=== PATIENT | female | born 1965 | race Caucasian/White ===

== ENCOUNTER 2018-02-22 14:12 | Inpatient (IN) | payer MEDICARE, SELFPAY ==
[2018-02-22 14:15] VITALS: BP 133/76; PULSE 84; RESP 18; TEMP 37.1; O2SAT 96; BMI 28.5; BMI 28.6
--- NOTE | 2018-02-22 16:12 | PCM.PN.HOSP ---
Subjective: This is a 52-year-old white female who comes from [facility] today after undergoing a left below the knee amputation on February 18. Patient has some discomfort in her stump but otherwise is doing well. Patient's history he has documented coronary artery disease but patient adamantly denies any cardiac history. Patient did have a femoropopliteal bypass in September on the left but unfortunately was not enough to salvage her leg on the left. Vitals/I&O's: Vital Signs Temp Pulse Resp BP Pulse Ox 37.1 C 84 18 133/76 H 96 02/22/18 14:15 02/22/18 14:15 02/22/18 14:15 02/22/18 14:15 02/22/18 14:15 Oxygen Delivery Method Room Air Weight: 80.4 kg Body Mass Index (BMI) 28.5 General: Alert, Cooperative, No apparent distress HEENT: Atraumatic, Normocephalic Oral: Moist Mucosa, - - Edentulous Neck: No Nodes, Thyroid Normal Size and Texture Lungs: Clear to auscultation, Normal air movement, No rhonchi, No wheeze Cardiovascular: Regular rate, Regular Rhythm, Normal S1, Normal S2, No murmurs Abdomen: Bowel Sounds Present, Soft, Non Tender, Non-Distended, No Hepato-splenomegaly Extremities: No edema, No Calf Tenderness, - - Left below the knee amputation. Left stump wrapped in bandages, did not remove. Psych/Mental Status: Normal Affect, Appropriate Current Medications Acetaminophen (Tylenol) 650 mg PO Q6H PRN PRN PRN Reason: PAIN Apixaban (Eliquis) 5 mg PO BID [facility]I Aripiprazole (Abilify) 20 mg PO DAILY [facility]I Aspirin (Aspirin, Baby) 81 mg PO DAILY@0800 [facility] Bisacodyl (Dulcolax) 10 mg RECTAL .PRN X 1 PRN PRN Reason: Constipation Cholecalciferol (Vitamin D) 5,000 unit PO DAILY [facility] Lamotrigine (Lamictal) 200 mg PO DAILY [facility] Magnesium Hydroxide (Milk Of Magnesia) 30 ml PO .PRN X 1 PRN PRN Reason: Constipation Nifedipine (Procardia Xl) 30 mg PO DAILY [facility] Oxycodone HCl (Oxyir) 5 mg PO Q6H PRN PRN PRN Reason: PAIN Polyethylene Glycol (Miralax) 17 gm PO DAILY PRN PRN Reason: Constipation Pravastatin Sodium (Pravachol) 80 mg PO DAILY [facility] Senna/Docusate Sodium (Senokot-S, Mandy-Colace) 2 tablet PO BID [facility] Medical Necessity - Tobacco Use Smoking Status: Former smoker Assessment/Plan 1. Peripheral arterial disease Status post left femoropopliteal bypass and subsequent left below the knee amputation performed on February 18. Continue with aspirin and statin Follow-up with her vascular surgeon as outpatient as previously prescribed 2. Lupus anticoagulant No family history according to the patient Continue with Eliqusharon 3. Bipolar disorder Stable Continue with Mayra Beverly 4. DVT prophylaxis: Patient currently anticoagulated Thank you for the consult. The hospitalist service will follow. If acute issues arise please do not hesitate to contact the hospitalist service. Code Visit Inpatient E&M: 36590 Subs Hosp L2
--- NOTE | 2018-02-22 16:17 | PN_ITS ---
Subjective: This is a 52-year-old white female who comes from [facility] today after undergoing a left below the knee amputation on February 18. Patient has some discomfort in her stump but otherwise is doing well. Patient's history he has documented coronary artery disease but patient adamantly denies any cardiac history. Patient did have a femoropopliteal bypass in September on the left but unfortunately was not enough to salvage her leg on the left. Vitals/I&O's: Vital Signs Temp Pulse Resp BP Pulse Ox 37.1 C 84 18 133/76 H 96 02/22/18 14:15 02/22/18 14:15 02/22/18 14:15 02/22/18 14:15 02/22/18 14:15 Oxygen Delivery Method Room Air Weight: 80.4 kg Body Mass Index (BMI) 28.5 General: Alert, Cooperative, No apparent distress HEENT: Atraumatic, Normocephalic Oral: Moist Mucosa, - - Edentulous Neck: No Nodes, Thyroid Normal Size and Texture Lungs: Clear to auscultation, Normal air movement, No rhonchi, No wheeze Cardiovascular: Regular rate, Regular Rhythm, Normal S1, Normal S2, No murmurs Abdomen: Bowel Sounds Present, Soft, Non Tender, Non-Distended, No Hepato- splenomegaly Extremities: No edema, No Calf Tenderness, - - Left below the knee amputation. Left stump wrapped in bandages, did not remove. Psych/Mental Status: Normal Affect, Appropriate Current Medications Acetaminophen (Tylenol) 650 mg PO Q6H PRN PRN PRN Reason: PAIN Apixaban (Eliquis) 5 mg PO BID [facility] Aripiprazole (Abilify) 20 mg PO DAILY [facility] Aspirin (Aspirin, Baby) 81 mg PO DAILY@0800 [facility] Bisacodyl (Dulcolax) 10 mg RECTAL .PRN X 1 PRN PRN Reason: Constipation Cholecalciferol (Vitamin D) 5,000 unit PO DAILY [facility] Lamotrigine (Lamictal) 200 mg PO DAILY [facility] Magnesium Hydroxide (Milk Of Magnesia) 30 ml PO .PRN X 1 PRN PRN Reason: Constipation Nifedipine (Procardia Xl) 30 mg PO DAILY [facility] Oxycodone HCl (Oxyir) 5 mg PO Q6H PRN PRN PRN Reason: PAIN Polyethylene Glycol (Miralax) 17 gm PO DAILY PRN PRN Reason: Constipation Pravastatin Sodium (Pravachol) 80 mg PO DAILY [facility] Senna/Docusate Sodium (Senokot-S, Mandy-Colace) 2 tablet PO BID [facility] Medical Necessity - Tobacco Use Smoking Status: Former smoker Assessment/Plan 1. Peripheral arterial disease * Status post left femoropopliteal bypass and subsequent left below the knee amputation performed on February 18. * Continue with aspirin and statin * Follow-up with her vascular surgeon as outpatient as previously prescribed 2. Lupus anticoagulant * No family history according to the patient * Continue with Eliquis 3. Bipolar disorder * Stable * Continue with Abilify Lamictal 4. DVT prophylaxis: Patient currently anticoagulated Thank you for the consult. The hospitalist service will follow. If acute issues arise please do not hesitate to contact the hospitalist service. Code Visit Inpatient E&M: 84172 Subs Hosp L2
--- NOTE | 2018-02-22 16:26 | CHAPLAIN ---
Type of Pastoral Visit _x__ Initial Visit ___ Follow-up Visit ___ On-call Visit ___ General Patient Visit ___ Spiritual Assessment ___ Family Conference ___ Bereavement ___ Rapid Response ___ Code Blue ___ Other (describe below) Pastoral Care Referral From _x__ Patient ___ Family _x__ Nurse ___ Physician ___ Sugar Mill Worker ___ Firebrick Layer Helper ___ Other (describe below) Sacrament/Intervention _x__ Active listening ___ Anointing ___ Jainism ___ Bereavement ___ Communion ___ Philomena exploration ___ ___ Life review _x__ Prayer ___ Reconciliation ___ Sacrament of Sick ___ Supportive presence ___ Wedding ___ Other (describe below) Pastoral Comments patient had just been admitted; introduce pt to spiritual care services and offer of support; pt displays positive attitude and has a connection with a faith; pt is open to future visits and prayer;
[2018-02-22] MEDS: oxyCODONE 5 MG Tablet PO ×2 (16:30→22:30)
[2018-02-22] MEDS: Acetaminophen 325 MG Tablet 650 MG PO (18:29)
--- NOTE | 2018-02-22 19:07 | NURSING ---
Aware of being an fall risk and must ask for staff assist and verbalized understanding and demonstrated call uribe use.
[2018-02-22 19:27] VITALS: O2SAT 97
[2018-02-22] MEDS: Senna/Docusate Sodium 1 Tablet 2 TABLET PO (21:54)
[2018-02-22] MEDS: APIXABAN 5 MG TABLET PO (21:54)
[2018-02-22 22:00] VITALS: BP 132/77; PULSE 88; RESP 16; TEMP 37.1; O2SAT 98
[2018-02-23] MEDS: Acetaminophen 325 MG Tablet 650 MG PO ×5 (02:17→21:59)
[2018-02-23] MEDS: oxyCODONE 5 MG Tablet PO ×2 (04:30→10:53)
[2018-02-23 06:05] LABS: Hematocrit 31.6 % (37-47); Hemoglobin 9.9 g/dl (12.0-15.0); Mean Corp Hgb Conc 31.3 g/gl (32-36); Mean Corpuscular Hgb 27.3 pg (27.0-32.0); Mean Corpuscular Volume 87.3 fL (81-99); Mean Platelet Vol. 9.1 fl (6.2-12.0); Platelet Count 480 K/mm3 (150-450); RBC Distribution Width CV 14.8 % (11.6-14.6); RBC Distribution Width SD 47.4 fl (35.1-43.9); Red Blood Count 3.62 M/mm3 (4.2-5.4); White Blood Count 8.3 K/mm3 (4.4-11.0)
[2018-02-23 06:07] LABS: Scan Indicated on CBC? Y/N NO
[2018-02-23 06:16] LABS: Anion Gap 9 (5-15); BUN 11 mg/dL (7-18); BUN/Creat Ratio 18.2 RATIO (10-20); Calcium,Total 8.5 mg/dL (8.5-10.1); Chloride 109 mmol/L (98-107); EST Glomerular Filtration Rate 110 mL/min (>60); Est Glom Filt Rate - Afr Amer 133 mL/min (>60); Estimated Creatinine Clearance 102.68 ml/min; Glucose 97 mg/dL (74-106); Potassium 3.8 mmol/L (3.5-5.1); Sodium Level 142 mmol/L (136-145)
[2018-02-23 08:00] VITALS: O2SAT 99
[2018-02-23 08:13] VITALS: BP 142/82; PULSE 80; RESP 17; TEMP 37.1; O2SAT 99
[2018-02-23] MEDS: APIXABAN 5 MG TABLET PO ×2 (08:13→22:00)
[2018-02-23] MEDS: Aspirin 81 MG TAB.CHEW PO (08:14)
[2018-02-23] MEDS: NIFEdipine 30 MG Tablet PO (08:14)
[2018-02-23] MEDS: lamoTRIgine 100 MG Tablet 200 MG PO (08:14)
[2018-02-23] MEDS: Pravastatin 80 MG Tablet PO (08:14)
[2018-02-23] MEDS: ARIPiprazole 10 MG Tablet 20 MG PO (10:53)
--- NOTE | 2018-02-23 12:11 | PCM.HP.STD ---
History of Present Illness Date of Admission: 02/23/18 Chief Complaint: Debility The patient is a 52 year old F admitted to the rehab unit status post left below the knee amputation performed 02/18/18 at [facility]. Goal of rehab is [facility] of prior level of functional independence. Her surgeon at [facility] was Dr. Savage. Her postoperative course was unremarkable. She says that her peripheral vascular disease is on the basis of hypercoagulable state due to lupus anticoagulant as well as smoking. She quit smoking about 3 months ago. She lives alone in her own home with 3 steps up to the main floor but she will need to negotiate 13 stairs on a regular basis. She says her pain currently is not well controlled, she has used Lyrica in the past and tolerated it. She did not tolerate gabapentin in the past. She says at [facility] she was given OxyContin 10 mg every 4 hours alternating with Tylenol which helped her pain she is willing to reinitiate Lyrica as well. Complaints. Past Medical History Allergies bupropion HCl [From Wellbutrin] Allergy (Verified 04/19/14 06:26) Other gabapentin enacarbil [From Horizant] Allergy (Verified 04/19/14 06:26) Other Home Medications: Ambulatory Orders Medication Instructions Recorded Aripiprazole [Abilify] 20 mg PO DAILY 04/19/14 Cholecalciferol (Vitamin D3) 5,000 unit PO DAILY 04/19/14 [Vitamin D] Lamotrigine [Lamictal] 200 mg PO DAILY 04/19/14 Acetaminophen [Tylenol] 650 mg PO Q6H PRN PRN 02/22/18 Apixaban [Eliquis] 5 mg PO BID 02/22/18 Aspirin [Aspirin, Baby] 81 mg PO DAILY@0800 02/22/18 Nifedipine [Nifedipine ER] 30 mg PO DAILY 02/22/18 Oxycodone [Oxyir] 5 mg PO Q6H PRN PRN 02/22/18 Polyethylene Glycol 3350 [Miralax] 17 gm PO DAILY PRN 02/22/18 Pravastatin [Pravachol] 80 mg PO DAILY 02/22/18 Smoking Status: Former smoker Tobacco Use: Non-smoker Alcohol: None Drugs: None Review of Systems Constitutional: Denies: Chills, Fever, Weight Change HEENT: Denies: Head Aches, Sinus Congestion, Sinus Drainage Cardiovascular: Denies: Chest Pain, Palpitations Respiratory: Denies: Cough, Shortness of breath at rest, Sputum production Gastrointestinal: Denies: Abdominal Pain, Nausea, Vomiting Genitourinary: Denies: Dysuria Musculoskeletal: Denies: Joint Pain, Joint Tenderness Skin: Denies: Rash, Wounds Neurological: Denies: Numbness, Tingling, Focal weakness Psychiatric: Denies: Anxiety, Depression, Homicidal Ideations, Suicidal Ideations Hematologic/ Lymphatic: Denies: Easy Bruising, Easy Bleeding VTE Information - Inpt Only VTE Present on Admission: Yes VTE Pharm Prophylaxis ordered?: Yes - Physical Exam General: Alert, Oriented x3, Cooperative HEENT: Atraumatic, PERRLA, EOMI, Normocephalic Lungs: Clear to auscultation Cardiovascular: Regular rate Abdomen: Bowel Sounds Present Extremities: No edema, Capillary Refill Less than 3 Seconds Skin: No rashes, No breakdown Neurological: Cranial nerves II-XII grossly intact Psych/Mental Status: Normal Affect, Appropriate Vital Signs Temp Pulse Resp BP Pulse Ox 37.1 C 80 17 142/82 H 99 02/23/18 08:13 02/23/18 08:13 02/23/18 08:13 02/23/18 08:13 02/23/18 08:13 Oxygen Delivery Method Room Air Weight: 79.7 kg Body Mass Index (BMI) 28.5 Intake and Output for Last 24 Hours 02/21/18 02/22/18 02/23/18 23:59 23:59 23:59 Intake Total 320 / 320 Balance 320 / 320 Laboratory Tests Past 24 Hrs 02/23/18 02/23/18 05:05 05:05 WBC 8.3 RBC 3.62 L Hgb 9.9 L Hct 31.6 L MCV 87.3 MCH 27.3 MCHC 31.3 L RDW 14.8 H RDW Differential 47.4 H Plt Count 480 H MPV 9.1 Sodium 142 Potassium 3.8 Chloride 109 H Carbon Dioxide 24.0 Anion Gap 9 BUN 11 Creatinine 0.60 Estim Creat Clear Calc 102.68 Est GFR (MDRD) Af Amer 133 Est GFR (MDRD) Non-Af 110 BUN/Creatinine Ratio 18.2 Glucose 97 Calcium 8.5 Current Medications Acetaminophen 650 mg 02/22/18 15:47 02/23/18 08:13 Tylenol PO 650 mg Q6H PRN PRN Administration PAIN Apixaban 5 mg 02/22/18 22:00 02/23/18 08:13 Eliquis PO 5 mg BID WEI Administration Aripiprazole 20 mg 02/23/18 10:00 02/23/18 10:53 Abilify PO 20 mg DAILY [facility] Administration Aspirin 81 mg 02/23/18 08:00 02/23/18 08:14 Aspirin, Baby PO 81 mg DAILY@0800 WEI Administration Cholecalciferol 5,000 unit 02/23/18 10:00 02/23/18 08:13 Vitamin D PO 5,000 unit DAILY [facility]I Administration Lamotrigine 200 mg 02/23/18 10:00 02/23/18 08:14 Lamictal PO 200 mg DAILY [facility] Administration Nifedipine 30 mg 02/23/18 10:00 02/23/18 08:14 Procardia Xl PO 30 mg DAILY [facility] Administration Oxycodone HCl 5 - 10 mg 02/22/18 17:00 02/23/18 10:53 Oxyir PO 10 mg Q6H PRN PRN Administration PAIN Pravastatin Sodium 80 mg 02/23/18 10:00 02/23/18 08:14 Pravachol PO 80 mg DAILY [facility] Administration Senna/Docusate Sodium 2 tablet 02/22/18 22:00 02/23/18 08:15 Senokot-S, Mandy-Colace PO Not Given BID [facility] Assessment/Plan Debility status post left [id number] amputation. Goal of rehab is [facility] of functional independence prior. Currently wheelchair transfers. Plan: Physical therapy for transfers Occupational Therapy's for ADLs Bowel protocol As needed analgesics Anticoagulation/DVT prophylaxis: Tatiana, history of lupus anticoagulant
--- NOTE | 2018-02-23 12:14 | HP.PCM_ITS ---
History of Present Illness Date of Admission: 02/23/18 Chief Complaint: Debility The patient is a 52 year old F admitted to the rehab unit status post left below the knee amputation performed 02/18/18 at [facility]. Goal of rehab is denominational of prior level of functional independence. Her surgeon at [facility] was Dr. Savage. Her postoperative course was unremarkable. She says that her peripheral vascular disease is on the basis of hypercoagulable state due to lupus anticoagulant as well as smoking. She quit smoking about 3 months ago. She lives alone in her own home with 3 steps up to the main floor but she will need to negotiate 13 stairs on a regular basis. She says her pain currently is not well controlled, she has used Lyrica in the past and tolerated it. She did not tolerate gabapentin in the past. She says at [facility] she was given OxyContin 10 mg every 4 hours alternating with Tylenol which helped her pain she is willing to reinitiate Lyrica as well. Complaints. Past Medical History Allergies bupropion HCl [From Wellbutrin] Allergy (Verified 04/19/14 06:26) Other gabapentin enacarbil [From Horizant] Allergy (Verified 04/19/14 06:26) Other Home Medications: Ambulatory Orders Medication Instructions Recorded Aripiprazole [Abilify] 20 mg PO DAILY 04/19/14 Cholecalciferol (Vitamin D3) 5,000 unit PO DAILY 04/19/14 [Vitamin D] Lamotrigine [Lamictal] 200 mg PO DAILY 04/19/14 Acetaminophen [Tylenol] 650 mg PO Q6H PRN PRN 02/22/18 Apixaban [Eliquis] 5 mg PO BID 02/22/18 Aspirin [Aspirin, Baby] 81 mg PO DAILY@0800 02/22/18 Nifedipine [Nifedipine ER] 30 mg PO DAILY 02/22/18 Oxycodone [Oxyir] 5 mg PO Q6H PRN PRN 02/22/18 Polyethylene Glycol 3350 [Miralax] 17 gm PO DAILY PRN 02/22/18 Pravastatin [Pravachol] 80 mg PO DAILY 02/22/18 Smoking Status: Former smoker Tobacco Use: Non-smoker Alcohol: None Drugs: None Review of Systems Constitutional: Denies: Chills, Fever, Weight Change HEENT: Denies: Head Aches, Sinus Congestion, Sinus Drainage Cardiovascular: Denies: Chest Pain, Palpitations Respiratory: Denies: Cough, Shortness of breath at rest, Sputum production Gastrointestinal: Denies: Abdominal Pain, Nausea, Vomiting Genitourinary: Denies: Dysuria Musculoskeletal: Denies: Joint Pain, Joint Tenderness Skin: Denies: Rash, Wounds Neurological: Denies: Numbness, Tingling, Focal weakness Psychiatric: Denies: Anxiety, Depression, Homicidal Ideations, Suicidal Ideations Hematologic/ Lymphatic: Denies: Easy Bruising, Easy Bleeding VTE Information - Inpt Only VTE Present on Admission: Yes VTE Pharm Prophylaxis ordered?: Yes - Physical Exam General: Alert, Oriented x3, Cooperative HEENT: Atraumatic, PERRLA, EOMI, Normocephalic Lungs: Clear to auscultation Cardiovascular: Regular rate Abdomen: Bowel Sounds Present Extremities: No edema, Capillary Refill Less than 3 Seconds Skin: No rashes, No breakdown Neurological: Cranial nerves II-XII grossly intact Psych/Mental Status: Normal Affect, Appropriate Vital Signs Temp Pulse Resp BP Pulse Ox 37.1 C 80 17 142/82 H 99 02/23/18 08:13 02/23/18 08:13 02/23/18 08:13 02/23/18 08:13 02/23/18 08:13 Oxygen Delivery Method Room Air Weight: 79.7 kg Body Mass Index (BMI) 28.5 Intake and Output for Last 24 Hours 02/21/18 02/22/18 02/23/18 23:59 23:59 23:59 Intake Total 320 / 320 Balance 320 / 320 Laboratory Tests Past 24 Hrs 02/23/18 02/23/18 05:05 05:05 WBC 8.3 RBC 3.62 L Hgb 9.9 L Hct 31.6 L MCV 87.3 MCH 27.3 MCHC 31.3 L RDW 14.8 H RDW Differential 47.4 H Plt Count 480 H MPV 9.1 Sodium 142 Potassium 3.8 Chloride 109 H Carbon Dioxide 24.0 Anion Gap 9 BUN 11 Creatinine 0.60 Estim Creat Clear Calc 102.68 Est GFR (MDRD) Af Amer 133 Est GFR (MDRD) Non-Af 110 BUN/Creatinine Ratio 18.2 Glucose 97 Calcium 8.5 Current Medications Acetaminophen 650 mg 02/22/18 15:47 02/23/18 08:13 Tylenol PO 650 mg Q6H PRN PRN Administration PAIN Apixaban 5 mg 02/22/18 22:00 02/23/18 08:13 Eliquis PO 5 mg BID WEI Administration Aripiprazole 20 mg 02/23/18 10:00 02/23/18 10:53 Abilify PO 20 mg DAILY [facility] Administration Aspirin 81 mg 02/23/18 08:00 02/23/18 08:14 Aspirin, Baby PO 81 mg DAILY@0800 [facility] Administration Cholecalciferol 5,000 unit 02/23/18 10:00 02/23/18 08:13 Vitamin D PO 5,000 unit DAILY [facility] Administration Lamotrigine 200 mg 02/23/18 10:00 02/23/18 08:14 Lamictal PO 200 mg DAILY [facility] Administration Nifedipine 30 mg 02/23/18 10:00 02/23/18 08:14 Procardia Xl PO 30 mg DAILY [facility] Administration Oxycodone HCl 5 - 10 mg 02/22/18 17:00 02/23/18 10:53 Oxyir PO 10 mg Q6H PRN PRN Administration PAIN Pravastatin Sodium 80 mg 02/23/18 10:00 02/23/18 08:14 Pravachol PO 80 mg DAILY [facility] Administration Senna/Docusate Sodium 2 tablet 02/22/18 22:00 02/23/18 08:15 Senokot-S, Mandy-Colace PO Not Given BID [facility] Assessment/Plan Debility status post left [id number] amputation. Goal of rehab is denominational of functional independence prior. Currently wheelchair transfers. Plan: Physical therapy for transfers Occupational Therapy's for ADLs Bowel protocol As needed analgesics Anticoagulation/DVT prophylaxis: Tatiana, history of lupus anticoagulant
--- NOTE | 2018-02-23 12:14 | PCM.RU.PYE ---
Admission Information Status Changes from Prescreening?: No changes Identified Actual Problem List:: Pain, ALteration in Cmfrt, Alteration in Sleep, Mobility Impaired, Self Care Deficit, Ineffect.D/C Plan r/t Psy Potential Problem List:: DVT, Bleeding, Infection, UTI, Aspiration, Falls, Skin Integrity, Depression Risk of Complications DVT: LMWH, THOMAS Hose, Sequential Compression Device Bleeding: Monitor Lab Values, Nursing to Teach Precautions for anti-coagulation therapy., Wound, if applicable, to be assessed every shift., Stroke patients assessed for lethargy or change in status. Infection: Clinical Staff to Monitor for S/S of infection:, S/S of infection include fever, redness, warmth, etc. Urinary Tract Infection: Monitor for frequency, burning, discomfort, or incontinence., Nursing will obtain urine sample for urinalysis and C&S when ordered. Aspiration: Clinical staff will monitor for coughing, drooling, congestion., Speech will evaluate swallowing and dsyphasia., Nursing will monitor patient swallowing during meals. Falls: Patient will be evaluated for Fall Precautions, Patient will be placed on Fall Precautions as indicated per protocol. Skin Breakdown: Nursing will assess skin daily using assessment tool., Nursing will place on Skin Breakdown Precautions as indicated. Pain: Clinical staff will assess patient's pain level per protocol., Medications will be given, if needed, and the pain level reassessed., Other methods: Massage, distraction, decrease stimulus, etc. used PRN. Plan of Care Patient requires physician specializing in physical medicine and rehab oversight to provide close medical supervision of rehab issues including: Pain Management, Sleep Problems, Bowel and Bladder, Medical and co-morbidity Management, DVT prophylaxis, Rehabilitation Leadership, Coordination of treatment team Patient needs Physical Therapy: For a minimum of 1 hour, At least 5 out of 7 days Patient needs Physical Therapy to improve:: Mobility, Mobility, Mobility, Strengthening, Transfers, Stretching, ROM, Endurance, Stairs, Gait, Balance Patient needs Occupational Therapy: For a minimum of 1 hour, At least 5 out of 7 days Patient needs Occupational Therapy to improve ADL's incl.: Eating, Grooming, Bathing, Dressing, Toileting, Toilet transfers, Community Reintegration, Higher functioning activities, Household tasks, Adaptive Equipment, Splinting, Other activities as determined Patient requires 24/ Rehabilitation Nursing for: Pain Issues, Identifying and preventing risk factors, Monitoring and reporting current medical conditions, Assisting with ambulation, transfer, and all ADL's, Teaching patients about disease process and medications, Family teaching, Providing safe environment, Bowel and Bladder Issues, Skin integrity, Medication Management Patient needs Service Restorer Emergency/ Case Management for: Discharge Planning, Arranging Home Equipment or Services, Family Interventions Patient needs Dietary and Nutrition Services for: Adequate Nutrition, Nutritional Supplements, Nutritional Education Goals Patient will remain: free from falls, or injury at time of discharge. Patient will perform bed mobility at: MOD I level of assist. Patient will complete transfers from bed to chair at: MOD I level of assist. Patient will ambulate: with LRD Patient will complete upper body dressing at: MOD I level of assist. Patient will complete lower body dressing at: MOD I level of assist. Patient will complete toileting at: MOD I level of assist. Patient will perform bathing at: MOD I level of assist. Patient will complete grooming at: MOD I level of assist. Patient will complete home management skills at: MOD I level of assist. Patient will achieve: 12 stairs, at MOD I assist Patient will have pain level of: of 3 or less Patient's skin will: remain intact, free from infection. Patient will receive: adequate nutrition. Discharge Planning Pt Prognosis for Sig. Practical Improv. w/in Reasonable Time: Good Anticipated D/C Destination: Home with Outpt Therapy Was Preadmission Assessment Accurate?: Yes
[2018-02-23] MEDS: Pregabalin 25 MG Capsule PO ×2 (13:59→22:00)
[2018-02-23] MEDS: oxyCODONE 5 MG Tablet 10 MG PO ×2 (16:14→20:15)
[2018-02-23 20:02] VITALS: BP 127/77; PULSE 82; RESP 17; TEMP 36.7; O2SAT 96
[2018-02-23] MEDS: Senna/Docusate Sodium 1 Tablet 2 TABLET PO (22:00)
[2018-02-24] MEDS: Acetaminophen 325 MG Tablet 650 MG PO ×4 (06:09→18:47)
[2018-02-24 06:59] VITALS: O2SAT 98
[2018-02-24 07:19] VITALS: BP 145/68; PULSE 87; RESP 20; TEMP 36.9; O2SAT 96
[2018-02-24] MEDS: Senna/Docusate Sodium 1 Tablet 2 TABLET PO ×2 (08:25→21:35)
[2018-02-24] MEDS: oxyCODONE 5 MG Tablet 10 MG PO ×4 (08:25→21:24)
[2018-02-24] MEDS: lamoTRIgine 100 MG Tablet 200 MG PO (08:26)
[2018-02-24] MEDS: Aspirin 81 MG TAB.CHEW PO (08:26)
[2018-02-24] MEDS: ARIPiprazole 10 MG Tablet 20 MG PO (08:27)
[2018-02-24] MEDS: Pregabalin 25 MG Capsule PO ×2 (08:55→21:25)
[2018-02-24] MEDS: Pravastatin 80 MG Tablet PO (08:56)
[2018-02-24] MEDS: APIXABAN 5 MG TABLET PO ×2 (08:56→21:35)
[2018-02-24] MEDS: NIFEdipine 30 MG Tablet PO (08:56)
--- NOTE | 2018-02-24 09:59 | PCM.PN.NEU ---
Subjective: Patient is improved today but she would like her medications given around the clock instead of while awake. No other complaints. Tolerating therapies. No GI or complaints. - Physical Exam General: Alert, Oriented x3, Cooperative, No apparent distress Neurological: Cranial nerves II-XII grossly intact Psych/Mental Status: Normal Affect, Alert and oriented to time, place, person, mood and affect Vital Signs Temp Pulse Resp BP Pulse Ox 36.9 C 87 20 H 145/68 H 96 02/24/18 07:19 02/24/18 07:19 02/24/18 07:19 02/24/18 07:19 02/24/18 07:19 Oxygen Delivery Method Room Air Weight: 79.7 kg Body Mass Index (BMI) 28.5 Intake and Output for Last 24 Hours 02/22/18 02/23/18 02/24/18 23:59 23:59 23:59 Intake Total 800 / 800 240 / 240 Output Total 520 / 520 Balance 280 / 280 240 / 240 Current Medications Generic Name Dose Route Start Last Admin Trade Name Kiq PRN Reason Stop Dose Admin Acetaminophen 650 mg 02/23/18 14:00 02/24/18 06:09 Tylenol PO 650 mg Q4HWA WEI Administration Apixaban 5 mg 02/22/18 22:00 02/24/18 08:56 Eliquis PO 5 mg BID WEI Administration Aripiprazole 20 mg 02/23/18 10:00 02/24/18 08:27 Abilify PO 20 mg DAILY [facility] Administration Aspirin 81 mg 02/23/18 08:00 02/24/18 08:26 Aspirin, Baby PO 81 mg DAILY@0800 [facility] Administration Bisacodyl 10 mg 02/22/18 15:48 Dulcolax RECTAL .PRN X 1 PRN Constipation Cholecalciferol 5,000 unit 02/23/18 10:00 02/24/18 08:26 Vitamin D PO 5,000 unit DAILY [facility] Administration Lamotrigine 200 mg 02/23/18 10:00 02/24/18 08:26 Lamictal PO 200 mg DAILY [facility] Administration Magnesium Hydroxide 30 ml 02/22/18 15:48 Milk Of Magnesia PO .PRN X 1 PRN Constipation Nifedipine 30 mg 02/23/18 10:00 02/24/18 08:56 Procardia Xl PO 30 mg DAILY [facility] Administration Oxycodone HCl 10 mg 02/24/18 12:00 Oxyir PO Q4H [facility] Polyethylene Glycol 17 gm 02/22/18 15:47 Miralax PO DAILY PRN Constipation Pravastatin Sodium 80 mg 02/23/18 10:00 02/24/18 08:56 Pravachol PO 80 mg DAILY [facility] Administration Pregabalin 25 mg 02/23/18 22:00 02/24/18 08:55 Lyrica PO 25 mg BID [facility] Administration Senna/Docusate Sodium 2 tablet 02/22/18 22:00 02/24/18 08:25 Senokot-S, Mandy-Colace PO 2 tablet BID [facility]I Administration Medical Necessity - Tobacco Use Smoking Status: Former smoker Tobacco Use: Non-smoker Assessment/Plan Debility status post left [id number] amputation. Goal of rehab is uats[facility] of functional independence prior. Currently wheelchair transfers. Plan: Physical therapy for transfers Occupational Therapy's for ADLs Bowel protocol As needed analgesics: increase oxy to q4 Anticoagulation/DVT prophylaxis: Eliquis, history of lupus anticoagulant
[2018-02-24 22:00] VITALS: PULSE 74; RESP 16; O2SAT 97
[2018-02-25] MEDS: Acetaminophen 325 MG Tablet 650 MG PO ×6 (00:22→21:10)
[2018-02-25] MEDS: oxyCODONE 5 MG Tablet 10 MG PO ×7 (01:04→23:47)
--- NOTE | 2018-02-25 07:20 | NURSING ---
pt reports that her pain is at a 7-8 on pain scale land that is what she is use to at this time. pt is currently in bed reports that she is tired from not sleeping and is not tired from the medication
[2018-02-25 08:00] VITALS: BP 121/74; PULSE 75; RESP 18; TEMP 36.7; O2SAT 96
[2018-02-25] MEDS: Pravastatin 80 MG Tablet PO (08:31)
[2018-02-25] MEDS: ARIPiprazole 10 MG Tablet 20 MG PO (08:31)
[2018-02-25] MEDS: NIFEdipine 30 MG Tablet PO (08:31)
[2018-02-25] MEDS: lamoTRIgine 100 MG Tablet 200 MG PO (08:31)
[2018-02-25] MEDS: Aspirin 81 MG TAB.CHEW PO (08:31)
[2018-02-25] MEDS: Senna/Docusate Sodium 1 Tablet 2 TABLET PO ×2 (09:34→21:53)
[2018-02-25] MEDS: APIXABAN 5 MG TABLET PO ×2 (09:35→21:53)
[2018-02-25] MEDS: Pregabalin 25 MG Capsule PO ×2 (09:36→21:10)
[2018-02-25 19:55] VITALS: BP 126/63; PULSE 80; RESP 15; TEMP 36.8; O2SAT 99
[2018-02-25 22:00] VITALS: PULSE 80; RESP 15; O2SAT 99
[2018-02-26] MEDS: oxyCODONE 5 MG Tablet 10 MG PO ×5 (04:00→20:01)
[2018-02-26] MEDS: Acetaminophen 325 MG Tablet 650 MG PO ×5 (06:43→21:02)
[2018-02-26] MEDS: ARIPiprazole 10 MG Tablet 20 MG PO (08:00)
[2018-02-26] MEDS: Pregabalin 25 MG Capsule PO ×2 (08:00→21:02)
[2018-02-26] MEDS: Senna/Docusate Sodium 1 Tablet 2 TABLET PO ×2 (08:00→21:02)
[2018-02-26] MEDS: lamoTRIgine 100 MG Tablet 200 MG PO (08:01)
[2018-02-26] MEDS: APIXABAN 5 MG TABLET PO ×2 (08:01→21:02)
[2018-02-26] MEDS: Aspirin 81 MG TAB.CHEW PO (08:01)
[2018-02-26] MEDS: Pravastatin 80 MG Tablet PO (08:02)
[2018-02-26] MEDS: NIFEdipine 30 MG Tablet PO (08:02)
[2018-02-26 08:03] VITALS: BP 116/67; PULSE 89; RESP 16; TEMP 36.8; O2SAT 99
[2018-02-26 19:14] VITALS: BP 124/78; PULSE 85; RESP 16; TEMP 36.8; O2SAT 98
[2018-02-27] MEDS: oxyCODONE 5 MG Tablet 10 MG PO ×6 (01:03→20:01)
--- NOTE | 2018-02-27 04:25 | NURSING ---
Pt postponed oxyir 0400 admin d/t feeling upset stomach and/or possible need for a bm. Pt provided saltine crackers, kevin-john, and toileting by staff. Pain med returned and will monitor pt.
--- NOTE | 2018-02-27 05:13 | NURSING ---
Upon monitoring pt, stomach upset has past and pt provided scheduled oxyir per request. Pain meds given with saltine crackers. Pt declined awakened at this time to get ready for the day. pt requests sleeping for awhile longer.
[2018-02-27] MEDS: Acetaminophen 325 MG Tablet 650 MG PO ×5 (06:20→21:51)
[2018-02-27] MEDS: lamoTRIgine 100 MG Tablet 200 MG PO (07:56)
[2018-02-27] MEDS: NIFEdipine 30 MG Tablet PO (07:57)
[2018-02-27] MEDS: Pravastatin 80 MG Tablet PO (07:57)
[2018-02-27] MEDS: Aspirin 81 MG TAB.CHEW PO (07:57)
[2018-02-27] MEDS: APIXABAN 5 MG TABLET PO ×2 (07:57→21:51)
[2018-02-27] MEDS: Senna/Docusate Sodium 1 Tablet 2 TABLET PO ×2 (07:57→21:52)
[2018-02-27] MEDS: ARIPiprazole 10 MG Tablet 20 MG PO (08:00)
[2018-02-27] MEDS: Pregabalin 25 MG Capsule PO ×2 (09:56→21:51)
[2018-02-27 09:58] VITALS: BP 129/71; PULSE 72; RESP 16; TEMP 36.7; O2SAT 97
[2018-02-27 19:57] VITALS: BP 106/64; PULSE 89; RESP 18; TEMP 36.4; O2SAT 98
[2018-02-28] MEDS: oxyCODONE 5 MG Tablet 10 MG PO ×6 (00:25→20:15)
[2018-02-28] MEDS: Acetaminophen 325 MG Tablet 650 MG PO ×5 (06:22→21:22)
[2018-02-28] MEDS: lamoTRIgine 100 MG Tablet 200 MG PO (07:48)
[2018-02-28] MEDS: NIFEdipine 30 MG Tablet PO (07:48)
[2018-02-28] MEDS: Aspirin 81 MG TAB.CHEW PO (07:48)
[2018-02-28] MEDS: ARIPiprazole 10 MG Tablet 20 MG PO (07:48)
[2018-02-28] MEDS: Pravastatin 80 MG Tablet PO (07:48)
[2018-02-28] MEDS: APIXABAN 5 MG TABLET PO ×2 (07:48→21:21)
[2018-02-28] MEDS: Senna/Docusate Sodium 1 Tablet 2 TABLET PO ×2 (07:52→21:22)
[2018-02-28 08:30] VITALS: BP 123/76; PULSE 98; RESP 20; TEMP 36.5; O2SAT 97
[2018-02-28] MEDS: Pregabalin 25 MG Capsule PO ×2 (10:44→21:11)
--- NOTE | 2018-02-28 12:14 | CASEMGMT ---
Plan of care meeting held. Patient present as well as patient friend. No discharge date set at this time. Patient to continue with further care and treatment on the inpatient rehab unit. Patient approved 16 Medicare days with a discharge on or by 03/11/18. Patient plans to discharge to home with friends for support/24hr care as needed. Support given. Will continue to follow. Maryann OLIVER, ROLLER PICKER
--- NOTE | 2018-02-28 12:35 | PCM.PN.NEU ---
Subjective: NO issues overnight. Staffed in team meeting today. All questions were answered. 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 Savage on 02/18/18, admitted to [facility] with debility s/p Left BKA amputation, for > 3 hrs therapy, with a goal of returning back to her home at or near her prior level of functional independence. With AD-qjmzelosd-jbmzdxb assist, walked 35 feet, uses walker, still have to address stairs. With OT- dressing/bathing/lower body dressing is contact guard. She did complaint of phantom limb pain, with pain being around 7-9/10 intensity. - Physical Exam General: Alert HEENT: Normocephalic Neck: Supple Lungs: Normal air movement Cardiovascular: Normal S1, Normal S2 Abdomen: Bowel Sounds Present Extremities: No cyanosis Musculoskeletal: No Tenderness to Palpation of Joints or Extremities Neurological: Cranial nerves II-XII grossly intact, Neuro grossly intact, Motor Exam 5/5 strength throughout, Muscle tone normal, Sensory exam intact to light touch and pain, - - Left BKA, Reflexes + B/L B/S/T/K/A Vital Signs Temp Pulse Resp BP Pulse Ox 97.7 F L 98 20 H 123/76 H 97 02/28/18 08:30 02/28/18 08:30 02/28/18 08:30 02/28/18 08:30 02/28/18 08:30 Oxygen Delivery Method Room Air Weight: 79.7 kg Body Mass Index (BMI) 28.5 Intake and Output for Last 24 Hours 02/26/18 02/27/18 02/28/18 23:59 23:59 23:59 Intake Total 240 / 240 1120 / 1120 360 / 360 Balance 240 / 240 1120 / 1120 360 / 360 Medical Necessity - Tobacco Use Smoking Status: Former smoker Tobacco Use: Non-smoker Assessment/Plan 52 yr CF with PMH HTN, HLD, Lupus anticoagulant, PVD s/p angioplasty and bypass, Bipolar disorder, 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 Savage on 02/18/18, admitted to [facility] with debility s/p Left BKA amputation, for > 3 hrs therapy, with a goal of returning back to her home at or near her prior level of functional independence Plan -PT for gait stability -OT for ADLs -Analgesics as needed. On Oxy IR 10 mg PO q 4 hrly. Will start Duragesic patch 12 mcg daily and will change Oxy IR to PRN. Tylenol as needed. Is also on Lyrica 25 mg PO BID. -Left BKA- stable, no incision site redness or infection. -HTN-BP stable on Nifedipine -HLD- on Pravastatin -Lupus anticoagulant-on Eliquis -PVD- on ASA, Left BKA, no redness or infection of incision/suture site -Bipolar d/o- stable, on Aripiprazole and Lamictal 200 mg PO once daily. -GI/DVT prophylaxis -Follow up with Surgeon Dr. Savage on 03/22/18 and follow up for suture removal on 03/22/18. -Fall precautions -Further medical management per hospitalist recommendations.
--- NOTE | 2018-02-28 12:39 | PN.NEURO_ITS ---
Subjective: NO issues overnight. Staffed in team meeting today. All questions were answered. 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 Savage on 02/18/18, admitted to [facility] with debility s/p Left BKA amputation, for > 3 hrs therapy , with a goal of returning back to her home at or near her prior level of functional independence. With LR-pgnrigbhb-aypcblb assist, walked 35 feet, uses walker, still have to address stairs. With OT- dressing/bathing/lower body dressing is contact guard. She did complaint of phantom limb pain, with pain being around 7-9/10 intensity. - Physical Exam General: Alert HEENT: Normocephalic Neck: Supple Lungs: Normal air movement Cardiovascular: Normal S1, Normal S2 Abdomen: Bowel Sounds Present Extremities: No cyanosis Musculoskeletal: No Tenderness to Palpation of Joints or Extremities Neurological: Cranial nerves II-XII grossly intact, Neuro grossly intact, Motor Exam 5/5 strength throughout, Muscle tone normal, Sensory exam intact to light touch and pain, - - Left BKA, Reflexes + B/L B/S/T/K/A Vital Signs Temp Pulse Resp BP Pulse Ox 97.7 F L 98 20 H 123/76 H 97 02/28/18 08:30 02/28/18 08:30 02/28/18 08:30 02/28/18 08:30 02/28/18 08:30 Oxygen Delivery Method Room Air Weight: 79.7 kg Body Mass Index (BMI) 28.5 Intake and Output for Last 24 Hours 02/26/18 02/27/18 02/28/18 23:59 23:59 23:59 Intake Total 240 / 240 1120 / 1120 360 / 360 Balance 240 / 240 1120 / 1120 360 / 360 Medical Necessity - Tobacco Use Smoking Status: Former smoker Tobacco Use: Non-smoker Assessment/Plan 52 yr CF with PMH HTN, HLD, Lupus anticoagulant, PVD s/p angioplasty and bypass , Bipolar disorder, 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 Savage on 02/18/18, admitted to [facility] with debility s/p Left BKA amputation, for > 3 hrs therapy, with a goal of returning back to her home at or near her prior level of functional independence Plan -PT for gait stability -OT for ADLs -Analgesics as needed. On Oxy IR 10 mg PO q 4 hrly. Will start Duragesic patch 12 mcg daily and will change Oxy IR to PRN. Tylenol as needed. Is also on Lyrica 25 mg PO BID. -Left BKA- stable, no incision site redness or infection. -HTN-BP stable on Nifedipine -HLD- on Pravastatin -Lupus anticoagulant-on Eliquis -PVD- on ASA, Left BKA, no redness or infection of incision/suture site -Bipolar d/o- stable, on Aripiprazole and Lamictal 200 mg PO once daily. -GI/DVT prophylaxis -Follow up with Surgeon Dr. Savage on 03/22/18 and follow up for suture removal on 03/22/18. -Fall precautions -Further medical management per hospitalist recommendations.
--- NOTE | 2018-02-28 14:25 | PCM.PN.HOSP ---
Subjective: Patient is a 52-year-old female with history of peripheral vascular disease who underwent left below-knee amputation and left femoropopliteal bypass at [facility] subsequently transferred to the inpatient rehab unit for subsequent management Objective: GENERAL: cooperative HEENT: Clear conjunctiva, NECK; supple, normal thyroid, CHEST: Clear to auscultation bilaterally, HEART: Regular S1 S2, no audible murmurs ABDOMEN: soft, non-tender, normoactive bowel sounds, RECTAL: deferred EXTREMITIES: Left BKA HOUSING LIAISON: Awake; no lateralizing signs. SKIN: No Rash Vitals/I&O's: Vital Signs Temp Pulse Resp BP Pulse Ox 97.7 F L 98 20 H 123/76 H 97 02/28/18 08:30 02/28/18 08:30 02/28/18 08:30 02/28/18 08:30 02/28/18 08:30 Oxygen Delivery Method Room Air Weight: 79.7 kg Body Mass Index (BMI) 28.5 Intake and Output for Last 24 Hours 02/26/18 02/27/18 02/28/18 23:59 23:59 23:59 Intake Total 240 / 240 1120 / 1120 720 / 720 Balance 240 / 240 1120 / 1120 720 / 720 Current Medications Acetaminophen (Tylenol) 650 mg PO Q4HWA [facility] Last Admin: 02/28/18 13:30 Dose: 650 mg Apixaban (Eliquis) 5 mg PO BID [facility] Last Admin: 02/28/18 07:48 Dose: 5 mg Aripiprazole (Abilify) 20 mg PO DAILY [facility] Last Admin: 02/28/18 07:48 Dose: 20 mg Aspirin (Aspirin, Baby) 81 mg PO DAILY@0800 [facility] Last Admin: 02/28/18 07:48 Dose: 81 mg Bisacodyl (Dulcolax) 10 mg RECTAL .PRN X 1 PRN PRN Reason: Constipation Cholecalciferol (Vitamin D) 5,000 unit PO DAILY [facility] Last Admin: 02/28/18 07:48 Dose: 5,000 unit Fentanyl (Duragesic Patch) 12 mcg TRANSDERM. Q3D [facility] Last Admin: 02/28/18 10:41 Dose: 12 mcg Lamotrigine (Lamictal) 200 mg PO DAILY [facility] Last Admin: 02/28/18 07:48 Dose: 200 mg Magnesium Hydroxide (Milk Of Magnesia) 30 ml PO .PRN X 1 PRN PRN Reason: Constipation Nifedipine (Procardia Xl) 30 mg PO DAILY [facility] Last Admin: 02/28/18 07:48 Dose: 30 mg Oxycodone HCl (Oxyir) 10 mg PO Q4H [facility] Last Admin: 02/28/18 11:52 Dose: 10 mg Polyethylene Glycol (Miralax) 17 gm PO DAILY PRN PRN Reason: Constipation Pravastatin Sodium (Pravachol) 80 mg PO DAILY [facility] Last Admin: 02/28/18 07:48 Dose: 80 mg Pregabalin (Lyrica) 25 mg PO BID [facility] Last Admin: 02/28/18 10:44 Dose: 25 mg Senna/Docusate Sodium (Senokot-S, Mandy-Colace) 2 tablet PO BID [facility] Last Admin: 02/28/18 07:52 Dose: 1 tablet Medical Necessity - Tobacco Use Smoking Status: Former smoker Tobacco Use: Non-smoker Assessment/Plan Patient is a 52-year-old female with history of peripheral vascular disease who underwent left below-knee amputation and left femoropopliteal bypass at [facility] subsequently transferred to the inpatient rehab unit for subsequent management 1. Peripheral arterial disease status post left femoropopliteal bypass with subsequent left BKA performed on 02/18/2018 2. Lupus anticoagulant patient is on systemic anticoagulation with Eliquis 3. Bipolar disorder controlled on Abilify and Lamictal 4. DVT prophylaxis already on systemic anticoagulation 5. Dyslipidemia-patient is on statin therapy, continued at home dose Active Medications [facility] Admin: 02/28/18 13:30 Dose: 650 mg Apixaban (Eliquis) 5 mg PO BID [facility] Last Admin: 02/28/18 07:48 Dose: 5 mg Aripiprazole (Abilify) 20 mg PO DAILY [facility] Last Admin: 02/28/18 07:48 Dose: 20 mg Aspirin (Aspirin, Baby) 81 mg PO DAILY@0800 [facility] Last Admin: 02/28/18 07:48 Dose: 81 mg Bisacodyl (Dulcolax) 10 mg RECTAL .PRN X 1 PRN PRN Reason: Constipation Cholecalciferol (Vitamin D) 5,000 unit PO DAILY [facility] Last Admin: 02/28/18 07:48 Dose: 5,000 unit Fentanyl (Duragesic Patch) 12 mcg TRANSDERM. Q3D [facility] Last Admin: 02/28/18 10:41 Dose: 12 mcg Lamotrigine (Lamictal) 200 mg PO DAILY [facility] Last Admin: 02/28/18 07:48 Dose: 200 mg Magnesium Hydroxide (Milk Of Magnesia) 30 ml PO .PRN X 1 PRN PRN Reason: Constipation Nifedipine (Procardia Xl) 30 mg PO DAILY [facility] Last Admin: 02/28/18 07:48 Dose: 30 mg Oxycodone HCl (Oxyir) 10 mg PO Q4H [facility] Last Admin: 02/28/18 11:52 Dose: 10 mg Polyethylene Glycol (Miralax) 17 gm PO DAILY PRN PRN Reason: Constipation Pravastatin Sodium (Pravachol) 80 mg PO DAILY [facility] Last Admin: 02/28/18 07:48 Dose: 80 mg Pregabalin (Lyrica) 25 mg PO BID [facility] Last Admin: 02/28/18 10:44 Dose: 25 mg Senna/Docusate Sodium (Senokot-S, Mandy-Colace) 2 tablet PO BID [facility] Last Admin: 02/28/18 07:52 Dose: 1 tablet Code Visit Inpatient E&M: 07115 Subs Hosp L2
--- NOTE | 2018-02-28 15:18 | NURSING ---
This nurse called Dr. Savage office per patient request to see if she can shower with a bag over her stump. Will await call back. Patient has complained about increase pain today and duragesic patch added in by dr rodrigues. Dr. Leal assessed patient and he is aware that this nurse redressed and reapplied stump calender wind up helper. No drainage, mild redness, swelling + non pitting, sam intact. Popliteal pulse present. Circumference from middle of below knee and above incision is 42 cm. Will measure daily. Patient did report that she worked extra hard today. Patient encouraged to rest and elevate and prn ice applied.
--- NOTE | 2018-02-28 16:09 | CHAPLAIN ---
Type of Pastoral Visit ___ Initial Visit _x__ Follow-up Visit ___ On-call Visit ___ General Patient Visit ___ Spiritual Assessment ___ Family Conference ___ Bereavement ___ Rapid Response ___ Code Blue ___ Other (describe below) Pastoral Care Referral From _x__ Patient ___ Family ___ Nurse ___ Physician ___ Christmas Tree Farm Worker ___ Assistant Chief Engineer ___ Other (describe below) Sacrament/Intervention _x__ Active listening ___ Anointing ___ Adventism ___ Bereavement ___ Communion ___ Philomena exploration ___ ___ Life review _x__ Prayer ___ Reconciliation ___ Sacrament of Sick ___ Supportive presence ___ Wedding ___ Other (describe below) Pastoral Comments
[2018-02-28 22:00] VITALS: BP 128/74; PULSE 77; RESP 18; TEMP 36.4; O2SAT 94
[2018-03-01] MEDS: oxyCODONE 5 MG Tablet 10 MG PO ×6 (00:05→21:54)
--- NOTE | 2018-03-01 04:04 | NURSING ---
Pt provided oxyir for 04:00 and pain still at 8/10 with burning pain, per pt. Will continue to monitor.
[2018-03-01] MEDS: Acetaminophen 325 MG Tablet 650 MG PO ×5 (05:37→23:21)
[2018-03-01 07:40] VITALS: BP 123/65; PULSE 87; RESP 18; TEMP 36.5; O2SAT 96
[2018-03-01] MEDS: Pravastatin 80 MG Tablet PO (08:03)
[2018-03-01] MEDS: ARIPiprazole 10 MG Tablet 20 MG PO (08:03)
[2018-03-01] MEDS: NIFEdipine 30 MG Tablet PO (08:03)
[2018-03-01] MEDS: Aspirin 81 MG TAB.CHEW PO (08:03)
[2018-03-01] MEDS: lamoTRIgine 100 MG Tablet 200 MG PO (08:03)
[2018-03-01] MEDS: APIXABAN 5 MG TABLET PO ×2 (08:04→21:54)
[2018-03-01] MEDS: Pregabalin 25 MG Capsule PO (10:13)
[2018-03-01] MEDS: Senna/Docusate Sodium 1 Tablet 2 TABLET PO ×2 (10:13→21:54)
--- NOTE | 2018-03-01 10:21 | PCM.PN.NEU ---
Subjective: No issues overnight, patient care discussed with nursing staff. Complaints of burning pain at the stump. Per nursing staff, surgeon was contacted to see if patient can shower and per Geri (nursing), surgeon (Dr. Savage) has okayed for her to shower. Stump incision without any drainage, stump circumference being measured to check for swelling. - Physical Exam General: Alert HEENT: Normocephalic Neck: Supple Lungs: Clear to auscultation Cardiovascular: Normal S1, Normal S2 Abdomen: Bowel Sounds Present Extremities: No cyanosis Skin: No rashes Musculoskeletal: No Tenderness to Palpation of Joints or Extremities Neurological: Cranial nerves II-XII grossly intact, Neuro grossly intact, Motor Exam 5/5 strength throughout, Muscle tone normal, Sensory exam intact to light touch and pain, Coordination normal Psych/Mental Status: Normal Affect Vital Signs Temp Pulse Resp BP Pulse Ox 97.7 F L 87 18 123/65 H 96 03/01/18 07:40 03/01/18 07:40 03/01/18 07:40 03/01/18 07:40 03/01/18 07:40 Oxygen Delivery Method Room Air Weight: 79.7 kg Body Mass Index (BMI) 28.5 Intake and Output for Last 24 Hours 02/27/18 02/28/18 03/01/18 23:59 23:59 23:59 Intake Total 1120 / 1120 1080 / 1080 240 / 240 Balance 1120 / 1120 1080 / 1080 240 / 240 Medical Necessity - Tobacco Use Smoking Status: Former smoker Tobacco Use: Non-smoker Assessment/Plan 52 yr CF with PMH HTN, HLD, Lupus anticoagulant, PVD s/p angioplasty and bypass, Bipolar disorder, 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 Savage on 02/18/18, [facility] with [facility] s/p Left BKA amputation, for > 3 hrs therapy, with a goal of returning back to her home at or near her prior level of functional independence Plan -PT for gait stability -OT for ADLs -Analgesics as needed. On Oxy IR 10 mg PO q 4 hrly. Increase Duragesic patch to 25 mcg daily and on Oxy IR. Tylenol as needed. Will increase Lyrica to 75 mg PO BID. -Left BKA- stable, no incision site redness or infection. measure circumference to check for swelling. -HTN-BP stable on Nifedipine -HLD- on Pravastatin -Lupus anticoagulant-on Eliquis -PVD- on ASA, Left BKA, no redness or infection of incision/suture site -Bipolar d/o- stable, on Aripiprazole and Lamictal 200 mg PO once daily. -GI/DVT prophylaxis -Follow up with Surgeon Dr. Savage on 03/22/18 and follow up for suture removal on 03/22/18. -Fall precautions -Further medical management per hospitalist recommendations.
--- NOTE | 2018-03-01 12:00 | NURSING ---
Dr. Savage ok'd for patient to shower and get stump wet, dr rodrigues aware. Pain described as burning to stump (end) and dr rodrigues gave new orders.
[2018-03-01] MEDS: fentaNYL 25 MCG Patch TRANSDERM. (13:45)
[2018-03-01] MEDS: Pregabalin 50 MG Capsule PO (13:45)
[2018-03-01 19:10] VITALS: BP 127/63; PULSE 95; RESP 16; TEMP 36.4; O2SAT 98
[2018-03-01] MEDS: Pregabalin 75 MG Capsule PO (21:54)
[2018-03-02] MEDS: oxyCODONE 5 MG Tablet 10 MG PO ×5 (02:57→20:18)
[2018-03-02] MEDS: Acetaminophen 325 MG Tablet 650 MG PO ×5 (05:45→21:55)
--- NOTE | 2018-03-02 08:33 | PCM.PN.HOSP ---
Subjective: Seen participating in physical therapy Objective: GENERAL: cooperative HEENT: Clear conjunctiva, NECK; supple, normal thyroid, CHEST: Clear to auscultation bilaterally, HEART: Regular S1 S2, no audible murmurs ABDOMEN: soft, non-tender, normoactive bowel sounds, RECTAL: deferred EXTREMITIES: Left BKA CCO: Awake; no lateralizing signs. SKIN: No Rash Vitals/I&O's: Vital Signs Temp Pulse Resp BP Pulse Ox 97.6 F L 95 16 127/63 H 98 03/01/18 19:10 03/01/18 19:10 03/01/18 19:10 03/01/18 19:10 03/01/18 19:10 Oxygen Delivery Method Room Air Weight: 79.7 kg Body Mass Index (BMI) 28.5 Intake and Output for Last 24 Hours 02/28/18 03/01/18 03/02/18 23:59 23:59 23:59 Intake Total 1080 / 1080 240 / 240 Balance 1080 / 1080 240 / 240 Current Medications Acetaminophen (Tylenol) 650 mg PO Q4HWA [facility] Last Admin: 03/02/18 05:45 Dose: 650 mg Apixaban (Eliquis) 5 mg PO BID [facility] Last Admin: 03/01/18 21:54 Dose: 5 mg Aripiprazole (Abilify) 20 mg PO DAILY [facility] Last Admin: 03/01/18 08:03 Dose: 20 mg Aspirin (Aspirin, Baby) 81 mg PO DAILY@0800 [facility] Last Admin: 03/01/18 08:03 Dose: 81 mg Bisacodyl (Dulcolax) 10 mg RECTAL .PRN X 1 PRN PRN Reason: Constipation Cholecalciferol (Vitamin D) 5,000 unit PO DAILY [facility] Last Admin: 03/01/18 08:03 Dose: 5,000 unit Fentanyl (Duragesic Patch) 25 mcg TRANSDERM. Q3D [facility] Last Admin: 03/01/18 13:45 Dose: 25 mcg Lamotrigine (Lamictal) 200 mg PO DAILY [facility] Last Admin: 03/01/18 08:03 Dose: 200 mg Magnesium Hydroxide (Milk Of Magnesia) 30 ml PO .PRN X 1 PRN PRN Reason: Constipation Nifedipine (Procardia Xl) 30 mg PO DAILY [facility] Last Admin: 03/01/18 08:03 Dose: 30 mg Oxycodone HCl (Oxyir) 10 mg PO Q4H PRN PRN Reason: PAIN Last Admin: 03/02/18 07:09 Dose: 10 mg Polyethylene Glycol (Miralax) 17 gm PO DAILY PRN PRN Reason: Constipation Pravastatin Sodium (Pravachol) 80 mg PO DAILY [facility] Last Admin: 03/01/18 08:03 Dose: 80 mg Pregabalin (Lyrica) 75 mg PO BID [facility] Last Admin: 03/01/18 21:54 Dose: 75 mg Senna/Docusate Sodium (Senokot-S, Mandy-Colace) 2 tablet PO BID [facility] Last Admin: 03/01/18 21:54 Dose: 2 tablet Medical Necessity - Tobacco Use Smoking Status: Former smoker Tobacco Use: Non-smoker Assessment/Plan Patient is a 52-year-old female with history of peripheral vascular disease who underwent left below-knee amputation and left femoropopliteal bypass at [facility] subsequently transferred to the inpatient rehab unit for subsequent management 1. Peripheral arterial disease status post left femoropopliteal bypass with subsequent left BKA performed on 02/18/2018 2. Lupus anticoagulant patient is on systemic anticoagulation with Eliquis 3. Bipolar disorder controlled on Abilify and Lamictal 4. DVT prophylaxis already on systemic anticoagulation 5. Dyslipidemia-patient is on statin therapy, continued at home dose Active Medications Acetaminophen (Tylenol) 650 mg PO Q4HWA [facility] Last Admin: 02/28/18 13:30 Dose: 650 mg Apixaban (Eliquis) 5 mg PO BID [facility] Last Admin: 02/28/18 07:48 Dose: 5 mg Aripiprazole (Abilify) 20 mg PO DAILY [facility] Last Admin: 02/28/18 07:48 Dose: 20 mg Aspirin (Aspirin, Baby) 81 mg PO DAILY@0800 [facility] Last Admin: 02/28/18 07:48 Dose: 81 mg Bisacodyl (Dulcolax) 10 mg RECTAL .PRN X 1 PRN PRN Reason: Constipation Cholecalciferol (Vitamin D) 5,000 unit PO DAILY [facility] Last Admin: 02/28/18 07:48 Dose: 5,000 unit Fentanyl (Duragesic Patch) 12 mcg TRANSDERM. Q3D [facility] Last Admin: 02/28/18 10:41 Dose: 12 mcg Lamotrigine (Lamictal) 200 mg PO DAILY [facility] Last Admin: 02/28/18 07:48 Dose: 200 mg Magnesium Hydroxide (Milk Of Magnesia) 30 ml PO .PRN X 1 PRN PRN Reason: Constipation Nifedipine (Procardia Xl) 30 mg PO DAILY [facility] Last Admin: 02/28/18 07:48 Dose: 30 mg Oxycodone HCl (Oxyir) 10 mg PO Q4H [facility] Last Admin: 02/28/18 11:52 Dose: 10 mg Polyethylene Glycol (Miralax) 17 gm PO DAILY PRN PRN Reason: Constipation Pravastatin Sodium (Pravachol) 80 mg PO DAILY [facility] Last Admin: 02/28/18 07:48 Dose: 80 mg Pregabalin (Lyrica) 25 mg PO BID [facility] Last Admin: 02/28/18 10:44 Dose: 25 mg Senna/Docusate Sodium (Senokot-S, Mandy-Colace) 2 tablet PO BID [facility] Last Admin: 02/28/18 07:52 Dose: 1 tablet Code Visit Inpatient E&M: 37790 Subs Hosp L2
[2018-03-02 10:00] VITALS: BP 133/82; PULSE 89; RESP 16; TEMP 36.6; O2SAT 99
--- NOTE | 2018-03-02 11:21 | PN.NEURO_ITS ---
Subjective: No issues overnight. Patient care discussed with nursing staff. - Physical Exam General: Alert HEENT: Normocephalic Neck: Supple Lungs: Clear to auscultation Cardiovascular: Normal S1, Normal S2 Abdomen: Bowel Sounds Present Extremities: No cyanosis Skin: No rashes Neurological: Cranial nerves II-XII grossly intact, Deep Tendon Reflexes 2+/4 and Symmetrical, Neuro grossly intact, Motor Exam 5/5 strength throughout, Muscle tone normal, Sensory exam intact to light touch and pain, Coordination normal Psych/Mental Status: Normal Affect Vital Signs Temp Pulse Resp BP Pulse Ox 97.8 F 89 16 133/82 H 99 03/02/18 10:00 03/02/18 10:00 03/02/18 10:00 03/02/18 10:00 03/02/18 10:00 Oxygen Delivery Method Room Air Weight: 78.2 kg Body Mass Index (BMI) 28.5 Intake and Output for Last 24 Hours 02/28/18 03/01/18 03/02/18 23:59 23:59 23:59 Intake Total 1080 / 1080 240 / 240 240 / 240 Balance 1080 / 1080 240 / 240 240 / 240 Medical Necessity - Tobacco Use Smoking Status: Former smoker Tobacco Use: Non-smoker Assessment/Plan 52 yr CF with PMH HTN, HLD, Lupus anticoagulant, PVD s/p angioplasty and bypass , Bipolar disorder, 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 Savage on 02/18/18, admitted to [facility] with debility s/p Left BKA amputation, for > 3 hrs therapy, with a goal of returning back to her home at or near her prior level of functional independence Plan -PT for gait stability -OT for ADLs -Analgesics as needed. Duragesic patch 25 mcg daily and on Oxy IR PRN. Tylenol as needed. On Lyrica 75 mg PO BID. -Left BKA- stable, no incision site redness or infection. measure circumference to check for swelling. -HTN-BP stable on Nifedipine -HLD- on Pravastatin -Lupus anticoagulant-on Eliquis -PVD- on ASA, Left BKA, no redness or infection of incision/suture site -Bipolar d/o- stable, on Aripiprazole and Lamictal 200 mg PO once daily. -GI/DVT prophylaxis -Follow up with Surgeon Dr. Savage on 03/22/18 and follow up for suture removal on 03/22/18. -Fall precautions -Further medical management per hospitalist recommendations.
[2018-03-02] MEDS: APIXABAN 5 MG TABLET PO ×2 (11:45→21:57)
[2018-03-02] MEDS: Pregabalin 75 MG Capsule PO ×2 (11:45→21:56)
[2018-03-02] MEDS: lamoTRIgine 100 MG Tablet 200 MG PO (11:45)
[2018-03-02] MEDS: Pravastatin 80 MG Tablet PO (11:46)
[2018-03-02] MEDS: NIFEdipine 30 MG Tablet PO (11:46)
[2018-03-02] MEDS: Senna/Docusate Sodium 1 Tablet 2 TABLET PO ×2 (11:46→21:57)
[2018-03-02] MEDS: Aspirin 81 MG TAB.CHEW PO (11:46)
[2018-03-02] MEDS: ARIPiprazole 10 MG Tablet 20 MG PO (11:46)
[2018-03-02 20:21] VITALS: BP 123/75; PULSE 86; RESP 16; TEMP 36.8; O2SAT 99
[2018-03-03] MEDS: oxyCODONE 5 MG Tablet 10 MG PO ×6 (00:19→21:24)
[2018-03-03] MEDS: Aspirin 81 MG TAB.CHEW PO (08:37)
[2018-03-03] MEDS: Acetaminophen 325 MG Tablet 650 MG PO ×5 (08:37→23:24)
[2018-03-03 09:17] VITALS: BP 131/72; PULSE 93; RESP 18; TEMP 36.5; O2SAT 96
[2018-03-03] MEDS: Pregabalin 75 MG Capsule PO ×2 (11:14→21:39)
[2018-03-03] MEDS: ARIPiprazole 10 MG Tablet 20 MG PO (11:15)
[2018-03-03] MEDS: Pravastatin 80 MG Tablet PO (11:15)
[2018-03-03] MEDS: NIFEdipine 30 MG Tablet PO (11:15)
[2018-03-03] MEDS: APIXABAN 5 MG TABLET PO ×2 (11:15→21:39)
[2018-03-03] MEDS: Senna/Docusate Sodium 1 Tablet 2 TABLET PO ×2 (11:15→21:39)
[2018-03-03] MEDS: lamoTRIgine 100 MG Tablet 200 MG PO (11:19)
--- NOTE | 2018-03-03 12:48 | PN.NEURO_ITS ---
Subjective: No Issues overnight. Patient care discussed with nursing staff. - Physical Exam General: Alert HEENT: Normocephalic Neck: Supple Lungs: Clear to auscultation Cardiovascular: Normal S1, Normal S2 Abdomen: Bowel Sounds Present Extremities: No cyanosis Skin: No rashes Musculoskeletal: No Tenderness to Palpation of Joints or Extremities Neurological: Cranial nerves II-XII grossly intact, Deep Tendon Reflexes 2+/4 and Symmetrical, Neuro grossly intact, Motor Exam 5/5 strength throughout, Muscle tone normal, Sensory exam intact to light touch and pain, Coordination normal Psych/Mental Status: Normal Affect Vital Signs Temp Pulse Resp BP Pulse Ox 97.7 F L 93 18 131/72 H 96 03/03/18 09:17 03/03/18 09:17 03/03/18 09:17 03/03/18 09:17 03/03/18 09:17 Oxygen Delivery Method Room Air Weight: 78.2 kg Body Mass Index (BMI) 28.5 Intake and Output for Last 24 Hours 03/01/18 03/02/18 03/03/18 23:59 23:59 23:59 Intake Total 240 / 240 920 / 920 240 / 240 Balance 240 / 240 920 / 920 240 / 240 Medical Necessity - Tobacco Use Smoking Status: Former smoker Tobacco Use: Non-smoker Assessment/Plan 52 yr CF with PMH HTN, HLD, Lupus anticoagulant, PVD s/p angioplasty and bypass , Bipolar disorder, 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 Savage on 02/18/18, admitted to [facility] with debility s/p Left BKA amputation, for > 3 hrs therapy, with a goal of returning back to her home at or near her prior level of functional independence Plan -PT for gait stability -OT for ADLs -Analgesics as needed. Duragesic patch 25 mcg daily and on Oxy IR PRN. Tylenol as needed. On Lyrica 75 mg PO BID. -Left BKA- stable, no incision site redness or infection. measure circumference to check for swelling. -HTN-BP stable on Nifedipine -HLD- on Pravastatin -Lupus anticoagulant-on Eliquis -PVD- on ASA, Left BKA, no redness or infection of incision/suture site -Bipolar d/o- stable, on Aripiprazole and Lamictal 200 mg PO once daily. -GI/DVT prophylaxis -Follow up with Surgeon Dr. Savage on 03/22/18 and follow up for suture removal on 03/22/18. -Fall precautions -Further medical management per hospitalist recommendations.
[2018-03-03 18:50] VITALS: BP 113/74; PULSE 88; RESP 18; TEMP 36.5; O2SAT 97
[2018-03-04] MEDS: oxyCODONE 5 MG Tablet 10 MG PO ×5 (02:38→19:56)
[2018-03-04] MEDS: Acetaminophen 325 MG Tablet 650 MG PO ×4 (05:51→17:52)
[2018-03-04 07:20] VITALS: BP 113/70; PULSE 94; RESP 18; TEMP 36.7; O2SAT 95
[2018-03-04] MEDS: lamoTRIgine 100 MG Tablet 200 MG PO (07:24)
[2018-03-04] MEDS: Aspirin 81 MG TAB.CHEW PO (07:24)
[2018-03-04] MEDS: Senna/Docusate Sodium 1 Tablet 2 TABLET PO ×2 (07:24→19:57)
[2018-03-04] MEDS: APIXABAN 5 MG TABLET PO ×2 (07:25→19:57)
[2018-03-04] MEDS: NIFEdipine 30 MG Tablet PO (07:25)
[2018-03-04] MEDS: Pravastatin 80 MG Tablet PO (07:25)
[2018-03-04] MEDS: Pregabalin 75 MG Capsule PO ×2 (07:25→19:57)
[2018-03-04] MEDS: ARIPiprazole 10 MG Tablet 20 MG PO (07:25)
--- NOTE | 2018-03-04 11:37 | PCM.PN.HOSP ---
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 SKIN: No Rash Vitals/I&O's: Vital Signs Temp Pulse Resp BP Pulse Ox 98.1 F 94 18 113/70 95 03/04/18 07:20 03/04/18 07:20 03/04/18 07:20 03/04/18 07:20 03/04/18 07:20 Oxygen Delivery Method Room Air Weight: 78.2 kg Body Mass Index (BMI) 28.5 Intake and Output for Last 24 Hours 03/02/18 03/03/18 03/04/18 23:59 23:59 23:59 Intake Total 920 / 920 560 / 560 240 / 240 Balance 920 / 920 560 / 560 240 / 240 Current Medications Acetaminophen (Tylenol) 650 mg PO Q4HWA [facility] Last Admin: 03/04/18 09:48 Dose: 650 mg Apixaban (Eliquis) 5 mg PO BID [facility] Last Admin: 03/04/18 07:25 Dose: 5 mg Aripiprazole (Abilify) 20 mg PO DAILY [facility] Last Admin: 03/04/18 07:25 Dose: 20 mg Aspirin (Aspirin, Baby) 81 mg PO DAILY@0800 [facility] Last Admin: 03/04/18 07:24 Dose: 81 mg Bisacodyl (Dulcolax) 10 mg RECTAL .PRN X 1 PRN PRN Reason: Constipation Cholecalciferol (Vitamin D) 5,000 unit PO DAILY [facility] Last Admin: 03/04/18 07:24 Dose: 5,000 unit Fentanyl (Duragesic Patch) 25 mcg TRANSDERM. Q3D [facility] Last Admin: 03/01/18 13:45 Dose: 25 mcg Lamotrigine (Lamictal) 200 mg PO DAILY [facility] Last Admin: 03/04/18 07:24 Dose: 200 mg Magnesium Hydroxide (Milk Of Magnesia) 30 ml PO .PRN X 1 PRN PRN Reason: Constipation Nifedipine (Procardia Xl) 30 mg PO DAILY [facility] Last Admin: 03/04/18 07:25 Dose: 30 mg Oxycodone HCl (Oxyir) 10 mg PO Q4H PRN PRN Reason: PAIN Last Admin: 03/04/18 07:24 Dose: 10 mg Polyethylene Glycol (Miralax) 17 gm PO DAILY PRN PRN Reason: Constipation Pravastatin Sodium (Pravachol) 80 mg PO DAILY [facility] Last Admin: 03/04/18 07:25 Dose: 80 mg Pregabalin (Lyrica) 75 mg PO BID [facility] Last Admin: 03/04/18 07:25 Dose: 75 mg Senna/Docusate Sodium (Senokot-S, Mandy-Colace) 2 tablet PO BID [facility] Last Admin: 03/04/18 07:24 Dose: 2 tablet Medical Necessity - Tobacco Use Smoking Status: Former smoker Tobacco Use: Non-smoker Assessment/Plan Patient is a 52-year-old female with history of peripheral vascular disease who underwent left below-knee amputation and left femoropopliteal bypass at [facility] subsequently transferred to the inpatient rehab unit for subsequent management 1. Peripheral arterial disease status post left femoropopliteal bypass with subsequent left BKA performed on 02/18/2018 2. Lupus anticoagulant patient is on systemic anticoagulation with Eliquis 3. Bipolar disorder controlled on Abilify and Lamictal 4. DVT prophylaxis already on systemic anticoagulation 5. Dyslipidemia-patient is on statin therapy, continued at home dose Active Medications Acetaminophen (Tylenol) 650 mg PO Q4HWA [facility] Last Admin: 02/28/18 13:30 Dose: 650 mg Apixaban (Eliquis) 5 mg PO BID [facility] Last Admin: 02/28/18 07:48 Dose: 5 mg Aripiprazole (Abilify) 20 mg PO DAILY [facility] Last Admin: 02/28/18 07:48 Dose: 20 mg Aspirin (Aspirin, Baby) 81 mg PO DAILY@0800 [facility] Last Admin: 02/28/18 07:48 Dose: 81 mg Bisacodyl (Dulcolax) 10 mg RECTAL .PRN X 1 PRN PRN Reason: Constipation Cholecalciferol (Vitamin D) 5,000 unit PO DAILY [facility] Last Admin: 02/28/18 07:48 Dose: 5,000 unit Fentanyl (Duragesic Patch) 12 mcg TRANSDERM. Q3D [facility] Last Admin: 02/28/18 10:41 Dose: 12 mcg Lamotrigine (Lamictal) 200 mg PO DAILY [facility] Last Admin: 02/28/18 07:48 Dose: 200 mg Magnesium Hydroxide (Milk Of Magnesia) 30 ml PO .PRN X 1 PRN PRN Reason: Constipation Nifedipine (Procardia Xl) 30 mg PO DAILY [facility] Last Admin: 02/28/18 07:48 Dose: 30 mg Oxycodone HCl (Oxyir) 10 mg PO Q4H [facility] Last Admin: 02/28/18 11:52 Dose: 10 mg Polyethylene Glycol (Miralax) 17 gm PO DAILY PRN PRN Reason: Constipation Pravastatin Sodium (Pravachol) 80 mg PO DAILY [facility] Last Admin: 02/28/18 07:48 Dose: 80 mg Pregabalin (Lyrica) 25 mg PO BID [facility] Last Admin: 02/28/18 10:44 Dose: 25 mg Senna/Docusate Sodium (Senokot-S, Mandy-Colace) 2 tablet PO BID [facility] Last Admin: 02/28/18 07:52 Dose: 1 tablet Code Visit Inpatient E&M: 60980 Subs Hosp L2
--- NOTE | 2018-03-04 12:04 | PCM.PN.NEU ---
Subjective: No issues overnight. Patient care discussed with nursing staff. - Physical Exam General: Alert HEENT: Normocephalic Neck: Supple Lungs: Clear to auscultation Cardiovascular: Normal S1, Normal S2 Abdomen: Bowel Sounds Present Extremities: No cyanosis Musculoskeletal: No Tenderness to Palpation of Joints or Extremities Neurological: Cranial nerves II-XII grossly intact, Deep Tendon Reflexes 2+/4 and Symmetrical, Neuro grossly intact, Motor Exam 5/5 strength throughout, Muscle tone normal, Sensory exam intact to light touch and pain, Coordination normal Psych/Mental Status: Normal Affect Vital Signs Temp Pulse Resp BP Pulse Ox 98.1 F 94 18 113/70 95 03/04/18 07:20 03/04/18 07:20 03/04/18 07:20 03/04/18 07:20 03/04/18 07:20 Oxygen Delivery Method Room Air Weight: 78.2 kg Body Mass Index (BMI) 28.5 Intake and Output for Last 24 Hours 03/02/18 03/03/18 03/04/18 23:59 23:59 23:59 Intake Total 920 / 920 560 / 560 240 / 240 Balance 920 / 920 560 / 560 240 / 240 Medical Necessity - Tobacco Use Smoking Status: Former smoker Tobacco Use: Non-smoker Assessment/Plan 52 yr CF with PMH HTN, HLD, Lupus anticoagulant, PVD s/p angioplasty and bypass, Bipolar disorder, 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 Savage on 02/18/18, admitted to [facility] with debility s/p Left BKA amputation, for > 3 hrs therapy, with a goal of returning back to her home at or near her prior level of functional independence Plan -PT for gait stability -OT for ADLs -Analgesics as needed. Duragesic patch 25 mcg daily and on Oxy IR PRN. Tylenol as needed. On Lyrica 75 mg PO BID. -Left BKA- stable, no incision site redness or infection. measure circumference to check for swelling. -HTN-BP stable on Nifedipine -HLD- on Pravastatin -Lupus anticoagulant-on Eliquis -PVD- on ASA, Left BKA, no redness or infection of incision/suture site -Bipolar d/o- stable, on Aripiprazole and Lamictal 200 mg PO once daily. -GI/DVT prophylaxis -Follow up with Surgeon Dr. Savage on 03/22/18 and follow up for suture removal on 03/22/18. -Fall precautions -Further medical management per hospitalist recommendations.
[2018-03-04] MEDS: fentaNYL 25 MCG Patch TRANSDERM. (13:29)
[2018-03-04 18:38] VITALS: BP 141/80; PULSE 68; RESP 17; TEMP 36.9; O2SAT 99
[2018-03-04 19:49] VITALS: BP 141/80; PULSE 68; RESP 17; TEMP 36.9; O2SAT 99
--- NOTE | 2018-03-05 00:20 | NURSING ---
Circumference of stump ws 39cm at hs on 03/04/18
[2018-03-05] MEDS: oxyCODONE 5 MG Tablet 10 MG PO ×6 (00:24→20:46)
[2018-03-05] MEDS: Acetaminophen 325 MG Tablet 650 MG PO ×6 (00:28→22:09)
[2018-03-05 07:23] VITALS: BP 124/81; PULSE 92; RESP 17; TEMP 36.7; O2SAT 98
[2018-03-05] MEDS: Senna/Docusate Sodium 1 Tablet 2 TABLET PO ×2 (07:40→20:47)
[2018-03-05] MEDS: Pravastatin 80 MG Tablet PO (07:40)
[2018-03-05] MEDS: lamoTRIgine 100 MG Tablet 200 MG PO (07:40)
[2018-03-05] MEDS: NIFEdipine 30 MG Tablet PO (07:40)
[2018-03-05] MEDS: ARIPiprazole 10 MG Tablet 20 MG PO (07:41)
[2018-03-05] MEDS: Aspirin 81 MG TAB.CHEW PO (07:41)
[2018-03-05] MEDS: APIXABAN 5 MG TABLET PO ×2 (07:41→20:47)
[2018-03-05] MEDS: Pregabalin 75 MG Capsule PO ×2 (07:45→20:50)
[2018-03-05 20:31] VITALS: BP 119/74; PULSE 89; RESP 17; TEMP 37; O2SAT 97
--- NOTE | 2018-03-05 23:49 | NURSING ---
Stump circumferece at HS: 38.25cm
[2018-03-06] MEDS: oxyCODONE 5 MG Tablet 10 MG PO ×5 (02:45→20:19)
[2018-03-06] MEDS: Acetaminophen 325 MG Tablet 650 MG PO ×5 (06:17→22:14)
[2018-03-06] MEDS: Pravastatin 80 MG Tablet PO (07:24)
[2018-03-06] MEDS: ARIPiprazole 10 MG Tablet 20 MG PO (07:24)
[2018-03-06] MEDS: Senna/Docusate Sodium 1 Tablet 2 TABLET PO ×2 (07:24→20:28)
[2018-03-06] MEDS: lamoTRIgine 100 MG Tablet 200 MG PO (07:24)
[2018-03-06] MEDS: Pregabalin 75 MG Capsule PO ×2 (07:24→20:28)
[2018-03-06] MEDS: APIXABAN 5 MG TABLET PO ×2 (07:24→20:28)
[2018-03-06] MEDS: Aspirin 81 MG TAB.CHEW PO (07:25)
[2018-03-06] MEDS: NIFEdipine 30 MG Tablet PO (07:28)
--- NOTE | 2018-03-06 07:29 | PCM.PN.HOSP ---
Subjective: Patient is seen in routine pain in his thumb 5 out of 10 much improved done the day prior. 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 SKIN: No Rash Vitals/I&O's: Vital Signs Temp Pulse Resp BP Pulse Ox 98.6 F 89 17 119/74 97 03/05/18 20:31 03/05/18 20:31 03/05/18 20:31 03/05/18 20:31 03/05/18 20:31 Oxygen Delivery Method Room Air Weight: 78.2 kg Body Mass Index (BMI) 28.5 Intake and Output for Last 24 Hours 03/04/18 03/05/18 03/06/18 23:59 23:59 23:59 Intake Total 720 / 720 560 / 560 Balance 720 / 720 560 / 560 Current Medications Acetaminophen (Tylenol) 650 mg PO Q4HWA [facility] Last Admin: 03/06/18 06:17 Dose: 650 mg Apixaban (Eliquis) 5 mg PO BID [facility] Last Admin: 03/06/18 07:24 Dose: 5 mg Aripiprazole (Abilify) 20 mg PO DAILY [facility] Last Admin: 03/06/18 07:24 Dose: 20 mg Aspirin (Aspirin, Baby) 81 mg PO DAILY@0800 [facility] Last Admin: 03/06/18 07:25 Dose: 81 mg Bisacodyl (Dulcolax) 10 mg RECTAL .PRN X 1 PRN PRN Reason: Constipation Cholecalciferol (Vitamin D) 5,000 unit PO DAILY [facility] Last Admin: 03/06/18 07:24 Dose: 5,000 unit Fentanyl (Duragesic Patch) 25 mcg TRANSDERM. Q3D [facility] Last Admin: 03/04/18 13:29 Dose: 25 mcg Lamotrigine (Lamictal) 200 mg PO DAILY [facility] Last Admin: 03/06/18 07:24 Dose: 200 mg Magnesium Hydroxide (Milk Of Magnesia) 30 ml PO .PRN X 1 PRN PRN Reason: Constipation Nifedipine (Procardia Xl) 30 mg PO DAILY [facility] Last Admin: 03/06/18 07:28 Dose: 30 mg Oxycodone HCl (Oxyir) 10 mg PO Q4H PRN PRN Reason: PAIN Last Admin: 03/06/18 07:23 Dose: 10 mg Polyethylene Glycol (Miralax) 17 gm PO DAILY PRN PRN Reason: Constipation Pravastatin Sodium (Pravachol) 80 mg PO DAILY [facility] Last Admin: 03/06/18 07:24 Dose: 80 mg Pregabalin (Lyrica) 75 mg PO BID [facility] Last Admin: 03/06/18 07:24 Dose: 75 mg Senna/Docusate Sodium (Senokot-S, Mandy-Colace) 2 tablet PO BID [facility] Last Admin: 03/06/18 07:24 Dose: 2 tablet Medical Necessity - Tobacco Use Smoking Status: Former smoker Tobacco Use: Non-smoker Assessment/Plan Patient is a 52-year-old female with history of peripheral vascular disease who underwent left below-knee amputation and left femoropopliteal bypass at [facility] subsequently transferred to the inpatient rehab unit for subsequent management 1. Peripheral arterial disease status post left femoropopliteal bypass with subsequent left BKA performed on 02/18/2018 2. Lupus anticoagulant patient is on systemic anticoagulation with Eliquis 3. Bipolar disorder controlled on Abilify and Lamictal 4. DVT prophylaxis already on systemic anticoagulation 5. Dyslipidemia-patient is on statin therapy, continued at home dose Code Visit Inpatient E&M: 19815 [facility] Hosp L2
[2018-03-06 08:00] VITALS: BP 138/86; PULSE 92; RESP 16; TEMP 36.6; O2SAT 99
--- NOTE | 2018-03-06 10:56 | NURSING ---
patient ambulated > 150 ft with walker x supervision and wheeled self > 150 ft to dining area x supervision.
--- NOTE | 2018-03-06 12:33 | NURSING ---
patient eating in dining area for lunch and ambulated to dining area from room x super vision with walker.
--- NOTE | 2018-03-06 13:21 | NURSING ---
patient worked on nu step for 13 minutes and ambulated back to room. patient resting in bed.
[2018-03-06 20:47] VITALS: BP 130/74; PULSE 67; RESP 18; TEMP 36.7; O2SAT 97
[2018-03-07] MEDS: oxyCODONE 5 MG Tablet 10 MG PO ×6 (00:48→21:31)
--- NOTE | 2018-03-07 05:13 | NURSING ---
Reviewed and agree with LPNs fims and handoff
[2018-03-07] MEDS: Acetaminophen 325 MG Tablet 650 MG PO ×5 (06:42→22:54)
[2018-03-07 08:00] VITALS: BP 103/67; PULSE 92; RESP 18; TEMP 36.7; O2SAT 100
[2018-03-07] MEDS: lamoTRIgine 100 MG Tablet 200 MG PO (08:34)
[2018-03-07] MEDS: Aspirin 81 MG TAB.CHEW PO (08:34)
[2018-03-07] MEDS: NIFEdipine 30 MG Tablet PO (08:35)
[2018-03-07] MEDS: ARIPiprazole 10 MG Tablet 20 MG PO (08:35)
[2018-03-07] MEDS: APIXABAN 5 MG TABLET PO ×2 (08:35→21:31)
[2018-03-07] MEDS: Pravastatin 80 MG Tablet PO (08:37)
[2018-03-07] MEDS: Pregabalin 75 MG Capsule PO ×2 (09:06→21:35)
--- NOTE | 2018-03-07 11:04 | PCM.DC ---
- Discharge Diagnoses Current Active Problems: debility s/p left bka Reason(s) for Visit for Discharge Instructions: debility s/p left bka You will use the following diet at home:: No restrictions Your food should be the consistency of: Regular Your liquids should be the consistency of: Regular/Thin Discharge Activity: Return to Normal Activity, May Not Drive, Use Walker Weight Bearing Status: Weight bearing as tolerated Lifting Restrictions: 10 lbs Call your doctor if your incision/area has: Continuous Slow Oozing, Sudden Increased Bleeding, Increased Pain/ Swelling, Increased Redness, Foul Smelling Discharge, Swelling at the incision site Call your doctor if you observe: Fever of 101 or Higher, Coldness, Increased Pain, Numbness or Tingling, Change in Color Allergies/Adverse Reactions: Allergies bupropion HCl [From Wellbutrin] Allergy (Verified 04/19/14 06:26) Other gabapentin enacarbil [From Horizant] Allergy (Verified 04/19/14 06:26) Other Medications to take at Discharge Aripiprazole [Abilify] 20 mg PO DAILY 04/19/14 Cholecalciferol (Vitamin D3) [Vitamin D] 5,000 unit PO DAILY 04/19/14 Lamotrigine [Lamictal] 200 mg PO DAILY 04/19/14 Acetaminophen [Tylenol] 650 mg PO Q6H PRN PRN 02/22/18 Apixaban [Eliquis] 5 mg PO BID 02/22/18 Aspirin [Aspirin, Baby] 81 mg PO DAILY@0800 02/22/18 Nifedipine [Nifedipine ER] 30 mg PO DAILY 02/22/18 Polyethylene Glycol 3350 [Miralax] 17 gm PO DAILY PRN 02/22/18 Pravastatin [Pravachol] 80 mg PO DAILY 02/22/18 Oxycodone [Oxyir] 10 mg PO Q4H PRN 7 Days tab 03/07/18 Pregabalin [Lyrica] 75 mg PO BID 7 Days cap 03/07/18 Senna/Docusate Sodium [Senokot-S] 2 tablet PO BID tablet 03/07/18 fentaNYL patch [Duragesic patch] 25 mcg TRANSDERM. Q3D #2 patch 03/07/18 The following prescriptions were given: fentaNYL patch [Duragesic patch] 25 mcg TRANSDERM. Q3D #2 patch Oxycodone [Oxyir] 10 mg PO Q4H PRN 7 Days tab PRN Reason: Pain Pregabalin [Lyrica] 75 mg PO BID 7 Days cap Primary Care Physician: Kathryn Callaway MD [Primary Care Provider] - Test Results: Test results from this visit will be discussed in further detail at your follow-up appointment, if applicable. Please Follow Up With: Vilma Mendieta NP When: Wednesday Proposed Discharge Date: 03/08/18
--- NOTE | 2018-03-07 11:08 | DS.PCM_ITS ---
Rehab Discharge Summary DATE OF ADMISSION: 02/22/18 DATE OF DISCHARGE: 03/08/18 - Rehab Diagnosis Debility status post left below the knee amputation Discharge Diet: No Restrictions Discharge Activity: Return to Normal Activity, May Not Drive, Use Walker Weight Bearing Status: Weight bearing as tolerated Lifting Restrict to (lbs):: 10 Call your doctor if your incision/area has: Continuous Slow Oozing, Sudden Increased Bleeding, Increased Pain/ Swelling, Increased Redness, Foul Smelling Discharge, Swelling at the incision site Call your doctor if you observe: Fever of 101 or Higher, Coldness, Increased Pain, Numbness or Tingling, Change in Color Home Medications: Medications to take at Discharge Aripiprazole [Abilify] 20 mg PO DAILY 04/19/14 Cholecalciferol (Vitamin D3) [Vitamin D] 5,000 unit PO DAILY 04/19/14 Lamotrigine [Lamictal] 200 mg PO DAILY 04/19/14 Acetaminophen [Tylenol] 650 mg PO Q6H PRN PRN 02/22/18 Apixaban [Eliquis] 5 mg PO BID 02/22/18 Aspirin [Aspirin, Baby] 81 mg PO DAILY@0800 02/22/18 Nifedipine [Nifedipine ER] 30 mg PO DAILY 02/22/18 Polyethylene Glycol 3350 [Miralax] 17 gm PO DAILY PRN 02/22/18 Pravastatin [Pravachol] 80 mg PO DAILY 02/22/18 Oxycodone [Oxyir] 10 mg PO Q4H PRN 7 Days tab 03/07/18 Pregabalin [Lyrica] 75 mg PO BID 7 Days cap 03/07/18 Senna/Docusate Sodium [Senokot-S] 2 tablet PO BID tablet 03/07/18 fentaNYL patch [Duragesic patch] 25 mcg TRANSDERM. Q3D #2 patch 03/07/18 Following Prescrptions Were Given to Patient: fentaNYL patch [Duragesic patch] 25 mcg TRANSDERM. Q3D #2 patch Oxycodone [Oxyir] 10 mg PO Q4H PRN 7 Days tab PRN Reason: Pain Pregabalin [Lyrica] 75 mg PO BID 7 Days cap Primary Care Physician: Kathryn Callaway MD [Primary Care Provider] - Please Follow Up With: Vilma Mendieta NP When: Wednesday Minutes spent on discharge:: 45 Patient Condition:: Good Rehab Course per rehab H&P: The patient is a 52 year old F admitted to the rehab unit status post left below the knee amputation performed 02/18/18 at [facility]. Goal of rehab is zoroastrianism of prior level of functional independence. Her surgeon at [place] was Dr. Savage. Her postoperative course was unremarkable. She says that her peripheral vascular disease is on the basis of hypercoagulable state due to lupus anticoagulant as well as smoking. She quit smoking about 3 months ago. She lives alone in her own home with 3 steps up to the main floor but she will need to negotiate 13 stairs on a regular basis. She says her pain currently is not well controlled, she has used Lyrica in the past and tolerated it. She did not tolerate gabapentin in the past. She says at [place] she was given OxyContin 10 mg every 4 hours alternating with Tylenol which helped her pain she is willing to reinitiate Lyrica as well. Complaints. The patient's rehab course was uneventful. She did require increasing pain medications. She had a blister over her incision which drained and healed. Pain was controlled. She was discharged to home in good condition with instructions to follow-up with her surgeon. Meaningful Use Info Meaningful Use Diagnoses (Choose all that apply): None applicable
--- NOTE | 2018-03-07 12:00 | NURSING ---
Left above the stump but below the knee measures 38 cm around.
--- NOTE | 2018-03-07 13:20 | CASEMGMT ---
Team meeting held. Patient present as well as patient daughter. Patient requesting for discharge date to be set for 03/08/18. Team is agreeable to discharge date. Patient plans to discharge to home where patient family/friends will be staying with patient for a couple weeks to assist patient in adjusting to being at home again. Physical and occupational therapy as well as retirement are recommending for patient to continue with services within the home. Patient is agreeable to recommendation and also requesting for a home health aide to be set up within the home. Patient requesting for home health services to be set up through [facility]. Patient daughter plans to provide transportation home for patient at time of discharge. Patient reporting to have all needed durable medical equipment accept a 3-in-1 bedside commode. Patient requesting for script and then will set up 3-in-1 bedside commode if patient finds that it is something patient needs when patient returns home. Support given. [facility] This psychiatric social worker supervisor making referral for physical and occupational therapy as well as retirement and home health aide. Order faxed along with supportive clinical information. Order for 3-in-1 bedside commode placed with patient discharge information. Proposed discharge date: 03/08/18 PLAN: Discharge to home with home health services and family/friends for support. Maryann OLIVER, CEMETERY VAULT INSTALLER
[2018-03-07] MEDS: fentaNYL 25 MCG Patch TRANSDERM. (13:27)
[2018-03-07 22:00] VITALS: BP 130/86; PULSE 66; RESP 18; TEMP 36.5; O2SAT 96
[2018-03-08] MEDS: oxyCODONE 5 MG Tablet 10 MG PO ×3 (01:43→10:10)
[2018-03-08] MEDS: Acetaminophen 325 MG Tablet 650 MG PO ×2 (06:53→10:10)
[2018-03-08] MEDS: ARIPiprazole 10 MG Tablet 20 MG PO (09:34)
[2018-03-08] MEDS: APIXABAN 5 MG TABLET PO (09:34)
[2018-03-08] MEDS: lamoTRIgine 100 MG Tablet 200 MG PO (09:34)
[2018-03-08] MEDS: Aspirin 81 MG TAB.CHEW PO (09:34)
[2018-03-08] MEDS: Pregabalin 75 MG Capsule PO (09:35)
[2018-03-08] MEDS: Pravastatin 80 MG Tablet PO (09:36)
[2018-03-08] MEDS: NIFEdipine 30 MG Tablet PO (09:38)
[2018-03-08 10:00] VITALS: BP 114/60; PULSE 97; RESP 18; TEMP 36.5; O2SAT 95
[2018-03-08 11:20] VITALS: BP 114/60; PULSE 97; RESP 18; TEMP 36.5; O2SAT 95
--- NOTE | 2018-03-08 11:46 | NURSING ---
Patient given dc instruct and verbalized understanding, this nurse demonstrated wound care and patient demonstrated back.
== END 2018-03-08 11:25 | disposition home health service (06) | DRG 560 ==
PROVIDERS: Admitting Provider Psychiatry & Neurology Neurology; Family Provider Student in an Organized Health Care Education/Training Program; PCP Student in an Organized Health Care Education/Training Program; Visit Provider Family Medicine
DX: Z47.81 Encounter for orthopedic aftercare following surgical amputation (principal); D68.62 Lupus anticoagulant syndrome; Z89.512 Acquired absence of left leg below knee; I73.9 Peripheral vascular disease, unspecified; Z87.891 Personal history of nicotine dependence; F31.9 Bipolar disorder, unspecified; E78.5 Hyperlipidemia, unspecified
CPT/HCPCS: 36415; 80048; 85027; 97110; 97116; 97162; 97166; 97530; 97535; 97802

== ENCOUNTER 2018-05-18 10:45 | Outpatient (RCR) | payer MEDICARE, SELFPAY ==
[2018-05-11 08:57] VITALS: BP 123/73; PULSE 86; RESP 16; TEMP 36.7; BMI 28.2
--- NOTE | 2018-05-11 11:17 | PCM.WC.HP ---
(1) Non-healing surgical wound Status: Chronic Current Visit: Yes Code(s): T81.89XA - Other complications of procedures, not elsewhere classified, initial encounter Comment: Left BKA Stump. (2) Ulcer of left lower extremity with fat layer exposed Status: Chronic Current Visit: Yes Code(s): L97.922 - Non-pressure chronic ulcer of unspecified part of left lower leg with fat layer exposed Comment: Left BKA stump. (3) Status post below knee amputation of left lower extremity Status: Chronic Current Visit: Yes Code(s): Z89.512 - Acquired absence of left leg below knee (4) Peripheral vascular disease Status: Acute Current Visit: Yes Code(s): I73.9 - Peripheral vascular disease, unspecified History of Present Illness Chief Complaint: Left BKA non healing post surgical wound and Ulcer. History of Wound: Ms. Mendenhall is a 52yo with PMH as stated above who presented to the wound center for management of her Left stump wound/ulcer. She is status post amputattion in February however, in she noted increased wound draingae from the stump site and subsequent opening of the wound. She was seen at the [facility] and had two debridements and wound vac placement. She has also been on a course of antibiotics. She denies any significnat concerns or feeling of unwell at this time. Past Medical History Past Medical History: Chronic Problems Status post below knee amputation of left lower extremity (Chronic) Non-healing surgical wound (Chronic) Left BKA Stump. Ulcer of left lower extremity with fat layer exposed (Chronic) Left BKA stump. Allergies/Adverse Reactions: Allergies bupropion HCl [From Wellbutrin] Allergy (Verified 04/19/14 06:26) Other gabapentin enacarbil [From Horizant] Allergy (Verified 04/19/14 06:26) Other Home Medications: Ambulatory Orders Medication Instructions Recorded Aripiprazole [Abilify] 20 mg PO DAILY 04/19/14 Cholecalciferol (Vitamin D3) 5,000 unit PO DAILY 04/19/14 [Vitamin D] Lamotrigine [Lamictal] 200 mg PO DAILY 04/19/14 Acetaminophen [Tylenol] 650 mg PO Q6H PRN PRN 02/22/18 Apixaban [Eliquis] 5 mg PO BID 02/22/18 Aspirin [Aspirin, Baby] 81 mg PO DAILY@0800 02/22/18 Nifedipine [Nifedipine ER] 30 mg PO DAILY 02/22/18 Pravastatin [Pravachol] 80 mg PO DAILY 02/22/18 Smoking Status: Former smoker Review of Systems Constitutional: Denies: Anorexia, Chills, Fever Eyes: Denies: Blurred vision, Pain, Redness HEENT: Denies: Difficulty Swallowing Cardiovascular: Denies: Chest Pain, Chest Tightness Respiratory: Denies: Cough, Hemoptysis Gastrointestinal: Denies: Abdominal Pain, Hematemesis, Vomiting Skin: Denies: Dryness, Jaundice - Physical Exam Vital Signs Temp Pulse Resp BP 98.0 F 86 16 123/73 H 05/11/18 08:57 05/11/18 08:57 05/11/18 08:57 05/11/18 08:57 General: Alert, Oriented x3, Cooperative, No apparent distress HEENT: Atraumatic Oral: Moist Mucosa Neck: Supple Lungs: Normal air movement Cardiovascular: Regular rate, Regular Rhythm Abdomen: Soft, Non Tender Extremities: No cyanosis Skin: Ulcer/ Wound Wound Measurements and Assessment WC - Nurse 1 - General Ulcer Measurement Start: 05/11/18 08:20 Freq: Status: Active Protocol: Activity Type Activity Date Activity User E-Sign Co-Sign Detail Recorded Client Recorded Date Recorded By Document 05/11/18 08:57 DV [id number] 05/11/18 09:35 DV 05/11/18 08:57 Wound Center Nurse 1 [Ulcer Assessment] #2 Left LATERAL BKA -Combined with other wound No -Current Size (cm) - Length 1.4 -Current Size (cm) - Width 2.0 -Current Size (cm) - Depth 0.3 -Total Square Cm 2.80 -Photo Taken Yes -Epithelialization Small 1-33% -Tunneling No -Undermining/Tunneling No -Circular Undermining No -Classification - Thickness Full Thickness without Exposed Support Structure -Exudate Amt Small (1-33%) -Exudate Type Serosanguineous -Wound Margin Distinct, Outline Attached -Granulation Amt None Present (0 %) -Granulation Quality N/A -Slough/Fibrin Yes -Necrosis Amt Large (67-100%) -Necrotic Tissue Type Adherent Slough -Structure Exposed N/A -Texture (Mandy-wound Skin Appearance) Assessed Localized Edema Scarring -Moisture (Mandy-wound Skin Appearance Assessed ) Dry/Scaly -Color (Mandy-wound Skin Appearance) No Abnormality Assessed -Temperature (Mandy-wound Skin No Abnormality Appearance) (Pt Warm) -Tenderness on Palpation (Mandy-wound Yes Skin Appearance) -Ulcer Cleansing Rinsed/ Irrigated with Saline -Foul Odor after Cleansing No -Anesthetic Used 5% Lidocaine Gel #1 Left Medial BKA -Combined with other wound No -Current Size (cm) - Length 3.0 -Current Size (cm) - Width 5.0 -Current Size (cm) - Depth 0.4 -Total Square Cm 15.00 -Photo Taken Yes -Epithelialization Small 1-33% -Tunneling Yes -Tunneling Position (O'clock) 2 -Tunneling Distance (cm) 3.7 -Undermining/Tunneling Yes -Undermining/Tunneling Starts (O' 10 clock) -Undermining/Tunneling Ends (O'clock) 2 -Maximum Distance (cm) 0.5 -Circular Undermining No -Classification - Thickness Full Thickness without Exposed Support Structure -Exudate Amt Large (67-100%) -Exudate Type Serosanguineous -Wound Margin Distinct, Outline Attached -Granulation Amt Medium (34-66%) -Granulation Quality [place] Red -Slough/Fibrin Yes -Necrosis Amt Large (67-100%) -Necrotic Tissue Type Adherent Slough -Structure Exposed Fat Layer Exposed N/A -Texture (Mandy-wound Skin Appearance) Assessed Localized Edema Scarring -Moisture (Mandy-wound Skin Appearance Assessed ) Weeping -Color (Mandy-wound Skin Appearance) Assessed Erythema -Temperature (Mandy-wound Skin No Abnormality Appearance) (Pt Warm) -Tenderness on Palpation (Mandy-wound Yes Skin Appearance) -Ulcer Cleansing Wound Cleanser -Foul Odor after Cleansing No -Anesthetic Used 4% Lidocaine Solution [Edema Assessment] -Lower Limb Edema Present No WC - Nurse 2 - General Ulcer CM Notes Start: 05/11/18 08:20 Freq: Status: Active Protocol: Activity Type Activity Date Activity User E-Sign Co-Sign Detail Recorded Client Recorded Date Recorded By Document 05/11/18 09:44 MW [id number] 05/11/18 09:56 MW 05/11/18 09:44 Wound Center Nurse 2 [Procedure/Treatment] #2 Left LATERAL BKA -Time 09:44 -Correct Patient Yes -Correct Side, Site, Position Yes -Correct Procedure Yes -Procedure Performed Yes -Type of Procedure Debridement -Clinical Debridement Subcutaneous -Post Debridement Size (cm) - Length 0.8 -Post Debridement Size (cm) - Width 2.0 -Post Debridement Size (cm) - Depth 0.3 -Total Square Cm 1.60 -Wound/Ulcer Outcome Not Healed -Ulcer Cleansing Rinsed/ Irrigated with Saline -Foul Odor after Cleansing No -Bioengineered Tissue No -Bleeding Controlled with Pressure -Treatment Response Procedure Tolerated Well #1 Left Medial BKA -Time 09:44 -Correct Patient Yes -Correct Side, Site, Position Yes -Correct Procedure Yes -Procedure Performed Yes -Type of Procedure Debridement -Clinical Debridement Subcutaneous -Post Debridement Size (cm) - Length 2.8 -Post Debridement Size (cm) - Width 5.5 -Post Debridement Size (cm) - Depth 0.8 -Total Square Cm 15.40 -Wound/Ulcer Outcome Not Healed -Ulcer Cleansing Rinsed/ Irrigated with Saline -Foul Odor after Cleansing No -Bioengineered Tissue No -Bleeding Controlled with Pressure -Other TUNNEL @ 2 - 4. 0CM -Treatment Response Procedure Tolerated Well [See Physician Procedure note for Specifics] Pain Scale: 0-10 Numeric [Pain] -Is Patient Pain Free? Yes Musculoskeletal: No Muscle Wasting Neurological: Cranial nerves II-XII grossly intact Psych/Mental Status: Normal Affect Debridement Note Post-Debridement Measurements/Treatment WC - Nurse 2 - General Ulcer CM Notes Start: 05/11/18 08:20 Freq: Status: Active Protocol: Activity Type Activity Date Activity User E-Sign Co-Sign Detail Recorded Client Recorded Date Recorded By Document 05/11/18 09:44 MW [id number] 05/11/18 09:56 MW 05/11/18 09:44 Wound Center Nurse 2 #2 Left LATERAL BKA -Time 09:44 -Correct Patient Yes -Correct Side, Site, Position Yes -Correct Procedure Yes -Procedure Performed Yes -Type of Procedure Debridement -Clinical Debridement Subcutaneous -Post Debridement Size (cm) - Length 0.8 -Post Debridement Size (cm) - Width 2.0 -Post Debridement Size (cm) - Depth 0.3 -Total Square Cm 1.60 -Wound/Ulcer Outcome Not Healed -Ulcer Cleansing Rinsed/ Irrigated with Saline -Foul Odor after Cleansing No -Bioengineered Tissue No -Bleeding Controlled with Pressure -Treatment Response Procedure Tolerated Well #1 Left Medial BKA -Time 09:44 -Correct Patient Yes -Correct Side, Site, Position Yes -Correct Procedure Yes -Procedure Performed Yes -Type of Procedure Debridement -Clinical Debridement Subcutaneous -Post Debridement Size (cm) - Length 2.8 -Post Debridement Size (cm) - Width 5.5 -Post Debridement Size (cm) - Depth 0.8 -Total Square Cm 15.40 -Wound/Ulcer Outcome Not Healed -Ulcer Cleansing Rinsed/ Irrigated with Saline -Foul Odor after Cleansing No -Bioengineered Tissue No -Bleeding Controlled with Pressure -Other TUNNEL @ 2 - 4. 0CM -Treatment Response Procedure Tolerated Well Pain Scale: 0-10 Numeric Is Patient Pain Free? Yes Wound debrided: Left BKA medial Wound Grade/Stage: Stage III Type of Debridement: Excisional debridement Anesthesia Used: 4% Lidocaine Solution Depth: Down to and including healthy tissue Percentage of wound debrided: 100 Instrument Used: 7mm curette Tissue Removed: Slough and devitalized tissue Severity: Fat Layer Exposed Amount of bleeding with debridement: Mild Bleeding Controlled with: Pressure Patient tolerated procedure well - Additional Wound Wound debrided: Left BKA stump lateral Wound Grade/Stage: Stage II Type of Debridement: Excisional debridement Anesthesia Used: 4% Lidocaine Solution Depth: Down to and including healthy tissue, in the subcutaneous layer Percentage of wound debrided: 100 Instrument Used: 7mm curette Tissue Removed: Slough and devitalized tissue Severity: Fat Layer Exposed Amount of bleeding with debridement: Mild Bleeding Controlled with: Pressure Patient tolerated procedure: Patient tolerated procedure well Assessment/Plan Active Problems Status post below knee amputation of left lower extremity (Chronic) Non-healing surgical wound (Chronic) Left BKA Stump. Ulcer of left lower extremity with fat layer exposed (Chronic) Left BKA stump. Peripheral vascular disease (Acute) Assessment: Same as above. Peripheral vascular Disease. Plan: Debridement of both ulcers done as documented above. Procedure was well-tolerated. Malodor noted from the medial surgical wound, tunnel at 2 o'clock position. Cultures taken. Continue wound VAC at 125 mmHg. White foam into tunnel. Continue increased protein intake/supplements. Antibiotics if indicated per culture and sensitivity. Will request records from [place] and other physicians. She was advised to call with any concerns or questions. Follow-up in 1 week. This note was generated with [employer] software. It may contain incorrect words, spelling, and punctuation that were not noted in checking the note before signing.
[2018-05-18 11:07] VITALS: BP 133/78; PULSE 74; RESP 18; TEMP 36.5; BMI 28.2
--- NOTE | 2018-05-18 11:50 | PCM.WC.PN ---
(1) Non-healing surgical wound Status: Chronic Current Visit: Yes Code(s): T81.89XA - Other complications of procedures, not elsewhere classified, initial encounter Comment: Left BKA Stump. (2) Ulcer of left lower extremity with fat layer exposed Status: Chronic Current Visit: Yes Code(s): L97.922 - Non-pressure chronic ulcer of unspecified part of left lower leg with fat layer exposed Comment: Left BKA stump. (3) Status post below knee amputation of left lower extremity Status: Chronic Current Visit: Yes Code(s): Z89.512 - Acquired absence of left leg below knee (4) Peripheral vascular disease Status: Acute Current Visit: Yes Code(s): I73.9 - Peripheral vascular disease, unspecified Type of Wound Chief Complaint: Left BKA non healing post surgical wound and Ulcer. History of Wound: Ms. Mendenhall is a 52yo with PMH as stated above who presented to the wound center for management of her Left stump wound/ulcer. She is status post amputattion in February however, in she noted increased wound draingae from the stump site and subsequent opening of the wound. She was seen at the [facility] and had two debridements and wound vac placement. She has also been on a course of antibiotics. She denies any significnat concerns or feeling of unwell at this time. Progress of Wound: Stable. No new complaints at this time. - Physical Exam Vital Signs Temp Pulse Resp BP 97.7 F L 74 18 133/78 H 05/18/18 11:07 05/18/18 11:07 05/18/18 11:07 05/18/18 11:07 General: Alert, Oriented x3, Cooperative, No apparent distress HEENT: Atraumatic Oral: Moist Mucosa Neck: Supple Lungs: Normal air movement Abdomen: Soft, Non Tender Extremities: No cyanosis Skin: Ulcer/ Wound Wound Measurements and Assessment WC - Nurse 1 - General Ulcer Measurement Start: 05/11/18 08:20 Freq: Status: Active Protocol: Activity Type Activity Date Activity User E-Sign Co-Sign Detail Recorded Client Recorded Date Recorded By Document 05/18/18 11:07 RB [id number] 05/18/18 11:18 RB 05/18/18 11:07 Wound Center Nurse 1 [Ulcer Assessment] #2 Left LATERAL BKA -Combined with other wound No -Current Size (cm) - Length 0.7 -Current Size (cm) - Width 1.6 -Current Size (cm) - Depth 0.4 -Total Square Cm 1.12 -Photo Taken No -Tunneling No -Undermining/Tunneling No -Circular Undermining No -Exudate Amt Medium (34-66%) -Exudate Type Serosanguineous -Wound Margin Thickened & Rolled Under -Granulation Amt Large (67-100%) -Granulation Quality [place] -Slough/Fibrin Yes -Necrosis Amt Small (1-33%) -Necrotic Tissue Type Adherent Slough -Structure Exposed N/A -Texture (Mandy-wound Skin Appearance) Assessed -Moisture (Mandy-wound Skin Appearance Assessed ) -Color (Mandy-wound Skin Appearance) Assessed -Temperature (Mandy-wound Skin No Abnormality Appearance) (Pt Warm) -Tenderness on Palpation (Mandy-wound No Skin Appearance) -Ulcer Cleansing Rinsed/ Irrigated with Saline -Foul Odor after Cleansing No -Anesthetic Used 5% Lidocaine Gel #1 Left Medial BKA -Combined with other wound No -Current Size (cm) - Length 2.7 -Current Size (cm) - Width 4.3 -Current Size (cm) - Depth 2.8 -Total Square Cm 11.61 -Photo Taken No -Tunneling Yes -Tunneling Position (O'clock) 2 -Tunneling Distance (cm) 2.5 -Undermining/Tunneling No -Circular Undermining No -Exudate Amt Medium (34-66%) -Exudate Type Serosanguineous -Wound Margin Distinct, Outline Attached -Granulation Amt Medium (34-66%) -Granulation Quality [place] -Slough/Fibrin Yes -Necrosis Amt Small (1-33%) -Necrotic Tissue Type Adherent Slough -Structure Exposed N/A -Texture (Mandy-wound Skin Appearance) Assessed -Moisture (Mandy-wound Skin Appearance Assessed ) -Color (Mandy-wound Skin Appearance) Assessed -Temperature (Mandy-wound Skin No Abnormality Appearance) (Pt Warm) -Tenderness on Palpation (Mandy-wound No Skin Appearance) -Ulcer Cleansing Rinsed/ Irrigated with Saline -Foul Odor after Cleansing No -Anesthetic Used 5% Lidocaine Gel WC - Nurse 2 - General Ulcer CM Notes Start: 05/11/18 08:20 Freq: Status: Active Protocol: Activity Type Activity Date Activity User E-Sign Co-Sign Detail Recorded Client Recorded Date Recorded By Document 05/18/18 11:37 MW [id number] 05/18/18 11:47 MW 05/18/18 11:37 Wound Center Nurse 2 [Procedure/Treatment] #2 Left LATERAL BKA -Time 11:38 -Correct Patient Yes -Correct Side, Site, Position Yes -Correct Procedure Yes -Procedure Performed Yes -Type of Procedure Debridement -Clinical Debridement Subcutaneous -Post Debridement Size (cm) - Length 2.3 -Post Debridement Size (cm) - Width 4.4 -Post Debridement Size (cm) - Depth 0.8 -Total Square Cm 10.12 -Wound/Ulcer Outcome Not Healed -Ulcer Cleansing Rinsed/ Irrigated with Saline -Foul Odor after Cleansing No -Bioengineered Tissue No -Bleeding Controlled with Pressure -Treatment Response Procedure Tolerated Well #1 Left Medial BKA -Time 11:38 -Correct Patient Yes -Correct Side, Site, Position Yes -Correct Procedure Yes -Procedure Performed Yes -Type of Procedure Debridement -Clinical Debridement Subcutaneous -Post Debridement Size (cm) - Length 0.5 -Post Debridement Size (cm) - Width 1.6 -Post Debridement Size (cm) - Depth 0.2 -Total Square Cm 0.80 -Wound/Ulcer Outcome Not Healed -Ulcer Cleansing Rinsed/ Irrigated with Saline -Foul Odor after Cleansing No -Bioengineered Tissue No -Bleeding Controlled with Pressure -Treatment Response Procedure Tolerated Well [See Physician Procedure note for Specifics] Pain Scale: 0-10 Numeric [Pain] -Is Patient Pain Free? Yes Musculoskeletal: No Muscle Wasting Neurological: Cranial nerves II-XII grossly intact Psych/Mental Status: Normal Affect Debridement Note Post-Debridement Measurements/Treatment WC - Nurse 2 - General Ulcer CM Notes Start: 05/11/18 08:20 Freq: Status: Active Protocol: Activity Type Activity Date Activity User E-Sign Co-Sign Detail Recorded Client Recorded Date Recorded By Document 05/11/18 09:44 MW [id number] 05/11/18 09:56 MW Document 05/18/18 11:37 MW [id number] 05/18/18 11:47 MW 05/11/18 05/18/18 09:44 11:37 Wound Center Nurse 2 #2 Left LATERAL BKA -Time 09:44 11:38 -Correct Patient Yes Yes -Correct Side, Site, Position Yes Yes -Correct Procedure Yes Yes -Procedure Performed Yes Yes -Type of Procedure Debridement Debridement -Clinical Debridement Subcutaneous Subcutaneous -Post Debridement Size (cm) - Length 0.8 2.3 -Post Debridement Size (cm) - Width 2.0 4.4 -Post Debridement Size (cm) - Depth 0.3 0.8 -Total Square Cm 1.60 10.12 -Wound/Ulcer Outcome Not Healed Not Healed -Ulcer Cleansing Rinsed/ Rinsed/ Irrigated with Irrigated with Saline Saline -Foul Odor after Cleansing No No -Bioengineered Tissue No No -Bleeding Controlled with Pressure Pressure -Treatment Response Procedure Procedure Tolerated Well Tolerated Well #1 Left Medial BKA -Time 09:44 11:38 -Correct Patient Yes Yes -Correct Side, Site, Position Yes Yes -Correct Procedure Yes Yes -Procedure Performed Yes Yes -Type of Procedure Debridement Debridement -Clinical Debridement Subcutaneous Subcutaneous -Post Debridement Size (cm) - Length 2.8 0.5 -Post Debridement Size (cm) - Width 5.5 1.6 -Post Debridement Size (cm) - Depth 0.8 0.2 -Total Square Cm 15.40 0.80 -Wound/Ulcer Outcome Not Healed Not Healed -Ulcer Cleansing Rinsed/ Rinsed/ Irrigated with Irrigated with Saline Saline -Foul Odor after Cleansing No No -Bioengineered Tissue No No -Bleeding Controlled with Pressure Pressure -Other TUNNEL @ 2 - 4. 0CM -Treatment Response Procedure Procedure Tolerated Well Tolerated Well Pain Scale: 0-10 Numeric Is Patient Pain Free? Yes Yes Wound debrided: Left stump medial Wound Grade/Stage: Stage III Anesthesia Used: 4% Lidocaine Solution Depth: Down to and including healthy tissue, in the subcutaneous layer Percentage of wound debrided: 100 Instrument Used: #15 blade Tissue Removed: Slough and devitalized tissue Severity: Fat Layer Exposed Amount of bleeding with debridement: Mild Bleeding Controlled with: Pressure Patient tolerated procedure well - Additional Wound Wound debrided: Left stump, lateral. Wound Grade/Stage: Stage II Anesthesia Used: 4% Lidocaine Solution Depth: Down to and including healthy tissue Percentage of wound debrided: 100 Instrument Used: #15 blade Tissue Removed: Slough and devitalized tissue Severity: Fat Layer Exposed Amount of bleeding with debridement: Mild Bleeding Controlled with: Pressure Patient tolerated procedure: Patient tolerated procedure well Assessment/Plan Active Problems Status post below knee amputation of left lower extremity (Chronic) Non-healing surgical wound (Chronic) Left BKA Stump. Ulcer of left lower extremity with fat layer exposed (Chronic) Left BKA stump. Peripheral vascular disease (Acute) Assessment: Same as above. Peripheral vascular Disease. Plan: Debridement of both ulcers done as documented above. Procedure was well-tolerated. Less odourous today. Sge has strted on Levofloxacin per C/S. Continue wound Vac at 150mmHg. Continue increased protein intake/supplements. She was advised to call with any concerns or questions. Follow-up in 1 week. This note was generated with [employer] dictation software. It may contain incorrect words, spelling, and punctuation that were not noted in checking the note before signing.
--- NOTE | 2018-05-18 11:53 | PN.PCM_ITS ---
(1) Non-healing surgical wound Status: Chronic Current Visit: Yes Code(s): T81.89XA - Other complications of procedures, not elsewhere classified, initial encounter Comment: Left BKA Stump. (2) Ulcer of left lower extremity with fat layer exposed Status: Chronic Current Visit: Yes Code(s): L97.922 - Non-pressure chronic ulcer of unspecified part of left lower leg with fat layer exposed Comment: Left BKA stump. (3) Status post below knee amputation of left lower extremity Status: Chronic Current Visit: Yes Code(s): Z89.512 - Acquired absence of left leg below knee (4) Peripheral vascular disease Status: Acute Current Visit: Yes Code(s): I73.9 - Peripheral vascular disease, unspecified Type of Wound Chief Complaint: Left BKA non healing post surgical wound and Ulcer. History of Wound: Ms. Mendenhall is a 52yo with PMH as stated above who presented to the wound center for management of her Left stump wound/ulcer. She is status post amputattion in February however, in she noted increased wound draingae from the stump site and subsequent opening of the wound. She was seen at the [facility] and had two debridements and wound vac placement. She has also been on a course of antibiotics. She denies any significnat concerns or feeling of unwell at this time. Progress of Wound: Stable. No new complaints at this time. - Physical Exam Vital Signs Temp Pulse Resp BP 97.7 F L 74 18 133/78 H 05/18/18 11:07 05/18/18 11:07 05/18/18 11:07 05/18/18 11:07 General: Alert, Oriented x3, Cooperative, No apparent distress HEENT: Atraumatic Oral: Moist Mucosa Neck: Supple Lungs: Normal air movement Abdomen: Soft, Non Tender Extremities: No cyanosis Skin: Ulcer/ Wound Wound Measurements and Assessment WC - Nurse 1 - General Ulcer Measurement Start: 05/11/18 08:20 Freq: Status: Active Protocol: Activity Type Activity Date Activity User E-Sign Co-Sign Detail Recorded Client Recorded Date Recorded By Document 05/18/18 11:07 RB [id number] 05/18/18 11:18 RB 05/18/18 11:07 Wound Center Nurse 1 [Ulcer Assessment] #2 Left LATERAL BKA -Combined with other wound No -Current Size (cm) - Length 0.7 -Current Size (cm) - Width 1.6 -Current Size (cm) - Depth 0.4 -Total Square Cm 1.12 -Photo Taken No -Tunneling No -Undermining/Tunneling No -Circular Undermining No -Exudate Amt Medium (34-66%) -Exudate Type Serosanguineous -Wound Margin Thickened & Rolled Under -Granulation Amt Large (67-100%) -Granulation Quality [place] -Slough/Fibrin Yes -Necrosis Amt Small (1-33%) -Necrotic Tissue Type Adherent Slough -Structure Exposed N/A -Texture (Mandy-wound Skin Appearance) Assessed -Moisture (Mandy-wound Skin Appearance Assessed ) -Color (Mandy-wound Skin Appearance) Assessed -Temperature (Mandy-wound Skin No Abnormality Appearance) (Pt Warm) -Tenderness on Palpation (Mandy-wound No Skin Appearance) -Ulcer Cleansing Rinsed/ Irrigated with Saline -Foul Odor after Cleansing No -Anesthetic Used 5% Lidocaine Gel #1 Left Medial BKA -Combined with other wound No -Current Size (cm) - Length 2.7 -Current Size (cm) - Width 4.3 -Current Size (cm) - Depth 2.8 -Total Square Cm 11.61 -Photo Taken No -Tunneling Yes -Tunneling Position (O'clock) 2 -Tunneling Distance (cm) 2.5 -Undermining/Tunneling No -Circular Undermining No -Exudate Amt Medium (34-66%) -Exudate Type Serosanguineous -Wound Margin Distinct, Outline Attached -Granulation Amt Medium (34-66%) -Granulation Quality [place] -Slough/Fibrin Yes -Necrosis Amt Small (1-33%) -Necrotic Tissue Type Adherent Slough -Structure Exposed N/A -Texture (Mandy-wound Skin Appearance) Assessed -Moisture (Mandy-wound Skin Appearance Assessed ) -Color (Mandy-wound Skin Appearance) Assessed -Temperature (Mandy-wound Skin No Abnormality Appearance) (Pt Warm) -Tenderness on Palpation (Mandy-wound No Skin Appearance) -Ulcer Cleansing Rinsed/ Irrigated with Saline -Foul Odor after Cleansing No -Anesthetic Used 5% Lidocaine Gel WC - Nurse 2 - General Ulcer CM Notes Start: 05/11/18 08:20 Freq: Status: Active Protocol: Activity Type Activity Date Activity User E-Sign Co-Sign Detail Recorded Client Recorded Date Recorded By Document 05/18/18 11:37 MW [id number] 05/18/18 11:47 MW 05/18/18 11:37 Wound Center Nurse 2 [Procedure/Treatment] #2 Left LATERAL BKA -Time 11:38 -Correct Patient Yes -Correct Side, Site, Position Yes -Correct Procedure Yes -Procedure Performed Yes -Type of Procedure Debridement -Clinical Debridement Subcutaneous -Post Debridement Size (cm) - Length 2.3 -Post Debridement Size (cm) - Width 4.4 -Post Debridement Size (cm) - Depth 0.8 -Total Square Cm 10.12 -Wound/Ulcer Outcome Not Healed -Ulcer Cleansing Rinsed/ Irrigated with Saline -Foul Odor after Cleansing No -Bioengineered Tissue No -Bleeding Controlled with Pressure -Treatment Response Procedure Tolerated Well #1 Left Medial BKA -Time 11:38 -Correct Patient Yes -Correct Side, Site, Position Yes -Correct Procedure Yes -Procedure Performed Yes -Type of Procedure Debridement -Clinical Debridement Subcutaneous -Post Debridement Size (cm) - Length 0.5 -Post Debridement Size (cm) - Width 1.6 -Post Debridement Size (cm) - Depth 0.2 -Total Square Cm 0.80 -Wound/Ulcer Outcome Not Healed -Ulcer Cleansing Rinsed/ Irrigated with Saline -Foul Odor after Cleansing No -Bioengineered Tissue No -Bleeding Controlled with Pressure -Treatment Response Procedure Tolerated Well [See Physician Procedure note for Specifics] Pain Scale: 0-10 Numeric [Pain] -Is Patient Pain Free? Yes Musculoskeletal: No Muscle Wasting Neurological: Cranial nerves II-XII grossly intact Psych/Mental Status: Normal Affect Debridement Note Post-Debridement Measurements/Treatment WC - Nurse 2 - General Ulcer CM Notes Start: 05/11/18 08:20 Freq: Status: Active Protocol: Activity Type Activity Date Activity User E-Sign Co-Sign Detail Recorded Client Recorded Date Recorded By Document 05/11/18 09:44 MW [id number] 05/11/18 09:56 MW Document 05/18/18 11:37 MW [id number] 05/18/18 11:47 MW 05/11/18 05/18/18 09:44 11:37 Wound Center Nurse 2 #2 Left LATERAL BKA -Time 09:44 11:38 -Correct Patient Yes Yes -Correct Side, Site, Position Yes Yes -Correct Procedure Yes Yes -Procedure Performed Yes Yes -Type of Procedure Debridement Debridement -Clinical Debridement Subcutaneous Subcutaneous -Post Debridement Size (cm) - Length 0.8 2.3 -Post Debridement Size (cm) - Width 2.0 4.4 -Post Debridement Size (cm) - Depth 0.3 0.8 -Total Square Cm 1.60 10.12 -Wound/Ulcer Outcome Not Healed Not Healed -Ulcer Cleansing Rinsed/ Rinsed/ Irrigated with Irrigated with Saline Saline -Foul Odor after Cleansing No No -Bioengineered Tissue No No -Bleeding Controlled with Pressure Pressure -Treatment Response Procedure Procedure Tolerated Well Tolerated Well #1 Left Medial BKA -Time 09:44 11:38 -Correct Patient Yes Yes -Correct Side, Site, Position Yes Yes -Correct Procedure Yes Yes -Procedure Performed Yes Yes -Type of Procedure Debridement Debridement -Clinical Debridement Subcutaneous Subcutaneous -Post Debridement Size (cm) - Length 2.8 0.5 -Post Debridement Size (cm) - Width 5.5 1.6 -Post Debridement Size (cm) - Depth 0.8 0.2 -Total Square Cm 15.40 0.80 -Wound/Ulcer Outcome Not Healed Not Healed -Ulcer Cleansing Rinsed/ Rinsed/ Irrigated with Irrigated with Saline Saline -Foul Odor after Cleansing No No -Bioengineered Tissue No No -Bleeding Controlled with Pressure Pressure -Other TUNNEL @ 2 - 4. 0CM -Treatment Response Procedure Procedure Tolerated Well Tolerated Well Pain Scale: 0-10 Numeric Is Patient Pain Free? Yes Yes Wound debrided: Left stump medial Wound Grade/Stage: Stage III Anesthesia Used: 4% Lidocaine Solution Depth: Down to and including healthy tissue, in the subcutaneous layer Percentage of wound debrided: 100 Instrument Used: #15 blade Tissue Removed: Slough and devitalized tissue Severity: Fat Layer Exposed Amount of bleeding with debridement: Mild Bleeding Controlled with: Pressure Patient tolerated procedure well - Additional Wound Wound debrided: Left stump, lateral. Wound Grade/Stage: Stage II Anesthesia Used: 4% Lidocaine Solution Depth: Down to and including healthy tissue Percentage of wound debrided: 100 Instrument Used: #15 blade Tissue Removed: Slough and devitalized tissue Severity: Fat Layer Exposed Amount of bleeding with debridement: Mild Bleeding Controlled with: Pressure Patient tolerated procedure: Patient tolerated procedure well Assessment/Plan Active Problems Status post below knee amputation of left lower extremity (Chronic) Non-healing surgical wound (Chronic) Left BKA Stump. Ulcer of left lower extremity with fat layer exposed (Chronic) Left BKA stump. Peripheral vascular disease (Acute) Assessment: Same as above. Peripheral vascular Disease. Plan: Debridement of both ulcers done as documented above. Procedure was well- tolerated. Less odourous today. Sge has strted on Levofloxacin per C/S. Continue wound Vac at 150mmHg. Continue increased protein intake/supplements. She was advised to call with any concerns or questions. Follow-up in 1 week. This note was generated with [employer] dictation software. It may contain incorrect words, spelling, and punctuation that were not noted in checking the note before signing.
== END 2018-05-18 23:59 ==
LOC: WC 10:45
PROVIDERS: Family Provider Family Medicine; PCP Family Medicine; Visit Provider Internal Medicine
DX: T87.81 Dehiscence of amputation stump (principal); Y83.8 Other surgical procedures as the cause of abnormal reaction of the patient, or of later complication, without mention of misadventure at the time of the procedure; I73.9 Peripheral vascular disease, unspecified; Z89.512 Acquired absence of left leg below knee; Z87.891 Personal history of nicotine dependence; Z79.899 Other long term (current) drug therapy
CPT/HCPCS: 11042; 87070; 87077; 87186; 87205; 97605; 99203; G0463

== ENCOUNTER 2018-06-16 11:45 | Outpatient (RCR) | payer MEDICARE, SELFPAY ==
[2018-05-19 02:08] VITALS: BP 133/78; PULSE 74; RESP 18; TEMP 36.5
[2018-05-25 10:42] VITALS: BP 101/68; PULSE 88; RESP 16; TEMP 36.3
--- NOTE | 2018-05-25 12:47 | PCM.WC.PN ---
(1) Non-healing surgical wound Status: Chronic Current Visit: Yes Code(s): T81.89XA - Other complications of procedures, not elsewhere classified, initial encounter Comment: Left BKA Stump. (2) Ulcer of left lower extremity with fat layer exposed Status: Chronic Current Visit: Yes Code(s): L97.922 - Non-pressure chronic ulcer of unspecified part of left lower leg with fat layer exposed Comment: Left BKA stump. (3) Peripheral vascular disease Status: Acute Current Visit: No Code(s): I73.9 - Peripheral vascular disease, unspecified (4) Status post below knee amputation of left lower extremity Status: Chronic Current Visit: No Code(s): Z89.512 - Acquired absence of left leg below knee Type of Wound Chief Complaint: Left BKA non healing post surgical wound and Ulcer. History of Wound: Ms. Mendenhall is a 52yo with PMH as stated above who presented to the wound center for management of her Left stump wound/ulcer. She is status post amputattion in February however, in she noted increased wound draingae from the stump site and subsequent opening of the wound. She was seen at the [facility] and had two debridements and wound vac placement. She has also been on a course of antibiotics. She denies any significnat concerns or feeling of unwell at this time. Progress of Wound: Stable. No new complaints at this time. - Physical Exam Vital Signs Temp Pulse Resp BP 97.3 F L 88 16 101/68 05/25/18 10:42 05/25/18 10:42 05/25/18 10:42 05/25/18 10:42 General: Alert, Oriented x3, Cooperative, No apparent distress HEENT: Atraumatic Oral: Moist Mucosa Neck: Supple Lungs: Normal air movement Abdomen: Non Tender Extremities: No cyanosis Skin: Ulcer/ Wound Wound Measurements and Assessment WC - Nurse 1 - General Ulcer Measurement Start: 05/25/18 10:42 Freq: Status: Active Protocol: Activity Type Activity Date Activity User E-Sign Co-Sign Detail Recorded Client Recorded Date Recorded By Document 05/25/18 10:42 [facility] [id number] 05/25/18 10:50 [facility] 05/25/18 10:42 Wound Center Nurse 1 [Ulcer Assessment] #2 Left LATERAL BKA -Combined with other wound No -Current Size (cm) - Length 0.6 -Current Size (cm) - Width 1.1 -Current Size (cm) - Depth 0.2 -Total Square Cm 0.66 -Photo Taken No -Tunneling No -Undermining/Tunneling No -Circular Undermining No -Exudate Amt Small (1-33%) -Exudate Type Serosanguineous -Wound Margin Distinct, Outline Attached -Granulation Amt Large (67-100%) -Granulation Quality [place] -Slough/Fibrin No -Necrosis Amt None Present (0 %) -Texture (Mandy-wound Skin Appearance) Scarring -Moisture (Mandy-wound Skin Appearance Maceration ) -Color (Mandy-wound Skin Appearance) Palor -Temperature (Mandy-wound Skin No Abnormality Appearance) (Pt Warm) -Tenderness on Palpation (Mandy-wound Yes Skin Appearance) -Ulcer Cleansing Rinsed/ Irrigated with Saline -Foul Odor after Cleansing No -Anesthetic Used 4% Lidocaine Solution #1 Left Medial BKA -Combined with other wound No -Current Size (cm) - Length 1.7 -Current Size (cm) - Width 3.6 -Current Size (cm) - Depth 1.7 -Total Square Cm 6.12 -Photo Taken No -Epithelialization None Present -Tunneling Yes -Tunneling Position (O'clock) 2 -Tunneling Distance (cm) 2.9 -Undermining/Tunneling No -Circular Undermining No -Exudate Amt Small (1-33%) -Exudate Type Serosanguineous -Wound Margin Distinct, Outline Attached -Granulation Amt Large (67-100%) -Granulation Quality Red -Slough/Fibrin Yes -Necrosis Amt Small (1-33%) -Necrotic Tissue Type Adherent Slough -Texture (Mandy-wound Skin Appearance) Scarring -Moisture (Mandy-wound Skin Appearance Assessed ) -Color (Mandy-wound Skin Appearance) Assessed -Temperature (Mandy-wound Skin No Abnormality Appearance) (Pt Warm) -Tenderness on Palpation (Mandy-wound Yes Skin Appearance) -Ulcer Cleansing Rinsed/ Irrigated with Saline -Foul Odor after Cleansing No -Anesthetic Used 4% Lidocaine Solution WC - Nurse 2 - General Ulcer CM Notes Start: 05/25/18 10:42 Freq: Status: Active Protocol: Activity Type Activity Date Activity User E-Sign Co-Sign Detail Recorded Client Recorded Date Recorded By Document 05/25/18 11:32 MW [id number] 05/25/18 11:37 MW 05/25/18 11:32 Wound Center Nurse 2 [Procedure/Treatment] #2 Left LATERAL BKA -Time 11:32 -Correct Patient Yes -Correct Side, Site, Position Yes -Correct Procedure Yes -Procedure Performed Yes -Type of Procedure Debridement -Clinical Debridement Subcutaneous -Post Debridement Size (cm) - Length 0.1 -Post Debridement Size (cm) - Width 0.1 -Post Debridement Size (cm) - Depth 0.1 -Total Square Cm 0.01 -Wound/Ulcer Outcome Not Healed -Ulcer Cleansing Rinsed/ Irrigated with Saline -Foul Odor after Cleansing No -Bioengineered Tissue No -Bleeding Controlled with Pressure -Other TUNNEL @2 - 2. 3CM -Treatment Response Procedure Tolerated Well #1 Left Medial BKA -Time 11:33 -Correct Patient Yes -Correct Side, Site, Position Yes -Correct Procedure Yes -Procedure Performed Yes -Type of Procedure Debridement -Clinical Debridement Subcutaneous -Post Debridement Size (cm) - Length 2.0 -Post Debridement Size (cm) - Width 4.0 -Post Debridement Size (cm) - Depth 0.8 -Total Square Cm 8.00 -Ulcer Cleansing Wound Cleanser -Foul Odor after Cleansing No -Bioengineered Tissue No -Bleeding Controlled with Pressure -Other TUNNEL @ 2 - 2. 3CM -Treatment Response Procedure Tolerated Well [See Physician Procedure note for Specifics] Pain Scale: 0-10 Numeric [Pain] -Is Patient Pain Free? Yes Musculoskeletal: No Muscle Wasting Neurological: Cranial nerves II-XII grossly intact Psych/Mental Status: Normal Affect Debridement Note Post-Debridement Measurements/Treatment WC - Nurse 2 - General Ulcer CM Notes Start: 05/25/18 10:42 Freq: Status: Active Protocol: Activity Type Activity Date Activity User E-Sign Co-Sign Detail Recorded Client Recorded Date Recorded By Document 05/25/18 11:32 MW [id number] 05/25/18 11:37 MW 05/25/18 11:32 Wound Center Nurse 2 #2 Left LATERAL BKA -Time 11:32 -Correct Patient Yes -Correct Side, Site, Position Yes -Correct Procedure Yes -Procedure Performed Yes -Type of Procedure Debridement -Clinical Debridement Subcutaneous -Post Debridement Size (cm) - Length 0.1 -Post Debridement Size (cm) - Width 0.1 -Post Debridement Size (cm) - Depth 0.1 -Total Square Cm 0.01 -Wound/Ulcer Outcome Not Healed -Ulcer Cleansing Rinsed/ Irrigated with Saline -Foul Odor after Cleansing No -Bioengineered Tissue No -Bleeding Controlled with Pressure -Other TUNNEL @2 - 2. 3CM -Treatment Response Procedure Tolerated Well #1 Left Medial BKA -Time 11:33 -Correct Patient Yes -Correct Side, Site, Position Yes -Correct Procedure Yes -Procedure Performed Yes -Type of Procedure Debridement -Clinical Debridement Subcutaneous -Post Debridement Size (cm) - Length 2.0 -Post Debridement Size (cm) - Width 4.0 -Post Debridement Size (cm) - Depth 0.8 -Total Square Cm 8.00 -Ulcer Cleansing Wound Cleanser -Foul Odor after Cleansing No -Bioengineered Tissue No -Bleeding Controlled with Pressure -Other TUNNEL @ 2 - 2. 3CM -Treatment Response Procedure Tolerated Well Pain Scale: 0-10 Numeric Is Patient Pain Free? Yes Wound debrided: Left lower extremity/stump Wound Grade/Stage: Stage III Type of Debridement: Excisional debridement Anesthesia Used: 4% Lidocaine Solution Depth: Down to and including healthy tissue, in the subcutaneous layer Percentage of wound debrided: 100 Instrument Used: 7mm curette Tissue Removed: Slough and devitalized tissue Severity: Fat Layer Exposed Amount of bleeding with debridement: Mild Bleeding Controlled with: Pressure Patient tolerated procedure well Assessment/Plan Active Problems Non-healing surgical wound (Chronic) Left BKA Stump. Ulcer of left lower extremity with fat layer exposed (Chronic) Left BKA stump. Assessment: Same as above. Peripheral vascular Disease. Plan: Lateral ulcer is almost completely healed. Debridement done as documented above. Procedure was well-tolerated. Continue wound Vac at 150mmHg. Fibracol with Adaptic to lateral ulcer. Continue increased protein intake/supplements. She was advised to call with any concerns or questions. Follow-up in 1 week. This note was generated with [employer] software. It may contain incorrect words, spelling, and punctuation that were not noted in checking the note before signing.
--- NOTE | 2018-05-25 12:50 | PN.PCM_ITS ---
(1) Non-healing surgical wound Status: Chronic Current Visit: Yes Code(s): T81.89XA - Other complications of procedures, not elsewhere classified, initial encounter Comment: Left BKA Stump. (2) Ulcer of left lower extremity with fat layer exposed Status: Chronic Current Visit: Yes Code(s): L97.922 - Non-pressure chronic ulcer of unspecified part of left lower leg with fat layer exposed Comment: Left BKA stump. (3) Peripheral vascular disease Status: Acute Current Visit: No Code(s): I73.9 - Peripheral vascular disease, unspecified (4) Status post below knee amputation of left lower extremity Status: Chronic Current Visit: No Code(s): Z89.512 - Acquired absence of left leg below knee Type of Wound Chief Complaint: Left BKA non healing post surgical wound and Ulcer. History of Wound: Ms. Mendenhall is a 52yo with PMH as stated above who presented to the wound center for management of her Left stump wound/ulcer. She is status post amputattion in February however, in she noted increased wound draingae from the stump site and subsequent opening of the wound. She was seen at the [facility] and had two debridements and wound vac placement. She has also been on a course of antibiotics. She denies any significnat concerns or feeling of unwell at this time. Progress of Wound: Stable. No new complaints at this time. - Physical Exam Vital Signs Temp Pulse Resp BP 97.3 F L 88 16 101/68 05/25/18 10:42 05/25/18 10:42 05/25/18 10:42 05/25/18 10:42 General: Alert, Oriented x3, Cooperative, No apparent distress HEENT: Atraumatic Oral: Moist Mucosa Neck: Supple Lungs: Normal air movement Abdomen: Non Tender Extremities: No cyanosis Skin: Ulcer/ Wound Wound Measurements and Assessment WC - Nurse 1 - General Ulcer Measurement Start: 05/25/18 10:42 Freq: Status: Active Protocol: Activity Type Activity Date Activity User E-Sign Co-Sign Detail Recorded Client Recorded Date Recorded By Document 05/25/18 10:42 [facility] [id number] 05/25/18 10:50 [facility] 05/25/18 10:42 Wound Center Nurse 1 [Ulcer Assessment] #2 Left LATERAL BKA -Combined with other wound No -Current Size (cm) - Length 0.6 -Current Size (cm) - Width 1.1 -Current Size (cm) - Depth 0.2 -Total Square Cm 0.66 -Photo Taken No -Tunneling No -Undermining/Tunneling No -Circular Undermining No -Exudate Amt Small (1-33%) -Exudate Type Serosanguineous -Wound Margin Distinct, Outline Attached -Granulation Amt Large (67-100%) -Granulation Quality [place] -Slough/Fibrin No -Necrosis Amt None Present (0 %) -Texture (Mandy-wound Skin Appearance) Scarring -Moisture (Mandy-wound Skin Appearance Maceration ) -Color (Mandy-wound Skin Appearance) Palor -Temperature (Mandy-wound Skin No Abnormality Appearance) (Pt Warm) -Tenderness on Palpation (Mandy-wound Yes Skin Appearance) -Ulcer Cleansing Rinsed/ Irrigated with Saline -Foul Odor after Cleansing No -Anesthetic Used 4% Lidocaine Solution #1 Left Medial BKA -Combined with other wound No -Current Size (cm) - Length 1.7 -Current Size (cm) - Width 3.6 -Current Size (cm) - Depth 1.7 -Total Square Cm 6.12 -Photo Taken No -Epithelialization None Present -Tunneling Yes -Tunneling Position (O'clock) 2 -Tunneling Distance (cm) 2.9 -Undermining/Tunneling No -Circular Undermining No -Exudate Amt Small (1-33%) -Exudate Type Serosanguineous -Wound Margin Distinct, Outline Attached -Granulation Amt Large (67-100%) -Granulation Quality [place] -Slough/Fibrin Yes -Necrosis Amt Small (1-33%) -Necrotic Tissue Type Adherent Slough -Texture (Mandy-wound Skin Appearance) Scarring -Moisture (Mandy-wound Skin Appearance Assessed ) -Color (Mandy-wound Skin Appearance) Assessed -Temperature (Mandy-wound Skin No Abnormality Appearance) (Pt Warm) -Tenderness on Palpation (Mandy-wound Yes Skin Appearance) -Ulcer Cleansing Rinsed/ Irrigated with Saline -Foul Odor after Cleansing No -Anesthetic Used 4% Lidocaine Solution WC - Nurse 2 - General Ulcer CM Notes Start: 05/25/18 10:42 Freq: Status: Active Protocol: Activity Type Activity Date Activity User E-Sign Co-Sign Detail Recorded Client Recorded Date Recorded By Document 05/25/18 11:32 MW [id number] 05/25/18 11:37 MW 05/25/18 11:32 Wound Center Nurse 2 [Procedure/Treatment] #2 Left LATERAL BKA -Time 11:32 -Correct Patient Yes -Correct Side, Site, Position Yes -Correct Procedure Yes -Procedure Performed Yes -Type of Procedure Debridement -Clinical Debridement Subcutaneous -Post Debridement Size (cm) - Length 0.1 -Post Debridement Size (cm) - Width 0.1 -Post Debridement Size (cm) - Depth 0.1 -Total Square Cm 0.01 -Wound/Ulcer Outcome Not Healed -Ulcer Cleansing Rinsed/ Irrigated with Saline -Foul Odor after Cleansing No -Bioengineered Tissue No -Bleeding Controlled with Pressure -Other TUNNEL @2 - 2. 3CM -Treatment Response Procedure Tolerated Well #1 Left Medial BKA -Time 11:33 -Correct Patient Yes -Correct Side, Site, Position Yes -Correct Procedure Yes -Procedure Performed Yes -Type of Procedure Debridement -Clinical Debridement Subcutaneous -Post Debridement Size (cm) - Length 2.0 -Post Debridement Size (cm) - Width 4.0 -Post Debridement Size (cm) - Depth 0.8 -Total Square Cm 8.00 -Ulcer Cleansing Wound Cleanser -Foul Odor after Cleansing No -Bioengineered Tissue No -Bleeding Controlled with Pressure -Other TUNNEL @ 2 - 2. 3CM -Treatment Response Procedure Tolerated Well [See Physician Procedure note for Specifics] Pain Scale: 0-10 Numeric [Pain] -Is Patient Pain Free? Yes Musculoskeletal: No Muscle Wasting Neurological: Cranial nerves II-XII grossly intact Psych/Mental Status: Normal Affect Debridement Note Post-Debridement Measurements/Treatment WC - Nurse 2 - General Ulcer CM Notes Start: 05/25/18 10:42 Freq: Status: Active Protocol: Activity Type Activity Date Activity User E-Sign Co-Sign Detail Recorded Client Recorded Date Recorded By Document 05/25/18 11:32 MW [id number] 05/25/18 11:37 MW 05/25/18 11:32 Wound Center Nurse 2 #2 Left LATERAL BKA -Time 11:32 -Correct Patient Yes -Correct Side, Site, Position Yes -Correct Procedure Yes -Procedure Performed Yes -Type of Procedure Debridement -Clinical Debridement Subcutaneous -Post Debridement Size (cm) - Length 0.1 -Post Debridement Size (cm) - Width 0.1 -Post Debridement Size (cm) - Depth 0.1 -Total Square Cm 0.01 -Wound/Ulcer Outcome Not Healed -Ulcer Cleansing Rinsed/ Irrigated with Saline -Foul Odor after Cleansing No -Bioengineered Tissue No -Bleeding Controlled with Pressure -Other TUNNEL @2 - 2. 3CM -Treatment Response Procedure Tolerated Well #1 Left Medial BKA -Time 11:33 -Correct Patient Yes -Correct Side, Site, Position Yes -Correct Procedure Yes -Procedure Performed Yes -Type of Procedure Debridement -Clinical Debridement Subcutaneous -Post Debridement Size (cm) - Length 2.0 -Post Debridement Size (cm) - Width 4.0 -Post Debridement Size (cm) - Depth 0.8 -Total Square Cm 8.00 -Ulcer Cleansing Wound Cleanser -Foul Odor after Cleansing No -Bioengineered Tissue No -Bleeding Controlled with Pressure -Other TUNNEL @ 2 - 2. 3CM -Treatment Response Procedure Tolerated Well Pain Scale: 0-10 Numeric Is Patient Pain Free? Yes Wound debrided: Left lower extremity/stump Wound Grade/Stage: Stage III Type of Debridement: Excisional debridement Anesthesia Used: 4% Lidocaine Solution Depth: Down to and including healthy tissue, in the subcutaneous layer Percentage of wound debrided: 100 Instrument Used: 7mm curette Tissue Removed: Slough and devitalized tissue Severity: Fat Layer Exposed Amount of bleeding with debridement: Mild Bleeding Controlled with: Pressure Patient tolerated procedure well Assessment/Plan Active Problems Non-healing surgical wound (Chronic) Left BKA Stump. Ulcer of left lower extremity with fat layer exposed (Chronic) Left BKA stump. Assessment: Same as above. Peripheral vascular Disease. Plan: Lateral ulcer is almost completely healed. Debridement done as documented above. Procedure was well-tolerated. Continue wound Vac at 150mmHg. Fibracol with Adaptic to lateral ulcer. Continue increased protein intake/supplements. She was advised to call with any concerns or questions. Follow-up in 1 week. This note was generated with [employer]oderwall[employer] software. It may contain incorrect words, spelling, and punctuation that were not noted in checking the note before signing.
[2018-06-01 11:29] VITALS: BP 127/93; PULSE 86; RESP 16; TEMP 35.7
--- NOTE | 2018-06-01 12:15 | PCM.WC.PN ---
(1) Non-healing surgical wound Status: Chronic Current Visit: Yes Code(s): T81.89XA - Other complications of procedures, not elsewhere classified, initial encounter Comment: Left BKA Stump. (2) Ulcer of left lower extremity with fat layer exposed Status: Chronic Current Visit: Yes Code(s): L97.922 - Non-pressure chronic ulcer of unspecified part of left lower leg with fat layer exposed Comment: Left BKA stump. (3) Peripheral vascular disease Status: Acute Current Visit: No Code(s): I73.9 - Peripheral vascular disease, unspecified (4) Status post below knee amputation of left lower extremity Status: Chronic Current Visit: No Code(s): Z89.512 - Acquired absence of left leg below knee Type of Wound Chief Complaint: Left BKA non healing post surgical wound and Ulcer. History of Wound: Ms. Mendenhall is a 52yo with PMH as stated above who presented to the wound center for management of her Left stump wound/ulcer. She is status post amputattion in February however, in she noted increased wound draingae from the stump site and subsequent opening of the wound. She was seen at the [facility] and had two debridements and wound vac placement. She has also been on a course of antibiotics. She denies any significnat concerns or feeling of unwell at this time. Progress of Wound: Improving. Has not used Vac since Wednesday due to problems with her Vac. - Physical Exam Vital Signs Temp Pulse Resp BP 96.2 F L 86 16 127/93 H 06/01/18 11:29 06/01/18 11:29 06/01/18 11:29 06/01/18 11:29 General: Alert, Oriented x3, Cooperative, No apparent distress HEENT: Atraumatic Oral: Moist Mucosa Neck: Supple Lungs: Normal air movement Abdomen: Non Tender Extremities: No cyanosis Skin: Ulcer/ Wound Wound Measurements and Assessment WC - Nurse 1 - General Ulcer Measurement Start: 05/25/18 10:42 Freq: Status: Active Protocol: Activity Type Activity Date Activity User E-Sign Co-Sign Detail Recorded Client Recorded Date Recorded By Document 06/01/18 11:29 RB [id number] 06/01/18 11:34 RB 06/01/18 11:29 Wound Center Nurse 1 [Ulcer Assessment] #2 Left LATERAL BKA -Combined with other wound No -Current Size (cm) - Length 0.1 -Current Size (cm) - Width 0.2 -Current Size (cm) - Depth 0.1 -Total Square Cm 0.02 -Tunneling No -Undermining/Tunneling No -Circular Undermining No -Classification - Thickness Full Thickness without Exposed Support Structure -Exudate Amt Small (1-33%) -Exudate Type Serosanguineous -Wound Margin Distinct, Outline Attached -Granulation Amt Large (67-100%) -Granulation Quality [place] -Slough/Fibrin Yes -Necrosis Amt Small (1-33%) -Necrotic Tissue Type Adherent Slough -Structure Exposed N/A -Texture (Mandy-wound Skin Appearance) Assessed -Moisture (Mandy-wound Skin Appearance Assessed ) -Color (Mandy-wound Skin Appearance) Assessed -Temperature (Mandy-wound Skin No Abnormality Appearance) (Pt Warm) -Tenderness on Palpation (Mandy-wound No Skin Appearance) -Ulcer Cleansing Rinsed/ Irrigated with Saline -Foul Odor after Cleansing No -Anesthetic Used 5% Lidocaine Gel #1 Left Medial BKA -Combined with other wound No -Current Size (cm) - Length 1.7 -Current Size (cm) - Width 2.8 -Current Size (cm) - Depth 0.5 -Total Square Cm 4.76 -Photo Taken No -Tunneling No -Undermining/Tunneling No -Circular Undermining No -Classification - Thickness Full Thickness without Exposed Support Structure -Exudate Amt Small (1-33%) -Exudate Type Serosanguineous -Wound Margin Distinct, Outline Attached -Granulation Amt Medium (34-66%) -Granulation Quality [place] -Slough/Fibrin Yes -Necrosis Amt Small (1-33%) -Necrotic Tissue Type Adherent Slough -Structure Exposed N/A -Texture (Mandy-wound Skin Appearance) Assessed -Moisture (Mandy-wound Skin Appearance Assessed ) -Color (Mandy-wound Skin Appearance) Assessed -Temperature (Mandy-wound Skin No Abnormality Appearance) (Pt Warm) -Tenderness on Palpation (Mandy-wound No Skin Appearance) -Ulcer Cleansing Rinsed/ Irrigated with Saline -Foul Odor after Cleansing No -Anesthetic Used 5% Lidocaine Gel WC - Nurse 2 - General Ulcer CM Notes Start: 05/25/18 10:42 Freq: Status: Active Protocol: Activity Type Activity Date Activity User E-Sign Co-Sign Detail Recorded Client Recorded Date Recorded By Document 06/01/18 11:59 [id number] 06/01/18 12:00 06/01/18 11:59 Wound Center Nurse 2 [Procedure/Treatment] #2 Left LATERAL BKA -Time 11:59 -Correct Patient Yes -Correct Side, Site, Position Yes -Correct Procedure Yes -Procedure Performed Yes -Type of Procedure Debridement -Clinical Debridement Subcutaneous -Post Debridement Size (cm) - Length 1.5 -Post Debridement Size (cm) - Width 2.5 -Post Debridement Size (cm) - Depth 0.5 -Total Square Cm 3.75 -Wound/Ulcer Outcome Not Healed -Ulcer Cleansing Rinsed/ Irrigated with Saline -Foul Odor after Cleansing No -Bioengineered Tissue No -Bleeding Controlled with NA -Treatment Response Procedure Tolerated Well [See Physician Procedure note for Specifics] Pain Scale: 0-10 Numeric [Pain] -Is Patient Pain Free? Yes Musculoskeletal: No Muscle Wasting Neurological: Cranial nerves II-XII grossly intact Psych/Mental Status: Normal Affect Debridement Note Post-Debridement Measurements/Treatment WC - Nurse 2 - General Ulcer CM Notes Start: 05/25/18 10:42 Freq: Status: Active Protocol: Activity Type Activity Date Activity User E-Sign Co-Sign Detail Recorded Client Recorded Date Recorded By Document 05/25/18 11:32 MW [id number] 05/25/18 11:37 MW Document 06/01/18 11:59 CS [id number] 06/01/18 12:00 05/25/18 06/01/18 11:32 11:59 Wound Center Nurse 2 #2 Left LATERAL BKA -Time 11:32 11:59 -Correct Patient Yes Yes -Correct Side, Site, Position Yes Yes -Correct Procedure Yes Yes -Procedure Performed Yes Yes -Type of Procedure Debridement Debridement -Clinical Debridement Subcutaneous Subcutaneous -Post Debridement Size (cm) - Length 0.1 1.5 -Post Debridement Size (cm) - Width 0.1 2.5 -Post Debridement Size (cm) - Depth 0.1 0.5 -Total Square Cm 0.01 3.75 -Wound/Ulcer Outcome Not Healed Not Healed -Ulcer Cleansing Rinsed/ Rinsed/ Irrigated with Irrigated with Saline Saline -Foul Odor after Cleansing No No -Bioengineered Tissue No No -Bleeding Controlled with Pressure NA -Other TUNNEL @2 - 2. 3CM -Treatment Response Procedure Procedure Tolerated Well Tolerated Well #1 Left Medial BKA -Time 11:33 -Correct Patient Yes -Correct Side, Site, Position Yes -Correct Procedure Yes -Procedure Performed Yes -Type of Procedure Debridement -Clinical Debridement Subcutaneous -Post Debridement Size (cm) - Length 2.0 -Post Debridement Size (cm) - Width 4.0 -Post Debridement Size (cm) - Depth 0.8 -Total Square Cm 8.00 -Ulcer Cleansing Wound Cleanser -Foul Odor after Cleansing No -Bioengineered Tissue No -Bleeding Controlled with Pressure -Other TUNNEL @ 2 - 2. 3CM -Treatment Response Procedure Tolerated Well Pain Scale: 0-10 Numeric Is Patient Pain Free? Yes Yes Wound debrided: Left lower extremity Wound Grade/Stage: Stage III Type of Debridement: Excisional debridement Anesthesia Used: 4% Lidocaine Solution Depth: Down to and including healthy tissue, in the subcutaneous layer Percentage of wound debrided: 90 Instrument Used: - - 2 mm Tissue Removed: Slough and devitalized tissue Severity: Fat Layer Exposed Amount of bleeding with debridement: Mild Bleeding Controlled with: Pressure Patient tolerated procedure well Assessment/Plan Active Problems Non-healing surgical wound (Chronic) Left BKA Stump. Ulcer of left lower extremity with fat layer exposed (Chronic) Left BKA stump. Assessment: Same as above. Peripheral vascular Disease. Plan: Lateral ulcer is healed. Debridement done as documented above. Procedure was well-tolerated. Continue wound Vac at 150mmHg. Adaptic to lateral ulcer. Continue increased protein intake/supplements. She was advised to call with any concerns or questions. Follow-up in 1 week. This note was generated with [employer] dictation software. It may contain incorrect words, spelling, and punctuation that were not noted in checking the note before signing.
--- NOTE | 2018-06-01 12:19 | PN.PCM_ITS ---
(1) Non-healing surgical wound Status: Chronic Current Visit: Yes Code(s): T81.89XA - Other complications of procedures, not elsewhere classified, initial encounter Comment: Left BKA Stump. (2) Ulcer of left lower extremity with fat layer exposed Status: Chronic Current Visit: Yes Code(s): L97.922 - Non-pressure chronic ulcer of unspecified part of left lower leg with fat layer exposed Comment: Left BKA stump. (3) Peripheral vascular disease Status: Acute Current Visit: No Code(s): I73.9 - Peripheral vascular disease, unspecified (4) Status post below knee amputation of left lower extremity Status: Chronic Current Visit: No Code(s): Z89.512 - Acquired absence of left leg below knee Type of Wound Chief Complaint: Left BKA non healing post surgical wound and Ulcer. History of Wound: Ms. Mendenhall is a 52yo with PMH as stated above who presented to the wound center for management of her Left stump wound/ulcer. She is status post amputattion in February however, in she noted increased wound draingae from the stump site and subsequent opening of the wound. She was seen at the [facility] and had two debridements and wound vac placement. She has also been on a course of antibiotics. She denies any significnat concerns or feeling of unwell at this time. Progress of Wound: Improving. Has not used Vac since Wednesday due to problems with her Vac. - Physical Exam Vital Signs Temp Pulse Resp BP 96.2 F L 86 16 127/93 H 06/01/18 11:29 06/01/18 11:29 06/01/18 11:29 06/01/18 11:29 General: Alert, Oriented x3, Cooperative, No apparent distress HEENT: Atraumatic Oral: Moist Mucosa Neck: Supple Lungs: Normal air movement Abdomen: Non Tender Extremities: No cyanosis Skin: Ulcer/ Wound Wound Measurements and Assessment WC - Nurse 1 - General Ulcer Measurement Start: 05/25/18 10:42 Freq: Status: Active Protocol: Activity Type Activity Date Activity User E-Sign Co-Sign Detail Recorded Client Recorded Date Recorded By Document 06/01/18 11:29 RB [id number] 06/01/18 11:34 RB 06/01/18 11:29 Wound Center Nurse 1 [Ulcer Assessment] #2 Left LATERAL BKA -Combined with other wound No -Current Size (cm) - Length 0.1 -Current Size (cm) - Width 0.2 -Current Size (cm) - Depth 0.1 -Total Square Cm 0.02 -Tunneling No -Undermining/Tunneling No -Circular Undermining No -Classification - Thickness Full Thickness without Exposed Support Structure -Exudate Amt Small (1-33%) -Exudate Type Serosanguineous -Wound Margin Distinct, Outline Attached -Granulation Amt Large (67-100%) -Granulation Quality [place] -Slough/Fibrin Yes -Necrosis Amt Small (1-33%) -Necrotic Tissue Type Adherent Slough -Structure Exposed N/A -Texture (Mandy-wound Skin Appearance) Assessed -Moisture (Mandy-wound Skin Appearance Assessed ) -Color (Mandy-wound Skin Appearance) Assessed -Temperature (Mandy-wound Skin No Abnormality Appearance) (Pt Warm) -Tenderness on Palpation (Mandy-wound No Skin Appearance) -Ulcer Cleansing Rinsed/ Irrigated with Saline -Foul Odor after Cleansing No -Anesthetic Used 5% Lidocaine Gel #1 Left Medial BKA -Combined with other wound No -Current Size (cm) - Length 1.7 -Current Size (cm) - Width 2.8 -Current Size (cm) - Depth 0.5 -Total Square Cm 4.76 -Photo Taken No -Tunneling No -Undermining/Tunneling No -Circular Undermining No -Classification - Thickness Full Thickness without Exposed Support Structure -Exudate Amt Small (1-33%) -Exudate Type Serosanguineous -Wound Margin Distinct, Outline Attached -Granulation Amt Medium (34-66%) -Granulation Quality [place] -Slough/Fibrin Yes -Necrosis Amt Small (1-33%) -Necrotic Tissue Type Adherent Slough -Structure Exposed N/A -Texture (Mandy-wound Skin Appearance) Assessed -Moisture (Mandy-wound Skin Appearance Assessed ) -Color (Mandy-wound Skin Appearance) Assessed -Temperature (Mandy-wound Skin No Abnormality Appearance) (Pt Warm) -Tenderness on Palpation (Mandy-wound No Skin Appearance) -Ulcer Cleansing Rinsed/ Irrigated with Saline -Foul Odor after Cleansing No -Anesthetic Used 5% Lidocaine Gel WC - Nurse 2 - General Ulcer CM Notes Start: 05/25/18 10:42 Freq: Status: Active Protocol: Activity Type Activity Date Activity User E-Sign Co-Sign Detail Recorded Client Recorded Date Recorded By Document 06/01/18 11:59 [id number] 06/01/18 12:00 06/01/18 11:59 Wound Center Nurse 2 [Procedure/Treatment] #2 Left LATERAL BKA -Time 11:59 -Correct Patient Yes -Correct Side, Site, Position Yes -Correct Procedure Yes -Procedure Performed Yes -Type of Procedure Debridement -Clinical Debridement Subcutaneous -Post Debridement Size (cm) - Length 1.5 -Post Debridement Size (cm) - Width 2.5 -Post Debridement Size (cm) - Depth 0.5 -Total Square Cm 3.75 -Wound/Ulcer Outcome Not Healed -Ulcer Cleansing Rinsed/ Irrigated with Saline -Foul Odor after Cleansing No -Bioengineered Tissue No -Bleeding Controlled with NA -Treatment Response Procedure Tolerated Well [See Physician Procedure note for Specifics] Pain Scale: 0-10 Numeric [Pain] -Is Patient Pain Free? Yes Musculoskeletal: No Muscle Wasting Neurological: Cranial nerves II-XII grossly intact Psych/Mental Status: Normal Affect Debridement Note Post-Debridement Measurements/Treatment WC - Nurse 2 - General Ulcer CM Notes Start: 05/25/18 10:42 Freq: Status: Active Protocol: Activity Type Activity Date Activity User E-Sign Co-Sign Detail Recorded Client Recorded Date Recorded By Document 05/25/18 11:32 MW [id number] 05/25/18 11:37 MW Document 06/01/18 11:59 CS [id number] 06/01/18 12:00 05/25/18 06/01/18 11:32 11:59 Wound Center Nurse 2 #2 Left LATERAL BKA -Time 11:32 11:59 -Correct Patient Yes Yes -Correct Side, Site, Position Yes Yes -Correct Procedure Yes Yes -Procedure Performed Yes Yes -Type of Procedure Debridement Debridement -Clinical Debridement Subcutaneous Subcutaneous -Post Debridement Size (cm) - Length 0.1 1.5 -Post Debridement Size (cm) - Width 0.1 2.5 -Post Debridement Size (cm) - Depth 0.1 0.5 -Total Square Cm 0.01 3.75 -Wound/Ulcer Outcome Not Healed Not Healed -Ulcer Cleansing Rinsed/ Rinsed/ Irrigated with Irrigated with Saline Saline -Foul Odor after Cleansing No No -Bioengineered Tissue No No -Bleeding Controlled with Pressure NA -Other TUNNEL @2 - 2. 3CM -Treatment Response Procedure Procedure Tolerated Well Tolerated Well #1 Left Medial BKA -Time 11:33 -Correct Patient Yes -Correct Side, Site, Position Yes -Correct Procedure Yes -Procedure Performed Yes -Type of Procedure Debridement -Clinical Debridement Subcutaneous -Post Debridement Size (cm) - Length 2.0 -Post Debridement Size (cm) - Width 4.0 -Post Debridement Size (cm) - Depth 0.8 -Total Square Cm 8.00 -Ulcer Cleansing Wound Cleanser -Foul Odor after Cleansing No -Bioengineered Tissue No -Bleeding Controlled with Pressure -Other TUNNEL @ 2 - 2. 3CM -Treatment Response Procedure Tolerated Well Pain Scale: 0-10 Numeric Is Patient Pain Free? Yes Yes Wound debrided: Left lower extremity Wound Grade/Stage: Stage III Type of Debridement: Excisional debridement Anesthesia Used: 4% Lidocaine Solution Depth: Down to and including healthy tissue, in the subcutaneous layer Percentage of wound debrided: 90 Instrument Used: - - 2 mm Tissue Removed: Slough and devitalized tissue Severity: Fat Layer Exposed Amount of bleeding with debridement: Mild Bleeding Controlled with: Pressure Patient tolerated procedure well Assessment/Plan Active Problems Non-healing surgical wound (Chronic) Left BKA Stump. Ulcer of left lower extremity with fat layer exposed (Chronic) Left BKA stump. Assessment: Same as above. Peripheral vascular Disease. Plan: Lateral ulcer is healed. Debridement done as documented above. Procedure was well-tolerated. Continue wound Vac at 150mmHg. Adaptic to lateral ulcer. Continue increased protein intake/supplements. She was advised to call with any concerns or questions. Follow-up in 1 week. This note was generated with [employer] dictation software. It may contain incorrect words, spelling, and punctuation that were not noted in checking the note before signing.
[2018-06-08 11:10] VITALS: BP 125/66; PULSE 83; RESP 18; TEMP 36.8
--- NOTE | 2018-06-08 12:40 | PCM.WC.PN ---
(1) Non-healing surgical wound Status: Chronic Current Visit: Yes Code(s): T81.89XA - Other complications of procedures, not elsewhere classified, initial encounter Comment: Left BKA Stump. (2) Ulcer of left lower extremity with fat layer exposed Status: Chronic Current Visit: Yes Code(s): L97.922 - Non-pressure chronic ulcer of unspecified part of left lower leg with fat layer exposed Comment: Left BKA stump. (3) Peripheral vascular disease Status: Acute Current Visit: No Code(s): I73.9 - Peripheral vascular disease, unspecified (4) Status post below knee amputation of left lower extremity Status: Chronic Current Visit: No Code(s): Z89.512 - Acquired absence of left leg below knee Type of Wound Chief Complaint: Left BKA non healing post surgical wound and Ulcer. History of Wound: Ms. Mendenhall is a 52yo with PMH as stated above who presented to the wound center for management of her Left stump wound/ulcer. She is status post amputattion in February however, in she noted increased wound draingae from the stump site and subsequent opening of the wound. She was seen at the [facility] and had two debridements and wound vac placement. She has also been on a course of antibiotics. She denies any significnat concerns or feeling of unwell at this time. Progress of Wound: Improving. No new complaints at this time. - Physical Exam Vital Signs Temp Pulse Resp BP 98.3 F 83 18 125/66 H 06/08/18 11:10 06/08/18 11:10 06/08/18 11:10 06/08/18 11:10 General: Alert, Oriented x3, Cooperative, No apparent distress HEENT: Atraumatic Oral: Moist Mucosa Neck: Supple Lungs: Normal air movement Abdomen: Non Tender Extremities: No cyanosis Skin: Ulcer/ Wound Wound Measurements and Assessment WC - Nurse 1 - General Ulcer Measurement Start: 05/25/18 10:42 Freq: Status: Active Protocol: Activity Type Activity Date Activity User E-Sign Co-Sign Detail Recorded Client Recorded Date Recorded By Document 06/08/18 11:10 RB [id number] 06/08/18 11:28 RB 06/08/18 11:10 Wound Center Nurse 1 [Ulcer Assessment] #2 Left LATERAL BKA -Combined with other wound No -Current Size (cm) - Length 0.1 -Current Size (cm) - Width 0.1 -Current Size (cm) - Depth 0.1 -Total Square Cm 0.01 -Photo Taken No -Tunneling No -Undermining/Tunneling No -Circular Undermining No -Exudate Amt None Present (0 %) -Wound Margin Distinct, Outline Attached -Granulation Amt Large (67-100%) -Granulation Quality [place] -Slough/Fibrin Yes -Necrosis Amt None Present (0 %) -Structure Exposed N/A -Texture (Mandy-wound Skin Appearance) Assessed -Moisture (Mandy-wound Skin Appearance Assessed ) -Color (Mandy-wound Skin Appearance) Assessed -Temperature (Mandy-wound Skin No Abnormality Appearance) (Pt Warm) -Tenderness on Palpation (Mandy-wound No Skin Appearance) -Ulcer Cleansing Rinsed/ Irrigated with Saline -Foul Odor after Cleansing No -Anesthetic Used 5% Lidocaine Gel #1 Left Medial BKA -Combined with other wound No -Current Size (cm) - Length 0.8 -Current Size (cm) - Width 2 -Current Size (cm) - Depth 0.4 -Total Square Cm 1.6 -Photo Taken No -Tunneling Yes -Tunneling Position (O'clock) 2 -Tunneling Distance (cm) 1.4 -Undermining/Tunneling No -Circular Undermining No -Classification - Thickness Full Thickness without Exposed Support Structure -Exudate Amt Medium (34-66%) -Exudate Type Serosanguineous -Wound Margin Distinct, Outline Attached -Granulation Amt Large (67-100%) -Granulation Quality [place] -Slough/Fibrin Yes -Necrosis Amt Small (1-33%) -Necrotic Tissue Type Adherent Slough -Structure Exposed N/A -Texture (Mandy-wound Skin Appearance) Assessed -Moisture (Mandy-wound Skin Appearance Assessed ) -Color (Mandy-wound Skin Appearance) Assessed -Temperature (Mandy-wound Skin No Abnormality Appearance) (Pt Warm) -Tenderness on Palpation (Mandy-wound No Skin Appearance) -Ulcer Cleansing Rinsed/ Irrigated with Saline -Foul Odor after Cleansing No -Anesthetic Used 5% Lidocaine Gel WC - Nurse 2 - General Ulcer CM Notes Start: 05/25/18 10:42 Freq: Status: Active Protocol: Activity Type Activity Date Activity User E-Sign Co-Sign Detail Recorded Client Recorded Date Recorded By Document 06/08/18 11:43 MW [id number] 06/08/18 11:47 MW 06/08/18 11:43 Wound Center Nurse 2 [Procedure/Treatment] #2 Left LATERAL BKA -Time 11:44 -Correct Patient Yes -Correct Side, Site, Position Yes -Correct Procedure Yes -Procedure Performed No -Wound/Ulcer Outcome Healed- Epithelialized -Ulcer Cleansing Not Cleansed -Foul Odor after Cleansing No -Bleeding Controlled with NA -Treatment Response Procedure Tolerated Well #1 Left Medial BKA -Time 11:46 -Correct Patient Yes -Correct Side, Site, Position Yes -Correct Procedure Yes -Procedure Performed Yes -Type of Procedure Debridement -Clinical Debridement Subcutaneous -Post Debridement Size (cm) - Length 0.8 -Post Debridement Size (cm) - Width 1.8 -Post Debridement Size (cm) - Depth 0.5 -Total Square Cm 1.44 -Wound/Ulcer Outcome Not Healed -Ulcer Cleansing Rinsed/ Irrigated with Saline -Foul Odor after Cleansing No -Bioengineered Tissue No -Bleeding Controlled with Pressure -Treatment Response Procedure Tolerated Well [See Physician Procedure note for Specifics] Pain Scale: 0-10 Numeric [Pain] -Is Patient Pain Free? Yes Musculoskeletal: No Muscle Wasting Neurological: Cranial nerves II-XII grossly intact Psych/Mental Status: Normal Affect Debridement Note Post-Debridement Measurements/Treatment WC - Nurse 2 - General Ulcer CM Notes Start: 05/25/18 10:42 Freq: Status: Active Protocol: Activity Type Activity Date Activity User E-Sign Co-Sign Detail Recorded Client Recorded Date Recorded By Document 05/25/18 11:32 MW [id number] 05/25/18 11:37 MW Document 06/01/18 11:59 CS [id number] 06/01/18 12:00 CS Document 06/08/18 11:43 MW [id number] 06/08/18 11:47 MW 05/25/18 06/01/18 06/08/18 11:32 11:59 11:43 Wound Center Nurse 2 #2 Left LATERAL BKA -Time 11:32 11:59 11:44 -Correct Patient Yes Yes Yes -Correct Side, Site, Position Yes Yes Yes -Correct Procedure Yes Yes Yes -Procedure Performed Yes Yes No -Type of Procedure Debridement Debridement -Clinical Debridement Subcutaneous Subcutaneous -Post Debridement Size (cm) - Length 0.1 1.5 -Post Debridement Size (cm) - Width 0.1 2.5 -Post Debridement Size (cm) - Depth 0.1 0.5 -Total Square Cm 0.01 3.75 -Wound/Ulcer Outcome Not Healed Not Healed Healed- Epithelialized -Ulcer Cleansing Rinsed/ Rinsed/ Not Cleansed Irrigated with Irrigated with Saline Saline -Foul Odor after Cleansing No No No -Bioengineered Tissue No No -Bleeding Controlled with Pressure NA NA -Other TUNNEL @2 - 2. 3CM -Treatment Response Procedure Procedure Procedure Tolerated Well Tolerated Well Tolerated Well #1 Left Medial BKA -Time 11:33 11:46 -Correct Patient Yes Yes -Correct Side, Site, Position Yes Yes -Correct Procedure Yes Yes -Procedure Performed Yes Yes -Type of Procedure Debridement Debridement -Clinical Debridement Subcutaneous Subcutaneous -Post Debridement Size (cm) - Length 2.0 0.8 -Post Debridement Size (cm) - Width 4.0 1.8 -Post Debridement Size (cm) - Depth 0.8 0.5 -Total Square Cm 8.00 1.44 -Wound/Ulcer Outcome Not Healed -Ulcer Cleansing Wound Cleanser Rinsed/ Irrigated with Saline -Foul Odor after Cleansing No No -Bioengineered Tissue No No -Bleeding Controlled with Pressure Pressure -Other TUNNEL @ 2 - 2. 3CM -Treatment Response Procedure Procedure Tolerated Well Tolerated Well Pain Scale: 0-10 Numeric Is Patient Pain Free? Yes Yes Yes Wound debrided: Left lower extremity Wound Grade/Stage: Stage III Type of Debridement: Excisional debridement Anesthesia Used: 4% Lidocaine Solution Depth: Down to and including healthy tissue, in the subcutaneous layer Percentage of wound debrided: 100 Instrument Used: 3mm curette Tissue Removed: Slough and devitalized tissue Severity: Fat Layer Exposed Amount of bleeding with debridement: Mild Bleeding Controlled with: Pressure Patient tolerated procedure well Assessment/Plan Active Problems Non-healing surgical wound (Chronic) Left BKA Stump. Ulcer of left lower extremity with fat layer exposed (Chronic) Left BKA stump. Assessment: Same as above. Peripheral vascular Disease. Plan: Lateral ulcer stays healed. Better granulation of medial wound. Debridement done as documented above. Procedure was well-tolerated. Continue wound Vac at 150mmHg. Continue increased protein intake/supplements. She was advised to call with any concerns or questions. Follow-up in 1 week. This note was generated with [employer] software. It may contain incorrect words, spelling, and punctuation that were not noted in checking the note before signing.
--- NOTE | 2018-06-08 12:43 | PN.PCM_ITS ---
(1) Non-healing surgical wound Status: Chronic Current Visit: Yes Code(s): T81.89XA - Other complications of procedures, not elsewhere classified, initial encounter Comment: Left BKA Stump. (2) Ulcer of left lower extremity with fat layer exposed Status: Chronic Current Visit: Yes Code(s): L97.922 - Non-pressure chronic ulcer of unspecified part of left lower leg with fat layer exposed Comment: Left BKA stump. (3) Peripheral vascular disease Status: Acute Current Visit: No Code(s): I73.9 - Peripheral vascular disease, unspecified (4) Status post below knee amputation of left lower extremity Status: Chronic Current Visit: No Code(s): Z89.512 - Acquired absence of left leg below knee Type of Wound Chief Complaint: Left BKA non healing post surgical wound and Ulcer. History of Wound: Ms. Mendenhall is a 52yo with PMH as stated above who presented to the wound center for management of her Left stump wound/ulcer. She is status post amputattion in February however, in she noted increased wound draingae from the stump site and subsequent opening of the wound. She was seen at the [facility] and had two debridements and wound vac placement. She has also been on a course of antibiotics. She denies any significnat concerns or feeling of unwell at this time. Progress of Wound: Improving. No new complaints at this time. - Physical Exam Vital Signs Temp Pulse Resp BP 98.3 F 83 18 125/66 H 06/08/18 11:10 06/08/18 11:10 06/08/18 11:10 06/08/18 11:10 General: Alert, Oriented x3, Cooperative, No apparent distress HEENT: Atraumatic Oral: Moist Mucosa Neck: Supple Lungs: Normal air movement Abdomen: Non Tender Extremities: No cyanosis Skin: Ulcer/ Wound Wound Measurements and Assessment WC - Nurse 1 - General Ulcer Measurement Start: 05/25/18 10:42 Freq: Status: Active Protocol: Activity Type Activity Date Activity User E-Sign Co-Sign Detail Recorded Client Recorded Date Recorded By Document 06/08/18 11:10 RB [id number] 06/08/18 11:28 RB 06/08/18 11:10 Wound Center Nurse 1 [Ulcer Assessment] #2 Left LATERAL BKA -Combined with other wound No -Current Size (cm) - Length 0.1 -Current Size (cm) - Width 0.1 -Current Size (cm) - Depth 0.1 -Total Square Cm 0.01 -Photo Taken No -Tunneling No -Undermining/Tunneling No -Circular Undermining No -Exudate Amt None Present (0 %) -Wound Margin Distinct, Outline Attached -Granulation Amt Large (67-100%) -Granulation Quality [place] -Slough/Fibrin Yes -Necrosis Amt None Present (0 %) -Structure Exposed N/A -Texture (Mandy-wound Skin Appearance) Assessed -Moisture (Mandy-wound Skin Appearance Assessed ) -Color (Mandy-wound Skin Appearance) Assessed -Temperature (Mandy-wound Skin No Abnormality Appearance) (Pt Warm) -Tenderness on Palpation (Mandy-wound No Skin Appearance) -Ulcer Cleansing Rinsed/ Irrigated with Saline -Foul Odor after Cleansing No -Anesthetic Used 5% Lidocaine Gel #1 Left Medial BKA -Combined with other wound No -Current Size (cm) - Length 0.8 -Current Size (cm) - Width 2 -Current Size (cm) - Depth 0.4 -Total Square Cm 1.6 -Photo Taken No -Tunneling Yes -Tunneling Position (O'clock) 2 -Tunneling Distance (cm) 1.4 -Undermining/Tunneling No -Circular Undermining No -Classification - Thickness Full Thickness without Exposed Support Structure -Exudate Amt Medium (34-66%) -Exudate Type Serosanguineous -Wound Margin Distinct, Outline Attached -Granulation Amt Large (67-100%) -Granulation Quality [place] Red -Slough/Fibrin Yes -Necrosis Amt Small (1-33%) -Necrotic Tissue Type Adherent Slough -Structure Exposed N/A -Texture (Mandy-wound Skin Appearance) Assessed -Moisture (Mandy-wound Skin Appearance Assessed ) -Color (Mandy-wound Skin Appearance) Assessed -Temperature (Mandy-wound Skin No Abnormality Appearance) (Pt Warm) -Tenderness on Palpation (Mandy-wound No Skin Appearance) -Ulcer Cleansing Rinsed/ Irrigated with Saline -Foul Odor after Cleansing No -Anesthetic Used 5% Lidocaine Gel WC - Nurse 2 - General Ulcer CM Notes Start: 05/25/18 10:42 Freq: Status: Active Protocol: Activity Type Activity Date Activity User E-Sign Co-Sign Detail Recorded Client Recorded Date Recorded By Document 06/08/18 11:43 MW [id number] 06/08/18 11:47 MW 06/08/18 11:43 Wound Center Nurse 2 [Procedure/Treatment] #2 Left LATERAL BKA -Time 11:44 -Correct Patient Yes -Correct Side, Site, Position Yes -Correct Procedure Yes -Procedure Performed No -Wound/Ulcer Outcome Healed- Epithelialized -Ulcer Cleansing Not Cleansed -Foul Odor after Cleansing No -Bleeding Controlled with NA -Treatment Response Procedure Tolerated Well #1 Left Medial BKA -Time 11:46 -Correct Patient Yes -Correct Side, Site, Position Yes -Correct Procedure Yes -Procedure Performed Yes -Type of Procedure Debridement -Clinical Debridement Subcutaneous -Post Debridement Size (cm) - Length 0.8 -Post Debridement Size (cm) - Width 1.8 -Post Debridement Size (cm) - Depth 0.5 -Total Square Cm 1.44 -Wound/Ulcer Outcome Not Healed -Ulcer Cleansing Rinsed/ Irrigated with Saline -Foul Odor after Cleansing No -Bioengineered Tissue No -Bleeding Controlled with Pressure -Treatment Response Procedure Tolerated Well [See Physician Procedure note for Specifics] Pain Scale: 0-10 Numeric [Pain] -Is Patient Pain Free? Yes Musculoskeletal: No Muscle Wasting Neurological: Cranial nerves II-XII grossly intact Psych/Mental Status: Normal Affect Debridement Note Post-Debridement Measurements/Treatment WC - Nurse 2 - General Ulcer CM Notes Start: 05/25/18 10:42 Freq: Status: Active Protocol: Activity Type Activity Date Activity User E-Sign Co-Sign Detail Recorded Client Recorded Date Recorded By Document 05/25/18 11:32 MW [id number] 05/25/18 11:37 MW Document 06/01/18 11:59 CS [id number] 06/01/18 12:00 CS Document 06/08/18 11:43 MW [id number] 06/08/18 11:47 MW 05/25/18 06/01/18 06/08/18 11:32 11:59 11:43 Wound Center Nurse 2 #2 Left LATERAL BKA -Time 11:32 11:59 11:44 -Correct Patient Yes Yes Yes -Correct Side, Site, Position Yes Yes Yes -Correct Procedure Yes Yes Yes -Procedure Performed Yes Yes No -Type of Procedure Debridement Debridement -Clinical Debridement Subcutaneous Subcutaneous -Post Debridement Size (cm) - Length 0.1 1.5 -Post Debridement Size (cm) - Width 0.1 2.5 -Post Debridement Size (cm) - Depth 0.1 0.5 -Total Square Cm 0.01 3.75 -Wound/Ulcer Outcome Not Healed Not Healed Healed- Epithelialized -Ulcer Cleansing Rinsed/ Rinsed/ Not Cleansed Irrigated with Irrigated with Saline Saline -Foul Odor after Cleansing No No No -Bioengineered Tissue No No -Bleeding Controlled with Pressure NA NA -Other TUNNEL @2 - 2. 3CM -Treatment Response Procedure Procedure Procedure Tolerated Well Tolerated Well Tolerated Well #1 Left Medial BKA -Time 11:33 11:46 -Correct Patient Yes Yes -Correct Side, Site, Position Yes Yes -Correct Procedure Yes Yes -Procedure Performed Yes Yes -Type of Procedure Debridement Debridement -Clinical Debridement Subcutaneous Subcutaneous -Post Debridement Size (cm) - Length 2.0 0.8 -Post Debridement Size (cm) - Width 4.0 1.8 -Post Debridement Size (cm) - Depth 0.8 0.5 -Total Square Cm 8.00 1.44 -Wound/Ulcer Outcome Not Healed -Ulcer Cleansing Wound Cleanser Rinsed/ Irrigated with Saline -Foul Odor after Cleansing No No -Bioengineered Tissue No No -Bleeding Controlled with Pressure Pressure -Other TUNNEL @ 2 - 2. 3CM -Treatment Response Procedure Procedure Tolerated Well Tolerated Well Pain Scale: 0-10 Numeric Is Patient Pain Free? Yes Yes Yes Wound debrided: Left lower extremity Wound Grade/Stage: Stage III Type of Debridement: Excisional debridement Anesthesia Used: 4% Lidocaine Solution Depth: Down to and including healthy tissue, in the subcutaneous layer Percentage of wound debrided: 100 Instrument Used: 3mm curette Tissue Removed: Slough and devitalized tissue Severity: Fat Layer Exposed Amount of bleeding with debridement: Mild Bleeding Controlled with: Pressure Patient tolerated procedure well Assessment/Plan Active Problems Non-healing surgical wound (Chronic) Left BKA Stump. Ulcer of left lower extremity with fat layer exposed (Chronic) Left BKA stump. Assessment: Same as above. Peripheral vascular Disease. Plan: Lateral ulcer stays healed. Better granulation of medial wound. Debridement done as documented above. Procedure was well-tolerated. Continue wound Vac at 150mmHg. Continue increased protein intake/supplements. She was advised to call with any concerns or questions. Follow-up in 1 week. This note was generated with [employer] software. It may contain incorrect words, spelling, and punctuation that were not noted in checking the note before signing.
[2018-06-16 11:58] VITALS: BP 159/67; PULSE 85; RESP 18; TEMP 36.7
--- NOTE | 2018-06-16 12:18 | PCM.WC.PN ---
(1) Non-healing surgical wound Status: Chronic Current Visit: Yes Code(s): T81.89XA - Other complications of procedures, not elsewhere classified, initial encounter Comment: Left BKA Stump. (2) Ulcer of left lower extremity with fat layer exposed Status: Chronic Current Visit: Yes Code(s): L97.922 - Non-pressure chronic ulcer of unspecified part of left lower leg with fat layer exposed Comment: Left BKA stump. (3) Peripheral vascular disease Status: Acute Current Visit: No Code(s): I73.9 - Peripheral vascular disease, unspecified (4) Status post below knee amputation of left lower extremity Status: Chronic Current Visit: No Code(s): Z89.512 - Acquired absence of left leg below knee Type of Wound Chief Complaint: Left BKA non healing post surgical wound and Ulcer. History of Wound: Ms. Mendenhall is a 52yo with PMH as stated above who presented to the wound center for management of her Left stump wound/ulcer. She is status post amputattion in February however, in she noted increased wound draingae from the stump site and subsequent opening of the wound. She was seen at the [facility] and had two debridements and wound vac placement. She has also been on a course of antibiotics. She denies any significnat concerns or feeling of unwell at this time. Progress of Wound: Stable. No concerns at this time. - Physical Exam Vital Signs Temp Pulse Resp BP 98.0 F 85 18 159/67 H 06/16/18 11:58 06/16/18 11:58 06/16/18 11:58 06/16/18 11:58 General: Alert, Oriented x3, Cooperative, No apparent distress HEENT: Atraumatic, Normocephalic Oral: Moist Mucosa Neck: Supple Lungs: Normal air movement Abdomen: Non Tender Skin: Ulcer/ Wound Wound Measurements and Assessment WC - Nurse 1 - General Ulcer Measurement Start: 05/25/18 10:42 Freq: Status: Active Protocol: Activity Type Activity Date Activity User E-Sign Co-Sign Detail Recorded Client Recorded Date Recorded By Document 06/16/18 11:58 [id number] 06/16/18 12:01 06/16/18 11:58 Wound Center Nurse 1 [Ulcer Assessment] #1 Left Medial BKA -Combined with other wound No -Current Size (cm) - Length 0.9 -Current Size (cm) - Width 2.2 -Current Size (cm) - Depth 0.3 -Total Square Cm 1.98 -Tunneling Yes -Tunneling Position (O'clock) 2 -Tunneling Distance (cm) 3.0 -Undermining/Tunneling No -Circular Undermining No -Exudate Type Serosanguineous -Wound Margin Distinct, Outline Attached -Granulation Amt Medium (34-66%) -Granulation Quality Red -Slough/Fibrin Yes -Necrosis Amt None Present (0 %) -Structure Exposed None/Limited to Skin Breakdown -Texture (Mandy-wound Skin Appearance) Scarring -Moisture (Mandy-wound Skin Appearance No Abnormality ) Assessed -Color (Mandy-wound Skin Appearance) No Abnormality Assessed -Temperature (Mandy-wound Skin No Abnormality Appearance) (Pt Warm) -Tenderness on Palpation (Mandy-wound No Skin Appearance) -Ulcer Cleansing Rinsed/ Irrigated with Saline -Foul Odor after Cleansing No -Anesthetic Used 5% Lidocaine Gel [Edema Assessment] -Lower Limb Edema Present NA WC - Nurse 2 - General Ulcer CM Notes Start: 05/25/18 10:42 Freq: Status: Active Protocol: Activity Type Activity Date Activity User E-Sign Co-Sign Detail Recorded Client Recorded Date Recorded By Document 06/16/18 12:16 MW [id number] 06/16/18 12:18 MW 06/16/18 12:16 Wound Center Nurse 2 [Procedure/Treatment] #1 Left Medial BKA -Time 12:16 -Correct Patient Yes -Correct Side, Site, Position Yes -Correct Procedure Yes -Procedure Performed Yes -Type of Procedure Debridement -Clinical Debridement Subcutaneous -Post Debridement Size (cm) - Length 0.5 -Post Debridement Size (cm) - Width 2.0 -Post Debridement Size (cm) - Depth 0.3 -Total Square Cm 1.00 -Wound/Ulcer Outcome Not Healed -Ulcer Cleansing Rinsed/ Irrigated with Saline -Foul Odor after Cleansing No -Bioengineered Tissue No -Bleeding Controlled with Pressure -Other TUNNEL 2.2 CM -Offloading No -Treatment Response Procedure Tolerated Well [See Physician Procedure note for Specifics] Pain Scale: 0-10 Numeric [Pain] -Is Patient Pain Free? Yes Musculoskeletal: No Muscle Wasting Neurological: Cranial nerves II-XII grossly intact Psych/Mental Status: Normal Affect Debridement Note Post-Debridement Measurements/Treatment WC - Nurse 2 - General Ulcer CM Notes Start: 05/25/18 10:42 Freq: Status: Active Protocol: Activity Type Activity Date Activity User E-Sign Co-Sign Detail Recorded Client Recorded Date Recorded By Document 05/25/18 11:32 MW [id number] 05/25/18 11:37 MW Document 06/01/18 11:59 CS [id number] 06/01/18 12:00 CS Document 06/08/18 11:43 MW [id number] 06/08/18 11:47 MW Document 06/16/18 12:16 MW [id number] 06/16/18 12:18 MW 05/25/18 06/01/18 06/08/18 11:32 11:59 11:43 Wound Center Nurse 2 #2 Left LATERAL BKA -Time 11:32 11:59 11:44 -Correct Patient Yes Yes Yes -Correct Side, Site, Position Yes Yes Yes -Correct Procedure Yes Yes Yes -Procedure Performed Yes Yes No -Type of Procedure Debridement Debridement -Clinical Debridement Subcutaneous Subcutaneous -Post Debridement Size (cm) - Length 0.1 1.5 -Post Debridement Size (cm) - Width 0.1 2.5 -Post Debridement Size (cm) - Depth 0.1 0.5 -Total Square Cm 0.01 3.75 -Wound/Ulcer Outcome Not Healed Not Healed Healed- Epithelialized -Ulcer Cleansing Rinsed/ Rinsed/ Not Cleansed Irrigated with Irrigated with Saline Saline -Foul Odor after Cleansing No No No -Bioengineered Tissue No No -Bleeding Controlled with Pressure NA NA -Other TUNNEL @2 - 2. 3CM -Treatment Response Procedure Procedure Procedure Tolerated Well Tolerated Well Tolerated Well #1 Left Medial BKA -Time 11:33 11:46 -Correct Patient Yes Yes -Correct Side, Site, Position Yes Yes -Correct Procedure Yes Yes -Procedure Performed Yes Yes -Type of Procedure Debridement Debridement -Clinical Debridement Subcutaneous Subcutaneous -Post Debridement Size (cm) - Length 2.0 0.8 -Post Debridement Size (cm) - Width 4.0 1.8 -Post Debridement Size (cm) - Depth 0.8 0.5 -Total Square Cm 8.00 1.44 -Wound/Ulcer Outcome Not Healed -Ulcer Cleansing Wound Cleanser Rinsed/ Irrigated with Saline -Foul Odor after Cleansing No No -Bioengineered Tissue No No -Bleeding Controlled with Pressure Pressure -Other TUNNEL @ 2 - 2. 3CM -Offloading -Treatment Response Procedure Procedure Tolerated Well Tolerated Well Pain Scale: 0-10 Numeric Is Patient Pain Free? Yes Yes Yes 06/16/18 12:16 Wound Center Nurse 2 #2 Left LATERAL BKA -Time -Correct Patient -Correct Side, Site, Position -Correct Procedure -Procedure Performed -Type of Procedure -Clinical Debridement -Post Debridement Size (cm) - Length -Post Debridement Size (cm) - Width -Post Debridement Size (cm) - Depth -Total Square Cm -Wound/Ulcer Outcome -Ulcer Cleansing -Foul Odor after Cleansing -Bioengineered Tissue -Bleeding Controlled with -Other -Treatment Response #1 Left Medial BKA -Time 12:16 -Correct Patient Yes -Correct Side, Site, Position Yes -Correct Procedure Yes -Procedure Performed Yes -Type of Procedure Debridement -Clinical Debridement Subcutaneous -Post Debridement Size (cm) - Length 0.5 -Post Debridement Size (cm) - Width 2.0 -Post Debridement Size (cm) - Depth 0.3 -Total Square Cm 1.00 -Wound/Ulcer Outcome Not Healed -Ulcer Cleansing Rinsed/ Irrigated with Saline -Foul Odor after Cleansing No -Bioengineered Tissue No -Bleeding Controlled with Pressure -Other TUNNEL 2.2 CM -Offloading No -Treatment Response Procedure Tolerated Well Pain Scale: 0-10 Numeric Is Patient Pain Free? Yes Wound debrided: Left Lower extremity stump Wound Grade/Stage: Stage III Type of Debridement: Excisional debridement Anesthesia Used: 4% Lidocaine Solution, 5% Lidocaine Gel Depth: Down to and including healthy tissue, in the subcutaneous layer Percentage of wound debrided: 100 Instrument Used: 3mm curette Tissue Removed: Biofilm and devitalized tissue Severity: Fat Layer Exposed Amount of bleeding with debridement: Mild Bleeding Controlled with: Pressure Patient tolerated procedure well Assessment/Plan Active Problems Non-healing surgical wound (Chronic) Left BKA Stump. Ulcer of left lower extremity with fat layer exposed (Chronic) Left BKA stump. Assessment: Same as above. Peripheral vascular Disease. Plan: Stable. No significant change in the past week. Debridement done as documented above. Procedure was well-tolerated. Continue wound Vac at 150mmHg. Continue increased protein intake/supplements. She was advised to call with any concerns or questions. Follow-up in 2 weeks. Continue wound vac change [place] and wednesdays by [facility]. This note was generated with [employer] dictation software. It may contain incorrect words, spelling, and punctuation that were not noted in checking the note before signing.
--- NOTE | 2018-06-16 12:21 | PN.PCM_ITS ---
(1) Non-healing surgical wound Status: Chronic Current Visit: Yes Code(s): T81.89XA - Other complications of procedures, not elsewhere classified, initial encounter Comment: Left BKA Stump. (2) Ulcer of left lower extremity with fat layer exposed Status: Chronic Current Visit: Yes Code(s): L97.922 - Non-pressure chronic ulcer of unspecified part of left lower leg with fat layer exposed Comment: Left BKA stump. (3) Peripheral vascular disease Status: Acute Current Visit: No Code(s): I73.9 - Peripheral vascular disease, unspecified (4) Status post below knee amputation of left lower extremity Status: Chronic Current Visit: No Code(s): Z89.512 - Acquired absence of left leg below knee Type of Wound Chief Complaint: Left BKA non healing post surgical wound and Ulcer. History of Wound: Ms. Mendenhall is a 52yo with PMH as stated above who presented to the wound center for management of her Left stump wound/ulcer. She is status post amputattion in February however, in she noted increased wound draingae from the stump site and subsequent opening of the wound. She was seen at the [facility] and had two debridements and wound vac placement. She has also been on a course of antibiotics. She denies any significnat concerns or feeling of unwell at this time. Progress of Wound: Stable. No concerns at this time. - Physical Exam Vital Signs Temp Pulse Resp BP 98.0 F 85 18 159/67 H 06/16/18 11:58 06/16/18 11:58 06/16/18 11:58 06/16/18 11:58 General: Alert, Oriented x3, Cooperative, No apparent distress HEENT: Atraumatic, Normocephalic Oral: Moist Mucosa Neck: Supple Lungs: Normal air movement Abdomen: Non Tender Skin: Ulcer/ Wound Wound Measurements and Assessment WC - Nurse 1 - General Ulcer Measurement Start: 05/25/18 10:42 Freq: Status: Active Protocol: Activity Type Activity Date Activity User E-Sign Co-Sign Detail Recorded Client Recorded Date Recorded By Document 06/16/18 11:58 [id number] 06/16/18 12:01 06/16/18 11:58 Wound Center Nurse 1 [Ulcer Assessment] #1 Left Medial BKA -Combined with other wound No -Current Size (cm) - Length 0.9 -Current Size (cm) - Width 2.2 -Current Size (cm) - Depth 0.3 -Total Square Cm 1.98 -Tunneling Yes -Tunneling Position (O'clock) 2 -Tunneling Distance (cm) 3.0 -Undermining/Tunneling No -Circular Undermining No -Exudate Type Serosanguineous -Wound Margin Distinct, Outline Attached -Granulation Amt Medium (34-66%) -Granulation Quality Red -Slough/Fibrin Yes -Necrosis Amt None Present (0 %) -Structure Exposed None/Limited to Skin Breakdown -Texture (Mandy-wound Skin Appearance) Scarring -Moisture (Mandy-wound Skin Appearance No Abnormality ) Assessed -Color (Mandy-wound Skin Appearance) No Abnormality Assessed -Temperature (Mandy-wound Skin No Abnormality Appearance) (Pt Warm) -Tenderness on Palpation (Mandy-wound No Skin Appearance) -Ulcer Cleansing Rinsed/ Irrigated with Saline -Foul Odor after Cleansing No -Anesthetic Used 5% Lidocaine Gel [Edema Assessment] -Lower Limb Edema Present NA WC - Nurse 2 - General Ulcer CM Notes Start: 05/25/18 10:42 Freq: Status: Active Protocol: Activity Type Activity Date Activity User E-Sign Co-Sign Detail Recorded Client Recorded Date Recorded By Document 06/16/18 12:16 MW [id number] 06/16/18 12:18 MW 06/16/18 12:16 Wound Center Nurse 2 [Procedure/Treatment] #1 Left Medial BKA -Time 12:16 -Correct Patient Yes -Correct Side, Site, Position Yes -Correct Procedure Yes -Procedure Performed Yes -Type of Procedure Debridement -Clinical Debridement Subcutaneous -Post Debridement Size (cm) - Length 0.5 -Post Debridement Size (cm) - Width 2.0 -Post Debridement Size (cm) - Depth 0.3 -Total Square Cm 1.00 -Wound/Ulcer Outcome Not Healed -Ulcer Cleansing Rinsed/ Irrigated with Saline -Foul Odor after Cleansing No -Bioengineered Tissue No -Bleeding Controlled with Pressure -Other TUNNEL 2.2 CM -Offloading No -Treatment Response Procedure Tolerated Well [See Physician Procedure note for Specifics] Pain Scale: 0-10 Numeric [Pain] -Is Patient Pain Free? Yes Musculoskeletal: No Muscle Wasting Neurological: Cranial nerves II-XII grossly intact Psych/Mental Status: Normal Affect Debridement Note Post-Debridement Measurements/Treatment WC - Nurse 2 - General Ulcer CM Notes Start: 05/25/18 10:42 Freq: Status: Active Protocol: Activity Type Activity Date Activity User E-Sign Co-Sign Detail Recorded Client Recorded Date Recorded By Document 05/25/18 11:32 MW [id number] 05/25/18 11:37 MW Document 06/01/18 11:59 CS [id number] 06/01/18 12:00 CS Document 06/08/18 11:43 MW [id number] 06/08/18 11:47 MW Document 06/16/18 12:16 MW [id number] 06/16/18 12:18 MW 05/25/18 06/01/18 06/08/18 11:32 11:59 11:43 Wound Center Nurse 2 #2 Left LATERAL BKA -Time 11:32 11:59 11:44 -Correct Patient Yes Yes Yes -Correct Side, Site, Position Yes Yes Yes -Correct Procedure Yes Yes Yes -Procedure Performed Yes Yes No -Type of Procedure Debridement Debridement -Clinical Debridement Subcutaneous Subcutaneous -Post Debridement Size (cm) - Length 0.1 1.5 -Post Debridement Size (cm) - Width 0.1 2.5 -Post Debridement Size (cm) - Depth 0.1 0.5 -Total Square Cm 0.01 3.75 -Wound/Ulcer Outcome Not Healed Not Healed Healed- Epithelialized -Ulcer Cleansing Rinsed/ Rinsed/ Not Cleansed Irrigated with Irrigated with Saline Saline -Foul Odor after Cleansing No No No -Bioengineered Tissue No No -Bleeding Controlled with Pressure NA NA -Other TUNNEL @2 - 2. 3CM -Treatment Response Procedure Procedure Procedure Tolerated Well Tolerated Well Tolerated Well #1 Left Medial BKA -Time 11:33 11:46 -Correct Patient Yes Yes -Correct Side, Site, Position Yes Yes -Correct Procedure Yes Yes -Procedure Performed Yes Yes -Type of Procedure Debridement Debridement -Clinical Debridement Subcutaneous Subcutaneous -Post Debridement Size (cm) - Length 2.0 0.8 -Post Debridement Size (cm) - Width 4.0 1.8 -Post Debridement Size (cm) - Depth 0.8 0.5 -Total Square Cm 8.00 1.44 -Wound/Ulcer Outcome Not Healed -Ulcer Cleansing Wound Cleanser Rinsed/ Irrigated with Saline -Foul Odor after Cleansing No No -Bioengineered Tissue No No -Bleeding Controlled with Pressure Pressure -Other TUNNEL @ 2 - 2. 3CM -Offloading -Treatment Response Procedure Procedure Tolerated Well Tolerated Well Pain Scale: 0-10 Numeric Is Patient Pain Free? Yes Yes Yes 06/16/18 12:16 Wound Center Nurse 2 #2 Left LATERAL BKA -Time -Correct Patient -Correct Side, Site, Position -Correct Procedure -Procedure Performed -Type of Procedure -Clinical Debridement -Post Debridement Size (cm) - Length -Post Debridement Size (cm) - Width -Post Debridement Size (cm) - Depth -Total Square Cm -Wound/Ulcer Outcome -Ulcer Cleansing -Foul Odor after Cleansing -Bioengineered Tissue -Bleeding Controlled with -Other -Treatment Response #1 Left Medial BKA -Time 12:16 -Correct Patient Yes -Correct Side, Site, Position Yes -Correct Procedure Yes -Procedure Performed Yes -Type of Procedure Debridement -Clinical Debridement Subcutaneous -Post Debridement Size (cm) - Length 0.5 -Post Debridement Size (cm) - Width 2.0 -Post Debridement Size (cm) - Depth 0.3 -Total Square Cm 1.00 -Wound/Ulcer Outcome Not Healed -Ulcer Cleansing Rinsed/ Irrigated with Saline -Foul Odor after Cleansing No -Bioengineered Tissue No -Bleeding Controlled with Pressure -Other TUNNEL 2.2 CM -Offloading No -Treatment Response Procedure Tolerated Well Pain Scale: 0-10 Numeric Is Patient Pain Free? Yes Wound debrided: Left Lower extremity stump Wound Grade/Stage: Stage III Type of Debridement: Excisional debridement Anesthesia Used: 4% Lidocaine Solution, 5% Lidocaine Gel Depth: Down to and including healthy tissue, in the subcutaneous layer Percentage of wound debrided: 100 Instrument Used: 3mm curette Tissue Removed: Biofilm and devitalized tissue Severity: Fat Layer Exposed Amount of bleeding with debridement: Mild Bleeding Controlled with: Pressure Patient tolerated procedure well Assessment/Plan Active Problems Non-healing surgical wound (Chronic) Left BKA Stump. Ulcer of left lower extremity with fat layer exposed (Chronic) Left BKA stump. Assessment: Same as above. Peripheral vascular Disease. Plan: Stable. No significant change in the past week. Debridement done as documented above. Procedure was well-tolerated. Continue wound Vac at 150mmHg. Continue increased protein intake/supplements. She was advised to call with any concerns or questions. Follow-up in 2 weeks. Continue wound vac change [place] and wednesdays by [facility]. This note was generated with [employer] dictation software. It may contain incorrect words, spelling, and punctuation that were not noted in checking the note before signing.
== END 2018-06-17 23:59 ==
LOC: WC 11:45
PROVIDERS: Family Provider Family Medicine; PCP Family Medicine; Visit Provider Internal Medicine
DX: T87.81 Dehiscence of amputation stump (principal); Y83.8 Other surgical procedures as the cause of abnormal reaction of the patient, or of later complication, without mention of misadventure at the time of the procedure; I73.9 Peripheral vascular disease, unspecified; Z89.512 Acquired absence of left leg below knee
CPT/HCPCS: 11042; 97605; 97607

== ENCOUNTER 2018-07-14 11:15 | Outpatient (RCR) | payer MEDICARE, SELFPAY ==
[2018-06-18 01:42] VITALS: BP 159/67; PULSE 85; RESP 18; TEMP 36.7
[2018-06-30 11:03] VITALS: BP 136/80; PULSE 100; RESP 20; TEMP 36.9; BMI 28.2
--- NOTE | 2018-06-30 13:04 | PCM.WC.PN ---
(1) Non-healing surgical wound Status: Chronic Current Visit: Yes Code(s): T81.89XA - Other complications of procedures, not elsewhere classified, initial encounter Comment: Left BKA Stump. (2) Ulcer of left lower extremity with fat layer exposed Status: Chronic Current Visit: Yes Code(s): L97.922 - Non-pressure chronic ulcer of unspecified part of left lower leg with fat layer exposed Comment: Left BKA stump. Type of Wound Chief Complaint: Left BKA non healing post surgical wound and Ulcer. History of Wound: Ms. Mendenhall is a 52yo with PMH as stated above who presented to the wound center for management of her Left stump wound/ulcer. She is status post amputattion in February however, in she noted increased wound draingae from the stump site and subsequent opening of the wound. She was seen at the [facility] and had two debridements and wound vac placement. She has also been on a course of antibiotics. She denies any significnat concerns or feeling of unwell at this time. Progress of Wound: Improving. No new complaints at this time. - Physical Exam Vital Signs Temp Pulse Resp BP 98.4 F 100 20 H 136/80 H 06/30/18 11:03 06/30/18 11:03 06/30/18 11:03 06/30/18 11:03 General: Alert, Oriented x3, Cooperative, No apparent distress HEENT: Atraumatic, Normocephalic Oral: Moist Mucosa Neck: Supple Lungs: Normal air movement Extremities: No cyanosis Skin: Ulcer/ Wound Wound Measurements and Assessment WC - Nurse 1 - General Ulcer Measurement Start: 06/30/18 11:03 Freq: Status: Active Protocol: Activity Type Activity Date Activity User E-Sign Co-Sign Detail Recorded Client Recorded Date Recorded By Document 06/30/18 11:03 RB [id number] 06/30/18 11:06 RB 06/30/18 11:03 Wound Center Nurse 1 [Ulcer Assessment] #1 Left Medial BKA -Combined with other wound No -Current Size (cm) - Length 0.4 -Current Size (cm) - Width 0.5 -Current Size (cm) - Depth 1.4 -Total Square Cm 0.20 -Tunneling Yes -Tunneling Position (O'clock) 2 -Tunneling Distance (cm) 1.4 -Undermining/Tunneling No -Circular Undermining No -Exudate Amt Small (1-33%) -Exudate Type Serosanguineous -Wound Margin Distinct, Outline Attached -Granulation Amt Large (67-100%) -Granulation Quality [place] -Necrosis Amt Small (1-33%) -Necrotic Tissue Type Adherent Slough -Structure Exposed N/A -Texture (Mandy-wound Skin Appearance) Assessed -Moisture (Mandy-wound Skin Appearance Assessed ) -Color (Mandy-wound Skin Appearance) Assessed -Temperature (Mandy-wound Skin No Abnormality Appearance) (Pt Warm) -Tenderness on Palpation (Mandy-wound No Skin Appearance) -Ulcer Cleansing Rinsed/ Irrigated with Saline -Foul Odor after Cleansing No -Anesthetic Used 4% Lidocaine Solution WC - Nurse 2 - General Ulcer CM Notes Start: 06/30/18 11:03 Freq: Status: Active Protocol: Activity Type Activity Date Activity User E-Sign Co-Sign Detail Recorded Client Recorded Date Recorded By Document 06/30/18 11:36 MW [id number] 06/30/18 11:40 MW 06/30/18 11:36 Wound Center Nurse 2 [Procedure/Treatment] -Time 11:36 -Correct Patient Yes -Correct Side, Site, Position Yes -Correct Procedure Yes -Procedure Performed Yes -Type of Procedure Debridement -Clinical Debridement Subcutaneous -Post Debridement Size (cm) - Length 0.5 -Post Debridement Size (cm) - Width 0.5 -Post Debridement Size (cm) - Depth 0.9 -Total Square Cm 0.25 -Wound/Ulcer Outcome Not Healed -Ulcer Cleansing Rinsed/ Irrigated with Saline -Foul Odor after Cleansing No -Bioengineered Tissue No -Bleeding Controlled with Pressure -Offloading No -Treatment Response Procedure Tolerated Well [See Physician Procedure note for Specifics] Pain Scale: 0-10 Numeric [Pain] -Is Patient Pain Free? Yes Musculoskeletal: No Muscle Wasting Neurological: Cranial nerves II-XII grossly intact Psych/Mental Status: Normal Affect Debridement Note Post-Debridement Measurements/Treatment WC - Nurse 2 - General Ulcer CM Notes Start: 06/30/18 11:03 Freq: Status: Active Protocol: Activity Type Activity Date Activity User E-Sign Co-Sign Detail Recorded Client Recorded Date Recorded By Document 06/30/18 11:36 MW [id number] 06/30/18 11:40 MW 06/30/18 11:36 Wound Center Nurse 2 #1 Left Medial BKA -Time 11:36 -Correct Patient Yes -Correct Side, Site, Position Yes -Correct Procedure Yes -Procedure Performed Yes -Type of Procedure Debridement -Clinical Debridement Subcutaneous -Post Debridement Size (cm) - Length 0.5 -Post Debridement Size (cm) - Width 0.5 -Post Debridement Size (cm) - Depth 0.9 -Total Square Cm 0.25 -Wound/Ulcer Outcome Not Healed -Ulcer Cleansing Rinsed/ Irrigated with Saline -Foul Odor after Cleansing No -Bioengineered Tissue No -Bleeding Controlled with Pressure -Offloading No -Treatment Response Procedure Tolerated Well Pain Scale: 0-10 Numeric Is Patient Pain Free? Yes Wound debrided: Left stump Wound Grade/Stage: Stage II Type of Debridement: Excisional debridement Anesthesia Used: 4% Lidocaine Solution Depth: Down to and including healthy tissue, in the subcutaneous layer Percentage of wound debrided: 100 Instrument Used: 3mm curette Tissue Removed: Slough and devitalized tissue Severity: Fat Layer Exposed Amount of bleeding with debridement: Mild Bleeding Controlled with: Pressure Patient tolerated procedure well Assessment/Plan Active Problems Non-healing surgical wound (Chronic) Left BKA Stump. Ulcer of left lower extremity with fat layer exposed (Chronic) Left BKA stump. Assessment: Same as above. Peripheral vascular Disease. Plan: Wound now down to what was initially the tunnel. Improving depth. Debridement done as documented above, procedure was well-tolerated. Will now switch to a SNAP vac as patient is becoming intolerant of a bigger wound VAC. Follow-up on Wednesday for nurse visit. Continue increased protein intake/supplements. She was advised to call with any concerns or questions. Follow-up with me in 1 week. This note was generated with edulioation software. It may contain incorrect words, spelling, and punctuation that were not noted in checking the note before signing.
--- NOTE | 2018-06-30 13:07 | PN.PCM_ITS ---
(1) Non-healing surgical wound Status: Chronic Current Visit: Yes Code(s): T81.89XA - Other complications of procedures, not elsewhere classified, initial encounter Comment: Left BKA Stump. (2) Ulcer of left lower extremity with fat layer exposed Status: Chronic Current Visit: Yes Code(s): L97.922 - Non-pressure chronic ulcer of unspecified part of left lower leg with fat layer exposed Comment: Left BKA stump. Type of Wound Chief Complaint: Left BKA non healing post surgical wound and Ulcer. History of Wound: Ms. Mendenhall is a 52yo with PMH as stated above who presented to the wound center for management of her Left stump wound/ulcer. She is status post amputattion in February however, in she noted increased wound draingae from the stump site and subsequent opening of the wound. She was seen at the [facility] and had two debridements and wound vac placement. She has also been on a course of antibiotics. She denies any significnat concerns or feeling of unwell at this time. Progress of Wound: Improving. No new complaints at this time. - Physical Exam Vital Signs Temp Pulse Resp BP 98.4 F 100 20 H 136/80 H 06/30/18 11:03 06/30/18 11:03 06/30/18 11:03 06/30/18 11:03 General: Alert, Oriented x3, Cooperative, No apparent distress HEENT: Atraumatic, Normocephalic Oral: Moist Mucosa Neck: Supple Lungs: Normal air movement Extremities: No cyanosis Skin: Ulcer/ Wound Wound Measurements and Assessment WC - Nurse 1 - General Ulcer Measurement Start: 06/30/18 11:03 Freq: Status: Active Protocol: Activity Type Activity Date Activity User E-Sign Co-Sign Detail Recorded Client Recorded Date Recorded By Document 06/30/18 11:03 RB [id number] 06/30/18 11:06 RB 06/30/18 11:03 Wound Center Nurse 1 [Ulcer Assessment] #1 Left Medial BKA -Combined with other wound No -Current Size (cm) - Length 0.4 -Current Size (cm) - Width 0.5 -Current Size (cm) - Depth 1.4 -Total Square Cm 0.20 -Tunneling Yes -Tunneling Position (O'clock) 2 -Tunneling Distance (cm) 1.4 -Undermining/Tunneling No -Circular Undermining No -Exudate Amt Small (1-33%) -Exudate Type Serosanguineous -Wound Margin Distinct, Outline Attached -Granulation Amt Large (67-100%) -Granulation Quality [place] -Necrosis Amt Small (1-33%) -Necrotic Tissue Type Adherent Slough -Structure Exposed N/A -Texture (Mandy-wound Skin Appearance) Assessed -Moisture (Mandy-wound Skin Appearance Assessed ) -Color (Mandy-wound Skin Appearance) Assessed -Temperature (Mandy-wound Skin No Abnormality Appearance) (Pt Warm) -Tenderness on Palpation (Madny-wound No Skin Appearance) -Ulcer Cleansing Rinsed/ Irrigated with Saline -Foul Odor after Cleansing No -Anesthetic Used 4% Lidocaine Solution WC - Nurse 2 - General Ulcer CM Notes Start: 06/30/18 11:03 Freq: Status: Active Protocol: Activity Type Activity Date Activity User E-Sign Co-Sign Detail Recorded Client Recorded Date Recorded By Document 06/30/18 11:36 MW [id number] 06/30/18 11:40 MW 06/30/18 11:36 Wound Center Nurse 2 [Procedure/Treatment] -Time 11:36 -Correct Patient Yes -Correct Side, Site, Position Yes -Correct Procedure Yes -Procedure Performed Yes -Type of Procedure Debridement -Clinical Debridement Subcutaneous -Post Debridement Size (cm) - Length 0.5 -Post Debridement Size (cm) - Width 0.5 -Post Debridement Size (cm) - Depth 0.9 -Total Square Cm 0.25 -Wound/Ulcer Outcome Not Healed -Ulcer Cleansing Rinsed/ Irrigated with Saline -Foul Odor after Cleansing No -Bioengineered Tissue No -Bleeding Controlled with Pressure -Offloading No -Treatment Response Procedure Tolerated Well [See Physician Procedure note for Specifics] Pain Scale: 0-10 Numeric [Pain] -Is Patient Pain Free? Yes Musculoskeletal: No Muscle Wasting Neurological: Cranial nerves II-XII grossly intact Psych/Mental Status: Normal Affect Debridement Note Post-Debridement Measurements/Treatment WC - Nurse 2 - General Ulcer CM Notes Start: 06/30/18 11:03 Freq: Status: Active Protocol: Activity Type Activity Date Activity User E-Sign Co-Sign Detail Recorded Client Recorded Date Recorded By Document 06/30/18 11:36 MW [id number] 06/30/18 11:40 MW 06/30/18 11:36 Wound Center Nurse 2 #1 Left Medial BKA -Time 11:36 -Correct Patient Yes -Correct Side, Site, Position Yes -Correct Procedure Yes -Procedure Performed Yes -Type of Procedure Debridement -Clinical Debridement Subcutaneous -Post Debridement Size (cm) - Length 0.5 -Post Debridement Size (cm) - Width 0.5 -Post Debridement Size (cm) - Depth 0.9 -Total Square Cm 0.25 -Wound/Ulcer Outcome Not Healed -Ulcer Cleansing Rinsed/ Irrigated with Saline -Foul Odor after Cleansing No -Bioengineered Tissue No -Bleeding Controlled with Pressure -Offloading No -Treatment Response Procedure Tolerated Well Pain Scale: 0-10 Numeric Is Patient Pain Free? Yes Wound debrided: Left stump Wound Grade/Stage: Stage II Type of Debridement: Excisional debridement Anesthesia Used: 4% Lidocaine Solution Depth: Down to and including healthy tissue, in the subcutaneous layer Percentage of wound debrided: 100 Instrument Used: 3mm curette Tissue Removed: Slough and devitalized tissue Severity: Fat Layer Exposed Amount of bleeding with debridement: Mild Bleeding Controlled with: Pressure Patient tolerated procedure well Assessment/Plan Active Problems Non-healing surgical wound (Chronic) Left BKA Stump. Ulcer of left lower extremity with fat layer exposed (Chronic) Left BKA stump. Assessment: Same as above. Peripheral vascular Disease. Plan: Wound now down to what was initially the tunnel. Improving depth. Debridement done as documented above, procedure was well-tolerated. Will now switch to a SNAP vac as patient is becoming intolerant of a bigger wound VAC. Follow-up on Wednesday for nurse visit. Continue increased protein intake/supplements. She was advised to call with any concerns or questions. Follow-up with me in 1 week. This note was generated with [employer] software. It may contain incorrect words, spelling, and punctuation that were not noted in checking the note before signing.
[2018-07-04 11:47] VITALS: BP 134/65; PULSE 85; RESP 18; TEMP 36.2; BMI 28.2
[2018-07-07 11:20] VITALS: BP 127/74; PULSE 75; RESP 16; TEMP 36.4; BMI 28.2
--- NOTE | 2018-07-07 11:36 | PCM.WC.PN ---
(1) Non-healing surgical wound Status: Chronic Current Visit: Yes Code(s): T81.89XA - Other complications of procedures, not elsewhere classified, initial encounter Comment: Left BKA Stump. (2) Ulcer of left lower extremity with fat layer exposed Status: Chronic Current Visit: Yes Code(s): L97.922 - Non-pressure chronic ulcer of unspecified part of left lower leg with fat layer exposed Comment: Left BKA stump. Type of Wound Chief Complaint: Left BKA non healing post surgical wound and Ulcer. History of Wound: Ms. Mendenhall is a 52yo with PMH as stated above who presented to the wound center for management of her Left stump wound/ulcer. She is status post amputattion in February however, in she noted increased wound draingae from the stump site and subsequent opening of the wound. She was seen at the [facility] and had two debridements and wound vac placement. She has also been on a course of antibiotics. She denies any significnat concerns or feeling of unwell at this time. Progress of Wound: Improving. No new complaints at this time. - Physical Exam Vital Signs Temp Pulse Resp BP 97.5 F L 75 16 127/74 H 07/07/18 11:20 07/07/18 11:20 07/07/18 11:20 07/07/18 11:20 General: Alert, Oriented x3, Cooperative, No apparent distress HEENT: Atraumatic, Normocephalic Oral: Moist Mucosa Neck: Supple Lungs: Normal air movement Abdomen: Non Tender Extremities: No cyanosis Skin: Ulcer/ Wound Wound Measurements and Assessment WC - Nurse 1 - General Ulcer Measurement Start: 06/30/18 11:03 Freq: Status: Active Protocol: Activity Type Activity Date Activity User E-Sign Co-Sign Detail Recorded Client Recorded Date Recorded By Document 07/04/18 11:47 DL [id number] 07/04/18 12:02 DL Document 07/07/18 11:20 MW [id number] 07/07/18 11:26 MW 07/04/18 07/07/18 11:47 11:20 Wound Center Nurse 1 [Ulcer Assessment] #1 Left Medial BKA -Combined with other wound No -Current Size (cm) - Length 0.4 -Current Size (cm) - Width 0.5 -Current Size (cm) - Depth 0.5 -Total Square Cm 0.20 -Photo Taken No No -Epithelialization None Present -Tunneling No -Undermining/Tunneling No -Circular Undermining No -Exudate Amt None Present (0 Small (1-33%) %) -Exudate Type Serosanguineous -Wound Margin Distinct, Distinct, Outline Outline Attached Attached -Granulation Amt Large (67-100%) Large (67-100%) -Granulation Quality [place] -Slough/Fibrin Yes -Necrosis Amt None Present (0 Small (1-33%) %) -Necrotic Tissue Type Adherent Slough -Structure Exposed N/A N/A -Texture (Mandy-wound Skin Appearance) Scarring Assessed Scarring -Moisture (Mandy-wound Skin Appearance No Abnormality No Abnormality ) Assessed -Color (Mandy-wound Skin Appearance) No Abnormality No Abnormality Assessed -Temperature (Mandy-wound Skin No Abnormality No Abnormality Appearance) (Pt Warm) (Pt Warm) -Tenderness on Palpation (Mandy-wound No No Skin Appearance) -Ulcer Cleansing Wound Cleanser Rinsed/ Irrigated with Saline -Foul Odor after Cleansing No No -Anesthetic Used 4% Lidocaine Solution [Edema Assessment] -Lower Limb Edema Present No WC - Nurse 2 - General Ulcer CM Notes Start: 06/30/18 11:03 Freq: Status: Active Protocol: Activity Type Activity Date Activity User E-Sign Co-Sign Detail Recorded Client Recorded Date Recorded By Document 07/07/18 11:29 MW [id number] 07/07/18 11:35 MW 07/07/18 11:29 Wound Center Nurse 2 [Procedure/Treatment] #1 Left Medial BKA -Time 11:30 -Correct Patient Yes -Correct Side, Site, Position Yes -Correct Procedure Yes -Procedure Performed Yes -Type of Procedure Debridement -Clinical Debridement Subcutaneous -Post Debridement Size (cm) - Length 0.5 -Post Debridement Size (cm) - Width 0.6 -Post Debridement Size (cm) - Depth 0.6 -Total Square Cm 0.30 -Wound/Ulcer Outcome Not Healed -Ulcer Cleansing Rinsed/ Irrigated with Saline -Foul Odor after Cleansing No -Bioengineered Tissue No -Bleeding Controlled with Pressure -Offloading No -Treatment Response Procedure Tolerated Well [See Physician Procedure note for Specifics] Pain Scale: 0-10 Numeric [Pain] -Is Patient Pain Free? Yes Musculoskeletal: No Muscle Wasting Neurological: Cranial nerves II-XII grossly intact Psych/Mental Status: Normal Affect Debridement Note Post-Debridement Measurements/Treatment WC - Nurse 2 - General Ulcer CM Notes Start: 06/30/18 11:03 Freq: Status: Active Protocol: Activity Type Activity Date Activity User E-Sign Co-Sign Detail Recorded Client Recorded Date Recorded By Document 06/30/18 11:36 MW [id number] 06/30/18 11:40 MW Document 07/07/18 11:29 MW [id number] 07/07/18 11:35 MW 06/30/18 07/07/18 11:36 11:29 Wound Center Nurse 2 #1 Left Medial BKA -Time 11:36 11:30 -Correct Patient Yes Yes -Correct Side, Site, Position Yes Yes -Correct Procedure Yes Yes -Procedure Performed Yes Yes -Type of Procedure Debridement Debridement -Clinical Debridement Subcutaneous Subcutaneous -Post Debridement Size (cm) - Length 0.5 0.5 -Post Debridement Size (cm) - Width 0.5 0.6 -Post Debridement Size (cm) - Depth 0.9 0.6 -Total Square Cm 0.25 0.30 -Wound/Ulcer Outcome Not Healed Not Healed -Ulcer Cleansing Rinsed/ Rinsed/ Irrigated with Irrigated with Saline Saline -Foul Odor after Cleansing No No -Bioengineered Tissue No No -Bleeding Controlled with Pressure Pressure -Offloading No No -Treatment Response Procedure Procedure Tolerated Well Tolerated Well Pain Scale: 0-10 Numeric Is Patient Pain Free? Yes Yes Wound debrided: Left Lower extremity stump Wound Grade/Stage: Stage II Type of Debridement: Excisional debridement Anesthesia Used: 4% Lidocaine Solution Depth: Down to and including healthy tissue, in the subcutaneous layer Percentage of wound debrided: 100 Instrument Used: 3mm curette Tissue Removed: Slough and devitalized tissue Severity: Fat Layer Exposed Amount of bleeding with debridement: Mild Bleeding Controlled with: Pressure Patient tolerated procedure well Assessment/Plan Active Problems Non-healing surgical wound (Chronic) Left BKA Stump. Ulcer of left lower extremity with fat layer exposed (Chronic) Left BKA stump. Assessment: Same as above. Peripheral vascular Disease. Plan: Depth improving. periwound masceration. Debridement done as documented above, procedure was well-tolerated. Continue SNAP vac. Drape periwound area. leave on for a week. If it comes off, apply pomogran with guaze over top. Continue increased protein intake/supplements. She was advised to call with any concerns or questions. Follow-up with me in 1 week. This note was generated with [employer] dictation software. It may contain incorrect words, spelling, and punctuation that were not noted in checking the note before signing.
--- NOTE | 2018-07-07 11:40 | PN.PCM_ITS ---
(1) Non-healing surgical wound Status: Chronic Current Visit: Yes Code(s): T81.89XA - Other complications of procedures, not elsewhere classified, initial encounter Comment: Left BKA Stump. (2) Ulcer of left lower extremity with fat layer exposed Status: Chronic Current Visit: Yes Code(s): L97.922 - Non-pressure chronic ulcer of unspecified part of left lower leg with fat layer exposed Comment: Left BKA stump. Type of Wound Chief Complaint: Left BKA non healing post surgical wound and Ulcer. History of Wound: Ms. Mendenhall is a 52yo with PMH as stated above who presented to the wound center for management of her Left stump wound/ulcer. She is status post amputattion in February however, in she noted increased wound draingae from the stump site and subsequent opening of the wound. She was seen at the [facility] and had two debridements and wound vac placement. She has also been on a course of antibiotics. She denies any significnat concerns or feeling of unwell at this time. Progress of Wound: Improving. No new complaints at this time. - Physical Exam Vital Signs Temp Pulse Resp BP 97.5 F L 75 16 127/74 H 07/07/18 11:20 07/07/18 11:20 07/07/18 11:20 07/07/18 11:20 General: Alert, Oriented x3, Cooperative, No apparent distress HEENT: Atraumatic, Normocephalic Oral: Moist Mucosa Neck: Supple Lungs: Normal air movement Abdomen: Non Tender Extremities: No cyanosis Skin: Ulcer/ Wound Wound Measurements and Assessment WC - Nurse 1 - General Ulcer Measurement Start: 06/30/18 11:03 Freq: Status: Active Protocol: Activity Type Activity Date Activity User E-Sign Co-Sign Detail Recorded Client Recorded Date Recorded By Document 07/04/18 11:47 DL [id number] 07/04/18 12:02 DL Document 07/07/18 11:20 MW [id number] 07/07/18 11:26 MW 07/04/18 07/07/18 11:47 11:20 Wound Center Nurse 1 [Ulcer Assessment] #1 Left Medial BKA -Combined with other wound No -Current Size (cm) - Length 0.4 -Current Size (cm) - Width 0.5 -Current Size (cm) - Depth 0.5 -Total Square Cm 0.20 -Photo Taken No No -Epithelialization None Present -Tunneling No -Undermining/Tunneling No -Circular Undermining No -Exudate Amt None Present (0 Small (1-33%) %) -Exudate Type Serosanguineous -Wound Margin Distinct, Distinct, Outline Outline Attached Attached -Granulation Amt Large (67-100%) Large (67-100%) -Granulation Quality [place] -Slough/Fibrin Yes -Necrosis Amt None Present (0 Small (1-33%) %) -Necrotic Tissue Type Adherent Slough -Structure Exposed N/A N/A -Texture (Mandy-wound Skin Appearance) Scarring Assessed Scarring -Moisture (Mandy-wound Skin Appearance No Abnormality No Abnormality ) Assessed -Color (Mandy-wound Skin Appearance) No Abnormality No Abnormality Assessed -Temperature (Mandy-wound Skin No Abnormality No Abnormality Appearance) (Pt Warm) (Pt Warm) -Tenderness on Palpation (Mandy-wound No No Skin Appearance) -Ulcer Cleansing Wound Cleanser Rinsed/ Irrigated with Saline -Foul Odor after Cleansing No No -Anesthetic Used 4% Lidocaine Solution [Edema Assessment] -Lower Limb Edema Present No WC - Nurse 2 - General Ulcer CM Notes Start: 06/30/18 11:03 Freq: Status: Active Protocol: Activity Type Activity Date Activity User E-Sign Co-Sign Detail Recorded Client Recorded Date Recorded By Document 07/07/18 11:29 MW [id number] 07/07/18 11:35 MW 07/07/18 11:29 Wound Center Nurse 2 [Procedure/Treatment] #1 Left Medial BKA -Time 11:30 -Correct Patient Yes -Correct Side, Site, Position Yes -Correct Procedure Yes -Procedure Performed Yes -Type of Procedure Debridement -Clinical Debridement Subcutaneous -Post Debridement Size (cm) - Length 0.5 -Post Debridement Size (cm) - Width 0.6 -Post Debridement Size (cm) - Depth 0.6 -Total Square Cm 0.30 -Wound/Ulcer Outcome Not Healed -Ulcer Cleansing Rinsed/ Irrigated with Saline -Foul Odor after Cleansing No -Bioengineered Tissue No -Bleeding Controlled with Pressure -Offloading No -Treatment Response Procedure Tolerated Well [See Physician Procedure note for Specifics] Pain Scale: 0-10 Numeric [Pain] -Is Patient Pain Free? Yes Musculoskeletal: No Muscle Wasting Neurological: Cranial nerves II-XII grossly intact Psych/Mental Status: Normal Affect Debridement Note Post-Debridement Measurements/Treatment WC - Nurse 2 - General Ulcer CM Notes Start: 06/30/18 11:03 Freq: Status: Active Protocol: Activity Type Activity Date Activity User E-Sign Co-Sign Detail Recorded Client Recorded Date Recorded By Document 06/30/18 11:36 MW [id number] 06/30/18 11:40 MW Document 07/07/18 11:29 MW [id number] 07/07/18 11:35 MW 06/30/18 07/07/18 11:36 11:29 Wound Center Nurse 2 #1 Left Medial BKA -Time 11:36 11:30 -Correct Patient Yes Yes -Correct Side, Site, Position Yes Yes -Correct Procedure Yes Yes -Procedure Performed Yes Yes -Type of Procedure Debridement Debridement -Clinical Debridement Subcutaneous Subcutaneous -Post Debridement Size (cm) - Length 0.5 0.5 -Post Debridement Size (cm) - Width 0.5 0.6 -Post Debridement Size (cm) - Depth 0.9 0.6 -Total Square Cm 0.25 0.30 -Wound/Ulcer Outcome Not Healed Not Healed -Ulcer Cleansing Rinsed/ Rinsed/ Irrigated with Irrigated with Saline Saline -Foul Odor after Cleansing No No -Bioengineered Tissue No No -Bleeding Controlled with Pressure Pressure -Offloading No No -Treatment Response Procedure Procedure Tolerated Well Tolerated Well Pain Scale: 0-10 Numeric Is Patient Pain Free? Yes Yes Wound debrided: Left Lower extremity stump Wound Grade/Stage: Stage II Type of Debridement: Excisional debridement Anesthesia Used: 4% Lidocaine Solution Depth: Down to and including healthy tissue, in the subcutaneous layer Percentage of wound debrided: 100 Instrument Used: 3mm curette Tissue Removed: Slough and devitalized tissue Severity: Fat Layer Exposed Amount of bleeding with debridement: Mild Bleeding Controlled with: Pressure Patient tolerated procedure well Assessment/Plan Active Problems Non-healing surgical wound (Chronic) Left BKA Stump. Ulcer of left lower extremity with fat layer exposed (Chronic) Left BKA stump. Assessment: Same as above. Peripheral vascular Disease. Plan: Depth improving. periwound masceration. Debridement done as documented above, procedure was well-tolerated. Continue SNAP vac. Drape periwound area. leave on for a week. If it comes off, apply pomogran with guaze over top. Continue increased protein intake/supplements. She was advised to call with any concerns or questions. Follow-up with me in 1 week. This note was generated with [employer] dictation software. It may contain incorrect words, spelling, and punctuation that were not noted in checking the note before signing.
--- OUTSIDE RECORDS SUMMARY | 2018-08-16 02:29 | XMS RPT_ITS ---
:1965 Author Organization OHIP Support Name Relationship Address Phone Rashida Mendenhall Unavailable [address] + [place] [address] D Unavailable Unavailable Unavailable Ricco Mckinley Unavailable Unavailable + ABDIRASHID, RASHIDA Unavailable [address] + [place] [address] D Unavailable Unavailable Unavailable RICCO, MCKINLEY Unavailable Unavailable + ABDIRASHID, RASHIDA Unavailable [address] + [place] [address] D Unavailable Unavailable Unavailable RICCO MCKINLEY Unavailable Unavailable + ABDIRASHID, RASHIDA Unavailable Unavailable + ABDIRASHID, RASHIDA Unavailable Unavailable + HELDER SIDHU Unavailable Unavailable + ABDIRASHID, RASHIDA Unavailable Unavailable + ABDIRASHID, RASHIDA Unavailable Unavailable + HELDER SIDHU Unavailable Unavailable + ABDIRASHID, RASHIDA Unavailable [address] + [place] [address] D Unavailable Unavailable Unavailable RICCO, MCKINLEY Unavailable Unavailable + ABDIRASHID, RASHIDA Unavailable [address] + [place] [address] D Unavailable Unavailable Unavailable RICCO MCKINLEY Unavailable Unavailable + ABDIRASHID, RASHIDA Unavailable [address] + [place] [address] D Unavailable Unavailable Unavailable RICCO, MCKINLEY Unavailable Unavailable + ABDIRASHID, RASHIDA Unavailable [address] + [place] [address] D Unavailable Unavailable Unavailable HOUTZ, MCKINLEY Unavailable Unavailable + ABDIRASHID, RASHIDA Unavailable [address] + [place] [address] D Unavailable Unavailable Unavailable HOUTZ, MCKINLEY Unavailable Unavailable + ABDIRASHID, RASHIDA Unavailable [address] + [place] [address] D Unavailable Unavailable Unavailable HOUTZ, MCKINLEY Unavailable Unavailable + ABDIRASHID, RASHIDA Unavailable [address] + [place] [address] D Unavailable Unavailable Unavailable HOUTZ, MCKINLEY Unavailable Unavailable + ABDIRASHID, RASHIDA Unavailable [address] + [place] [address] D Unavailable Unavailable Unavailable HOUTZ, MCKINLEY Unavailable Unavailable + ABDIRASHID, RASHIDA Unavailable [address] + [place] [address] D Unavailable Unavailable Unavailable HOUTZ, MCKINLEY Unavailable Unavailable + ABDIRASHID, RASHIDA Unavailable [address] + [place] [address] D Unavailable Unavailable Unavailable HOUTZ, MCKINLEY Unavailable Unavailable + ABDIRASHID, RASHIDA Unavailable [address] + [place] [address] D Unavailable Unavailable Unavailable ABDIRASHID, RASHIDA Unavailable [address] + [place] [address] D Unavailable Unavailable Unavailable ABDIRASHID, RASHIDA Unavailable [address] + [place] [address] D Unavailable Unavailable Unavailable ABDIRASHID, RASHIDA Unavailable [address] + [place] [address] D Unavailable Unavailable Unavailable ABDIRASHID, RASHIDA Unavailable [address] + [place] [address] D Unavailable Unavailable Unavailable ABDIRASHID, RASHIDA Unavailable [address] + [place] [address] D Unavailable Unavailable Unavailable ABDIRASHID, RASHIDA Unavailable Unavailable + ABDIRASHID, RASHIDA Unavailable Unavailable + ABDIRASHID, RASHIDA Unavailable Unavailable + ABDIRASHID, RASHIDA Unavailable Unavailable + ABDIRASHID, RASHIDA Unavailable Unavailable + ABDIRASHID, RASHIDA Unavailable Unavailable + Care Team Providers Name Role Phone VILLARREALJESSICA DEJESUS Referring Unavailable VILLARREALJESSICA DEJESUS Referring Unavailable DROUBI, BASEM Attending Unavailable KATHRYN GALVAN Referring Unavailable HERSON RAMÍREZ Attending Unavailable MILER, FLO (RES) Attending Unavailable KATHRYN GALVAN Referring Unavailable MILER, FLO (RES) Attending Unavailable MILER, FLO (RES) Referring Unavailable MILER, FLO (RES) Referring Unavailable MILER, FLO (RES) Attending Unavailable MILER, FLO (RES) Referring Unavailable MILER, FLO (RES) Attending Unavailable MILER, FLO (RES) Referring Unavailable MILER, FLO (RES) Referring Unavailable MILER, FLO (RES) Referring Unavailable MILER, FLO (RES) Attending Unavailable MILER, FLO (RES) Referring Unavailable MILER, FLO (RES) Attending Unavailable MILER, FLO (RES) Referring Unavailable MILER, FLO (RES) Attending Unavailable MILER, FLO (RES) Referring Unavailable MILER, FLO (RES) Referring Unavailable BLANCHE BILLY Attending Unavailable CASSANDRA GIFFORD., DR. HAMPTON Primary Care Unavailable PATY GIFFORD., DR. STEVENS Attending Unavailable CASSANDRA GIFFORD., DR. HAMPTON Primary Care Unavailable SIMON BLEDSOE MD Attending Unavailable CASSANDRA GIFFORD., DR. HAMPTON Primary Care Unavailable CASSANDRA GIFFORD., DR. HAMPTON Primary Care Unavailable ADA SULLIVAN MD Admitting Unavailable CATIA RUBIO MD Consulting Unavailable VLADISLAV MORTENSEN Attending Unavailable LEI GIFFORD, ELISA Consulting Unavailable VIV GIFFORD, JULIO Consulting Unavailable AISHWARYA GREER MD Consulting Unavailable KRISHNA GIFFORD, MIN Consulting Unavailable RAMON MUNROE DO Consulting Unavailable JESSICA FONTAINE, DR. JESSICA Fuentes Consulting Unavailable DROUBI, BASEM Admitting Unavailable DROUBI, BASEM Attending Unavailable SONJA, ANGEL MATHEUS Admitting Unavailable SONJA, ANGELSAM MCGREGORO Attending Unavailable LIZ THOMPSON Attending Unavailable LUIS A VAZQUEZ Attending Unavailable MILER, FLO Admitting Unavailable MILER, FLO Attending Unavailable CASSANDRA, DHEERAJ GURMEET Referring Unavailable MILER, FLO Attending Unavailable CASSANDRA, DHEERAJ GURMEET Referring Unavailable MILER, FLO Admitting Unavailable MILER, FLO Attending Unavailable CASSANDRA, DHEERAJ GURMEET Referring Unavailable MILER, FLO Attending Unavailable CASSANDRA, DHEERAJ GURMEET Referring Unavailable MILER, FLO Admitting Unavailable MILER, FLO Attending Unavailable MILER, FLO Referring Unavailable MILER, FLO Admitting Unavailable ALYAFI, [facility] Attending Unavailable ALYAFI, [facility] Consulting Unavailable Oleghe, Efewongbe Attending Unavailable Oleghe, Efewongbe Referring Unavailable Oleghe, Efewongbe Attending Unavailable Dheeraj Trujillo Primary Care Unavailable Leyva, Admitting Unavailable Leyva, Referring Unavailable Jopperi, Jarad Consulting Unavailable Cesia, Kathryn Primary Care Unavailable Mike Dutta Attending Unavailable Oleghe, Efewongbe Attending Unavailable Oleghe, Efewongbe Referring Unavailable Oleghe, Efewongbe Attending Unavailable Oleghe, Efewongbe Referring Unavailable Gregg Steele Attending Unavailable Leyva, Admitting Unavailable JoconoreriMynoric Attending Unavailable Leyva, Referring Unavailable KATHRYN HOPE Primary Care Unavailable Jopperi, Jarad Consulting Unavailable Leyva, Consulting Unavailable Gordon, Admitting Unavailable Moncho Leal Attending Unavailable Leyva, Referring Unavailable Cesia, Kathryn Primary Care Unavailable Harley, Jarad Consulting Unavailable Moncho Leal Consulting Unavailable Gordon, Admitting Unavailable Moncho Leal Attending Unavailable Leyva, Referring Unavailable Cesia, Kathryn Primary Care Unavailable Harley, Jarad Consulting Unavailable Moncho Leal Consulting Unavailable Gordon, Admitting Unavailable Moncho Leal Attending Unavailable Leyva, Referring Unavailable Cesia, Kathryn Primary Care Unavailable Harley, Jarad Consulting Unavailable Moncho Leal Consulting Unavailable Gordon, Admitting Unavailable Moncho Leal Attending Unavailable Leyva, Referring Unavailable Cesia, Kathryn Primary Care Unavailable Harley, Jarad Consulting Unavailable Moncho Leal Consulting Unavailable Oleghe, Efewongbe Attending Unavailable Dheeraj Trujillo Primary Care Unavailable Oleghe, Efewongbe Attending Unavailable Oleghe, Efewongbe Referring Unavailable Oleghe, Efewongbe Attending Unavailable Dheeraj Trujillo Primary Care Unavailable Oleghe, Efewongbe Attending Unavailable Oleghe, Efewongbe Referring Unavailable Oleghe, Efewongbe Attending Unavailable Oleghe, Efewongbe Referring Unavailable Oleghe, Efewongbe Attending Unavailable Oleghe, Efewongbe Referring Unavailable Oleghe, Efewongbe Attending Unavailable Oleghe, Efewongbe Referring Unavailable Oleghe, Efewongbe Attending Unavailable Dheeraj Trujillo Primary Care Unavailable PROBLEMS PROBLEMS DATE TYPE CONDITION / CODE ATTENDING STATUS SOURCE 07/20/2018 Unknown T81.89XA - Other [place], Active [place] complications of [facility] procedures, not Hospital elsewhere classified, Repository initial encounter / T81.89XA(ICD-10) 07/20/2018 Unknown L97.922 - [place], Active [place] 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 / L97.922(ICD-10) 06/08/2018 Unknown I73.9 - Peripheral Oleghe, Active [place] vascular disease, [facility] unspecified / Hospital I73.9(ICD-10) Repository 05/03/2018 Active Pain in left leg / [facility], [facility] Active [facility] M79.605(ICD-10) Clinic Other [place] Repository 04/19/2018 Active 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, Clinic Other unspecified extremity [place] / T87.40(ICD-10) Repository 03/09/2018 Unknown R52 - Pain, [place], Active [place] unspecified / [facility] R52(ICD-10) Hospital Repository 02/18/2018 Active Other specified MILER, FLO Active [facility] postprocedural states Clinic Other / Z98.890(ICD-10) [place] Repository 02/18/2018 Active Pain, unspecified / MILER, FLO Active [facility] R52(ICD-10) Clinic Other [place] Repository 02/18/2018 Active Other acute MILER FLO Active [facility] postprocedural pain / Clinic Other G89.18(ICD-10) [place] Repository 02/14/2018 Active Other disorder of MILER, FLO Active [facility] circulatory system / Clinic Other I99.8(ICD-10) [place] Repository 04/24/2014 Active Unspecified NA Active [facility] atherosclerosis of Clinic Main te[place] arteries of [place] extremities, Repository unspecified extremity / I70.209(ICD-10) 11/23/2017 Active Cellulitis of left VANLIZ VENTURA Active [facility] toe / L03.032(ICD-10) Clinic Other [place] Repository 11/11/2017 Active Pain in left foot / SONJALALYANGEL Active [facility] M79.672(ICD-10) [facility]HEUS Clinic Other [place] Repository 11/11/2017 Active Unspecified disorder SONJA, ANGEL Active [facility] of circulatory system MATHEUS Clinic Other / I99.9(ICD-10) [place] Repository 11/11/2017 Active Essential SONJA, 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 Diff DNA Negative- No toxigenic C. Diff DNA Detected NAAT METHOD Testing was performed using nucleic acid amplification Performed By: #### M100.6796 #### [facility] [address] [place] [address], [id number] CBC Collected: 07/13/2018 Status: F Source: [facility] RE[facility] TYPE CODE TESTS RESULT OUT OF REFERENCE UNITS RANGE LAB WBC(LOINC) 4.50-10.80 10 3/mcL WBC 9.40 LAB RBCCT(LOINC 4.10-5.30 10 6/mcL ) RBC 4.33 LAB HGB(LOINC) 12.0-16.0 G/dL Low Hgb 11.9 LAB HCT(LOINC) 34.0-46.0 % Hct 36.7 LAB MCV(LOINC) 80.0-99.0 fL MCV 84.6 LAB MCH(LOINC) 27.0-33.0 pg MCH 27.6 LAB MCHC(LOINC) 32.0-36.0 G/dL MCHC 32.6 LAB RDW(LOINC) 11.5-15.5 % RDW 15.2 LAB PLT(LOINC) 150-450 10 3/mcL High Platelet 601 LAB MPV(LOINC) 6.6-10.5 fL MPV 8.1 Performed By: #### CBC, ADIFF, ANEU, BMP, GFR #### [address] [address] .AUTO DIFF Collected: 07/13/2018 Status: F Source: [facility] 3:54 AM [facility] REPOSITORY TYPE CODE TESTS RESULT OUT OF REFERENCE UNITS RANGE LAB KERRY(LOINC) 50.0-75.0 % Neutrophil % 65.0 LAB LYM(LOINC) 20.0-40.0 % Lymphocyte % 24.6 LAB MON(LOINC) 2.0-13.0 % Monocyte % 7.9 LAB EO(LOINC) 0.0-6.0 % Eosinophil % 1.8 LAB BAS(LOINC) 0.0-2.5 % Basophil % 0.7 LAB ABLYM(LOIN 0.90-4.32 10 3/mcL C) Lymphocyte, 2.30 Absolute LAB ANDERSON(LOINC 0.09-1.40 10 3/mcL ) Monocyte, 0.70 Absolute LAB AEOS(LOINC 0.00-0.65 10 3/mcL ) Eosinophil, 0.20 Absolute LAB ABAS(LOINC 0.00-0.27 10 3/mcL ) Basophil, 0.10 Absolute Performed By: #### CBC, ADIFF, ANEU, BMP, GFR #### [address] [address] .NEUABS Collected: 07/13/2018 Status: F Source: [facility] 3:54 AM [facility] REPOSITORY TYPE CODE TESTS RESULT OUT OF REFERENCE UNITS RANGE LAB ANEU(LOINC) 2.25-8.10 10 3/mcL Neutrophil, 6.10 Absolute Performed By: #### CBC, ADIFF, ANEU, BMP, GFR #### [place] [id number] BMP Collected: 07/13/2018 Status: F Source: [facility] 3:54 AM [facility] REPOSITORY TYPE CODE TESTS RESULT OUT OF REFERENCE UNITS RANGE LAB GLU(LOINC) 70-110 mg/dL Glucose Level 97 LAB NA(LOINC) 136-145 mEq/L Sodium Level 143 LAB K(LOINC) 3.5-5.0 mEq/L Potassium Level 4.5 LAB CL(LOINC) 98-110 mEq/L Chloride High 113 LAB CO2(LOINC) 22-32 mEq/L Low CO2 20 LAB EBAL(LOINC 4.0-15.0 mEq/L ) Electrolyte Balance 10.0 LAB BUN(LOINC) 8.0-22.0 mg/dL BUN 16.0 LAB CRE(LOINC) 0.50-1.20 mg/dL Creatinine Lvl (s) 0.79 LAB BC(LOINC) 10.0-22.0 ratio BUN/Creatinine 20.3 Ratio LAB CA(LOINC) 8.4-10.1 mg/dL Calcium Lvl 8.5 Performed By: #### CBC, ADIFF, ANEU, BMP, GFR #### [place] [address] .GFR Collected: 07/13/2018 Status: F Source: [facility] 3:54 AM [facility] REPOSITORY TYPE CODE TESTS RESULT OUT OF REFERENCE UNITS RANGE LAB GFRAA(LOINC ml/min/1.73 ) sqm GFR >60 Palestinian Result Comment: GFR Population mean for , Non- Americans Ages 20-29 = 116 mL/min/1.73 sq.m. Ages 30-39 = 107 mL/min/1.73 sq.m. Ages 40-49 = 99 mL/min/1.73 sq.m. Ages 50-59 = 93 mL/min/1.73 sq.m. Ages 60-69 = 85 mL/min/1.73 sq.m. Ages 70+ = 75 mL/min/1.73 sq.m. Chronic Kidney Disease: Less than 60 mL/min/1.73 square meters End Stage Renal Disease: Less than 15 mL/min/1.73 square meters LAB GFRNO(LOINC) ml/min/1.73sqm GFR Non- >60 Result Comment: GFR Population mean for , Non- Americans Ages 20-29 = 116 mL/min/1.73 sq.m. Ages 30-39 = 107 mL/min/1.73 sq.m. Ages 40-49 = 99 mL/min/1.73 sq.m. Ages 50-59 = 93 mL/min/1.73 sq.m. Ages 60-69 = 85 mL/min/1.73 sq.m. Ages 70+ = 75 mL/min/1.73 sq.m. Chronic Kidney Disease: Less than 60 mL/min/1.73 square meters End Stage Renal Disease: Less than 15 mL/min/1.73 square meters Performed By: #### CBC, ADIFF, ANEU, BMP, GFR #### [address] [address] DRUGU Collected: 2018 Status: F Source: [facility] 8:09 AM [facility] REPOSITORY TYPE CODE TESTS RESULT OUT OF RANGE REFERENCE UNITS LAB UDS(LOINC) Positive Unknown Drug Screen Urine LAB UDSDINT( INC) The Unknown Drug Screen urine is Urine Interp presumptive positive for: _ LAB SGDU(LOINC 1.005-1.030 ) 1.028 U Specific [place] Drg Scrn LAB PHDU(LOINC 5.0-8.0 ) 7.5 U pH Drug Scrn LAB UDS0(LOINC ) See Urine Drugs Below screened: Result Comment: This drug screen is a presumptive screening only. No confirmation will be performed unless requested. Drugs screened include: Threshold Amphetamines/Methamphetamines 1,000 ng/mL Barbiturates 200 ng/mL Benzodiazepine metabolites 200 ng/mL Cannabinoids (THC metabolites) 50 ng/mL Benzoylecognine (Cocaine metab) 300 ng/mL Opiates 300 ng/mL Phencyclidine (PCP) 25 ng/mL Methadone 300 ng/mL Propoxyphene 300 ng/mL Testing has been performed FOR MEDICAL PURPOSES ONLY. Performed By: #### DRUGU #### [address] [address] NA Collected: 2018 Status: F Source: [facility] 7:16 AM [facility] REPOSITORY TYPE CODE TESTS RESULT OUT OF REFERENCE UNITS RANGE LAB NA(LOINC) 136-145 mEq/L High Sodium Level 146 Performed By: #### NA #### [facility] [address] [place] [id number] BG Collected: 2018 Status: F Source: [facility] 7:08 AM [facility] REPOSITORY TYPE CODE TESTS RESULT OUT OF REFERENCE UNITS RANGE LAB PH(LOINC) 7.380-7.460 pH 7.459 LAB PCO2(LOINC 32.0-46.0 mmHg ) Low pCO2 27.1 LAB PO2(LOINC) 74.0-108.0 mmHg pO2 107.6 LAB HCO3(LOINC 21.0-29.0 mmol/L ) Low HCO3 18.8 LAB TCO2(LOINC 22.0-30.0 mmol/L ) Low CO2 Totl 19.6 LAB BE(LOINC) mmol/L Base Excess -3.8 LAB O2SAT(LOIN 92.0-96.0 % C) O2 Sat High 98.4 LAB BPRES(LOIN mmHg C) Barometric 739 Pressure Performed By: #### BG #### [address] [address] [address] HEAD OR BRAIN W/O Observed: 2018 Status: F Source: [facility] CONTRAST 5:47 AM [facility] REPOSITORY ORIGINAL CT HEAD OR BRAIN W/O CONTRAST This exam was performed according to our departmental dose optimization program, and includes the following measures where applicable: automated exposure control, adjustment of the mAs and/or kVp accord ing to patient size and/or exam, and an iterative reconstruction algorithm. CLINICAL STATEMENT: f/u stroke. COMPARISON: CT head on 07/10/2018. FINDINGS: There is development of increase edema in the RIGHT cerebral hemisphere throughout the distribution of RIGHT middle cerebral artery consistent with evolving nonhemorrhagic infarct. There is no evidence of acute intracranial hemorrhage. There is increase mass effect on the RIGHT lateral ventricle, with compression of the ventricle and shift of midline structures from RIGHT to LEFT by a 6 mm. There is no hydrocephalus. No intraventricular hemorrhage is present. No acute abnormality of LEFT cerebral hemisphere or cerebellum is present. 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 6 mm shift of midline is now present. No intracranial hemorrhage. Interpreted By: Norman Amador MD Preliminary Report By: Norman Amador MD Electronically Signed By: Norman Amador MD Dictated Date: 2018 6:08:25 AM Prelim Date: 2018 6:08:25 AM Sign Date: 2018 6:11:05 AM CBC Collected: 2018 Status: F Source: [facility] 3:49 AM [facility] REPOSITORY TYPE CODE TESTS RESULT OUT OF REFERENCE UNITS RANGE LAB WBC(LOINC) 4.50-10.80 10 3/mcL WBC 9.90 LAB RBCCT(LOINC 4.10-5.30 10 6/mcL ) RBC 4.30 LAB HGB(LOINC) 12.0-16.0 G/dL Low Hgb 11.9 LAB HCT(LOINC) 34.0-46.0 % Hct 35.8 LAB MCV(LOINC) 80.0-99.0 fL MCV 83.3 LAB MCH(LOINC) 27.0-33.0 pg MCH 27.6 LAB MCHC(LOINC) 32.0-36.0 G/dL MCHC 33.1 LAB RDW(LOINC) 11.5-15.5 % High RDW 15.6 LAB PLT(LOINC) 150-450 10 3/mcL High Platelet 597 LAB MPV(LOINC) 6.6-10.5 fL MPV 7.9 Performed By: #### CBC, ADIFF, ANEU, BMP, GFR #### [place] [address] .AUTO DIFF Collected: 2018 Status: F Source: [facility] 3:49 AM [facility] REPOSITORY TYPE CODE TESTS RESULT OUT OF REFERENCE UNITS RANGE LAB KERRY(LOINC) 50.0-75.0 % Neutrophil % 72.3 LAB LYM(LOINC) 20.0-40.0 % Low Lymphocyte % 19.8 LAB MON(LOINC) 2.0-13.0 % Monocyte % 7.0 LAB EO(LOINC) 0.0-6.0 % Eosinophil % 0.4 LAB BAS(LOINC) 0.0-2.5 % Basophil % 0.5 LAB ABLYM(LOIN 0.90-4.32 10 3/mcL C) Lymphocyte, 2.00 Absolute LAB ANDERSON(LOINC 0.09-1.40 10 3/mcL ) Monocyte, 0.70 Absolute LAB AEOS(LOINC 0.00-0.65 10 3/mcL ) Eosinophil, 0.00 Absolute LAB ABAS(LOINC 0.00-0.27 10 3/mcL ) Basophil, 0.00 Absolute Performed By: #### CBC, ADIFF, ANEU, BMP, GFR #### [address] [address] .NEUABS Collected: 2018 Status: F Source: [facility] 3:49 AM [facility] REPOSITORY TYPE CODE TESTS RESULT OUT OF REFERENCE UNITS RANGE LAB ANEU(LOINC) 2.25-8.10 10 3/mcL Neutrophil, 7.20 Absolute Performed By: #### CBC, ADIFF, ANEU, BMP, GFR #### [address] [address] BMP Collected: 2018 Status: F Source: [facility] 3:49 AM [facility] REPOSITORY TYPE CODE TESTS RESULT OUT OF REFERENCE UNITS RANGE LAB GLU(LOINC) 70-110 mg/dL Glucose Level 106 LAB NA(LOINC) 136-145 mEq/L Sodium Level 145 LAB K(LOINC) 3.5-5.0 mEq/L Potassium Level 3.8 LAB CL(LOINC) 98-110 mEq/L Chloride High 115 LAB CO2(LOINC) 22-32 mEq/L Low CO2 21 LAB EBAL(LOINC 4.0-15.0 mEq/L ) Electrolyte Balance 9.0 LAB BUN(LOINC) 8.0-22.0 mg/dL BUN 15.0 LAB CRE(LOINC) 0.50-1.20 mg/dL Creatinine Lvl (s) 0.70 LAB BC(LOINC) 10.0-22.0 ratio BUN/Creatinine 21.4 Ratio LAB CA(LOINC) 8.4-10.1 mg/dL Calcium Lvl 8.5 Performed By: #### CBC, ADIFF, ANEU, BMP, GFR #### [address] [address] .GFR Collected: 2018 Status: F Source: [facility] 3:49 AM [facility] REPOSITORY TYPE CODE TESTS RESULT OUT OF REFERENCE UNITS RANGE LAB GFRAA(LOINC ml/min/1.73 ) sqm GFR >60 Palestinian Result Comment: GFR Population mean for , Non- Americans Ages 20-29 = 116 mL/min/1.73 sq.m. Ages 30-39 = 107 mL/min/1.73 sq.m. Ages 40-49 = 99 mL/min/1.73 sq.m. Ages 50-59 = 93 mL/min/1.73 sq.m. Ages 60-69 = 85 mL/min/1.73 sq.m. Ages 70+ = 75 mL/min/1.73 sq.m. Chronic Kidney Disease: Less than 60 mL/min/1.73 square meters End Stage Renal Disease: Less than 15 mL/min/1.73 square meters LAB GFRNO(LOINC) ml/min/1.73sqm GFR Non- >60 Result Comment: GFR Population mean for , Non- Americans Ages 20-29 = 116 mL/min/1.73 sq.m. Ages 30-39 = 107 mL/min/1.73 sq.m. Ages 40-49 = 99 mL/min/1.73 sq.m. Ages 50-59 = 93 mL/min/1.73 sq.m. Ages 60-69 = 85 mL/min/1.73 sq.m. Ages 70+ = 75 mL/min/1.73 sq.m. Chronic Kidney Disease: Less than 60 mL/min/1.73 square meters End Stage Renal Disease: Less than 15 mL/min/1.73 square meters Performed By: #### CBC, ADIFF, ANEU, BMP, GFR #### [address] [address] HH Collected: 07/11/2018 Status: F Source: [facility] 11:16 PM [facility] REPOSITORY TYPE CODE TESTS RESULT OUT OF RANGE REFERENCE UNITS LAB HGB(LOINC) 12.0-16.0 G/dL Low Hgb 11.9 LAB HCT(LOINC) 34.0-46.0 % Hct 35.5 Performed By: #### HH, NA #### [address] [address] NA Collected: 07/11/2018 Status: F Source: [facility] 11:16 PM [facility] REPOSITORY TYPE CODE TESTS RESULT OUT OF REFERENCE UNITS RANGE LAB NA(LOINC) 136-145 mEq/L Sodium Level 142 Performed By: #### HH, NA #### [address] [address] PLTF Collected: 07/11/2018 Status: F Source: [facility] 3:02 PM [facility] REPOSITORY TYPE CODE TESTS RESULT OUT OF REFERENCE UNITS RANGE LAB PLTB(LOINC k/mm3 ) Plt Base 564 LAB PLTA(LOINC k/mm3 ) Plt ADP 53 LAB PLTP(LOINC 80-97 % ) Plt % Functional 91 Performed By: #### PLTF #### [place] [address] HH Collected: 07/11/2018 Status: F Source: [facility] 12:11 PM [facility] REPOSITORY TYPE CODE TESTS RESULT OUT OF RANGE REFERENCE UNITS LAB HGB(LOINC) 12.0-16.0 G/dL Hgb 12.2 LAB HCT(LOINC) 34.0-46.0 % Hct 37.5 Performed By: #### HH #### [place] [address] NA Collected: 07/11/2018 Status: F Source: [facility] 12:11 PM [facility] REPOSITORY TYPE CODE TESTS RESULT OUT OF REFERENCE UNITS RANGE LAB NA(LOINC) 136-145 mEq/L Sodium Level 142 Performed By: #### NA #### [place] [address] HH Collected: 07/11/2018 Status: F Source: [facility] 10:40 AM [facility] REPOSITORY TYPE CODE TESTS RESULT OUT OF RANGE REFERENCE UNITS LAB HGB(LOINC) 12.0-16.0 G/dL Hgb 12.5 LAB HCT(LOINC) 34.0-46.0 % Hct 37.7 Performed By: #### HH #### [place] [address] CAION Collected: 07/11/2018 Status: F Source: [facility] 6:23 AM [facility] REPOSITORY TYPE CODE TESTS RESULT OUT OF REFERENCE UNITS RANGE LAB CAION(LOINC 1.12-1.32 mmol/L ) Calcium 1.15 Ionized Performed By: #### CAION, BMP, MG, PHOS, GFR, TROPI #### [place] [address] BMP Collected: 07/11/2018 Status: F Source: [facility] 6:23 AM [facility] REPOSITORY TYPE CODE TESTS RESULT OUT OF REFERENCE UNITS RANGE LAB GLU(LOINC) 70-110 mg/dL Glucose High Level 111 LAB NA(LOINC) 136-145 mEq/L Sodium Level 142 LAB K(LOINC) 3.5-5.0 mEq/L Potassium Level 3.9 LAB CL(LOINC) 98-110 mEq/L Chloride High 112 LAB CO2(LOINC) 22-32 mEq/L Low CO2 21 LAB EBAL(LOINC 4.0-15.0 mEq/L ) Electrolyte Balance 9.0 LAB BUN(LOINC) 8.0-22.0 mg/dL BUN 16.0 LAB CRE(LOINC) 0.50-1.20 mg/dL Creatinine Lvl (s) 0.78 LAB BC(LOINC) 10.0-22.0 ratio BUN/Creatinine 20.5 Ratio LAB CA(LOINC) 8.4-10.1 mg/dL Calcium Lvl 8.7 Performed By: #### KERRY, BMP, MG, PHOS, GFR, TROPI #### [place] [address] MG Collected: 07/11/2018 Status: F Source: [facility] 6:23 AM [facility] REPOSITORY TYPE CODE TESTS RESULT OUT OF REFERENCE UNITS RANGE LAB MG(LOINC) 1.6-2.4 mg/dL Magnesium Lvl 2.3 Performed By: #### KERRY, BMP, MG, PHOS, GFR, TROPI #### [place] [address] PHOS Collected: 07/11/2018 Status: F Source: [facility] 6:23 AM [facility] REPOSITORY TYPE CODE TESTS RESULT OUT OF REFERENCE UNITS RANGE LAB PHOS(LOINC 2.5-4.5 mg/dL ) Phosphorus 3.1 Performed By: #### CAION, BMP, MG, PHOS, GFR, TROPI #### [place] [address] .GFR Collected: 07/11/2018 Status: F [facility] 6:23 AM [facility] REPOSITORY TYPE CODE TESTS RESULT OUT OF REFERENCE UNITS RANGE LAB GFRAA(LOINC ml/min/1.73 ) sqm GFR >60 Palestinian Result Comment: GFR Population mean for , Non- Americans Ages 20-29 = 116 mL/min/1.73 sq.m. Ages 30-39 = 107 mL/min/1.73 sq.m. Ages 40-49 = 99 mL/min/1.73 sq.m. Ages 50-59 = 93 mL/min/1.73 sq.m. Ages 60-69 = 85 mL/min/1.73 sq.m. Ages 70+ = 75 mL/min/1.73 sq.m. Chronic Kidney Disease: Less than 60 mL/min/1.73 square meters End Stage Renal Disease: Less than 15 mL/min/1.73 square meters LAB GFRNO(LOINC) ml/min/1.73sqm GFR Non- >60 Result Comment: GFR Population mean for , Non- Americans Ages 20-29 = 116 mL/min/1.73 sq.m. Ages 30-39 = 107 mL/min/1.73 sq.m. Ages 40-49 = 99 mL/min/1.73 sq.m. Ages 50-59 = 93 mL/min/1.73 sq.m. Ages 60-69 = 85 mL/min/1.73 sq.m. Ages 70+ = 75 mL/min/1.73 sq.m. Chronic Kidney Disease: Less than 60 mL/min/1.73 square meters End Stage Renal Disease: Less than 15 mL/min/1.73 square meters Performed By: #### CAION, BMP, MG, PHOS, GFR, TROPI #### [place] [address] TROPI Collected: 07/11/2018 Status: F Source: [facility] 6:23 AM [facility] REPOSITORY TYPE CODE TESTS RESULT OUT OF REFERENCE UNITS RANGE LAB TROPI(LOINC 0.000-0.040 ng/mL ) Troponin I <0.015 Result Comment: Troponin I reference ranges (03/26/14): 0.00-0.040 ng/mL Negative and non-diagnostic. >0.040 ng/mL Consistent with cardiac damage, increased clinical risk and possibility of myocardial infarction. Serial measurements, a rise & fall in test results, clinical history, appropriate symptoms and/or ECG changes may help assess possibility of HI. *Other non-acute coronary syndrome conditions such as CHF, myocarditis, pulmonary emboli, sepsis and cardiac surgery could result in myocardial damage and increased troponin levels. Performed By: #### CAION, BMP, MG, PHOS, GFR, TROPI #### [address] [address] CMP Collected: 07/11/2018 Status: F Source: [facility] 6:23 AM [facility] REPOSITORY TYPE CODE TESTS RESULT OUT OF REFERENCE UNITS RANGE LAB GLU(LOINC) 70-110 mg/dL Glucose High Level 117 LAB NA(LOINC) 136-145 mEq/L Sodium Level 142 LAB K(LOINC) 3.5-5.0 mEq/L Potassium Level 4.0 LAB CL(LOINC) 98-110 mEq/L Chloride High 112 LAB CO2(LOINC) 22-32 mEq/L CO2 22 LAB EBAL(LOINC 4.0-15.0 mEq/L ) Electrolyte Balance 8.0 LAB BUN(LOINC) 8.0-22.0 mg/dL BUN 16.0 LAB CRE(LOINC) 0.50-1.20 mg/dL Creatinine Lvl (s) 0.82 LAB BC(LOINC) 10.0-22.0 ratio BUN/Creatinine 19.5 Ratio LAB CA(LOINC) 8.4-10.1 mg/dL Calcium Lvl 8.6 LAB PROT(LOINC 6.0-8.5 G/dL ) Total Protein 7.5 LAB ALB(LOINC) 3.2-4.8 G/dL Albumin Level 3.4 LAB GLB(LOINC) 1.5-3.8 G/dL Globulin High 4.1 LAB AG(LOINC) 0.9-1.6 ratio Low A/G Ratio 0.8 LAB BILT(LOINC 0.2-1.2 mg/dL ) Bili Total 0.4 LAB AP(LOINC) 38-126 U/L Alk Phos 82 LAB AST(LOINC) 8-34 U/L AST/SGOT 19 LAB ALT(LOINC) 10-49 U/L ALT/SGPT 33 Performed By: #### CMP, CBC, ADIFF, ANEU #### [address] [address] CBC Collected: 07/11/2018 Status: F Source: [facility] 6:23 AM [facility] REPOSITORY TYPE CODE TESTS RESULT OUT OF REFERENCE UNITS RANGE LAB WBC(LOINC) 4.50-10.80 10 3/mcL High WBC 11.60 LAB RBCCT(LOINC 4.10-5.30 10 6/mcL ) RBC 4.45 LAB HGB(LOINC) 12.0-16.0 G/dL Hgb 12.2 LAB HCT(LOINC) 34.0-46.0 % Hct 37.3 LAB MCV(LOINC) 80.0-99.0 fL MCV 83.8 LAB MCH(LOINC) 27.0-33.0 pg MCH 27.5 LAB MCHC(LOINC) 32.0-36.0 G/dL MCHC 32.8 LAB RDW(LOINC) 11.5-15.5 % RDW 15.3 LAB PLT(LOINC) 150-450 10 3/mcL High Platelet 620 LAB MPV(LOINC) 6.6-10.5 fL MPV 7.9 Performed By: #### CMP, CBC, ADIFF, ANEU #### [address] [address] .AUTO DIFF Collected: 07/11/2018 Status: F Source: [facility] 6:23 AM [facility] REPOSITORY TYPE CODE TESTS RESULT OUT OF REFERENCE UNITS RANGE LAB KERRY(LOINC) 50.0-75.0 % High Neutrophil % 82.0 LAB LYM(LOINC) 20.0-40.0 % Low Lymphocyte % 11.7 LAB MON(LOINC) 2.0-13.0 % Monocyte % 5.8 LAB EO(LOINC) 0.0-6.0 % Eosinophil % 0.2 LAB BAS(LOINC) 0.0-2.5 % Basophil % 0.3 LAB ABLYM(LOIN 0.90-4.32 10 3/mcL C) Lymphocyte, 1.40 Absolute LAB ANDERSON(LOINC 0.09-1.40 10 3/mcL ) Monocyte, 0.70 Absolute LAB AEOS(LOINC 0.00-0.65 10 3/mcL ) Eosinophil, 0.00 Absolute LAB ABAS(LOINC 0.00-0.27 10 3/mcL ) Basophil, 0.00 Absolute Performed By: #### CMP, CBC, ADIFF, ANEU #### [address] [address] .NEUABS Collected: 07/11/2018 Status: F Source: [facility] 6:23 AM [facility] REPOSITORY TYPE CODE TESTS RESULT OUT OF REFERENCE UNITS RANGE LAB ANEU(LOINC) 2.25-8.10 10 3/mcL High Neutrophil, 9.50 Absolute Performed By: #### CMP, CBC, ADIFF, ANEU #### [place] [id number] [place] [id number] LIPID Collected: 07/11/2018 Status: F Source: [facility] 6:23 AM [facility] REPOSITORY TYPE CODE TESTS RESULT OUT OF REFERENCE UNITS RANGE LAB CHOL(LOINC 50-199 mg/dL ) Cholesterol 156 Result Comment: Cholesterol Reference Interval: Less than 200 Desirable 200-239 Borderline high risk 240 and above High risk LAB TRIG(LOINC) 3-149 mg/dL Triglycerides 73 Result Comment: Triglyceride Reference Interval: Less than 150 Normal 150-199 Borderline high risk 200-499 High risk 500 or higher Very high risk LAB HD(LOINC) 40-59 mg/dL HDL High Cholesterol 63 Result Comment: HDL Reference Interval: Less than 40 Low - high risk 60 or above Optimal/lowers risk LAB LDL(LOINC) 0-129 mg/dL LDL Cholesterol 78 Result Comment: LDL is a calculated result and requires a 12-hr fast. LDL Reference Interval: Less than 100 Optimal 100-129 Near or above optimal 130-159 Borderline high risk 160-189 High risk 190 and above Very high risk Performed By: #### LIPID #### [place] [id number] XR CHEST 1 VIEW Observed: 07/11/2018 Status: F Source: [facility] 5:54 AM [facility] ORIG[facility] Clinical history: Chest pain. Stroke COMPARISON: Chest x-ray on 07/10/2018. A single view of the chest was obtained. The heart is normal in size and configuration. The lungs are clear. There is no mediastinal or hilar mass or pleural effusion. There is no pneumothorax or atelectasis. The visualized bony structures are within normal limits. IMPRESSION: No acute chest process. Interpreted By: Norman Amador MD Preliminary Report By: Norman Amador MD Electronically Signed By: Norman Amador MD Dictated Date: 07/11/2018 7:20:33 AM Prelim Date: 07/11/2018 7:20:33 AM Sign Date: 07/11/2018 7:21:24 AM BG Collected: 07/11/2018 Status: F Source: [facility] 4:17 AM [facility] REPOSITORY TYPE CODE TESTS RESULT OUT OF REFERENCE UNITS RANGE LAB PH(LOINC) 7.380-7.460 pH High 7.487 LAB PCO2(LOINC 32.0-46.0 mmHg ) Low pCO2 27.8 LAB PO2(LOINC) 74.0-108.0 mmHg pO2 86.1 LAB HCO3(LOINC 21.0-29.0 mmol/L ) Low HCO3 20.6 LAB TCO2(LOINC 22.0-30.0 mmol/L ) Low CO2 Totl 21.4 LAB BE(LOINC) mmol/L Base Excess -1.6 LAB O2SAT(LOIN 92.0-96.0 % C) O2 Sat High 97.6 LAB BPRES(LOIN mmHg C) Barometric 736 Pressure Performed By: #### BG #### [place] [address] CT ANGIOGRAPHY NECK Observed: 07/10/2018 Status: F Source: [facility] W/CONTRAST 10:10 PM [facility] REPOSITORY ORIGINAL CT ANGIOGRAPHY NECK W/CONTRAST CLINICAL STATEMENT: Stroke, emergency patient TECHNIQUE: Nonionic intravenous contrast material was administered and axial images were obtained through the neck per standard CTA protocol. Multiplanar reformatted and shaded-surface display and three dimensional volume rendered images were generated. Where applicable, evaluation of ICA stenosis was performed using the site of greatest stenosis is compared to the diameter of the ICA distal to the st enosis at a point where the ICA johnson become parallel. This exam was performed according to our departmental dose optimization program, and includes the following measures where applicable: automated ex posure control, adjustment of the mAs and/or kVp according to patient size and/or exam, and an iterative reconstruction algorithm. COMPARISON: CTA head and CT brain without contrast 08/07/2017 FINDINGS: The imaged aortic arch is normal. The origins of the innominate, bilateral common carotid, bilateral subclavian, and bilateral vertebral arteries demonstrate no significant stenosis. There is artifact through the innominate artery just proximal to its bifurcation giving apparent lack of contrast filling. There is no significant stenosis of the cervical segment of the RIGHT internal carotid artery. There is severe stenosis of the petrous segment of the RIGHT internal carotid artery. The visualized LEFT i nternal carotid artery demonstrates no significant stenosis. The bilateral external carotid arteries are patent. The cervical vertebral arteries are patent and codominant. There is no evidence of arterial dissection, extravasation of contrast material, arteriovenous fistula, or pseudoaneurysm. Limited images of the lung apices demonstrates biapical scarring. IMPRESSION: Severe stenosis of the petrous segment of the RIGHT internal carotid artery. The cervical segment of the RIGHT internal carotid artery is patent. There is no significant stenosis LEFT internal carotid artery. CT angiogram of the head is reported separately. Critical results were called to Dr. Aquino by Dr. Barroso at approximately 10:52 PM. I have personally reviewed the images of this examination and agree with the resident's findings and interpretation. Interpreted By: Norman Amador MD Preliminary Report By: Mike Barroso MD Electronically Signed By: Norman Amador MD Dictated Date: 07/10/2018 10:56:33 PM Prelim Date: 07/10/2018 11:03:20 PM Sign Date: 07/11/2018 1:40:[address] ANGIOGRAPHY HEAD W/ Observed: 07/10/2018 Status: F Source: [facility] CONTRAST 10:10 PM [facility] REPOSITORY ORIGINAL CT ANGIOGRAPHY HEAD W/ CONTRAST CLINICAL STATEMENT: stroke TECHNIQUE: Nonionic intravenous contrast material was administered and images were obtained through the head per standard CTA protocol. Multiplanar reformatted and three dimensional volume rendered imag es were generated on an independent workstation. This exam was performed according to our departmental dose optimization program, including but not limited to: automated exposure control, adjustment of the mAs and/or kVp according to patient size and/ or exam, and use of an iterative reconstruction algorithm where applicable. COMPARISON: CT head 07/10/2018. FINDINGS: There is severe long segment stenosis of the petrous segment of the RIGHT internal carotid artery extending into the cavernous segment. No flow is demonstrated in the supraclinoid segment. Col lateral circulation is demonstrated from the RIGHT posterior communicating artery and anterior communicating artery, which are patent. This allows for flow through the RIGHT ophthalmic artery. There is occlusion in the proximal M1 segment by an intra-arterial clot. The petrous, cavernous, and supraclinoid segments of the LEFT internal carotid artery is patent. The LEFT ophthalmic artery origin is visualized and normal. The LEFT ROQUE and MCA are widely patent. The bilateral changeover operator are patent. The LEFT posterior communicating artery is not demonstrated. The vertebral arteries are patent, and codominant. The basilar artery and origins of the anterior inferior cerebellar arteries and superior cerebellar arteries are normal. The RIGHT posterior inferior c erebellar artery origin is demonstrated and patent. The origin of the LEFT posterior inferior cerebellar artery is not demonstrated, however, flow is seen in this vessel indicating it is likely beyond the field of view of this study. No saccular aneurysm is demonstrated. While the study was optimized for arterial evaluation, the dural venous sinuses demonstrates no evidence of thrombosis. Findings of a RIGHT MCA territorial infarct are again demonstrated. IMPRESSION: Severe stenosis of the petrous segment of the RIGHT internal carotid artery extending into the cavernous segment. There is no flow demonstrated in the suprahyoid segment. Collateral flow is received through the elem of Khan by the anterior and RIGHT posterior indicating artery. 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 Findings consistent with a RIGHT MCA territory infarct. The LEFT posterior communicating artery is not demonstrated. Critical results were called to Dr. Aquino by Dr. Barroso at approximately 10:52 PM. I have personally reviewed the images of this examination and agree with the resident's findings and interpretation. Interpreted By: Norman Amador MD Preliminary Report By: Mike Barroso MD Electronically Signed By: Norman Amador MD Dictated Date: 07/10/2018 10:30:39 PM Prelim Date: 07/10/2018 10:44:50 PM Sign Date: 07/11/2018 1:50:54 AM XR CHEST 1 VIEW Observed: 07/10/2018 Status: F Source: [facility] 6:46 PM [facility] REPOSITORY ORIGINAL XR CHEST 1 VIEW AP portable semiupright CLINICAL INDICATION: chest pain/SOB COMPARISON: None FINDINGS: The heart is normal in size. Hilar and mediastinal contours are normal. The lungs are clear. There is no vascular congestion. There is no pleural effusion. The bones are unremarkable. IMPRESSION: No acute cardiopulmonary disease. Interpreted By: Allen Rodriguez MD Preliminary Report By: Allen Rodriguez MD Electronically Signed By: Allen Rodriguez MD Dictated Date: 07/10/2018 7:11:11 PM Prelim Date: 07/10/2018 7:11:11 PM Sign Date: 07/10/2018 7:11:[address] HEAD OR BRAIN W/O Observed: 07/10/2018 Status: F Source: [facility] CONTRAST 6:40 PM [facility] REPOSITORY ORIGINAL CT HEAD OR BRAIN W/O CONTRAST CLINICAL STATEMENT: change in mental status/weakness/aphasia TECHNIQUE: Axial CT images from skull base to vertex without IV contrast. This exam was performed according to our departmental dose optimization program, and includes the following measures where appli cable: automated exposure control, adjustment of the mAs and/or kVp according to patient size and/or exam, and an iterative reconstruction algorithm. COMPARISON: CT head without contrast 06/23/2004 FINDINGS: There is no intracranial hemorrhage, mass, or abnormal extra-axial fluid collection. There is a large RIGHT MCA distribution infarct. Hyperdense clot is seen within the RIGHT MCA vessel. The i nfarct causes mass effect of the RIGHT lateral ventricle with effacement of the frontal horn. No herniation is identified. There is no evidence of hemorrhagic conversion. The remaining ventricular system appears normal. The skull base and calvarium demonstrate no acute abnormality. The included paranasal sinuses and mastoid air cells are clear. IMPRESSION: Large RIGHT MCA distribution infarct (most likely subacute) with mass effect placed on the RIGHT lateral ventricles as described above. No hemorrhagic conversion is identified. Critical results were called to Dr. Bledsoe at approximately 6:[address] Barroso. I have personally reviewed the images of this examination and agree with the resident's findings and interpretation Interpreted By: Allen Rodriguez MD Preliminary Report By: Mike Barroso MD Electronically Signed By: Allen Rodriguez MD Dictated Date: 07/10/2018 6:44:25 PM Prelim Date: 07/10/2018 6:55:00 PM Sign Date: 07/10/2018 8:25:36 PM CBC Collected: 07/10/2018 Status: F Source: [facility] 6:25 PM [facility] REPOSITORY TYPE CODE TESTS RESULT OUT OF REFERENCE UNITS RANGE LAB WBC(LOINC) 4.60-10.80 10 3/mcL High WBC 15.20 LAB RBCCT(LOINC 4.20-5.40 10 6/mcL ) RBC 5.23 LAB HGB(LOINC) 12.0-16.0 G/dL Hgb 14.3 LAB HCT(LOINC) 37.0-47.0 % Hct 43.4 LAB MCV(LOINC) 80.0-94.0 fL MCV 83.0 LAB MCH(LOINC) 27.0-31.2 pg MCH 27.4 LAB MCHC(LOINC) 33.0-37.0 G/dL MCHC 33.0 LAB RDW(LOINC) 11.5-14.5 % High RDW 15.5 LAB PLT(LOINC) 130-400 10 3/mcL High Platelet 741 LAB MPV(LOINC) 7.4-10.4 fL MPV 7.9 Performed By: #### CBC, ADIFF, ANEU, PRO, APTT, ABOG, ANSG #### [address] [address] #### BMP, MG, TROP, GFR #### [address] [address] .AUTO DIFF Collected: 07/10/2018 Status: F Source: [facility] 6:25 PM [facility] REPOSITORY TYPE CODE TESTS RESULT OUT OF REFERENCE UNITS RANGE LAB KERRY(LOINC) 37.0-80.0 % High Neutrophil % 82.6 LAB LYM(LOINC) 10.0-50.0 % Lymphocyte % 12.3 LAB MON(LOINC) 1.7-13.0 % Monocyte % 4.5 LAB EO(LOINC) 0.0-7.0 % Eosinophil % 0.3 LAB BAS(LOINC) 0.0-2.5 % Basophil % 0.3 LAB ABLYM(LOIN 0.77-3.85 10 3/mcL C) Lymphocyte, 1.90 Absolute LAB ANDERSON(LOINC 0.15-1.00 10 3/mcL ) Monocyte, 0.70 Absolute LAB AEOS(LOINC 0.00-0.40 10 3/mcL ) Eosinophil, 0.10 Absolute LAB ABAS(LOINC 0.00-0.19 10 3/mcL ) Basophil, 0.00 Absolute Performed By: #### CBC, ADIFF, ANEU, PRO, APTT, ABOG, ANSG #### [address] [address] #### BMP, MG, TROP, GFR #### [address] [address] .NEUABS Collected: 07/10/2018 Status: F Source: [facility] 6:25 PM [facility] REPOSITORY TYPE CODE TESTS RESULT OUT OF REFERENCE UNITS RANGE LAB ANEU(LOINC) 2.85-6.16 10 3/mcL High Neutrophil, 12.50 Absolute Performed By: #### CBC, ADIFF, ANEU, PRO, APTT, ABOG, ANSG #### [address] [address] #### BMP, MG, TROP, GFR #### [address] [address] BMP Collected: 07/10/2018 Status: F Source: [facility] 6:25 [facility] REPOSITORY TYPE CODE TESTS RESULT OUT OF REFERENCE UNITS RANGE LAB GLU(LOINC) 70-105 mg/dL Glucose High Level 130 LAB NA(LOINC) 136-145 mmol/L Sodium Level 140 LAB K(LOINC) 3.5-5.1 mmol/L Potassium Level 4.6 LAB CL(LOINC) 98-107 mmol/L Chloride High 110 LAB CO2(LOINC) 22-29 mmol/L CO2 25 LAB EBAL(LOINC mEq/L ) Electrolyte Balance 5.0 LAB BUN(LOINC) 7-18 mg/dL BUN High 23 LAB CRE(LOINC) 0.55-1.02 mg/dL Creatinine High Lvl (s) 1.06 LAB BC(LOINC) 7-27 ratio BUN/Creatinine 22 Ratio LAB CA(LOINC) 8.4-10.2 mg/dL Calcium Lvl High 10.3 Performed By: #### CBC, ADIFF, ANEU, PRO, APTT, ABOG, ANSG #### [address] [address] #### BMP, MG, TROP, GFR #### [address] [address] MG Collected: 07/10/2018 Status: F Source: [facility] 6:25 [facility] REPOSITORY TYPE CODE TESTS RESULT OUT OF REFERENCE UNITS RANGE LAB MG(LOINC) 1.8-2.4 mg/dL Magnesium Lvl 2.2 Performed By: #### CBC, ADIFF, ANEU, PRO, APTT, ABOG, ANSG #### [address] [address] #### BMP, MG, TROP, GFR #### [place] [id number] [place] [address] TROP Collected: 07/10/2018 Status: F Source: [facility] 6:25 PM [facility] REPOSITORY TYPE CODE TESTS RESULT OUT OF REFERENCE UNITS RANGE LAB TROP(LOINC) 0.000-0.040 ng/mL Troponin <0.020 Result Comment: Troponin I reference range: 0.00-0.040 ng/mL Negative and non-diagnostic. >0.040 ng/mL Consistent with cardiac damage, increased clinical risk and possibility of myocardial infarction. Serial measurements, a rise & fall in test results, clinical history, appropriate symptoms and/or ECG changes may help assess possibility of HI. *Other non-acute coronary syndrome conditions such as CHF, myocarditis, pulmonary emboli, sepsis and cardiac surgery could result in myocardial damage and increased troponin levels. Performed By: #### CBC, ADIFF, ANEU, PRO, APTT, ABOG, ANSG #### [address] [address] #### BMP, MG, TROP, GFR #### [address] [address] .GFR Collected: 07/10/2018 Status: F Source: [facility] 6:25 [facility] REPOSITORY TYPE CODE TESTS RESULT OUT OF REFERENCE UNITS RANGE LAB GFRAA(LOINC ml/min/1.73 ) sqm GFR 66 Palestinian Result Comment: GFR Population mean for , Non- Americans Ages 20-29 = 116 mL/min/1.73 sq.m. Ages 30-39 = 107 mL/min/1.73 sq.m. Ages 40-49 = 99 mL/min/1.73 sq.m. Ages 50-59 = 93 mL/min/1.73 sq.m. Ages 60-69 = 85 mL/min/1.73 sq.m. Ages 70+ = 75 mL/min/1.73 sq.m. Chronic Kidney Disease: Less than 60 mL/min/1.73 square meters End Stage Renal Disease: Less than 15 mL/min/1.73 square meters LAB GFRNO(LOINC) ml/min/1.73sqm GFR Non- 54 Result Comment: GFR Population mean for , Non- Americans Ages 20-29 = 116 mL/min/1.73 sq.m. Ages 30-39 = 107 mL/min/1.73 sq.m. Ages 40-49 = 99 mL/min/1.73 sq.m. Ages 50-59 = 93 mL/min/1.73 sq.m. Ages 60-69 = 85 mL/min/1.73 sq.m. Ages 70+ = 75 mL/min/1.73 sq.m. Chronic Kidney Disease: Less than 60 mL/min/1.73 square meters End Stage Renal Disease: Less than 15 mL/min/1.73 square meters Performed By: #### CBC, ADIFF, ANEU, PRO, APTT, ABOG, ANSG #### [address] [address] #### BMP, MG, TROP, GFR #### [address] [address] PRO Collected: 07/10/2018 Status: F Source: [facility] 6:25 [facility] REPOSITORY TYPE CODE TESTS RESULT OUT OF REFERENCE UNITS RANGE LAB PT(LOINC) 9.3-14.6 seconds Protime 13.4 LAB INR(LOINC) 0.9-1.2 ratio PT High International 1.3 Ratio Result Comment: Standard Dose 2.0 - 3.0 High Dose 2.5 - 3.5 The recommended therapeutic range for oral anticoagulant therapy is: LOW RISK: Prophylaxis of venous thrombosis INR: 2.0 - 3.0 Treatment of pulmonary embolism 2.0 - 3.0 Prevention of systemic embolism 2.0 - 3.0 HIGH RISK: Mechanical prosthetic valves 2.5 - 3.5 Performed By: #### CBC, ADIFF, ANEU, PRO, APTT, ABOG, ANSG #### [address] [address] #### BMP, MG, TROP, GFR #### [address] [address] APTT Collected: 07/10/2018 Status: F Source: [facility] 6:25 [facility] REPOSITORY TYPE CODE TESTS RESULT OUT OF REFERENCE UNITS RANGE LAB PDOSE(LOIN C) Heparin dose Unknown (APTT) LAB APTT0(LOIN 24.4-35.6 seconds C) APTT 33.1 Result Comment: For Heparin anticoagulation therapy, the recommended therapeutic range is: 47.7-87.7 seconds (1.5 - 2.5 the normal plasma mean). Patients on heparin therapy may have an extreme result. Performed By: #### CBC, ADIFF, ANEU, PRO, APTT, ABOG, ANSG #### [address] [address] #### BMP, MG, TROP, GFR #### [address] [address] GEL ABO Collected: 07/10/2018 Status: F Source: [facility] 6:25 [facility] REPOSITORY TYPE CODE TESTS RESULT OUT OF RANGE REFERENCE UNITS LAB ABORH(LOINC ) Unknown ABO/Rh A NEG Interp Performed By: #### CBC, ADIFF, ANEU, PRO, APTT, ABOG, ANSG #### [address] [address] #### BMP, MG, TROP, GFR #### [address] [address] GEL ABS Collected: 07/10/2018 Status: F Source: [facility] 6:25 [facility] REPOSITORY TYPE CODE TESTS RESULT OUT OF REFERENCE UNITS RANGE LAB ANSG(LOINC ) Antibody Negative ABSC Screen Gel Performed By: #### CBC, ADIFF, ANEU, PRO, APTT, ABOG, ANSG #### [address] [address] #### BMP, MG, TROP, GFR #### [address] [address] LAC Collected: 07/10/2018 Status: F Source: [facility] 6:25 [facility] REPOSITORY TYPE CODE TESTS RESULT OUT OF REFERENCE UNITS RANGE LAB LAC(LOINC) 0.4-2.0 mmol/L Lactic Acid 1.3 Lvl Performed By: #### LAC #### [address] [address] CK Collected: 07/10/2018 Status: F Source: [facility] 6:25 PM [facility] REPOSITORY TYPE CODE TESTS RESULT OUT OF RANGE REFERENCE UNITS LAB CK(LOINC) 26-192 U/L High CPK 223 Performed By: #### CK #### [address] [address] UA Collected: 07/10/2018 Status: F Source: [facility] 6:25 PM [facility] REPOSIT[facility] TYPE CODE TESTS RESULT OUT OF REFERENCE UNITS RANGE LAB SPCUA(LOIN C) UA Specimen Type Catheter LAB CLRUA(LOIN C) UA Color Yellow LAB APPUA(LOIN Clear C) UA Appear Clear LAB SGUA(LOINC ) UA Spec Grav 1.015 LAB GLUA(LOINC Negative mg/dL ) UA Glucose Negative LAB BILUA(LOIN Negative C) UA Bili Negative LAB KETUA(LOIN Negative mg/dL C) UA Ketones Negative LAB BLDUA(LOIN Negative C) UA Blood Negative LAB PHUA(LOINC ) UA pH 6.5 LAB PROUA(LOIN Negative mg/dL C) UA Protein 30 LAB UROUA(LOIN E.U./dL C) UA Urobilinogen 0.2 LAB NITUA(LOIN Negative C) UA Nitrite Negative LAB LEUUA(LOIN Negative C) UA Leuk Est Negative Performed By: #### UA #### [address] [address] CNPN Observed: 05/18/2018 Status: COMPLETED Source: [place] 12:00 AM [facility] REPOSITORY Telephone (SPMETW) NEIL MENDENHALL ([id number]) 1965 F Date Time Provider Department 05/18/18 THEA COOEPR SPMETW During your visit today, we recorded the following information about you: Shelley Fritz Ma 05/18/2018 9:46 AM Addendum Called and left message for call back regarding upcoming appointment scheduled on 05/24/2018 @ 8:50am. Patient being seen for leg pain however was just seen in hospital for wound debridement. Questioning reasoning of appointment as patient still under care of surgeon and is in post operative stage. Shelley Fritz CMa May 18, 2018 9:43 AM Shelley Fritz Ma 05/23/2018 11:28 AM Signed Called and left additional message regarding upcoming appointment on 05/24/2018@8:50am. Patient appears to be in a postoperative stage and under the care of her surgeon. Call back requested to discuss. Shelley Fritz CMa May 23, 2018 11:28 AM Allergies As of Date: 05/18/2018 Noted Allergy Reaction HORIZANT (GABAPENTIN ENACARBIL) 04/19/2014 1 - Mental Status Change WELLBUTRIN (BUPROPION HCL) 11/13/2011 14 - Other: See Comments Comments: Took med on Wednesday Woke up 3 days later in hospital Date Reviewed: 05/03/2018 Reviewed by: Marc (Rn) SARAH Barber - Fully Assessed Reason for Visit: Future Appointment [256] Prescriptions as of 05/18/2018 Sig: ERGOCALCIFEROL (VITAMIN D2) 5* Take 50,000 Units by mouth on* ACETAMINOPHEN 325 MG TABLET Take 2 tablets by mouth every* SENNOSIDES 8.6 MG-DOCUSATE SO* Take 1 tablet by mouth twice * Patient not taking: Reported on 04/29/2018 POLYETHYLENE GLYCOL 3350 17 G* Take 1 Packet by mouth once d* APIXABAN 5 MG TABLET Take 1 tablet by mouth twice * PRAVASTATIN 80 MG TABLET Take 80 mg by mouth once shahram* DOCUSATE SODIUM 100 MG CAPSULE Take 1 capsule by mouth twice* NIFEDIPINE ER 30 MG TABLET,EX* Take 1 tablet by mouth once d* CHOLECALCIFEROL (VITAMIN D3) * Take 5,000 Units by mouth onc* ASPIRIN 81 MG CHEWABLE TABLET Take 1 tablet by mouth once d* LAMOTRIGINE 200 MG TABLET Take 200 mg by mouth once chaitanya* * ABILIFY 20 MG TABLET Take one(1) tablet daily. Problem List As Of Date 05/18/2018 Noted Resolved Bipolar affective [F31.9] INVALID FOR* Carotid artery disease [I77.9] INVALID FOR* PVD (peripheral vascular disease) (HCC) [I73.9] INVALID FOR* Priority: A More... Postoperative pain [G89.18] INVALID FOR* Priority: D More... Dehydration [E86.0] INVALID FOR*04/22/2014 Priority: F More... Arterial occlusion, lower extremity (HCC) [I70.*INVALID FOR* Priority: A More... Bipolar disorder (HCC) [F31.9] INVALID FOR* Priority: C More... Hyperlipidemia [E78.5] INVALID FOR* Priority: C More... Neuropathic pain [M79.2] INVALID FOR* Priority: D More... AISSATOU (obstructive sleep apnea) [G47.33] INVALID FOR* Priority: D More... Smoker [F17.200] INVALID FOR* Priority: E More... Thrombus [I82.90] INVALID FOR* Critical lower limb ischemia [I99.8] INVALID FOR*11/15/2017 Priority: A S/P BKA (below knee amputation) unilateral, lef*INVALID FOR* HTN (hypertension) [I10] INVALID FOR* Priority: B More... Lupus anticoagulant with hypercoagulable state *INVALID FOR* Priority: D More... Amputation stump infection (HCC) [T87.40] INVALID FOR*04/19/2018 Priority: A More... Status post surgery [Z98.890] INVALID FOR* Hypokalemia [E87.6] INVALID FOR*04/19/2018 More... Left leg pain [M79.605] INVALID FOR*05/03/2018 More... Below knee amputation status, open wound [Z89.5*INVALID FOR* Encounter Status:Closed by SHELLEY FRITZ MA on 05/18/18 WOUND CTR HISTORY Observed: 05/16/2018 Status: F Source: [facility] AND [facility]YSICAL 1:10 PM [facility] REPOSITORY [facility] [address] [place] [id number] W[address] Ctr History AND Physical 05/11/18 1117 MR#: [id number] Acct: [id number] Name: NEIL MENDENHALL Rep #: [id number] : 1965 52 From: Neftali Aldridge MD PCP: Dheeraj Trujillo MD Status: REG RCR Y Location: (1) Non-healing surgical wound Status: Chronic Current Visit: Yes Code(s): T81.89XA - Other complications of procedures, not elsewhere classified, initial encounter Comment: Left BKA Stump. (2) Ulcer of left lower extremity with fat layer exposed Status: Chronic Current Visit: Yes Code(s): L97.922 - Non-pressure chronic ulcer of unspecified part of left lower leg with fat layer exposed Comment: Left BKA stump. (3) Status post below knee amputation of left lower extremity Status: Chronic Current Visit: Yes Code(s): Z89.512 - Acquired absence of left leg below knee (4) Peripheral vascular disease Status: Acute Current Visit: Yes Code(s): I73.9 - Peripheral vascular disease, unspecified History of Present Illness Chief Complaint: Left BKA non healing post surgical wound and Ulcer. History of Wound: Ms. Mendenhall is a 52yo with PMH as stated above who presented to the wound center for management of her Left stump wound/ulcer. She is status post amputattion in February however, in she noted increased wound draingae from the stump site and subsequent opening of the wound. She was seen at the [facility] and had two debridements and wound vac placement. She has also been on a course of antibiotics. She denies any significnat concerns or feeling of unwell at this time. Past Medical History Past Medical History: Chronic Problems Status post below knee amputation of left lower extremity (Chronic) Non-healing surgical wound (Chronic) Left BKA Stump. Ulcer of left lower extremity with fat layer exposed (Chronic) Left BKA stump. Allergies/Adverse Reactions: Allergies bupropion HCl [From Wellbutrin] Allergy (Verified 04/19/14 06:26) Other gabapentin enacarbil [From Horizant] Allergy (Verified 04/19/14 06:26) Other Home Medications: Ambulatory Orders Medication Instructions Recorded Aripiprazole [Abilify] 20 mg PO DAILY 04/19/14 Smoking Status: Former smoker Review of Systems Constitutional: Denies: Anorexia, Chills, Fever Eyes: Denies: Blurred vision, Pain, Redness HEENT: Denies: Difficulty Swallowing Cardiovascular: Denies: Chest Pain, Chest Tightness Respiratory: Denies: Cough, Hemoptysis Gastrointestinal: Denies: Abdominal Pain, Hematemesis, Vomiting Skin: Denies: Dryness, Jaundice - Physical Exam Vital Signs Temp Pulse Resp BP 98.0 F 86 16 123/73 H 05/11/18 08:57 05/11/18 08:57 05/11/18 08:57 05/11/18 08:57 General: Alert, Oriented x3, Cooperative, No apparent distress HEENT: Atraumatic Oral: Moist Mucosa Neck: Supple Lungs: Normal air movement Cardiovascular: Regular rate, Regular Rhythm Abdomen: Soft, Non Tender Extremities: No cyanosis Skin: Ulcer/ Wound Wound Measurements and Assessment WC - Nurse 1 - General Ulcer Measurement Start: 05/11/18 08:20 Freq: Status: Active Protocol: Activity Type Activity Date Activity User E-Sign Co-Sign Detail Recorded Client Recorded Date Recorded By Document 05/11/18 08:57 DV [id number] 05/11/18 09:35 DV Wound Center Nurse 1 [Ulcer Assessment] #2 Left LATERAL BKA -Combined with other wound No WC - Nurse 2 - General Ulcer CM Notes Start: 05/11/18 08:20 Freq: Status: Active Protocol: Activity Type Activity Date Activity User E-Sign Co-Sign Detail Recorded Client Recorded Date Recorded By Document 05/11/18 09:44 MW [id number] 05/11/18 09:56 MW Wound Center Nurse 2 [Procedure/Treatment] #2 Left LATERAL BKA Musculoskeletal: No Muscle Wasting Neurological: Cranial nerves II-XII grossly intact Psych/Mental Status: Normal Affect Debridement Note Post-Debridement Measurements/Treatment WC - Nurse 2 - General Ulcer CM Notes Start: 05/11/18 08:20 Freq: Status: Active Protocol: Activity Type Activity Date Activity User E-Sign Co-Sign Detail Recorded Client Recorded Date Recorded By Document 05/11/18 09:44 MW [id number] 05/11/18 09:56 MW Wound Center Nurse 2 #2 Left LATERAL BKA -Time 09:44 -Correct Patient Yes -Correct Side, Site, Position Yes -Correct Procedure Yes Wound debrided: Left BKA medial Wound Grade/Stage: Stage III Type of Debridement: Excisional debridement Anesthesia Used: 4% Lidocaine Solution Depth: Down to and including healthy tissue Percentage of wound debrided: 100 Instrument Used: 7mm curette Tissue Removed: Slough and devitalized tissue Severity: Fat Layer Exposed Amount of bleeding with debridement: Mild Bleeding Controlled with: Pressure Patient tolerated procedure well - Additional Wound Wound debrided: Left BKA stump lateral Wound Grade/Stage: Stage II Type of Debridement: Excisional debridement Anesthesia Used: 4% Lidocaine Solution Depth: Down to and including healthy tissue, in the subcutaneous layer Percentage of wound debrided: 100 Instrument Used: 7mm curette Tissue Removed: Slough and devitalized tissue Severity: Fat Layer Exposed Amount of bleeding with debridement: Mild Bleeding Controlled with: Pressure Patient tolerated procedure: Patient tolerated procedure well Assessment/Plan Active Problems Status post below knee amputation of left lower extremity (Chronic) Non-healing surgical wound (Chronic) Left BKA Stump. Ulcer of left lower extremity with fat layer exposed (Chronic) Left BKA stump. Peripheral vascular disease (Acute) Assessment: Same as above. Peripheral vascular Disease. Plan: Debridement of both ulcers done as documented above. Procedure was well-tolerated. Malodor noted from the medial surgical wound, tunnel at 2 o'clock position. Cultures taken. Continue wound VAC at 125 mmHg. White foam into tunnel. Continue increased protein intake/supplements. Antibiotics if indicated per culture and sensitivity. Will request records from [facility] and other physicians. She was advised to call with any concerns or questions. Follow-up in 1 week. This note was generated with [employer] software. It may contain incorrect words, spelling, and punctuation that were not noted in checking the note before signing. 05/16/18 1310 <Electronically signed by Neftali Aldridge MD> Date Neftali Aldridge MD CC: Signed Observed: 05/11/2018 Status: F Source: [place] CULTURE, WOUND 9:50 AM [facility] REPOSITORY Comments: STUMP WOUND Gram Stain Gram Stain 4+ Gram positive cocci Rare Gram negative rods 3+ Red Blood Cells No Epithelial cells Wound Culture #3 Gram positive radha suggestive of a diptheroid. There are no CLSI standards for interpretation of this Drug/Organism combination. ORGANISM 1: Enterobacter cloacae complex Amount Growth 1+ ORGANISM 2: Strep not Strep pneumo Amount Growth 3+ ORGANISM 3: Gram positive radha Amount Growth 3+ Enterobacter cloacae complex: REACTION Amoxacillin/Clavulanic Acid $ >=32 R Cefazolin $ >=64 R Cefepime $ <=1 S Ceftriaxone $ <=1 S Ciprofloxacin $ <=0.25 S Ertapenim $$$ <=0.5 S Gentamicin $ <=1 S Imipenem *NF 0.5 S Levofloxacin $ <=0.12 S Piperacillin/Tazobactam $$ <=4 S Tobramycin $ <=1 S Trimethoprim/Sulfametho $ <=20 S (NF) indicates non-formulary drug at [facility]. Approval by Infectious Disease Specialist required before non-formulary drugs may be ordered and/or dispensed. Performed By: #### M100.1400 #### [facility] [address] [place], [address] CNDS Observed: 05/03/2018 Status: COMPLETED Source: [place] 6:10 PM CLINIC OTHER CAMPUS REPOSITORY HNO ID: [id number] Author: Luis Daniel Alfredo Service: General Internal Medicine Author Type: Physician Type: Discharge Summaries Filed: 05/04/2018 1:19 PM Note Text: DISCHARGE SUMMARY PATIENT NAME: eNil Mendenhall ADMISSION DATE: 05/02/2018 DISCHARGE DATE: 05/03/2018 ATTENDING PHYSICIAN: Luis Daniel Alfredo Code Status: Not on file Highest Readmission Risk Score: 16 The 30 day readmissions risk score is derived from an internally validated risk model which evaluates patient level characteristics, utilization history, medication orders and lab results up until the day of discharge. Patients with a score of 40 or above are considered highest risk for readmission. Specific patient level drivers will be listed at the bottom of the summary. REASON FOR HOSPITALIZATION: elective left bk stump wound debridement DIAGNOSIS: Primary Diagnosis: Unhealing stump wound Secondary Diagnoses: HTN, PVD, SLE, AISSATOU OPERATIONS DURING HOSPITALIZATION: Debridement muscle/fascia, left bk stump wound debridement PROCEDURES DURING HOSPITALIZATION: No procedures performed HOSPITAL COURSE: This is a 52 year old female who presents for scheduled for , left bk stump wound debridement. Recent she had LLE BKA, the wound never healed per the patient, she had a fall with wound breakdown, on 04/18/18 she had Excisional debridement left?lower extremity sq tissue, muscle and fat, she received kefles for 10 days And wound vac was placed, she came to see Dr Hinojosa for painful dressing changes, he did recommend a second left bk stump wound debridement which was done this admission. Wound vac is applied again the patient is going to be discharged with home care Transitions of Care Critical Issues: SPECIALIST FOLLOW-UP: Dr Flo Hinojosa LABS AND PROCEDURES PENDING AT DISCHARGE: No pending results. CONSULTING TEAMS DURING HOSPITALIZATION: vascular PATIENT CONDITION AT DISCHARGE: Good DISCHARGE DISPOSITION: Home with Home Health Care Discharge Physical Exam: VITAL SIGNS: BP 133/67 Pulse 70 Temp 37 ?C (98.6 ?F) (Oral) Resp 16 Ht 167.6 cm (5' 5.98) Wt 79.3 kg (174 lb 13.2 oz) LMP 08/07/2011 SpO2 98% BMI 28.23 kg/m? GENERAL: Alert, no distress, cooperative SKIN: Skin color, texture, turgor normal. No rashes or lesions. HEAD/SINUSES: No significant findings EYES: PERRLA, EOMI NECK: No jugulovenous distention, No carotid bruits, Carotid pulse normal contour, Supple BACK: Back symmetric, Normal curvature, ROM normal, No CVAT. LUNGS: Lungs clear to auscultation, Good diaphragmatic excursion CARDIAC: Normal S1 and S2; no rubs, murmurs, or gallops ABDOMEN: Abdomen soft, non-tender, BS normal, No masses or organomegaly EXTREMITIES: L BKA. INFORMATION PROVIDED TO PATIENT: (To pull info documented from the DC Instruct Orderset Complete O/S First): DIET: Resume pre-hospital diet ACTIVITY: Resume pre-hospital activity WOUND/SURGICAL SITE CARE: Wound/Surgical Site Care Some bleeding from the wound/surgical site can be expected. If excessive, see a doctor at once ALLERGIES Allergen Reactions - Horizant [Gabapenti* Mental Status Change - Wellbutrin [Bupropi* Other: See Comments Took med on Wednesday Woke up 3 days later in hospital DISCHARGE MEDICATION: Discharge Medication List as of 05/03/2018 5:45 PM START taking these medications oxyCODONE-acetaminophen (PERCOCET) 5-325 mg tablet Take 1 tablet by mouth every 4 hours as needed for Pain for up to 7 days. Print RX, Disp-40 tablet, R-0 Dx: 1. Postoperative pain CONTINUE these medications which have NOT CHANGED ergocalciferol, vitamin D2, (VITAMIN D) 50,000 unit capsule Take 50,000 Units by mouth once each week. Historical Med acetaminophen (TYLENOL) 325 mg tablet Take 2 tablets by mouth every 6 hours. OTC senna-docusate (SENNA-S) 8.6-50 mg per tablet Take 1 tablet by mouth twice daily. OTC polyethylene glycol 3350 (MIRALAX, GLYCOLAX) 17 gram packet Take 1 Packet by mouth once daily as needed (constipation). OTC apixaban (ELIQUIS) 5 mg tab(s) Take 1 tablet by mouth twice daily. starting 02/28/2018 at 9 pm Med Update pravastatin (PRAVACHOL) 80 mg tablet Take 80 mg by mouth once daily. Historical Med docusate sodium (COLACE) 100 mg capsule Take 1 capsule by mouth twice daily. Print RX, Disp-60 capsule, R-2 NIFEdipine ER (PROCARDIA XL) 30 mg 24 hr tablet Take 1 tablet by mouth once daily. Normal, Disp-30 tablet, R-3 Cholecalciferol, Vitamin D3, 5,000 unit cap Take 5,000 Units by mouth once daily. Historical Med aspirin 81 mg chewable tablet Take 1 tablet by mouth once daily. OTC, R-0 lamoTRIgine (LAMICTAL) 200 mg tablet Take 200 mg by mouth once daily. Historical Med aripiprazole(ABILIFY 20 MG TAB) Take one(1) tablet daily. Med Update, R-0 FUTURE APPOINTMENTS: Follow Up with Dr Hinojosa in 2-4 weeks Discharge Information Row Name Orders Only from 04/26/2018 in Vascular Surgery Admission (Discharged) from 05/02/2018 in [facility] ? [employer] [facility] Phone# ? Fax# ? [employer] [facility] will resume services on 05-04-18 and will change your wound VAC dressing that day; they will call you to set up the time Start of Care ? 05/04/18 The patient's risk for 30-day readmission is determined using the following contributing factors: Pt variables contributing to increased readmission risk: 12 Most Recent BUN Result 3 Number of Previous ED Visits (6 mos.) 3 Number of Hospitalizations (12 mos.) 1 Previous ED Visit (6 mos.)? 1 Insurance - Medicare 1 Discharge Disposition - Home TIME OF CARE: Discharge Management: I personally spent less than 30 minutes involved in the discharge management of this patient. SIGNATURE: Luis Daniel Alfredo MD PAGER/CONTACT #: [phone] DATE: May 04, 2018 TIME: 1:12 PM NURSING PROG Observed: 05/03/2018 Status: COMPLETED Source: [place] 2:43 PM CLINIC OTHER CAMPUS REPOSITORY HNO ID: [id number] Author: Marc Mari) SARAH Barber Service: (none) Author Type: Registered Nurse Type: Nursing Progress Note Filed: 05/03/2018 7:03 PM Note Text: Nursing Progress Note Patient Name: Neil Mendenhall [id number] Daily Note: Assessment complete, see npr, pt aox3, medicated for pain with no SOB, K was slightly low at 3.[address] Alfredo , no orders at this time, pt to be D/[place] later today, wound vac draining per orders, no current needs, will cont to monitor. F/U with SHARAD Monterroso on pt's K and will order 20 of K-DUR Removed hospital wound vac and did wet to dry dressing change, home care will re-apply wound vac in the AM. This note was completed by: Marc Barber RN CASE MANAGEM Observed: 05/03/2018 Status: COMPLETED Source: [place] 1:35 PM [facility] OTHER CAMPUS REPOSITORY [facility] ID: [id number] Author: Kayleen (Rn) SARAH Anderson Service: Care Management Author Type: Registered Nurse Type: Care Mgt Progress Note Filed: 05/03/2018 1:38 PM Note Text: CARE MANAGEMENT DISCHARGE NOTE SERVICE DATE: 05/03/2018 SERVICE TIME: 1:36 PM LOS: 0 days Admission Date: 05/02/2018 DISCHARGE ARRANGEMENT (list agency and phone number) Home Home Care - Nursing Provider: Danna [facility] Phone: on file CAREGIVER ASSESSMENT: Caregiver is ready, willing and able to meet the patient's needs as recommended by the inter-professional team? Yes Patient's transition needs and plan for meeting these needs: Danna [place] Does the patient have an acute stroke diagnosis, or has the patient had a stroke during this admission? No HANDOFF COMMUNICATION: Primary Care Physician: Dheeraj Trujillo Phone Number: on file TRANSPORTATION ARRANGEMENTS: Car with sister ADDITIONAL CONTACT RESOURCES: / Needs Prior to Discharge: Ready for Discharge Pt is discharged home with [facility] SN for Wound VAC care and dressing changes; SOC is 05-05-18; pt's sister will transport pt home; CM remains available for d/c planning needs. SIGNATURE: Kayleen Anderson RN PATIENT NAME: Neil Mendenhall DATE: May 03, 2018 TIME: 1:35 PM PAGER/CONTACT #: [phone] PROGRESS Observed: 05/03/2018 Status: COMPLETED Source: [place] 11:57 AM CLINIC OTHER CAMPUS REPOSITORY HNO ID: [id number] Author: Carlin Rebolledo Service: Vascular Surgery Author Type: Physician Type: Progress Notes Filed: 05/03/2018 12:00 PM Note Text: INPATIENT PROGRESS NOTE SERVICE DATE: 05/03/2018 SERVICE TIME: 11:58 AM PRIMARY SERVICE: Alnura Subjective CHIEF COMPLAINT: open wound left below knee stump INTERVAL HPI: wound vac in place, moderate pain. Current hospital medications: HYDROmorphone 0.2 mg injection (DILAUDID) 0.2 mg INTRAVENOUS q 3 H PRN oxyCODONE-acetaminophen 5-325 mg 1-2 tablet (PERCOCET) 1-2 tablet ORAL q 4 H PRN lamoTRIgine 200 mg tab(s) (LaMICtal) 200 mg ORAL DAILY simvastatin 40 mg tab(s) (ZOCOR) 40 mg ORAL DAILY ARIPiprazole 20 mg tab(s) (ABILIFY) 20 mg ORAL DAILY NIFEdipine XL 30 mg tab(s) (ADALAT CC) 30 mg ORAL DAILY aspirin 81 mg chewable tab(s) 81 mg ORAL DAILY heparin 5,000 Units injection 5,000 Units SUBCUTANEOUS q 12 H 0.9% NaCl 2-10 mL 2-10 mL INTRAVENOUS q 12 H ondansetron 4 mg tab(s) (ZOFRAN) 4 mg ORAL q 6 H PRN ondansetron (PF) 4 mg injection (ZOFRAN) 4 mg INTRAVENOUS q 6 H PRN Objective PHYSICAL EXAM: BP 141/66 Pulse 80 Temp (Src) 98.5 (Oral) Resp 16 Ht 5' 5.984 (1.68m) Wt 174 lb 13.2 oz (79.3kg) SpO2 95% LMP 08/07/2011 BMI 28.23 kg/(m2). Physical Exam Performed GENERAL: Alert, Mild Distress, Cooperative EXTREMITIES: left bk stump wound covered with wound vac DATA: Diagnostic tests reviewed for today's visit: Most recent labs CBC, Coags, BMP, Mg, Phos Assessment/Plan Principal Problem (Resolved) Active Problems: Below knee amputation status, open wound POA: Yes Assessment AND Plan: wound stable with wound vac. OK for discharge today with wound vac in place. Pt to follow with [facility]. Dr. Tera méndez. Medication and Non-Pharmacologic VTE Prophylaxis/Anticoagulants Anticoagulant AND Antiplatelet Medications Start Dose Route Frequency Ordered Stop 05/02/18 2200 heparin 5,000 Units injection (Surgical Moderate Risk ) 5,000 Units SUBCUTANEOUS EVERY 12 HOURS 05/02/18 1650 -- 05/02/18 1700 aspirin 81 mg chewable tab(s) 81 mg ORAL DAILY 05/02/18 1650 -- 05/02/18 1700 pneumatic compression stockings ([place]) 05/02/18 1130 activity - mobilize patient ([place]) VTE Prophylaxis: VTE prophylaxis appropriate SIGNATURE: Carlin Rebolledo MD PATIENT NAME: Neil Mendenhall DATE: May 03, 2018 TIME: 11:58 AM PAGER: [phone] CASE MANAGEM Observed: 05/03/2018 Status: COMPLETED Source: [place] 10:58 AM [facility] OTHER CAMPUS REPOSITORY O ID: [id number] Author: Kayleen (Rn) SARAH Anderson Service: Care Management Author Type: Registered Nurse Type: Care Mgt Progress Note Filed: 05/03/2018 11:01 AM Note Text: MULTIDISCIPLINARY ROUNDS SERVICE DATE: 05/03/2018 ADMISSION DATE: 05/02/2018 SERVICE TIME: 10:58 AM ANTICIPATED D/C DATE: TBD Problem List: ACTIVE PROBLEM LIST Bipolar affective Carotid Artery Disease (Hcc) Pvd (Peripheral Vascular Disease) (Hcc) Postoperative Pain Arterial Occlusion, Lower Extremity (Hcc) Bipolar disorder (HCC) Hyperlipidemia Neuropathic Pain Aissatou (Obstructive Sleep Apnea) Smoker Thrombus S/P Bka (Below Knee Amputation) Unilateral, Left (Hcc) Htn (Hypertension) Lupus Anticoagulant With Hypercoagulable State (Hcc) Status Post Surgery Left Leg Pain Attendees Present at Rounds: Manager Strategic: Jarret Nurse [employer] Spanish Teacher/Swimmer Nurse [employer] Spanish Teacher: Natacha Patient: Neil Mendenhall Lead Web Developer: Eric Staff Nurse: Dwain Needs Discussed on Rounds: Discharge Needs Plan of Care Anticipated Discharge Disposition: Home with Home Health Care Last Vitals: BP 141/66 Pulse 80 Temp (Src) 98.5 (Oral) Resp 16 Ht 5' 5.984 (1.68m) Wt 174 lb 13.2 oz (79.3kg) SpO2 95% LMP 08/07/2011 BMI 28.23 kg/(m2). Met with pt at bedside; discussed POC and d/c need and plans; pt to go home and resume SN care w [facility] Nursing: DOCUMENTED BY: Kayleen Anderson RN PATIENT NAME: Neil Mendenhall DATE: May 03, 2018 TIME: 10:58 AM CSN: [id number] HISTORY PHYSICAL Observed: 05/03/2018 Status: COMPLETED Source: [place] 10:25 AM [facility] OTHER CAMPUS REPOSITORY O ID: [id number] Author: Luis Daniel Alfredo Service: General Internal Medicine Author Type: Physician Type: HANDP Filed: 05/03/2018 10:40 AM Note Text: HISTORY AND PHYSICAL EXAMINATION SERVICE DATE: 05/03/2018 SERVICE TIME: 10:27am PRIMARY CARE PHYSICIAN: Dheeraj Trujillo MD Subjective CHIEF COMPLAINT: scheduled for Debridement muscle/fascia, left bk stump wound debridement HPI: This is a 52 year old female who presents for scheduled for Debridement muscle/fascia, left bk stump wound debridement. Recent she had LLE BKA, the wound never healed per the patient, she had a fall with wound breakdown, on 04/18/18 she had Excisional debridement left?lower extremity sq tissue, muscle and fat, she received kefles for 10 days And wound vac was placed, she came to see Dr Hinojosa for painful dressing changes, he did recommend a second left bk stump wound debridement which was done yesterday ? FUNCTIONAL STATUS: Independent PAST MEDICAL HISTORY Diagnosis Date - Below knee amputation status, left (HCC) - Bipolar affective disorder (HCC) - Carotid artery disease ([facility]) - HTN (hypertension) - Lupus - AISSATOU (obstructive sleep apnea) non-compliant with CPAP use - PVD (peripheral vascular disease) ([facility]) - Tobacco abuse PAST SURGICAL HISTORY Procedure Laterality Date - ANGIO TRANSLUM BALL ANGIO ANGELO 2008 [id number] - BYPASS GRAFT OTHR,FEM-POP - COLONOSCOPY - PAST SURGICAL HISTORY OF Left 02/18/2018 below the knee amputation - PAST SURGICAL HISTORY OF Left 04/18/2018 DEBRIDEMENT MUSCLE/FASCIA FIRST 20 SQ CM OR LESS LOWER EXTREMITY - PAST SURGICAL HISTORY OF appy FAMILY HISTORY Problem Relation Age of Onset - Diabetes Mother - No Known Problems Father - Cancer Sister blood Social History Substance Use Topics - Smoking status: Former Smoker Packs/day: 0.50 Years: 25.00 Types: Cigarettes Quit date: 09/01/2009 - Smokeless tobacco: Never Used Comment: currently using electronic cigarette - Alcohol use No Prescriptions Prior to Admission: acetaminophen (TYLENOL) 325 mg tablet Take 2 tablets by mouth every 6 hours. Disp: Rfl: 05/01/2018 at 1900 pravastatin (PRAVACHOL) 80 mg tablet Take 80 mg by mouth once daily. Disp: Rfl: 05/01/2018 at Unknown time NIFEdipine ER (PROCARDIA XL) 30 mg 24 hr tablet Take 1 tablet by mouth once daily. Disp: 30 tablet Rfl: 3 05/02/2018 at Unknown time lamoTRIgine (LAMICTAL) 200 mg tablet Take 200 mg by mouth once daily. Disp: Rfl: 05/02/2018 at Unknown time aripiprazole(ABILIFY 20 MG TAB) Take one(1) tablet daily. Disp: Rfl: 0 05/02/2018 at Unknown time ergocalciferol, vitamin D2, (VITAMIN D) 50,000 unit capsule Take 50,000 Units by mouth once each week. Disp: Rfl: 05/01/2018 senna-docusate (SENNA-S) 8.6-50 mg per tablet Take 1 tablet by mouth twice daily. (Patient not taking: Reported on 04/29/2018 ) Disp: Rfl: Unknown at Unknown time polyethylene glycol 3350 (MIRALAX, GLYCOLAX) 17 gram packet Take 1 Packet by mouth once daily as needed (constipation). Disp: Rfl: Unknown at Unknown time apixaban (ELIQUIS) 5 mg tab(s) Take 1 tablet by mouth twice daily. starting 02/28/2018 at 9 pm Disp: Rfl: 04/29/2018 docusate sodium (COLACE) 100 mg capsule Take 1 capsule by mouth twice daily. Disp: 60 capsule Rfl: 2 Unknown at Unknown time Cholecalciferol, Vitamin D3, 5,000 unit cap Take 5,000 Units by mouth once daily. Disp: Rfl: Unknown at Unknown time aspirin 81 mg chewable tablet Take 1 tablet by mouth once daily. Disp: Rfl: 0 05/01/2018 ALLERGIES Allergen Reactions - Horizant [Gabapenti* Mental Status Change - Wellbutrin [Bupropi* Other: See Comments Took med on Wednesday Woke up 3 days later in hospital COMPLETE REVIEW OF SYSTEMS: PAIN ASSESSMENT: CURRENTLY HAVING PAIN; Pain is under control with medication after the surgery GENERAL: No weight loss, malaise or fevers HEENT: Negative for frequent or significant headaches, No changes in hearing or vision, no nose bleeds or other nasal problems NECK: Negative for lumps, goiter, pain and significant neck swelling RESPIRATORY: Negative for cough, hemoptysis, wheezing, COPD, dyspnea or shortness of breath CARDIOVASCULAR: Negative for chest pain, leg swelling, hypertension, CHF or palpitations GI: No nausea, vomiting, or diarrhea : No history of dysuria, frequency or incontinence MRI TECHNOLOGIST: Negative for abnormal vaginal bleeding, abnormal vaginal discharge MUSCULOSKELETAL: Negative for joint pain or swelling, back pain or muscle pain SKIN: Negative for lesions, rash, and itching PSYCH: Negative for sleep disturbance, mood disorder and recent psychosocial stressors HEMATOLOGY/LYMPHOLOGY: Negative for prolonged bleeding, bruising easily or swollen nodes ENDOCRINE: Negative for cold or heat intolerance, polyuria, polydipsia and goiter NEURO: No history of headaches, syncope, paralysis, seizures or tremors Objective PHYSICAL EXAM: PHYSICAL EXAMINATION: General appearance: Well appearing, alert, in no acute distress, well-hydrated, well nourished. Skin: Skin color, texture, turgor normal, no suspicious rashes or lesions Head: Normocephalic, no masses, lesions, tenderness or abnormalities Eyes: Anicteric sclera. Pupils are equally round and reactive to light. Extraocular movements are intact. Neck: Supple, no adenopathy; thyroid symmetric, normal size, no bruits Back: Normal exam Lungs: Lungs clear to auscultation. No wheezing, rhonchi, rales Heart: RRR without murmur, gallop, or rubs. No ectopy Abdomen: Normal abdominal exam, Abdomen soft, non-tender. Bowel sounds normal. No masses, organomegaly Extremities: No deformities, edema, skin discoloration, clubbing or cyanosis. Good capillary refill. Musculoskeletal: No joint swelling, deformity, or tenderness Peripheral pulses: Normal Neuro: Negative. BP 141/66 Pulse 80 Temp (Src) 98.5 (Oral) Resp 16 Ht 5' 5.984 (1.68m) Wt 174 lb 13.2 oz (79.3kg) SpO2 95% LMP 08/07/2011 BMI 28.23 kg/(m2). DATA: Diagnostic tests reviewed for today's visit: Most recent labs and imaging results. Assessment/Plan 1. S/P left bk stump wound debridement- tolerated the procedure very well - pain is under control - wound vac was placed - home care is set up - bmp and CBC from today was ordered - no need for Abx per vascular surgery - plan to DC when it is OK with surgery 2. HTN - controlled 3. Hyperlipidemia on simvastatin 4. DVT ppx 5. Lupus in remission now Medication and Non-Pharmacologic VTE Prophylaxis/Anticoagulants Anticoagulant AND Antiplatelet Medications Start Dose Route Frequency Ordered Stop 05/02/18 2200 heparin 5,000 Units injection (Surgical Moderate Risk ) 5,000 Units SUBCUTANEOUS EVERY 12 HOURS 05/02/18 1650 -- 05/02/18 1700 aspirin 81 mg chewable tab(s) 81 mg ORAL DAILY 05/02/18 1650 -- 05/02/18 1700 pneumatic compression stockings ([place] 05/02/18 1130 activity - mobilize patient ([place]) VTE Prophylaxis: VTE prophylaxis appropriate SIGNATURE: Luis Daniel Alfredo MD PATIENT NAME: Neil Mendenhall DATE: May 03, 2018 TIME: 10:26 AM PAGER/CONTACT #: [phone] CASE MGT INIT Observed: 05/03/2018 Status: COMPLETED Source: [facility] 9:54 AM CLINIC OTHER CAMPUS REPOSITORY HNO ID: [id number] Author: Kayleen (Rn) SARAH Anderson Service: Care Management Author Type: Registered Nurse Type: Care Mgt Initial Assessment Filed: 05/03/2018 10:03 AM Note Text: CARE MANAGEMENT: ASSESSMENT AND DISCHARGE PLAN SERVICE DATE: 05/03/2018 SERVICE TIME: 9:54 AM PRIMARY CARE PHYSICIAN: Dheeraj Trujillo MD / confirmed w/ pt ADMISSION STATUS: Extended Recovery Needs Prior to Discharge: To Be Determined;Discharge 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 Yes Is This a Planned Readmission? No: Infection Followed Up with Appointment Prior to Admission: No appointment scheduled Where Did the Patient Come From? Home Intervention Taken to Avoid Future Readmission? Wound debrided Advance Directive: Current Advance Directive: None Manager Strategic Attempted to Assist with AD Completion: Yes Action: Education Provided;Patient Unwilling Health Literacy: 1. How often do you need to have someone help you when you read instructions, pamphlets, or other written material from your doctor or pharmacy? Sometimes - 3 2. How confident are you filling out medical forms by yourself? Somewhat - 3 If Patient scores > 3 on either question, the following interventions were put into place: Use of plain language and active listening with Patient and family, Teach back methods employed to ensure comprehension, Use concrete and specific phrases, avoid medical jargon, Forms of communication used with patient and family, Sit with Patient, Gave Patient the opportunity to ask questions and pt states her sister helps her with any forms FUNCTIONAL AND COGNITIVE/BEHAVIORAL PRIOR TO ADMISSION: Baseline Mental Status: Alert AND Oriented, Person, Place , Time and Situation Functional Status: Independent Does Patient Currently Receive Any Community Services or Home Care? Home Health Care Agency: [employer] [facility]; Phone: on file; Active. Equipment Prior to Admission: Tub bench/chair Walker Has the Patient Been in a Group Home Facility in the Past 30 days? No SOCIAL: Living Arrangement: Home Lives With: Alone Financial Resources: Disabled Primary Contact: Extended Emergency Contact Information Primary Emergency Contact: Mckinley Chacko [place] Mobile Relation: Sister Secondary Emergency Contact: Laney Mendenhall Mobile Relation: Sister Supportive: Yes Other Important Patient Contacts: None Caregiver Assessment: Caregiver is ready, willing and able to meet the patient's needs as recommended by the inter-professional team? Yes Patient's transition needs and plan for meeting these needs: resume current [facility] w/ [employer]vantage [facility] Does the patient have an acute stroke diagnosis, or has the patient had a stroke during this admission? No Medication Adherence: I am convinced of the importance of my prescription medication: Agree completely - 0 I worry that my prescription medication will do more harm than good to me Disagree completely - 0 I feel financially burdened by my [id number] expenses for my prescription medication: Disagree completely - 0 Patient is categorized as low risk < 2 Are you interested in bedside delivery of your medications? No Food Concerns: In the Last Month, Have You had Trouble Getting Food? No trouble getting food During the Last Month, Have You Worried Whether Your Food Would Run Out Before You Had Enough Money to Buy More? No Is the Patient Psychosocially Complex? No ASSESSMENT AND PLAN: Medical Needs: 2 or more chronic diseases Psychosocial Needs: Mental Health Diagnosis: BiPolar FREEDOM OF CHOICE EXPLAINED: N/A POTENTIAL TRANSITION PLANS Home Home Care To Be Determined Met with pt at bedside; explained role of CM; pt visibly irritated at having to terminate her phone call when I came in the room and asked to speak with her. Pt would not maintain eye contact and held her phone in her hand staring at it while I asked questions; she did answer appropriately; pt states she is IPTA; lives at home alone and her sisters help her as well as [facility] SN who comes to her home for wound care; pt came to [facility] from home and already has a wound VAC set up at home; pt wants to resume her current [facility] services with [facility]; will send referral and see if they need anything to resume care; pt states her sister will take her home at d/c; CM remains available for d/c planning needs SIGNATURE: Kayleen Anderson RN PATIENT NAME: Neil Mendenhall DATE: May 03, 2018 TIME: 9:54 AM PAGER/CONTACT #: [phone] NURSING PROG Observed: 05/03/2018 Status: COMPLETED Source: [facility] 3:19 AM CLINIC OTHER CAMPUS REPOSITORY O ID: [id number] Author: Celena (Rn) SARAH Henao Service: (none) Author Type: Registered Nurse Type: Nursing Progress Note Filed: 05/03/2018 3:21 AM Note Text: Nursing Progress Note Patient Name: Neil Mendenhall Patient Location: [id number]/[id number]* Daily Note: Assessment complete, see NPR. Pt complains of left leg pain. Medicated per emar. Wound vac intact. Continuous suction at 125 mg. Denies any further needs. Call light in reach. Instructed to call with any needs. Bed alarm on. This note was completed by: Celena Henao RN NURSING PROG Observed: 05/02/2018 Status: COMPLETED Source: [facility] 3:00 PM [facility] REPOSITORY HNO ID: [id number] Author: Berkley JeffriesRn) SARAH Honeycutt Service: (none) Author Type: Registered Nurse Type: Nursing Progress Note Filed: 05/02/2018 4:25 PM Note Text: Nursing Progress Note Patient Name: Neil Mendenhall Patient Location: [id number]/* Transfer Note: Patient transferred into room/unit 5N 505-2 from PACU via cart. Wound Vac in place to LT BKA in stable condition. Actions taken: No futher actions taken at this time. Will continue to monitor and check with patient. This note was completed by: Berkley Honeycutt RN NURSING PROG Observed: 05/02/2018 Status: COMPLETED Source: [facility] 3:00 PM [facility] REPOSITORY HNO ID: [id number] Author: Berkley JeffriesRn) SARAH Honeycutt Service: (none) Author Type: Registered Nurse Type: Nursing Progress Note Filed: 05/02/2018 8:03 PM Note Text: Nursing Progress Note Patient Name: Neil Mendenhall Patient Location: [id number]* Daily Note: 1500 pt from PACU via cart, Wound Vac @ [address] to LT BKA, dressing intact, no drainage in tubing or canister. Pt A/O, awake, NAD, no c/o pain at this time; pt's sister Laney at bedside. Pt's walker placed in room at bedside. 1630 Dr Lopez. physician president spoke w Dr Alfredo and sts he will review chart / orders. 1800 pt falls asleep during conversation; RR 12, resp. shallow; wakes easily to verbal stim; will continue to monitor. This note was completed by: Berkley Honeycutt RN ANEReyes POST Observed: 05/02/2018 Status: COMPLETED Source: [facility] 1:18 PM [facility] REPOSITORY HNO ID: [id number] Author: Bruce Castillo Service: Anesthesiology Author Type: Anesthesiologist Type: Anesthesia PostOp Filed: 05/02/2018 1:18 PM Note Text: POST ANESTHESIA EVALUATION NOTE SERVICE DATE: 05/02/2018 SERVICE TIME: 1:18 PM : 1965 Vitals: 05/02/18 1200 05/02/18 1215 05/02/18 1230 05/02/18 1300 BP: 155/71 143/77 139/70 135/73 Pulse: 76 72 79 64 Resp: 16 16 18 16 Temp: TempSrc: SpO2: 98% 97% 98% 99% Validated Vital Signs: Yes No apparent anesthetic complications. The patient is appropriately hydrated with stable respiratory and cardiovascular status. Patient has safe and adequate airway control. The patient has appropriate pain relief and no significant post operative nausea or vomiting. The patient has achieved baseline mental status. Intra-Operative Events: No Significant Anesthesia Events Further assessment by Anesthesia Service: None Other Remarks: SIGNATURE: Bruce Castillo MD PATIENT NAME: Neil Mendenhall DATE: May 02, 2018 TIME: 1:18 PM PAGER/CONTACT #: [phone] ANEReyes PREOP Observed: 05/02/2018 Status: COMPLETED Source: [facility] 10:00 AM [facility] REPOSITORY HNO ID: [id number] Author: Bruce Castillo Service: Anesthesiology Author Type: Anesthesiologist Type: Anesthesia PreOp Filed: 05/02/2018 10:01 AM Note Text: REGIONAL ANESTHESIOLOGY DAY OF SURGERY NOTE PATIENT NAME: Neil Mendenhall : 1965 Procedure(s) (LRB): DEBRIDEMENT MUSCLE/FASCIA FIRST 20 SQ CM OR LESS LOWER EXTREMITY (Left) Surgeon(s): Carlin Rebolledo Estimated body mass index is 28.25 kg/m? as calculated from the following: Height as of 04/29/18: 167.6 cm (5' 6). Weight as of 04/29/18: 79.4 kg (175 lb). ASA Class: 3 Adequate NPO status: Yes Allergies: ALLERGIES Allergen Reactions - Horizant [Gabapenti* Mental Status Change - Wellbutrin [Bupropi* Other: See Comments Took med on Wednesday Woke up 3 days later in hospital Airway Assessment: MP 3; Neck ROM: Full ROM without neurologic symptoms; Airway Evaluation: No significant abnormalities Dentition: Complete upper dentures Complete lower dentures GERD: GERD well controlled with no positional symptoms. Symptoms of Sleep Apnea: Formally diagnosed but non-compliant with therapy Most recent lab results: Hemoglobin 10.8 04/19/2018 Hematocrit 34.0 04/19/2018 Potassium 3.4 04/19/2018 Platelet Count 438 04/19/2018 PT Sec 9.9 02/19/2018 APTT 26.9 02/22/2018 PT INR 1.0 02/19/2018 Creatinine 0.74 04/19/2018 HCG Qualitative, Urine Negative 04/21/2014 Vitals: 05/02/18 0843 BP: 128/65 Pulse: 75 Resp: 15 Temp: 36.2 ?C (97.2 ?F) TempSrc: Temporal Artery SpO2: 99% Previous Anesthesia: No history of adverse event Family history of anesthetic problems: None Additional Physical Exam: Lungs: Lungs clear to auscultation. Good diaphragmatic excursion. Cardiac: Regular rate and rythm Additional pertinent findings: None Other Medical Problems/ Important Considerations: Denies chest pain and SOB with exertion. Does not exercise. Denies change in functional capacity. Chronic Beta Juan medication administered within 24 hours: N/A Anesthetic risks, benefits, alternatives, personnel and consent discussed: Yes Patient agrees to proceed: Yes Blood Products: Not anticipated for this procedure Anesthetic Plan: General LMA; Standard ASA Monitors Pain Management Plan: Parenteral or Oral and per Surgical Service EPIC Chart Review ACTIVE PROBLEM LIST Bipolar affective Carotid Artery Disease (Hcc) Pvd (Peripheral Vascular Disease) (Hcc) Postoperative Pain Arterial Occlusion, Lower Extremity (Hcc) Bipolar disorder (HCC) Hyperlipidemia Neuropathic Pain Aissatou (Obstructive Sleep Apnea) Smoker Thrombus S/P Bka (Below Knee Amputation) Unilateral, Left (Hcc) Htn (Hypertension) Lupus Anticoagulant With Hypercoagulable State (Hcc) Status Post Surgery Left Leg Pain PAST MEDICAL HISTORY Diagnosis Date - Below knee amputation status, left (HCC) - Bipolar affective disorder (HCC) - Carotid artery disease (HCC) - HTN (hypertension) - Lupus - AISSATOU (obstructive sleep apnea) non-compliant with CPAP use - PVD (peripheral vascular disease) ([facility]) - Tobacco abuse PAST SURGICAL HISTORY Procedure Laterality Date - ANGIO TRANSLUM BALL ANGIO ANGELO 2008 [id number] - BYPASS GRAFT OTHR,FEM-POP - COLONOSCOPY - PAST SURGICAL HISTORY OF Left 02/18/2018 below the knee amputation - PAST SURGICAL HISTORY OF Left 04/18/2018 DEBRIDEMENT MUSCLE/FASCIA FIRST 20 SQ CM OR LESS LOWER EXTREMITY - PAST SURGICAL HISTORY OF appy FAMILY HISTORY Problem Relation Age of Onset - Diabetes Mother - No Known Problems Father - Cancer Sister blood Social History: Social History Substance Use Topics - Smoking status: Former Smoker Packs/day: 0.50 Years: 25.00 Types: Cigarettes Quit date: 09/01/2009 - Smokeless tobacco: Never Used Comment: currently using electronic cigarette - Alcohol use No No current facility-administered medications on file prior to encounter. Current Outpatient Prescriptions on File Prior to Encounter: acetaminophen (TYLENOL) 325 mg tablet Take 2 tablets by mouth every 6 hours. pravastatin (PRAVACHOL) 80 mg tablet Take 80 mg by mouth once daily. NIFEdipine ER (PROCARDIA XL) 30 mg 24 hr tablet Take 1 tablet by mouth once daily. lamoTRIgine (LAMICTAL) 200 mg tablet Take 200 mg by mouth once daily. aripiprazole(ABILIFY 20 MG TAB) Take one(1) tablet daily. senna-docusate (SENNA-S) 8.6-50 mg per tablet Take 1 tablet by mouth twice daily. (Patient not taking: Reported on 04/29/2018 ) polyethylene glycol 3350 (MIRALAX, GLYCOLAX) 17 gram packet Take 1 Packet by mouth once daily as needed (constipation). apixaban (ELIQUIS) 5 mg tab(s) Take 1 tablet by mouth twice daily. starting 02/28/2018 at 9 pm docusate sodium (COLACE) 100 mg capsule Take 1 capsule by mouth twice daily. Cholecalciferol, Vitamin D3, 5,000 unit cap Take 5,000 Units by mouth once daily. aspirin 81 mg chewable tablet Take 1 tablet by mouth once daily. Inpatient medications reviewed in [facility]. I have interviewed and examined the patient. I have reviewed the medical record and/or the pre-anesthesia evaluation, pertinent labs, and test results. Significant changes in the patient's condition since the History and Physical, not otherwise documented in primary service progress notes: No This contains updated information obtained within 48 hours of Surgery/Procedure. SIGNATURE: Bruce Castillo MD DATE: May 02, 2018 TIME: 10:00 AM PT ED Observed: 05/02/2018 Status: COMPLETED Source: [facility] 8:46 AM [facility] REPOSITORY HNO ID: [id number] Author: Caitie (Rn) SARAH Hubbard Service: (none) Author Type: Registered Nurse Type: Patient Education Filed: 05/02/2018 8:47 AM Note Text: PATIENT EDUCATION TOPIC: PROCEDURE / SURGERY: Pre-op Teaching: Logistics PATIENT NAME: Neil Mendenhall PATIENT LOCATION: OR POOL/FV OR POOL READINESS TO LEARN COGNITIVE ABILITY: Alert and oriented MOTIVATION TO LEARN: Eager FAMILY SUPPORT: None - Unavailable/disinterested INSTRUCTION PROVIDED TO: Patient PATIENT LEARNS BEST BY: Individual Instruction FACTORS AFFECTING LEARNING: None PHYSICAL LIMITATIONS AFFECTING LEARNING: None LEARNING RESPONSE DIAGNOSIS: ADULT: Well Adult PATIENT/FAMILY RESPONSE: Information received as demonstrated by interest and questions METHOD OF INSTRUCTION: Individual instruction FOLLOW-UP PLAN: Patient instructed to call with any further issues INSTRUCTIONAL AIDS USED: NA SUPPLEMENTAL MATERIAL PROVIDED TO PATIENT: None REFERRAL (RECOMMENDATION): None Electronically Signed By: Caitie Hubbard RN CONSULT Observed: 05/02/2018 Status: COMPLETED Source: [facility] 12:00 AM [facility] REPOSITORY HNO ID: [id number] Author: Carlin Rebolledo Service: Vascular Surgery Author Type: Physician Type: Consults Filed: 05/05/2018 8:43 AM Note Text: [facility] - Consultation NEIL MENDENHALL : 1965 AGE: 52 SEX: F CSN: [id number] HOSP SVC: [facility] LOCATION: [id number] ATTENDING PHYSICIAN: LUIS DANIEL ALFREDO DATE OF CONSULTATION: 05/02/2018 CONSULTING PHYSICIAN: Rajendra Rebolledo M.D. CHIEF COMPLAINT: Infected necrotic left below-knee stump wound. HISTORY OF PRESENT ILLNESS: This is a 52-year-old woman with known peripheral vascular disease. She has been a heavy smoker in the past. The patient has undergone multiple revascularization attempts in the left leg, all of which have failed. Dr. Aragon performed a left below-knee amputation on the patient on 02/18/2018. Unfortunately, the medial portion of the wound did not heal well. The patient has been back to Surgery several times for debridement of this portion of the wound. The patient is readmitted to [facility] at this time for further debridements. PAST MEDICAL HISTORY: 1. Peripheral vascular disease, status post multiple revascularization attempts in the left leg and eventual below-knee amputation. 2. History of carotid artery disease. MEDICATIONS: At this time include, Apixaban, Pravachol, nifedipine, aspirin, Lamictal, and Abilify. ALLERGIES: Gabapentin, Wellbutrin. SOCIAL HISTORY: The patient lives independently in [place]. She has a sister who cares for her. She stopped smoking several years ago. PHYSICAL EXAMINATION: She is a pleasant woman, alert, in no acute distress. She is oriented and appropriate. Her left below- knee stump wound is covered with a dry dressing. She is able to extend her left knee fully, but it is painful for her. Examination of her left below-knee stump shows an open wound present medially measuring approximately 6 cm x 5 cm in size. She has a smaller wound medially measuring 1 cm x 0.7 centimeters. Her right lower leg and foot are intact. ASSESSMENT: A 52-year-old woman with known peripheral vascular disease who now has an open wound following a below-knee stump amputation. PLAN: We will proceed with excision debridement of the stump wound today. Rajendra Rebolledo M.D. Vascular Surgery SCP:[id number] /[id number] OPERATIVE NO Observed: 05/02/2018 Status: COMPLETED Source: [facility] 12:00 AM [facility] OTHER CAMPUS REPOSITORY O ID: [id number] Author: Carlin Rebolledo Service: Vascular Surgery Author Type: Physician Type: Operative Report Filed: 05/05/2018 10:30 AM Note Text: [facility] - Operative Report NEIL MENDENHALL : 1965 AGE: 52. SEX: F PATIENT TYPE: A HOSP [facility]: [facility] LOCATION: [facility] ATTENDING PHYSICIAN: LUIS DANIEL ALFREDO [facility] NUMBER: [id number] DATE OF SURGERY/PROCEDURE: 05/02/2018 INCISION/PROCEDURE START TIME: 10:40 AM INCISION CLOSE/PROCEDURE END TIME: 10:55 AM PREOPERATIVE DIAGNOSIS: Necrotic left below-knee stump wound. POSTOPERATIVE DIAGNOSIS: Necrotic left below-knee stump wound. SURGEON: Rajendra Rebolledo M.D. TRUST ADMINISTRATOR: ARTHUR Castro. SURGERY/PROCEDURE: Excision debridement of subcutaneous tissue, muscle and tendon from left below-knee stump wound. ANESTHESIA: General. INDICATIONS FOR PROCEDURE: This is a 52-year-old woman with known peripheral vascular disease. The patient has had multiple vascular interventions in her left leg, all of which have failed. Dr. Aragon several months ago performed a left below- knee amputation. This wound has not healed medially. The patient has been brought back to surgery on at least 1 occasion for debridement of this wound. The wound is very painful for her. Dr. Aragon felt that an anesthetic would be necessary for proper debridement of the wound. DESCRIPTION OF PROCEDURE: The patient was brought to the operating room and placed in the supine position, where under satisfactory general anesthesia her left below- knee stump wound was prepped and draped in usual fashion. There was an open wound medially measuring approximately 6 cm in width by 3 cm in length by 3 cm in depth. The central part of the wound was covered with necrotic fat. There was a smaller open wound laterally measuring 1 cm x 0.7 cm. Excisional debridement of the medial stump wound was carried out with curved Sales scissors, 15 blade and curettes. The wound tunneled extensively medially. There was some infected muscle and tendon which were excised. Regarding the lateral wound, this was a very clean wound which was only debrided superficially of subcutaneous tissues. Following debridement, the wound was irrigated. A wound VAC was placed medially on the left below-knee stump wound. The more lateral wound was just dressed with Xeroform gauze. The patient was returned to recovery room. Rajendra Rebolledo M.D. SCP:[id number] /[id number] NURSING PROG Observed: 04/29/2018 Status: COMPLETED Source: [place] 12:26 PM [facility] OTHER CAMPUS REPOSITORY HNO ID: [id number] Author: Shazia Hurd RN Service: Neurosurgery Author Type: Registered Nurse Type: Nursing Progress Note Filed: 04/29/2018 12:27 PM Note Text: PACC Nurse Progress Note History AND Physical: PACC Visit Date: 04-29-18 Original HANDP Date: N/A ED visit Date: N/A Outside HANDP Scanned Date: N/A Labs Within Last 6 Months: CBC: Date 04-19 BMP/CMP: Date 04-19 Imaging Within Last 12 Months: N/A Cardiac Testing: EKG in last 12 Months: Yes: Date: 02-20-18, Comment: epic BMI Percentile (PEDS): N/A Risk Assessment: N/A Anesthesia Review: N/A Narrative: N/A Pre-op Considerations: N/A Chart Check: COMPLETED Shazia Hurd RN April 29, 2018 12:26 PM HISTORY PHYSICAL Observed: 04/29/2018 Status: COMPLETED Source: [place] 9:34 AM [facility] [place] REPOSITORY HNO ID: [id number] Author: Alana Monahan (Pa) Service: (none) Author Type: Physician Swimmer Type: HANDP Filed: 04/29/2018 1:19 PM Note Text: HISTORY AND PHYSICAL EXAMINATION SERVICE DATE: 04/29/2018 SERVICE TIME: 9:34 AM PRIMARY CARE PHYSICIAN: Dheeraj Trujillo MD REASON FOR VISIT: Neil Mendenhall is a 52 year old female who is scheduled for Debridement muscle/fascia, left bk stump wound debridement at the request of Dr. Flo Aragon for consultation. My final recommendation will be communicated back to the requesting physician by way of shared medical record or letter. The patient has the following: ACTIVE PROBLEM LIST Bipolar affective Carotid Artery Disease (Hcc) Pvd (Peripheral Vascular Disease) ([facility]) Postoperative Pain Arterial Occlusion, Lower Extremity (Hcc) Bipolar disorder (HCC) Hyperlipidemia Neuropathic Pain Aissatou (Obstructive Sleep Apnea) Smoker Thrombus S/P Bka (Below Knee Amputation) Unilateral, Left ([facility]) Htn (Hypertension) Lupus Anticoagulant With Hypercoagulable State ([facility]) Status Post Surgery Left Leg Pain Subjective CHIEF COMPLAINT: Debridement of stump HPI: 52 year old female with PVD, s/p left BKA performed on 02/18/18 secondary to ischemic rest pain and digit 3 tissue loss, hypercoagulable state w lupus, multiple failed bypass and stents with nonreconstructable vascular disease of the left?lower extremity per review of surgeon's office visit notes. 04/26/18 post op follow up with Dr. Aragon's notes: Had a fall w wound breakdown requiring debridement last weekComes in today w painful dressing changes w wound vac and additional fibrnous debris from wound requiring debridement. Today, she reports constant pain 02/25 taking only Tylenol without much relief. + sleep disturbances, pain independent of position. She states that pain throbs like a heart beat She is scheduled for 05/02/18 wound debridement with surgeon at [facility]. PAST MEDICAL HISTORY Diagnosis Date - Below knee amputation status, left ([facility]) - Bipolar affective disorder ([facility]) - Carotid artery disease ([facility]) - HTN (hypertension) - Lupus - AISSATOU (obstructive sleep apnea) non-compliant with CPAP use - PVD (peripheral vascular disease) ([facility]) - Tobacco abuse PAST SURGICAL HISTORY Procedure Laterality Date - ANGIO TRANSLUM BALL ANGIO ANGELO 2008 [id number] - BYPASS GRAFT OTHR,FEM-POP - COLONOSCOPY - PAST SURGICAL HISTORY OF Left 02/18/2018 below the knee amputation - PAST SURGICAL HISTORY OF Left 04/18/2018 DEBRIDEMENT MUSCLE/FASCIA FIRST 20 SQ CM OR LESS LOWER EXTREMITY - PAST SURGICAL HISTORY OF appy FAMILY HISTORY Problem Relation Age of Onset - Diabetes Mother - No Known Problems Father - Cancer Sister blood SOCIAL HISTORY: Social History Marital status: Single Spouse name: Years of education: Number of children: Social History Main Topics Smoking status: Former Smoker Packs/day: 0.50 Years: 25.00 Types: Cigarettes Quit date: 09/01/2009 Smokeless tobacco: Never Used Comment: currently using electronic cigarette Alcohol use: No Drug use: No Prior to Admission medications as of 04/29/18 0926 Medication Sig Last Dose Taking ergocalciferol, vitamin D2, (VITAMIN D) 50,000 unit capsule Take 50,000 Units by mouth once each week. Yes ciprofloxacin HCl (CIPRO) 500 mg tablet Take 1 tablet by mouth twice daily for 7 days. Yes acetaminophen (TYLENOL) 325 mg tablet Take 2 tablets by mouth every 6 hours. Yes apixaban (ELIQUIS) 5 mg tab(s) Take 1 tablet by mouth twice daily. starting 02/28/2018 at 9 pm Yes pravastatin (PRAVACHOL) 80 mg tablet Take 80 mg by mouth once daily. Yes NIFEdipine ER (PROCARDIA XL) 30 mg 24 hr tablet Take 1 tablet by mouth once daily. Yes aspirin 81 mg chewable tablet Take 1 tablet by mouth once daily. Yes lamoTRIgine (LAMICTAL) 200 mg tablet Take 200 mg by mouth once daily. Yes aripiprazole(ABILIFY 20 MG TAB) Take one(1) tablet daily. Yes senna-docusate (SENNA-S) 8.6-50 mg per tablet Take 1 tablet by mouth twice daily. polyethylene glycol 3350 (MIRALAX, GLYCOLAX) 17 gram packet Take 1 Packet by mouth once daily as needed (constipation). docusate sodium (COLACE) 100 mg capsule Take 1 capsule by mouth twice daily. Cholecalciferol, Vitamin D3, 5,000 unit cap Take 5,000 Units by mouth once daily. No medication comments found. ALLERGIES Allergen Reactions - Horizant [Gabapenti* Mental Status Change - Wellbutrin [Bupropi* Other: See Comments Took med on Wednesday Woke up 3 days later in hospital REVIEW OF SYSTEMS: PAIN ASSESSMENT: Pain Pain Score: 8/10 Pain Location: (left leg pain) Description: Pulsating Duration Units: Months Frequency: Continuous Intervention: Medication (tylenol) General: No weight loss, malaise or fevers. Neuro: Postive for Peripheral neuropathy, Negative for TIA's Headaches Seizures Stroke-residual deficit Stroke-No residual deficit Respiratory: No history of current cough or dyspnea, or pneumonia in the past 6 weeks. No history of respiratory/pulmonary symptoms or problems., h/o tobacco abuse uses E-cigarettes, +AISSATOU non-compliance with CPAP Cardiovascular: +HTN, HLD, Positive for: PVD; History of amputation left BKA 02/2018, Negative for Recent HI, Angina, Arrhythmia, CHF, chest pain, valvular heart disease GI: No history of GI symptoms or problems. No history of esophageal varices, recent ascites, or ETOH greater than 2 drinks per day. : No history of dysuria, frequency or incontinence,, stones or chronic kidney disease MRI TECHNOLOGIST: Negative for abnormal vaginal bleeding, abnormal vaginal discharge. : N/A, Patient's last menstrual period was 08/07/2011. Endocrine: No history of diabetes. Has not taken steroids within the past 30 days. No history of endocrinological symptoms or problems. Hematology: Chronic anti-coagulation / platelet meds (Eliquis and ASA 81 mg) + Lupus with hypercoagulable state Oncology: No history of CA metastasis, chemo within 30 days, or radiotherapy within 90 days. Has not lost 10% of body wt in 6 months. No history of oncological symptoms or problems. Psych: Bipolar disorder Musculoskeletal: See HPI Skin: See HPI Objective PHYSICAL EXAM: VITALS: BP 135/79 Pulse 74 Temp (Src) 97.6 (Temporal Artery) Ht 5' 6 (1.68m) Wt 175 lb (79.4kg) SpO2 99% LMP 08/07/2011 BMI 28.26 kg/(m2). General: Alert and oriented Skin: Normal color, no rash, no lesions. Exam of left Below the knee stump deferred to surgeon HEENT: EOM, pupils equal, round and reactive., No carotid bruits Cardiovascular: Normal S1 AND S2, no rubs, murmurs or gallops. No JVD. Pulse regular. Lungs: Normal breath sounds, no wheezes or crackles. Abdomen: Soft, non-tender, no rigidity., No masses or organomegaly., Positive bowel sounds Extremities: left BKA Neurological: Normal cognition pt presents in wheelchair Pulses: Carotid and radial pulses normal +2. Diagnostic tests reviewed for today's visit: Lab Value Units Date High Low HB 10.8 g/dL 04/19/2018 15.5 11.5 HCT 34.0 % 04/19/2018 46.0 36.0 WBC 5.09 k/uL 04/19/2018 11.00 3.70 PLT 438 k/uL 04/19/2018 400 150 NA 144 mmol/L 04/19/2018 148 132 K 3.4 mmol/L 04/19/2018 5.0 3.5 GLUC 109 mg/dL 04/19/2018 100 65 BUN 12 mg/dL 04/19/2018 25 8 CREAT 0.74 mg/dL 04/19/2018 1.40 0.70 PTSEC 9.9 sec 02/19/2018 13.0 9.7 INR 1.0 no uni* 02/19/2018 1.3 0.9 APTT 26.9 sec 02/22/2018 32.4 23.0 ALT 48 U/L 04/19/2018 45 0 AST 46 U/L 04/19/2018 40 7 TBILI 0.3 mg/dL 04/19/2018 1.3 0.2 Lab Value Units Date High Low ABORHD A NEGA* no uni* 02/18/2018 ABSCREEN NEG no uni* 02/18/2018 Procedure Date : Feb 20 2018 16:44:21 Edit Date : Feb 22 2018 20:11:28 ? Diagnosis:SINUS RHYTHM ABNRM R PROG, CONSIDER ASMI OR LEAD PLACEMENT Abnormal ECG Confirmed by DANIELE Sloan [facility] ([id number]) on 02/22/2018 8:11:27 PM No new labs or tests Assessment ASSESSMENT Patient has the following medical conditions Pvd (peripheral vascular disease) (hcc) Hypertension, unspecified type rx tx Bipolar disorder (hcc) rx tx Mixed hyperlipidemia Lupus anticoagulant with hypercoagulable state (hcc) on Eliquis per Dr. Aragon's pre op orders pt to stop 2 days prior to surgery Aissatou (obstructive sleep apnea) does not use CPAP Neuropathic pain Smoker S/p bka (below knee amputation) unilateral, left (hcc) METS: Take care of self; that is eating, dressing, bathing, using the toilet (2.75 METs) Patient denies any chest pain or undue shortness of breath with the above physical activity. pt is using walker in her home s/p left BKA 02/2018 ASA Class: 3 ANESTHESIA FINDINGS: Intubation History: No history of difficult intubation Significant Anesthesia Considerations: None Airway Exam: General: Normal appearance Mallampati Score is CLASS I ULBT: Class III - Lower incisors cannot bite the upper lip Neck: Normal appearance and function, Distance from hyoid to mentum during neck extension is at least 3 finger breaths Mouth: Normal tongue size and Mouth opening greater than 2 finger breaths Dentition: Upper denture and Lower denture Airway History: No abnormal airway history STOP BANG Score: AISSATOU does not use CPAP/BiPAP PLAN This patient is optimally prepared for surgery. CONSULTS: Patient does not require consults for optimization at this time. The Following Tests/Procedures Have Been Initiated: Labs not indicated per PACC protocol, EKG not indicated per PACC protocol Planned Anesthetic: General Instructions Given to Patient: Patient given verbal and written preop instructions and voices comprehension and compliance. SIGNATURE: Alana Monahan PA-C PATIENT NAME: Neil Mendenhall DATE: April 29, 2018 TIME: 9:34 AM PAGER/CONTACT #: [email or web address] Observed: 04/26/2018 Status: COMPLETED Source: [place] 2:22 PM [facility] [place] REPOSITORY HNO ID: [id number] Author: Flo Aragon Service: (none) Author Type: Physician Type: Progress Notes Filed: 04/26/2018 2:30 PM Note Text: [facility] ESTABLISHED PATIENT NOTE April 26, 2018 History obtained from: record in [facility], patient, friend ? 52 year old female with ? LLE BKA Had a fall w wound breakdown requiring debridement last week Comes in today w painful dressing changes w wound vac and additional fibrnous debris from wound requiring debridement Meds include: Current Outpatient Prescriptions: ciprofloxacin HCl (CIPRO) 500 mg tablet Take 1 tablet by mouth twice daily for 7 days. oxyCODONE IR (ROXICODONE) 5 mg immediate release tablet Take 1 tablet by mouth every 6 hours as needed for Pain for up to 7 days. acetaminophen (TYLENOL) 325 mg tablet Take 2 tablets by mouth every 6 hours. senna-docusate (SENNA-S) 8.6-50 mg per tablet Take 1 tablet by mouth twice daily. polyethylene glycol 3350 (MIRALAX, GLYCOLAX) 17 gram packet Take 1 Packet by mouth once daily as needed (constipation). apixaban (ELIQUIS) 5 mg tab(s) Take 1 tablet by mouth twice daily. starting 02/28/2018 at 9 pm pravastatin (PRAVACHOL) 80 mg tablet Take 80 mg by mouth once daily. docusate sodium (COLACE) 100 mg capsule Take 1 capsule by mouth twice daily. NIFEdipine ER (PROCARDIA XL) 30 mg 24 hr tablet Take 1 tablet by mouth once daily. Cholecalciferol, Vitamin D3, 5,000 unit cap Take 5,000 Units by mouth once daily. aspirin 81 mg chewable tablet Take 1 tablet by mouth once daily. lamoTRIgine (LAMICTAL) 200 mg tablet Take 200 mg by mouth once daily. aripiprazole(ABILIFY 20 MG TAB) Take one(1) tablet daily. No current facility-administered medications for this visit. Tob: Tobacco Use: .5 packs/day, for 25 years. Quit 09/01/2009. Types: Cigarettes (currently using electronic cigarette) Focused Physical Exam: BP 115/63 Temp (Src) 98 (Oral) Ht 5' 6 (1.68m) LMP 08/07/2011 Nad, aANDox3 rrr Non-labored Soft, ntnd LLE bka w wound brekdown on medial and lateral aspect of bk stump. Lateral aspect healing apropriately, medially fibrinous debris on mid-aspect of stump. No foul-smelling discharge. No blanching erythema. Edema within leg, but no gross signs of infection, just ischemia Labs: Creatinine Date Value Ref Range Status 04/19/2018 0.74 0.70 - 1.40 mg/dL Final 02/21/2018 0.70 0.70 - 1.40 mg/dL Final 02/20/2018 0.69 (L) 0.70 - 1.40 mg/dL Final 02/19/2018 0.71 0.70 - 1.40 mg/dL Final Cholesterol, Total Date Value Ref Range Status 03/27/2010 229 (H) 100 - 199 mg/dL Final HDL Cholesterol Date Value Ref Range Status 03/27/2010 53 (L) >55 mg/dL Final LDL Cholesterol Date Value Ref Range Status 03/27/2010 153 (H) 60 - 129 mg/dL Final Triglyceride Date Value Ref Range Status 03/27/2010 117 30 - 149 mg/dL Final Glucose Date Value Ref Range Status 04/19/2018 109 (H) 65 - 100 mg/dL Final No results found for: HBA1C Impression and plan: 52F lupus w pad culminating in bka w wound breakdown after fall Surgery recommended: excisionl debridement of bk stump. Discussed w Dr Rebolledo for prolonged wound care needs Complete course of cipro - abx changed based on OR sensitivities I spent more than 50% of the visit counseling the patient on the plan and treatment options. Face to Face time was 15 minutes. Flo Aragon MD Staff, Vascular Surgery April 26, 2018 2:22 PM CNOV Observed: 04/26/2018 Status: COMPLETED Source: [place] 1:15 PM [facility] REPOSITORY Office Visit ([facility]) NEIL MENDENHALL ([id number]) 1965 F Date Time Provider Department 04/26/18 1:15 PM FLO ARAGON [facility] During your visit today, we recorded the following information about you: Temperature Blood pressure Height 98 degrees 115/63 1.676 m Flo Aragon MD 04/26/2018 2:30 PM Signed [facility] ESTABLISHED PATIENT NOTE April 26, 2018 History obtained from: record in [place], patient, friend ? 52 year old female with ? NELSON FORBES Had a fall w wound breakdown requiring debridement last week Comes in today w painful dressing changes w wound vac and additional fibrnous debris from wound requiring debridement Meds include: Current Outpatient Prescriptions: ciprofloxacin HCl (CIPRO) 500 mg tablet Take 1 tablet by mouth twice daily for 7 days. oxyCODONE IR (ROXICODONE) 5 mg immediate release tablet Take 1 tablet by mouth every 6 hours as needed for Pain for up to 7 days. acetaminophen (TYLENOL) 325 mg tablet Take 2 tablets by mouth every 6 hours. senna-docusate (SENNA-S) 8.6-50 mg per tablet Take 1 tablet by mouth twice daily. polyethylene glycol 3350 (MIRALAX, GLYCOLAX) 17 gram packet Take 1 Packet by mouth once daily as needed (constipation). apixaban (ELIQUIS) 5 mg tab(s) Take 1 tablet by mouth twice daily. starting 02/28/2018 at 9 pm pravastatin (PRAVACHOL) 80 mg tablet Take 80 mg by mouth once daily. docusate sodium (COLACE) 100 mg capsule Take 1 capsule by mouth twice daily. NIFEdipine ER (PROCARDIA XL) 30 mg 24 hr tablet Take 1 tablet by mouth once daily. Cholecalciferol, Vitamin D3, 5,000 unit cap Take 5,000 Units by mouth once daily. aspirin 81 mg chewable tablet Take 1 tablet by mouth once daily. lamoTRIgine (LAMICTAL) 200 mg tablet Take 200 mg by mouth once daily. aripiprazole(ABILIFY 20 MG TAB) Take one(1) tablet daily. No current facility-administered medications for this visit. Tob: Tobacco Use: .5 packs/day, for 25 years. Quit 09/01/2009. Types: Cigarettes (currently using electronic cigarette) Focused Physical Exam: BP 115/63 Temp (Src) 98 (Oral) Ht 5' 6 (1.68m) LMP 08/07/2011 Nad, aANDox3 rrr Non-labored Soft, ntnd LLE bka w wound brekdown on medial and lateral aspect of bk stump. Lateral aspect healing apropriately, medially fibrinous debris on mid-aspect of stump. No foul-smelling discharge. No blanching erythema. Edema within leg, but no gross signs of infection, just ischemia Labs: Creatinine Date Value Ref Range Status 04/19/2018 0.74 0.70 - 1.40 mg/dL Final 02/21/2018 0.70 0.70 - 1.40 mg/dL Final 02/20/2018 0.69 (L) 0.70 - 1.40 mg/dL Final 02/19/2018 0.71 0.70 - 1.40 mg/dL Final Cholesterol, Total Date Value Ref Range Status 03/27/2010 229 (H) 100 - 199 mg/dL Final HDL Cholesterol Date Value Ref Range Status 03/27/2010 53 (L) >55 mg/dL Final LDL Cholesterol Date Value Ref Range Status 03/27/2010 153 (H) 60 - 129 mg/dL Final Triglyceride Date Value Ref Range Status 03/27/2010 117 30 - 149 mg/dL Final Glucose Date Value Ref Range Status 04/19/2018 109 (H) 65 - 100 mg/dL Final No results found for: HBA1C Impression and plan: 52F lupus w pad culminating in bka w wound breakdown after fall Surgery recommended: excisionl debridement of bk stump. Discussed w Dr Rebolledo for prolonged wound care needs Complete course of cipro - abx changed based on OR sensitivities I spent more than 50% of the visit counseling the patient on the plan and treatment options. Face to Face time was 15 minutes. Flo Aragon MD Staff, Vascular Surgery April 26, 2018 2:22 PM Referring Provider: FLO ARAGON [[id number]] Allergies As of Date: 04/26/2018 Noted Allergy Reaction HORIZANT (GABAPENTIN ENACARBIL) 04/19/2014 1 - Mental Status Change WELLBUTRIN (BUPROPION HCL) 11/13/2011 14 - Other: See Comments Comments: Took med on Wednesday Woke up 3 days later in hospital Date Reviewed: 04/26/2018 Reviewed by: Flo Aragon - Fully Assessed Reason for Visit: Follow Up [171] Primary Visit Diagnosis:Hypercoagulable state (HCC) [D68.59] Other Visit Diagnoses:PAD (peripheral artery disease) [I73.9] Arterial occlusion, lower extremity (HCC) [I70.209] Hyperlipidemia, unspecified hyperlipidemia type [E78.5] Wound abscess [T81.49XA] Prescriptions as of 04/26/2018 Sig: CIPROFLOXACIN 500 MG TABLET Take 1 tablet by mouth twice * OXYCODONE 5 MG TABLET Take 1 tablet by mouth every * ACETAMINOPHEN 325 MG TABLET Take 2 tablets by mouth every* SENNOSIDES 8.6 MG-DOCUSATE SO* Take 1 tablet by mouth twice * POLYETHYLENE GLYCOL 3350 17 G* Take 1 Packet by mouth once d* APIXABAN 5 MG TABLET Take 1 tablet by mouth twice * PRAVASTATIN 80 MG TABLET Take 80 mg by mouth once shahram* DOCUSATE SODIUM 100 MG CAPSULE Take 1 capsule by mouth twice* NIFEDIPINE ER 30 MG TABLET,EX* Take 1 tablet by mouth once d* CHOLECALCIFEROL (VITAMIN D3) * Take 5,000 Units by mouth onc* ASPIRIN 81 MG CHEWABLE TABLET Take 1 tablet by mouth once d* LAMOTRIGINE 200 MG TABLET Take 200 mg by mouth once chaitanya* * ABILIFY 20 MG TABLET Take one(1) tablet daily. Problem List As Of Date 04/26/2018 Noted Resolved Bipolar affective [F31.9] INVALID FOR* Carotid artery disease [I77.9] INVALID FOR* PVD (peripheral vascular disease) (HCC) [I73.9] INVALID FOR* Priority: A More... Postoperative pain [G89.18] INVALID FOR* Priority: D More... Dehydration [E86.0] INVALID FOR*04/22/2014 Priority: F More... Arterial occlusion, lower extremity (HCC) [I70.*INVALID FOR* Priority: A More... Bipolar disorder (HCC) [F31.9] INVALID FOR* Priority: C More... Hyperlipidemia [E78.5] INVALID FOR* Priority: C More... Neuropathic pain [M79.2] INVALID FOR* Priority: D More... AISSATOU (obstructive sleep apnea) [G47.33] INVALID FOR* Priority: D More... Smoker [F17.200] INVALID FOR* Priority: E More... Thrombus [I82.90] INVALID FOR* Critical lower limb ischemia [I99.8] INVALID FOR*11/15/2017 Priority: A S/P BKA (below knee amputation) unilateral, lef*INVALID FOR* HTN (hypertension) [I10] INVALID FOR* Priority: B More... Lupus anticoagulant with hypercoagulable state *INVALID FOR* Priority: D More... Amputation stump infection (HCC) [T87.40] INVALID FOR*04/19/2018 Priority: A More... Status post surgery [Z98.890] INVALID FOR* Hypokalemia [E87.6] INVALID FOR*04/19/2018 More... Encounter Status:Closed by FLO ARAGON MD on 04/26/18 HOSP Observed: 04/26/2018 Status: COMPLETED Source: [place] 12:00 AM CLINIC OTHER CAMPUS REPOSITORY Patient:Neil Mendenhall MRN: <[id number]> Height:5' 6(1.676 m) Weight:175 lb (79.379 kg) Outpatient Medications as of 05/02/18: ergocalciferol, vitamin D2, (VITAMIN D) 50,000 unit capsule acetaminophen (TYLENOL) 325 mg tablet senna-docusate (SENNA-S) 8.6-50 mg per tablet polyethylene glycol 3350 (MIRALAX, GLYCOLAX) 17 gram packet apixaban (ELIQUIS) 5 mg tab(s) pravastatin (PRAVACHOL) 80 mg tablet docusate sodium (COLACE) 100 mg capsule NIFEdipine ER (PROCARDIA XL) 30 mg 24 hr tablet Cholecalciferol, Vitamin D3, 5,000 unit cap aspirin 81 mg chewable tablet lamoTRIgine (LAMICTAL) 200 mg tablet aripiprazole(ABILIFY 20 MG TAB) Admission/Clinic Administered Medications as of 05/02/18: Patient has no admission medications. Problem List: Bipolar affective [F31.9] Carotid artery disease (HCC) [I77.9] PVD (peripheral vascular disease) ([facility]) [I73.9] Postoperative pain [G89.18] Arterial occlusion, lower extremity (HCC) [I70.209] Bipolar disorder (HCC) [F31.9] Hyperlipidemia [E78.5] Neuropathic pain [M79.2] AISSATOU (obstructive sleep apnea) [G47.33] Smoker [F17.200] Thrombus [I82.90] S/P BKA (below knee amputation) unilateral, left ([facility]) [Z89.512] HTN (hypertension) [I10] Lupus anticoagulant with hypercoagulable state ([facility]) [D68.62] Status post surgery [Z98.890] Left leg pain [M79.605] Allergies: Horizant [Gabapentin Enacarbil] Wellbutrin [Bupropion Hcl] Date Verified: 05/02/18 Lab Values Lab Value Units Date High Low POTA* 3.4 mmol/L 04/19/2018 5.0 3.5 CHRISTEL* 34.0 % 04/19/2018 46.0 36.0 Progress Notes ([facility] [facility]): Laura Monaco PSR 04/27/2018 3:16 PM Signed Cyndy from [facility] states that patient is no longer needs the wound vac. Cyndy needs an order to know what to do with the dressing. Call her @ [phone] - ok to leave a message. Shanita Garcia RN 04/27/2018 4:[address] Aragon, the order is wet to dry dressing changes to be done daily. Cyndy with home care is aware. Shanita Garcia RN Progress Notes ([facility]): Flo Aragon MD 04/26/2018 2:30 PM Signed [facility] ESTABLISHED PATIENT NOTE April 26, 2018 History obtained from: record in Epic, patient, friend ? 52 year old female with ? LLE BKA Had a fall w wound breakdown requiring debridement last week Comes in today w painful dressing changes w wound vac and additional fibrnous debris from wound requiring debridement Meds include: Current Outpatient Prescriptions: ciprofloxacin HCl (CIPRO) 500 mg tablet Take 1 tablet by mouth twice daily for 7 days. oxyCODONE IR (ROXICODONE) 5 mg immediate release tablet Take 1 tablet by mouth every 6 hours as needed for Pain for up to 7 days. acetaminophen (TYLENOL) 325 mg tablet Take 2 tablets by mouth every 6 hours. senna-docusate (SENNA-S) 8.6-50 mg per tablet Take 1 tablet by mouth twice daily. polyethylene glycol 3350 (MIRALAX, GLYCOLAX) 17 gram packet Take 1 Packet by mouth once daily as needed (constipation). apixaban (ELIQUIS) 5 mg tab(s) Take 1 tablet by mouth twice daily. starting 02/28/2018 at 9 pm pravastatin (PRAVACHOL) 80 mg tablet Take 80 mg by mouth once daily. docusate sodium (COLACE) 100 mg capsule Take 1 capsule by mouth twice daily. NIFEdipine ER (PROCARDIA XL) 30 mg 24 hr tablet Take 1 tablet by mouth once daily. Cholecalciferol, Vitamin D3, 5,000 unit cap Take 5,000 Units by mouth once daily. aspirin 81 mg chewable tablet Take 1 tablet by mouth once daily. lamoTRIgine (LAMICTAL) 200 mg tablet Take 200 mg by mouth once daily. aripiprazole(ABILIFY 20 MG TAB) Take one(1) tablet daily. No current facility-administered medications for this visit. Tob: Tobacco Use: .5 packs/day, for 25 years. Quit 09/01/2009. Types: Cigarettes (currently using electronic cigarette) Focused Physical Exam: BP 115/63 Temp (Src) 98 (Oral) Ht 5' 6 (1.68m) LMP 08/07/2011 Nad, aANDox3 rrr Non-labored Soft, ntnd LLE bka w wound brekdown on medial and lateral aspect of bk stump. Lateral aspect healing apropriately, medially fibrinous debris on mid-aspect of stump. No foul-smelling discharge. No blanching erythema. Edema within leg, but no gross signs of infection, just ischemia Labs: Creatinine Date Value Ref Range Status 04/19/2018 0.74 0.70 - 1.40 mg/dL Final 02/21/2018 0.70 0.70 - 1.40 mg/dL Final 02/20/2018 0.69 (L) 0.70 - 1.40 mg/dL Final 02/19/2018 0.71 0.70 - 1.40 mg/dL Final Cholesterol, Total Date Value Ref Range Status 03/27/2010 229 (H) 100 - 199 mg/dL Final HDL Cholesterol Date Value Ref Range Status 03/27/2010 53 (L) >55 mg/dL Final LDL Cholesterol Date Value Ref Range Status 03/27/2010 153 (H) 60 - 129 mg/dL Final Triglyceride Date Value Ref Range Status 03/27/2010 117 30 - 149 mg/dL Final Glucose Date Value Ref Range Status 04/19/2018 109 (H) 65 - 100 mg/dL Final No results found for: HBA1C Impression and plan: 52F lupus w pad culminating in bka w wound breakdown after fall Surgery recommended: excisionl debridement of bk stump. Discussed w Dr Rebolledo for prolonged wound care needs Complete course of cipro - abx changed based on OR sensitivities I spent more than 50% of the visit counseling the patient on the plan and treatment options. Face to Face time was 15 minutes. Flo Aragon MD Staff, Vascular Surgery April 26, 2018 2:22 PM MARIO Observed: 04/22/2018 Status: COMPLETED Source: [place] 12:00 AM [facility] OTHER CAMPUS REPOSITORY Telephone (FVPRAD) NEIL MENDENHALL ([id number]) 1965 F Date Time Provider Department 04/22/18 VIVIAN LEA (PA) FVVITO During your visit today, we recorded the following information about you: Vivian Lea PA-C 04/22/2018 5:16 PM Signed Stump cx grew Pseudomonas and Enterobacter. Instructed patient to discontinue keflex Rx. New Rx: Cipro 500 mg BID for one week sent to patient's local pharmacy. 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 Patient has follow-up with Dr. Aragon next Wednesday. Vivian Lea PA-C April 22, 2018 5:14 PM Allergies As of Date: 04/22/2018 Noted Allergy Reaction HORIZANT (GABAPENTIN ENACARBIL) 04/19/2014 1 - Mental Status Change WELLBUTRIN (BUPROPION HCL) 11/13/2011 14 - Other: See Comments Comments: Took med on Wednesday Woke up 3 days later in hospital Date Reviewed: 04/19/2018 Reviewed by: Darrell JeffriesRn) SARAH Serna - Fully Assessed Reason for Visit: Results [95] Order(s):ciprofloxacin HCl (CIPRO) 500 mg tabletTake 1 tablet by mouth twice daily for 7 days.Disp: 14 tabletRfl: 0 Prescriptions as of 04/22/2018 Sig: CIPROFLOXACIN 500 MG TABLET Take 1 tablet by mouth twice * OXYCODONE 5 MG TABLET Take 1 tablet by mouth every * CEPHALEXIN 500 MG CAPSULE Take 1 capsule by mouth three* ACETAMINOPHEN 325 MG TABLET Take 2 tablets by mouth every* SENNOSIDES 8.6 MG-DOCUSATE SO* Take 1 tablet by mouth twice * POLYETHYLENE GLYCOL 3350 17 G* Take 1 Packet by mouth once d* APIXABAN 5 MG TABLET Take 1 tablet by mouth twice * PRAVASTATIN 80 MG TABLET Take 80 mg by mouth once shahram* DOCUSATE SODIUM 100 MG CAPSULE Take 1 capsule by mouth twice* NIFEDIPINE ER 30 MG TABLET,EX* Take 1 tablet by mouth once d* CHOLECALCIFEROL (VITAMIN D3) * Take 5,000 Units by mouth onc* ASPIRIN 81 MG CHEWABLE TABLET Take 1 tablet by mouth once d* LAMOTRIGINE 200 MG TABLET Take 200 mg by mouth once chaitanya* * ABILIFY 20 MG TABLET Take one(1) tablet daily. Problem List As Of Date 04/22/2018 Noted Resolved Bipolar affective [F31.9] INVALID FOR* Carotid artery disease [I77.9] INVALID FOR* PVD (peripheral vascular disease) (HCC) [I73.9] INVALID FOR* Priority: A More... Postoperative pain [G89.18] INVALID FOR* Priority: D More... Dehydration [E86.0] INVALID FOR*04/22/2014 Priority: F More... Arterial occlusion, lower extremity (HCC) [I70.*INVALID FOR* Priority: A More... Bipolar disorder (HCC) [F31.9] INVALID FOR* Priority: C More... Hyperlipidemia [E78.5] INVALID FOR* Priority: C More... Neuropathic pain [M79.2] INVALID FOR* Priority: D More... AISSATOU (obstructive sleep apnea) [G47.33] INVALID FOR* Priority: D More... Smoker [F17.200] INVALID FOR* Priority: E More... Thrombus [I82.90] INVALID FOR* Critical lower limb ischemia [I99.8] INVALID FOR*11/15/2017 Priority: A S/P BKA (below knee amputation) unilateral, lef*INVALID FOR* HTN (hypertension) [I10] INVALID FOR* Priority: B More... Lupus anticoagulant with hypercoagulable state *INVALID FOR* Priority: D More... Amputation stump infection (HCC) [T87.40] INVALID FOR*04/19/2018 Priority: A More... Status post surgery [Z98.890] INVALID FOR* Hypokalemia [E87.6] INVALID FOR*04/19/2018 More... Prescriptions ordered this encounter Disp Refills Start End CIPROFLOXACIN 500 MG TABLET 14 t* 0 04/22/2018 04/29/2018 Route: ORAL Sig: Take 1 tablet by mouth twice daily for 7 days. Medications Discontinued During This Encounter ciprofloxacin HCl (CIPRO) 500 mg tab* 14 t* 0 04/22/2018 04/22/2018 Route: ORAL Sig: Take 1 tablet by mouth twice daily for 7 days. Disc: Reason for discontinue is not on file. Encounter Status:Closed by VIVIAN LEA PA-C on 04/22/18 NURSING PROG Observed: 04/19/2018 Status: COMPLETED Source: [place] 8:34 PM CLINIC OTHER CAMPUS REPOSITORY HNO ID: [id number] Author: Gena Mari) SARAH Ingram Service: (none) Author Type: Registered Nurse Type: Nursing Progress Note Filed: 04/19/2018 8:51 PM Note Text: Nursing Progress Note Patient Name: Neil Mendenhall [facility] [place] [address] Daily Note: 2034 Patient VSS, wound vac placed w/another nurse, patient tolerated well. Rest of the supplies will be taken home for dressing changes. Sister in the room, will transport patient home soon. IV removed. Education resolved and met. This note was completed by: Gena Ingram RN CNDS Observed: 04/19/2018 Status: COMPLETED Source: [place] 3:57 PM [facility] REPOSITORY HNO ID: [id number] Author: Vivian Lea (Pa) Service: Vascular Surgery Author Type: Physician Swimmer Type: Discharge Summaries Filed: 04/20/2018 7:22 AM Note Text: Attestation signed by Flo Aragon at 04/20/2018 9:19 AM [facility] STAFF PHYSICIAN NOTE OF PERSONAL INVOLVEMENT IN CARE I have reviewed the discharge summary obtained and documented by the physician resident programs assistant and I personally participated in the mcaadms components. I have discussed the case and management of the patient's care. The following comments revise or confirm relevant mcadams components of their note. Agree wit gianni Aragon MD Staff, Vascular Surgery April 20, 2018 9:19 AM Department of Vascular Surgery Discharge Summary PATIENT NAME: Neil Mendenhall ADMISSION DATE: 04/18/2018 DISCHARGE DATE: 04/19/2018 Attending Physician: Flo Aragon Code Status: Not on file Primary Service: Highest Readmission Risk Score: 16 The 30 day readmissions risk score is derived from an internally validated risk model which evaluates patient level characteristics, utilization history, medication orders and lab results up until the day of discharge. Patients with a score of 40 or above are considered highest risk for readmission. Specific patient level drivers will be listed at the bottom of the summary. Attending Physician: Flo Aragon Primary Service: Vascular Surgery Admission Diagnosis: Wound breakdown left lower extremity below knee stump Discharge Diagnosis: Wound breakdown left lower extremity below knee stump Reason for Hospitalization: 52 year old female who presents with hypercoagulable state s/p LLE BKA, had a fall with wound breakdown, presents to the OR for debridement of wound. Operations during Hospitalization: 04/18/2018 Excisional debridement left lower extremity sq tissue, muscle and fat Hospital Course * How was the Reason for Hospitalization Addressed: Operation listed above. * What were the Active Issues: Stump cultures in process, f/u final cx, complete 10 day course po keflex. Vac dressing placed to LLE BK stump wounds: 7 cm L x 4 cm W x 2 cm D (medial wound), 3 cm L x 1 cm W x 0.5 cm D (central wound). F/U Dr. Aragon in one week * Hospital Course Complicated by: NA * Extended Hospital Stay Due to: NA * Specific Medication Changes: none * ID/Microbiology: Stump cx -no growth to date. Complete 10 day course po keflex at time of discharge. * Pain: Tylenol/ Oxycodone prn * Surgical Incisions/Wounds: Lower extremity - LLE BK stump wounds: 7 cm L x 4 cm W x 2 cm D (medial wound), 3 cm L x 1 cm W x 0.5 cm D (central wound) -pink and clean * Pulses: 2+ R PT pulse * PT/OT: NA * Patient Condition at Discharge: Stable * Disposition: Home with Home Health Care Problem List: Patient Active Hospital Problem List: Amputation stump infection ([facility]) (04/13/2018) PVD (peripheral vascular disease) ([facility]) (09/23/2011) HTN (hypertension) (02/21/2018) Bipolar disorder ([facility]) (04/21/2014) Hyperlipidemia (04/21/2014) Lupus anticoagulant with hypercoagulable state ([facility]) (02/21/2018) S/P BKA (below knee amputation) unilateral, left ([facility]) (02/18/2018) Status post surgery (04/18/2018) Hypokalemia (04/19/2018) Consults: None Procedures Performed and Major Radiology: none Information Provided to the Patient: Patient given copy of After Visit Summary which included activity instructions, diet instructions, wound care instructions, medication instructions and follow up appointment Diet: Heart Health Diet: 2 gm sodium, <200 mg cholesterol, low saturated fat Activity: No weight bearing left stump. Weight bearing as tolerated right leg. No driving. ALLERGIES Allergen Reactions - Horizant [Gabapenti* Mental Status Change - Wellbutrin [Bupropi* Other: See Comments Took med on Wednesday Woke up 3 days later in hospital Discharge Medications: Current Discharge Medication List START taking these medications oxyCODONE IR (ROXICODONE) 5 mg Take 5 mg by mouth every 6 hours as needed for Pain. Earliest Fill Date: 04/19/18 Qty: 28 tablet Refills: 0 Associated Diagnoses:S/P vascular surgery CONTINUE these medications which have NOT CHANGED cephALEXin (KEFLEX) 500 mg Take 500 mg by mouth three times daily. Qty: 30 capsule Refills: 0 acetaminophen (TYLENOL) 650 mg Take 650 mg by mouth every 6 hours. apixaban (ELIQUIS) 5 mg Take 5 mg by mouth twice daily. starting 02/28/2018 at 9 pm pravastatin (PRAVACHOL) 80 mg Take 80 mg by mouth once daily. NIFEdipine ER (PROCARDIA XL) 30 mg Take 30 mg by mouth once daily. Qty: 30 tablet Refills: 3 Cholecalciferol (Vitamin D3) 5,000 Units Take 5,000 Units by mouth once daily. aspirin 81 mg Take 81 mg by mouth once daily. Refills: 0 lamoTRIgine (LaMICtal) 200 mg Take 200 mg by mouth once daily. aripiprazole(ABILIFY 20 MG TAB) Take one(1) tablet daily. Refills: 0 senna-docusate (SENNA-S) 1 tablet Take 1 tablet by mouth twice daily. polyethylene glycol 3350 (MIRALAX, GLYCOLAX) 17 g Take 17 g by mouth once daily as needed (constipation). docusate sodium (COLACE) 100 mg Take 100 mg by mouth twice daily. Qty: 60 capsule Refills: 2 Transitions of Care Critical Issues: Home Health for vac dressing changes to left stump wounds every Wednesday/ Wednesday/ Wednesday LABS AND PROCEDURES PENDING AT DISCHARGE: Culture Results (stump cx) Outpatient Management: * Are there important medication changes and/or outstanding issues that need to be addressed: None * What is the plan for follow up: Dr. Aragon in one week Future Appointments: Future Appointments Date Time Provider Department Center 04/26/2018 1:15 PM [id number], [facility] This patient?s risk for 30-day readmission is determined using the following contributing drivers Pt variables contributing to increased readmission risk: 12 Most Recent BUN Result 11 Active Medication Orders 8.7 First Resulted Calcium During Admission 4 Number of Previous ED Visits (6 mos.) 3 Number of Hospitalizations (12 mos.) 1 Previous ED Visit (6 mos.)? 1 Insurance - Medicare 1 Discharge Disposition - Home Health Care 1 Active Anticoagulant Electronically SIGNED by Licensed Independent Practitioner: Vivian Lea PA-C NURSING PROG Observed: 04/19/2018 Status: COMPLETED Source: [place] 1:46 PM CLINIC OTHER CAMPUS REPOSITORY HNO ID: [id number] Author: Darrell JeffriesRn) SARAH Serna Service: Nursing Author Type: Registered Nurse Type: Nursing Progress Note Filed: 04/19/2018 8:36 PM Note Text: Nursing Progress Note Patient Name: Neil Mendenhall [id number] Daily Note: 0930 pt assessment completed. Pt c/o left extremity pain. Will medicate. Pt denies sob, dizziness, nausea or vomiting. No signs of distress. Dressing intact w/o signs of bleeding. 193 wound vac applied. Pt tolerated well. 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 Call light within reach. Safety maintained. Will continue to monitor This note was completed by: Darrell Serna RN CASE MANAGEM Observed: 04/19/2018 Status: COMPLETED Source: [place] 1:33 PM [facility] OTHER [place] REPOSITORY HNO ID: [id number] Author: Cherri Ceron (Lisw-S) Service: Case Management Author Type: Lead Web Developer Type: Care Mgt Progress Note Filed: 04/19/2018 1:37 PM Note Text: CARE MANAGEMENT DISCHARGE NOTE SERVICE DATE: 04/19/2018 SERVICE TIME: 1:34 PM LOS: 1 day Admission Date: 04/18/2018 DISCHARGE ARRANGEMENT (list agency and phone number) Home Care - Nursing, PT, OT and Wound Provider: [facility] CAREGIVER ASSESSMENT: Caregiver is ready, willing and able to meet the patient's needs as recommended by the inter-professional team? Yes Patient's transition needs and plan for meeting these needs: Pt plans to go home with [facility] and friends will assist Does the patient have an acute stroke diagnosis, or has the patient had a stroke during this admission? No HANDOFF COMMUNICATION: Primary Care Physician: Dr. Trujillo Phone Number: See chart TRANSPORTATION ARRANGEMENTS: Car with friends or family ADDITIONAL CONTACT RESOURCES: None Pt to be d/c home with [facility] (she used them in the past), and will need [facility] for PT/OT and assistance with wound vac. Wound Vac ordered through [facility]; will be delivered within 4-6 hours. CM will remain available. SIGNATURE: VITA Blunt PATIENT NAME: Neil Mendenhall DATE: April 19, 2018 TIME: 1:34 PM PAGER/CONTACT #: [phone] PROGRESS Observed: 04/19/2018 Status: COMPLETED Source: [place] 11:59 AM [facility] OTHER [place] REPOSITORY HNO ID: [id number] Author: Vivian Lea (Pa) Service: Vascular Surgery Author Type: Physician Swimmer Type: Progress Notes Filed: 04/19/2018 12:07 PM Note Text: [facility] POSTOP PROGRESS NOTE Service Date: 04/19/2018Admit Date: 04/18/2018Service Time: 1115 LOS: 1 day(s) Primary Service: Vascular Surgery Vascular Physician: Flo Aragon M.D Interval Events/Issues: No events. Cx -no growth to date. Tolerating diet, pain controlled and urinating without issue. No CP/SOB. Subjective Current hospital medications: ceFAZolin iv piggyback 2 g in D5W (iso-osmotic) 100 mL (ANCEF) 2 g INTRAVENOUS q 8 HR apixaban 5 mg tab(s) (ELIQUIS) 5 mg ORAL BID fentaNYL 50 mcg/mL 25 mcg injection (SUBLIMAZE) 25 mcg INTRAVENOUS q 5 MIN PRN lamoTRIgine 200 mg tab(s) (LaMICtal) 200 mg ORAL DAILY simvastatin 40 mg tab(s) (ZOCOR) 40 mg ORAL DAILY ARIPiprazole 20 mg tab(s) (ABILIFY) 20 mg ORAL DAILY NIFEdipine XL 30 mg tab(s) (ADALAT CC) 30 mg ORAL DAILY aspirin 81 mg chewable tab(s) 81 mg ORAL DAILY acetaminophen 650 mg tab(s) (TYLENOL) 650 mg ORAL q 4 H PRN oxyCODONE IR 5-10 mg tab(s) (ROXICODONE) 5-10 mg ORAL q 4 H PRN morphine 2 mg injection 2 mg INTRAVENOUS q 3 H PRN Medication and Non-Pharmacologic VTE Prophylaxis/Anticoagulants Anticoagulant AND Antiplatelet Medications Start Dose Route Frequency Ordered Stop 04/19/18 1100 apixaban 5 mg tab(s) (ELIQUIS) 5 mg ORAL 2 TIMES DAILY 04/19/18 1053 -- 04/18/18 2330 aspirin 81 mg chewable tab(s) 81 mg ORAL DAILY 04/18/18 2236 -- 04/18/18 2245 pneumatic compression stockings (wa,dc) 04/18/18 2245 graduated compression stockings (wa,dc) 04/18/18 2245 activity - mobilize patient (wa,dc) VTE Prophylaxis: not indicated due to therapeutic AC ALLERGIES Allergen Reactions - Horizant [Gabapenti* Mental Status Change - Wellbutrin [Bupropi* Other: See Comments Took med on Wednesday Woke up 3 days later in hospital Objective PHYSICAL EXAM: Patient Vitals for the past 24 hrs: BP Temp Temp src Pulse Resp SpO2 Height Weight 04/19/18 0727 126/68 36.7 ?C (98.1 ?F) Oral 69 14 94 % - - 04/19/18 0000 136/66 37.1 ?C (98.7 ?F) Oral 76 16 97 % - - 04/18/18 2312 169/75 36.6 ?C (97.8 ?F) Oral 79 16 97 % - - 04/18/18 2240 - - - - - - 167.6 cm (5' 6) - 04/18/18 2215 168/71 - - 69 13 97 % - - 04/18/18 2200 172/92 - - 83 13 99 % - - 04/18/18 2145 165/89 - - 87 18 100 % - - 04/18/18 2130 162/77 - - 79 14 100 % - - 04/18/18 2113 153/80 36.9 ?C (98.4 ?F) - 97 18 99 % - - 04/18/18 1835 145/75 36.4 ?C (97.5 ?F) - (!) 59 16 100 % 167.6 cm (5' 6) 79.4 kg (175 lb 0.7 oz) Intake/Output Summary (Last 24 hours) at 04/19/18 1159 Last data filed at 04/19/18 0900 Gross per 24 hour Intake 400 ml Output 210 ml Net 190 ml CONSTITUTIONAL: Well developed and No distress NEUROLOGIC/PSYCHIATRIC: Oriented to time, place AND person and Alert LUNGS: Clear HEART: Regular rate AND rhythm ABDOMEN: Soft and Bowel sounds present INTEGUMENTARY: Wound - No SURGICAL SITES: Lower extremity - LLE BK stump wounds: 7 cm L x 4 cm W x 2 cm D (medial wound), 3 cm L x 1 cm W x 0.5 cm D (central wound) MUSCULOSKELETAL: L BKA Pulses/Signals: 2+ R PT pulse DATA: Laboratory: Recent Labs 04/19/18 0535 WBC 5.09 HB 10.8* HCT 34.0* PLT 438* Recent Labs 04/19/18 0535 NA 144 K 3.4* BUN 12 CREAT 0.74 GLUC 109* MG 1.9 Assessment/Plan Impression: Neil Mendenhall is a 52 year old White female who is POD# 1 Excisional debridement left lower extremity sq tissue, muscle and fat Plan: Continue ASA, resume home dose Eliquis F/U cx results, no growth to date, plan to complete 10 day course po keflex Home vac paperwork filled out for LLE BK stumps wounds manager licensing for dc planning -[facility] Discharge home today if able to get home vac and arrange for [facility] Home vac dressing to LLE stump wound: black foam, continuous 125 mmHg, change 04/22/2018 then every Wednesday/ Wednesday/ Wednesday, OK for wounds to be bridged F/U Dr. Aragon in one week Problem Amputation Stump Infection (Hcc) History: 52 year old female who presents with hypercoagulable state s/p LLE BKA, had a fall with wound breakdown, presents to the OR for debridement of wound Plan: 04/18/2018 Excisional debridement left lower extremity sq tissue, muscle and fat Stump cultures in process, f/u final cx, complete course po keflex Vac dressing placed to LLE BK stump wounds: 7 cm L x 4 cm W x 2 cm D (medial wound), 3 cm L x 1 cm W x 0.5 cm D (central wound) F/U Dr. Aragon in one week Pvd (Peripheral Vascular Disease) ([facility]) History: 52 year old female with ischemic rest pain and digit 3 tissue loss, hypercoagulable state w lupus, multiple failed bypass and stents with 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 Home meds: ASA//Eliquis 2+ R DP pulse Plan: Continue home meds Htn (Hypertension) Home med: nifedipine Plan: Continue home med Bipolar disorder (HCC) Home meds: lamictal 200mg daily and abilify 20mg daily Plan: Continue home meds Hyperlipidemia Home med: Pravachol Plan: Continue home med Lupus Anticoagulant With Hypercoagulable State (Hcc) Home med: Eliquis Plan: Continue Eliquis Hypokalemia replace prn S/P Bka (Below Knee Amputation) Unilateral, Left (Hcc) SIGNATURE: Vivian Lea PA-C PATIENT NAME: Neil Mendenhall DATE: April 19, 2018 TIME: 11:15 AM PAGER/CONTACT #: [phone] ETX#[id number] CASE MGT INIT Observed: 04/19/2018 Status: COMPLETED Source: [place] 10:09 AM CLINIC OTHER CAMPUS REPOSITORY HNO ID: [id number] Author: Cherri Ceron (Lisw-S) Service: Case Management Author Type: Lead Web Developer Type: Care Mgt Initial Assessment Filed: 04/19/2018 10:17 AM Note Text: CARE MANAGEMENT: ASSESSMENT AND DISCHARGE PLAN SERVICE DATE: 04/19/2018 SERVICE TIME: 10:09 AM PRIMARY CARE PHYSICIAN: Dheeraj Trujillo MD ADMISSION STATUS: Observation Needs Prior to Discharge: To Be Determined;Wound Care;Home Care Order;Accepting Facility;Pharmacy Bedside Delivery 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 No Advance Directive: Current Advance Directive: None Manager Strategic Attempted to Assist with AD Completion: Yes Action: Education Provided (Pt said that she has paperwork at home and is in the process of completing it) Health Literacy: 1. How often do you need to have someone help you when you read instructions, pamphlets, or other written material from your doctor or pharmacy? Sometimes - 3 2. How confident are you filling out medical forms by yourself? Somewhat - 3 If Patient scores > 3 on either question, the following interventions were put into place: Use of plain language and active listening with Patient and family, Use concrete and specific phrases, avoid medical jargon and sister helps FUNCTIONAL AND COGNITIVE/BEHAVIORAL PRIOR TO ADMISSION: Baseline Mental Status: Alert AND Oriented, Person, Place , Time and Situation Functional Status: Independent Does Patient Currently Receive Any Community Services or Home Care? Home Health Care Agency: [facility]; Phone: Unk; Active. Psychiatry Equipment Prior to Admission: Tub bench/chair Walker Wheelchair Has the Patient Been in a Group Home Facility in the Past 30 days? No SOCIAL: Living Arrangement: Home Lives With: Alone Financial Resources: Disabled Primary Contact: Extended Emergency Contact Information Primary Emergency Contact: Mckinley Chacko Mobile Relation: Sister Secondary Emergency Contact: Kathryn Santiago Mobile Relation: Sister Supportive: Yes Other Important Patient Contacts: None Caregiver Assessment: Caregiver is ready, willing and able to meet the patient's needs as recommended by the inter-professional team? Yes Patient's transition needs and plan for meeting these needs: Pt to go home with [facility] Does the patient have an acute stroke diagnosis, or has the patient had a stroke during this admission? No Medication Adherence: I am convinced of the importance of my prescription medication: Agree completely - 0 I worry that my prescription medication will do more harm than good to me Disagree completely - 0 I feel financially burdened by my [id number] expenses for my prescription medication: Disagree completely - 0 Patient is categorized as low risk < 2 Are you interested in bedside delivery of your medications? Yes Food Concerns: In the Last Month, Have You had Trouble Getting Food? No trouble getting food During the Last Month, Have You Worried Whether Your Food Would Run Out Before You Had Enough Money to Buy More? No Is the Patient Psychosocially Complex? No ASSESSMENT AND PLAN: Medical Needs: None Psychosocial Needs: None FREEDOM OF CHOICE EXPLAINED: Yes to pt Preference: Home with [facility] POTENTIAL TRANSITION PLANS Home Home Prison OT/PT To Be Determined Pt is a 52 yo F admitted to [address] d/t amputation stump infection. Pt is from home where she lives alone, but she said that she is going to have some friends stay with her for awhile to assist care as needed. Pt ambulates with a walker or a wheelchair. Pt has a shower chair at home. Pt is on SSDI. Pt reports compliance with her medications. She said that her sister assists her if needed with reading and understanding medical paperwork and information. Pt said that she had a psychiatrist, but her psychiatrist recently left the practice so the outpatient practice that she goes to in [place] is in the process of trying to assist with providing her with a new psychiatrist. Pt recently had home PT/OT ([facility]). Will need a new [facility] F2F at d/c. Pt's goal is to get out. She anticipates having transportation home at d/c. CM will remain available. SIGNATURE: VITA Blunt PATIENT NAME: Neil Mendenhall DATE: April 19, 2018 TIME: 10:09 AM PAGER/CONTACT #: [phone] PROGRESS Observed: 04/19/2018 Status: COMPLETED Source: [facility] 7:14 AM CLINIC OTHER CAMPUS REPOSITORY HNO ID: [id number] Author: Florentin Bustamante MD Service: Vascular Surgery Author Type: Resident Type: Progress Notes Filed: 04/19/2018 7:20 AM Note Text: [facility] VASCULAR SURGERY POSTOP PROGRESS NOTE Service Date: 04/19/2018Admit Date: 04/18/2018Service Time: 0700 LOS: 1 day(s) Primary Service: Vascular Surgery Vascular Physician: Flo Aragon M.D Interval Events/Issues: No acute issues, pain well controlled, dressings changed Subjective Current hospital medications: influenza vaccine 60 mcg (Patients 3 to 64 years) (PF) (FLUZONE ) 0.5 mL INTRAMUSCULAR ONCE (IMMUNIZATION) fentaNYL 50 mcg/mL 25 mcg injection (SUBLIMAZE) 25 mcg INTRAVENOUS q 5 MIN PRN lamoTRIgine 200 mg tab(s) (LaMICtal) 200 mg ORAL DAILY simvastatin 40 mg tab(s) (ZOCOR) 40 mg ORAL DAILY ARIPiprazole 20 mg tab(s) (ABILIFY) 20 mg ORAL DAILY NIFEdipine XL 30 mg tab(s) (ADALAT CC) 30 mg ORAL DAILY aspirin 81 mg chewable tab(s) 81 mg ORAL DAILY heparin 5,000 Units injection 5,000 Units SUBCUTANEOUS q 12 H acetaminophen 650 mg tab(s) (TYLENOL) 650 mg ORAL q 4 H PRN oxyCODONE IR 5-10 mg tab(s) (ROXICODONE) 5-10 mg ORAL q 4 H PRN morphine 2 mg injection 2 mg INTRAVENOUS q 3 H PRN Medication and Non-Pharmacologic VTE Prophylaxis/Anticoagulants Anticoagulant AND Antiplatelet Medications Start Dose Route Frequency Ordered Stop 04/18/18 2330 aspirin 81 mg chewable tab(s) 81 mg ORAL DAILY 04/18/18 223 -- 04/18/18 2300 heparin 5,000 Units injection (Surgical Moderate Risk ) 5,000 Units SUBCUTANEOUS EVERY 12 HOURS 04/18/18 223 -- 04/18/18 224 pneumatic compression stockings (wa,dc) 04/18/18 224 graduated compression stockings (wa,oh) 04/18/18 224 activity - mobilize patient (wa,dc) VTE Prophylaxis: VTE prophylaxis appropriate ALLERGIES Allergen Reactions - Horizant [Gabapenti* Mental Status Change - Wellbutrin [Bupropi* Other: See Comments Took med on Wednesday Woke up 3 days later in hospital Objective PHYSICAL EXAM: Patient Vitals for the past 24 hrs: BP Temp Temp src Pulse Resp SpO2 Height Weight 04/19/18 0000 136/66 37.1 ?C (98.7 ?F) Oral 76 16 97 % - - 04/18/18 2312 169/75 36.6 ?C (97.8 ?F) Oral 79 16 97 % - - 04/18/18 2240 - - - - - - 167.6 cm (5' 6) - 04/18/18 2215 168/71 - - 69 13 97 % - - 04/18/18 2200 172/92 - - 83 13 99 % - - 04/18/18 2145 165/89 - - 87 18 100 % - - 04/18/18 2130 162/77 - - 79 14 100 % - - 04/18/18 2113 153/80 36.9 ?C (98.4 ?F) - 97 18 99 % - - 04/18/18 1835 145/75 36.4 ?C (97.5 ?F) - (!) 59 16 100 % 167.6 cm (5' 6) 79.4 kg (175 lb 0.7 oz) Intake/Output Summary (Last 24 hours) at 04/19/18 0715 Last data filed at 04/19/18 0000 Gross per 24 hour Intake 400 ml Output 10 ml Net 390 ml CONSTITUTIONAL: Overweight NEUROLOGIC/PSYCHIATRIC: Oriented to time, place AND person HEENT: No lesions LUNGS: Respiratory effort: normal INTEGUMENTARY: Wound - Yes. 4cm x 1.5cm wound at the medial aspect of the amputation wound, 1cm x 2cm wound at the central area of the the incision SURGICAL SITES: None MUSCULOSKELETAL: No deformities DATA: Laboratory: Recent Labs 04/19/18 0535 WBC 5.09 HB 10.8* HCT 34.0* PLT 438* Assessment/Plan Impression: Neil Mendenhall is a 52 year old White female with a history of PAD who s/p BKA complicated by wound infection who underwent incision and drainage 04/18. Plan: Wound vac to be placed today Heart healthy diet Asa, lamicatal, nifedipine, zocor Hep ppx CM for HHC with wound vac HOSPITALIZATION(S) Indication for hospital admission/procedure: LE ischemia Important/Relevant PMH/PSH: PAD, s/p stents placement in RLE, s/p revascularisation x 2 in LLE, carotid artery disease, small vessel disease, bipolar disorder Overall Course (narrative, include presentation and problems managed prior to surgery or admission to Current Unit): Patient presented to OSH with LLE ischemia, had SFA occlusion, underwent lysis today and then was transferred to the clinic for further management Procedure/Surgeries: 04/20/2014 LLE lysis at OSH 04/21/2014 diagnostic angiogram, lytic check, angio jet thrombolysis Findings: Left SFA thrombus, Left PT proximal thrombus, distal AT thrombus, tibioperoneal trunk and proximal AT patent 04/22/2014 left femoral angiogram w runoff, removal infusion wires/catheters AND sheath (Rt) Findings: complete lysis Left SFA w/o underlying stenosis, same PT (? Area just beyond ankle), peroneal collateralizes above ankle, AT mid-prox occlusion same Airway Difficulty: not known UNIT (summarize and move summary to overall course prior to transfer of care) Course in Current Unit (narrative): Today's Impression and Plan 04/22/2014 (include currently managed major problems): Transfer to Step-down unit today. LLE ischemia: lysis discontinued has palpable PTs, and bilateral DP signals Postop pain managed with dilaudid STUDY ABROAD ADVISOR, dosage increased PAD Bipolar disorder: continued on home meds Neuropathy: continued on home meds AISSATOU: intermittant while here: CPAP ordered QHS Smoker: states she is quitting Issues to communicate at signout: as above No problems updated. SIGNATURE: Florentin Bustamante MD PATIENT NAME: Neil Mendenhall DATE: April 19, 2018 TIME: 7:15 AM PAGER/CONTACT #: [phone] CBC Collected: 04/19/2018 Status: F Source: [facility] 5:35 AM CLINIC OTHER CAMPUS REPOSITORY TYPE CODE TESTS RESULT OUT OF REFERENCE UNITS RANGE LAB WBC 3.70-11.00 k/uL WBC 5.09 LAB RBC 3.90-5.20 m/uL RBC 3.92 LAB HGB 11.5-15.5 g/dL Low Hemoglobin 10.8 LAB HCT 36.0-46.0 % Low Hematocrit 34.0 LAB MCV 80.0-100.0 fL MCV 86.7 LAB MCH 26.0-34.0 pG MCH 27.6 LAB MCHC 30.5-36.0 g/dL MCHC 31.8 LAB RDWCV 11.5-15.0 % RDW-CV 14.5 LAB PLTCT 150-400 k/uL Platelet High Count 438 LAB MPV 9.0-12.7 fL MPV 9.9 Performed By: #### CBC, CMP, MG1, PHOS #### [place] [id number] [place] [address] COMP METABOLIC PANEL Collected: 04/19/2018 Status: F Source: [facility] 5:35 AM CLINIC OTHER CAMPUS REPOSITORY TYPE CODE TESTS RESULT OUT OF REFERENCE UNITS RANGE LAB TP 6.0-8.4 g/dL Protein, Total 6.0 LAB ALB 3.5-5.0 g/dL Albumin 3.6 LAB CA 8.5-10.5 mg/dL Calcium, Total 8.7 LAB TBIL 0.2-1.3 mg/dL Bilirubin, Total 0.3 LAB ALKP 34-123 U/L Alkaline Phosphatase 97 LAB AST 7-40 U/L AST High 46 LAB GLU 65-100 mg/dL Glucose High 109 LAB BUN 8-25 mg/dL BUN 12 LAB CRET 0.70-1.40 mg/dL Creatinine 0.74 LAB NA 132-148 mmol/L Sodium 144 LAB K 3.5-5.0 mmol/L Potassium Low 3.4 LAB CL 98-110 mmol/L Chloride 107 LAB CO2 23-32 mmol/L CO2 Low 21 LAB AGAP 9-18 mmol/L Anion Gap 16 LAB ALT 0-45 U/L ALT High 48 LAB GFRAA >60 eGFR- >60 Amer. LAB GFRNAA >60 . eGFR-All Other Races >60 Performed By: #### CBC, CMP, MG1, PHOS #### [place] [id number] [place] [address] MAGNESIUM Collected: 04/19/2018 Status: F Source: [facility] 5:35 AM CLINIC OTHER CAMPUS REPOSITORY TYPE CODE TESTS RESULT OUT OF REFERENCE UNITS RANGE LAB MG 1.7-2.6 mg/dL Magnesium 1.9 Performed By: #### CBC, CMP, MG1, PHOS #### [facility] [address] [place] [address] PHOSPHORUS Collected: 04/19/2018 Status: F Source: [facility] 5:35 AM [facility] REPOSITORY TYPE CODE TESTS RESULT OUT OF REFERENCE UNITS RANGE LAB PHOS 2.5-4.5 mg/dL Phosphorus 4.1 Performed By: #### CBC, CMP, MG1, PHOS #### [place] [id number] [place] [phone] NURSING PROG Observed: 04/19/2018 Status: COMPLETED Source: [facility] 1:01 AM [facility] REPOSITORY HNO ID: [id number] Author: Angelic (Rn) SARAH Bean Service: (none) Author Type: Registered Nurse Type: Nursing Progress Note Filed: 04/19/2018 1:02 AM Note Text: Nursing Progress Note Patient Name: Neil Mendenhall Patient Location: [place] [address]/[place] [address]* 2300- Patient admitted from PACU in stable condition. C/o pain in LLE - oxycodone given with good results. LLE elevated on pillow. Post op dressing intact. Oriented to room and unit. Call light within reach. Will continue to monitor. This note was completed by: Angelic Bean RN ANES POST Observed: 04/18/2018 Status: COMPLETED Source: [facility] 10:20 PM [facility] REPOSITORY HNO ID: [id number] Author: Umm Baldwin Service: Anesthesiology Author Type: Anesthesiologist Type: Anesthesia PostOp Filed: 04/18/2018 10:20 PM Note Text: POST ANESTHESIA EVALUATION NOTE SERVICE DATE: 04/18/2018 SERVICE TIME: 2209 : 1965 Vitals: 04/18/18 1835 04/18/18 2113 Temp: 36.4 ?C (97.5 ?F) 36.9 ?C (98.4 ?F) 04/18/18212904/18/18214404/18/18219904/18/182214 BP: 162/77 165/89 172/92 168/71 04/18/18212904/18/18214404/18/18219904/18/182214 Pulse: 79 87 83 69 04/18/18212904/18/18214404/18/18219904/18/182214 Resp: 14 18 13 13 04/18/18212904/18/18214404/18/18219904/18/182214 SpO2: 100% 100% 99% 97% Validated Vital Signs: Yes POST ANES STATUS: No apparent anesthetic complications. The patient is appropriately hydrated with stable respiratory and cardiovascular status. Patient has safe and adequate airway control. The patient has appropriate pain relief and no significant post operative nausea or vomiting. The patient has achieved baseline mental status. Intra-Operative Events: No Significant Anesthesia Events Further assessment by Anesthesia Service: None Other Remarks: SIGNATURE: Umm Baldwin MD PATIENT NAME: Neil Mendenhall DATE: April 18, 2018 TIME: 10:20 PM PAGER/CONTACT #: [email or web address] OP NOT Observed: 04/18/2018 Status: COMPLETED Source: [facility] 9:23 PM [facility] REPOSITORY O ID: [id number] Author: Jp Lomas Service: Vascular Surgery Author Type: Resident Type: Brief Op Note Filed: 04/18/2018 9:25 PM Note Text: BRIEF OP NOTE LOG ID: [id number] Surgery/Procedure Date: 04/18/2018 Incision/Procedure Start Time: 8:47 PM Incision Close/Procedure End Time: 9:01 PM Surgeon(s)/Proceduralist(s) and Swimmer(s): Surgeon(s) and Role: * Flo Aragon - Primary * Jp Lomas - Assisting Procedure(s): incision and debridement of left below knee amputation wound Anesthesia: General Findings: left below knee amputation wound infection Estimated Blood Loss: 10 mls Specimens: left BKA tissue Complications: None Pre-Op/Pre-Procedure Diagnosis: amputation stump infection Post-Op/Post-Procedure Diagnosis: Amputation stump infection (HCC) [T87.40] SIGNATURE: Jp Lomas MD PATIENT NAME: Neil Mendenhall DATE: April 18, 2018 TIME: 9:24 PM PAGER/CONTACT #: [email or web address] Observed: 04/18/2018 Status: F Source: [facility] CULTURE/STAIN 9:00 PM [facility] REPOSITORY Sp. Request/Comment: - Eswab Smear Result - No organisms seen Rare Polymorphonuclear leukocytes Culture Result - Rare Pseudomonas aeruginosa --> ABNORMAL ALERT Rare --> ABNORMAL ALERT Enterobacter cloacae complex --> ABNORMAL ALERT ORGANISM: Pseudomonas aeruginosa METHOD: Minimum inhibitory concentration(Vitek) Antibiotic Interp BG Status Gentamicin SUSCEPTIBLE <=1 F Ciprofloxacin SUSCEPTIBLE <=0.25 F Cefepime SUSCEPTIBLE <=1 F Piperacillin/Tazobac SUSCEPTIBLE <=4 F Meropenem SUSCEPTIBLE <=0.25 F ORGANISM: Enterobacter cloacae complex METHOD: Minimum inhibitory concentration(Vitek) Antibiotic Interp BG Status Ampicillin RESISTANT F Gentamicin SUSCEPTIBLE <=1 F Trimeth sulfameth SUSCEPTIBLE <=20 F Cefazolin RESISTANT >=64 F Ciprofloxacin SUSCEPTIBLE <=0.25 F Cefepime SUSCEPTIBLE <=1 F Piperacillin/Tazobac SUSCEPTIBLE <=4 F Ampicillin Sulbact RESISTANT F Ceftriaxone SUSCEPTIBLE <=1 F Enterobacter, Citrobacter, and Serratia may develop resistance during prolonged therapy with third generation cephalosporins as a result of derepression of AmpC beta lactamase. Meropenem SUSCEPTIBLE <=0.25 F Ertapenem SUSCEPTIBLE <=0.5 F Performed By: #### WCUL #### [facility] [address] [address] Observed: 04/18/2018 Status: F Source: [facility] ANAEROBE CULTURE 9:00 PM [facility] REPOSITORY Sp. Request/Comment: - Eswab Culture Result - Rare Finegoldia magna --> ABNORMAL ALERT Antimicrobial susceptibility testing is not routinely performed on anaerobes from non sterile sites or in mixed cultures. Call lab within 72 hours to initiate work up if clinically indicated. --> ABNORMAL ALERT Performed By: #### ANACUL #### [facility] [address] [id number] OPERATIVE NO Observed: 04/18/2018 Status: COMPLETED Source: [facility] 8:33 PM [facility] REPOSITORY HNO ID: [id number] Author: Flo Aragon Service: Vascular Surgery Author Type: Physician Type: Operative Report Filed: 04/19/2018 9:37 AM Note Text: OPERATIVE/PROCEDURE REPORT LOG ID: [id number] Surgery/Procedure Date: 04/18/2018 Incision/Procedure Start Time:8:47 PM Incision Close/Procedure End Time: 9:01 PM Surgeon(s)/Proceduralist(s) and Swimmer(s): Surgeon(s) and Role: * Flo Aragon - Primary * Jp (Jamilah) Abebe - Assisting No Additional Staff Procedure(s): Excisional debridement left lower extremity sq tissue, muscle and fat measuring [id number] Anesthesia: General Operative Indication: 52 year old female who presents with hypercoagulable state s/p LLE BKA, had a fall with wound breakdown, presents to the OR for debridement of wound after a discussion of the risks/benefits/alternatives. Procedure details: The patient was taken to the operating room, laid supine on the operating table. After time-in, anesthesia was induced by the anesthesiologist. The patient's lower extremity amputation stump was prepped and draped in the usual sterile fashion. A curette and 15 blade was used to debride the muscle, fascia, and subcutaneous fat along the medial aspect of the wound for [id number]. This did not probe to bone. There was no purulence or malodor. The muscle underneath this appeared dull. The lateral aspect of the wound superficial escar was unroofed. The wound was then dressed with a kerlix and alli wrap. Pre-Op/Pre-Procedure Diagnosis: wound Post-Op/Post-Procedure Diagnosis: same Estimated Blood Loss: 10 mls Specimens: left leg deep space culture Implantable Devices: None Drains: None Complications: None The primary surgeon/proceduralist performed the procedure with assistance. 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 PAST MEDICAL HISTORY: PAST MEDICAL HISTORY Diagnosis Date - Carotid artery disease (HCC) PAST SURGICAL HISTORY: PAST SURGICAL HISTORY Procedure Laterality Date - ANGIO TRANSLUM BALL ANGIO ANGELO 2008 [id number] FAMILY HISTORY: No family history on file. SOCIAL HISTORY: Social History Substance Use Topics - Smoking status: Former Smoker Packs/day: 0.50 Years: 25.00 Types: Cigarettes Quit date: 09/01/2009 - Smokeless tobacco: Never Used Comment: currently using electronic cigarette - Alcohol use No MEDICATIONS: -PLEASE SEE EPIC- ALLERGIES: ALLERGIES Allergen Reactions - Horizant [Gabapenti* Mental Status Change - Wellbutrin [Bupropi* Other: See Comments Took med on Wednesday Woke up 3 days later in hospital COMPLETE REVIEW OF SYSTEMS: All other reviewed and negative other than HPI. PHYSICAL EXAM: BP 145/75 Pulse (!) 59 Temp 36.4 ?C (97.5 ?F) Resp 16 Ht 167.6 cm (5' 6) Wt 79.4 kg (175 lb 0.7 oz) LMP 08/07/2011 SpO2 100% BMI 28.25 kg/m? PHYSICAL EXAMINATION: General appearance: well appearing, alert, in no acute distress and well-hydrated, well nourished Lungs: non-labored breathing, symmetric chest expansion Abdomen: Abdomen soft, non-tender. Extremities: LLE extremity amputation with purulent drainage and eschar DATA: none SIGNATURE:Jp Lomas MD GENERAL SURGERY PGY-3 PAGER:[phone] DATE of SERVICE: 04/18/2018 TIME of SERVICE: 8:02 PM [facility] STAFF PHYSICIAN NOTE OF PERSONAL INVOLVEMENT IN CARE I have reviewed the history and physical examination obtained and documented by the resident and I personally participated in the mcadams components. I have discussed the case and management of the patient's care. The following comments revise or confirm relevant mcadams components of their note. LLE bka stump debridement Ctab, no w/r/c/s Rrr, nl s1s2, no murmur/rub/gallop LLE bk medial and lateral stump eschar Flo Aragon MD Staff, Vascular Surgery April 18, 2018 8:31 PM ANES PREOP Observed: 04/18/2018 Status: COMPLETED Source: [facility] 7:30 PM CLINIC OTHER CAMPUS REPOSITORY HNO ID: [id number] Author: Umm Baldwin Service: Anesthesiology Author Type: Anesthesiologist Type: Anesthesia PreOp Filed: 04/18/2018 7:33 PM Note Text: REGIONAL ANESTHESIOLOGY PREOPERATIVE ASSESSMENT Surgeon(s): Flo Aragon Procedure(s) (LRB): DEBRIDEMENT MUSCLE/FASCIA FIRST 20 SQ CM OR LESS LOWER EXTREMITY (Left) Vitals: 04/18/18 1835 BP: 145/75 Pulse: (!) 59 Resp: 16 Temp: 36.4 ?C (97.5 ?F) SpO2: 100% Weight: 79.4 kg (175 lb 0.7 oz) Height: 167.6 cm (5' 6) ACTIVE PROBLEM LIST Bipolar affective Carotid Artery Disease (Hcc) Pvd (Peripheral Vascular Disease) (Hcc) Postoperative Pain Arterial Occlusion, Lower Extremity (Hcc) Bipolar disorder (HCC) Hyperlipidemia Neuropathic Pain Aissatou (Obstructive Sleep Apnea) Smoker Thrombus S/P Bka (Below Knee Amputation) Unilateral, Left (Hcc) Htn (Hypertension) Lupus Anticoagulant With Hypercoagulable State (Hcc) Amputation Stump Infection (Hcc) Status Post Surgery PAST MEDICAL HISTORY Diagnosis Date - Carotid artery disease (HCC) PAST SURGICAL HISTORY Procedure Laterality Date - ANGIO TRANSLUM BALL ANGIO ANGELO 2008 [id number] No family history on file. Social History: Social History Substance Use Topics - Smoking status: Former Smoker Packs/day: 0.50 Years: 25.00 Types: Cigarettes Quit date: 09/01/2009 - Smokeless tobacco: Never Used Comment: currently using electronic cigarette - Alcohol use No No current facility-administered medications on file prior to encounter. Current Outpatient Prescriptions on File Prior to Encounter: cephALEXin (KEFLEX) 500 mg capsule Take 1 capsule by mouth three times daily for 10 days. acetaminophen (TYLENOL) 325 mg tablet Take 2 tablets by mouth every 6 hours. apixaban (ELIQUIS) 5 mg tab(s) Take 1 tablet by mouth twice daily. starting 02/28/2018 at 9 pm pravastatin (PRAVACHOL) 80 mg tablet Take 80 mg by mouth once daily. NIFEdipine ER (PROCARDIA XL) 30 mg 24 hr tablet Take 1 tablet by mouth once daily. Cholecalciferol, Vitamin D3, 5,000 unit cap Take 5,000 Units by mouth once daily. aspirin 81 mg chewable tablet Take 1 tablet by mouth once daily. lamoTRIgine (LAMICTAL) 200 mg tablet Take 200 mg by mouth once daily. aripiprazole(ABILIFY 20 MG TAB) Take one(1) tablet daily. senna-docusate (SENNA-S) 8.6-50 mg per tablet Take 1 tablet by mouth twice daily. polyethylene glycol 3350 (MIRALAX, GLYCOLAX) 17 gram packet Take 1 Packet by mouth once daily as needed (constipation). docusate sodium (COLACE) 100 mg capsule Take 1 capsule by mouth twice daily. Current Facility-Administered Medications: lidocaine 10 mg/mL (1 %) 1-2 mg injection (XYLOCAINE) 0.1- 0.2 mL INTRADERMAL PRN Florentin (Res) MD Dianna lactated ringers infusion 5-30 mL/hr INTRAVENOUS CONTINUOUS Florentin (Res) MD Dianna ceFAZolin iv piggyback 2 g in D5W (iso-osmotic) 100 mL (ANCEF) 2 g INTRAVENOUS Pre-Op Once Florentin (Res) MD Dianna Allergies: ALLERGIES Allergen Reactions - Horizant [Gabapenti* Mental Status Change - Wellbutrin [Bupropi* Other: See Comments Took med on Wednesday Woke up 3 days later in hospital REVIEW OF SYSTEMS: As stated in Active Problem List/ Past Medical History Hemoglobin 10.1 02/22/2018 Hematocrit 31.4 02/22/2018 Sodium 137 02/21/2018 Glucose 103 02/21/2018 Potassium 4.0 02/21/2018 Platelet Count 467 02/22/2018 PT Sec 9.9 02/19/2018 APTT 26.9 02/22/2018 PT INR 1.0 02/19/2018 Creatinine 0.70 02/21/2018 HCG Qualitative, Urine Negative 04/21/2014 EKG RESULTS: SINUS RHYTHM ABNRM R PROG, CONSIDER ASMI OR LEAD PLACEMENT Abnormal ECG ANESTHESIOLOGY REVIEW: Airway Assessment: MP 1; Neck ROM: Full ROM without neurologic symptoms; Airway Evaluation: Small Mouth Opening Symptoms of Sleep Apnea: yes Intubation History: No previous history of difficult intubation Dentition: Edentulous ADVERSE ANESTHESIA EVENT: No history of adverse event FAMILY HIISTORY OF ANESTHESIA: No known issues Blood Products: Will accept Blood/Blood Products Other Medical Problems: None Additional Physical Exam: Lungs: Lungs clear to auscultation. Good diaphragmatic excursion. Cardiac: normal S1 and S2; no rubs, no murmurs, and no gallops Additional pertinent findings: N/A I have interviewed and examined the patient. I have reviewed the medical record and/or the pre-anesthesia evaluation, pertinent labs, and test results. Significant changes in the patient's condition since the History and Physical, not otherwise documented in primary service progress notes: No Anesthetic risks, benefits, alternatives, personnel and consent discussed. Yes ASA 3 NPO >8 hours PLAN: GA This contains updated information obtained within 48 hours of Surgery/Procedure. SIGNATURE: Umm Baldwin MD PATIENT NAME: Neil Mendenhall DATE: April 18, 2018 TIME: 7:31 PM PAGER/CONTACT #: HISTORY PHYSICAL Observed: 04/18/2018 Status: COMPLETED Source: [place] 6:51 PM [facility] REPOSITORY HNO ID: [id number] Author: Jp (Igor Lomas Service: Vascular Surgery Author Type: Resident Type: HANDP Filed: 04/18/2018 6:51 PM Note Text: UPDATED HISTORY AND PHYSICAL EXAMINATION SERVICE DATE: 04/18/2018 SERVICE TIME: April 18, 2018 PHYSICAL EXAM MUST BE COMPLETED ON ADMISSION The History and Physical (completed in the past 30 days) has been reviewed and the patient has been examined. The contents accurately reflect the patient's condition with the following additions or revisions since the HANDP was completed. Examination indicates no changes. This HANDP can be found in the Electronic Medical Record dated 04/12/18. SIGNATURE: Jp Lomas MD PATIENT NAME: Neil Mendenhall DATE: April 18, 2018 TIME: 6:51 PM PAGER: NURSING PROG Observed: 04/14/2018 Status: COMPLETED Source: [place] 9:15 AM [facility] REPOSITORY HNO ID: [id number] Author: Sarah JeffriesRn) SARAH Campbell Service: (none) Author Type: Registered Nurse Type: Nursing Progress Note Filed: 04/14/2018 9:39 AM Note Text: PACC Nurse Progress Note History AND Physical: PACC Visit Date: N/A Original HANDP Date: 03/30 in Care Everywhere ED visit Date: N/A Outside HANDP Scanned Date: N/A Labs Within Last 6 Months: CBC: 02/22 BMP/CMP: Date 02/21 PTT: 02/22 available in [facility] Imaging Within Last 12 Months: N/A Cardiac Testing: EKG in last 12 Months: Yes: Date: 02/20/18, Comment: in [facility] Last Menstrual Period: LMP Date: unknown Postmenopausal >1yr: unknown, S/P Hysterectomy: unknown BMI Percentile (PEDS): N/A Risk Assessment: N/A Anesthesia Review: N/A Narrative: N/A Pre-op Considerations: Last dose of eliquis, per patient, 04/12 Chart Check: COMPLETED Sarah Campbell RN April 14, 2018 9:15 AM Pre op instructions given to patient. States understanding, denies questions. PATIENT PREOPERATIVE INSTRUCTIONS No ref. provider found has scheduled you for your procedure at this surgery center: [facility]: [phone] -[id number] [place] [address]. Please check in on the 1st floor at registration desk 6. Please read below carefully for your personalized instructions. Blood Thinning Medications: - Stop NSAIDS (Ibuprofen, Advil, Aleve, Motrin, Celebrex, Mobic, etc.) now days before surgery, as directed by your surgeon. - Stop Vitamin E, ALL multi-vitamins, herbals and dietary supplements now days before surgery. Dietary Restrictions: - Nothing to eat or drink after midnight except for a sip of water with approved medications. - Do not drink any alcohol after midnight the night before your surgery. Pain Medications: Medications: Approved medications to take the morning of surgery with a sip of water: Lamictal, abilify, and procardia If you start any new medications after today's visit, please contact the surgeon's office. Important Reminders: - Candy, mints, gum and tobacco products are NOT permitted the morning of surgery. - Hearing aids, dentures and glasses may be worn the morning of surgery. - NO jewelry, body piercings, makeup, hairpins or contacts are to be worn the day of surgery. shower with antibacterial soap If you develop symptoms such as a fever, cold, or flu, or have other changes to your health within TWO DAYS of scheduled surgery or the morning of surgery, please contact the surgery center above. Personal Belongings: - Leave ALL valuables and money at home or with family members. For Outpatient Procedures: - YOU MUST HAVE A RESPONSIBLE ONION TOPPER TAKE YOU HOME. A ORDER TRACER OR DIRECTOR DATA CANNOT BE MADE A RESPONSIBLE ONION TOPPER. - We recommend that a responsible person stays with you overnight to take care of you. - You cannot stay in a hotel alone after outpatient surgery. You will not be permitted to have your surgery, if you do not have someone to take care of you. Arrival Time for Surgery: [facility] Please be aware that emergency situations arise, which may delay or change your surgical time. If this happens, we will notify you as soon as possible and regret any inconvenience. Sarah Campbell RN HOSP Observed: 04/13/2018 Status: COMPLETED Source: [place] 12:00 AM CLINIC OTHER CAMPUS REPOSITORY Patient:Neil Mendenhall MRN: <[id number]> Height:5' 6(1.676 m) Weight:175 lb 0.7 oz (79.4 kg) Outpatient Medications as of 04/18/18: cephALEXin (KEFLEX) 500 mg capsule acetaminophen (TYLENOL) 325 mg tablet senna-docusate (SENNA-S) 8.6-50 mg per tablet polyethylene glycol 3350 (MIRALAX, GLYCOLAX) 17 gram packet apixaban (ELIQUIS) 5 mg tab(s) pravastatin (PRAVACHOL) 80 mg tablet docusate sodium (COLACE) 100 mg capsule NIFEdipine ER (PROCARDIA XL) 30 mg 24 hr tablet Cholecalciferol, Vitamin D3, 5,000 unit cap aspirin 81 mg chewable tablet lamoTRIgine (LAMICTAL) 200 mg tablet aripiprazole(ABILIFY 20 MG TAB) Admission/Clinic Administered Medications as of 04/18/18: lidocaine 10 mg/mL (1 %) 1-2 mg injection (XYLOCAINE) lactated ringers infusion ceFAZolin iv piggyback 2 g in D5W (iso-osmotic) 100 mL (ANCEF) acetaminophen 1,000 mg tab(s) (TYLENOL) promethazine 12.5 mg tab(s) (PHENERGAN) lactated ringers infusion albuterol 2.5 mg /3 mL (0.083 %) 2.5 mg (PROVENTIL) lactated ringers infusion fentaNYL 50 mcg/mL 25 mcg injection (SUBLIMAZE) morphine 2 mg injection oxyCODONE IR 5 mg tab(s) (ROXICODONE) ondansetron 4 mg tab(s) (ZOFRAN) ondansetron (PF) 4 mg injection (ZOFRAN) scopolamine 1 mg over 3 days 1 Patch (TRANSDERM-SCOP) scopolamine - VERIFY patch scopolamine - REMOVE PATCH meperidine (PF) 12.5 mg injection (DEMEROL) Problem List: Bipolar affective [F31.9] Carotid artery disease (HCC) [I77.9] PVD (peripheral vascular disease) (HCC) [I73.9] Postoperative pain [G89.18] Arterial occlusion, lower extremity (HCC) [I70.209] Bipolar disorder (HCC) [F31.9] Hyperlipidemia [E78.5] Neuropathic pain [M79.2] AISSATOU (obstructive sleep apnea) [G47.33] Smoker [F17.200] Thrombus [I82.90] S/P BKA (below knee amputation) unilateral, left (HCC) [Z89.512] HTN (hypertension) [I10] Lupus anticoagulant with hypercoagulable state (HCC) [D68.62] Amputation stump infection (HCC) [T87.40] Status post surgery [Z98.890] Allergies: Horizant [Gabapentin Enacarbil] Wellbutrin [Bupropion Hcl] Date Verified: 04/18/18 Lab Values No results within the last 30 days for the following basenames: K,HCT Progress Notes ([facility]): Shazia Ji PA-C 04/14/2018 10:02 AM Signed Procedure 04/15 at . Patient has complete HANDP 03/30/2018 in care everywhere. Recent EKG/labs in [facility]. Prior surgery at 02/2018. No PACC needed. Dr. Aragon per his note asked patient to be off of Eliquis for 2 days. Shazia Ji PA-C Progress Notes ([facility]): Flo Aragon MD 04/12/2018 3:04 PM Signed [facility] ESTABLISHED PATIENT NOTE April 12, 2018 History obtained from: record in [facility], patient, friend ? 52 year old female with ? LLE BKA Since last seen, had a fall Wound w purulent drainage medially and eschar anteirorlry Meds include: Current Outpatient Prescriptions: acetaminophen (TYLENOL) 325 mg tablet Take 2 tablets by mouth every 6 hours. senna-docusate (SENNA-S) 8.6-50 mg per tablet Take 1 tablet by mouth twice daily. polyethylene glycol 3350 (MIRALAX, GLYCOLAX) 17 gram packet Take 1 Packet by mouth once daily as needed (constipation). apixaban (ELIQUIS) 5 mg tab(s) Take 1 tablet by mouth twice daily. starting 02/28/2018 at 9 pm pravastatin (PRAVACHOL) 80 mg tablet Take 80 mg by mouth once daily. docusate sodium (COLACE) 100 mg capsule Take 1 capsule by mouth twice daily. NIFEdipine ER (PROCARDIA XL) 30 mg 24 hr tablet Take 1 tablet by mouth once daily. Cholecalciferol, Vitamin D3, 5,000 unit cap Take 5,000 Units by mouth once daily. aspirin 81 mg chewable tablet Take 1 tablet by mouth once daily. lamoTRIgine (LAMICTAL) 200 mg tablet Take 200 mg by mouth once daily. aripiprazole(ABILIFY 20 MG TAB) Take one(1) tablet daily. No current facility-administered medications for this visit. Tob: Tobacco Use: .5 packs/day, for 25 years. Quit 09/01/2009. Types: Cigarettes (currently using electronic cigarette) Focused Physical Exam: BP 121/90 Wt 175 lb (79.4kg) LMP 08/07/2011 Nad, aANDox3 LLE bk stump medial aspect w purulent drainage and anterior aspect with eschar Labs: Creatinine Date Value Ref Range Status 02/21/2018 0.70 0.70 - 1.40 mg/dL Final 02/20/2018 0.69 (L) 0.70 - 1.40 mg/dL Final 02/19/2018 0.71 0.70 - 1.40 mg/dL Final 02/05/2018 0.79 0.70 - 1.40 mg/dL Final Cholesterol, Total Date Value Ref Range Status 03/27/2010 229 (H) 100 - 199 mg/dL Final HDL Cholesterol Date Value Ref Range Status 03/27/2010 53 (L) >55 mg/dL Final LDL Cholesterol Date Value Ref Range Status 03/27/2010 153 (H) 60 - 129 mg/dL Final Triglyceride Date Value Ref Range Status 03/27/2010 117 30 - 149 mg/dL Final Glucose Date Value Ref Range Status 02/21/2018 103 (H) 65 - 100 mg/dL Final No results found for: HBA1C Impression and plan: 52F s/p LLE BKA, superficial wound breakdown Surgery recommended Amputation stump debridement Keflex It has been clearly explained to the patient that the risks of surgery include bleeding, infection, scarring. The patient clearly understands these risks and is willing to accept them and proceed with surgery. I spent more than 50% of the visit counseling the patient on the plan and treatment options. Face to Face time was 15 minutes. Flo Aragon MD Staff, Vascular Surgery April 12, 2018 3:01 PM Ondina Ambrosio RN 04/12/2018 3:02 PM Signed continue wet to dry dressing Keflex 500 mg three times daily STOP Eliquis 2 days prior to procedure PROGRESS Observed: 04/12/2018 Status: COMPLETED Source: [place] 3:01 PM [facility] REPOSITORY [facility] ID: [id number] Author: Flo Aragon Service: (none) Author Type: Physician Type: Progress Notes Filed: 04/12/2018 3:04 PM Note Text: [facility] ESTABLISHED PATIENT NOTE April 12, 2018 History obtained from: record in [facility], patient, friend ? 52 year old female with ? LLE BKA Since last seen, had a fall Wound w purulent drainage medially and eschar anteirorlry Meds include: Current Outpatient Prescriptions: acetaminophen (TYLENOL) 325 mg tablet Take 2 tablets by mouth every 6 hours. senna-docusate (SENNA-S) 8.6-50 mg per tablet Take 1 tablet by mouth twice daily. polyethylene glycol 3350 (MIRALAX, GLYCOLAX) 17 gram packet Take 1 Packet by mouth once daily as needed (constipation). apixaban (ELIQUIS) 5 mg tab(s) Take 1 tablet by mouth twice daily. starting 02/28/2018 at 9 pm pravastatin (PRAVACHOL) 80 mg tablet Take 80 mg by mouth once daily. docusate sodium (COLACE) 100 mg capsule Take 1 capsule by mouth twice daily. NIFEdipine ER (PROCARDIA XL) 30 mg 24 hr tablet Take 1 tablet by mouth once daily. Cholecalciferol, Vitamin D3, 5,000 unit cap Take 5,000 Units by mouth once daily. aspirin 81 mg chewable tablet Take 1 tablet by mouth once daily. lamoTRIgine (LAMICTAL) 200 mg tablet Take 200 mg by mouth once daily. aripiprazole(ABILIFY 20 MG TAB) Take one(1) tablet daily. No current facility-administered medications for this visit. Tob: Tobacco Use: .5 packs/day, for 25 years. Quit 09/01/2009. Types: Cigarettes (currently using electronic cigarette) Focused Physical Exam: BP 121/90 Wt 175 lb (79.4kg) LMP 08/07/2011 Nad, aANDox3 LLE bk stump medial aspect w purulent drainage and anterior aspect with eschar Labs: Creatinine Date Value Ref Range Status 02/21/2018 0.70 0.70 - 1.40 mg/dL Final 02/20/2018 0.69 (L) 0.70 - 1.40 mg/dL Final 02/19/2018 0.71 0.70 - 1.40 mg/dL Final 02/05/2018 0.79 0.70 - 1.40 mg/dL Final Cholesterol, Total Date Value Ref Range Status 03/27/2010 229 (H) 100 - 199 mg/dL Final HDL Cholesterol Date Value Ref Range Status 03/27/2010 53 (L) >55 mg/dL Final LDL Cholesterol Date Value Ref Range Status 03/27/2010 153 (H) 60 - 129 mg/dL Final Triglyceride Date Value Ref Range Status 03/27/2010 117 30 - 149 mg/dL Final Glucose Date Value Ref Range Status 02/21/2018 103 (H) 65 - 100 mg/dL Final No results found for: HBA1C Impression and plan: 52F s/p LLE BKA, superficial wound breakdown Surgery recommended Amputation stump debridement Keflex It has been clearly explained to the patient that the risks of surgery include bleeding, infection, scarring. The patient clearly understands these risks and is willing to accept them and proceed with surgery. I spent more than 50% of the visit counseling the patient on the plan and treatment options. Face to Face time was 15 minutes. Flo Aragon MD Staff, Vascular Surgery April 12, 2018 3:01 PM CNOV Observed: 04/12/2018 Status: COMPLETED Source: [place] 2:15 PM [facility] REPOSITORY Office Visit ([facility]) NEIL MENDENHALL ([id number]) 1965 F Date Time Provider Department 04/12/18 2:15 PM FLO ARAGON [facility] During your visit today, we recorded the following information about you: Blood pressure Weight 121/90 79.4 kg Flo Aragon MD 04/12/2018 3:04 PM Signed [facility] ESTABLISHED PATIENT NOTE April 12, 2018 History obtained from: record in [facility], patient, friend ? 52 year old female with ? LLE BKA Since last seen, had a fall Wound w purulent drainage medially and eschar anteirorlry Meds include: Current Outpatient Prescriptions: acetaminophen (TYLENOL) 325 mg tablet Take 2 tablets by mouth every 6 hours. senna-docusate (SENNA-S) 8.6-50 mg per tablet Take 1 tablet by mouth twice daily. polyethylene glycol 3350 (MIRALAX, GLYCOLAX) 17 gram packet Take 1 Packet by mouth once daily as needed (constipation). apixaban (ELIQUIS) 5 mg tab(s) Take 1 tablet by mouth twice daily. starting 02/28/2018 at 9 pm pravastatin (PRAVACHOL) 80 mg tablet Take 80 mg by mouth once daily. docusate sodium (COLACE) 100 mg capsule Take 1 capsule by mouth twice daily. NIFEdipine ER (PROCARDIA XL) 30 mg 24 hr tablet Take 1 tablet by mouth once daily. Cholecalciferol, Vitamin D3, 5,000 unit cap Take 5,000 Units by mouth once daily. aspirin 81 mg chewable tablet Take 1 tablet by mouth once daily. lamoTRIgine (LAMICTAL) 200 mg tablet Take 200 mg by mouth once daily. aripiprazole(ABILIFY 20 MG TAB) Take one(1) tablet daily. No current facility-administered medications for this visit. Tob: Tobacco Use: .5 packs/day, for 25 years. Quit 09/01/2009. Types: Cigarettes (currently using electronic cigarette) Focused Physical Exam: BP 121/90 Wt 175 lb (79.4kg) LMP 08/07/2011 Nad, aANDox3 LLE bk stump medial aspect w purulent drainage and anterior aspect with eschar Labs: Creatinine Date Value Ref Range Status 02/21/2018 0.70 0.70 - 1.40 mg/dL Final 02/20/2018 0.69 (L) 0.70 - 1.40 mg/dL Final 02/19/2018 0.71 0.70 - 1.40 mg/dL Final 02/05/2018 0.79 0.70 - 1.40 mg/dL Final Cholesterol, Total Date Value Ref Range Status 03/27/2010 229 (H) 100 - 199 mg/dL Final HDL Cholesterol Date Value Ref Range Status 03/27/2010 53 (L) >55 mg/dL Final LDL Cholesterol Date Value Ref Range Status 03/27/2010 153 (H) 60 - 129 mg/dL Final Triglyceride Date Value Ref Range Status 03/27/2010 117 30 - 149 mg/dL Final Glucose Date Value Ref Range Status 02/21/2018 103 (H) 65 - 100 mg/dL Final No results found for: HBA1C Impression and plan: 52F s/p LLE BKA, superficial wound breakdown Surgery recommended Amputation stump debridement Keflex It has been clearly explained to the patient that the risks of surgery include bleeding, infection, scarring. The patient clearly understands these risks and is willing to accept them and proceed with surgery. I spent more than 50% of the visit counseling the patient on the plan and treatment options. Face to Face time was 15 minutes. Flo Aragon MD Staff, Vascular Surgery April 12, 2018 3:01 PM Ondina Ambrosio RN 04/12/2018 3:02 PM Signed continue wet to dry dressing Keflex 500 mg three times daily STOP Eliquis 2 days prior to procedure Referring Provider: FLO ARAGON [[id number]] Allergies As of Date: 04/12/2018 Noted Allergy Reaction HORIZANT (GABAPENTIN ENACARBIL) 04/19/2014 1 - Mental Status Change WELLBUTRIN (BUPROPION HCL) 11/13/2011 14 - Other: See Comments Comments: Took med on Wednesday Woke up 3 days later in hospital Date Reviewed: 04/12/2018 Reviewed by: Flo Aragon - Fully Assessed Reason for Visit: Post Op [174] Cmt: left bka 02/18/2018 Reason For Visit History Recorded Primary Visit Diagnosis:Arterial occlusion, lower extremity (HCC) [I70.209] Other Visit Diagnoses:Hyperlipidemia, unspecified hyperlipidemia type [E78.5] Hypercoagulable state (HCC) [D68.59] Order(s):cephALEXin (KEFLEX) 500 mg capsuleTake 1 capsule by mouth three times daily for 10 days.Disp: 30 capsuleRfl: 0 Prescriptions as of 04/12/2018 Sig: CEPHALEXIN 500 MG CAPSULE Take 1 capsule by mouth three* ACETAMINOPHEN 325 MG TABLET Take 2 tablets by mouth every* SENNOSIDES 8.6 MG-DOCUSATE SO* Take 1 tablet by mouth twice * POLYETHYLENE GLYCOL 3350 17 G* Take 1 Packet by mouth once d* APIXABAN 5 MG TABLET Take 1 tablet by mouth twice * PRAVASTATIN 80 MG TABLET Take 80 mg by mouth once shahram* DOCUSATE SODIUM 100 MG CAPSULE Take 1 capsule by mouth twice* NIFEDIPINE ER 30 MG TABLET,EX* Take 1 tablet by mouth once d* CHOLECALCIFEROL (VITAMIN D3) * Take 5,000 Units by mouth onc* ASPIRIN 81 MG CHEWABLE TABLET Take 1 tablet by mouth once d* LAMOTRIGINE 200 MG TABLET Take 200 mg by mouth once chaitanya* * ABILIFY 20 MG TABLET Take one(1) tablet daily. Problem List As Of Date 04/12/2018 Noted Resolved Bipolar affective [F31.9] INVALID FOR* Carotid artery disease [I77.9] INVALID FOR* PVD (peripheral vascular disease) (HCC) [I73.9] INVALID FOR* Priority: A More... Postoperative pain [G89.18] INVALID FOR* Priority: D More... Dehydration [E86.0] INVALID FOR*04/22/2014 Priority: F More... Arterial occlusion, lower extremity (HCC) [I70.*INVALID FOR* Priority: A More... Bipolar disorder (HCC) [F31.9] INVALID FOR* Priority: C More... Hyperlipidemia [E78.5] INVALID FOR* Priority: C More... Neuropathic pain [M79.2] INVALID FOR* Priority: D More... AISSATOU (obstructive sleep apnea) [G47.33] INVALID FOR* Priority: D More... Smoker [F17.200] INVALID FOR* Priority: E More... Thrombus [I82.90] INVALID FOR* Critical lower limb ischemia [I99.8] INVALID FOR*11/15/2017 Priority: A S/P BKA (below knee amputation) unilateral, lef*INVALID FOR* HTN (hypertension) [I10] INVALID FOR* Priority: B More... Lupus anticoagulant with hypercoagulable state *INVALID FOR* Priority: D More... Other instructions from your clinician: continue wet to dry dressing Keflex 500 mg three times daily STOP Eliquis 2 days prior to procedure Prescriptions ordered this encounter Disp Refills Start End CEPHALEXIN 500 MG CAPSULE 30 c* 0 04/12/2018 04/22/2018 Route: ORAL Sig: Take 1 capsule by mouth three times daily for 10 days. Encounter Status:Closed by FLO ARAGON MD on 04/12/18 [facility] Observed: 04/07/2018 Status: COMPLETED Source: [place] 12:00 AM [facility] REPOSITORY Telephone ([facility]) NEIL MENDENHALL ([id number]) 1965 F Date Time Provider Department 04/07/18 FLO ARAGON [facility] During your visit today, we recorded the following information about you: Laura Monaco PSR 04/07/2018 10:59 AM Signed Patient states that her wound is seeping - it is slimy with puss- not hot, not red and there is no pain. Call her @ [phone]- ok to leave a message. Laura Monaco PSR 04/07/2018 4:23 PM Signed Happy to see her in clinic. If red/hot/infected, go to ER. Flo Valente (Routing comment) You routed conversation to Flo Aragon; Benita Surg Nurse Pool 5 hours ago (10:59 AM) You 5 hours ago (10:55 AM) Allergies As of Date: 04/07/2018 Noted Allergy Reaction HORIZANT (GABAPENTIN ENACARBIL) 04/19/2014 1 - Mental Status Change WELLBUTRIN (BUPROPION HCL) 11/13/2011 14 - Other: See Comments Comments: Took med on Wednesday Woke up 3 days later in hospital Date Reviewed: 03/22/2018 Reviewed by: Flo Aragon - Fully Assessed Reason for Visit: Question [1327] Prescriptions as of 04/07/2018 Sig: ACETAMINOPHEN 325 MG TABLET Take 2 tablets by mouth every* SENNOSIDES 8.6 MG-DOCUSATE SO* Take 1 tablet by mouth twice * POLYETHYLENE GLYCOL 3350 17 G* Take 1 Packet by mouth once d* APIXABAN 5 MG TABLET Take 1 tablet by mouth twice * PRAVASTATIN 80 MG TABLET Take 80 mg by mouth once shahram* DOCUSATE SODIUM 100 MG CAPSULE Take 1 capsule by mouth twice* NIFEDIPINE ER 30 MG TABLET,EX* Take 1 tablet by mouth once d* CHOLECALCIFEROL (VITAMIN D3) * Take 5,000 Units by mouth onc* ASPIRIN 81 MG CHEWABLE TABLET Take 1 tablet by mouth once d* LAMOTRIGINE 200 MG TABLET Take 200 mg by mouth once chaitanya* * ABILIFY 20 MG TABLET Take one(1) tablet daily. Problem List As Of Date 04/07/2018 Noted Resolved Bipolar affective [F31.9] INVALID FOR* Carotid artery disease [I77.9] INVALID FOR* PVD (peripheral vascular disease) (HCC) [I73.9] INVALID FOR* Priority: A More... Postoperative pain [G89.18] INVALID FOR* Priority: D More... Dehydration [E86.0] INVALID FOR*04/22/2014 Priority: F More... Arterial occlusion, lower extremity (HCC) [I70.*INVALID FOR* Priority: A More... Bipolar disorder (HCC) [F31.9] INVALID FOR* Priority: C More... Hyperlipidemia [E78.5] INVALID FOR* Priority: C More... Neuropathic pain [M79.2] INVALID FOR* Priority: D More... AISSATOU (obstructive sleep apnea) [G47.33] INVALID FOR* Priority: D More... Smoker [F17.200] INVALID FOR* Priority: E More... Thrombus [I82.90] INVALID FOR* Critical lower limb ischemia [I99.8] INVALID FOR*11/15/2017 Priority: A S/P BKA (below knee amputation) unilateral, lef*INVALID FOR* HTN (hypertension) [I10] INVALID FOR* Priority: B More... Lupus anticoagulant with hypercoagulable state *INVALID FOR* Priority: D More... Encounter Status:Closed by LAURA ORTEGA on 04/07/18 PROGRESS Observed: 03/22/2018 Status: COMPLETED Source: [place] 1:33 PM [facility] REPOSITORY [facility] ID: [id number] Author: Flo Aragon Service: (none) Author Type: Physician Type: Progress Notes Filed: 03/22/2018 1:41 PM Note Text: [facility] ESTABLISHED PATIENT NOTE March 22, 2018 History obtained from: record in [facility], patient, friend ? 52 year old female with ? Surgery/Procedure Date: 02/18/2018 Surgeon(s)/Proceduralist(s) and Swimmer(s): * Flo Aragon - Primary Procedure(s): left lower extremity below knee amputation Surgery/Procedure Date:?11/11/2017? Surgeon(s)/Proceduralist(s) and Swimmer(s):???* Flo Aragon - Primary Procedure(s): left?common femoral to above knee popliteal bypass with 7mm ringed PTFE Left distal PT exposure by the medial malleolus ? occlusion of the left?lower extremity superficial femoral artery presents for common femoral to above knee popliteal bypass as well as PT thrombectomy after attemting an endovascular repair Distal PT artery with hyperplasi which was nearly obliterating the lumen She does not have any discernible outflow down her leg to the foot Culminated in bka, healing apprporiately ? Imaging studies: I have personally viewed the following images/data: 02/09/18 duplex: occluded bypass 02/09/18 RABI 1.06, LABI 0.45 12/14/17 patent gas operation manager and bypass 12/14/17 RABI 1.16; LABI 0.73 Meds include: Current Outpatient Prescriptions: acetaminophen (TYLENOL) 325 mg tablet Take 2 tablets by mouth every 6 hours. senna-docusate (SENNA-S) 8.6-50 mg per tablet Take 1 tablet by mouth twice daily. polyethylene glycol 3350 (MIRALAX, GLYCOLAX) 17 gram packet Take 1 Packet by mouth once daily as needed (constipation). apixaban (ELIQUIS) 5 mg tab(s) Take 1 tablet by mouth twice daily. starting 02/28/2018 at 9 pm pravastatin (PRAVACHOL) 80 mg tablet Take 80 mg by mouth once daily. docusate sodium (COLACE) 100 mg capsule Take 1 capsule by mouth twice daily. NIFEdipine ER (PROCARDIA XL) 30 mg 24 hr tablet Take 1 tablet by mouth once daily. Cholecalciferol, Vitamin D3, 5,000 unit cap Take 5,000 Units by mouth once daily. aspirin 81 mg chewable tablet Take 1 tablet by mouth once daily. lamoTRIgine (LAMICTAL) 200 mg tablet Take 200 mg by mouth once daily. aripiprazole(ABILIFY 20 MG TAB) Take one(1) tablet daily. No current facility-administered medications for this visit. Tob: Tobacco Use: .5 packs/day, for 25 years. Quit 09/01/2009. Types: Cigarettes (currently using electronic cigarette) Focused Physical Exam: BP 98/50 Pulse 79 LMP 08/07/2011 Nad, aANDox3 rrr Non-labored Soft, ntnd BK stump cdi, sam in place Labs: Creatinine Date Value Ref Range Status 02/21/2018 0.70 0.70 - 1.40 mg/dL Final 02/20/2018 0.69 (L) 0.70 - 1.40 mg/dL Final 02/19/2018 0.71 0.70 - 1.40 mg/dL Final 02/05/2018 0.79 0.70 - 1.40 mg/dL Final Cholesterol, Total Date Value Ref Range Status 03/27/2010 229 (H) 100 - 199 mg/dL Final HDL Cholesterol Date Value Ref Range Status 03/27/2010 53 (L) >55 mg/dL Final LDL Cholesterol Date Value Ref Range Status 03/27/2010 153 (H) 60 - 129 mg/dL Final Triglyceride Date Value Ref Range Status 03/27/2010 117 30 - 149 mg/dL Final Glucose Date Value Ref Range Status 02/21/2018 103 (H) 65 - 100 mg/dL Final No results found for: HBA1C Impression and plan: 52F s/p LLE fem-ak pop w ptfe for pad, lupus anticoagulant positive, bypass occluded despite ac and now w BKA ? Fu 6 months w areli/pvr Continue anti-coagulation w eliquis. Also on asa/plavix ? Understands need for best medical care and continued follow up for this problem including after any intervention/operation for it. Counseled regarding above and reviewed signs and symptoms of peripheral vascular disease as a marker of overall cardiovascular health at length ? Hypertension: -Blood pressure control. Target <140/90, <130/85 for high risk, 120/80 normal Antiplatelet: -cont?asa/plavix Hyperlipidemia: -cont statin with goal TC < 200, TG < 150, HDL > 45 for men and >55 for women, LDL < 100 or <70 for high risk Physical inactivity: regular walking exercise with goal 30 minutes continuously @ 2-3mph for minimum 5 days/week. ? I spent more than 50% of the visit counseling the patient on the plan and treatment options. ?Face to Face time was 15?minutes. Flo Aragon MD Staff, Vascular Surgery March 22, 2018 1:33 PM CNOV Observed: 03/22/2018 Status: COMPLETED Source: [place] 1:00 PM [facility] REPOSITORY Office Visit ([facility]) NEIL MENDENHALL ([id number]) 1965 F Date Time Provider Department 03/22/18 1:00 PM FLO ARAGON [facility] During your visit today, we recorded the following information about you: Pulse Blood pressure 79/minute 98/50 Flo Aragon MD 03/22/2018 1:41 PM Signed [facility]ULAR [facility] ESTABLISHED PATIENT NOTE March 22, 2018 History obtained from: record in Epic, patient, friend ? 52 year old female with ? Surgery/Procedure Date: 02/18/2018 Surgeon(s)/Proceduralist(s) and Swimmer(s): * Flo Aragon - Primary Procedure(s): left lower extremity below knee amputation Surgery/Procedure Date:?11/11/2017? Surgeon(s)/Proceduralist(s) and Swimmer(s):???* Flo rAagon - Primary Procedure(s): left?common femoral to above knee popliteal bypass with 7mm ringed PTFE Left distal PT exposure by the medial malleolus ? occlusion of the left?lower extremity superficial femoral artery presents for common femoral to above knee popliteal bypass as well as PT thrombectomy after attemting an endovascular repair Distal PT artery with hyperplasi which was nearly obliterating the lumen She does not have any discernible outflow down her leg to the foot Culminated in bka, healing apprporiately ? Imaging studies: I have personally viewed the following images/data: 02/09/18 duplex: occluded bypass 02/09/18 RABI 1.06, LABI 0.45 12/14/17 patent gas operation manager and bypass 12/14/17 RABI 1.16; LABI 0.73 Meds include: Current Outpatient Prescriptions: acetaminophen (TYLENOL) 325 mg tablet Take 2 tablets by mouth every 6 hours. senna-docusate (SENNA-S) 8.6-50 mg per tablet Take 1 tablet by mouth twice daily. polyethylene glycol 3350 (MIRALAX, GLYCOLAX) 17 gram packet Take 1 Packet by mouth once daily as needed (constipation). apixaban (ELIQUIS) 5 mg tab(s) Take 1 tablet by mouth twice daily. starting 02/28/2018 at 9 pm pravastatin (PRAVACHOL) 80 mg tablet Take 80 mg by mouth once daily. docusate sodium (COLACE) 100 mg capsule Take 1 capsule by mouth twice daily. NIFEdipine ER (PROCARDIA XL) 30 mg 24 hr tablet Take 1 tablet by mouth once daily. Cholecalciferol, Vitamin D3, 5,000 unit cap Take 5,000 Units by mouth once daily. aspirin 81 mg chewable tablet Take 1 tablet by mouth once daily. lamoTRIgine (LAMICTAL) 200 mg tablet Take 200 mg by mouth once daily. aripiprazole(ABILIFY 20 MG TAB) Take one(1) tablet daily. No current facility-administered medications for this visit. Tob: Tobacco Use: .5 packs/day, for 25 years. Quit 09/01/2009. Types: Cigarettes (currently using electronic cigarette) Focused Physical Exam: BP 98/50 Pulse 79 LMP 08/07/2011 Nad, aANDox3 rrr Non-labored Soft, ntnd BK stump cdi, sam in place Labs: Creatinine Date Value Ref Range Status 02/21/2018 0.70 0.70 - 1.40 mg/dL Final 02/20/2018 0.69 (L) 0.70 - 1.40 mg/dL Final 02/19/2018 0.71 0.70 - 1.40 mg/dL Final 02/05/2018 0.79 0.70 - 1.40 mg/dL Final Cholesterol, Total Date Value Ref Range Status 03/27/2010 229 (H) 100 - 199 mg/dL Final HDL Cholesterol Date Value Ref Range Status 03/27/2010 53 (L) >55 mg/dL Final LDL Cholesterol Date Value Ref Range Status 03/27/2010 153 (H) 60 - 129 mg/dL Final Triglyceride Date Value Ref Range Status 03/27/2010 117 30 - 149 mg/dL Final Glucose Date Value Ref Range Status 02/21/2018 103 (H) 65 - 100 mg/dL Final No results found for: HBA1C Impression and plan: 52F s/p LLE fem-ak pop w ptfe for pad, lupus anticoagulant positive, bypass occluded despite ac and now w BKA ? Fu 6 months w areli/pvr Continue anti-coagulation w eliquis. Also on asa/plavix ? Understands need for best medical care and continued follow up for this problem including after any intervention/operation for it. Counseled regarding above and reviewed signs and symptoms of peripheral vascular disease as a marker of overall cardiovascular health at length ? Hypertension: -Blood pressure control. Target <140/90, <130/85 for high risk, 120/80 normal Antiplatelet: -cont?asa/plavix Hyperlipidemia: -cont statin with goal TC < 200, TG < 150, HDL > 45 for men and >55 for women, LDL < 100 or <70 for high risk Physical inactivity: regular walking exercise with goal 30 minutes continuously @ 2-3mph for minimum 5 days/week. ? I spent more than 50% of the visit counseling the patient on the plan and treatment options. ?Face to Face time was 15?minutes. Flo Aragon MD Staff, Vascular Surgery March 22, 2018 1:33 PM Referring Provider: FLO ARAGON [[id number]] Allergies As of Date: 03/22/2018 Noted Allergy Reaction HORIZANT (GABAPENTIN ENACARBIL) 04/19/2014 1 - Mental Status Change WELLBUTRIN (BUPROPION HCL) 11/13/2011 14 - Other: See Comments Comments: Took med on Wednesday Woke up 3 days later in hospital Date Reviewed: 03/22/2018 Reviewed by: Flo Aragon - Fully Assessed Reason for Visit: Post Op [174] Cmt: left bka 02/18 - remove sam today Reason For Visit History Recorded Primary Visit Diagnosis:Arterial occlusion, lower extremity (HCC) [I70.209] Other Visit Diagnoses:PAD (peripheral artery disease) [I73.9] Hyperlipidemia, unspecified hyperlipidemia type [E78.5] Hypercoagulable state (HCC) [D68.59] Prescriptions as of 03/22/2018 Sig: ACETAMINOPHEN 325 MG TABLET Take 2 tablets by mouth every* SENNOSIDES 8.6 MG-DOCUSATE SO* Take 1 tablet by mouth twice * POLYETHYLENE GLYCOL 3350 17 G* Take 1 Packet by mouth once d* APIXABAN 5 MG TABLET Take 1 tablet by mouth twice * PRAVASTATIN 80 MG TABLET Take 80 mg by mouth once shahram* DOCUSATE SODIUM 100 MG CAPSULE Take 1 capsule by mouth twice* NIFEDIPINE ER 30 MG TABLET,EX* Take 1 tablet by mouth once d* CHOLECALCIFEROL (VITAMIN D3) * Take 5,000 Units by mouth onc* ASPIRIN 81 MG CHEWABLE TABLET Take 1 tablet by mouth once d* LAMOTRIGINE 200 MG TABLET Take 200 mg by mouth once chaitanya* * ABILIFY 20 MG TABLET Take one(1) tablet daily. Problem List As Of Date 03/22/2018 Noted Resolved Bipolar affective [F31.9] INVALID FOR* Carotid artery disease [I77.9] INVALID FOR* PVD (peripheral vascular disease) (HCC) [I73.9] INVALID FOR* Priority: A More... Postoperative pain [G89.18] INVALID FOR* Priority: D More... Dehydration [E86.0] INVALID FOR*04/22/2014 Priority: F More... Arterial occlusion, lower extremity (HCC) [I70.*INVALID FOR* Priority: A More... Bipolar disorder (HCC) [F31.9] INVALID FOR* Priority: C More... Hyperlipidemia [E78.5] INVALID FOR* Priority: C More... Neuropathic pain [M79.2] INVALID FOR* Priority: D More... AISSATOU (obstructive sleep apnea) [G47.33] INVALID FOR* Priority: D More... Smoker [F17.200] INVALID FOR* Priority: E More... Thrombus [I82.90] INVALID FOR* Critical lower limb ischemia [I99.8] INVALID FOR*11/15/2017 Priority: A S/P BKA (below knee amputation) unilateral, lef*INVALID FOR* HTN (hypertension) [I10] INVALID FOR* Priority: B More... Lupus anticoagulant with hypercoagulable state *INVALID FOR* Priority: D More... Encounter Status:Closed by FLO ARAGON MD on 03/22/18 DISCHARGE SUMMARY Observed: 03/07/2018 Status: F Source: [place] 11:11 AM [facility] REPOSITORY [facility] Medical Records Department [address] [place] [address] Discharge Summary 03/07/18 1106 MR#: [id number] Acct: [id number] Name: NEIL MENDENHALL Rep #: [id number] : 1965 52 From: Norman Leyva MD PCP: Kathryn Galvan MD Status: ADM IN Y Location: [place] [address] Rehab Discharge Summary DATE OF ADMISSION: 02/22/18 DATE OF DISCHARGE: 03/08/18 - Rehab Diagnosis Debility status post left below the knee amputation Discharge Diet: No Restrictions Discharge Activity: Return to Normal Activity, May Not Drive, Use Walker Weight Bearing Status: Weight bearing as tolerated Lifting Restrict to (lbs):: 10 Call your doctor if your incision/area has: Continuous Slow Oozing, Sudden Increased Bleeding, Increased Pain/ Swelling, Increased Redness, Foul Smelling Discharge, Swelling at the incision site Call your doctor if you observe: Fever of 101 or Higher, Coldness, Increased Pain, Numbness or Tingling, Change in Color Home Medications: Medications to take at Discharge Aripiprazole [Abilify] 20 mg PO DAILY 04/19/14 Cholecalciferol (Vitamin D3) [Vitamin D] 5,000 unit PO DAILY 04/19/14 Lamotrigine [Lamictal] 200 mg PO DAILY 04/19/14 Acetaminophen [Tylenol] 650 mg PO Q6H PRN PRN 02/22/18 Apixaban [Eliquis] 5 mg PO BID 02/22/18 Aspirin [Aspirin, Baby] 81 mg PO DAILY@0800 02/22/18 Nifedipine [Nifedipine ER] 30 mg PO DAILY 02/22/18 Polyethylene Glycol 3350 [Miralax] 17 gm PO DAILY PRN 02/22/18 Pravastatin [Pravachol] 80 mg PO DAILY 02/22/18 Oxycodone [Oxyir] 10 mg PO Q4H PRN 7 Days tab 03/07/18 Pregabalin [Lyrica] 75 mg PO BID 7 Days cap 03/07/18 Senna/Docusate Sodium [Senokot-S] 2 tablet PO BID tablet 03/07/18 fentaNYL patch [Duragesic patch] 25 mcg TRANSDERM. Q3D #2 patch 03/07/18 Following Prescrptions Were Given to Patient: fentaNYL patch [Duragesic patch] 25 mcg TRANSDERM. Q3D #2 patch Oxycodone [Oxyir] 10 mg PO Q4H PRN 7 Days tab PRN Reason: Pain Pregabalin [Lyrica] 75 mg PO BID 7 Days cap Primary Care Physician: Kathryn Galvan MD [Primary Care Provider] - Please Follow Up With: Neil Mendieta NP When: Wednesday Minutes spent on discharge:: 45 Patient Condition:: Good Rehab Course per rehab H AND P: The patient is a 52 year old F admitted to the rehab unit status post left below the knee amputation performed 02/18/18 at [facility]. Goal of rehab is methodist of prior level of functional independence. Her surgeon at [facility] was Dr. Aragon. Her postoperative course was unremarkable. She says that her peripheral vascular disease is on the basis of hypercoagulable state due to lupus anticoagulant as well as smoking. She quit smoking about 3 months ago. She lives alone in her own home with 3 steps up to the main floor but she will need to negotiate 13 stairs on a regular basis. She says her pain currently is not well controlled, she has used Lyrica in the past and tolerated it. She did not tolerate gabapentin in the past. She says at [facility] she was given OxyContin 10 mg every 4 hours alternating with Tylenol which helped her pain she is willing to reinitiate Lyrica as well. Complaints. The patient's rehab course was uneventful. She did require increasing pain medications. She had a blister over her incision which drained and healed. Pain was controlled. She was discharged to home in good condition with instructions to follow-up with her surgeon. Meaningful Use Info Meaningful Use Diagnoses (Choose all that apply): None applicable 03/07/18 1111 <Electronically signed by Norman Leyva MD> Date Norman Murguia Signature (if applicable): Date CC: MD Kathryn Galvan; Norman Leyva MD Signed DISCHARGE INSTRUCTION Observed: 03/07/2018 Status: F Source: [place] 11:06 AM [facility] REPOSITORY [facility] Medical Records Department [address] [place] [address] Instructions for Home/Discharge Instructions 03/07/18 1104 MR#: [id number] Acct: [id number] Name: NEIL MENDENHALL Rep #: [id number] : 1965 52 From: Norman Leyva MD PCP: Kathryn Galvan MD Status: ADM IN - Discharge Diagnoses Current Active Problems: debility s/p left bka Reason(s) for Visit for Discharge Instructions: debility s/p left bka You will use the following diet at home:: No restrictions Your food should be the consistency of: Regular Your liquids should be the consistency of: Regular/Thin Discharge Activity: Return to Normal Activity, May Not Drive, Use Walker Weight Bearing Status: Weight bearing as tolerated Lifting Restrictions: 10 lbs Call your doctor if your incision/area has: Continuous Slow Oozing, Sudden Increased Bleeding, Increased Pain/ Swelling, Increased Redness, Foul Smelling Discharge, Swelling at the incision site Call your doctor if you observe: Fever of 101 or Higher, Coldness, Increased Pain, Numbness or Tingling, Change in Color Allergies/Adverse Reactions: Allergies bupropion HCl [From Wellbutrin] Allergy (Verified 04/19/14 06:26) Other gabapentin enacarbil [From Horizant] Allergy (Verified 04/19/14 06:26) Other Medications to take at Discharge Aripiprazole [Abilify] 20 mg PO DAILY 04/19/14 Cholecalciferol (Vitamin D3) [Vitamin D] 5,000 unit PO DAILY 04/19/14 Lamotrigine [Lamictal] 200 mg PO DAILY 04/19/14 Acetaminophen [Tylenol] 650 mg PO Q6H PRN PRN 02/22/18 Apixaban [Eliquis] 5 mg PO BID 02/22/18 Aspirin [Aspirin, Baby] 81 mg PO DAILY@0800 02/22/18 Nifedipine [Nifedipine ER] 30 mg PO DAILY 02/22/18 Polyethylene Glycol 3350 [Miralax] 17 gm PO DAILY PRN 02/22/18 Pravastatin [Pravachol] 80 mg PO DAILY 02/22/18 Oxycodone [Oxyir] 10 mg PO Q4H PRN 7 Days tab 03/07/18 Pregabalin [Lyrica] 75 mg PO BID 7 Days cap 03/07/18 Senna/Docusate Sodium [Senokot-S] 2 tablet PO BID tablet 03/07/18 fentaNYL patch [Duragesic patch] 25 mcg TRANSDERM. Q3D #2 patch 03/07/18 The following prescriptions were given: fentaNYL patch [Duragesic patch] 25 mcg TRANSDERM. Q3D #2 patch Oxycodone [Oxyir] 10 mg PO Q4H PRN 7 Days tab PRN Reason: Pain Pregabalin [Lyrica] 75 mg PO BID 7 Days cap Primary Care Physician: Kathryn Galvan MD [Primary Care Provider] - Test Results: Test results from this visit will be discussed in further detail at your follow-up appointment, if applicable. Please Follow Up With: Neil Mendieta NP When: Wednesday Proposed Discharge Date: 03/08/18 03/07/18 1106 <Electronically signed by Norman Leyva MD> Date Norman Leyva MD CC: Jarad Souza DO; MD Kathryn Galvan CNPN Observed: 02/28/2018 Status: COMPLETED Source: [place] 12:00 AM [facility] REPOSITORY Telephone ([facility]) NEIL MENDENHALL ([id number]) 1965 F Date Time Provider Department 02/28/18 FLO ARAGON [facility] During your visit today, we recorded the following information about you: Laura Balderasbik PSR 02/28/2018 3:18 PM Signed Geri from [facility] Rehab unit states that patent would like to take a shower. Patient has amputation below the knee and know she is not able to get the site wet. Can it be covered so that it does not get wet? Call Geri @ [phone] - ok to leave a message. Shanita Garcia RN 03/01/2018 9:02 AM Signed Called Geri and advised her that Dr. Aragon ordered that Neil can shower and clean the stump with soap and water. She may not submerge the stump in a bathtub. Shanita Garcia RN Laura Monaco PSR 03/01/2018 9:03 AM Signed Geri from [facility] Rehab is aware of message below Allergies As of Date: 02/28/2018 Noted Allergy Reaction HORIZANT (GABAPENTIN ENACARBIL) 04/19/2014 1 - Mental Status Change WELLBUTRIN (BUPROPION HCL) 11/13/2011 14 - Other: See Comments Comments: Took med on Wednesday Woke up 3 days later in hospital Date Reviewed: 02/22/2018 Reviewed by: Mohamud (Rn) SARAH Mena - Fully Assessed Reason for Visit: PM Questionnaire Results [1186] Prescriptions as of 02/28/2018 Sig: ACETAMINOPHEN 325 MG TABLET Take 2 tablets by mouth every* OXYCODONE 5 MG TABLET Take 1 tablet by mouth every * SENNOSIDES 8.6 MG-DOCUSATE SO* Take 1 tablet by mouth twice * POLYETHYLENE GLYCOL 3350 17 G* Take 1 Packet by mouth once d* APIXABAN 5 MG TABLET Take 2 tablets by mouth twice* APIXABAN 5 MG TABLET Take 1 tablet by mouth twice * PRAVASTATIN 80 MG TABLET Take 80 mg by mouth once shahram* DOCUSATE SODIUM 100 MG CAPSULE Take 1 capsule by mouth twice* NIFEDIPINE ER 30 MG TABLET,EX* Take 1 tablet by mouth once d* CHOLECALCIFEROL (VITAMIN D3) * Take 5,000 Units by mouth onc* ASPIRIN 81 MG CHEWABLE TABLET Take 1 tablet by mouth once d* LAMOTRIGINE 200 MG TABLET Take 200 mg by mouth once chaitanya* * ABILIFY 20 MG TABLET Take one(1) tablet daily. Problem List As Of Date 02/28/2018 Noted Resolved Bipolar affective [F31.9] INVALID FOR* Carotid artery disease [I77.9] INVALID FOR* PVD (peripheral vascular disease) (HCC) [I73.9] INVALID FOR* Priority: A More... Postoperative pain [G89.18] INVALID FOR* Priority: D More... Dehydration [E86.0] INVALID FOR*04/22/2014 Priority: F More... Arterial occlusion, lower extremity (HCC) [I70.*INVALID FOR* Priority: A More... Bipolar disorder (HCC) [F31.9] INVALID FOR* Priority: C More... Hyperlipidemia [E78.5] INVALID FOR* Priority: C More... Neuropathic pain [M79.2] INVALID FOR* Priority: D More... AISSATOU (obstructive sleep apnea) [G47.33] INVALID FOR* Priority: D More... Smoker [F17.200] INVALID FOR* Priority: E More... Thrombus [I82.90] INVALID FOR* Critical lower limb ischemia [I99.8] INVALID FOR*11/15/2017 Priority: A S/P BKA (below knee amputation) unilateral, lef*INVALID FOR* HTN (hypertension) [I10] INVALID FOR* Priority: B More... Lupus anticoagulant with hypercoagulable state *INVALID FOR* Priority: D More... Encounter Status:Closed by SHANITA GARCIA RN on 03/01/18 HISTORY AND PHYSICAL Observed: 02/23/2018 Status: F Source: [place] EXAM 12:44 PM [facility] REPOSITORY [facility] Medical Records Department [address] [place] [address] History and Physical 02/23/18 1211 MR#: [id number] Acct: [id number] Name: NEIL MENDENHALL Rep #: [id number] : 1965 52 From: Norman Leyva MD PCP: Kathryn Galvan MD Status: ADM IN Location: [place] [address] History of Present Illness Date of Admission: 02/23/18 Chief Complaint: Debility The patient is a 52 year old F admitted to the rehab unit status post left below the knee amputation performed 02/18/18 at [facility]. Goal of rehab is methodist of prior level of functional independence. Her surgeon at [facility] was Dr. Aragon. Her postoperative course was unremarkable. She says that her peripheral vascular disease is on the basis of hypercoagulable state due to lupus anticoagulant as well as smoking. She quit smoking about 3 months ago. She lives alone in her own home with 3 steps up to the main floor but she will need to negotiate 13 stairs on a regular basis. She says her pain currently is not well controlled, she has used Lyrica in the past and tolerated it. She did not tolerate gabapentin in the past. She says at [facility] she was given OxyContin 10 mg every 4 hours alternating with Tylenol which helped her pain she is willing to reinitiate Lyrica as well. Complaints. Past Medical History Allergies bupropion HCl [From Wellbutrin] Allergy (Verified 04/19/14 06:26) Other gabapentin enacarbil [From Horizant] Allergy (Verified 04/19/14 06:26) Other Home Medications: Ambulatory Orders Medication Instructions Recorded Aripiprazole [Abilify] 20 mg PO DAILY 04/19/14 Cholecalciferol (Vitamin D3) 5,000 unit PO DAILY 04/19/14 [Vitamin D] Lamotrigine [Lamictal] 200 mg PO DAILY 04/19/14 Smoking Status: Former smoker Tobacco Use: Non-smoker Alcohol: None Drugs: None Review of Systems Constitutional: Denies: Chills, Fever, Weight Change HEENT: Denies: Head Aches, Sinus Congestion, Sinus Drainage Cardiovascular: Denies: Chest Pain, Palpitations Respiratory: Denies: Cough, Shortness of breath at rest, Sputum production Gastrointestinal: Denies: Abdominal Pain, Nausea, Vomiting Genitourinary: Denies: Dysuria Musculoskeletal: Denies: Joint Pain, Joint Tenderness Skin: Denies: Rash, Wounds Neurological: Denies: Numbness, Tingling, Focal weakness Psychiatric: Denies: Anxiety, Depression, Homicidal Ideations, Suicidal Ideations Hematologic/ Lymphatic: Denies: Easy Bruising, Easy Bleeding VTE Information - Inpt Only VTE Present on Admission: Yes VTE Pharm Prophylaxis ordered?: Yes - Physical Exam General: Alert, Oriented x3, Cooperative HEENT: Atraumatic, PERRLA, EOMI, Normocephalic Lungs: Clear to auscultation Cardiovascular: Regular rate Abdomen: Bowel Sounds Present Extremities: No edema, Capillary Refill Less than 3 Seconds Skin: No rashes, No breakdown Neurological: Cranial nerves II-XII grossly intact Psych/Mental Status: Normal Affect, Appropriate Vital Signs Temp Pulse Resp BP Pulse Ox 37.1 C 80 17 142/82 H 99 02/23/18 08:13 02/23/18 08:13 02/23/18 08:13 02/23/18 08:13 02/23/18 08:13 Oxygen Delivery Method Room Air Weight: 79.7 kg Body Mass Index (BMI) 28.5 Intake and Output for Last 24 Hours Intake Total 320 / 320 Balance 320 / 320 Laboratory Tests Past 24 Hrs WBC 8.3 RBC 3.62 L Hgb 9.9 L Hct 31.6 L Current Medications Acetaminophen 650 mg 02/22/18 15:47 02/23/18 08:13 Tylenol PO 650 mg Apixaban 5 mg 02/22/18 22:00 02/23/18 08:13 Assessment/Plan Debility status post left [id number] amputation. Goal of rehab is methodist of functional independence prior. Currently wheelchair transfers. Plan: Physical therapy for transfers Occupational Therapy's for ADLs Bowel protocol As needed analgesics Anticoagulation/DVT prophylaxis: Eliquis, history of lupus anticoagulant 02/23/18 1244 <Electronically signed by Norman Leyva MD> Date Norman Leyva MD Cosigner Signature: Date (if applicable) CC: MD Kathryn Galvan; Norman Leyva MD Signed CBC-COMPLETE BLOOD CNT Collected: 02/23/2018 Status: F Source: [place] NO DIFF 5:05 AM [facility] REPOSITORY TYPE CODE TESTS RESULT OUT OF RANGE REFERENCE UNITS LAB L100.1000 4.4-11.0 K/mm3 Normal WBC 8.3 LAB L100.1200 4.2-5.4 M/mm3 Low RBC 3.62 LAB L100.1300 12.0-15.0 g/dl Low HGB 9.9 LAB L100.1400 37-47 % Low HCT 31.6 LAB L100.1500 81-99 fL Normal MCV 87.3 LAB L100.1600 27.0-32.0 pg Normal MCH 27.3 LAB L100.1700 32-36 g/gl Low MCHC 31.3 LAB L100.1810 11.6-14.6 % High RDW CV 14.8 LAB L100.1820 35.1-43.9 fl High RDW SD 47.4 LAB L100.1900 150-450 K/mm3 High PLT 480 LAB L100.2000 6.2-12.0 fl Normal MPV 9.1 Performed By: #### L100.0500 #### [facility] [address] [place], [address] BASIC METABOLIC Collected: 02/23/2018 Status: F Source: [place] PROFILE (BMP) 5:05 AM [facility] REPOSIT[facility] TYPE CODE TESTS RESULT OUT OF RANGE REFERENCE UNITS LAB L501.0100 74-106 mg/dL Normal GLU 97 Result Comment: Please note revised GLUCOSE reference range effective 2017. LAB L501.1000 7-18 mg/dL Normal BUN 11 LAB L501.1100 0.55-1.02 mg/dL Normal CREAT,SERUM 0.60 Result Comment: The validity of the calculated GFR AND GFRAA in patients over 70 years has not been determined. Clinical correlation is essential. LAB L501.1110 >60 mL/min Normal EST GFR 110 Result Comment: Non- GFR Calc LAB L501.1115 >60 mL/min Normal EST GFR - AA 133 Result Comment: GFR Calc LAB L501.1255 ml/min Normal Estimated CRCL 102.68 LAB L501.1300 10-20 RATIO BUN/CRE Normal 18.2 LAB L501.2200 8.5-10 mg/dL .1 CA Normal 8.5 LAB L501.5300 136-14 mmol/L 5 NA Normal 142 LAB L501.5600 3.5-5. mmol/L 1 K Normal 3.8 LAB L501.5900 98-107 mmol/L High CL 109 LAB L501.6100 21.0-3 mmol/L 2.0 CO2 Normal 24.0 LAB L501.6200 5-15 GAP Normal 9 Performed By: #### L500.2500 #### [facility] [address] [place], [address] THERAPY NT Observed: 02/22/2018 Status: COMPLETED Source: [place] 12:44 PM CLINIC OTHER CAMPUS REPOSITORY HNO ID: [id number] Author: El JeffriesPtMahsa Moreno Service: Physical Therapy Author Type: Physical Therapist Type: Therapy (PT/OT/Speech/Resp) Filed: 02/22/2018 1:38 PM Note Text: Physical Therapy Treatment SERVICE DATE: 02/22/2018 SERVICE TIME: 939 to 1032 ROOM: [place] [address] Recommended Discharge Disposition: Acute Rehab Justification For Post Acute Needs: Anticipate patient will tolerate 3 hours of daily therapy at the time of admission to post-acute setting;Anticipated community discharge;Cognition intact;Good family support;Good premorbid functional status;Living the community premorbidly;Medically complex;Motivated;Willing to participate Anticipated Discharge Needs: Physical Assist at Home Physical Assist at Home for: Cleaning;Laundry;Meals;Stairs;Self Care;Shopping;Transportation Recommended Discharge Equipment: To Be Determined PT Recommendations to Nursing: With assist of 1 person;In halls;To bathroom;Ambulate with device Device: Wheeled Walker PT 6 Clicks Score: 19 Precautions/Activity Restrictions: Fall Risk;Weight Bearing Restrictions;Lines/Tubes/Drains;Bed/Chair Alarm Precaution/Activity Restriction Comments: PT ordered for once a day ambulation, L BKA Extremity With Weight Bearing Restricted: Left Lower Extremity Left Lower Extremity Weight Bearing Status: NWB ASSESSMENT : Patient Disposition at Start of Session: Supine in Bed Patient Disposition at End of Session: Supine in Bed;Call De Guzman in Reach Tolerance Limited By Fatigue Physical Therapy Problem List: Education Deficit;Pain;Edema;Impaired Self Care;Decreased Range Of Motion;Decreased Strength;Functional Mobility Impairment;Balance Impaired Patient /Caregiver Goals: Go To Rehab Goals for Plan of Care: Able to perform HEP with: Independent Rolling with: Modified Independent Transfer supine to/from sit with: Modified Independent Transfer sit to/from stand with: Stand By Assistance Ambulate with: Contact Guard Assistance Distance: 25 Device: Wheeled Walker Ambulate up and down curb step with: Moderate Assistance Device: Wheeled Walker Ambulate up and down steps with: Moderate Assistance Number of steps: 4 Device: Crutch(es);Rail Transfer: Pt able to perform bed to chair pivot transfer with min A Propel wheelchair with: Modified Independent Distance: 150 Progress Toward Goals: Progressing as expected Rehab Potential: Excellent PLAN: Treatment Frequency (times per week): 2;3 Current admission Treatment Interventions: Education;Strengthening;Functional Mobility Training;Balance Training;Energy Conservation Training;Joint Mobility Plan of Care developed with: Patient TREATMENT INTERVENTIONS: Therapy Diagnosis: Muscle Weakness (generalized);Unsteadiness on feet;Reduced mobility-other Interventions Provided: Gait Training (92182);Wheelchair Management (22401);Therapeutic Activity (91108) Therapeutic Activity (13121) Treatment Minutes: 15 1 unit Skilled Intervention(s): Pt performed bed mobility transfer for functional mobility training and strengthening. Pt performed with SBA but was given cues for safety to protect L stump. Instructed pt on and performed bed to chair pivot transfers, cued pt for positioning, and sequencing when performing transfer. Pt educated and showed how to set up chair prior to performing transfer. Pt performed transfer for functional mobility training and strengthening. Reviewed seated and supine therapeutic exercises and encouraged pt to perform as tolerated during her hospital stay Gait Training (13581) Treatment Minutes: 23 2 units Skilled Intervention(s): Instruction in sit to stand technique with proper hand placement and body positioning at edge of bed/chair, Instruction in stand to sit technique with LE's touching chair/bed and reaching back for surface, Instruction in sequencing, gait pattern, Instruction in correction of gait deviations, Instruction in stair negotiation, Instruction in use of equipment, cues for sequence and pattern and pt performed 2 small bouts of ambulation, cued pt for positioning inside ww and pace. Pt given cues for safety during mobility. Pt performed stairs for mobility training, instructing pt on crutch and rail use. Pt only able to perform 3 steps until fatigue. Instructed pt on and demonstrated stand to sit on step transfer and performing stairs on buttock Wheelchair Management (22209) Treatment Minutes: 15 1 unit Skilled Intervention(s): Education and instruction provided in proper technique for wheelchair propulsion and maneuverability. Management of wheelchair components education and instruction provided. Wheelchair safety education provided. pt performed to bouts of w/c propulsion, requiring cues for parts and maneuvering around objects Total Timed Code Treatment Minutes: 53 Total Treatment Time (minutes): 53 FUNCTIONAL G CODE: PT 6 Clicks Score: 19 (02/22/18 9596) Mobility: Walking and Moving Around Current Status (G8978): CK (02/20/18 1135) Mobility: Walking and Moving Around Goal Status (G8979): CK (02/20/18 1135) Based on clinical assessment and the score on the 6 Clicks Functional Assessment Tool, the G code and corresponding severity modifiers are documented above. SUBJECTIVE: Current Hospital Course: Chart reviewed and no significant medical updates relevant to therapy were noted Reason for Physical Therapy Consult : PAD, L 2nd toe gangrene, s/p BKA Relevant Past Medical History: PVD, CAD, HLD, bipolar, thrombus, refer to chart for full pmh Patient Report: Pt agreeable to participate in therapy session Home Environment Patient Lives With: Self/Alone Assistance Available: multimedia producer;Other: See Comment (friends and family in area) Entry To Home: Stairs;Without Rail Number Of Stairs Into Home: 3 Number Of Stairs To Bed/Bath: 2nd floor bed and bath with 12-15 steps up and rail for support. Stairs to Bed/Bath with: Unilateral Rail Equipment Owned: Cane;Wheeled Walker;Grab Bars-Shower;Shower Chair Prior Functional Level: Within Functional Limits;Other: See Comment (ambulates with cane, ind with ADL's, IADL's, drives) OBJECTIVE: CURRENT FUNCTIONAL STATUS: Current Functional Mobility Assist Level Additional Information Rolling Stand By Assistance Supine to Sit Stand By Assistance (HOB elevated) Sit to Supine Scooting Stand By Assistance Sit to Stand Contact Guard Assistance Stand to Sit Contact Guard Assistance Bed to Chair Contact Guard Assistance Bed To Chair Transfer Type: Stand Pivot Toilet/Commode Gait Minimal Assistance Gait Device: Wheeled Walker Gait Distance (feet): 12' and 10' with seated rest breaks between bouts. Stairs Moderate Assistance Stairs Device: Rail;Crutch(es) Number of Stairs: 3 Curb Step Car Transfer General Gait Deviations: Thao decreased;Step length decreased;Flexed trunk posture;Other: See comment (cued for positioning inside ww, fatigued quickly) Wheelchair Mobility: Manual Wheelchair Propulsion Manual Wheelchair Propulsion: Stand By Assistance Distance Wheelchair Propelled (feet): 100'x2 with rest break between bouts (verbal cues given for turning) Balance: Static Sitting;Static Standing;Dynamic Standing Static Sitting Balance: Stand By Assistance Static Standing Balance: Contact Guard Assistance Dynamic Standing Balance: Minimal Assistance Please see discipline specific clinical documentation flowsheet for complete details for this therapy evaluation/treatment. SIGNATURE: El Moreno PT PATIENT NAME: Neil Mendenhall DATE: February 22, 2018 TIME: 1:30 PM CASE MANAGEM Observed: 02/22/2018 Status: COMPLETED Source: [place] 11:14 AM [facility] REPOSITORY HNO ID: [id number] Author: Laney JeffriesRn) Khalida, RN Service: Care Management Author Type: Registered Nurse Type: Care Mgt Progress Note Filed: 02/22/2018 11:17 AM Note Text: CARE MANAGEMENT DISCHARGE NOTE SERVICE DATE: 02/22/2018 SERVICE TIME: 1115 LOS: 4 days Admission Date: 02/18/2018 DISCHARGE ARRANGEMENT (list agency and phone number) Acute rehab Provider: Jamison Garrett [facility] CAREGIVER ASSESSMENT: Caregiver is ready, willing and able to meet the patient's needs as recommended by the inter-professional team? pt is going to [facility] Patient's transition needs and plan for meeting these needs: [facility] Does the patient have an acute stroke diagnosis, or has the patient had a stroke during this admission? No HANDOFF COMMUNICATION: Primary Care Physician: Dr Dheeraj Trujillo Phone Number: on file TRANSPORTATION ARRANGEMENTS: [facility] CM met with the pt. Pt is in agreement with the plan . Pt's family will be transporting the pt to the facility. Referral to [facility] updated. Nursing to call report to [phone]. DC packet in place. SIGNATURE: Laney Gaxiola, RN PATIENT NAME: Neil Mendenhall DATE: February 22, 2018 TIME: 11:14 AM PAGER/CONTACT #:[phone] CNDS Observed: 02/22/2018 Status: COMPLETED Source: [place] 11:01 AM [facility] REPOSITORY HNO ID: [id number] Author: Vivian Lea (Pa) Service: Vascular Surgery Author Type: Physician Swimmer Type: Discharge Summaries Filed: 02/22/2018 11:08 AM Note Text: Attestation signed by Flo Aragon at 02/22/2018 9:17 PM [facility] STAFF PHYSICIAN NOTE OF PERSONAL INVOLVEMENT IN CARE I have reviewed the discharge summary obtained and documented by the physician resident programs assistant and I personally participated in the mcadams components. I have discussed the case and management of the patient's care. The following comments revise or confirm relevant mcadams components of their note. Agree with above Flo Aragon MD Staff, Vascular Surgery February 22, 2018 9:17 PM Department of Vascular Surgery Discharge Summary Patient Name: Neil Mendenhall Patient Admission Date: 02/18/2018 Discharge Date: 02/22/2018 Attending Physician: Flo Aragon Primary Service: Vascular Surgery Admission Diagnosis: Peripheral Vascular Disease Discharge Diagnosis: Peripheral Vascular Disease Reason for Hospitalization: 52 year old female with ischemic rest pain and digit 3 tissue loss, hypercoagulable state w lupus, multiple failed bypass and stents with nonreconstructable vascular disease of the left?lower extremity and presents for below knee amputation. Operations during Hospitalization: 02/18/2018 left lower extremity below knee amputation Hospital Course * How was the Reason for Hospitalization Addressed: operation listed above * What were the Active Issues: Patient with hypercoagulable state -started on heparin gtt post-op, then transitioned back to Eliquis * Hospital Course Complicated by: NA * Extended Hospital Stay Due to: NA * Specific Medication Changes: Eliquis resumed with load, no need for Plavix * ID/Microbiology: Ancef 72 hr post-op * Pain: scheduled Tylenol with Oxycodone prn with bowel regimen * Surgical Incisions/Wounds: LLE BK stump incision; clean, dry and intact, sam intact * Pulses: 2+ R DP pulse * PT/OT: Acute Rehab * Patient Condition at Discharge: Stable * Disposition: [facility] Rehab Problem List: Patient Active Hospital Problem List: PVD (peripheral vascular disease) ([facility]) (09/23/2011) HTN (hypertension) (02/21/2018) Bipolar disorder ([facility]) (04/21/2014) Hyperlipidemia (04/21/2014) Lupus anticoagulant with hypercoagulable state ([facility]) (02/21/2018) Consults: Pain Management Procedures Performed and Major Radiology: 02/18/2018 Left Popliteal Nerve Block EKG Information Provided to the Patient: Patient given copy of After Visit Summary which included activity instructions, diet instructions, wound care instructions, medication instructions and follow up appointment Discharge Medications: Current Discharge Medication List START taking these medications oxyCODONE IR (ROXICODONE) 5 mg Take 5 mg by mouth every 6 hours as needed for Pain. Earliest Fill Date: 02/22/18 Associated Diagnoses:S/P vascular surgery senna-docusate (SENNA-S) 1 tablet Take 1 tablet by mouth twice daily. polyethylene glycol 3350 (MIRALAX, GLYCOLAX) 17 g Take 17 g by mouth once daily as needed (constipation). CONTINUE these medications which have CHANGED acetaminophen (TYLENOL) 650 mg Take 650 mg by mouth every 6 hours. !! apixaban (ELIQUIS) 10 mg Take 10 mg by mouth twice daily. last dose 02/28/2018 at 9 am Qty: 24 tablet Refills: 0 !! apixaban (ELIQUIS) 5 mg Take 5 mg by mouth twice daily. starting 02/28/2018 at 9 pm !! - Potential duplicate medications found. Please discuss with provider. CONTINUE these medications which have NOT CHANGED pravastatin (PRAVACHOL) 80 mg Take 80 mg by mouth once daily. NIFEdipine ER (PROCARDIA XL) 30 mg Take 30 mg by mouth once daily. Qty: 30 tablet Refills: 3 aspirin 81 mg Take 81 mg by mouth once daily. Refills: 0 lamoTRIgine (LaMICtal) 200 mg Take 200 mg by mouth once daily. aripiprazole(ABILIFY 20 MG TAB) Take one(1) tablet daily. Refills: 0 docusate sodium (COLACE) 100 mg Take 100 mg by mouth twice daily. Qty: 60 capsule Refills: 2 Cholecalciferol (Vitamin D3) 5,000 Units Take 5,000 Units by mouth once daily. STOP taking these medications oxyCODONE-acetaminophen (PERCOCET) 1 tablet Comments: Reason for Stopping: Outpatient Management: * Are there important medication changes and/or outstanding issues that need to be addressed: None * What is the plan for follow up: F/U Dr. Aragon in 4 weeks Future Appointments: Future Appointments Date Time Provider Department Center 03/22/2018 1:00 PM [id number] Electronically SIGNED by Licensed Independent Practitioner: Vivian Lea PA-C PROGRESS Observed: 02/22/2018 Status: COMPLETED Source: [place] 10:56 AM CLINIC OTHER CAMPUS REPOSITORY O ID: [id number] Author: Vivian Lea (Pa) Service: Vascular Surgery Author Type: Physician Swimmer Type: Progress Notes Filed: 02/22/2018 11:01 AM Note Text: [facility]ULAR [facility] POSTOP PROGRESS NOTE Service Date: 02/22/2018Admit Date: 02/18/2018Service Time: 1045 LOS: 4 day(s) Primary Service: Vascular Surgery Vascular Physician: Ranjith Jones Events/Issues: No events. Patient tolerating diet, urinating without difficulty and pain controlled. No CP/SOB. + BM Subjective Current hospital medications: 0.9% NaCl 2-10 mL 2-10 mL INTRAVENOUS q 12 H oxyCODONE IR 5-10 mg tab(s) (ROXICODONE) 5-10 mg ORAL q 4 H PRN polyethylene glycol 3350 17 g packet (MIRALAX, GLYCOLAX) 17 g ORAL DAILY PRN aspirin 81 mg chewable tab(s) 81 mg ORAL DAILY apixaban 10 mg tab(s) (ELIQUIS) 10 mg ORAL BID [START ON 02/28/2018] apixaban 5 mg tab(s) (ELIQUIS) 5 mg ORAL BID ondansetron (PF) 4 mg injection (ZOFRAN) 4 mg INTRAVENOUS q 6 H PRN senna-docusate 8.6-50 mg 1 tablet (SENNA-S) 1 tablet ORAL BID bisacodyl 10 mg suppository (DULCOLAX) 10 mg RECTAL DAILY PRN scopolamine 1 mg over 3 days 1 Patch (TRANSDERM-SCOP) 1 Patch TRANSDERMAL q 72 HR [START ON 02/23/2018] scopolamine - REMOVE PATCH OTHER q 72 HR scopolamine - VERIFY patch OTHER q 8 H acetaminophen 650 mg tab(s) (TYLENOL) 650 mg ORAL q 6 H calcium carbonate 500 mg chewable tab(s) (TUMS) 500 mg ORAL BID acetaminophen 650 mg tab(s) (TYLENOL) 650 mg ORAL q 4 H PRN lamoTRIgine 200 mg tab(s) (LaMICtal) 200 mg ORAL DAILY atorvastatin 80 mg tab(s) (LIPITOR) 80 mg ORAL DAILY ARIPiprazole 20 mg tab(s) (ABILIFY) 20 mg ORAL DAILY NIFEdipine XL 30 mg tab(s) (ADALAT CC) 30 mg ORAL DAILY docusate sodium 100 mg cap(s) (COLACE) 100 mg ORAL BID lactated ringers 250-500 mL iv bolus 250-500 mL INTRAVENOUS PRN Medication and Non-Pharmacologic VTE Prophylaxis/Anticoagulants Anticoagulant AND Antiplatelet Medications Start Dose Route Frequency Ordered Stop 02/28/18 2100 apixaban 5 mg tab(s) (ELIQUIS) (apixaban (ELIQUIS) DVT/PE INITIATION of treatment therapy - Initial 10 mg twice daily for 7 days followed by 5 mg twice daily) 5 mg ORAL 2 TIMES DAILY 02/21/18 1322 -- 02/28/18 0000 apixaban (ELIQUIS) 5 mg tab(s) 5 mg ORAL 2 TIMES DAILY 02/22/18 1013 -- 02/22/18 0000 apixaban (ELIQUIS) 5 mg tab(s) 10 mg ORAL 2 TIMES DAILY 02/22/18 1013 02/28/18 2359 02/21/18 2100 apixaban 10 mg tab(s) (ELIQUIS) (apixaban (ELIQUIS) DVT/PE INITIATION of treatment therapy - Initial 10 mg twice daily for 7 days followed by 5 mg twice daily) 10 mg ORAL 2 TIMES DAILY 02/21/18 1322 02/28/18 2059 02/21/18 1330 aspirin 81 mg chewable tab(s) 81 mg ORAL DAILY 02/21/18 1317 -- 02/20/18 1645 activity - mobilize patient (wa,dc) 02/18/18 2315 pneumatic compression stockings ([place]) VTE Prophylaxis: not indicated due to therapeutic AC ALLERGIES Allergen Reactions - Horizant [Gabapenti* Mental Status Change - Wellbutrin [Bupropi* Other: See Comments Took med on Wednesday Woke up 3 days later in hospital Objective PHYSICAL EXAM: Patient Vitals for the past 24 hrs: BP Temp Temp src Pulse Resp SpO2 Weight 02/22/18 0740 156/80 36.6 ?C (97.9 ?F) Oral 80 18 98 % - 02/22/18 0525 - - - - - - 81.8 kg (180 lb 5.4 oz) 02/22/18 0337 153/76 36.9 ?C (98.4 ?F) Oral 80 18 98 % - 02/21/18 1927 122/62 36.9 ?C (98.5 ?F) Oral 87 18 97 % - 02/21/18 1127 140/78 36.9 ?C (98.4 ?F) Oral 86 18 98 % - Intake/Output Summary (Last 24 hours) at 02/22/18 1056 Last data filed at 02/22/18 0645 Gross per 24 hour Intake 1544 ml Output 1001 ml Net 543 ml CONSTITUTIONAL: Well developed and No distress NEUROLOGIC/PSYCHIATRIC: Oriented to time, place AND person and Alert LUNGS: Clear HEART: Regular rate AND rhythm ABDOMEN: Soft and Bowel sounds present INTEGUMENTARY: Wound - No SURGICAL SITES: Lower extremity - LLE BK stump incision; clean, dry and intact, sam intact MUSCULOSKELETAL: L BKA Pulses/Signals: 2+ R DP pulse DATA: Laboratory: Recent Labs 02/22/1843402/21/1842202/20/18 0316 WBC 7.05 10.13 9.85 HB 10.1* 11.5 12.9 HCT 31.4* 35.1* 39.2 PLT 467* 502* 532* Recent Labs 02/22/1843402/21/18 0423 02/20/18 0316 02/20/18 0315 NA -- 137 139 -- K -- 4.0 3.7 -- BUN -- 12 11 -- CREAT -- 0.70 0.69* -- GLUC -- 103* 147* -- MG 2.2 2.1 -- 2.1 Recent Labs 02/22/1843402/21/18 0719 02/21/18 0047 APTT 26.9 65.8* 56.2* Assessment/Plan Impression: Neil Mendenhall is a 52 year old White female who is POD# 4 left?lower extremity below knee amputation Plan: Continue ASA/ Eliquis, no need for Plavix per Dr. Aragon Searchlight Operator to L BKA Continue colace, senna, Miralax prn for constipation OOB, PT/OT No weight bearing left stump, weight bearing as tolerated right leg manager licensing for dc planning -[facility] D/C to [place] F/U Dr. Aragon in 4 weeks Problem Pvd (Peripheral Vascular Disease) (Hcc) History: 52 year old female with ischemic rest pain and digit 3 tissue loss, hypercoagulable state w lupus, multiple failed bypass and stents with 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 Home meds: ASA/ Plavix/Eliquis Plan: 02/18/2018 left lower extremity below knee amputation Left BK stump incision CDI, sam intact 2+ R DP pulse F/U Dr. Aragon in 4 weeka Htn (Hypertension) Home med: nifedipine Plan: Continue home med SBP 120-150s Bipolar disorder (HCC) Home meds: lamictal 200mg daily and abilify 20mg daily Plan: Continue home meds Hyperlipidemia Home med: Pravachol Plan: Continue home med Lupus Anticoagulant With Hypercoagulable State (Hcc) Home med: Eliquis Plan: Continue Eliquis SIGNATURE: Vivian Lea PA-C PATIENT NAME: Neil Mendenhall DATE: February 22, 2018 TIME: 10:45 AM PAGER/CONTACT #: [phone] ETX#[id number] PROGRESS Observed: 02/22/2018 Status: COMPLETED Source: [place] 10:35 AM CL[facility] OTHER CAMPUS REPOSITORY HNO ID: [id number] Author: Lemuel (Jamilah) Vacharathchristiana Service: Vascular Surgery Author Type: Resident Type: Progress Notes Filed: 02/22/2018 10:36 AM Note Text: Surgery Progress note Neil Mendenhall [id number] ASSESSMENT and PLAN: 52 year old female POD4 sp BKA of LLE, -overall doing well, expected post op course -Pain control: adequate on PO regimen -nail making machine tender in place -resumed home eliquis -dc to acute rehab today S: No acute overnight events. AVSS. Pain controlled, tolerating diet O: BP 156/80 Pulse 80 Temp 36.6 ?C (97.9 ?F) (Oral) Resp 18 Ht 167.6 cm (5' 6) Wt 81.8 kg (180 lb 5.4 oz) LMP 08/07/2011 SpO2 98% BMI 29.11 kg/m? 02/21 07 - 02/22 0659 In: 3351 [PO:990; IV:2361] Out: 1401 [Urine:1401] Gen: Alert, no NAD CV: RRR Resp: no respiratory distress/increased work of breathing Incision dci no hematoma LABS CBC, Coags, BMP, Mg, Phos Recent Labs 02/22/18 0435 02/21/18 0719 02/21/18 0423 02/21/18 0047 02/20/18 0316 02/20/18 0315 WBC 7.05 -- 10.13 -- -- 9.85 -- HB 10.1* -- 11.5 -- -- 12.9 -- HCT 31.4* -- 35.1* -- -- 39.2 -- PLT 467* -- 502* -- -- 532* -- APTT 26.9 65.8* -- 56.2* < > -- 31.0 NA -- -- 137 -- -- 139 -- K -- -- 4.0 -- -- 3.7 -- CHLOR -- -- 102 -- -- 99 -- CO2 -- -- 23 -- -- 23 -- BUN -- -- 12 -- -- 11 -- CREAT -- -- 0.70 -- -- 0.69* -- GLUC -- -- 103* -- -- 147* -- CA -- -- 8.8 -- -- 9.5 -- MG 2.2 -- 2.1 -- -- -- 2.1 P -- -- 3.8 -- -- -- 3.9 < > = values in this interval not displayed. Lemuel Murphy MD General Surgery PGY5 Pager: [phone] Surgery Red Team pager [phone] weekdays. Or [phone] weeknights (6pm - 6am) and weekends. NURSING PROG Observed: 02/22/2018 Status: COMPLETED Source: [place] 9:44 AM [facility] OTHER [place] REPOSITORY HNO ID: [id number] Author: Mohamud (Rn) SARAH Mena Service: (none) Author Type: Registered Nurse Type: Nursing Progress Note Filed: 02/22/2018 9:51 AM Note Text: Nursing Progress Note Patient Name: Neil Mendenhall Patient Location: / Daily Note:0800: Pt is resting in bed. AANDOx3. Pt states pain and given PRN pain meds for pain in left BKA. Searchlight Operator in place on left leg. No drainage. Pulses palpable. Pt ambulates to chair with 1 assist and walker. Tolerating diet well. Pt will be discharged to facility today. Safety maintained. Call light within reach and will continue to monitor. This note was completed by: Mohamud Mena RN CBC Collected: 02/22/2018 Status: F Source: [place] 4:35 AM [facility] OTHER [place] REPOSITORY TYPE CODE TESTS RESULT OUT OF REFERENCE UNITS RANGE LAB WBC 3.70-11.00 k/uL WBC 7.05 LAB RBC 3.90-5.20 m/uL Low RBC 3.66 LAB HGB 11.5-15.5 g/dL Low Hemoglobin 10.1 LAB HCT 36.0-46.0 % Low Hematocrit 31.4 LAB MCV 80.0-100.0 fL MCV 85.8 LAB MCH 26.0-34.0 pG MCH 27.6 LAB MCHC 30.5-36.0 g/dL MCHC 32.2 LAB RDWCV 11.5-15.0 % RDW-CV 14.8 LAB PLTCT 150-400 k/uL Platelet High Count 467 LAB MPV 9.0-12.7 fL MPV 9.5 Performed By: #### CBC, PTT #### [place] [id number] APTT Collected: 02/22/2018 Status: F Source: [place] 4:35 AM [facility] REPOSITORY TYPE CODE TESTS RESULT OUT OF RANGE REFERENCE UNITS LAB APTT 23.0-32.4 sec APTT 26.9 Result Comment: Unfractionated Heparin Therapeutic Ranges: Standard Heparin Nomogram: 53 to 78 seconds (anti-Xa level of 0.3 to 0.7 U/ml) Low Dose/ACS Nomogram: 49 to 67 seconds (anti-Xa level of 0.2 to 0.5 U/ml) Stroke Treatment Nomogram: 49 to 67 seconds (anti-Xa level of 0.2 to 0.5 U/ml) Note: The APTT therapeutic range has been determined for the current lot of laboratory APTT reagent in use throughout the [facility]. Performed By: #### CBC, PTT #### [place] [phone] MAGNESIUM Collected: 02/22/2018 Status: F Source: [place] 4:35 AM [facility] REPOSITORY TYPE CODE TESTS RESULT OUT OF REFERENCE UNITS RANGE LAB MG 1.7-2.6 mg/dL Magnesium 2.2 Performed By: #### MG1 #### [place] [phone] NURSING PROG Observed: 02/22/2018 Status: COMPLETED Source: [place] 3:09 AM [facility] REPOSITORY HNO ID: [id number] Author: Antonieta (Rn) SARAH Torres Service: (none) Author Type: Registered Nurse Type: Nursing Progress Note Filed: 02/22/2018 3:32 AM Note Text: Nursing Progress Note Patient Name: Neil Mendenhall Patient Location: [id number] Daily Note:02/21/18 2100 - pt AXO x3, resting in bed. Left BKA is clean, dry and intact w/ nail making machine tender in place and elevated on pillow. PAS on right leg. Heparin infusing per SEP, will d/c after tonight's Eliquis per MD note. Bed alarm on. Voices no further needs. 2355 - Pt up to BS with one assist and walker. Able to stand and pivot with little assist from RN. Medicated with scheduled Tylenol, rating left leg pain 3/10 at this time. Site remains clean, dry and intact. This note was completed by: Antonieta Torres RN CASE MANAGEM Observed: 02/21/2018 Status: COMPLETED Source: [place] 4:11 PM [facility] REPOSITORY HNO ID: [id number] Author: Herson Pierre Service: (none) Author Type: (none) Type: Care Mgt Progress Note Filed: 02/21/2018 4:13 PM Note Text: CARE MANAGEMENT DISCHARGE NOTE SERVICE DATE: 02/21/2018 SERVICE TIME: 4:11 PM LOS: 3 days IM letter given to patient on 02/21/2018 @ 1610. Pt presented w/ IM letter. Opportunity to read form. Signature obtained. Copy in chart w/ original to patient. SIGNATURE: Herson Pierre PATIENT NAME: Neil Mendenhall DATE: February 21, 2018 TIME: 4:11 PM PAGER/CONTACT #: [phone] NURSING PROG Observed: 02/21/2018 Status: COMPLETED Source: [place] 2:48 PM [facility] OTHER [place] REPOSITORY HNO ID: [id number] Author: Celena JeffriesRn) SARAH Stanford Service: (none) Author Type: Registered Nurse Type: Nursing Progress Note Filed: 02/21/2018 2:49 PM Note Text: Nursing Progress Note Patient Name: Neil Mendenhall Patient Location: 3A/ Daily Note: 1200: Patient had small BM at this time, also voiding s/p humphries removal. Searchlight Operator in place to MAIRA Fuentes. This note was completed by: Celena Stanford RN THERAPY NT Observed: 02/21/2018 Status: COMPLETED Source: [place] 2:45 PM [facility] OTHER CAMP[facility] REPOSITORY HNO ID: [id number] Author: Raven Valentin Service: Physical Therapy Author Type: Consulting Practice Director Type: Therapy (PT/OT/Speech/Resp) Filed: 02/21/2018 2:52 PM Note Text: Attestation signed by Gary JeffriesPt) Chaim at 02/21/2018 4:00 PM I reviewed and agree with the assessment as documented above. SIGNATURE: Gary Rucker, PT DATE: February 21, 2018 TIME: 4:00 PM Physical Therapy Treatment SERVICE DATE: 02/21/2018 SERVICE TIME: 1335 to 1430 ROOM: [place] [address] S/[address] Recommended Discharge Disposition: Acute Rehab Justification For Post Acute Needs: Anticipate patient will tolerate 3 hours of daily therapy at the time of admission to post-acute setting;Anticipated community discharge;Cognition intact;Good family support;Good premorbid functional status;Living the community premorbidly;Medically complex;Motivated;Willing to participate Anticipated Discharge Needs: Physical Assist at Home Physical Assist at Home for: Cleaning;Laundry;Meals;Stairs;Self Care;Shopping;Transportation Recommended Discharge Equipment: To Be Determined PT Recommendations to Nursing: With assist of 1 person;In halls;To bathroom;Ambulate with device Device: Wheeled Walker PT 6 Clicks Score: 18 Precautions/Activity Restrictions: Fall Risk;Weight Bearing Restrictions;Lines/Tubes/Drains;Bed/Chair Alarm Precaution/Activity Restriction Comments: PT ordered for once a day ambulation, L BKA Extremity With Weight Bearing Restricted: Left Lower Extremity Left Lower Extremity Weight Bearing Status: NWB ASSESSMENT : Pt reports feeling phantom pain distal stump. Pt motivated with therapy. Per CM pt has been accepted to [place] [facility] [place] [facility]( [facility]). Patient Disposition at Start of Session: Supine in Bed;Call De Guzman in Reach;Bed Alarm (friend visiting ) Patient Disposition at End of Session: OOB in Chair;Call De Guzman in Reach Tolerated Full Session Other: See Comment (nausea, RN notifies/aware, she was given nausea medication) Physical Therapy Problem List: Education Deficit;Pain;Edema;Impaired Self Care;Decreased Range Of Motion;Decreased Strength;Functional Mobility Impairment;Balance Impaired Patient /Caregiver Goals: Go To Rehab Goals for Plan of Care: Able to perform HEP with: Independent Rolling with: Modified Independent Transfer supine to/from sit with: Modified Independent Transfer sit to/from stand with: Contact Guard Assistance Ambulate with: Contact Guard Assistance Distance: 25 Device: Wheeled Walker Ambulate up and down curb step with: Moderate Assistance Device: Wheeled Walker Ambulate up and down steps with: Moderate Assistance Number of steps: 4 Device: Crutch(es);Rail Transfer: Pt able to perform bed to chair pivot transfer with min A Propel wheelchair with: Contact Guard Assistance Distance: 100 Progress Toward Goals: Progressing as expected Rehab Potential: Excellent PLAN: Treatment Frequency (times per week): 2;3 Current admission Treatment Interventions: Education;Strengthening;Functional Mobility Training;Balance Training;Energy Conservation Training;Joint Mobility Plan of Care developed with: Patient TREATMENT INTERVENTIONS: Therapy Diagnosis: Reduced mobility-other;Muscle Weakness (generalized);General symptoms and signs-other;Abnormalities of gait and mobility-other Interventions Provided: Therapeutic Exercise (91664);Therapeutic Activity (28058);Gait Training (50117) Therapeutic Exercise (14749) Treatment Minutes: 15 1 unit Skilled Intervention(s): Instruction in therapeutic exercise for B LE quad strengthening; L BK strengthening, ROM Verbal and tactile cuing provided for pace and performance Facilitation of muscle control, optimal recruitment and alignment for edema control, increased ROM increased strength Education in proper positioning and elevation, no pillow under knee. Therapeutic Activity (15647) Treatment Minutes: 25 2 units Skilled Intervention(s): Instructed patient in supine to sit pushing with upper extremities to sit up Instruction in sit to stand technique with proper hand placement and body positioning at edge of bed/chair Instruction in stand to sit technique with lower extremities touching chair/bed and reaching back for surface Education with amputee protocol, use of compression stocking, shaping stump for preparation of prosthesis, ROM Gait Training (94094) Treatment Minutes: 15 1 unit Skilled Intervention(s): Instruction in sit to stand technique with proper hand placement and body positioning at edge of bed/chair, Instruction in stand to sit technique with LE's touching chair/bed and reaching back for surface, Instruction in sequencing, gait pattern, Instruction in correction of gait deviations and Instruction in use of equipment, cues for sequence and pattern Total Timed Code Treatment Minutes: 55 Total Treatment Time (minutes): 55 FUNCTIONAL G CODE: PT 6 Clicks Score: 18 (02/21/18 1335) Mobility: Walking and Moving Around Current Status (G8978): CK (02/20/18 1135) Mobility: Walking and Moving Around Goal Status (G8979): CK (02/20/18 1135) Based on clinical assessment and the score on the 6 Clicks Functional Assessment Tool, the G code and corresponding severity modifiers are documented above. 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 Stairs to Bed/Bath with: Unilateral Rail Equipment Owned: Cane;Wheeled Walker;Grab Bars-Shower;Shower Chair Prior Functional Level: Within Functional Limits;Other: See Comment (ambulates with cane, ind with ADL's, IADL's, drives) OBJECTIVE: CURRENT FUNCTIONAL STATUS: Current Functional Mobility Assist Level Additional Information Rolling Stand By Assistance Supine to Sit Minimal Assistance Sit to Supine Scooting Stand By Assistance Sit to Stand Contact Guard Assistance Stand to Sit Contact Guard Assistance Bed to Chair Toilet/Commode Gait Minimal Assistance Gait Device: Wheeled Walker NWB L LE Gait Distance (feet): 7 ft Stairs Curb Step Car Transfer General Gait Deviations: Thao decreased;Step length decreased;Flexed trunk posture;Narrow Base of Support (cueing for relaxation of L LE; decrease hip flexion ) Balance: Static Sitting;Static Standing;Dynamic Standing Static Sitting Balance: Stand By Assistance Static Standing Balance: Minimal Assistance Dynamic Standing Balance: Minimal Assistance Please see discipline specific clinical documentation flowsheet for complete details for this therapy evaluation/treatment. SIGNATURE: Raven Valentin PTA PATIENT NAME: Neil Mendenhall DATE: February 21, 2018 TIME: 2:46 PM CASE MGT INIT Observed: 02/21/2018 Status: COMPLETED [facility] REPOSITORY HNO ID: [id number] Author: Herson Pierre Service: (none) Author Type: (none) Type: Care Mgt Initial Assessment Filed: 02/21/2018 3:06 PM Note Text: CARE MANAGEMENT: ASSESSMENT AND DISCHARGE PLAN SERVICE DATE: 02/21/2018 SERVICE TIME: 11:03 AM PRIMARY CARE PHYSICIAN: Dheeraj Trujillo MD ADMISSION STATUS: Inpatient Needs Prior to Discharge: Accepting Facility 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 No Advance Directive: Current Advance Directive: None Manager Strategic Assisted with AD Completion: (Forms provided.) Health Literacy: 1. How often do you need to have someone help you when you read instructions, pamphlets, or other written material from your doctor or pharmacy? Never - 1 2. How confident are you filling out medical forms by yourself? Extremely - 1 If Patient scores > 3 on either question, the following interventions were put into place: Patient did not score > 3 FUNCTIONAL AND COGNITIVE/BEHAVIORAL PRIOR TO ADMISSION: Baseline Mental Status: Alert AND Oriented, Person, Place , Time and Situation Functional Status: Independent Does Patient Currently Receive Any Community Services or Home Care? None Equipment Prior to Admission: None Has the Patient Been in a Group Home Facility in the Past 30 days? No SOCIAL: Living Arrangement: Home Lives With: Alone Financial Resources: Unemployed Primary Contact: Extended Emergency Contact Information Primary Emergency Contact: Mckinley Chacko Mobile Relation: Sister Secondary Emergency Contact: Kathryn Santiago Mobile Relation: Sister Supportive: Yes Other Important Patient Contacts: None Caregiver Assessment: Caregiver is ready, willing and able to meet the patient's needs as recommended by the inter-professional team? Yes Patient's transition needs and plan for meeting these needs: Acute Rehab Does the patient have an acute stroke diagnosis, or has the patient had a stroke during this admission? No Medication Adherence: I am convinced of the importance of my prescription medication: Agree mostly - 0 I worry that my prescription medication will do more harm than good to me Disagree mostly - 0 I feel financially burdened by my [id number] expenses for my prescription medication: Disagree mostly -0 Patient is categorized as low risk < 2 Are you interested in bedside delivery of your medications? No Food Concerns: In the Last Month, Have You had Trouble Getting Food? No trouble getting food During the Last Month, Have You Worried Whether Your Food Would Run Out Before You Had Enough Money to Buy More? No Is the Patient Psychosocially Complex? No ASSESSMENT AND PLAN: Medical Needs: 2 or more chronic diseases, Fall risk or frequent falls and S/P L BKA Psychosocial Needs: Mental Health Diagnosis: Depression, Bipolar FREEDOM OF CHOICE EXPLAINED: Yes Patient Provider List: Rehab Facility POTENTIAL TRANSITION PLANS Rehab Facility Pt assessed. Lives alone, independently in a two-level duplex. She states abundant sources of support from family and friends. She has a long history of venous issues. Presents with L BKA on 02/18. PT and OT suggest Acute Rehab. Pt presented w/ choices and prefers [facility]. Referral sent. She prefers family to transport to [place] facility. 1500--[facility] can accept patient anytime tomorrow but not today. Pt aware and agreeable. Reiterates desire to have family transport to facility. SIGNATURE: Herson Pierre PATIENT NAME: Neil Mendenhall DATE: February 21, 2018 TIME: 11:03 AM PAGER/CONTACT #: [phone] PROGRESS Observed: 02/21/2018 Status: COMPLETED Source: [place] 10:26 AM [facility] OTHER CAMPUS REPOSITORY HNO ID: [id number] Author: Vivian Lea (Pa) Service: Vascular Surgery Author Type: Physician Swimmer Type: Progress Notes Filed: 02/21/2018 1:25 PM Note Text: [facility] POSTOP PROGRESS NOTE Service Date: 02/21/2018Admit Date: 02/18/2018Service Time: 944 LOS: 3 day(s) Primary Service: Vascular Surgery Vascular Physician: Ranjith Jones Events/Issues: N/V yesterday, feeling better today, will try to eat. PT/OT recommend [facility]. No CP/SOB. + flatus, no BM. LYNNETTE output 30cc. Subjective Current hospital medications: oxyCODONE IR 5-10 mg tab(s) (ROXICODONE) 5-10 mg ORAL q 4 H PRN HYDROmorphone 0.25 mg injection (DILAUDID) 0.25 mg INTRAVENOUS q 6 H PRN ondansetron (PF) 4 mg injection (ZOFRAN) 4 mg INTRAVENOUS q 6 H PRN senna-docusate 8.6-50 mg 1 tablet (SENNA-S) 1 tablet ORAL BID bisacodyl 10 mg suppository (DULCOLAX) 10 mg RECTAL DAILY PRN scopolamine 1 mg over 3 days 1 Patch (TRANSDERM-SCOP) 1 Patch TRANSDERMAL q 72 HR [START ON 02/23/2018] scopolamine - REMOVE PATCH OTHER q 72 HR scopolamine - VERIFY patch OTHER q 8 H acetaminophen 650 mg tab(s) (TYLENOL) 650 mg ORAL q 6 H calcium carbonate 500 mg chewable tab(s) (TUMS) 500 mg ORAL BID ceFAZolin iv piggyback 1 g in D5W (iso-osmotic) 50 mL (ANCEF) 1 g INTRAVENOUS q 8 HR acetaminophen 650 mg tab(s) (TYLENOL) 650 mg ORAL q 4 H PRN lamoTRIgine 200 mg tab(s) (LaMICtal) 200 mg ORAL DAILY atorvastatin 80 mg tab(s) (LIPITOR) 80 mg ORAL DAILY ARIPiprazole 20 mg tab(s) (ABILIFY) 20 mg ORAL DAILY NIFEdipine XL 30 mg tab(s) (ADALAT CC) 30 mg ORAL DAILY docusate sodium 100 mg cap(s) (COLACE) 100 mg ORAL BID heparin iv infusion (LOW DOSE ACS/NOMOGRAM) 25,000 units in NaCl 0.45% 250 mL PREMIX 0-3,000 Units/hr INTRAVENOUS CONTINUOUS heparin RATE CHANGE bolus 1,000-4,000 Units for subtherapeutic aptt results 1,000-4,000 Units INTRAVENOUS PRN NaCl 0.9% iv infusion 5-30 mL/hr INTRAVENOUS CONTINUOUS lactated ringers 250-500 mL iv bolus 250-500 mL INTRAVENOUS PRN Medication and Non-Pharmacologic VTE Prophylaxis/Anticoagulants Anticoagulant AND Antiplatelet Medications Start Dose Route Frequency Ordered Stop 02/19/18 2100 heparin iv infusion (LOW DOSE ACS/NOMOGRAM) 25,000 units in NaCl 0.45% 250 mL PREMIX (Heparin Infusion + Rate Change Bolus) 0-30 mL/hr 0-3,000 Units/hr INTRAVENOUS CONTINUOUS 02/18/18 2302 -- 02/20/18 1645 activity - mobilize patient (wa,dc) 02/18/18 2315 pneumatic compression stockings ([place]) VTE Prophylaxis: not indicated due to therapeutic AC ALLERGIES Allergen Reactions - Horizant [Gabapenti* Mental Status Change - Wellbutrin [Bupropi* Other: See Comments Took med on Wednesday Woke up 3 days later in hospital Objective PHYSICAL EXAM: Patient Vitals for the past 24 hrs: BP Temp Temp src Pulse Resp SpO2 02/21/18 0528 153/79 37.2 ?C (99 ?F) Oral 82 16 95 % 02/20/182 158/81 37.6 ?C (99.7 ?F) Oral 92 16 97 % 02/20/18 1117 128/68 36.9 ?C (98.5 ?F) Axillary 86 16 94 % Intake/Output Summary (Last 24 hours) at 02/21/18 1027 Last data filed at 02/21/18 0823 Gross per 24 hour Intake 1457 ml Output 1555 ml Net -98 ml CONSTITUTIONAL: Well developed and No distress NEUROLOGIC/PSYCHIATRIC: Oriented to time, place AND person and Alert LUNGS: Clear HEART: Regular rate AND rhythm ABDOMEN: Soft and Bowel sounds present INTEGUMENTARY: Wound - No SURGICAL SITES: Lower extremity - LLE BK stump incision; clean, dry and intact, sam intact MUSCULOSKELETAL: L BKA Pulses/Signals: 2+ R DP pulse DATA: Laboratory: Recent Labs 02/21/18 0423 02/20/18 0316 02/19/18 0434 WBC 10.13 9.85 8.74 HB 11.5 12.9 11.6 HCT 35.1* 39.2 35.6* PLT 502* 532* 510* Recent Labs 02/21/18 0423 02/20/18 0316 02/20/18 0315 02/19/18 0434 NA 137 139 -- 140 K 4.0 3.7 -- 3.9 BUN 12 11 -- 10 CREAT 0.70 0.69* -- 0.71 GLUC 103* 147* -- 118* MG 2.1 -- 2.1 1.9 Recent Labs 02/21/18 0719 02/21/18 0047 02/20/18 1712 02/19/18 0025 APTT 65.8* 56.2* 45.0* < > 23.9 INR -- -- -- -- 1.0 < > = values in this interval not displayed. Assessment/Plan Impression: Neil Mendenhall is a 52 year old White female who is POD# 3 left lower extremity below knee amputation Plan: Resume ASA, no need for Plavix per Dr. 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 Aragon in 4 weeks Problem Pvd (Peripheral Vascular Disease) ([facility]) History: 52 year old female with ischemic rest pain and digit 3 tissue loss, hypercoagulable state w lupus, multiple failed bypass and stents with 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 Home meds: ASA/ Plavix/Eliquis Plan: 02/18/2018 left lower extremity below knee amputation Left BK stump incision CDI, sam intact 2+ R DP pulse F/U Dr. Aragon in 4 weeks Htn (Hypertension) Home med: nifedipine Plan: Continue home med Bipolar disorder (HCC) Home meds: lamictal 200mg daily and abilify 20mg daily Plan: Continue home meds. Hyperlipidemia Home med: Pravachol Plan: Continue home med. Lupus Anticoagulant With Hypercoagulable State (Hcc) Home med: Eliquis Plan: resume Eliquis POD 3 S/P Bka (Below Knee Amputation) Unilateral, Left (Hcc) SIGNATURE: Vivian Lea PA-C PATIENT NAME: Neil Mendenhall DATE: February 21, 2018 TIME: 09:45 AM PAGER/CONTACT #: [phone] ETX#[id number] PROGRESS Observed: 02/21/2018 Status: COMPLETED Source: [place] 8:26 AM [facility] OTHER CAMPUS REPOSITORY HNO ID: [id number] Author: Gregg Braun Service: Vascular Surgery Author Type: Resident Type: Progress Notes Filed: 02/21/2018 8:38 AM Note Text: SURGICAL PROGRESS NOTE PATIENT NAME: Neil Mendenhall INTERVAL HISTORY OF PRESENT ILLNESS: Had issues with emesis and pain over the weekend. Doing better today, pain is tolerable, had emesis last night but feeling better today. She is getting out of bed and sitting in chair. PHYSICAL EXAM: BP 153/79 Pulse 82 Temp 37.2 ?C (99 ?F) (Oral) Resp 16 Ht 167.6 cm (5' 6) Wt 84.4 kg (186 lb) LMP 08/07/2011 SpO2 95% BMI 30.02 kg/m? Body mass index is 30.02 kg/m?. GENERAL: Alert and oriented, no acute distress, cooperative. LUNGS: Non labored breathing ABDOMEN: soft, non tender, non distended. WOUND: Dressing taken down. Wound clean, dry and intact. No signs of infection or evidence of hematoma. Recent Labs 02/21/18 0719 02/21/18 0423 02/21/18 0047 02/20/18 1712 02/20/18 0316 02/20/18 0315 02/19/18 0434 02/19/18 0025 WBC -- 10.13 -- -- -- 9.85 -- 8.74 10.66 HB -- 11.5 -- -- -- 12.9 -- 11.6 12.0 HCT -- 35.1* -- -- -- 39.2 -- 35.6* 36.4 PLT -- 502* -- -- -- 532* -- 510* 492* INR -- -- -- -- -- -- -- -- 1.0 APTT 65.8* -- 56.2* 45.0* < > -- 31.0 -- 23.9 NA -- 137 -- -- -- 139 -- 140 -- K -- 4.0 -- -- -- 3.7 -- 3.9 -- CHLOR -- 102 -- -- -- 99 -- 104 -- CO2 -- 23 -- -- -- 23 -- 21* -- BUN -- 12 -- -- -- 11 -- 10 -- CREAT -- 0.70 -- -- -- 0.69* -- 0.71 -- GLUC -- 103* -- -- -- 147* -- 118* -- CA -- 8.8 -- -- -- 9.5 -- 8.9 -- MG -- 2.1 -- -- -- -- 2.1 1.9 -- P -- 3.8 -- -- -- -- 3.9 3.9 -- < > = values in this interval not displayed. Intake/Output Summary (Last 24 hours) at 02/21/18825 Last data filed at 02/21/18 08 Gross per 24 hour Intake 1457 ml Output 1455 ml Net 2 ml SURGERY/PROCEDURE: Procedure(s) and Anesthesia Type: * AMPUTATION BELOW KNEE EXTREMITY LOWER - General ASSESSMENT AND PLAN: Neil Mendenhall is a 52 year old female with history of PVD and chronic dry gangrene of Left toe POD3 of BKA of LLE, -Will consider removing LLE block today -Remove humphries catheter -Dressing changed today -Will discuss DC of heparin drip and restarting home eliquis -Possible removal of LYNNETTE drain and placement of nail making machine tender -Continue PT Gregg Braun MD Vascular Surgery, PGY-1 February 21, 2018 8:26 AM CONSULT PROG Observed: 02/21/2018 Status: COMPLETED Source: [place] 8:16 AM [facility] OTHER [facility]AMP[facility] REPOSITORY HNO ID: [id number] Author: Val Vann Service: Pain Management Author Type: Nurse Practitioner Type: Consult Progress Note Filed: 02/21/2018 10:19 AM Note Text: PERIPHERAL NERVE CATHETER PROGRESS NOTE PATIENT NAME: Neil Mendenhall SERVICE DATE: 02/21/2018 SERVICE TIME: 8:16 AM ASSESSMENT Neil Mendenhall is a 52 year old female who is POD# 3, S/P left?lower extremity below knee amputation with Left Popliteal Nerve Block placed to aid in post op pain control. Ms. Mendenhall is resting in bed, she reports well controlled incisional pain at this time. LLE PNC site without signs or symptoms of infection, no erythema, tenderness, drainage, or warmth. No oozing. She is able to move L stump with ease. She is tolerating orals, denies N/V. ? PLAN Patient reports pain well-controlled since PNC placed on hold this AM. Patient currently rating pain score mild-moderate with movement. LLE PNC removed by APMS, catheter tip intact. LLE PNC site without signs or symptoms of infection, no erythema, tenderness, drainage, or warmth. NO oozing from the site, no ecchymosis noted. Site is soft. Patient encouraged to utilize oral pain regimen to optimize pain control. The plan was discussed in detail with patient +/- family, bedside RN, APMS staff and primary service, who expressed agreement, understanding and comfort with the plan. APMS will sign off and defer further management to primary team. If pain worsens or difficulties arise please reconsult APMS. Thank you for including us in her care. ? SUBJECTIVE CHIEF COMPLAINT: left?lower extremity below knee amputation ? PRIMARY SERVICE: Vascular ? INTERVAL HPI: Neil Mendenhall is a 52 year old female who is POD 3, S/Pleft?lower extremity below knee amputation with left popliteal PNC for post-operative pain control infusing ropiv 0.2% @ 6 ml Q 30 min. . ? Pain level is 4 at rest 8 with ambulation on a scale of 0-10. Is the patient tolerating Physical Therapy?: No - not at this time Pain at surgical site? Yes, Character: throbbing Duration: consistent Radiation: No Relieved: mildly with PNC Is patient satisfied with pain control: yes Overnight Events: None Overnight Pain Interventions: No ? Allergy: ALLERGIES ALLERGIES Allergen Reactions - Horizant [Gabapenti* Mental Status Change - Wellbutrin [Bupropi* Other: See Comments ? ? Took med on Wednesday Woke up 3 days later in hospital ? MEDICATIONS: I have interrogated the PNC pump for the correct settings and solution: Yes. Solution Ropivacaine 0.2%, basal rate 6 ml/hr. Adjuvant Pain Medication: See below. Current hospital medications: oxyCODONE IR 5-10 mg tab(s) (ROXICODONE) 5-10 mg ORAL q 4 H PRN HYDROmorphone 0.25 mg injection (DILAUDID) 0.25 mg INTRAVENOUS q 6 H PRN ondansetron (PF) 4 mg injection (ZOFRAN) 4 mg INTRAVENOUS q 6 H PRN senna-docusate 8.6-50 mg 1 tablet (SENNA-S) 1 tablet ORAL BID bisacodyl 10 mg suppository (DULCOLAX) 10 mg RECTAL DAILY PRN scopolamine 1 mg over 3 days 1 Patch (TRANSDERM-SCOP) 1 Patch TRANSDERMAL q 72 HR [START ON 02/23/2018] scopolamine - REMOVE PATCH OTHER q 72 HR scopolamine - VERIFY patch OTHER q 8 H acetaminophen 650 mg tab(s) (TYLENOL) 650 mg ORAL q 6 H calcium carbonate 500 mg chewable tab(s) (TUMS) 500 mg ORAL BID ceFAZolin iv piggyback 1 g in D5W (iso-osmotic) 50 mL (ANCEF) 1 g INTRAVENOUS q 8 HR acetaminophen 650 mg tab(s) (TYLENOL) 650 mg ORAL q 4 H PRN lamoTRIgine 200 mg tab(s) (LaMICtal) 200 mg ORAL DAILY atorvastatin 80 mg tab(s) (LIPITOR) 80 mg ORAL DAILY ARIPiprazole 20 mg tab(s) (ABILIFY) 20 mg ORAL DAILY NIFEdipine XL 30 mg tab(s) (ADALAT CC) 30 mg ORAL DAILY docusate sodium 100 mg cap(s) (COLACE) 100 mg ORAL BID heparin iv infusion (LOW DOSE ACS/NOMOGRAM) 25,000 units in NaCl 0.45% 250 mL PREMIX 0-3,000 Units/hr INTRAVENOUS CONTINUOUS heparin RATE CHANGE bolus 1,000-4,000 Units for subtherapeutic aptt results 1,000-4,000 Units INTRAVENOUS PRN NaCl 0.9% iv infusion 5-30 mL/hr INTRAVENOUS CONTINUOUS lactated ringers 250-500 mL iv bolus 250-500 mL INTRAVENOUS PRN OBJECTIVE: PHYSICAL EXAM: BP 153/79 Pulse 82 Temp 37.2 ?C (99 ?F) (Oral) Resp 16 Ht 167.6 cm (5' 6) Wt 84.4 kg (186 lb) LMP 08/07/2011 SpO2 95% BMI 30.02 kg/m? Affect: AAOX3, pleasant General Impression: appears comfortable ? Catheter site is clean, non-tender and dressing intact. Sensory exam: Surgical limb: Left Lower Extremity: diminished at distribution of nerve block Other limb: intact Motor Exam: Surgical limb: Left Lower Extremity: diminished at distribution of nerve block Other limb: intact ? Respiratory Exam: Respirations: Breathing appears normal Thoracostomy tube?: No ? Gastrointestinal Exam: Bowel sounds: Yes NG?: No DATA: Lab Results Component Latest Ref Rng AND Units 02/21/2018 Glucose 65 - 100 mg/dL 103 (H) BUN 8 - 25 mg/dL 12 Creatinine 0.70 - 1.40 mg/dL 0.70 Sodium 132 - 148 mmol/L 137 Potassium 3.5 - 5.0 mmol/L 4.0 Chloride 98 - 110 mmol/L 102 CO2 23 - 32 mmol/L 23 Anion Gap 9 - 18 mmol/L 12 Calcium 8.5 - 10.5 mg/dL 8.8 eGFR- >60 >60 eGFR-All Other Races >60 . >60 Component Latest Ref Rng AND Units 02/21/2018 WBC 3.70 - 11.00 k/uL 10.13 RBC 3.90 - 5.20 m/uL 4.12 Hemoglobin 11.5 - 15.5 g/dL 11.5 Hematocrit 36.0 - 46.0 % 35.1 (L) MCV 80.0 - 100.0 fL 85.2 MCH 26.0 - 34.0 pG 27.9 MCHC 30.5 - 36.0 g/dL 32.8 RDW-CV 11.5 - 15.0 % 14.9 Platelet Count 150 - 400 k/uL 502 (H) MPV 9.0 - 12.7 fL 9.6 Neut% % 62.2 Abs Neut (ANC) 1.45 - 7.50 k/uL 6.30 Lymph% % 29.8 Abs Lymph 1.00 - 4.00 k/uL 3.02 [place]% % 7.2 Abs [place] <0.87 k/uL 0.73 Eosin% % 0.7 Abs Eosin <0.46 k/uL 0.07 Baso% % 0.1 Abs Baso <0.11 k/uL <0.03 Diff Type Auto Diff Discussed the patient?s progress and plan of care with Dr. Hawley. SIGNATURE: Val Vann APRN.CNP PATIENT NAME: Neil Mendenhall DATE: February 21, 2018 TIME: 8:16 AM PAGER/CONTACT #: [facility] [phone] APTT Collected: 02/21/2018 Status: F Source: [place] 7:19 AM [facility] OTHER [place] REPOSITORY TYPE CODE TESTS RESULT OUT OF RANGE REFERENCE UNITS LAB APTT 23.0-32.4 sec High APTT 65.8 Result Comment: Unfractionated Heparin Therapeutic Ranges: Standard Heparin Nomogram: 53 to 78 seconds (anti-Xa level of 0.3 to 0.7 U/ml) Low Dose/ACS Nomogram: 49 to 67 seconds (anti-Xa level of 0.2 to 0.5 U/ml) Stroke Treatment Nomogram: 49 to 67 seconds (anti-Xa level of 0.2 to 0.5 U/ml) Note: The APTT therapeutic range has been determined for the current lot of laboratory APTT reagent in use throughout the [facility]. Performed By: #### PTT #### [place] [address] CBC AND DIFFERENTIAL Collected: 02/21/2018 Status: F Source: [place] 4:23 AM [facility] OTHER CAMPUS REPOSITORY TYPE CODE TESTS RESULT OUT OF REFERENCE UNITS RANGE LAB WBC 3.70-11.00 k/uL WBC 10.13 LAB RBC 3.90-5.20 m/uL RBC 4.12 LAB HGB 11.5-15.5 g/dL Hemoglobin 11.5 LAB HCT 36.0-46.0 % Low Hematocrit 35.1 LAB MCV 80.0-100.0 fL MCV 85.2 LAB MCH 26.0-34.0 pG MCH 27.9 LAB MCHC 30.5-36.0 g/dL MCHC 32.8 LAB RDWCV 11.5-15.0 % RDW-CV 14.9 LAB PLTCT 150-400 k/uL Platelet High Count 502 LAB MPV 9.0-12.7 fL MPV 9.6 LAB NEUTS % Neut% 62.2 LAB AANEUT 1.45-7.50 k/uL Abs Neut 6.30 LAB LYMPHS % Lymph% 29.8 LAB AALYMP 1.00-4.00 k/uL Abs Lymph 3.02 LAB MONOS % [place]% 7.2 LAB AAMONO <0.87 k/uL Abs [place] 0.73 LAB EOS % Eosin% 0.7 LAB AAEOS <0.46 k/uL Abs Eosin 0.07 LAB BASOS % Baso% 0.1 LAB AABASO <0.11 k/uL Abs Baso <0.03 LAB DTYP DTYPE Auto Diff Performed By: #### DAVID, BMP, MG1, PHOS #### [place] [address] BASIC METABOLIC PANL Collected: 02/21/2018 Status: F Source: [place] 4:23 AM CLINIC OTHER CAMPUS REPOSITORY TYPE CODE TESTS RESULT OUT OF REFERENCE UNITS RANGE LAB GLU 65-100 mg/dL Glucose High 103 LAB BUN 8-25 mg/dL BUN 12 LAB CRET 0.70-1.40 mg/dL Creatinine 0.70 LAB NA 132-148 mmol/L Sodium 137 LAB K 3.5-5.0 mmol/L Potassium 4.0 LAB CL 98-110 mmol/L Chloride 102 LAB CO2 23-32 mmol/L CO2 23 LAB AGAP 9-18 mmol/L Anion Gap 12 LAB CA 8.5-10.5 mg/dL Calcium, Total 8.8 LAB GFRAA >60 eGFR- >60 Amer. LAB GFRNAA >60 . eGFR-All Other Races >60 Performed By: #### CBCDIF, BMP, MG1, PHOS #### [address] [place] [id number] [place] [address] MAGNESIUM Collected: 02/21/2018 Status: F Source: [place] 4:23 AM CLINIC OTHER CAMPUS REPOSITORY TYPE CODE TESTS RESULT OUT OF REFERENCE UNITS RANGE LAB MG 1.7-2.6 mg/dL Magnesium 2.1 Performed By: #### CBCDIF, BMP, MG1, PHOS #### [id number] [place] [address] PHOSPHORUS Collected: 02/21/2018 Status: F Source: [place] 4:23 AM [facility] REPOSITORY TYPE CODE TESTS RESULT OUT OF REFERENCE UNITS RANGE LAB PHOS 2.5-4.5 mg/dL Phosphorus 3.8 Performed By: #### CBCDIF, BMP, MG1, PHOS #### [place] [address] NURSING PROG Observed: 02/21/2018 Status: COMPLETED Source: [place] 3:59 AM [facility] REPOSITORY HNO ID: [id number] Author: Constantine (Rn) SARAH Kraft Service: Nursing Author Type: Registered Nurse Type: Nursing Progress Note Filed: 02/21/2018 4:00 AM Note Text: Nursing Progress Note Patient Name: Neil Mendenhall [address] [id number] Daily Note: Assumed care of patient. VSS no s/sx. Patient reports no concerns. No new issues noted at this time. Safety precautions in place, safety maintained. RN will CTM for changes to baseline. This note was completed by: Constantine Kraft RN APTT Collected: 02/21/2018 Status: F Source: [place] 12:47 AM [facility] REPOSITORY TYPE CODE TESTS RESULT OUT OF RANGE REFERENCE UNITS LAB APTT 23.0-32.4 sec High APTT 56.2 Result Comment: Unfractionated Heparin Therapeutic Ranges: Standard Heparin Nomogram: 53 to 78 seconds (anti-Xa level of 0.3 to 0.7 U/ml) Low Dose/ACS Nomogram: 49 to 67 seconds (anti-Xa level of 0.2 to 0.5 U/ml) Stroke Treatment Nomogram: 49 to 67 seconds (anti-Xa level of 0.2 to 0.5 U/ml) Note: The APTT therapeutic range has been determined for the current lot of laboratory APTT reagent in use throughout the [facility]. Performed By: #### PTT #### [place] [address] NURSING PROG Observed: 02/20/2018 Status: COMPLETED Source: [place] 6:52 PM [facility] REPOSITORY HNO ID: [id number] Author: Madison (Rn) SARAH Mascorro Service: (none) Author Type: Registered Nurse Type: Nursing Progress Note Filed: 02/20/2018 6:55 PM Note Text: Nursing Progress Note Patient Name: Neil Mendenhall Patient Location: [address]39 Daily Note:Heparin drip continues,rate increased to 15cc/hr.Bolus of 2500 units given.Next draw will be at 12:30 A.M.Continues to c/o nausea-Scopalmine Patch applied behind the right ear.EKG was done. This note was completed by: Madison Mascorro RN APTT Collected: 02/20/2018 Status: F Source: [place] 5:12 PM [facility] REPOSITORY TYPE CODE TESTS RESULT OUT OF RANGE REFERENCE UNITS LAB APTT 23.0-32.4 sec High APTT 45.0 Result Comment: Unfractionated Heparin Therapeutic Ranges: Standard Heparin Nomogram: 53 to 78 seconds (anti-Xa level of 0.3 to 0.7 U/ml) Low Dose/ACS Nomogram: 49 to 67 seconds (anti-Xa level of 0.2 to 0.5 U/ml) Stroke Treatment Nomogram: 49 to 67 seconds (anti-Xa level of 0.2 to 0.5 U/ml) Note: The APTT therapeutic range has been determined for the current lot of laboratory APTT reagent in use throughout the [facility]. Performed By: #### PTT #### [id number] [place] [address] EKG (AK,AV,EU,FV,HL,JILLIAN,MM,SP) Observed: Status: F Source: [place] 02/20/2018 4:44 PM [facility] REPOSITORY NAME : NEIL MENDENHALL PID : [id number] : 1965 Gender : Female Race : ORD : [id number] Procedure Date : Feb 20 2018 16:44:21 Edit Date : Feb 22 2018 20:11:28 Diagnosis:SINUS RHYTHM ABNRM R PROG, CONSIDER ASMI OR LEAD PLACEMENT Abnormal ECG Confirmed by EMELIA SANABRIA M.D. ([id number]) on 02/22/2018 8:11:27 PM Ventricular Rate : 81 BPM Atrial Rate : 81 BPM P-R Interval : 180 ms QRS Duration : 76 ms Q-T Interval : 384 ms QTC Calculation(Bezet) : 446 ms P [place] : 41 degrees R [place] : 26 degrees T [place] : 70 degrees Test Reason : OPEN Location : 400 : [facility] Overread By : EMELIA SANABRIA M.D. Edited By : EMELIA SANABRIA M.D. Referred By : DHEERAJ TRUJILLO Acquired by : TYRELL XIE Observed: 02/20/2018 Status: COMPLETED Source: [place] 2:31 PM [facility] REPOSITORY HNO ID: [id number] Author: Vandana Stratton Service: Occupational Therapy Author Type: Occupational Therapist Type: Therapy (PT/OT/Speech/Resp) Filed: 02/20/2018 2:38 PM Note Text: Occupational Therapy Evaluation SERVICE DATE: 02/20/2018 SERVICE TIME: 1145 to 1215 ROOM: [place] [address] Recommended Discharge Disposition: Acute Rehab Justification For Post Acute Needs: Anticipate patient will tolerate 3 hours of daily therapy at the time of admission to post-acute setting;Cognition intact;Good family support;Good premorbid functional status Anticipated Discharge Needs: Physical Assist at Home Physical Assist at Home for: Cleaning;Laundry;Meals;Shopping;Transportation Recommended Discharge Equipment: To Be Determined OT Recommendations to Nursing: ADL?s in chair;OOB for meals OT 6 Clicks Score: 19 Precautions/Activity Restrictions: Fall Risk;Weight Bearing Restrictions;Lines/Tubes/Drains;Bed/Chair Alarm Extremity With Weight Bearing Restricted: Left Lower Extremity Left Lower Extremity Weight Bearing Status: NWB ASSESSMENT: 52 yo patient admitted with complaint of left foot pain, palor, coolness. Patient is s/p LLE fem-ak pop bipass for PAD. Pt diagnosed with Left lower extremity chronic toe ischemia, Dry gangrene on toe of left leg. Surgery on 02/18/18 below knee amputation left. Pt?s pertinent PMH includes: CAD, PAD . Pt presents with impaired self care task performance, decreased functional mobility, decreased strength/endurance, decreased safety. Patient has support from family but the patient's current needs for assist may exceed level of available support. Patient would benefit from skilled OT services to increase activity tolerance, independence and safety with ADL performance, instruction of energy conservation techniques, and improved balance with functional mobility tasks. Patient Disposition at Start of Session: Supine in Bed;Bed Alarm Patient Disposition at End of Session: OOB in Chair;Chair Alarm Tolerance Limited By (N AND V) Occupational Therapy Problem List: Education Deficit;Pain;Safety Deficits;Impaired Self Care;Functional Mobility Impairment;Balance Impaired Patient /Caregiver Goals: Go To Rehab Goals for Plan of Care: Able to perform HEP with: Independent Grooming with: Set Up Upper Body Bathing with: Set Up Upper Body Dressing with: Set Up Lower Body Bathing with: Supervision Lower Body Dressing with: Minimal Assistance Toilet Hygiene with: Minimal Assistance Rehab Potential: Good PLAN: Treatment Frequency (times per week): 4 Current admission Treatment Interventions: Education;Self Care / Home Management;Energy Conservation Training;Strengthening;Balance Training;Pain Management Plan of Care developed with: Patient;Family TREATMENT INTERVENTIONS: Therapy Diagnosis: Reduced mobility-other;Decreased activities of daily living (ADL);Unsteadiness on feet Interventions Provided: Evaluation;Therapeutic Exercise (90778);Therapeutic Activity (73262);Self Prison Management (10219) $ Evaluation-Low (35455) Billed Units: 1 unit Therapeutic Exercise (71733) Treatment Minutes: 8 1 unit Skilled Intervention(s): Instruction in therapeutic exercise : AROM Bilateral upper extremities All plane/ranges 15x/1 set Issued home exercise program Therapeutic Activity (15027) Treatment Minutes: 3 0 units Skilled Intervention(s): Instruction in sit to and from stand technique with proper hand placement and body positioning at edge of bed/chair Education with proper, safe transfer method with walker Self Prison Management (01190) Treatment Minutes: 2 0 units Skilled Intervention(s): Education in :benefits of DME Total Timed Code Treatment Minutes: 13 Total Treatment Time (minutes): 30 FUNCTIONAL G CODE: OT 6 Clicks Score: 19 (02/20/18 1145) Self Care Current Status (G8987): CK (02/20/18 1145) Self Care Goal Status (G8988): CK (02/20/18 1145) Based on clinical assessment and the score on the 6 Clicks Functional Assessment Tool, the G code and corresponding severity modifiers are documented above. Physician signature certifies treatment plan of care established above for the period of 02/20/2018 through 03/06/2018. SUBJECTIVE: Current Hospital Course: Chart reviewed; : please refer to assessment section above Reason for Occupational Therapy Consult: eval and tx Relevant Past Medical History: see eval note please Patient Report: Nausea Home Environment Patient Lives With: Self/Alone Assistance Available: multimedia producer;Other: See Comment (friends and family in area) Entry To Home: Stairs;Without Rail Number Of Stairs Into Home: 3 Number Of Stairs To Bed/Bath: 2nd floor bed and bath with 12-15 steps up and rail for support. Stairs to Bed/Bath with: Unilateral Rail Equipment Owned: Cane;Wheeled Walker;Grab Bars-Shower;Shower Chair Prior Functional Level: Within Functional Limits;Other: See Comment (ambulates with cane, ind with ADL's, IADL's, drives) OBJECTIVE: Responsiveness: Alert Follows Commands: 2-step Commands CURRENT FUNCTIONAL STATUS: Current Activities of Daily Living Assist Level Feeding Independent Grooming Supervision Bathing Upper Body Supervision Bathing Lower Body Minimal Assistance Dressing Upper Body Supervision Dressing Lower Body Moderate Assistance Toileting Moderate Assistance Instrumental Activities of Daily Living Assist Level Meal/Beverage Prep Total Assistance Light Cleaning Total Assistance Laundry Maximal Assistance Medication Management with Strategies Functional Mobility Assist Level Rolling Minimal Assistance Supine to Sit Minimal Assistance Sit to Supine Scooting Minimal Assistance Sit to Stand Minimal Assistance Stand to Sit Contact Guard Assistance Bed to Chair Minimal Assistance Wheeled Walker Toilet/Commode Functional Mobility Minimal Assistance Wheeled Walker Please see discipline specific clinical documentation flowsheet for complete details for this therapy evaluation/treatment. SIGNATURE: UZMA Thompson/L PATIENT NAME: Neli Mendenhall DATE: February 20, 2018 TIME: 2:31 PM THERAPY NT Observed: 02/20/2018 Status: COMPLETED Source: [place] 12:41 PM CLINIC OTHER CAMPUS REPOSITORY HNO ID: [id number] Author: El Wise (Pt) Josh Service: Physical Therapy Author Type: Physical Therapist Type: Therapy (PT/OT/Speech/Resp) Filed: 02/20/2018 4:06 PM Note Text: Physical Therapy Evaluation SERVICE DATE: 02/20/2018 SERVICE TIME: 1135 to 1200 ROOM: [place] [address] Recommended Discharge Disposition: Acute Rehab Justification For Post Acute Needs: Anticipate patient will tolerate 3 hours of daily therapy at the time of admission to post-acute setting;Willing to participate;Motivated;Medically complex;Living the community premorbidly;Good family support;Cognition intact Anticipated Discharge Needs: Physical Assist at Home Physical Assist at Home for: Cleaning;Laundry;Meals;Shopping;Transportation Recommended Discharge Equipment: To Be Determined PT Recommendations to Nursing: OOB for Meals;With assist of 2 people (2 people for safety (managing lines during transfer) Device: Wheeled Walker PT 6 Clicks Score: 17 Precautions/Activity Restrictions: Fall Risk;Weight Bearing Restrictions;Lines/Tubes/Drains;Bed/Chair Alarm Precaution/Activity Restriction Comments: PT ordered for once a day ambulation, L BKA Extremity With Weight Bearing Restricted: Left Lower Extremity Left Lower Extremity Weight Bearing Status: NWB ASSESSMENT : Patient presents with weakness, post op pain, impaired balance, and functional mobility, increasing pt's risk for falls and reliance on others for assistance. Pt could benefit from skilled therapy services to address impairments and to maximize function and safety. Pt lives alone and is normally functionally independent. Currently she requires min assistance for functional transfers and short distance of ambulation using ww. Pt limited due to nausea. Based on pt's current functional mobility and medical complexity, it is my recommendation that she receive skilled therapy services in an ARF. Patient Disposition at Start of Session: Supine in Bed Patient Disposition at End of Session: OOB in Chair;Call De Guzman in Reach Tolerance Limited By Other: See Comment (nausea, RN notifies/aware, she was given nausea medication) Physical Therapy Problem List: Safety Deficits;Decreased Activity Tolerance;Decreased Strength;Functional Mobility Impairment;Balance Impaired;Pain;Decreased Range Of Motion;Edema Patient /Caregiver Goals: Go To Rehab Goals for Plan of Care: Able to perform HEP with: Independent Rolling with: Modified Independent Transfer supine to/from sit with: Modified Independent Transfer sit to/from stand with: Contact Guard Assistance Ambulate with: Contact Guard Assistance Distance: 25 Device: Wheeled Walker Ambulate up and down curb step with: Moderate Assistance Device: Wheeled Walker Ambulate up and down steps with: Moderate Assistance Number of steps: 4 Device: Crutch(es);Rail Transfer: Pt able to perform bed to chair pivot transfer with min A Propel wheelchair with: Contact Guard Assistance Distance: 100 Rehab Potential: Excellent PLAN: Treatment Frequency (times per week): 2;3 Current admission Treatment Interventions: Education;Strengthening;Functional Mobility Training;Balance Training;Energy Conservation Training;Joint Mobility Plan of Care developed with: Patient TREATMENT INTERVENTIONS: Therapy Diagnosis: Reduced mobility-other;Muscle Weakness (generalized);Unsteadiness on feet Interventions Provided: Evaluation;Gait Training (86734) $ Evaluation-Moderate (08360) Billed Units: 1 unit Gait Training (13005) Treatment Minutes: 10 1 unit Skilled Intervention(s): Instruction in sit to stand technique with proper hand placement and body positioning at edge of bed/chair, Instruction in stand to sit technique with LE's touching chair/bed and reaching back for surface, Instruction in sequencing, gait pattern, Instruction in correction of gait deviations, Instruction in use of equipment, cues for sequence and pattern and pt performed functional transfers and short distance of mobility for functional mobility training, strengthening and endurance Total Timed Code Treatment Minutes: 10 Total Treatment Time (minutes): 25 FUNCTIONAL G CODE: PT 6 Clicks Score: 17 (02/20/181134) Mobility: Walking and Moving Around Current Status (G8978): CK (02/20/18 113) Mobility: Walking and Moving Around Goal Status (G8979): CK (02/20/181134) Based on clinical assessment and the score on the 6 Clicks Functional Assessment Tool, the G code and corresponding severity modifiers are documented above. SUBJECTIVE: Current Hospital Course: Chart reviewed; Pt admitted with L 2nd toe gangrene, foot pain, and coolness. S/p recent L LE bypass sx Reason for Physical Therapy Consult : PAD, L 2nd toe gangrene, s/p BKA Relevant Past Medical History: PVD, CAD, HLD, bipolar, thrombus, refer to chart for full pmh Patient Report: Pt agreeable to participate in therapy session. Reports nausea during mobility Home Environment Patient Lives With: Self/Alone Assistance Available: multimedia producer;Other: See Comment (friends and family in area) Entry To Home: Stairs;Without Rail Number Of Stairs Into Home: 3 Number Of Stairs To Bed/Bath: 2nd floor bed and bath with 12-15 steps up and rail for support. Stairs to Bed/Bath with: Unilateral Rail Equipment Owned: Cane;Wheeled Walker;Grab Bars-Shower;Shower Chair Prior Functional Level: Within Functional Limits;Other: See Comment (ambulates with cane, ind with ADL's, IADL's, drives) OBJECTIVE: CURRENT FUNCTIONAL STATUS: Current Functional Mobility Assist Level Additional Information Rolling Supine to Sit Minimal Assistance Sit to Supine Scooting Minimal Assistance Sit to Stand Minimal Assistance Stand to Sit Minimal Assistance Bed to Chair Toilet/Commode Gait Minimal Assistance Gait Device: Wheeled Walker Gait Distance (feet): 4 Stairs Curb Step Car Transfer General Gait Deviations: Thao decreased;Step length decreased;Flexed trunk posture;Other: See comment (unsteadiness) Balance: Static Sitting;Static Standing;Dynamic Standing Static Sitting Balance: Stand By Assistance Static Standing Balance: Minimal Assistance Dynamic Standing Balance: Minimal Assistance Please see discipline specific clinical documentation flowsheet for complete details for this therapy evaluation/treatment. SIGNATURE: El Moreno, PT PATIENT NAME: Neil Mendenhall DATE: February 20, 2018 TIME: 12:41 PM APTT Collected: 02/20/2018 Status: F Source: [place] 10:20 AM CLINIC OTHER CAMPUS REPOSITORY TYPE CODE TESTS RESULT OUT OF RANGE REFERENCE UNITS LAB APTT 23.0-32.4 sec High APTT 50.6 Result Comment: Unfractionated Heparin Therapeutic Ranges: Standard Heparin Nomogram: 53 to 78 seconds (anti-Xa level of 0.3 to 0.7 U/ml) Low Dose/ACS Nomogram: 49 to 67 seconds (anti-Xa level of 0.2 to 0.5 U/ml) Stroke Treatment Nomogram: 49 to 67 seconds (anti-Xa level of 0.2 to 0.5 U/ml) Note: The APTT therapeutic range has been determined for the current lot of laboratory APTT reagent in use throughout the [facility]. Performed By: #### PTT #### [id number] [place] [address] NURSING PROG Observed: 02/20/2018 Status: COMPLETED Source: [place] 10:00 AM [facility] REPOSITORY HNO ID: [id number] Author: Madison Mari) SARAH Mascorro Service: (none) Author Type: Registered Nurse Type: Nursing Progress Note Filed: 02/20/2018 4:10 PM Note Text: Nursing Progress Note Patient Name: Neil Mendenhall [id number] Daily Note:IV infusing as ordered.Ate nothing-having nausea and had a large amt. of emesis this morning-zofran was given with good relief.Humphries draining yellow urine.Left stump dressing dry and intact.C/o phantom pain in the left ankle area-medicated when needed.Left popliteal nerve block intact.Josh Okch in place and draining a reddish drainage.Up to chair with walker and 2 assist.Will reassess. This note was completed by: Madison Mascorro RN PROGRESS Observed: 02/20/2018 Status: COMPLETED Source: [place] 9:19 AM [facility] REPOSITORY HNO ID: [id number] Author: Shandra (Igor Ba MD Service: Vascular Surgery Author Type: Resident Type: Progress Notes Filed: 02/20/2018 9:22 AM Note Text: Vascular Surgery Progress Note Service Date: February 20, 2018 Assessment and Plan: Neil Mendenhall is a 52 year old female with history of PVD and chronic dry gangrene of Left toe, now POD#2 from Left BKA on 02/18. -Appreciate pain management recs. Will continue current regimen -regular diet. Had emesis overnight. Suggested she back down, stick with liquids for now. -will add bowel regimen -IVF to 50cc/hr -continue Ancef for total 9 doses -heparin drip low dose ACS nomogram (NO BOLUS) -home meds -continue ALLI wrap to LLE. Will remove tomorrow -IS -continue LYNNETTE drain to bulb suction -try to be up to chair to help with return of bowel function Subjective: Acute events overnight: emesis. Pain Mostly controlled Tired, but otherwise feeling well. Physical Exam: BP 158/72 Pulse 80 Temp 37.2 ?C (99 ?F) (Oral) Resp 16 Ht 167.6 cm (5' 6) Wt 84.4 kg (186 lb) LMP 08/07/2011 SpO2 95% BMI 30.02 kg/m? GENERAL: well appearing 52 year old female in no acute distress LUNGS: breathing comfortably CARDIAC: warm and well perfused throughout LLE: ALLI wrap in place, not saturated. LYNNETTE drain with SS output. NEURO: grossly intact Labs: CBC, BMP, MG, PHOS Recent Labs 02/20/18 0316 02/20/18 0315 02/19/18 0434 02/19/18 0025 02/05/18 1340 11/23/17 1215 11/12/17 0210 11/11/17 0429 10/23/17 0324 WBC 9.85 -- 8.74 10.66 7.79 7.58 < > 9.66 7.55 < > -- HB 12.9 -- 11.6 12.0 13.4 11.8 < > 11.8 12.4 < > -- HCT 39.2 -- 35.6* 36.4 40.9 36.3 < > 37.0 39.3 < > -- PLT 532* -- 510* 492* 346 732* < > 446* 561* < > -- NA 139 -- 140 -- 137 139 < > 136 139 < > 139 K 3.7 -- 3.9 -- 4.6 4.0 < > 4.1 3.9 < > 3.7 CHLOR 99 -- 104 -- 102 102 < > 101 105 < > 103 CO2 23 -- 21* -- 21* 21* < > 22* 20* < > 21* BUN 11 -- 10 -- 11 13 < > 11 15 < > 6* CREAT 0.69* -- 0.71 -- 0.79 0.79 < > 0.72 0.76 < > 0.66* GLUC 147* -- 118* -- 100 113* < > 130* 101* < > 87 CA 9.5 -- 8.9 -- 9.3 9.4 < > 8.3* 8.9 < > 8.3* MG -- 2.1 1.9 -- -- -- -- 2.1 2.3 -- 2.1 P -- 3.9 3.9 -- -- -- -- 3.8 -- -- 3.1 < > = values in this interval not displayed. Liver Function, Amylase, AND Lipase Recent Labs 11/23/17 1215 11/11/17 1407 11/10/17 1515 04/20/14 2040 01/15/11 1712 TPROT 7.9 -- 8.3 7.0 7.6 ALB 4.1 -- 4.4 3.6 4.48 ALT 11 -- 21 26 -- AST 10 -- 11 16 -- ALKPHOS 74 -- 70 77 -- TBILI <0.2 -- 0.2 0.3 -- LACT 1.5 0.32* -- -- -- Coags Recent Labs 02/20/18 0315 02/19/18 0025 02/05/18 1340 11/23/17 1215 11/15/17 0558 11/14/17 1026 11/13/17 1010 APTT 31.0 23.9 -- -- 48.3* 54.9* < > 43.6* INR -- 1.0 <0.9* 1.0 -- -- -- 1.0 < > = values in this interval not displayed. Intake and Output: Date 02/19/18699 - 02/20/1865802/20/18699 - 02/21/18 0659 Shift 9811-3399 7315-9759 1904-0670 24 Hour Total 9918-3253 5087-4288 2709-8226 24 Hour Total I N T A K E IV 687 434 945 3449 LR 687 722 033 9972 Shift Total 687 772 921 4614 O U T P U T Urine 875 737 834 9261 Tube Output ( Indwelling Urinary Catheter 02/18/18 1722 Humphries) 875 908 880 0161 Emesis 450 450 Emesis (ml) 450 450 Tubes 15 15 Drain/Tube Output (Drain/Tube 02/18/18 1817 Josh Koch Left Leg Drain #1) 15 15 # of BMs Number of BMs 0 x 0 x Shift Total 875 507 234 0370 Weight (kg) 81.5 81.5 84.4 84.4 84.4 84.4 84.4 84.4 Current Medications: Current hospital medications: ondansetron (PF) 4 mg injection (ZOFRAN) 4 mg INTRAVENOUS q 6 H PRN acetaminophen 650 mg tab(s) (TYLENOL) 650 mg ORAL q 6 H oxyCODONE IR 5-10 mg tab(s) (ROXICODONE) 5-10 mg ORAL q 6 H PRN calcium carbonate 500 mg chewable tab(s) (TUMS) 500 mg ORAL BID lactated ringers infusion 50 mL/hr INTRAVENOUS CONTINUOUS ceFAZolin iv piggyback 1 g in D5W (iso-osmotic) 50 mL (ANCEF) 1 g INTRAVENOUS q 8 HR acetaminophen 650 mg tab(s) (TYLENOL) 650 mg ORAL q 4 H PRN lamoTRIgine 200 mg tab(s) (LaMICtal) 200 mg ORAL DAILY atorvastatin 80 mg tab(s) (LIPITOR) 80 mg ORAL DAILY ARIPiprazole 20 mg tab(s) (ABILIFY) 20 mg ORAL DAILY NIFEdipine XL 30 mg tab(s) (ADALAT CC) 30 mg ORAL DAILY docusate sodium 100 mg cap(s) (COLACE) 100 mg ORAL BID HYDROmorphone 0.2 mg injection (DILAUDID) 0.2 mg INTRAVENOUS q 3 H PRN heparin iv infusion (LOW DOSE ACS/NOMOGRAM) 25,000 units in NaCl 0.45% 250 mL PREMIX 0-3,000 Units/hr INTRAVENOUS CONTINUOUS heparin RATE CHANGE bolus 1,000-4,000 Units for subtherapeutic aptt results 1,000-4,000 Units INTRAVENOUS PRN NaCl 0.9% iv infusion 5-30 mL/hr INTRAVENOUS CONTINUOUS lactated ringers 250-500 mL iv bolus 250-500 mL INTRAVENOUS PRN ropivacaine nerve block 0.2% - 100 mL PERIPHERAL NERVE CATHETER CONTINUOUS Signature: Shandra Ba MD February 20, 2018 9:20 AM Patient Name: Neil Mendenhall CONSULT PROG Observed: 02/20/2018 Status: COMPLETED Source: [place] 8:34 AM CLINIC OTHER CAMPUS REPOSITORY HNO ID: [id number] Author: Bhaskar Santiago Service: Pain Management Author Type: Physician Swimmer Type: Consult Progress Note Filed: 02/20/2018 8:40 AM Note Text: PERIPHERAL NERVE CATHETER PROGRESS NOTE PATIENT NAME: Neil Mendenhall SERVICE DATE: 02/20/2018 SERVICE TIME: 8:34 AM ASSESSMENT Neil Mendenhall is a 52 year old female who is POD# 2, S/P left?lower extremity below knee amputation. PNC site without signs or symptoms of infection, no erythema, tenderness, drainage, or warmth. sensory and motor WNL for distribution of PNC. Patient tolerable 7/10 pain level to LLE. LLE. Utilizing prn dilaudid total 0.8 mg given yesterday and prn oxycodone total of 20 mg given yesterday with tylenol 650 mg Q 6 po. ? PLAN Continue current pain regimen, will follow. ? SUBJECTIVE CHIEF COMPLAINT: left?lower extremity below knee amputation ? PRIMARY SERVICE: Vascular ? INTERVAL HPI: Neil Mendenhall is a 52 year old female who is POD 2, S/Pleft?lower extremity below knee amputation with left popliteal PNC for post-operative pain control infusing ropiv 0.2% @ 6 ml Q 30 min. . ? Pain level is 7 at rest 8 with ambulation on a scale of 0-10. Is the patient tolerating Physical Therapy?: No - not at this time Pain at surgical site? Yes, Character: throbbing Duration: consistent Radiation: No Relieved: mildly with PNC Is patient satisfied with pain control: yes Overnight Events: None Overnight Pain Interventions: No ? Allergy: ALLERGIES ALLERGIES Allergen Reactions - Horizant [Gabapenti* Mental Status Change - Wellbutrin [Bupropi* Other: See Comments ? ? Took med on Wednesday Woke up 3 days later in hospital ? MEDICATIONS: I have interrogated the PNC pump for the correct settings and solution: Yes. Solution Ropivacaine 0.2%, basal rate 6 ml/hr. Adjuvant Pain Medication: See below. Current hospital medications: ondansetron (PF) 4 mg injection (ZOFRAN) 4 mg INTRAVENOUS q 6 H PRN acetaminophen 650 mg tab(s) (TYLENOL) 650 mg ORAL q 6 H oxyCODONE IR 5-10 mg tab(s) (ROXICODONE) 5-10 mg ORAL q 6 H PRN calcium carbonate 500 mg chewable tab(s) (TUMS) 500 mg ORAL BID lactated ringers infusion 50 mL/hr INTRAVENOUS CONTINUOUS ceFAZolin iv piggyback 1 g in D5W (iso-osmotic) 50 mL (ANCEF) 1 g INTRAVENOUS q 8 HR acetaminophen 650 mg tab(s) (TYLENOL) 650 mg ORAL q 4 H PRN lamoTRIgine 200 mg tab(s) (LaMICtal) 200 mg ORAL DAILY atorvastatin 80 mg tab(s) (LIPITOR) 80 mg ORAL DAILY ARIPiprazole 20 mg tab(s) (ABILIFY) 20 mg ORAL DAILY NIFEdipine XL 30 mg tab(s) (ADALAT CC) 30 mg ORAL DAILY docusate sodium 100 mg cap(s) (COLACE) 100 mg ORAL BID HYDROmorphone 0.2 mg injection (DILAUDID) 0.2 mg INTRAVENOUS q 3 H PRN heparin iv infusion (LOW DOSE ACS/NOMOGRAM) 25,000 units in NaCl 0.45% 250 mL PREMIX 0-3,000 Units/hr INTRAVENOUS CONTINUOUS heparin RATE CHANGE bolus 1,000-4,000 Units for subtherapeutic aptt results 1,000-4,000 Units INTRAVENOUS PRN NaCl 0.9% iv infusion 5-30 mL/hr INTRAVENOUS CONTINUOUS lactated ringers 250-500 mL iv bolus 250-500 mL INTRAVENOUS PRN ropivacaine nerve block 0.2% - 100 mL PERIPHERAL NERVE CATHETER CONTINUOUS OBJECTIVE: PHYSICAL EXAM: Patient Vitals for the past 3 hrs: Weight 02/20/18 0600 84.4 kg (186 lb) Affect: awake General Impression: appears comfortable although noted pain with movement. ? Catheter site is clean, non-tender and dressing intact. Sensory exam: Surgical limb: Left Lower Extremity: diminished at distribution of nerve block Other limb: intact Motor Exam: Surgical limb: Left Lower Extremity: diminished at distribution of nerve block Other limb: intact ? Respiratory Exam: Respirations: Breathing appears normal Thoracostomy tube?: No ? Gastrointestinal Exam: Bowel sounds: Yes NG?: No DATA: Lab Results APTT 31.0 02/20/2018 PT Sec 9.9 02/19/2018 PT INR 1.0 02/19/2018 Hemoglobin 12.9 02/20/2018 Hematocrit 39.2 02/20/2018 Platelet Count 532 02/20/2018 Discussed the patient?s progress and plan of care with Dr. Hawley. SIGNATURE: Bhaskar Santiago PA-C PATIENT NAME: Neil Mendenhall DATE: February 20, 2018 TIME: 8:34 AM PAGER/CONTACT #: [facility] [phone] CBC AND DIFFERENTIAL Collected: 02/20/2018 Status: F Source: [place] 3:16 AM CLINIC OTHER CAMPUS REPOSITORY TYPE CODE TESTS RESULT OUT OF REFERENCE UNITS RANGE LAB WBC 3.70-11.00 k/uL WBC 9.85 LAB RBC 3.90-5.20 m/uL RBC 4.61 LAB HGB 11.5-15.5 g/dL Hemoglobin 12.9 LAB HCT 36.0-46.0 % Hematocrit 39.2 LAB MCV 80.0-100.0 fL MCV 85.0 LAB MCH 26.0-34.0 pG MCH 28.0 LAB MCHC 30.5-36.0 g/dL MCHC 32.9 LAB RDWCV 11.5-15.0 % RDW-CV 15.0 LAB PLTCT 150-400 k/uL Platelet High Count 532 LAB MPV 9.0-12.7 fL MPV 9.3 LAB NEUTS % Neut% 75.0 LAB AANEUT 1.45-7.50 k/uL Abs Neut 7.39 LAB LYMPHS % Lymph% 20.7 LAB AALYMP 1.00-4.00 k/uL Abs Lymph 2.04 LAB MONOS % [place]% 3.6 LAB AAMONO <0.87 k/uL Abs [place] 0.35 LAB EOS % Eosin% 0.6 LAB AAEOS <0.46 k/uL Abs Eosin 0.06 LAB BASOS % Baso% 0.1 LAB AABASO <0.11 k/uL Abs Baso <0.03 LAB DTYP DTYPE Auto Diff Performed By: #### CBCDIF, BMP #### [id number] [place] [address] BASIC METABOLIC PANL Collected: 02/20/2018 Status: F Source: [place] 3:16 AM [facility] OTHER CAMPUS REPOSITORY TYPE CODE TESTS RESULT OUT OF REFERENCE UNITS RANGE LAB GLU 65-100 mg/dL Glucose High 147 LAB BUN 8-25 mg/dL BUN 11 LAB CRET 0.70-1.40 mg/dL Low Creatinine 0.69 LAB NA 132-148 mmol/L Sodium 139 LAB K 3.5-5.0 mmol/L Potassium 3.7 LAB CL 98-110 mmol/L Chloride 99 LAB CO2 23-32 mmol/L CO2 23 LAB AGAP 9-18 mmol/L Anion Gap 17 LAB CA 8.5-10.5 mg/dL Calcium, Total 9.5 LAB GFRAA >60 eGFR- >60 Amer. LAB GFRNAA >60 . eGFR-All Other Races >60 Performed By: #### CBCDIF, BMP #### [place] [id number] MAGNESIUM Collected: 02/20/2018 Status: F Source: [place] 3:15 AM [facility] REPOSITORY TYPE CODE TESTS RESULT OUT OF REFERENCE UNITS RANGE LAB MG 1.7-2.6 mg/dL Magnesium 2.1 Performed By: #### MG1, PHOS, PTT #### [place] [id number] PHOSPHORUS Collected: 02/20/2018 Status: F Source: [place] 3:15 AM [facility] REPOSITORY TYPE CODE TESTS RESULT OUT OF REFERENCE UNITS RANGE LAB PHOS 2.5-4.5 mg/dL Phosphorus 3.9 Performed By: #### MG1, PHOS, PTT #### [phone] APTT Collected: 02/20/2018 Status: F Source: [place] 3:15 AM [facility] OTHER [place] REPOSITORY TYPE CODE TESTS RESULT OUT OF RANGE REFERENCE UNITS LAB APTT 23.0-32.4 sec APTT 31.0 Result Comment: Unfractionated Heparin Therapeutic Ranges: Standard Heparin Nomogram: 53 to 78 seconds (anti-Xa level of 0.3 to 0.7 U/ml) Low Dose/ACS Nomogram: 49 to 67 seconds (anti-Xa level of 0.2 to 0.5 U/ml) Stroke Treatment Nomogram: 49 to 67 seconds (anti-Xa level of 0.2 to 0.5 U/ml) Note: The APTT therapeutic range has been determined for the current lot of laboratory APTT reagent in use throughout the [facility]. Performed By: #### MG1, PHOS, PTT #### [facility] [address] [place] [address] NURSING PROG Observed: 02/19/2018 Status: COMPLETED Source: [place] 8:59 PM [facility] REPOSITORY HNO ID: [id number] Author: Nilam (Rn) SARAH Pacheco Service: (none) Author Type: Registered Nurse Type: Nursing Progress Note Filed: 02/20/2018 4:51 AM Note Text: Nursing Progress Note Patient Name: Neil Mendenhall [facility] [place] [id number]: Surgery paged: Neil Mendenhall- [id number]- Pt has a heparin drip to start at 9, do you want it started based on weight or PTT? Please advise. Ally [id number] Advised to start based on weight and then do the PTT in 6 hours. 0410: Surgery paged: Neil Mendenhall- [id number]- Pt is throwing up, can she have something for nausea? Please advise. Ally [id number]. 0420: Order given for zofran PRN. This note was completed by: Nilam Pacheco RN NURSING PROG Observed: 02/19/2018 Status: COMPLETED Source: [place] 6:52 PM [facility] REPOSITORY HNO ID: [id number] Author: Keagan (Rn) SARAH Stearns Service: (none) Author Type: Registered Nurse Type: Nursing Progress Note Filed: 02/19/2018 6:57 PM Note Text: Patient is AANDOx3, room air, lungs clear. LR running, ancef given per mar, ropivocaine nerve block running. Patient reports pain when asked but otherwise does not complain. Patient is requesting that she be woken periodically if asleep to assess pain level and medicate accordingly throughout night. Leg elevated, LYNNETTE drain in place with s/s drainage (see flowsheet). PROGRESS Observed: 02/19/2018 Status: COMPLETED Source: [place] 1:53 PM CLINIC OTHER CAMPUS REPOSITORY HNO ID: [id number] Author: Shandra (Res) MD Mejia Service: Vascular Surgery Author Type: Resident Type: Progress Notes Filed: 02/19/2018 2:00 PM Note Text: Vascular Surgery Progress Note Service Date: February 19, 2018 Assessment and Plan: Neil Mendenhall is a 52 year old female with history of PVD and chronic dry gangrene of Left toe, now POD#1 from Left BKA on 02/18. -Appreciate pain management recs. Increase oxy from 5 to 10 mg q6. Continue peripheral block. -regular diet -decrease IVF to 50cc/hr -continue Ancef for total 9 doses -heparin drip low dose ACS nomogram (NO BOLUS) starting tonight -home meds -continue ALLI wrap to LLE. Do not remove. -IS -continue YLNNETTE drain to bulb suction Subjective: Acute events overnight: none Pain Mostly controlled Tired, but otherwise feeling well. Physical Exam: BP 145/78 Pulse 89 Temp 36.9 ?C (98.4 ?F) (Oral) Resp 16 Ht 167.6 cm (5' 6) Wt 81.5 kg (179 lb 10.8 oz) LMP 08/07/2011 SpO2 97% BMI 29.00 kg/m? GENERAL: well appearing 52 year old female in no acute distress LUNGS: breathing comfortably CARDIAC: warm and well perfused throughout LLE: ALLI wrap in place, not saturated. LYNNETTE drain with SS output. NEURO: grossly intact Labs: CBC, BMP, MG, PHOS Recent Labs 02/19/18 0434 02/19/18 0025 02/05/18 1340 11/23/17 1215 11/15/17 0557 11/12/17 0210 11/11/17 0429 10/23/17 0324 04/21/14 1220 WBC 8.74 10.66 7.79 7.58 8.23 < > 9.66 7.55 < > -- < > 10.13 HB 11.6 12.0 13.4 11.8 10.1* < > 11.8 12.4 < > -- < > 10.9* HCT 35.6* 36.4 40.9 36.3 32.0* < > 37.0 39.3 < > -- < > 33.3* PLT 510* 492* 346 732* 494* < > 446* 561* < > -- < > 292 NA 140 -- 137 139 139 < > 136 139 < > 139 < > 137 K 3.9 -- 4.6 4.0 3.7 < > 4.1 3.9 < > 3.7 < > 4.1 CHLOR 104 -- 102 102 103 < > 101 105 < > 103 < > 105 CO2 21* -- 21* 21* 20* < > 22* 20* < > 21* < > 23 BUN 10 -- 11 13 8 < > 11 15 < > 6* < > 7* CREAT 0.71 -- 0.79 0.79 0.63* < > 0.72 0.76 < > 0.66* < > 0.81 GLUC 118* -- 100 113* 102* < > 130* 101* < > 87 < > 97 CA 8.9 -- 9.3 9.4 8.5 < > 8.3* 8.9 < > 8.3* < > 8.3* MG 1.9 -- -- -- -- -- 2.1 2.3 -- 2.1 -- 2.1 P 3.9 -- -- -- -- -- 3.8 -- -- 3.1 -- 3.1 < > = values in this interval not displayed. Liver Function, Amylase, AND Lipase Recent Labs 11/23/17 12111/11/17 1407 11/10/17 1515 04/20/140 01/15/11 1712 TPROT 7.9 -- 8.3 7.0 7.6 ALB 4.1 -- 4.4 3.6 4.48 ALT -- -- AST 10 -- 16 -- ALKPHOS 74 -- 70 77 -- TBILI <0.2 -- 0.2 0.3 -- LACT 1.5 0.32* -- -- -- Coags Recent Labs 02/19/18 0025 02/05/18 1340 11/23/17 1215 11/15/17 0558 11/14/17 1026 11/14/17 0436 11/13/17 1010 APTT 23.9 -- -- 48.3* 54.9* 61.3* < > 43.6* INR 1.0 <0.9* 1.0 -- -- -- -- 1.0 < > = values in this interval not displayed. Intake and Output: Date 02/18/18699 - 02/19/1865802/19/18699 - 02/20/18 0659 Shift 9113-4105 0983-2915 0660-3867 24 Hour Total 2923-9502 3861-0183 7070-7811 24 Hour Total I N T A K E PO 60 60 PO 60 60 IV 7724 836 3795 Cefazolin IV 50 50 LR 547 547 OR Crystalloid intake (mL) 1000 1000 Shift Total 8679 826 6388 O U T P U T Urine 600 1650 2250 275 275 OR Urine Output 275 275 Tube Output ( Indwelling Urinary Catheter 02/18/18 1722 Humphries) 325 1650 1975 275 275 Tubes 70 45 115 Drain/Tube Output (Drain/Tube 02/18/18 1817 Josh Koch Left Leg Drain #1) 70 45 115 # of BMs Number of BMs 0 x 0 x Blood 40 40 Estimated Blood loss 40 40 Shift Total 710 1695 2405 275 275 Weight (kg) 81.5 81.5 81.5 81.5 81.5 81.5 Current Medications: Current hospital medications: acetaminophen 650 mg tab(s) (TYLENOL) 650 mg ORAL q 6 H oxyCODONE IR 5-10 mg tab(s) (ROXICODONE) 5-10 mg ORAL q 6 H PRN lactated ringers infusion 100 mL/hr INTRAVENOUS CONTINUOUS lactated ringers infusion 100 mL/hr INTRAVENOUS CONTINUOUS ceFAZolin iv piggyback 1 g in D5W (iso-osmotic) 50 mL (ANCEF) 1 g INTRAVENOUS q 8 HR acetaminophen 650 mg tab(s) (TYLENOL) 650 mg ORAL q 4 H PRN lamoTRIgine 200 mg tab(s) (LaMICtal) 200 mg ORAL DAILY atorvastatin 80 mg tab(s) (LIPITOR) 80 mg ORAL DAILY ARIPiprazole 20 mg tab(s) (ABILIFY) 20 mg ORAL DAILY NIFEdipine XL 30 mg tab(s) (ADALAT CC) 30 mg ORAL DAILY docusate sodium 100 mg cap(s) (COLACE) 100 mg ORAL BID HYDROmorphone 0.2 mg injection (DILAUDID) 0.2 mg INTRAVENOUS q 3 H PRN heparin nomogram - NO INITIAL BOLUS OTHER ONCE (heparin bolus) heparin iv infusion (LOW DOSE ACS/NOMOGRAM) 25,000 units in NaCl 0.45% 250 mL PREMIX 0-3,000 Units/hr INTRAVENOUS CONTINUOUS heparin RATE CHANGE bolus 1,000-4,000 Units for subtherapeutic aptt results 1,000-4,000 Units INTRAVENOUS PRN NaCl 0.9% iv infusion 5-30 mL/hr INTRAVENOUS CONTINUOUS lactated ringers 250-500 mL iv bolus 250-500 mL INTRAVENOUS PRN ropivacaine nerve block 0.2% - 100 mL PERIPHERAL NERVE CATHETER CONTINUOUS Signature: Shandra Ba MD Date: February 19, 2018 Time: 1:53 PM Patient Name: Neil Mendenhall CONSULT PROG Observed: 02/19/2018 Status: COMPLETED Source: [place] 8:48 AM CLINIC OTHER CAMPUS REPOSITORY HNO ID: [id number] Author: Bhaskar Santiago Service: Pain Management Author Type: Physician Swimmer Type: Consult Progress Note Filed: 02/19/2018 9:05 AM Note Text: PERIPHERAL NERVE CATHETER PROGRESS NOTE PATIENT NAME: Neil Mendenhall SERVICE DATE: 02/19/2018 SERVICE TIME: 8:48 AM ASSESSMENT Neil Mendenhall is a 52 year old female who is POD# 1, S/P left lower extremity below knee amputation. PNC site without signs or symptoms of infection, no erythema, tenderness, drainage, or warmth. sensory and motor WNL for distribution of PNC. Patient reports 8/10 pain level consistent throbbing pain to LLE. PLAN At this time will increase Oxycodone to 5-10 mg Q 6 prn PO and make tylenol 650 mg Q 6 PO. Will follow. SUBJECTIVE CHIEF COMPLAINT: left lower extremity below knee amputation PRIMARY SERVICE: Vascular INTERVAL HPI: Neil Mendenhall is a 52 year old female who is POD 1, S/Pleft lower extremity below knee amputation with left popliteal PNC for post-operative pain control infusing ropiv 0.2% @ 6 ml Q 30 min. . Pain level is 8 at rest 9 with ambulation on a scale of 0-10. Is the patient tolerating Physical Therapy?: No - not at this time Pain at surgical site? Yes, Character: throbbing Duration: consistent Radiation: No Relieved: mildly with PNC Is patient satisfied with pain control: No Overnight Events: None Overnight Pain Interventions: No Allergy: ALLERGIES Allergen Reactions - Horizant [Gabapenti* Mental Status Change - Wellbutrin [Bupropi* Other: See Comments Took med on Wednesday Woke up 3 days later in hospital MEDICATIONS: I have interrogated the PNC pump for the correct settings and solution: Yes. Solution Ropivacaine 0.2%, basal rate 6 ml/hr. Adjuvant Pain Medication: See below. Current hospital medications: lactated ringers infusion 100 mL/hr INTRAVENOUS CONTINUOUS lactated ringers infusion 100 mL/hr INTRAVENOUS CONTINUOUS ceFAZolin iv piggyback 1 g in D5W (iso-osmotic) 50 mL (ANCEF) 1 g INTRAVENOUS q 8 HR acetaminophen 650 mg tab(s) (TYLENOL) 650 mg ORAL q 4 H PRN lamoTRIgine 200 mg tab(s) (LaMICtal) 200 mg ORAL DAILY atorvastatin 80 mg tab(s) (LIPITOR) 80 mg ORAL DAILY ARIPiprazole 20 mg tab(s) (ABILIFY) 20 mg ORAL DAILY NIFEdipine XL 30 mg tab(s) (ADALAT CC) 30 mg ORAL DAILY docusate sodium 100 mg cap(s) (COLACE) 100 mg ORAL BID acetaminophen 650 mg tab(s) (TYLENOL) 650 mg ORAL q 6 H PRN oxyCODONE IR 5 mg tab(s) (ROXICODONE) 5 mg ORAL q 4 H PRN HYDROmorphone 0.2 mg injection (DILAUDID) 0.2 mg INTRAVENOUS q 3 H PRN heparin nomogram - NO INITIAL BOLUS OTHER ONCE (heparin bolus) heparin iv infusion (LOW DOSE ACS/NOMOGRAM) 25,000 units in NaCl 0.45% 250 mL PREMIX 0-3,000 Units/hr INTRAVENOUS CONTINUOUS heparin RATE CHANGE bolus 1,000-4,000 Units for subtherapeutic aptt results 1,000-4,000 Units INTRAVENOUS PRN NaCl 0.9% iv infusion 5-30 mL/hr INTRAVENOUS CONTINUOUS lactated ringers 250-500 mL iv bolus 250-500 mL INTRAVENOUS PRN ropivacaine nerve block 0.2% - 100 mL PERIPHERAL NERVE CATHETER CONTINUOUS OBJECTIVE: PHYSICAL EXAM: Patient Vitals for the past 3 hrs: BP Temp Temp src Pulse Resp SpO2 Weight 02/19/18 0802 147/70 37 ?C (98.6 ?F) Oral 87 16 97 % - 02/19/18 0600 - - - - - - 81.5 kg (179 lb 10.8 oz) Affect: awake General Impression: appears comfortable although noted pain with movement. Catheter site is clean, non-tender and dressing intact. Sensory exam: Surgical limb: Left Lower Extremity: diminished at distribution of nerve block Other limb: intact Motor Exam: Surgical limb: Left Lower Extremity: diminished at distribution of nerve block Other limb: intact Respiratory Exam: Respirations: Breathing appears normal Thoracostomy tube?: No Gastrointestinal Exam: Bowel sounds: Yes NG?: No DATA: Lab Results APTT 23.9 02/19/2018 PT Sec 9.9 02/19/2018 PT INR 1.0 02/19/2018 Hemoglobin 11.6 02/19/2018 Hematocrit 35.6 02/19/2018 Platelet Count 510 02/19/2018 Discussed the patient?s progress and plan of care with Dr. Hawley SIGNATURE: Bhaskar Santiago PA-C PATIENT NAME: Neil Mendenhall DATE: February 19, 2018 TIME: 8:48 AM PAGER/CONTACT #: [facility] [phone] CBC AND DIFFERENTIAL Collected: 02/19/2018 Status: F Source: [place] 4:34 AM CLINIC OTHER CAMPUS REPOSITORY TYPE CODE TESTS RESULT OUT OF REFERENCE UNITS RANGE LAB WBC 3.70-11.00 k/uL WBC 8.74 LAB RBC 3.90-5.20 m/uL RBC 4.18 LAB HGB 11.5-15.5 g/dL Hemoglobin 11.6 LAB HCT 36.0-46.0 % Low Hematocrit 35.6 LAB MCV 80.0-100.0 fL MCV 85.2 LAB MCH 26.0-34.0 pG MCH 27.8 LAB MCHC 30.5-36.0 g/dL MCHC 32.6 LAB RDWCV 11.5-15.0 % RDW-CV 14.8 LAB PLTCT 150-400 k/uL Platelet High Count 510 LAB MPV 9.0-12.7 fL MPV 9.3 LAB NEUTS % Neut% 64.4 LAB AANEUT 1.45-7.50 k/uL Abs Neut 5.63 LAB LYMPHS % Lymph% 30.9 LAB AALYMP 1.00-4.00 k/uL Abs Lymph 2.70 LAB MONOS % [place]% 4.1 LAB AAMONO <0.87 k/uL Abs [place] 0.36 LAB EOS % Eosin% 0.5 LAB AAEOS <0.46 k/uL Abs Eosin 0.04 LAB BASOS % Baso% 0.1 LAB AABASO <0.11 k/uL Abs Baso <0.03 LAB DTYP DTYPE Auto Diff Performed By: #### DAVID, BMP, MG1, PHOS #### [place] [address] BASIC METABOLIC PANL Collected: 02/19/2018 Status: F Source: [place] 4:34 AM [facility]INIC OTHER [place] REPOSITORY TYPE CODE TESTS RESULT OUT OF REFERENCE UNITS RANGE LAB GLU 65-100 mg/dL Glucose High 118 LAB BUN 8-25 mg/dL BUN 10 LAB CRET 0.70-1.40 mg/dL Creatinine 0.71 LAB NA 132-148 mmol/L Sodium 140 LAB K 3.5-5.0 mmol/L Potassium 3.9 LAB CL 98-110 mmol/L Chloride 104 LAB CO2 23-32 mmol/L Low CO2 21 LAB AGAP 9-18 mmol/L Anion Gap 15 LAB CA 8.5-10.5 mg/dL Calcium, Total 8.9 LAB GFRAA >60 eGFR- >60 Amer. LAB GFRNAA >60 . eGFR-All Other Races >60 Performed By: #### BRENDAF, BMP, MG1, PHOS #### [place] [address] MAGNESIUM Collected: 02/19/2018 Status: F Source: [facility] 4:34 AM CLINIC OTHER [facility] REPOSITORY TYPE CODE TESTS RESULT OUT OF REFERENCE UNITS RANGE LAB MG 1.7-2.6 mg/dL Magnesium 1.9 Performed By: #### BRENDAF, BMP, MG1, PHOS #### [place] [address] PHOSPHORUS Collected: 02/19/2018 Status: F Source: [facility] 4:34 AM [facility]INIC OTHER [facility] REPOSITORY TYPE CODE TESTS RESULT OUT OF REFERENCE UNITS RANGE LAB PHOS 2.5-4.5 mg/dL Phosphorus 3.9 Performed By: #### CBCDIF, BMP, MG1, PHOS #### [place] [address] ANES POST Observed: 02/19/2018 Status: COMPLETED Source: [facility] 12:53 AM [facility] REPOSITORY HNO ID: [id number] Author: Bruce Castillo Service: Anesthesiology Author Type: Anesthesiologist Type: Anesthesia PostOp Filed: 02/19/2018 12:54 AM Note Text: POST ANESTHESIA EVALUATION NOTE SERVICE DATE: 02/19/2018 SERVICE TIME: 12:53 AM : 1965 Vitals: 02/18/18 2115 02/18/18 2223 02/18/18 2300 02/18/18 2304 BP: 163/80 154/83 154/83 Pulse: 76 80 85 Resp: 17 20 18 Temp: 37 ?C (98.6 ?F) TempSrc: Oral SpO2: 95% 95% 99% Weight: 81.1 kg (178 lb 12.7 oz) Height: 167.6 cm (5' 6) Validated Vital Signs: Yes No apparent anesthetic complications. The patient is appropriately hydrated with stable respiratory and cardiovascular status. Patient has safe and adequate airway control. The patient has appropriate pain relief and no significant post operative nausea or vomiting. The patient has achieved baseline mental status. Further assessment by Anesthesia Service: None Other Remarks: SIGNATURE: Bruce Castillo MD PATIENT NAME: Neil Mendenhall DATE: February 19, 2018 TIME: 12:53 AM PAGER/CONTACT #: [id number] CBC Collected: 02/19/2018 Status: F Source: [place] 12:25 AM [facility] REPOSITORY TYPE CODE TESTS RESULT OUT OF REFERENCE UNITS RANGE LAB WBC 3.70-11.00 k/uL WBC 10.66 LAB RBC 3.90-5.20 m/uL RBC 4.29 LAB HGB 11.5-15.5 g/dL Hemoglobin 12.0 LAB HCT 36.0-46.0 % Hematocrit 36.4 LAB MCV 80.0-100.0 fL MCV 84.8 LAB MCH 26.0-34.0 pG MCH 28.0 LAB MCHC 30.5-36.0 g/dL MCHC 33.0 LAB RDWCV 11.5-15.0 % RDW-CV 14.8 LAB PLTCT 150-400 k/uL Platelet High Count 492 LAB MPV 9.0-12.7 fL MPV 9.0 Performed By: #### CBC, PT, PTTAC #### [facility] [address] [place] [address] PROTIME Collected: 02/19/2018 Status: F Source: [place] 12:25 AM [facility] OTHER [place] REPOSITORY TYPE CODE TESTS RESULT OUT OF RANGE REFERENCE UNITS LAB PSEC 9.7-13.0 sec PT Sec 9.9 LAB INR 0.9-1.3 PT INR 1.0 Result Comment: Vitamin K Antagonist (VKA) Therapeutic Range: INR 2 to 3 (Target INR of 2.5) Note: For patients treated with VKA drugs, such as warfarin, the [employer] 2012 Guideline recommends a therapeutic INR range of 2 to 3 (target INR of 2.5). This recommendation includes high-risk patients with antiphospholipid syndrome with previous arterial or venous thromboembolism, current-generation mechanical or bioprosthetic aortic heart valve replacement. Note: Patients with mechanical aortic valve replacement and additional risk factors for thromboembolic events (atrial fibrillation, previous thromboembolism, LV dysfunction, hypercoagulable conditions) or an older generation mechanical AVR (i.e., ball in-Cage) or any mechanical MVR should have a INR therapeutic range of 2.5 to 3.5 (target INR of 3). Nimesh GH, et al. Chest 2012, 141:7S-47S Dereck RA, et al. [facility] 2017, 70: 252-289 Performed By: #### CBC, PT, PTTAC #### [facility] [address] [place] [address] PTT,ANTICOAG THERAPY Collected: 02/19/2018 Status: F Source: [place] 12:25 AM [facility] OTHER [place] REPOSITORY TYPE CODE TESTS RESULT OUT OF RANGE REFERENCE UNITS LAB APTT 23.0-32.4 sec APTT 23.9 Result Comment: Unfractionated Heparin Therapeutic Ranges: Standard Heparin Nomogram: 53 to 78 seconds (anti-Xa level of 0.3 to 0.7 U/ml) Low Dose/ACS Nomogram: 49 to 67 seconds (anti-Xa level of 0.2 to 0.5 U/ml) Stroke Treatment Nomogram: 49 to 67 seconds (anti-Xa level of 0.2 to 0.5 U/ml) Note: The APTT therapeutic range has been determined for the current lot of laboratory APTT reagent in use throughout the [facility]. Performed By: #### CBC, PT, PTTAC #### [place] [address] NURSING PROG Observed: 02/18/2018 Status: COMPLETED Source: [place] 11:08 PM [facility] OTHER [facility] REPOSITORY HNO ID: [id number] Author: Antonieta (Rn) SARAH Torres Service: (none) Author Type: Registered Nurse Type: Nursing Progress Note Filed: 02/19/2018 4:11 AM Note Text: Nursing Progress Note Patient Name: Neil Mendenhall Patient Location: [place] [address] [address] Transfer Note: 2250 - Patient transferred into room/unit PK306 in stable condition. Actions taken: No futher actions taken at this time. Will continue to monitor and check with patient. Family at bedside. 2340 - Pt alert and oriented, yet drowsy. Pt able to log roll, skin appears intact. Elastic bandage on left BKA is clean, dry and intact. LYNNETTE to site is draining small amount of bloody drainage. Limb elevated on pillow. No c/o numbness/tingling. Lungs are clear, O2 99% on room air. Rates left limb pain 8/10; given PO oxycodone per SEP. Ropivacaine block infusing per SEP. PAS on right leg. Bed alarm on. Will cont to monitor. 0155 - Pt medicated with PRN dilaudid for 8/10 leg leg pain. Dressing remains clean, dry and intact. LYNNETTE drain emptied for 30mL bloody output. This note was completed by: Antonieta Torres RN OPERATIVE NO Observed: 02/18/2018 Status: COMPLETED Source: [place] 9:45 PM [facility] OTHER [facility]AMP[facility] REPOSITORY O ID: [id number] Author: Flo Aragon Service: Vascular Surgery Author Type: Physician Type: Operative Report Filed: 02/18/2018 9:46 PM Note Text: OPERATIVE/PROCEDURE REPORT LOG ID: [id number] Surgery/Procedure Date: 02/18/2018 Incision/Procedure Start Time: 1746 Incision Close/Procedure End Time: 1848 Surgeon(s)/Proceduralist(s) and Swimmer(s): Surgeon(s) and Role: * Flo Aragon - Primary * Gregg (Jamilah) Aparna - Resident - Assisting No Additional Staff Procedure(s): left lower extremity below knee amputation Anesthesia: General Operative Indications: 52 year old female with ischemic rest pain and digit 3 tissue loss, hypercoagulable state w lupus, multiple failed bypass and stents with 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 Procedure Details: The patient was taken to the operating room, laid supine on the operating table. After time-in, anesthesia was induced by the anesthesiologist. The patient's left lower extremity was prepped and draped in the usual sterile fashion and a catia for a below-knee amputation and posterior flap was made in the usual fashion. An esmarch was used to exsanguinate the leg and the tourniquet was inflated to 300 mmHg. An incision was made along these lines and dissection carried down sharply using the knife and electrocautery. The muscle was transected and all vessels were ligated. The tibia was cleared of soft tissue with a perioesteal elevator and sponge. The tibia was divided with an oscillating saw and a bone cutter for the fibula. The remainder of the leg amputation was completed with an amputation knife and specimen was handed off. The tourniquet was released and hemostasis was achieved with suture ligatures and cautery where appropriate. The wound was irrigated with antibiotic solution. The posterior flap fascia was then approximated to the anterior wound fascia using interrupted buried 0-vicryl sutures. 3-0 nylon suture in vertical mattress fashion and sam were used to approximate the skin. The leg was then dressed with Xeroform, Kerlix, and an Alli wrap. The patient was then awoken from anesthesia and brought to recovery room in stable condition. Pre-Op/Pre-Procedure Diagnosis: pvd Post-Op/Post-Procedure Diagnosis: same Estimated Blood Loss: 25 mls Specimens: left lower extremity below knee Implantable Devices: None Drains: 10 flat Complications: None The primary surgeon/proceduralist performed the procedure with assistance. SIGNATURE: Flo Aragon MD PATIENT NAME: Neil Mendenhall DATE: 02/18/2018 TIME: 9:45 PM PAGER/CONTACT #: PROGRESS Observed: 02/18/2018 Status: COMPLETED Source: [place] 9:14 PM [facility] REPOSITORY HNO ID: [id number] Author: Tyrell Bazzi Service: Anesthesiology Author Type: Anesthesiologist Type: Progress Notes Filed: 02/18/2018 9:17 PM Note Text: Despite holding pressure over one of the insertion sites for the popliteal nerve block for ~10 minutes, still minimal yet constant bleeding. Possible popliteal artery damage from nerve block placement; will hold pressure for [address] pressure dressing. Will continue to closely monitor. Tyrell Bazzi MD [facility] Department of Anesthesiology and Pain Management Pager: [phone] Date: February 18, 2018 Time: 9:17 PM NURSING PROG Observed: 02/18/2018 Status: COMPLETED Source: [place] 9:10 PM [facility] REPOSITORY HNO ID: [id number] Author: Mariely JeffriesRn) SARAH Newman Service: Nursing Author Type: Registered Nurse Type: Nursing Progress Note Filed: 02/18/2018 10:01 PM Note Text: Pt.'s dressing saturated as incision site is actively draining sanguinous drainage. Dr. Bazzi and Resident Dr Silvia aCmpos notified and pressure applied for approximately 50mins, dressing changed and pressure dressing applied. NURSING PROG Observed: 02/18/2018 Status: COMPLETED Source: [place] 8:41 PM [facility] REPOSITORY HNO ID: [id number] Author: Shanita JeffriesRn) Giulia, SARAH Service: (none) Author Type: Registered Nurse Type: Nursing Progress Note Filed: 02/18/2018 8:48 PM Note Text: 1903 received pt from OR. Pt screaming in pain. my leg, my leg. Jluis Marshall at bedside speaking with pt regarding posterior block. Pt agreeable to block. 1914 pt medicated for pain, awaiting nerve block by Dr. Bazzi. [id number] left popliteal nerve block by Dr. Bazzi. Pt tolerated well. 2004 pt states pain is better than before but still rates it as an 8/10. Pt requesting to go to sleep again. 2049 family at bedside. PROCEDURE Observed: 02/18/2018 Status: COMPLETED Source: [place] 8:19 PM [facility] OTHER CAMPUS REPOSITORY O ID: [id number] Author: Tyrell Bazzi Service: Anesthesiology Author Type: Anesthesiologist Type: Procedures Filed: 02/18/2018 8:21 PM Note Text: PERIPHERAL NERVE BLOCK PROCEDURE NOTE SERVICE DATE: 02/18/2018 Incision/Procedure Start Time: 1938 Incision Close/Procedure End Time: 1999 Informed Consent Obtained: Yes Sign in Communication: Completed Time Out: Team Confirms the Correct Patient, Correct Procedure, Correct Site and Site Marking, Correct Position (if applicable), Prep and Dry Time (if applicable). Time: 1943 Affirmation of Time Out: YES Sign Out Discussion: Completed Procedure: Left Popliteal Nerve Block Catheter Used: Yes Indication: Left stump pain S/P BKA. Diagnosis: Pain Moderate Sedation Used: No Epidural/Nerve Block for postop pain per surgeon's request: Yes Pre Procedure Neuro Examination: SENSORY: Intact MOTOR: Intact PROCEDURE DETAILS: ? Vital signs were monitored during the procedure. ? Sterile prep was used and patient was draped in a regular fashion (also head cover, mask and sterile gloves were worn). ? Skin prep: Chloroprep ? The anatomical landmarks were identified. ? Skin infiltrated with 3 mL of lidocaine using 25gG needle. ? Anesthesia Injected: 25 mL of Bupivacaine 0.25 % with 18gG Pajunk Tuohy needle. ? Injection at 6cm from skin, catheter threaded to 15cm ? Ultrasound Used: Yes, Image in Chart; Yes ? Catheter placed and taped in place. ? Patient reported significant pain relief with sensory and motor changes in the appropriate distribution of nerve block. ? No difficulties encountered. Estimated Blood Loss if > Minimal Noted Here Patient tolerated procedure well. Complications: None Post Procedure Neuro Examination: SENSORY: changes along nerve distribution MOTOR: changes along nerve distribution SIGNATURE: Tyrell Bazzi MD PATIENT NAME: Neil Mendenhall DATE: February 18, 2018 TIME: 8:19 PM PAGER/CONTACT #: [email or web address] OP NOT Observed: 02/18/2018 Status: COMPLETED Source: [place] 6:57 PM [facility] REPOSITORY HNO ID: [id number] Author: Gregg Braun Service: Vascular Surgery Author Type: Resident Type: Brief Op Note Filed: 02/18/2018 7:03 PM Note Text: BRIEF OPERATIVE / PROCEDURE NOTE LOG ID: [id number] Surgery/Procedure Date: 02/18/2018 Incision/Procedure Start Time: 5:47 PM Incision Close/Procedure End Time: 6:49 PM Surgeon(s)/Proceduralist(s) and Swimmer(s): Surgeon(s) and Role: * Flo Aragon - Primary * Gregg Braun - Resident - Assisting No Additional Staff Procedure(s): Below the knee amputation of left leg Anesthesia: General ASA Class: Findings: Dry gangrene on toe of left leg. Chronic left leg PVD Estimated Blood Loss: 40 mls Specimens: left leg Complications: None Pre-Op/Pre-Procedure Diagnosis: Chronic left leg PVD Post-Op/Post-Procedure Diagnosis: Chronic left leg PVD SIGNATURE: Gregg Braun MD PATIENT NAME: Neil Mendenhall DATE: February 18, 2018 TIME: 6:57 PM PAGER/CONTACT #: NURSING PROG Observed: 02/18/2018 Status: COMPLETED Source: [place] 5:50 PM [facility] REPOSITORY HNO ID: [id number] Author: Franca Gonzales RN Service: Nursing Author Type: Registered Nurse Type: Nursing Progress Note Filed: 02/18/2018 6:51 PM Note Text: Nursing Progress Note Patient Name: Neil Mendenhall Patient Location: [facility] OR POOL/[facility] OR POOL Daily Note:Patient's family paged at this time that surgery began at 1747 and that everything is going well. Patient's family paged again at this time that patient still in surgery and everything is going well. Patient's family paged at this time that we're finishing surgery. This note was completed by: Franca Gonzales RN ANES PREOP Observed: 02/18/2018 Status: COMPLETED Source: [place] 4:59 PM [facility] OTHER CAMPUS REPOSITORY O ID: [id number] Author: Gonzales Brock Service: Anesthesiology Author Type: Anesthesiologist Type: Anesthesia PreOp Filed: 02/18/2018 5:01 PM Note Text: ANESTHESIOLOGY DAY OF SURGERY NOTE SERVICE DATE: 02/18/2018 SERVICE TIME: 5:00 PM : 1965 Procedure(s) (LRB): AMPUTATION BELOW KNEE EXTREMITY LOWER (Left) Surgeon(s): Flo Aragon Estimated body mass index is 27.83 kg/m? as calculated from the following: Height as of 02/14/18: 167.6 cm (5' 6). Weight as of 02/14/18: 78.2 kg (172 lb 6.4 oz). Most recent hematocrit and potassium results: Hematocrit 40.9 02/05/2018 Hematocrit (POCT) 33 11/11/2017 Potassium 4.6 02/05/2018 Potassium (POCT) 3.4 11/11/2017 ANES DOS/PREOP NOTE: Vitals: 02/18/18 1532 BP: 142/76 Pulse: 80 Resp: 18 Temp: 36.8 ?C (98.2 ?F) SpO2: 98% ACTIVE PROBLEM LIST Bipolar affective Carotid Artery Disease (Hcc) PAD (peripheral artery disease) Postoperative Pain Arterial Occlusion, Lower Extremity (Hcc) Bipolar disorder (HCC) Hyperlipidemia Neuropathic Pain Aissatou (Obstructive Sleep Apnea) Smoker Thrombus PAST MEDICAL HISTORY Diagnosis Date - Carotid artery disease (HCC) PAST SURGICAL HISTORY Procedure Laterality Date - ANGIO TRANSLUM BALL ANGIO ANGELO 2008 [id number] No family history on file. Social History: Social History Substance Use Topics - Smoking status: Former Smoker Packs/day: 0.50 Years: 25.00 Types: Cigarettes Quit date: 09/01/2009 - Smokeless tobacco: Never Used Comment: currently using electronic cigarette - Alcohol use No No current facility-administered medications on file prior to encounter. Current Outpatient Prescriptions on File Prior to Encounter: oxyCODONE-acetaminophen (PERCOCET) 5-325 mg tablet Take 1 tablet by mouth every 6 hours as needed for Pain for up to 5 days. acetaminophen (TYLENOL) 325 mg tablet Take 2 tablets by mouth every 4 hours as needed for Pain or Fever. NIFEdipine ER (PROCARDIA XL) 30 mg 24 hr tablet Take 1 tablet by mouth once daily. aspirin 81 mg chewable tablet Take 1 tablet by mouth once daily. lamoTRIgine (LAMICTAL) 200 mg tablet Take 200 mg by mouth once daily. aripiprazole(ABILIFY 20 MG TAB) Take one(1) tablet daily. apixaban (ELIQUIS) 2.5 mg tab tab(s) 10mg twice a day for 1 [id number] twice a day subsequently (Patient taking differently: 5 mg. 10mg twice a day for 1 week 5mg twice a day subsequently ) docusate sodium (COLACE) 100 mg capsule Take 1 capsule by mouth twice daily. Cholecalciferol, Vitamin D3, 5,000 unit cap Take 5,000 Units by mouth once daily. Current Facility-Administered Medications: lactated ringers infusion 100 mL/hr INTRAVENOUS CONTINUOUS Bruce Lucianfstra Last Rate: 100 mL/hr at 02/18/18 1540 100 mL/hr at 02/18/18 1540 Allergies: ALLERGIES Allergen Reactions - Horizant [Gabapenti* Mental Status Change - Wellbutrin [Bupropi* Other: See Comments Took med on Wednesday Woke up 3 days later in hospital DOS EXAM: Adequate NPO Status: Yes Anesthetic Risks, Benefits, Alternatives, Personnel and Consent Discussed: Yes Patient agrees to proceed: Yes Previous Anesthesia: No history of adverse event Airway Assessment: MP 2; Neck ROM: Full ROM without neurologic symptoms; Airway Evaluation: No significant abnormalities Symptoms of Sleep Apnea: yes, non compliant Dentition: Edentulous Additional Physical Exam: Lungs: Lungs clear to auscultation. Good diaphragmatic excursion. Cardiac: normal S1 and S2; no rubs, no murmurs, and no gallops Additional Pertinent Findings: N/A Blood Products: Will accept Blood/Blood Products Anesthetic Plan: General Anesthetic Monitoring: Standard ASA Monitors Pain Management Plan: Parenteral or Oral, Peripheral Nerve Block and Peripheral Nerve Catheter ASA Class: 3 Other Medical Problems: PAD, AISSATOU, COPD, carotid stenosis, smoker, bipolar disorder Chronic Beta Juan medication administered within 24 hours: N/A I have interviewed and examined the patient. I have reviewed the medical record and/or the pre-anesthesia evaluation, pertinent labs, and test results. Significant changes in the patient's condition since the History and Physical, not otherwise documented in primary service progress notes: No This contains updated information obtained within 48 hours of Surgery/Procedure. SIGNATURE: Gonzales Gutiérrez MD PATIENT NAME: Neil Mendenhall DATE: February 18, 2018 TIME: 5:00 PM CSN: [id number] TYPE AND SCREEN Collected: 02/18/2018 Status: F Source: [place] 4:15 PM [facility] OTHER [place] REPOSITORY TYPE CODE TESTS RESULT OUT OF REFERENCE UNITS RANGE LAB %ABR A ABO/RH(D) NEGATIVE LAB % Antibody NEG Screen Performed By: #### TSCR #### [place] [address] NURSING PROG Observed: 02/18/2018 Status: COMPLETED Source: [place] 3:53 PM [facility] REPOSITORY HNO ID: [id number] Author: Ariane JeffriesRn) SARAH Cruz Service: Nursing Author Type: Registered Nurse Type: Nursing Progress Note Filed: 02/18/2018 3:54 PM Note Text: 1600 Family vs. Pt crying, c/o severe left foot pain. Med with morphine as ordered. Updated on time for OR. Type and screen sent to lab. No orders or consent as yet. OR notified. SURGICAL PATHOLOGY Observed: 02/18/2018 Status: F Source: [place] 12:00 AM [facility] REPOSITORY Specimen originated from [facility] Specimen #: [id number] Submitting Physician: FLO ARAGON FINAL DIAGNOSIS Left leg, below-knee amputation - Gangrenous and suppurative necrosis of skin and subcutaneous tissue. - Acute osteomyelitis. - Medial calcification of large arteries. Tyrell Silva M.D. (Electronic Signature) SPECIMEN SUBMITTED A: LEFT AMPUTATION BELOW THE KNEE CLINICAL DATA PERIPHERAL ARTERY DISEASE GROSS DESCRIPTION A. Received fresh labeled as left amputation [id number] is a left [id number] amputation specimen which measures 37 cm from resection margin to heel, by 22.5 cm from heel to first toe. The skin and soft tissue resection margins are grossly viable. The skin surface is alexis-white and wrinkled and no lesions or ulcers are identified. Within the mid aspects of the leg are a circumferential tattoo marking which is green to black in color. On further inspection, a medial well-healed linear scar is identified measuring 4 x 0.2 cm. This is 5 cm from the skin and soft tissue margin. All toes are present and toe #2 reveals a toenail and surrounding soft tissue which are black firm and appear mummified. The bone underlying this region appears focally involved and dusky in appearance. Sectioning of the vasculature reveals that the posterior tibial vessel is approximately 10% stenosis and no evident calcifications. The fibular vessels reveal approximately 10% stenosis and mild calcifications. The anterior tibial vessels reveal approximately 10% stenosis and no evident calcifications. The deep soft tissues appear grossly unremarkable and no other distinct areas of interest can be identified. Locker Room Supervisor sections are submitted as follows: A1 skin and soft tissue resection margin shave, A2 linear scar, A3 distal second toe with bone following light decalcification, A4 posterior tibial vessels, A5 fibular vessels, A6 anterior tibial vessels. KAITLYNN/chrissie 02/21/2018 Gross examination performed at [facility] [address] Date of Report: 02/23/2018 Date of Procedure: 02/18/2018 Date of Receipt: 02/21/2018 Submitted by: FLO ARAGON Location: [id number] Diagnostic interpretation performed at [facility] [place] [address]. Performed By: #### JOSE #### [address] [address] [place] [address] HOSP Observed: 02/16/2018 Status: COMPLETED Source: [place] 12:00 AM [facility] OTHER CAMPUS REPOSITORY Patient:Neil Mendenhall MRN: <[id number]> Height:5' 6(1.676 m) Weight:172 lb 6.4 oz (78.2 kg) Outpatient Medications as of 02/18/18: pravastatin (PRAVACHOL) 80 mg tablet oxyCODONE-acetaminophen (PERCOCET) 5-325 mg tablet acetaminophen (TYLENOL) 325 mg tablet apixaban (ELIQUIS) 2.5 mg tab tab(s) docusate sodium (COLACE) 100 mg capsule NIFEdipine ER (PROCARDIA XL) 30 mg 24 hr tablet Cholecalciferol, Vitamin D3, 5,000 unit cap aspirin 81 mg chewable tablet lamoTRIgine (LAMICTAL) 200 mg tablet aripiprazole(ABILIFY 20 MG TAB) Admission/Clinic Administered Medications as of 02/18/18: lactated ringers infusion Problem List: Bipolar affective [F31.9] Carotid artery disease (HCC) [I77.9] PAD (peripheral artery disease) [I73.9] Postoperative pain [G89.18] Arterial occlusion, lower extremity (HCC) [I70.209] Bipolar disorder (HCC) [F31.9] Hyperlipidemia [E78.5] Neuropathic pain [M79.2] AISSATOU (obstructive sleep apnea) [G47.33] Smoker [F17.200] Thrombus [I82.90] Allergies: Horizant [Gabapentin Enacarbil] Wellbutrin [Bupropion Hcl] Date Verified: 02/18/18 Lab Values Lab Value Units Date High Low POTA* 4.6 mmol/L 02/05/2018 5.0 3.5 CHRISTEL* 40.9 % 02/05/2018 46.0 36.0 Progress Notes ([facility]): Ada Munroe 02/16/2018 2:40 PM Signed Called patient to reschedule surgery. She didn't not discontinue Eliquis. She is aware of date, time, location and instructions. Progress Notes ([facility]): Michelle Navarrete 02/15/2018 12:30 PM Signed Patient called [facility] office asking when her surgery was scheduled. I advised patient that surgery was scheduled on 02/17/2018 at [facility]. Advised patient to be NPO after midnight patient expressed understanding NURSING PROG Observed: 02/15/2018 Status: COMPLETED Source: [place] 11:14 AM [facility] OTHER CAMPUS REPOSITORY HNO ID: [id number] Author: Shazia JeffriesRnMahsa Hurd RN Service: Neurosurgery Author Type: Registered Nurse Type: Nursing Progress Note Filed: 02/15/2018 11:15 AM Note Text: PACC Nurse Progress Note History AND Physical: PACC Visit Date: NA Original HANDP Date: N/A ED visit Date: 02-05-18 Dr Vazquez Outside HANDP Scanned Date: N/A Labs Within Last 6 Months: CBC: 02-05 BMP/CMP: 02-05 PT: 02-05 Imaging Within Last 12 Months: N/A Cardiac Testing: EKG in last 12 Months: Yes: Date: 11-10-17, Comment: epic BMI Percentile (PEDS): N/A Risk Assessment: N/A Anesthesia Review: N/A Narrative: N/A Pre-op Considerations: No TANDS ordered Chart Check: COMPLETED Shazia Hurd RN February 15, 2018 11:14 AM NURSING PROG Observed: 02/14/2018 Status: COMPLETED Source: [place] 3:08 PM [facility] OTHER CAMPUS REPOSITORY HNO ID: [id number] Author: Colten JeffriesRnMahsa Patel RN Service: Nursing Author Type: Registered Nurse Type: Nursing Progress Note Filed: 02/14/2018 3:36 PM Note Text: Nursing Progress Note Topic of Note: Incidental Neil Mendenhall [id number] Discharge instructions reviewed with patient and sister Mckinley, Oxycodone Rx given. Iinstructions for follow up and medications. by Dr Aragon , written instructions of same given to patient. No questions at this time 1500 Patient walked to bathroom without difficulty , IV discontinued site clear 1520 Discharged home to sister Mckinley via wheelchair to car. This note was completed by: Colten Patel RN NURSING PROG Observed: 02/14/2018 Status: COMPLETED Source: [place] 10:43 AM [facility] OTHER CAMPUS REPOSITORY HNO ID: [id number] Author: Shanice JeffriesRn) King RN Service: (none) Author Type: Registered Nurse Type: Nursing Progress Note Filed: 02/14/2018 10:44 AM Note Text: dr aragon at bedside spoke to patient and sister discussed options for treatment on bedrest for 6 hours and anticipate discharge NURSING PROG Observed: 02/14/2018 Status: COMPLETED Source: [place] 10:12 AM [facility] REPOSITORY HNO ID: [id number] Author: Shanice Loza (Rn) King RN Service: (none) Author Type: Registered Nurse Type: Nursing Progress Note Filed: 02/14/2018 10:13 AM Note Text: resting easily aroused pulses doppled left post tibial and right dp. right groin unchanged NURSING PROG Observed: 02/14/2018 Status: COMPLETED Source: [place] 9:42 AM [facility] REPOSITORY HNO ID: [id number] Author: Shanice Loza (Rn) King RN Service: (none) Author Type: Registered Nurse Type: Nursing Progress Note Filed: 02/14/2018 9:44 AM Note Text: resting quietly sister at bedside right groin remains soft no complaints offered NURSING PROG Observed: 02/14/2018 Status: COMPLETED Source: [place] 9:22 AM [facility] REPOSITORY HNO ID: [id number] Author: Berkley (Rn) SARAH Miranda Service: Nursing Author Type: Registered Nurse Type: Nursing Progress Note Filed: 02/14/2018 9:25 AM Note Text: Received from the vascular lab. VSS. Rt groin drsg dry and intact. No hematoma or bleeding. Rt pedal doppled. Lt doppled. Sister @ bedside. OPERATIVE NO Observed: 02/14/2018 Status: COMPLETED Source: [place] 9:06 AM [facility] REPOSITORY HNO ID: [id number] Author: Flo Aragon Service: Vascular Surgery Author Type: Physician Type: Operative Report Filed: 02/14/2018 9:10 AM Note Text: OPERATIVE/PROCEDURE REPORT LOG ID: [id number] Surgery/Procedure Date: 02/14/2018 Incision/Procedure Start Time: 805 Incision Close/Procedure End Time: 830 Surgeon(s)/Proceduralist(s) and Swimmer(s): Surgeon(s) and Role: * Flo Aragon - Primary * Shandra Ba - Resident PROCEDURE INDICATION: 52 year old female with lupus anticoagulant positive, occlusion of the left?lower extremity superficial femoral artery, she had a common femoral to above knee popliteal bypass as well as PT thrombectomy after attemting an endovascular repair, but the distal PT artery with hyperplasi which was nearly obliterating the lumen and unable to be opened up. The LLE fem-ak pop ptfe bypass was maintained open until recently, when it occluded despite eliquis, aspirin, plavix. She now presents for angiogram to see if there is any distal outflow or distal target for revascularization INTERVENTIONAL PROCEDURE: Ultrasound-guided right common femoral access Aorta and pelvic angiogram left lower extremity angiogram Anesthesia: Procedural Sedation PROCEDURAL DETAILS The patient was taken to the mill labor supervisor and laid supine on the table. After time-in and under continuous oxygen and monitoring, IV analgesia and sedation were given. Moderate sedation consisting of continuous ECG, pulse oxymetry, cardiopulmonary monitoring, IV analgesia and sedation was performed by the nurse, overseen by the performing physician(s). Bilateral groins were prepped and draped in the usual sterile fashion. Using local anesthesia, ultrasound guidance, and a micropuncture system, the right gas operation manager was accessed. A 4-[place] Island[place] sheath was exchanged into the INTERNET ASSESSOR using and a Contra catheter was advanced above the renal arteries. Angiography with runoff was performed with selected DSA runs done stepwise to the foot. This showed a patent bilateral renals and aortoiliac. She had a patent common femoral and profunda with occlusion at the origin of her SFA and the ptfe bypass. She had reconstitution of her above knee popliteal artery and three vessel runoff to her ankle, with occlusion of all three vessels, and 1mm size diminutive pt flow from the below the medial malleolus down. The wires and catheters were removed and the sheaths was removed. Pressure was held for hemostasis. Sterile dressings were applied. The patient tolerated the procedure well. Pre-Op/Pre-Procedure Diagnosis: peripheral vascular disease Post-Op/Post-Procedure Diagnosis: same Estimated Blood Loss: 0 ml Specimens: None Implantable Devices: None Drains: None Complications: None The primary surgeon/proceduralist performed the procedure with assistance. SIGNATURE: Flo Aragon MD PATIENT NAME: Neil Mendenhall DATE: 02/14/2018 TIME: 9:06 AM PAGER/CONTACT #: [phone] OP NOT Observed: 02/14/2018 Status: COMPLETED Source: [place] 8:56 AM [facility] OTHER CAMPUS REPOSITORY HNO ID: [id number] Author: Shandra Ba MD Service: General Surgery Author Type: Resident Type: Brief Op Note Filed: 02/14/2018 1:34 PM Note Text: BRIEF OPERATIVE / PROCEDURE NOTE LOG ID: [id number] Surgery/Procedure Date: 02/14/2018 Incision/Procedure Start Time: 8:05 AM Incision Close/Procedure End Time: 8:30 AM Surgeon(s)/Proceduralist(s) and Swimmer(s): Surgeon(s) and Role: * Flo Aragon - Primary No Additional Staff Shandra Ba, Resident, Assisting Procedure(s): Left lower extremity angiogram BENITA Angio: Access: Right groin, 4Fr sheath Closure: None Contrast: 65cc Fluorotime: 4 min, 37 sec, 78 Gy Anesthesia: Procedural Sedation ASA Class: ASA Class:: II Findings: 1mm vessels in foot Pulses: LLE: Monophasic DP Medications: Antiplatelet: Yes - Medication: ASA, Plavix Dose: 75 mg daily Anticoagulation: Yes- Eliquis. 5mg BID Statin: Yes - Medication: Pravastatin Dose: 80mg Beta Juan: No - Reason: not indicated Estimated Blood Loss: 5 mls Specimens: None Complications: None Pre-Op/Pre-Procedure Diagnosis: Left lower extremity chronic toe ischemia Post-Op/Post-Procedure Diagnosis: Same SIGNATURE: Shandra Ba MD PATIENT NAME: Neil Mendenhall DATE: February 14, 2018 TIME: 8:56 AM PAGER/CONTACT #: [phone] EKG (AK,AV,EU,FV,HL,JILLIAN,MM,SP) Observed: Status: F Source: [place] 02/14/2018 7:13 AM [facility] OTHER CAMPUS REPOSITORY NAME : NEIL MENDENHALL PID : [id number] : 1965 Gender : Female Race : ORD : [id number] Procedure Date : Feb 14 2018 07:13:34 Edit Date : Feb 16 2018 07:35:32 Diagnosis:Sinus rhythm Borderline prolonged [place] interval Borderline ECG Confirmed by KEE NAIR MD ([id number]) on 02/16/2018 7:35:28 AM Ventricular Rate : 79 BPM Atrial Rate : 79 BPM P-R Interval : 204 ms QRS Duration : 87 ms Q-T Interval : 409 ms QTC Calculation(Bezet) : 469 ms P [place] : 42 degrees R [place] : 44 degrees T [place] : 51 degrees Test Reason : Pre OP Location : 400 : FVEKG 6 Overread By : KEE NAIR MD Edited By : KEE NAIR MD Referred By : DHEERAJ TRUJILLO Acquired by : , HISTORY PHYSICAL Observed: 02/14/2018 Status: COMPLETED Source: [place] 7:05 AM [facility] OTHER [facility] REPOSITORY O ID: [id number] Author: Abhijit Palacios Service: Cardiovascular Disease Author Type: Physician Swimmer Type: HANDP Filed: 02/14/2018 7:14 AM Note Text: UPDATED PROCEDURAL SEDATION HISTORY AND PHYSICAL EXAMINATION SERVICE DATE: 02/14/2018 SERVICE TIME: 7:06 AM PHYSICAL EXAM MUST BE COMPLETED ON ADMISSION The History and Physical (completed in the past 30 days) has been reviewed and the patient has been examined. The contents accurately reflect the patient's condition with the following additions or revisions since the HANDP was completed. This HANDP can be found in the Electronic Medical Record.01/18/18 Examination indicates that patient is known with chronic left leg PVD presents with small dry gangren of left second toe which is very tender Provisional Diagnosis/Treatment Plan: Abdominal Aortagram with Runoff ASA Class: ASA Class:: Patient with mild systemic disease Patient Vitals for the past 24 hrs: BP Temp Temp src Pulse Resp SpO2 Height Weight 02/14/18 0627 142/85 36.2 ?C (97.2 ?F) Temporal Art 83 18 98 % 167.6 cm (5' 6) 78.2 kg (172 lb 6.4 oz) AIRWAY: Airway Visualization of Uvula: Yes Mouth opening greater than 2 fingerbreadths: Yes Neck Full Range of Motion: Yes LUNGS: Lungs clear to auscultation, Good diaphragmatic excursion SLEEP APNEA: No CARDIAC: Normal S1 and S2; no rubs, murmurs, or gallops CAROTIDS: Without bruit LE PULSES: dopplered at right , only weak by directional at left posterior tibialis. History of TIA: No History of HI: No Diabetes: No SEDATION GOAL: Moderate DATA: Diagnostic tests reviewed for today's visit: Most recent EKG Most recent labs POC INR: CBC: Recent Labs 02/05/18 1340 WBC 7.79 RBC 4.84 HB 13.4 HCT 40.9 PLT 346 MCV 84.5 MCH 27.7 MPV 9.6 Coags: Recent Labs 02/05/18 1340 INR <0.9* BMP: Recent Labs 02/05/18 1340 NA 137 K 4.6 CHLOR 102 CO2 21* BUN 11 CREAT 0.79 GLUC 100 SIGNATURE: Abhijit Palacios PA-C PATIENT NAME: Neil Mendenhall DATE: February 14, 2018 TIME: 7:06 AM PAGER: [phone] [facility] Observed: 02/10/2018 Status: COMPLETED Source: [place] 12:00 AM [facility] OTHER [facility] REPOSITORY Patient:Neil Mendenhall MRN: <[id number]> Height:5' 6(1.676 m) Weight:172 lb 6.4 oz (78.2 kg) Outpatient Medications as of 02/14/18: acetaminophen (TYLENOL) 325 mg tablet apixaban (ELIQUIS) 2.5 mg tab tab(s) docusate sodium (COLACE) 100 mg capsule nitroglycerin (NITRO-BID) 2 % ointment NIFEdipine ER (PROCARDIA XL) 30 mg 24 hr tablet Cholecalciferol, Vitamin D3, 5,000 unit cap aspirin 81 mg chewable tablet pravastatin (PRAVACHOL) 20 mg tablet lamoTRIgine (LAMICTAL) 200 mg tablet aripiprazole(ABILIFY 20 MG TAB) Admission/Clinic Administered Medications as of 02/14/18: Patient has no admission medications. Problem List: Bipolar affective [F31.9] Carotid artery disease (HCC) [I77.9] PAD (peripheral artery disease) [I73.9] Postoperative pain [G89.18] Arterial occlusion, lower extremity (HCC) [I70.209] Bipolar disorder (HCC) [F31.9] Hyperlipidemia [E78.5] Neuropathic pain [M79.2] AISSATOU (obstructive sleep apnea) [G47.33] Smoker [F17.200] Thrombus [I82.90] Allergies: Horizant [Gabapentin Enacarbil] Wellbutrin [Bupropion Hcl] Date Verified: 02/14/18 Lab Values Lab Value Units Date High Low POTA* 4.6 mmol/L 02/05/2018 5.0 3.5 CHRISTEL* 40.9 % 02/05/2018 46.0 36.0 Progress Notes ([facility]): Michelle Kuo Supv 02/09/2018 1:41 PM Signed Patient here today for vascular studies and is requesting pain medication to get her through until her follow up on 02/15/2018. Ondina Ambrosio RN 02/09/2018 2:58 PM Signed Returned call to Neil she states her pain is 8-10/10 ,sharp pain left calf and can be excruciating in left toe was given 12 Percocet when in the ED on 02/05 - she took her last tablet this morning -states pain is not relieved ,but does make it somewhat tolerable Informed will message Dr.Miler Ada Hinojosa [facility] 02/10/2018 8:43 AM Signed Called and spoke to Neil. She is aware of date, time, location and fasting instructions for procedure. She knows we will call with blood thinner instructions. Contact number given [phone]. Ondina Ambrosio RN 02/10/2018 3:[address] Aragon Stop eliquis x48hrs beforehand. Continue Plavix and aspirin. Called and informed Neil verbalized understanding Progress Notes ([facility]): Flo Aragon MD 01/18/2018 2:09 PM Signed [facility] ESTABLISHED PATIENT NOTE January 18, 2018 History obtained from: record in [facility], patient, friend ? 52 year old female with ? Surgery/Procedure Date:?11/11/2017? Surgeon(s)/Proceduralist(s) and Swimmer(s):???* Flo Aragon - Primary Procedure(s): left?common femoral to above knee popliteal bypass with 7mm ringed PTFE Left distal PT exposure by the medial malleolus ? occlusion of the left?lower extremity superficial femoral artery presents for common femoral to above knee popliteal bypass as well as PT thrombectomy after attemting an endovascular repair Distal PT artery with hyperplasi which was nearly obliterating the lumen She does not have any discernible outflow down her leg to the foot Despite this, the bypass has managed to keep things salvageable for her Complains of tingling pain in her leg and foot Digit 2 distal tip with dry gangrene ? 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 acetaminophen (TYLENOL) 325 mg tablet Take 2 tablets by mouth every 4 hours as needed for Pain or Fever. apixaban (ELIQUIS) 2.5 mg tab tab(s) 10mg twice a day for 1 [id number] twice a day subsequently docusate sodium (COLACE) 100 mg capsule Take 1 capsule by mouth twice daily. clopidogrel (PLAVIX) 75 mg tablet Take 1 tablet by mouth once daily. nitroglycerin (NITRO-BID) 2 % ointment Apply 0.5 g as directed twice daily. Apply in the morning and remove at night NIFEdipine ER (PROCARDIA XL) 30 mg 24 hr tablet Take 1 tablet by mouth once daily. Cholecalciferol, Vitamin D3, 5,000 unit cap Take 5,000 Units by mouth once daily. pregabalin (LYRICA) 225 mg capsule Take 225 mg by mouth twice daily. aspirin 81 mg chewable tablet Take 1 tablet by mouth once daily. pravastatin (PRAVACHOL) 20 mg tablet Take 20 mg by mouth once daily. lamoTRIgine (LAMICTAL) 200 mg tablet Take 200 mg by mouth once daily. aripiprazole(ABILIFY 20 MG TAB) Take one(1) tablet daily. No current facility-administered medications for this visit. Tob: Tobacco Use: .5 packs/day, for 25 years. Quit 09/01/2009. Types: Cigarettes (currently using electronic cigarette) Focused Physical Exam: BP 119/67 Pulse 70 Wt 168 lb 9.6 oz (76.5kg) LMP 08/07/2011 Nad, aANDox3 rrr Non-labored Soft, ntnd LLE digit 2 tip dry gangrene. Well-demarcated. Tender. No surrounding erythema LLE digit 4 purplish discoloration, nontender. L groin nd L ankle incision cdi, well healed RLE digit 1-4 purplish discoloration Labs: Creatinine Date Value Ref Range Status 11/23/2017 0.79 0.70 - 1.40 mg/dL Final Comment: Reviewed 11/15/2017 0.63 (L) 0.70 - 1.40 mg/dL Final 11/14/2017 0.59 (L) 0.70 - 1.40 mg/dL Final 11/13/2017 0.69 (L) 0.70 - 1.40 mg/dL Final Cholesterol, Total Date Value Ref Range Status 03/27/2010 229 (H) 100 - 199 mg/dL Final HDL Cholesterol Date Value Ref Range Status 03/27/2010 53 (L) >55 mg/dL Final LDL Cholesterol Date Value Ref Range Status 03/27/2010 153 (H) 60 - 129 mg/dL Final Triglyceride Date Value Ref Range Status 03/27/2010 117 30 - 149 mg/dL Final Glucose Date Value Ref Range Status 11/23/2017 113 (H) 65 - 100 mg/dL Final No results found for: HBA1C Impression and plan: 52F s/p LLE fem-ak pop w ptfe for pad, lupus anticoagulant positive ? Fu 2 months w areli/pvr and LLE art duplex Continue anti-coagulation w eliquis. Also on asa/plavix High risk for limb loss due to poor outflow ? Understands need for best medical care and continued follow up for this problem including after any intervention/operation for it. Counseled regarding above and reviewed signs and symptoms of peripheral vascular disease as a marker of overall cardiovascular health at length ? Hypertension: -Blood pressure control. Target <140/90, <130/85 for high risk, 120/80 normal Antiplatelet: -cont?asa/plavix Hyperlipidemia: -cont statin with goal TC < 200, TG < 150, HDL > 45 for men and >55 for women, LDL < 100 or <70 for high risk Physical inactivity: regular walking exercise with goal 30 minutes continuously @ 2-3mph for minimum 5 days/week. ? I spent more than 50% of the visit counseling the patient on the plan and treatment options. ?Face to Face time was 15?minutes. Flo Aragon MD Staff, Vascular Surgery January 18, 2018 2:07 PM CONSULT Observed: 02/05/2018 Status: COMPLETED Source: [place] 3:23 PM [facility] OTHER [facility] REPOSITORY O ID: [id number] Author: Betsey Dial Service: Vascular Surgery Author Type: Resident Type: Consults Filed: 02/05/2018 8:45 PM Note Text: [facility] INITIAL CONSULT Service Date: 02/05/2018 Admit Date: 02/05/2018 Service Time: 3:00 pm LOS: 0 Requesting Provider: Luis A Vazquez MD Vascular Physician: Herson Nam MD Subjective Chief Complaint: left leg and foot pain HPI: Neil Mendenhall is a 52 year old White female with PAD s/p femoral popliteal bypass presents to ED with cramping pain and pallor in left lower leg and foot. Location: left leg and foot Severity: severe Duration: > 24 hours PAST MEDICAL HISTORY Diagnosis Date - Carotid artery disease (HCC) PAST SURGICAL HISTORY Procedure Laterality Date - ANGIO TRANSLUM BALL ANGIO ANGELO 2008 [id number] No family history on file. Social History Substance Use Topics - Smoking status: Former Smoker Packs/day: 0.50 Years: 25.00 Types: Cigarettes Quit date: 09/01/2009 - Smokeless tobacco: Never Used Comment: currently using electronic cigarette - Alcohol use No (Not in a hospital admission) No current hospital medications on file. Medication and Non-Pharmacologic VTE Prophylaxis/Anticoagulants VTE Prophylaxis: VTE prophylaxis appropriate ALLERGIES Allergen Reactions - Horizant [Gabapenti* Mental Status Change - Wellbutrin [Bupropi* Other: See Comments Took med on Wednesday Woke up 3 days later in hospital COMPLETE REVIEW OF SYSTEMS CONSTITUTIONAL: No weight loss, malaise or fevers. HEENT: Negative for frequent or significant headaches, No changes in hearing or vision, no nose bleeds or other nasal problems. RESPIRATORY: Negative for cough, wheezing, or shortness of breath CARDIOVASCULAR: Negative for chest pain, leg swelling or palpitations GI: Negative for abdominal discomfort, blood in stools or black stools or change in bowel habits. : No history of dysuria, frequency, or incontinence and No difficulty urination, nocturia >1 times per night or hematuria. MUSCULOSKELETAL: Negative for joint pain or swelling, back pain or muscle pain. ENDOCRINE: Negative for cold or heat intolerance, polyuria, polydipsia and goiter HEMATOLOGIC/LYMPHATIC: Negative for prolonged bleeding, bruising easily or swollen nodes. NEUROLOGIC: No history or headaches, syncope, paralysis, seizures or tremors. INTEGUMENTARY: Negative for lesions, rash, and itching. Objective PHYSICAL EXAM Physical Exam Performed Patient Vitals for the past 24 hrs: BP Temp Pulse Resp SpO2 Height Weight 02/05/18 1516 128/79 - 81 18 97 % - - 02/05/18 1341 124/71 - 82 18 97 % - - 02/05/18 1314 120/70 - 83 18 97 % - - 02/05/18 1250 121/64 36.9 ?C (98.4 ?F) 85 16 99 % 167.6 cm (5' 6) 76.2 kg (168 lb) No intake or output data in the 24 hours ending 02/05/182022 CONSTITUTIONAL: Well developed NEUROLOGIC/PSYCHIATRIC: Oriented to time, place AND person HEENT: PERRLA LUNGS: Clear HEART: Regular rate AND rhythm ABDOMEN: Soft, Round, Non-tender and Bowel sounds present INTEGUMENTARY: Wound - No SURGICAL SITES: None MUSCULOSKELETAL: No deformities and No joint deformities EXTREMITIES: right: normal. Left: pale, cold, tender to palpation. Gangrene on third toe. Pulses/Signals: Carotid Brachial Radial Ulnar Femoral Popliteal Dorsalis Pedis Posterior Tibial Peroneal Right Palpable +2 Palpable +2 Palpable +2 Palpable +2 Palpable +2 Palpable +2 Palpable +2 Palpable +2 Monophasic Signal Left Palpable +2 Palpable +2 Palpable +2 Palpable +2 Palpable +2 Palpable +2 Monophasic Signal Monophasic Signal - Does the patient have critical limb ischemia, rest pain, tissue loss or gangrene?: Yes W: Wound/ Clinical Category SVS Grades for rest pain and wounds tissue loss (ulcers and gangrene) 2 (moderate, major tissue loss) deeper ulcer with exposed bone, joint or tendon; shallow heel ulcer; gangrenous changes limited to digits; salvageable with multiple (>3) digital amputations or standard TMA +/- skin coverage I: Ischemia Hemodynamics/perfusion: Measure TP or TcpO2 if ARELI incompressible (> 1.3) SVS Grades: 1 (mild, AREIL) - >/- 0.6 - 0.79; Ankle systolic pressure - 70-100mmHg; TP, TcPO2 - 40-59mmHg FI: Foot Infection SVS Grades: 0 (none, uninfected) none of the following present: local swelling or induration, erythemia > 0.5 to </- 2cm around ulcer, local tenderness or pain,local warmth, purulent discharge WIFI: Wound: 2 Ischemia: 1 Foot Infection: 0 DATA: Laboratory: Recent Labs 02/05/18 1340 WBC 7.79 HB 13.4 HCT 40.9 PLT 346 Recent Labs 02/05/18 1340 NA 137 K 4.6 BUN 11 CREAT 0.79 GLUC 100 Recent Labs 02/05/18 1340 INR <0.9* Impression/Recommendations Impression and Plan:: Neil Mendenhall is a 52 year old White female with PAD s/p femoral popliteal bypass and exacerbation of PAD. Thorough vascular evaluation performed. Physical exam showed diminished but present blood flow to left lower extremity. No concern for acute ischemic process, patient agrees on outpatient follow-up with Dr. Hinojosa. No problems updated. SIGNATURE: Betsey Dial MD PATIENT NAME: Neil Mendenhall DATE: February 05, 2018 TIME: 8:23 PM PAGER/CONTACT #: [phone] ETX#[id number] ED NOTE Observed: 02/05/2018 Status: COMPLETED Source: [place] 3:22 PM [facility] OTHER [facility] REPOSITORY HNO ID: [id number] Author: Mario (Rn) SARAH Jauregui Service: (none) Author Type: Registered Nurse Type: ED Notes Filed: 02/05/2018 3:23 PM Note Text: Pt is discharged from the ED with a stable gait and discharge instructions in hand. Pt has sister at her side. CBC AND DIFFERENTIAL Collected: 02/05/2018 Status: F Source: [place] 1:40 PM [facility] OTHER CAMPUS REPOSITORY TYPE CODE TESTS RESULT OUT OF REFERENCE UNITS RANGE LAB WBC 3.70-11.00 k/uL WBC 7.79 LAB RBC 3.90-5.20 m/uL RBC 4.84 LAB HGB 11.5-15.5 g/dL Hemoglobin 13.4 LAB HCT 36.0-46.0 % Hematocrit 40.9 LAB MCV 80.0-100.0 fL MCV 84.5 LAB MCH 26.0-34.0 pG MCH 27.7 LAB MCHC 30.5-36.0 g/dL MCHC 32.8 LAB RDWCV 11.5-15.0 % RDW-CV 14.2 LAB PLTCT 150-400 k/uL Platelet Count 346 LAB MPV 9.0-12.7 fL MPV 9.6 LAB NEUTS % Neut% 54.2 LAB AANEUT 1.45-7.50 k/uL Abs Neut 4.22 LAB LYMPHS % Lymph% 40.7 LAB AALYMP 1.00-4.00 k/uL Abs Lymph 3.17 LAB MONOS % [place]% 2.8 LAB AAMONO <0.87 k/uL Abs [place] 0.22 LAB EOS % Eosin% 1.9 LAB AAEOS <0.46 k/uL Abs Eosin 0.15 LAB BASOS % Baso% 0.4 LAB AABASO <0.11 k/uL Abs Baso 0.03 LAB DTYP DTYPE Auto Diff Performed By: #### CBCDIF, PT, BMP #### [facility] [address] [place] [address] PROTIME Collected: 02/05/2018 Status: F Source: [place] 1:40 PM [facility] OTHER CAMPUS REPOSITORY TYPE CODE TESTS RESULT OUT OF RANGE REFERENCE UNITS LAB PSEC 9.7-13.0 sec Low PT Sec 9.6 LAB INR 0.9-1.3 Low PT INR <0.9 Result Comment: Vitamin K Antagonist (VKA) Therapeutic Range: INR 2 to 3 (Target INR of 2.5) Note: For patients treated with VKA drugs, such as warfarin, the [employer] 2012 Guideline recommends a therapeutic INR range of 2 to 3 (target INR of 2.5). This recommendation includes high-risk patients with antiphospholipid syndrome with previous arterial or venous thromboembolism, current-generation mechanical or bioprosthetic aortic heart valve replacement. Note: Patients with mechanical aortic valve replacement and additional risk factors for thromboembolic events (atrial fibrillation, previous thromboembolism, LV dysfunction, hypercoagulable conditions) or an older generation mechanical AVR (i.e., ball in-Cage) or any mechanical MVR should have a INR therapeutic range of 2.5 to 3.5 (target INR of 3). Nimesh GH, et al. Chest 2012, 141:7S-47S Dereck RA et al. [facility] 2017, 70: 252-289 Performed By: #### CBCDIF, PT, BMP #### [facility] [address] [place] [address] BASIC METABOLIC PANL Collected: 02/05/2018 Status: F Source: [place] 1:40 PM [facility] OTHER [place] REPOSITORY TYPE CODE TESTS RESULT OUT OF REFERENCE UNITS RANGE LAB GLU 65-100 mg/dL Glucose 100 LAB BUN 8-25 mg/dL BUN 11 LAB CRET 0.70-1.40 mg/dL Creatinine 0.79 LAB NA 132-148 mmol/L Sodium 137 LAB K 3.5-5.0 mmol/L Potassium 4.6 LAB CL 98-110 mmol/L Chloride 102 LAB CO2 23-32 mmol/L Low CO2 21 LAB AGAP 9-18 mmol/L Anion Gap 14 LAB CA 8.5-10.5 mg/dL Calcium, Total 9.3 LAB GFRAA >60 eGFR- >60 Amer. LAB GFRNAA >60 . eGFR-All Other Races >60 Performed By: #### CBCDIF, PT, BMP #### [facility] [address] [place] [address] ED PROV NOTE Observed: 02/05/2018 Status: COMPLETED Source: [place] 1:32 PM [facility] OTHER CAMPUS REPOSITORY HNO ID: [id number] Author: Luis A Vazquez MD Service: Emergency Medicine Author Type: Physician Type: ED Provider Notes Filed: 02/05/2018 2:57 PM Note Text: ED Provider Note Patient Name: Neil Mendenhall SERVICE DATE: 02/05/18 History Patient presents with: Peripheral Vascular Disease (PVD) Leg Pain: Left [place]: Patient present with complaint of left foot pain, palor, coolness. Onset was 2 day(s) ago, with worsening course since that time. Patient is s/p LLE fem-ak pop bipass for PAD. She follows with Dr. Aragon. She was seen at OSH yesterday and prescribed Percocet for pain. She is also on Eliquis, aspirin and Plavix. Patient denies fever, chills, nausea, vomiting. Symptoms are exacerbated by ambulation. Symptoms are relieved by tried Ibuprofen, Percocet. Associated symptoms include numbness in left heel. HPI PAST MEDICAL HISTORY Diagnosis Date - Carotid artery disease (HCC) PAST SURGICAL HISTORY Procedure Laterality Date - ANGIO TRANSLUM BALL ANGIO ANGELO 2008 [id number] No family history on file. Social History Social History Main Topics - Smoking status: Former Smoker Packs/day: 0.50 Years: 25.00 Types: Cigarettes Quit date: 09/01/2009 - Smokeless tobacco: Never Used Comment: currently using electronic cigarette - Alcohol use No - Drug use: Unknown - Sexual activity: Not on file ALLERGIES Allergen Reactions - Horizant [Gabapenti* Mental Status Change - Wellbutrin [Bupropi* Other: See Comments Took med on Wednesday Woke up 3 days later in hospital Review of Systems Constitutional: Negative for chills and fever. HENT: Negative for rhinorrhea and sore throat. Eyes: Negative for visual disturbance. Respiratory: Negative for cough and shortness of breath. Cardiovascular: Negative for chest pain and leg swelling. Gastrointestinal: Negative for constipation, diarrhea, nausea and vomiting. Genitourinary: Negative for dysuria and frequency. Musculoskeletal: Negative for arthralgias. Skin: Positive for pallor and wound. Negative for rash. Neurological: Positive for numbness. Negative for dizziness, weakness and headaches. Psychiatric/Behavioral: Negative for suicidal ideas. Physical Exam BP 120/70 Pulse 83 Temp 98.4 Resp 18 Ht 5' 6 (1.68m) Wt 168 lb (76.2kg) SpO2 97% LMP 08/07/2011 BMI 27.13 kg/(m2). Physical Exam Constitutional: She appears well-developed. No distress. HENT: Head: Normocephalic. Eyes: Conjunctivae are normal. Neck: Neck supple. Cardiovascular: Normal rate, regular rhythm and intact distal pulses. No murmur heard. Pulmonary/Chest: Breath sounds normal. She exhibits no tenderness. Abdominal: Soft. She exhibits no distension. There is no tenderness. There is no rebound. Musculoskeletal: Normal range of motion. Left lower leg is pale, cool to touch, unable to doppler DP and PT pulses Compartments soft Right PT palp, DP dopplered Neurological: She is alert. Skin: Skin is warm and dry. Necrotic tip second toe, no overlying redness or lymph streaking Psychiatric: She has a normal mood and affect. Nursing note and vitals reviewed. Diagnostic Testing ED Labs Ordered and Reviewed - No data to display Procedures ED Course / Clinical Impression Clinical Impressions as of Feb 06 1456 Peripheral artery disease (HCC) MDM / Disposition / Plan Course: Vital signs were reviewed. Triage records were reviewed. Medical records were reviewed. Nursing notes were reviewed and incorporated. The following medications were administered: Dilaudid : Consent: A procedure or transfusion was performed - No 2:00 PM The patient's case was discussed with vascular surgery resident who will evaluate patient in ED 2:53 PM The patient was seen by vascular surgery resident. 1+ DP pulse noted on doppler, unable to doppler PT. The case was discussed with Herson Mock M.D. And plan will be close outpatient follow up with Dr. Aragon. Outpatient testing as previously scheduled. All questions answered. MDM The patient was DISCHARGED: Counseled patient and family regarding lab results AND suspected diagnosis AND need for follow-up. Discharged home with verbal and written instructions. They were instructed to return as needed for persistent or worsening symptoms or any new concerns. Condition at time of disposition: stable SIGNATURE: MD Luis A Krishna MD 02/05/18 1457 ED NOTE Observed: 02/05/2018 Status: COMPLETED Source: [place] 1:09 PM [facility] REPOSITORY HNO ID: [id number] Author: Mario JeffriesRn) SARAH Jauregui Service: (none) Author Type: Registered Nurse Type: ED Notes Filed: 02/05/2018 1:14 PM Note Text: Pt presented to the ED with decreased blood flow to the L lower extremity. Pt noted a hx of PVD and noted cold and decreased Cap refill to Below the knee of the L leg. Pt stated she started to feel the cold, numbness and tingling getting worse on Wednesday. Pt noted she has had a bypass back in November. Pt upon arrival her L foot was very pale and noted cold to the touch. Doppler was attempted to ascertain pulsed dorsal and tibial areas with no responses noted at this time. Pt was asked to roll the leg/foot outward and the color started to return to the L foot area. Pt denies any diff breathing or cheat pain and noted no abdominal pain and no injuries at this time. Pt's leg distally to the L knee is cold in the calf area and foot. Pt is awaiting the physician and is has the call light in reach. Pt is awaiting results. Pt has family at the bedside. ED NOTE Observed: 02/05/2018 Status: COMPLETED Source: [place] 12:53 PM [facility] REPOSITORY HNO ID: [id number] Author: Celena JeffriesRn) SARAH Wesley Service: (none) Author Type: Registered Nurse Type: ED Notes Filed: 02/05/2018 12:53 PM Note Text: Bed: 54-ED Expected date: Expected time: Means of arrival: Comments: Triage PROGRESS Observed: 01/18/2018 Status: COMPLETED Source: [place] 2:07 PM [facility] REPOSITORY HNO ID: [id number] Author: Flo Aragon Service: (none) Author Type: Physician Type: Progress Notes Filed: 01/18/2018 2:09 PM Note Text: [facility] ESTABLISHED PATIENT NOTE January 18, 2018 History obtained from: record in Epic, patient, friend ? 52 year old female with ? Surgery/Procedure Date:?11/11/2017? Surgeon(s)/Proceduralist(s) and Swimmer(s):???* [facility] - Primary Procedure(s): left?common femoral to above knee popliteal bypass with 7mm ringed PTFE Left distal PT exposure by the medial malleolus ? occlusion of the left?lower extremity superficial femoral artery presents for common femoral to above knee popliteal bypass as well as PT thrombectomy after attemting an endovascular repair Distal PT artery with hyperplasi which was nearly obliterating the lumen She does not have any discernible outflow down her leg to the foot Despite this, the bypass has managed to keep things salvageable for her Complains of tingling pain in her leg and foot Digit 2 distal tip with dry gangrene ? 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 acetaminophen (TYLENOL) 325 mg tablet Take 2 tablets by mouth every 4 hours as needed for Pain or Fever. apixaban (ELIQUIS) 2.5 mg tab tab(s) 10mg twice a day for 1 [id number] twice a day subsequently docusate sodium (COLACE) 100 mg capsule Take 1 capsule by mouth twice daily. clopidogrel (PLAVIX) 75 mg tablet Take 1 tablet by mouth once daily. nitroglycerin (NITRO-BID) 2 % ointment Apply 0.5 g as directed twice daily. Apply in the morning and remove at night NIFEdipine ER (PROCARDIA XL) 30 mg 24 hr tablet Take 1 tablet by mouth once daily. Cholecalciferol, Vitamin D3, 5,000 unit cap Take 5,000 Units by mouth once daily. pregabalin (LYRICA) 225 mg capsule Take 225 mg by mouth twice daily. aspirin 81 mg chewable tablet Take 1 tablet by mouth once daily. pravastatin (PRAVACHOL) 20 mg tablet Take 20 mg by mouth once daily. lamoTRIgine (LAMICTAL) 200 mg tablet Take 200 mg by mouth once daily. aripiprazole(ABILIFY 20 MG TAB) Take one(1) tablet daily. No current facility-administered medications for this visit. Tob: Tobacco Use: .5 packs/day, for 25 years. Quit 09/01/2009. Types: Cigarettes (currently using electronic cigarette) Focused Physical Exam: BP 119/67 Pulse 70 Wt 168 lb 9.6 oz (76.5kg) LMP 08/07/2011 Nad, aANDox3 rrr Non-labored Soft, ntnd LLE digit 2 tip dry gangrene. Well-demarcated. Tender. No surrounding erythema LLE digit 4 purplish discoloration, nontender. L groin nd L ankle incision cdi, well healed RLE digit 1-4 purplish discoloration Labs: Creatinine Date Value Ref Range Status 11/23/2017 0.79 0.70 - 1.40 mg/dL Final Comment: Reviewed 11/15/2017 0.63 (L) 0.70 - 1.40 mg/dL Final 11/14/2017 0.59 (L) 0.70 - 1.40 mg/dL Final 11/13/2017 0.69 (L) 0.70 - 1.40 mg/dL Final Cholesterol, Total Date Value Ref Range Status 03/27/2010 229 (H) 100 - 199 mg/dL Final HDL Cholesterol Date Value Ref Range Status 03/27/2010 53 (L) >55 mg/dL Final LDL Cholesterol Date Value Ref Range Status 03/27/2010 153 (H) 60 - 129 mg/dL Final Triglyceride Date Value Ref Range Status 03/27/2010 117 30 - 149 mg/dL Final Glucose Date Value Ref Range Status 11/23/2017 113 (H) 65 - 100 mg/dL Final No results found for: HBA1C Impression and plan: 52F s/p LLE fem-ak pop w ptfe for pad, lupus anticoagulant positive ? Fu 2 months w areli/pvr and LLE art duplex Continue anti-coagulation w eliquis. Also on asa/plavix High risk for limb loss due to poor outflow ? Understands need for best medical care and continued follow up for this problem including after any intervention/operation for it. Counseled regarding above and reviewed signs and symptoms of peripheral vascular disease as a marker of overall cardiovascular health at length ? Hypertension: -Blood pressure control. Target <140/90, <130/85 for high risk, 120/80 normal Antiplatelet: -cont?asa/plavix Hyperlipidemia: -cont statin with goal TC < 200, TG < 150, HDL > 45 for men and >55 for women, LDL < 100 or <70 for high risk Physical inactivity: regular walking exercise with goal 30 minutes continuously @ 2-3mph for minimum 5 days/week. ? I spent more than 50% of the visit counseling the patient on the plan and treatment options. ?Face to Face time was 15?minutes. Flo Aragon MD Staff, Vascular Surgery January 18, 2018 2:07 PM CNOV Observed: 01/18/2018 Status: COMPLETED Source: [place] 1:00 PM [facility] REPOSITORY Office Visit ([facility]) NEIL MENDENHALL ([id number]) 1965 F Date Time Provider Department 01/18/18 1:00 PM FLO ARAGON [facility] During your visit today, we recorded the following information about you: Pulse Blood pressure Weight 70/minute 119/67 76.5 kg Flo Aragon MD 01/18/2018 2:09 PM Signed [facility] ESTABLISHED PATIENT NOTE January 18, 2018 History obtained from: record in [facility], patient, friend ? 52 year old female with ? Surgery/Procedure Date:?11/11/2017? Surgeon(s)/Proceduralist(s) and Swimmer(s):???* Flo Aragon - Primary Procedure(s): left?common femoral to above knee popliteal bypass with 7mm ringed PTFE Left distal PT exposure by the medial malleolus ? occlusion of the left?lower extremity superficial femoral artery presents for common femoral to above knee popliteal bypass as well as PT thrombectomy after attemting an endovascular repair Distal PT artery with hyperplasi which was nearly obliterating the lumen She does not have any discernible outflow down her leg to the foot Despite this, the bypass has managed to keep things salvageable for her Complains of tingling pain in her leg and foot Digit 2 distal tip with dry gangrene ? 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 acetaminophen (TYLENOL) 325 mg tablet Take 2 tablets by mouth every 4 hours as needed for Pain or Fever. apixaban (ELIQUIS) 2.5 mg tab tab(s) 10mg twice a day for 1 [id number] twice a day subsequently docusate sodium (COLACE) 100 mg capsule Take 1 capsule by mouth twice daily. clopidogrel (PLAVIX) 75 mg tablet Take 1 tablet by mouth once daily. nitroglycerin (NITRO-BID) 2 % ointment Apply 0.5 g as directed twice daily. Apply in the morning and remove at night NIFEdipine ER (PROCARDIA XL) 30 mg 24 hr tablet Take 1 tablet by mouth once daily. Cholecalciferol, Vitamin D3, 5,000 unit cap Take 5,000 Units by mouth once daily. pregabalin (LYRICA) 225 mg capsule Take 225 mg by mouth twice daily. aspirin 81 mg chewable tablet Take 1 tablet by mouth once daily. pravastatin (PRAVACHOL) 20 mg tablet Take 20 mg by mouth once daily. lamoTRIgine (LAMICTAL) 200 mg tablet Take 200 mg by mouth once daily. aripiprazole(ABILIFY 20 MG TAB) Take one(1) tablet daily. No current facility-administered medications for this visit. Tob: Tobacco Use: .5 packs/day, for 25 years. Quit 09/01/2009. Types: Cigarettes (currently using electronic cigarette) Focused Physical Exam: BP 119/67 Pulse 70 Wt 168 lb 9.6 oz (76.5kg) LMP 08/07/2011 Nad, aANDox3 rrr Non-labored Soft, ntnd LLE digit 2 tip dry gangrene. Well-demarcated. Tender. No surrounding erythema LLE digit 4 purplish discoloration, nontender. L groin nd L ankle incision cdi, well healed RLE digit 1-4 purplish discoloration Labs: Creatinine Date Value Ref Range Status 11/23/2017 0.79 0.70 - 1.40 mg/dL Final Comment: Reviewed 11/15/2017 0.63 (L) 0.70 - 1.40 mg/dL Final 11/14/2017 0.59 (L) 0.70 - 1.40 mg/dL Final 11/13/2017 0.69 (L) 0.70 - 1.40 mg/dL Final Cholesterol, Total Date Value Ref Range Status 03/27/2010 229 (H) 100 - 199 mg/dL Final HDL Cholesterol Date Value Ref Range Status 03/27/2010 53 (L) >55 mg/dL Final LDL Cholesterol Date Value Ref Range Status 03/27/2010 153 (H) 60 - 129 mg/dL Final Triglyceride Date Value Ref Range Status 03/27/2010 117 30 - 149 mg/dL Final Glucose Date Value Ref Range Status 11/23/2017 113 (H) 65 - 100 mg/dL Final No results found for: HBA1C Impression and plan: 52F s/p LLE fem-ak pop w ptfe for pad, lupus anticoagulant positive ? Fu 2 months w areli/pvr and LLE art duplex Continue anti-coagulation w eliquis. Also on asa/plavix High risk for limb loss due to poor outflow ? Understands need for best medical care and continued follow up for this problem including after any intervention/operation for it. Counseled regarding above and reviewed signs and symptoms of peripheral vascular disease as a marker of overall cardiovascular health at length ? Hypertension: -Blood pressure control. Target <140/90, <130/85 for high risk, 120/80 normal Antiplatelet: -cont?asa/plavix Hyperlipidemia: -cont statin with goal TC < 200, TG < 150, HDL > 45 for men and >55 for women, LDL < 100 or <70 for high risk Physical inactivity: regular walking exercise with goal 30 minutes continuously @ 2-3mph for minimum 5 days/week. ? I spent more than 50% of the visit counseling the patient on the plan and treatment options. ?Face to Face time was 15?minutes. Flo Aragon MD Staff, Vascular Surgery January 18, 2018 2:07 PM Referring Provider: FLO ARAGON [[id number]] Allergies As of Date: 01/18/2018 Noted Allergy Reaction HORIZANT (GABAPENTIN ENACARBIL) 04/19/2014 1 - Mental Status Change WELLBUTRIN (BUPROPION HCL) 11/13/2011 14 - Other: See Comments Comments: Took med on Wednesday Woke up 3 days later in hospital Date Reviewed: 01/18/2018 Reviewed by: Flo Aragon - Fully Assessed Reason for Visit: Follow Up [171] Cmt: wound check , left fem pop bypass 11/11/2017 Primary Visit Diagnosis:Arterial occlusion, lower extremity (HCC) [I70.209] Other Visit Diagnoses:Hyperlipidemia, unspecified hyperlipidemia type [E78.5] PAD (peripheral artery disease) [I73.9] Hypercoagulable state (HCC) [D68.59] Prescriptions as of 01/18/2018 Sig: APIXABAN 5 MG (74 TABS) TABLE* Take 10 mg by mouth. ACETAMINOPHEN 325 MG TABLET Take 2 tablets by mouth every* APIXABAN 2.5 MG TABLET 10mg twice a day for 1 week * DOCUSATE SODIUM 100 MG CAPSULE Take 1 capsule by mouth twice* CLOPIDOGREL 75 MG TABLET Take 1 tablet by mouth once d* NITROGLYCERIN 2 % TRANSDERMAL* Apply 0.5 g as directed twice* NIFEDIPINE ER 30 MG TABLET,EX* Take 1 tablet by mouth once d* CHOLECALCIFEROL (VITAMIN D3) * Take 5,000 Units by mouth onc* PREGABALIN 225 MG CAPSULE Take 225 mg by mouth twice da* ASPIRIN 81 MG CHEWABLE TABLET Take 1 tablet by mouth once d* PRAVASTATIN 20 MG TABLET Take 20 mg by mouth once shahram* LAMOTRIGINE 200 MG TABLET Take 200 mg by mouth once chaitanya* * ABILIFY 20 MG TABLET Take one(1) tablet daily. Problem List As Of Date 01/18/2018 Noted Resolved Bipolar affective [F31.9] INVALID FOR* Carotid artery disease [I77.9] INVALID FOR* PAD (peripheral artery disease) [I73.9] INVALID FOR* Priority: B More... Postoperative pain [G89.18] INVALID FOR* Priority: D More... Dehydration [E86.0] INVALID FOR*04/22/2014 Priority: F More... Arterial occlusion, lower extremity (HCC) [I70.*INVALID FOR* Priority: A More... Bipolar disorder (HCC) [F31.9] INVALID FOR* Priority: C More... Hyperlipidemia [E78.5] INVALID FOR* Priority: B More... Neuropathic pain [M79.2] INVALID FOR* Priority: D More... AISSATOU (obstructive sleep apnea) [G47.33] INVALID FOR* Priority: D More... Smoker [F17.200] INVALID FOR* Priority: E More... Thrombus [I82.90] INVALID FOR* Critical lower limb ischemia [I99.8] INVALID FOR*11/15/2017 Priority: A Encounter Status:Closed by FLO ARAGON MD on 01/18/18 PROGRESS Observed: 12/21/2017 Status: COMPLETED Source: [place] 3:25 PM [facility] REPOSITORY [facility] ID: [id number] Author: Flo Aragon Service: (none) Author Type: Physician Type: Progress Notes Filed: 12/21/2017 3:38 PM Note Text: [facility] ESTABLISHED PATIENT NOTE December 21, 2017 History obtained from: record in [facility], patient, friend 52 year old female with ? Surgery/Procedure Date:?11/11/2017? Surgeon(s)/Proceduralist(s) and Swimmer(s):???* Flo Aragon - Primary Procedure(s): left?common femoral to above knee popliteal bypass with 7mm ringed PTFE Left distal PT exposure by the medial malleolus ? occlusion of the left?lower extremity superficial femoral artery presents for common femoral to above knee popliteal bypass as well as PT thrombectomy after attemting an endovascular repair Distal PT artery with hyperplasi which was nearly obliterating the lumen She does not have any discernible outflow down her leg to the foot Despite this, the bypass has managed to keep things salvageable for her Complains of tingling pain in her leg and foot Digit 2 distal tip with dry gangrene on dorsal aspect only ? 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 apixaban (ELIQUIS) 2.5 mg tab tab(s) 10mg twice a day for 1 [id number] twice a day subsequently docusate sodium (COLACE) 100 mg capsule Take 1 capsule by mouth twice daily. clopidogrel (PLAVIX) 75 mg tablet Take 1 tablet by mouth once daily. nitroglycerin (NITRO-BID) 2 % ointment Apply 0.5 g as directed twice daily. Apply in the morning and remove at night NIFEdipine ER (PROCARDIA XL) 30 mg 24 hr tablet Take 1 tablet by mouth once daily. Cholecalciferol, Vitamin D3, 5,000 unit cap Take 5,000 Units by mouth once daily. aspirin 81 mg chewable tablet Take 1 tablet by mouth once daily. pravastatin (PRAVACHOL) 20 mg tablet Take 20 mg by mouth once daily. lamoTRIgine (LAMICTAL) 200 mg tablet Take 200 mg by mouth once daily. aripiprazole(ABILIFY 20 MG TAB) Take one(1) tablet daily. apixaban 5 mg (74 tabs) DsPk Take 10 mg by mouth. pregabalin (LYRICA) 225 mg capsule Take 225 mg by mouth twice daily. No current facility-administered medications for this visit. Tob: Tobacco Use: .5 packs/day, for 25 years. Quit 09/01/2009. Types: Cigarettes (currently using electronic cigarette) Focused Physical Exam: BP 138/72 Ht 5' 6 (1.68m) Wt 170 lb (77.1kg) LMP 08/07/2011 BMI 27.45 kg/(m2). Nad, aANDox3 rrr Non-labored Soft, ntnd LLE digit 2 tip dry gangrene. Well-demarcated. Tender. No surrounding erythema LLE digit 4 purplish discoloration, nontender. L groin nd L ankle incision cdi, well healed RLE digit 1-4 purplish discoloration Labs: Creatinine Date Value Ref Range Status 11/23/2017 0.79 0.70 - 1.40 mg/dL Final Comment: Reviewed 11/15/2017 0.63 (L) 0.70 - 1.40 mg/dL Final 11/14/2017 0.59 (L) 0.70 - 1.40 mg/dL Final 11/13/2017 0.69 (L) 0.70 - 1.40 mg/dL Final Cholesterol, Total Date Value Ref Range Status 03/27/2010 229 (H) 100 - 199 mg/dL Final HDL Cholesterol Date Value Ref Range Status 03/27/2010 53 (L) >55 mg/dL Final LDL Cholesterol Date Value Ref Range Status 03/27/2010 153 (H) 60 - 129 mg/dL Final Triglyceride Date Value Ref Range Status 03/27/2010 117 30 - 149 mg/dL Final Glucose Date Value Ref Range Status 11/23/2017 113 (H) 65 - 100 mg/dL Final No results found for: HBA1C Impression and plan: 52F s/p LLE fem-ak pop w ptfe for pad, lupus anticoagulant positive ? Fu 4 weeks for wound check Refer to vascular medicine Continue anti-coagulation w eliquis. Also on asa/plavix ? Understands need for best medical care and continued follow up for this problem including after any intervention/operation for it. Counseled regarding above and reviewed signs and symptoms of peripheral vascular disease as a marker of overall cardiovascular health at length ? Hypertension: -Blood pressure control. Target <140/90, <130/85 for high risk, 120/80 normal Antiplatelet: -cont asa/plavix Hyperlipidemia: -cont statin with goal TC < 200, TG < 150, HDL > 45 for men and >55 for women, LDL < 100 or <70 for high risk Physical inactivity: regular walking exercise with goal 30 minutes continuously @ 2-3mph for minimum 5 days/week. ? I spent more than 50% of the visit counseling the patient on the plan and treatment options. Face to Face time was 15 minutes. Flo Aragon MD Staff, Vascular Surgery December 21, 2017 3:25 PM CNOV Observed: 12/21/2017 Status: COMPLETED Source: [place] 2:30 PM [facility] REPOSITORY Office Visit ([facility]) NEIL MENDENHALL ([id number]) 1965 F Date Time Provider Department 12/21/17 2:30 PM FLO ARAGON [facility] During your visit today, we recorded the following information about you: Blood pressure Weight Height 138/72 77.1 kg 1.676 m Flo Aragon MD 12/21/2017 3:38 PM Signed [facility] ESTABLISHED PATIENT NOTE December 21, 2017 History obtained from: record in Epic, patient, friend 52 year old female with ? Surgery/Procedure Date:?11/11/2017? Surgeon(s)/Proceduralist(s) and Swimmer(s):???* Flo Aragon - Primary Procedure(s): left?common femoral to above knee popliteal bypass with 7mm ringed PTFE Left distal PT exposure by the medial malleolus ? occlusion of the left?lower extremity superficial femoral artery presents for common femoral to above knee popliteal bypass as well as PT thrombectomy after attemting an endovascular repair Distal PT artery with hyperplasi which was nearly obliterating the lumen She does not have any discernible outflow down her leg to the foot Despite this, the bypass has managed to keep things salvageable for her Complains of tingling pain in her leg and foot Digit 2 distal tip with dry gangrene on dorsal aspect only ? 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 apixaban (ELIQUIS) 2.5 mg tab tab(s) 10mg twice a day for 1 [id number] twice a day subsequently docusate sodium (COLACE) 100 mg capsule Take 1 capsule by mouth twice daily. clopidogrel (PLAVIX) 75 mg tablet Take 1 tablet by mouth once daily. nitroglycerin (NITRO-BID) 2 % ointment Apply 0.5 g as directed twice daily. Apply in the morning and remove at night NIFEdipine ER (PROCARDIA XL) 30 mg 24 hr tablet Take 1 tablet by mouth once daily. Cholecalciferol, Vitamin D3, 5,000 unit cap Take 5,000 Units by mouth once daily. aspirin 81 mg chewable tablet Take 1 tablet by mouth once daily. pravastatin (PRAVACHOL) 20 mg tablet Take 20 mg by mouth once daily. lamoTRIgine (LAMICTAL) 200 mg tablet Take 200 mg by mouth once daily. aripiprazole(ABILIFY 20 MG TAB) Take one(1) tablet daily. apixaban 5 mg (74 tabs) DsPk Take 10 mg by mouth. pregabalin (LYRICA) 225 mg capsule Take 225 mg by mouth twice daily. No current facility-administered medications for this visit. Tob: Tobacco Use: .5 packs/day, for 25 years. Quit 09/01/2009. Types: Cigarettes (currently using electronic cigarette) Focused Physical Exam: BP 138/72 Ht 5' 6 (1.68m) Wt 170 lb (77.1kg) LMP 08/07/2011 BMI 27.45 kg/(m2). Nad, aANDox3 rrr Non-labored Soft, ntnd LLE digit 2 tip dry gangrene. Well-demarcated. Tender. No surrounding erythema LLE digit 4 purplish discoloration, nontender. L groin nd L ankle incision cdi, well healed RLE digit 1-4 purplish discoloration Labs: Creatinine Date Value Ref Range Status 11/23/2017 0.79 0.70 - 1.40 mg/dL Final Comment: Reviewed 11/15/2017 0.63 (L) 0.70 - 1.40 mg/dL Final 11/14/2017 0.59 (L) 0.70 - 1.40 mg/dL Final 11/13/2017 0.69 (L) 0.70 - 1.40 mg/dL Final Cholesterol, Total Date Value Ref Range Status 03/27/2010 229 (H) 100 - 199 mg/dL Final HDL Cholesterol Date Value Ref Range Status 03/27/2010 53 (L) >55 mg/dL Final LDL Cholesterol Date Value Ref Range Status 03/27/2010 153 (H) 60 - 129 mg/dL Final Triglyceride Date Value Ref Range Status 03/27/2010 117 30 - 149 mg/dL Final Glucose Date Value Ref Range Status 11/23/2017 113 (H) 65 - 100 mg/dL Final No results found for: HBA1C Impression and plan: 52F s/p LLE fem-ak pop w ptfe for pad, lupus anticoagulant positive ? Fu 4 weeks for wound check Refer to vascular medicine Continue anti-coagulation w eliquis. Also on asa/plavix ? Understands need for best medical care and continued follow up for this problem including after any intervention/operation for it. Counseled regarding above and reviewed signs and symptoms of peripheral vascular disease as a marker of overall cardiovascular health at length ? Hypertension: -Blood pressure control. Target <140/90, <130/85 for high risk, 120/80 normal Antiplatelet: -cont asa/plavix Hyperlipidemia: -cont statin with goal TC < 200, TG < 150, HDL > 45 for men and >55 for women, LDL < 100 or <70 for high risk Physical inactivity: regular walking exercise with goal 30 minutes continuously @ 2-3mph for minimum 5 days/week. ? I spent more than 50% of the visit counseling the patient on the plan and treatment options. Face to Face time was 15 minutes. Flo Aragon MD Staff, Vascular Surgery December 21, 2017 3:25 PM Referring Provider: FLO ARAGON [[id number]] Allergies As of Date: 12/21/2017 Noted Allergy Reaction HORIZANT (GABAPENTIN ENACARBIL) 04/19/2014 1 - Mental Status Change WELLBUTRIN (BUPROPION HCL) 11/13/2011 14 - Other: See Comments Comments: Took med on Wednesday Woke up 3 days later in hospital Date Reviewed: 12/21/2017 Reviewed by: Flo Aragon - Fully Assessed Primary Visit Diagnosis:Arterial occlusion, lower extremity (HCC) [I70.209] Other Visit Diagnoses:Hyperlipidemia, unspecified hyperlipidemia type [E78.5] PAD (peripheral artery disease) [I73.9] Hypercoagulable state (HCC) [D68.59] Prescriptions as of 12/21/2017 Sig: ACETAMINOPHEN 325 MG TABLET Take 2 tablets by mouth every* APIXABAN 2.5 MG TABLET 10mg twice a day for 1 week * DOCUSATE SODIUM 100 MG CAPSULE Take 1 capsule by mouth twice* CLOPIDOGREL 75 MG TABLET Take 1 tablet by mouth once d* NITROGLYCERIN 2 % TRANSDERMAL* Apply 0.5 g as directed twice* NIFEDIPINE ER 30 MG TABLET,EX* Take 1 tablet by mouth once d* CHOLECALCIFEROL (VITAMIN D3) * Take 5,000 Units by mouth onc* ASPIRIN 81 MG CHEWABLE TABLET Take 1 tablet by mouth once d* PRAVASTATIN 20 MG TABLET Take 20 mg by mouth once shahram* LAMOTRIGINE 200 MG TABLET Take 200 mg by mouth once chaitanya* * ABILIFY 20 MG TABLET Take one(1) tablet daily. APIXABAN 5 MG (74 TABS) TABLE* Take 10 mg by mouth. PREGABALIN 225 MG CAPSULE Take 225 mg by mouth twice da* Problem List As Of Date 12/21/2017 Noted Resolved Bipolar affective [F31.9] INVALID FOR* Carotid artery disease [I77.9] INVALID FOR* PAD (peripheral artery disease) [I73.9] INVALID FOR* Priority: B More... Postoperative pain [G89.18] INVALID FOR* Priority: D More... Dehydration [E86.0] INVALID FOR*04/22/2014 Priority: F More... Arterial occlusion, lower extremity (HCC) [I70.*INVALID FOR* Priority: A More... Bipolar disorder (HCC) [F31.9] INVALID FOR* Priority: C More... Hyperlipidemia [E78.5] INVALID FOR* Priority: B More... Neuropathic pain [M79.2] INVALID FOR* Priority: D More... AISSATOU (obstructive sleep apnea) [G47.33] INVALID FOR* Priority: D More... Smoker [F17.200] INVALID FOR* Priority: E More... Thrombus [I82.90] INVALID FOR* Critical lower limb ischemia [I99.8] INVALID FOR*11/15/2017 Priority: A Encounter Status:Closed by FLO ARAGON MD on 12/21/17 CNOV Observed: 11/30/2017 Status: COMPLETED Source: [place] 2:00 PM [facility] REPOSITORY Office Visit ([facility]) NEIL MENDENHALL ([id number]) 1965 F Date Time Provider Department 11/30/17 2:00 PM FLO ARAGON [facility] During your visit today, we recorded the following information about you: Blood pressure Weight 130/79 73 kg Flo Aragon MD 11/30/2017 2:04 PM Signed [facility] ESTABLISHED PATIENT NOTE November 30, 2017 History obtained from: record in Epic, patient, friend 52 year old female with Surgery/Procedure Date: 11/11/2017 Surgeon(s)/Proceduralist(s) and Swimmer(s): * Flo Aragon - Primary Procedure(s): left common femoral to above knee popliteal bypass with 7mm ringed PTFE Left distal PT exposure by the medial malleolus occlusion of the left lower extremity superficial femoral artery presents for common femoral to above knee popliteal bypass as well as PT thrombectomy after attemting an endovascular repair Distal PT artery with hyperplasi which was nearly obliterating the lumen She does not have any discernible outflow down her leg to the foot Despite this, the bypass has managed to keep things salvageable for her Complains of tingling pain in her leg and foot Digit 2 distal tip with dry gangrene on dorsal aspect only Imaging studies: I have personally viewed the following images/data: none Meds include: Current Outpatient Prescriptions: cephALEXin (KEFLEX) 500 mg capsule Take 1 capsule by mouth every 6 hours for 7 days. sulfamethoxazole-trimethoprim (BACTRIM DS,SEPTRA DS) 800-160 mg per tablet Take 1 tablet by mouth every 12 hours for 7 days. acetaminophen (TYLENOL) 325 mg tablet Take 2 tablets by mouth every 4 hours as needed for Pain or Fever. apixaban (ELIQUIS) 2.5 mg tab tab(s) 10mg twice a day for 1 [id number] twice a day subsequently acetaminophen (TYLENOL) 325 mg tablet Take 2 tablets by mouth every 6 hours. docusate sodium (COLACE) 100 mg capsule Take 1 capsule by mouth twice daily. clopidogrel (PLAVIX) 75 mg tablet Take 1 tablet by mouth once daily. nitroglycerin (NITRO-BID) 2 % ointment Apply 0.5 g as directed twice daily. Apply in the morning and remove at night NIFEdipine ER (PROCARDIA XL) 30 mg 24 hr tablet Take 1 tablet by mouth once daily. Cholecalciferol, Vitamin D3, 5,000 unit cap Take 5,000 Units by mouth once daily. pregabalin (LYRICA) 225 mg capsule Take 225 mg by mouth twice daily. aspirin 81 mg chewable tablet Take 1 tablet by mouth once daily. pravastatin (PRAVACHOL) 20 mg tablet Take 20 mg by mouth once daily. lamoTRIgine (LAMICTAL) 200 mg tablet Take 200 mg by mouth once daily. aripiprazole(ABILIFY 20 MG TAB) Take one(1) tablet daily. No current facility-administered medications for this visit. Tob: Tobacco Use: .5 packs/day, for 25 years. Quit 09/01/2009. Types: Cigarettes (currently using electronic cigarette) Focused Physical Exam: BP 130/79 Wt 161 lb (73.0kg) LMP 08/07/2011 Nad, aANDox3 rrr Non-labored Soft, ntnd LLE warm, medial incision by ankle sutures removed at bedside. L groin incision with smal lbreakdown at crease and medial thigh incision cdi Labs: Creatinine Date Value Ref Range Status 11/23/2017 0.79 0.70 - 1.40 mg/dL Final Comment: Reviewed 11/15/2017 0.63 (L) 0.70 - 1.40 mg/dL Final 11/14/2017 0.59 (L) 0.70 - 1.40 mg/dL Final 11/13/2017 0.69 (L) 0.70 - 1.40 mg/dL Final Cholesterol, Total Date Value Ref Range Status 03/27/2010 229 (H) 100 - 199 mg/dL Final HDL Cholesterol Date Value Ref Range Status 03/27/2010 53 (L) >55 mg/dL Final LDL Cholesterol Date Value Ref Range Status 03/27/2010 153 (H) 60 - 129 mg/dL Final Triglyceride Date Value Ref Range Status 03/27/2010 117 30 - 149 mg/dL Final Glucose Date Value Ref Range Status 11/23/2017 113 (H) 65 - 100 mg/dL Final No results found for: HBA1C Impression and plan: 52F s/p LLE fem-ak pop w ptfe for pad, lupus anticoagulant positive Fu 2 weeks w pvr and LLE art duplex Refer to vascular medicine Continue anti-coagulation w eliquis Understands need for best medical care and continued follow up for this problem including after any intervention/operation for it. Counseled regarding above and reviewed signs and symptoms of peripheral vascular disease as a marker of overall cardiovascular health at length Hypertension: -Blood pressure control. Target <140/90, <130/85 for high risk, 120/80 normal Antiplatelet: -cont asa/plavix Hyperlipidemia: -cont statin with goal TC < 200, TG < 150, HDL > 45 for men and >55 for women, LDL < 100 or <70 for high risk Physical inactivity: regular walking exercise with goal 30 minutes continuously @ 2-3mph for minimum 5 days/week. I spent more than 50% of the visit counseling the patient on the plan and treatment options. Face to Face time was 15 minutes. Flo Aragon MD Staff, Vascular Surgery November 30, 2017 1:59 PM Referring Provider: SELF [[id number]] Allergies As of Date: 11/30/2017 Noted Allergy Reaction HORIZANT (GABAPENTIN ENACARBIL) 04/19/2014 1 - Mental Status Change WELLBUTRIN (BUPROPION HCL) 11/13/2011 14 - Other: See Comments Comments: Took med on Wednesday Woke up 3 days later in hospital Date Reviewed: 11/30/2017 Reviewed by: Flo Aragon - Fully Assessed Reason for Visit: Post Op [174] Cmt: left fem bypass 11/11 Primary Visit Diagnosis:Arterial occlusion, lower extremity (HCC) [I70.209] Other Visit Diagnoses:Hyperlipidemia, unspecified hyperlipidemia type [E78.5] PAD (peripheral artery disease) [I73.9] Prescriptions as of 11/30/2017 Sig: CEPHALEXIN 500 MG CAPSULE Take 1 capsule by mouth every* SULFAMETHOXAZOLE 800 MG-TRIME* Take 1 tablet by mouth every * ACETAMINOPHEN 325 MG TABLET Take 2 tablets by mouth every* APIXABAN 2.5 MG TABLET 10mg twice a day for 1 week * ACETAMINOPHEN 325 MG TABLET Take 2 tablets by mouth every* DOCUSATE SODIUM 100 MG CAPSULE Take 1 capsule by mouth twice* CLOPIDOGREL 75 MG TABLET Take 1 tablet by mouth once d* NITROGLYCERIN 2 % TRANSDERMAL* Apply 0.5 g as directed twice* NIFEDIPINE ER 30 MG TABLET,EX* Take 1 tablet by mouth once d* CHOLECALCIFEROL (VITAMIN D3) * Take 5,000 Units by mouth onc* PREGABALIN 225 MG CAPSULE Take 225 mg by mouth twice da* ASPIRIN 81 MG CHEWABLE TABLET Take 1 tablet by mouth once d* PRAVASTATIN 20 MG TABLET Take 20 mg by mouth once shahram* LAMOTRIGINE 200 MG TABLET Take 200 mg by mouth once chaitanya* * ABILIFY 20 MG TABLET Take one(1) tablet daily. Problem List As Of Date 11/30/2017 Noted Resolved Bipolar affective [F31.9] INVALID FOR* Carotid artery disease [I77.9] INVALID FOR* PAD (peripheral artery disease) [I73.9] INVALID FOR* Priority: B More... Postoperative pain [G89.18] INVALID FOR* Priority: D More... Dehydration [E86.0] INVALID FOR*04/22/2014 Priority: F More... Arterial occlusion, lower extremity (HCC) [I70.*INVALID FOR* Priority: A More... Bipolar disorder (HCC) [F31.9] INVALID FOR* Priority: C More... Hyperlipidemia [E78.5] INVALID FOR* Priority: B More... Neuropathic pain [M79.2] INVALID FOR* Priority: D More... AISSATOU (obstructive sleep apnea) [G47.33] INVALID FOR* Priority: D More... Smoker [F17.200] INVALID FOR* Priority: E More... Thrombus [I82.90] INVALID FOR* Critical lower limb ischemia [I99.8] INVALID FOR*11/15/2017 Priority: A Encounter Status:Closed by FLO ARAGON MD on 11/30/17 PROGRESS Observed: 11/30/2017 Status: COMPLETED Source: [place] 1:59 PM [facility] [place] REPOSITORY HNO ID: [id number] Author: Flo Aragon Service: (none) Author Type: Physician Type: Progress Notes Filed: 11/30/2017 2:04 PM Note Text: [facility] ESTABLISHED PATIENT NOTE November 30, 2017 History obtained from: record in Epic, patient, friend 52 year old female with Surgery/Procedure Date: 11/11/2017 Surgeon(s)/Proceduralist(s) and Swimmer(s): * Flo Aragon - Primary Procedure(s): left common femoral to above knee popliteal bypass with 7mm ringed PTFE Left distal PT exposure by the medial malleolus occlusion of the left lower extremity superficial femoral artery presents for common femoral to above knee popliteal bypass as well as PT thrombectomy after attemting an endovascular repair Distal PT artery with hyperplasi which was nearly obliterating the lumen She does not have any discernible outflow down her leg to the foot Despite this, the bypass has managed to keep things salvageable for her Complains of tingling pain in her leg and foot Digit 2 distal tip with dry gangrene on dorsal aspect only Imaging studies: I have personally viewed the following images/data: none Meds include: Current Outpatient Prescriptions: cephALEXin (KEFLEX) 500 mg capsule Take 1 capsule by mouth every 6 hours for 7 days. sulfamethoxazole-trimethoprim (BACTRIM DS,SEPTRA DS) 800-160 mg per tablet Take 1 tablet by mouth every 12 hours for 7 days. acetaminophen (TYLENOL) 325 mg tablet Take 2 tablets by mouth every 4 hours as needed for Pain or Fever. apixaban (ELIQUIS) 2.5 mg tab tab(s) 10mg twice a day for 1 [id number] twice a day subsequently acetaminophen (TYLENOL) 325 mg tablet Take 2 tablets by mouth every 6 hours. docusate sodium (COLACE) 100 mg capsule Take 1 capsule by mouth twice daily. clopidogrel (PLAVIX) 75 mg tablet Take 1 tablet by mouth once daily. nitroglycerin (NITRO-BID) 2 % ointment Apply 0.5 g as directed twice daily. Apply in the morning and remove at night NIFEdipine ER (PROCARDIA XL) 30 mg 24 hr tablet Take 1 tablet by mouth once daily. Cholecalciferol, Vitamin D3, 5,000 unit cap Take 5,000 Units by mouth once daily. pregabalin (LYRICA) 225 mg capsule Take 225 mg by mouth twice daily. aspirin 81 mg chewable tablet Take 1 tablet by mouth once daily. pravastatin (PRAVACHOL) 20 mg tablet Take 20 mg by mouth once daily. lamoTRIgine (LAMICTAL) 200 mg tablet Take 200 mg by mouth once daily. aripiprazole(ABILIFY 20 MG TAB) Take one(1) tablet daily. No current facility-administered medications for this visit. Tob: Tobacco Use: .5 packs/day, for 25 years. Quit 09/01/2009. Types: Cigarettes (currently using electronic cigarette) Focused Physical Exam: BP 130/79 Wt 161 lb (73.0kg) LMP 08/07/2011 Nad, aANDox3 rrr Non-labored Soft, ntnd LLE warm, medial incision by ankle sutures removed at bedside. L groin incision with smal lbreakdown at crease and medial thigh incision cdi Labs: Creatinine Date Value Ref Range Status 11/23/2017 0.79 0.70 - 1.40 mg/dL Final Comment: Reviewed 11/15/2017 0.63 (L) 0.70 - 1.40 mg/dL Final 11/14/2017 0.59 (L) 0.70 - 1.40 mg/dL Final 11/13/2017 0.69 (L) 0.70 - 1.40 mg/dL Final Cholesterol, Total Date Value Ref Range Status 03/27/2010 229 (H) 100 - 199 mg/dL Final HDL Cholesterol Date Value Ref Range Status 03/27/2010 53 (L) >55 mg/dL Final LDL Cholesterol Date Value Ref Range Status 03/27/2010 153 (H) 60 - 129 mg/dL Final Triglyceride Date Value Ref Range Status 03/27/2010 117 30 - 149 mg/dL Final Glucose Date Value Ref Range Status 11/23/2017 113 (H) 65 - 100 mg/dL Final No results found for: HBA1C Impression and plan: 52F s/p LLE fem-ak pop w ptfe for pad, lupus anticoagulant positive Fu 2 weeks w pvr and LLE art duplex Refer to vascular medicine Continue anti-coagulation w gerardo Understands need for best medical care and continued follow up for this problem including after any intervention/operation for it. Counseled regarding above and reviewed signs and symptoms of peripheral vascular disease as a marker of overall cardiovascular health at length Hypertension: -Blood pressure control. Target <140/90, <130/85 for high risk, 120/80 normal Antiplatelet: -cont asa/plavix Hyperlipidemia: -cont statin with goal TC < 200, TG < 150, HDL > 45 for men and >55 for women, LDL < 100 or <70 for high risk Physical inactivity: regular walking exercise with goal 30 minutes continuously @ 2-3mph for minimum 5 days/week. I spent more than 50% of the visit counseling the patient on the plan and treatment options. Face to Face time was 15 minutes. Flo Aragon MD Staff, Vascular Surgery November 30, 2017 1:59 PM ED NOTE Observed: 11/23/2017 Status: COMPLETED Source: [place] 2:57 PM [facility] REPOSITORY HNO ID: [id number] Author: Bryce Roberts (Rn), RN Service: Nursing Author Type: Registered Nurse Type: ED Notes Filed: 11/23/2017 2:57 PM Note Text: Discharge instructions discussed, patient verbalizes understanding, follow up care discussed, VSS, patient ambulated without difficulty to exit. ED NOTE Observed: 11/23/2017 Status: COMPLETED Source: [place] 2:03 PM [facility] REPOSITORY HNO ID: [id number] Author: Bryce RobertsRn), RN Service: Nursing Author Type: Registered Nurse Type: ED Notes Filed: 11/23/2017 2:03 PM Note Text: Surgery at bedside consenting patient ED NOTE Observed: 11/23/2017 Status: COMPLETED Source: [place] 1:45 PM [facility] OTHER [place] REPOSITORY HNO ID: [id number] Author: Bryce Roberts (Rn), RN Service: Nursing Author Type: Registered Nurse Type: ED Notes Filed: 11/23/2017 1:46 PM Note Text: Patient to be discharged after IV abx XR TOE 3V AP/LAT/OBL Observed: 11/23/2017 Status: F Source: [facility] 1:05 PM [facility] OTHER [place] REPOSITORY * * *Final Report* * * DATE OF EXAM: Nov 23 2017 1:05PM FVX [id number] - XR TOE 3V AP/LAT/OBL LT / PROCEDURE REASON: Osteomyelitis (HCC) * * * * Physician Interpretation * * * * EXAMINATION: XR TOE 3V AP/LAT/OBL LT Clinical history: Osteomyelitis (HCC) Comparison: None available at time of dictation RESULT: No soft tissue gas. No cortical erosion. Articular spaces maintained IMPRESSION: NO RADIOGRAPHIC EVIDENCE OF OSTEOMYELITIS Medical Instrument Cable Fabricator: MARIBEL Transcribe Date/Time: Nov 23 2017 1:14P Dictated by : KAYLA BISHOP MD This examination was interpreted and the report reviewed and electronically signed by: KAYLA BISHOP MD on Nov 23 2017 1:15PM EST [id number] CONSULT Observed: 11/23/2017 Status: COMPLETED Source: [place] 1:02 PM [facility] REPOSITORY HNO ID: [id number] Author: Lincoln Virgen (Res)MD Service: Vascular Surgery Author Type: Resident Type: Consults Filed: 11/23/2017 1:19 PM Note Text: [facility] HANDP Service Date: 11/23/2017 Admit Date: 11/23/2017 Service Time: 1PM LOS: 0 Vascular Physician: Herson Nam MD Subjective Chief Complaint: Left toe pain HPI: Neil Mendenhall is a 52 year old White female referred by Liz Rascon for an opinion regarding management of second left toe pain. PMH of DM, bipolar disorder, known vasculopath s/p multiple vascular procedures most recently left INTERNET ASSESSOR to [place] pop bypass with 7mm PTFE ringed graft with left distal PT exposure on 11/11/[address] Aragon. Patient presented to ED today with complaint of second left toe pain that has been chronic however increased over the last 24 hours with some mild bleeding from the toe bed yesterday and small amount of purulent drainage this morning. She endorses that last week the toenail was taken off the second left toe. The appearance of the toe has been largely unchanged for the last few months and was told by her offal baler that she will eventually lose the toe. She denies fevers, nausea, vomiting, SOB, or pain anywhere else. Denies drainage from her surgical wounds. No weakness, numbness, or motor loss. Location: left Quality: acute on chronic Severity: moderate Duration: 2 days PAST MEDICAL HISTORY Diagnosis Date - Carotid artery disease (HCC) PAST SURGICAL HISTORY Procedure Laterality Date - ANGIO TRANSLUM BALL ANGIO ANGELO 2008 No family history on file. Social History Substance Use Topics - Smoking status: Former Smoker Packs/day: 0.50 Years: 25.00 Types: Cigarettes Quit date: 09/01/2009 - Smokeless tobacco: Never Used Comment: currently using electronic cigarette - Alcohol use No (Not in a hospital admission) ALLERGIES Allergen Reactions - Horizant [Gabapenti* Mental Status Change - Wellbutrin [Bupropi* Other: See Comments Took med on Wednesday Woke up 3 days later in hospital COMPLETE REVIEW OF SYSTEMS CONSTITUTIONAL: No weight loss, malaise or fevers. HEENT: Negative for frequent or significant headaches, No changes in hearing or vision, no nose bleeds or other nasal problems. RESPIRATORY: Negative for cough, wheezing, or shortness of breath CARDIOVASCULAR: Negative for chest pain, leg swelling or palpitations GI: Negative for abdominal discomfort, blood in stools or black stools or change in bowel habits. : No history of dysuria, frequency, or incontinence and No difficulty urination, nocturia >1 times per night or hematuria. MUSCULOSKELETAL: +left second toe pain. ENDOCRINE: Negative for cold or heat intolerance, polyuria, polydipsia and goiter HEMATOLOGIC/LYMPHATIC: Negative for prolonged bleeding, bruising easily or swollen nodes. NEUROLOGIC: No history or headaches, syncope, paralysis, seizures or tremors. INTEGUMENTARY: Negative for lesions, rash, and itching. Objective PHYSICAL EXAM Physical Exam Performed Patient Vitals for the past 24 hrs: BP Temp Temp src Pulse Resp SpO2 Height Weight 11/23/17 1302 158/85 - - 75 16 99 % - - 11/23/17 1145 162/87 36.9 ?C (98.5 ?F) Oral 81 15 100 % 167.6 cm (5' 6) 76.2 kg (168 lb) No intake or output data in the 24 hours ending 11/23/17 1302 CONSTITUTIONAL: Well developed NEUROLOGIC/PSYCHIATRIC: Oriented to time, place AND person HEENT: PERRLA LUNGS: NON LABORED BREATHING HEART: Regular rate AND rhythm ABDOMEN: Soft and Non-tender INTEGUMENTARY: Wound - Left second toe is mildly blue at the distal end with necrotic toe nail base. No purulence or bleeding appreciated on exam. Tender to touch. Lower extremities are warm with brisk cap refill on exam. SURGICAL SITES: Left groin, medial thigh, and left medial malleolus surgical wounds are clean dry and intact. MUSCULOSKELETAL: No deformities Pulses/Signals: Carotid Brachial Radial Ulnar Femoral Popliteal Dorsalis Pedis Posterior Tibial Peroneal Right Palpable +2 Palpable +2 Palpable +2 Not palpable Palpable +2 Palpable +2 Biphasic Signal Biphasic Signal Biphasic Signal Left Palpable +2 Palpable +2 Palpable +2 Not palpable Not palpable Palpable +2 Palpable +1 Biphasic Signal Biphasic Signal Does the patient have critical limb ischemia, rest pain, tissue loss or gangrene?: No DATA: Laboratory: Recent Labs 11/23/17 1215 WBC 7.58 HB 11.8 HCT 36.3 PLT 732* Recent Labs 11/23/17 1215 NA 139 K 4.0 BUN 13 CREAT 0.79 GLUC 113* Recent Labs 11/23/17 1215 INR 1.0 Radiology: I have personally reviewed the following images/data: Labs, imaging Assessment/Plan Impression: Neil Mendenhall is a 52 year old White female referred by Liz Rascon for an opinion regarding management of second left toe pain. PMH of DM, bipolar disorder, known vasculopath s/p multiple vascular procedures most recently left INTERNET ASSESSOR to [place] pop bypass with 7mm PTFE ringed graft with left distal PT exposure on 11/11/[address] Aragon. Patient presented to ED today with complaint of second left toe pain that has been chronic however increased over the last 24 hours with some mild bleeding from the toe bed yesterday and small amount of purulent drainage this morning. Hemodynamically stable and a-febrile. Normal WBC. No signs of purulence/bleeding on exam of the second left toe. Pulse exam stable. Lower extremities warm and well perfused bilaterally. No motor or sensory loss appreciated. Plan: Treatment plan includes - PO Keflex 500 mg TID - Follow up with Dr. Aragon by the end of this week 11/26/17 - Return of any worsening of symptoms, systemic signs of infection - Plan discussed with Dr. Ramírez, staff stallion keeper HOSPITALIZATION(S) Indication for hospital admission/procedure: LE ischemia Important/Relevant PMH/PSH: PAD, s/p stents placement in RLE, s/p revascularisation x 2 in LLE, carotid artery disease, small vessel disease, bipolar disorder Overall Course (narrative, include presentation and problems managed prior to surgery or admission to Current Unit): Patient presented to OSH with LLE ischemia, had SFA occlusion, underwent lysis today and then was transferred to the clinic for further management Procedure/Surgeries: 04/20/2014 LLE lysis at OSH 04/21/2014 diagnostic angiogram, lytic check, angio jet thrombolysis Findings: Left SFA thrombus, Left PT proximal thrombus, distal AT thrombus, tibioperoneal trunk and proximal AT patent 04/22/2014 left femoral angiogram w runoff, removal infusion wires/catheters AND sheath (Rt) Findings: complete lysis Left SFA w/o underlying stenosis, same PT (? Area just beyond ankle), peroneal collateralizes above ankle, AT mid-prox occlusion same Airway Difficulty: not known UNIT (summarize and move summary to overall course prior to transfer of care) Course in Current Unit (narrative): Today's Impression and Plan 04/22/2014 (include currently managed major problems): Transfer to Step-down unit today. LLE ischemia: lysis discontinued has palpable PTs, and bilateral DP signals Postop pain managed with dilaudid STUDY ABROAD ADVISOR, dosage increased PAD Bipolar disorder: continued on home meds Neuropathy: continued on home meds AISSATOU: intermittant while here: CPAP ordered QHS Smoker: states she is quitting Issues to communicate at signout: as above No problems updated. Medication and Non-Pharmacologic VTE Prophylaxis/Anticoagulants VTE Prophylaxis: VTE prophylaxis appropriate SIGNATURE: Lincoln Moscoso MD PATIENT NAME: Neil Mendenhall DATE: November 23, 2017 TIME: 1:02 PM PAGER/CONTACT #: [phone] ETX#[id number] ED NOTE Observed: 11/23/2017 Status: COMPLETED Source: [facility] 12:24 PM CLINIC OTHER CAMPUS REPOSITORY HNO ID: [id number] Author: Bryce Roberts (Rn), RN Service: Nursing Author Type: Registered Nurse Type: ED Notes Filed: 11/23/2017 12:24 PM Note Text: Lactic on ice and other blood work sent to lab ED NOTE Observed: 11/23/2017 Status: COMPLETED Source: [place] 12:23 PM CLINIC OTHER CAMPUS REPOSITORY HNO ID: [id number] Author: Bryce Roberts (Rn), RN Service: Nursing Author Type: Registered Nurse Type: ED Notes Filed: 11/23/2017 12:24 PM Note Text: Patient presents with L toe wound states recent leg bypass surgery states had wound from decreased blood flow to foot states vascular team talked about removing toe but have not yet done so. Patient denies any other symtoms. Plan of care -Monitor Patient's Vital Signs for changes in condition -Monitor patient for changes in pain -Maintain patient safety and privacy -Provide comfort measures -Call light in place Siderails up, bed in locked and low position VENOUS BLOOD GAS Collected: 11/23/2017 Status: F Source: [facility] USE ONLY 12:15 PM [facility] REPOSITORY TYPE CODE TESTS RESULT OUT OF REFERENCE UNITS RANGE LAB VPH 7.33-7.43 pH 7.38 LAB VPC2 33-48 mm Hg pCO2 35 LAB VPO2 30-50 mm Hg pO2 39 LAB VHC3 23-30 mmol/L Bicarbonate Low 20 LAB VO2S 50-70 % Oxygen High Saturation 73 LAB DRWSIT Drawsite Venous LAB VBE 0-3 mmol/L Base Excess NEG 4 Result Comment: 0-3 Performed By: #### VBG, SLACT, CBCDIF, CMP, PT #### [place] [address] SEPSIS LACTATE Collected: 11/23/2017 Status: F Source: [place] 12:15 PM [facility] REPOSITORY TYPE CODE TESTS RESULT OUT OF REFERENCE UNITS RANGE LAB SLACTT 0.5-2.0 mmol/L Sepsis 1.5 Lactate Performed By: #### VBG, SLACT, CBCDIF, CMP, PT #### [place] [id number] CBC AND DIFFERENTIAL Collected: 11/23/2017 Status: F Source: [facility] 12:15 PM [facility] REPOSITORY TYPE CODE TESTS RESULT OUT OF REFERENCE UNITS RANGE LAB WBC 3.70-11.00 k/uL WBC 7.58 LAB RBC 3.90-5.20 m/uL RBC 4.21 LAB HGB 11.5-15.5 g/dL Hemoglobin 11.8 LAB HCT 36.0-46.0 % Hematocrit 36.3 LAB MCV 80.0-100.0 fL MCV 86.2 LAB MCH 26.0-34.0 pG MCH 28.0 LAB MCHC 30.5-36.0 g/dL MCHC 32.5 LAB RDWCV 11.5-15.0 % RDW-CV 14.2 LAB PLTCT 150-400 k/uL Platelet High Count 732 LAB MPV 9.0-12.7 fL MPV 9.2 LAB NEUTS % Neut% 56.3 LAB AANEUT 1.45-7.50 k/uL Abs Neut 4.27 LAB LYMPHS % Lymph% 37.3 LAB AALYMP 1.00-4.00 k/uL Abs Lymph 2.83 LAB MONOS % [place]% 3.7 LAB AAMONO <0.87 k/uL Abs [place] 0.28 LAB EOS % Eosin% 2.0 LAB AAEOS <0.46 k/uL Abs Eosin 0.15 LAB BASOS % Baso% 0.7 LAB AABASO <0.11 k/uL Abs Baso 0.05 LAB DTYP DTYPE Auto Diff Performed By: #### VBG, SLACT, CBCDIF, CMP, PT #### [place] [id number] [place] [address] COMP METABOLIC PANEL Collected: 11/23/2017 Status: F Source: [facility] 12:15 PM CLINIC OTHER CAMPUS REPOSITORY TYPE CODE TESTS RESULT OUT OF REFERENCE UNITS RANGE LAB TP 6.0-8.4 g/dL Protein, Total 7.9 LAB ALB 3.5-5.0 g/dL Albumin 4.1 LAB CA 8.5-10.5 mg/dL Calcium, Total 9.4 LAB TBIL 0.0-1.5 mg/dL Bilirubin, Total <0.2 LAB ALKP 40-150 U/L Alkaline Phosphatase 74 LAB AST 7-40 U/L AST 10 LAB GLU 65-100 mg/dL Glucose High 113 LAB BUN 8-25 mg/dL BUN 13 LAB CRET 0.70-1.40 mg/dL Creatinine 0.79 Result Comment: Reviewed LAB NA 132-148 mmol/L Sodium 139 LAB K 3.5-5.0 mmol/L Potassium 4.0 LAB CL 98-110 mmol/L Chloride 102 LAB CO2 23-32 mmol/L CO2 Low 21 LAB AGAP 9-18 mmol/L Anion Gap 16 LAB ALT 0-45 U/L ALT 11 LAB GFRAA >60 eGFR- Amer. >60 LAB GFRNAA >60 . eGFR-All Other Races >60 Performed By: #### VBG, SLACT, CBCDIF, CMP, PT #### [place] [address] PROTIME Collected: 11/23/2017 Status: F Source: [facility] 12:15 PM CLINIC OTHER [place] REPOSITORY TYPE CODE TESTS RESULT OUT OF RANGE REFERENCE UNITS LAB PSEC 9.7-13.0 sec PT Sec 10.7 LAB INR 0.9-1.3 PT INR 1.0 Result Comment: Vitamin K Antagonist (VKA) Therapeutic Range: INR 2 to 3 (Target INR of 2.5) Note: For patients treated with VKA drugs, such as warfarin, the [employer] 2012 Guideline recommends a therapeutic INR range of 2 to 3 (target INR of 2.5). This recommendation includes high-risk patients with antiphospholipid syndrome with previous arterial or venous thromboembolism, current-generation mechanical or bioprosthetic aortic heart valve replacement. Note: Patients with mechanical aortic valve replacement and additional risk factors for thromboembolic events (atrial fibrillation, previous thromboembolism, LV dysfunction, hypercoagulable conditions) or an older generation mechanical AVR (i.e., ball in-Cage) or any mechanical MVR should have a INR therapeutic range of 2.5 to 3.5 (target INR of 3). Nimesh GH, et al. Chest 2012, 141:7S-47S Dereck RA, et al. [facility] 2017, 70: 252-289 Performed By: #### VBG, SLACT, CBCDIF, CMP, PT #### [place] [address] TYPE AND SCREEN Collected: 11/23/2017 Status: F Source: [place] 12:15 PM [facility] REPOSITORY TYPE CODE TESTS RESULT OUT OF REFERENCE UNITS RANGE LAB %ABR A ABO/RH(D) NEGATIVE LAB % Antibody NEG Screen Performed By: #### TSCR #### [place] [address] ED PROV NOTE Observed: 11/23/2017 Status: COMPLETED Source: [place] 12:12 PM CLINIC OTHER CAMPUS REPOSITORY O ID: [id number] Author: Liz Thompson Service: Emergency Medicine Author Type: Physician Type: ED Provider Notes Filed: 11/23/2017 5:10 PM Note Text: ED Provider Note Patient Name: Neil Mendenhall SERVICE DATE: 11/23/17 History Patient presents with: Wound Check: middle toe, recent bipass surgery , cyonotic in color 52-year-old female with history of CAD, severe peripheral vascular disease, status post Left INTERNET ASSESSOR to [place] pop bypass with 7mm PTFE ringed graft with left distal PT exposure 1 week ago presenting with black left toe. Patient reports noticing the toe 4 days ago after having the toe nail removed. Patient has noticed increasing pain and last night noticed bleeding around the site as well as pus drainage. Patient endorses some discoloration and numbness to her third and fourth toes as well. Patient denies fevers, chills, nausea, vomiting, diarrhea. History provided by: Patient Pain (foot) Severity: Moderate Associated symptoms: no chest pain, no congestion, no cough, no diarrhea, no fever, no myalgias, no nausea, no rhinorrhea, no shortness of breath and no vomiting PAST MEDICAL HISTORY Diagnosis Date - Carotid artery disease (HCC) PAST SURGICAL HISTORY Procedure Laterality Date - ANGIO TRANSLUM BALL ANGIO ANGELO 2008 [id number] No family history on file. Social History Social History Main Topics - Smoking status: Former Smoker Packs/day: 0.50 Years: 25.00 Types: Cigarettes Quit date: 09/01/2009 - Smokeless tobacco: Never Used Comment: currently using electronic cigarette - Alcohol use No - Drug use: Unknown - Sexual activity: Not on file ALLERGIES Allergen Reactions - Horizant [Gabapenti* Mental Status Change - Wellbutrin [Bupropi* Other: See Comments Took med on Wednesday Woke up 3 days later in hospital Review of Systems Constitutional: Negative for chills and fever. HENT: Negative for congestion and rhinorrhea. Eyes: Negative for discharge and redness. Respiratory: Negative for cough and shortness of breath. Cardiovascular: Negative for chest pain and palpitations. Gastrointestinal: Negative for diarrhea, nausea and vomiting. Genitourinary: Negative for dysuria and hematuria. Musculoskeletal: Negative for arthralgias and myalgias. Skin: Positive for color change. Negative for pallor. Neurological: Negative for dizziness and facial asymmetry. Psychiatric/Behavioral: Negative for agitation and behavioral problems. Physical Exam BP 162/87 Pulse 81 Temp (Src) 98.5 (Oral) Resp 15 Ht 5' 6 (1.68m) Wt 168 lb (76.2kg) SpO2 100% BMI 27.13 kg/(m2). Physical Exam Constitutional: She appears well-developed and well-nourished. HENT: Head: Normocephalic and atraumatic. Eyes: Conjunctivae are normal. Pupils are equal, round, and reactive to light. Neck: Normal range of motion. Neck supple. Cardiovascular: Normal rate, regular rhythm and normal heart sounds. Pulmonary/Chest: Effort normal and breath sounds normal. No respiratory distress. She has no wheezes. She has no rales. Abdominal: Soft. She exhibits no distension. There is no tenderness. There is no rebound and no guarding. Musculoskeletal: She exhibits no edema. Neurological: She is alert. Skin: Skin is warm and dry. Dopplerable DP pulse easily obtained, no palpable pulse Left second toe with black nailbed, surrounding dried blood, red-bluish discoloration, tenderness, some loss of sensation, able to move toe, mild discoloration of the second and third toes Surgical sites along left medial malleolus, upper thigh, low abdomen clean dry and intact without surrounding erythema Psychiatric: She has a normal mood and affect. Her behavior is normal. Nursing note and vitals reviewed. Diagnostic Testing ED Labs Ordered and Reviewed - No data to display Procedures Medical Decision Making MDM ED Course / Clinical Impression ED Course as of Nov 24 1707 Liz Thompson's Documentation Tue November 23, 2017 1635 ED EKG INTERPRETATION: Normal sinus rhythm at 62 beats per minute Normal axis Normal intervals Normal ST-T segments Clinical Impressions as of Nov 24 1707 Cellulitis of toe of left foot Labs and imaging unremarkable. Afebrile, AVSS Patient given a dose of IV antibiotics. Seen by vascular surgery, recommend discharge home with oral antibiotics and follow up in outpatient clinic this week. Patient is comfortable with this plan. Strict return precautions given. Plan 52-year-old female with history of peripheral vascular disease presenting with left toe discoloration after bypass surgery 1 week ago also with purulent drainage concerning for r/o ischemia/necrosis, infection. The Patient was DISCHARGED: Counseled patient regarding suspected diagnosis AND need for follow-up. Discharged home with verbal and written instructions. They were instructed to return as needed for persistent or worsening symptoms or any new concerns. Condition at time of disposition: stable SIGNATURE: MD Ruba Lucio Lara 11/23/17 1710 CNDS Observed: 11/15/2017 Status: COMPLETED Source: [place] 4:58 PM CLINIC OTHER CAMPUS REPOSITORY HNO ID: [id number] Author: Cyndy Espinosa MD Service: Vascular Surgery Author Type: Resident Type: Discharge Summaries Filed: 11/15/2017 6:19 PM Note Text: Attestation signed by Flo Aragon at 11/16/2017 3:47 PM [facility] STAFF PHYSICIAN NOTE OF PERSONAL INVOLVEMENT IN CARE I have reviewed the discharge summary obtained and documented by the resident and I personally participated in the mcadams components. I have discussed the case and management of the patient's care. The following comments revise or confirm relevant mcadams components of their note. Agree with above Flo Aragon MD Staff, Vascular Surgery November 16, 2017 3:47 PM Department of Vascular Surgery Discharge Summary Patient Name: Neil Mendenhall Patient Admission Date: 11/11/2017 Discharge Date: 11/15/2017 0 Attending Physician: Angel Baig MD Primary Service: Vascular surgery Admission Diagnosis: LLE Critical limb ischemia Discharge Diagnosis: LLE Critical limb ischemia Reason for Hospitalization: This is a 52 year old F with PMH of DM, bipolar disorder, known vasculopath s/p multiple vascular procedures of left lower extremity who presented to the ER on 11/11/17 with acute onset right foot pain and right 2nd toe and forefoot discoloration. She was admitted under vascular surgery service and heparin low dose nomogram was initiated. She underwent LLE angiography on 11/12/[address] Aragon and was found to have occlusion of SFA and PT, subsequently failed in attempt of endovascular repair. She was brought to the OR the same day for a Left INTERNET ASSESSOR to AK pop bypass with 7mm PTFE ringed graft with left distal PT exposure. Post procedure, she recovered in ICU and was transferred to [facility] on POD 1. During her subsequent hospital days, her motor and sensory function was improving and she has biphasic DP/PT pedal signals. She tolerated a regular diet and is able to ambulate with none to minimal assistance. She was transition from heparin to Eliquis on 11/15/2017 after it was determined that she will not require further surgical intervention during this admission. Her pain was initially controlled by STUDY ABROAD ADVISOR, and was well controlled on oral medication on the day of discharge. She was instructed to return to Dr. Aragon's clinic on 11/30/17 for follow up. Operations during Hospitalization: 11/11/17 Left common femoral to above knee popliteal bypass with 7mm ringed PTFE Left distal PT exposure by the medial malleolus Hospital Course: * How was the Chief Complaint Addressed: Surgical intervention - Left INTERNET ASSESSOR to AK pop bypass with PTFE graft * What were the Active Issues: Initiating new anticoagulant, awaiting hypercoaguability studies * Hospital Course Complicated by: None * Extended Hospital Stay Due to: NA * Specific Medication Changes: Initiated apixaban 2.5mg BID * ID/Microbiology: NA * Pain: Pain well controlled on roxicodone PRN and scheduled tylenol * Surgical Incisions/Wounds: Left groin incision and medial knee incision clean dry and intact, with subcuticular suture and skin glue. Left medial malleolar incision with vertical mattress suture. * Pulses: Left PT/DP and distal anastomosis site biphasic signals * PT/OT: Home PT/OT * Patient Condition at Discharge: Improved * Disposition: Home with Home Health Care Problem List: Patient Active Hospital Problem List: Critical lower limb ischemia (11/10/2017) Hyperlipidemia (04/21/2014) Bipolar disorder (HCC) (04/21/2014) Neuropathic pain (04/21/2014) Consults: None Procedures Performed and Major Radiology: Information Provided to the Patient: Patient given copy of After Visit Summary which included activity instructions, diet instructions, wound care instructions, medication instructions and follow up appointment Discharge Medications: Discharge Medication List as of 11/15/2017 4:26 PM START taking these medications oxyCODONE IR (ROXICODONE) 5 mg immediate release tablet Take 1-2 tablets by mouth every 6 hours as needed for Pain for up to 7 days. Print RX, Disp-28 tablet, R-0 Dx: 1. Ischemic pain of foot, left 2. PAD (peripheral artery disease) ([facility]) CONTINUE these medications which have CHANGED apixaban (ELIQUIS) 2.5 mg tab tab(s) Take 1 tablet by mouth twice daily. Print RX, Disp-60 tablet, R-5 acetaminophen (TYLENOL) 325 mg tablet Take 2 tablets by mouth every 6 hours. Print RX, Disp-60 tablet, R-0 docusate sodium (COLACE) 100 mg capsule Take 1 capsule by mouth twice daily. Print RX, Disp-60 capsule, R-2 CONTINUE these medications which have NOT CHANGED clopidogrel (PLAVIX) 75 mg tablet Take 1 tablet by mouth once daily. Print RX, Disp-30 tablet, R-2 nitroglycerin (NITRO-BID) 2 % ointment Apply 0.5 g as directed twice daily. Apply in the morning and remove at night Print RX, Disp-30 g, R-0 NIFEdipine ER (PROCARDIA XL) 30 mg 24 hr tablet Take 1 tablet by mouth once daily. Normal, Disp-30 tablet, R-3 Cholecalciferol, Vitamin D3, 5,000 unit cap Take 5,000 Units by mouth once daily. Historical Med pregabalin (LYRICA) 225 mg capsule Take 225 mg by mouth twice daily. Historical Med aspirin 81 mg chewable tablet Take 1 tablet by mouth once daily. OTC, R-0 pravastatin (PRAVACHOL) 20 mg tablet Take 20 mg by mouth once daily. Historical Med lamoTRIgine (LAMICTAL) 200 mg tablet Take 200 mg by mouth once daily. Historical Med aripiprazole(ABILIFY 20 MG TAB) Take one(1) tablet daily. Med Update, R-0 STOP taking these medications oxyCODONE-acetaminophen (PERCOCET) 5-325 mg tablet Comments: Reason for Stopping: Outpatient Management: * Are there important medication changes and/or outstanding issues that need to be addressed: Initiated apixaban 2.5mg BID * What is the plan for follow up: As below: Future Appointments: Future Appointments Date Time Provider Department Center 11/30/2017 2:00 PM [id number], [facility] Electronically SIGNED by Licensed Independent Practitioner: Cyndy Espinosa MD CASE MANAGEM Observed: 11/15/2017 Status: COMPLETED Source: [facility] 4:08 PM CLINIC OTHER [place] REPOSITORY HNO ID: [id number] Author: Sejal Samuel RN Service: Care Management Author Type: Registered Nurse Type: Care Mgt Progress Note Filed: 11/15/2017 4:15 PM Note Text: CARE MANAGEMENT DISCHARGE NOTE SERVICE DATE: 11/15/2017 SERVICE TIME: 4:08 PM LOS: 4 days Admission Date: 11/11/2017 DISCHARGE ARRANGEMENT (list agency and phone number) Home care Provider: [facility] CAREGIVER ASSESSMENT: Caregiver is ready, willing and able to meet the patient's needs as recommended by the inter-professional team? Yes Patient's transition needs and plan for meeting these needs: [facility] Does the patient have an acute stroke diagnosis, or has the patient had a stroke during this admission? No HANDOFF COMMUNICATION: [facility] TRANSPORTATION ARRANGEMENTS: N/A ADDITIONAL CONTACT RESOURCES: Plan is for dc today. [facility] will SOC 11-17-2017 Pt was informed. Pt was given the phone number by Celena SMITH . SIGNATURE: Sejal Samuel RN,BSN PATIENT NAME: Neil Mendenhall DATE: November 15, 2017 TIME: 4:08 PM PAGER/CONTACT #: [phone] PLAN OF CARE Observed: 11/15/2017 Status: COMPLETED Source: [place] 2:36 PM [facility] OTHER CAMPUS REPOSITORY HNO ID: [id number] Author: Kindra Montoya (Pharmacist) Service: Pharmacy Author Type: Pharmacist Type: Plan of Care Filed: 11/15/2017 2:36 PM Note Text: DISCHARGE MEDICATION REVIEW BY PHARMACY Patient Name: Neil Mendenhall Admission Date: 11/11/2017 Date of Contact: November 15, 2017 Time of Contact: 2:36 PM Medication list was reviewed by a Pharmacist for drug interactions or drug related problems:Yes Below is a summary of pharmacist recommendations discussed with LIP: No Recommendations at this time from Discharge Medication List. Kindra Montoya, Pharmacist November 15, 2017 2:36 PM Pager: [phone] 11/15/2017 2:36 PM Medication List START taking these medications acetaminophen 325 mg tablet Commonly known as: TYLENOL Take 2 tablets by mouth every 6 hours. apixaban 2.5 mg Tab tab(s) Commonly known as: ELIQUIS Take 1 tablet by mouth twice daily. docusate sodium 100 mg capsule Commonly known as: COLACE Take 1 capsule by mouth twice daily. oxyCODONE IR 5 mg immediate release tablet Commonly known as: ROXICODONE Take 1-2 tablets by mouth every 6 hours as needed for Pain for up to 7 days. CONTINUE taking these medications ABILIFY 20 mg tablet Generic drug: ARIPiprazole Take one(1) tablet daily. aspirin 81 mg chewable tablet Take 1 tablet by mouth once daily. Cholecalciferol (Vitamin D3) 5,000 unit Cap clopidogrel 75 mg tablet Commonly known as: PLAVIX Take 1 tablet by mouth once daily. LaMICtal 200 mg tablet Generic drug: lamoTRIgine LYRICA 225 mg capsule Generic drug: pregabalin NIFEdipine ER 30 mg 24 hr tablet Commonly known as: PROCARDIA XL Take 1 tablet by mouth once daily. nitroglycerin 2 % ointment Commonly known as: NITRO-BID Apply 0.5 g as directed twice daily. Apply in the morning and remove at night PRAVACHOL 20 mg tablet Generic drug: pravastatin STOP taking these medications oxyCODONE-acetaminophen 5-325 mg tablet Commonly known as: PERCOCET Where to Get Your Medications Information about where to get these medications is not yet available Ask your nurse or doctor about these medications ? acetaminophen 325 mg tablet ? apixaban 2.5 mg Tab tab(s) ? docusate sodium 100 mg capsule ? oxyCODONE IR 5 mg immediate release tablet CASE MANAGEM Observed: 11/15/2017 Status: COMPLETED Source: [place] 10:22 AM [facility] REPOSITORY HNO ID: [id number] Author: Sejal Mari) SARAH Samuel Service: Care Management Author Type: Registered Nurse Type: Care Mgt Progress Note Filed: 11/15/2017 10:55 AM Note Text: CARE MANAGEMENT PROGRESS NOTE SERVICE DATE: 11/15/2017 SERVICE TIME: 10:22 AM LOS: 4 days Needs Prior to Discharge: Home Care Order;OT/PT Evaluation Previous CM notes reviewed. This CM met with pt at bedside. IPTA. s/p Left femoral-above popliteal bypass with graft 11/11/2017 Pt lives alone. Friend will transport home to [facility]. Pt is accepted by [facility], however, pt states she does not believe she needs [facility]. An update was sent to [facility].. SIGNATURE: Sejal Samuel RN,BSN PATIENT NAME: Neil Mendenhall DATE: November 15, 2017 TIME: 10:22 AM PAGER/CONTACT #: [phone] NURSING PROG Observed: 11/15/2017 Status: COMPLETED Source: [place] 7:39 AM [facility] REPOSITORY HNO ID: [id number] Author: Celena Mari) SARAH Stanford Service: (none) Author Type: Registered Nurse Type: Nursing Progress Note Filed: 11/15/2017 7:41 AM Note Text: Nursing Progress Note Patient Name: Neil Mendenhall Patient Location: [place] [address] [address] Daily Note: 0740: spoke with Dr. Campos at this time and instructed that patient's current heparin gtt infusion can remain at 1800U/hr (current rate) and to discontinue gtt an hour after AM Eliquis dose. This note was completed by: Celena Stanford RN PROGRESS Observed: 11/15/2017 Status: COMPLETED Source: [place] 7:16 AM CLINIC OTHER CAMPUS REPOSITORY HNO ID: [id number] Author: Gabbie Campos Service: Vascular Surgery Author Type: Resident Type: Progress Notes Filed: 11/15/2017 7:21 AM Note Text: [facility]ULAR [facility] POSTOP PROGRESS NOTE Service Date: 11/15/17Admit Date: 11/11/2017Service Time: 7:54 AM LOS: 4 day(s) Primary Service: Vascular Surgery Vascular Physician: Flo Aragon M.D Interval Events/Issues: No acute events overnight. Continue doing well. Pain well controlled, no nausea/emesis, tolerating diet. Subjective Current hospital medications: HYDROmorphone 0.2 mg injection (DILAUDID) 0.2 mg INTRAVENOUS q 4 H PRN heparin iv infusion (LOW DOSE ACS/NOMOGRAM) 25,000 units in NaCl 0.45% 250 mL PREMIX 0-3,000 Units/hr INTRAVENOUS CONTINUOUS heparin RATE CHANGE bolus 1,000-4,000 Units for subtherapeutic aptt results 1,000-4,000 Units INTRAVENOUS PRN hydrALAZINE 10 mg injection (APRESOLINE) 10 mg INTRAVENOUS q 2 H PRN docusate sodium 100 mg cap(s) (COLACE) 100 mg ORAL BID ondansetron 4 mg tab(s) (ZOFRAN) 4 mg ORAL q 6 H PRN ondansetron (PF) 4 mg injection (ZOFRAN) 4 mg INTRAVENOUS q 6 H PRN oxyCODONE IR 5-10 mg tab(s) (ROXICODONE) 5-10 mg ORAL q 4 H PRN acetaminophen 650 mg tab(s) (TYLENOL) 650 mg ORAL q 6 H lidocaine 5 % 1 Patch (LIDODERM) 1 Patch TRANSDERMAL DAILY lidocaine patch - REMOVE OTHER DAILY lidocaine - VERIFY PATCH OTHER q 8 H diphenhydrAMINE 12.5 mg injection (BENADRYL) 12.5 mg INTRAVENOUS q 6 H PRN ARIPiprazole 20 mg tab(s) (ABILIFY) 20 mg ORAL DAILY lamoTRIgine 200 mg tab(s) (LaMICtal) 200 mg ORAL DAILY simvastatin 10 mg tab(s) (ZOCOR) 10 mg ORAL DAILY aspirin 81 mg chewable tab(s) 81 mg ORAL DAILY cholecalciferol 5,000 Units tab(s) (VITAMIN D3) 5,000 Units ORAL DAILY NIFEdipine XL 30 mg tab(s) (ADALAT CC) 30 mg ORAL DAILY clopidogrel 75 mg tab(s) (PLAVIX) 75 mg ORAL DAILY ALLERGIES Allergen Reactions - Horizant [Gabapenti* Mental Status Change - Wellbutrin [Bupropi* Other: See Comments Took med on Wednesday Woke up 3 days later in hospital Objective PHYSICAL EXAM: 11/14/17 1920 11/14/17 2338 11/15/17 0324 11/15/17 0533 BP: 125/53 121/59 146/66 Pulse: 86 85 83 Resp: 16 16 16 Temp: 36.9 ?C (98.4 ?F) 36.7 ?C (98 ?F) 36.6 ?C (97.9 ?F) TempSrc: Oral Oral Oral SpO2: 95% 99% 97% Weight: 78.9 kg (174 lb) Height: Intake/Output Summary (Last 24 hours) at 11/15/17 0717 Last data filed at 11/15/17 0600 Gross per 24 hour Intake 1396 ml Output 2600 ml Net -1204 ml CONSTITUTIONAL: Well nourished and No acute distress NEUROLOGIC/PSYCHIATRIC: Oriented to time, place AND person and Alert HEENT: Fair dentition LUNGS: Respiratory effort: normal on RA HEART: Regular rate AND rhythm ABDOMEN: Soft and Non-tender INTEGUMENTARY: Wound - No . Left 2nd toe blue discoloration. Brisk capillary efill in all toes except 2nd toe. SURGICAL SITES: Lower extremity - LLE; Clean, dry and intact MUSCULOSKELETAL: Sensation intact, flexion/extension of L digits improving. Pulses/Signals: Left PT/DP biphasic signal DATA: Laboratory: CBC, Coags, BMP, Mg, Phos Recent Labs 11/15/17 0558 11/15/17 0557 11/14/17 1026 11/14/17 0436 11/13/17 1010 11/13/17 1009 11/13/17 0412 WBC -- 8.23 -- 8.38 -- -- -- 8.81 HB -- 10.1* -- 10.0* -- -- -- 10.2* HCT -- 32.0* -- 31.2* -- -- -- 32.4* PLT -- 494* -- 440* -- -- -- 416* INR -- -- -- -- -- 1.0 1.0 -- APTT 48.3* -- 54.9* 61.3* < > 43.6* 39.0* -- NA -- -- -- 137 -- -- -- 139 K -- -- -- 3.5 -- -- -- 3.5 CHLOR -- -- -- 104 -- -- -- 106 CO2 -- -- -- 21* -- -- -- 22* BUN -- -- -- 6* -- -- -- 9 CREAT -- -- -- 0.59* -- -- -- 0.69* GLUC -- -- -- 96 -- -- -- 120* CA -- -- -- 8.4* -- -- -- 8.2* < > = values in this interval not displayed. Assessment/Plan Impression: This is a 52 year old female w h/o LLE critical limb ischemia, POD 4 s/p L fem-AK pop bypass w graft and left distal PT exposure. Plan: - Diet: Continue HHD - GI: Bowel regimen - Resp: BPH, IS - CVS/Heme: Continue ASA/Plavix/statin. Continue low dose heparin gtt. Hypercoaguability panel pending. Will discuss with staff transition to [facility] - Renal: UOP adequate, creatinine stable - ID: Afebrile, no leukocytosis, no indication for antibiotics - Activity: OOB, ambulate as able - Pain control: Wean STUDY ABROAD ADVISOR, continue oral PO marzena and tylenol - Pending results: Hypercoaguability diagnostic panel - Prophylaxis: DVT prophylaxis, SCDs - Dispo: Care in RNF, PT/OT - possible dc today vs tomorrow pending pain control Gabbie Campos MD PGY-2 General Surgery [id number] APTT Collected: 11/15/2017 Status: F Source: [place] 5:58 AM [facility] OTHER C[facility]US REPOSITORY TYPE CODE TESTS RESULT OUT OF RANGE REFERENCE UNITS LAB APTT 23.0-32.4 sec High APTT 48.3 Result Comment: Unfractionated Heparin Therapeutic Ranges: Standard Heparin Nomogram: 53 to 78 seconds (anti-Xa level of 0.3 to 0.7 U/ml) Low Dose/ACS Nomogram: 49 to 67 seconds (anti-Xa level of 0.2 to 0.5 U/ml) Stroke Treatment Nomogram: 49 to 67 seconds (anti-Xa level of 0.2 to 0.5 U/ml) Note: The APTT therapeutic range has been determined for the current lot of laboratory APTT reagent in use throughout the [facility]. Performed By: #### PTT #### [place] [address] CBC Collected: 11/15/2017 Status: F Source: [place] 5:57 AM [facility] REPOSITORY TYPE CODE TESTS RESULT OUT OF REFERENCE UNITS RANGE LAB WBC 3.70-11.00 k/uL WBC 8.23 LAB RBC 3.90-5.20 m/uL Low RBC 3.68 LAB HGB 11.5-15.5 g/dL Low Hemoglobin 10.1 LAB HCT 36.0-46.0 % Low Hematocrit 32.0 LAB MCV 80.0-100.0 fL MCV 87.0 LAB MCH 26.0-34.0 pG MCH 27.4 LAB MCHC 30.5-36.0 g/dL MCHC 31.6 LAB RDWCV 11.5-15.0 % RDW-CV 14.5 LAB PLTCT 150-400 k/uL Platelet High Count 494 LAB MPV 9.0-12.7 fL MPV 9.6 Performed By: #### CBC, BMP #### [id number] [place] [address] BASIC METABOLIC PANL Collected: 11/15/2017 Status: F Source: [place] 5:57 AM [facility] OTHER [place] REPOSITORY TYPE CODE TESTS RESULT OUT OF REFERENCE UNITS RANGE LAB GLU 65-100 mg/dL Glucose High 102 LAB BUN 8-25 mg/dL BUN 8 LAB CRET 0.70-1.40 mg/dL Low Creatinine 0.63 LAB NA 132-148 mmol/L Sodium 139 LAB K 3.5-5.0 mmol/L Potassium 3.7 LAB CL 98-110 mmol/L Chloride 103 LAB CO2 23-32 mmol/L Low CO2 20 LAB AGAP 9-18 mmol/L Anion Gap 16 LAB CA 8.5-10.5 mg/dL Calcium, Total 8.5 LAB GFRAA >60 eGFR- >60 Amer. LAB GFRNAA >60 . eGFR-All Other Races >60 Performed By: #### CBC, BMP #### [place] [address] NURSING PROG Observed: 11/15/2017 Status: COMPLETED Source: [place] 2:08 AM [facility] REPOSITORY HNO ID: [id number] Author: Jose JeffriesRn) SARAH Olsen Service: (none) Author Type: Registered Nurse Type: Nursing Progress Note Filed: 11/15/2017 2:18 AM Note Text: Nursing Progress Note Patient Name: Neil Mendenhall Patient Location: [address]/ Daily Note:Pt AANDOx3. On heparin gtt @18ml/hr. Pain controlled with STUDY ABROAD ADVISOR pump and prn meds. Pulses doppled, incisions c/d/I. Up with one assist. 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 This note was completed by: Khalida Charles RN APTT Collected: 11/14/2017 Status: F Source: [place] 10:26 AM [facility] OTHER CAMPUS REPOSITORY TYPE CODE TESTS RESULT OUT OF RANGE REFERENCE UNITS LAB APTT 23.0-32.4 sec High APTT 54.9 Result Comment: Unfractionated Heparin Therapeutic Ranges: Standard Heparin Nomogram: 53 to 78 seconds (anti-Xa level of 0.3 to 0.7 U/ml) Low Dose/ACS Nomogram: 49 to 67 seconds (anti-Xa level of 0.2 to 0.5 U/ml) Stroke Treatment Nomogram: 49 to 67 seconds (anti-Xa level of 0.2 to 0.5 U/ml) Note: The APTT therapeutic range has been determined for the current lot of laboratory APTT reagent in use throughout the [facility]. Performed By: #### PTT #### [place] [address] PROTHROMBIN GENE PCR Collected: 11/14/2017 Status: F Source: [place] 10:26 [facility] REPOSITORY TYPE CODE TESTS RESULT OUT OF REFERENCE UNITS RANGE LAB PTINT PT Gene Duplicate Report request Result Comment: PTGENE ORDERED Performed By: #### PTGEN #### [place] [address] PROTEIN C FUNCTIONAL Collected: 11/14/2017 Status: F Source: [place] 10:26 [facility] OTHER [place] REPOSITORY TYPE CODE TESTS RESULT OUT OF REFERENCE UNITS RANGE LAB PRCFUN 76-147 % Protein C Functional 138 Performed By: #### PRCFUN, AT3ASY, PROTSI, JAK2 #### [facility] [address] [address] ANTITHROMBIN ASSAY Collected: 11/14/2017 Status: F Source: [place] 10:26 [facility] OTHER [place] REPOSITORY TYPE CODE TESTS RESULT OUT OF REFERENCE UNITS RANGE LAB AT3ASY 84-138 % Antithrombin Assay 89 Performed By: #### PRCFUN, AT3ASY, PROTSI, JAK2 #### [facility] [address] [place], [place] [address] PROT S IMMUNOLOGIC Collected: 11/14/2017 Status: F Source: [place] 10:26 AM [facility] OTHER CAMPUS REPOSITORY TYPE CODE TESTS RESULT OUT OF REFERENCE UNITS RANGE LAB TPROTS 74-156 % Total Protein 120 S LAB FPROTS 55-148 % Free Protein 100 S Performed By: #### PRCFUN, AT3ASY, PROTSI, JAK2 #### [facility] [address] [place], [place] [address] JAK2 V617F MUTATION Collected: 11/14/2017 Status: F Source: [place] 10:26 AM [facility] OTHER CAMPUS REPOSITORY TYPE CODE TESTS RESULT OUT OF REFERENCE UNITS RANGE LAB JAK2ST JAK2 Peripheral Blood V617F Spec Type LAB JAK2I Result: JAK2 JAK2 V617F V617F Interp Mutation Not Detected Result Comment: Interpretation: The JAK2 V617F Mutation was not detected. The V617F point mutation has been reported in a high percentage of cases of polycythemia vera, approximately half of the cases of essential thro mbocythemia and chronic idiopathic myelofibrosis, and in a smaller proportion of other myeloid disorders. (NOTE) Methodology: Following DNA extraction and library construction utilizing the custom Cancer Hotspot Panel v.1 ([employer], [place], [place]), DNA sequencing of gene mutation hotspot regions was performed on the MiSeq instrument ([employer], [place], [place]). Aerob software ([employer], [place], [place]) was used to analyze FASTQ files to identify hotspot mutations in requested genes. Test Limitations: Sequence changes outside the analyzed mutation hotspots, including intronic, non-coding, and splice site variants, will not be identified by this test. Insertions and deletions larger than 20 and 40 bp, respectively, may not be identified by this test. The lower limit of detection of this assay is approximately 5% allele proportion. Variants below 5% allele proportion may be reported at the discretion of the molecular pathology professional staff if the technical quality of the sequencing is sufficient at that location and the call is unequivocal. Common germline polymorphisms are considered to represent wild type sequence and are not included in this report. The presence of nucleotide polymorphisms or variants at the annealing sites of the primers used in amplification and sequencing may cause allele drop-outs, hence a false negative result is possible. This test was developed and its performance characteristics determined by [facility] [place] ([facility]). It has not been cleared or approved by the FDA. [facility] is regulated under CLIA as qualified to perform high-complexity testing. This test is used for clinical purposes. It should not be regarded as investigational or for research. References: Jean Paul DA, Ervin A, Garrickerchance R, Jolynn J, Borowitz MJ, Oleg Shabazz MM, et al. The 2016 revision to the World Health Organization (WHO) classification of myeloid neoplasms and acute leukemia. Blood 2016;127: 2391-405. Tedavidi A, Skoda R, Rocaelman JW. Myeloproliferative neoplasms: contemporary diagnosis using histology and genetics. Chrissie Rev Clin Oncol 2009;6:627-37. LAB MOLREV Molecular Reviewed by Damien Berry MD ([id number]) Performed By: #### PRCFUN, AT3ASY, PROTSI, JAK2 #### [facility] [address], [place] [address] FACTOR V LEIDEN PCR Collected: 11/14/2017 Status: F Source: [place] 10:26 AM [facility] REPOSITORY TYPE CODE TESTS RESULT OUT OF REFERENCE UNITS RANGE LAB LEIINT FV Leiden (NOTE) Report Result Comment: Performing Pathologist: Celena Lamb M.D. Factor V Leiden Mutation Result: NORMAL Interpretation: The patient is negative for the Factor V Leiden, the Arginine 506/Glutamine 506 genetic polymorphism. The Factor V Leiden assay may fail to detect less than 5% of individuals with activated protein C resistance who do not have the Arginine 506/Glutamine 506 point mutation.This may be detected by ordering the functional assay for Activated Protein C Resistance. Other causes of thromboembolic disease are not ruled out by a normal Factor V Leiden result. Method: This assay was performed by polymerase chain reaction and fluorescence monitoring using hybridization probes. Performed By: #### FVLEI #### [facility] [address], [place] [address] PROGRESS Observed: 11/14/2017 Status: COMPLETED Source: [place] 7:52 AM [facility] REPOSITORY HNO ID: [id number] Author: Cyndy Hays (Igor Espinosa MD Service: Vascular Surgery Author Type: Resident Type: Progress Notes Filed: 11/14/2017 8:02 AM Note Text: [facility] POSTOP PROGRESS NOTE Service Date: 11/14/2017Admit Date: 11/11/2017Service Time: 7:54 AM LOS: 3 day(s) Primary Service: Vascular Surgery Vascular Physician: Ranjith Jones Events/Issues: No acute events overnight. Continue doing well. Subjective Current hospital medications: heparin iv infusion (LOW DOSE ACS/NOMOGRAM) 25,000 units in NaCl 0.45% 250 mL PREMIX 0-3,000 Units/hr INTRAVENOUS CONTINUOUS heparin RATE CHANGE bolus 1,000-4,000 Units for subtherapeutic aptt results 1,000-4,000 Units INTRAVENOUS PRN NaCl 0.9% iv infusion 5-30 mL/hr INTRAVENOUS CONTINUOUS hydrALAZINE 10 mg injection (APRESOLINE) 10 mg INTRAVENOUS q 2 H PRN docusate sodium 100 mg cap(s) (COLACE) 100 mg ORAL BID ondansetron 4 mg tab(s) (ZOFRAN) 4 mg ORAL q 6 H PRN ondansetron (PF) 4 mg injection (ZOFRAN) 4 mg INTRAVENOUS q 6 H PRN HYDROmorphone STUDY ABROAD ADVISOR 0.5 mg/mL in NaCl 0.9% 100 mL INTRAVENOUS CONTINUOUS HYDROmorphone 0.5 mg/mL STUDY ABROAD ADVISOR CLINICIAN DOSE 0.2 mg 0.2 mg INTRAVENOUS q 6 H PRN oxyCODONE IR 5-10 mg tab(s) (ROXICODONE) 5-10 mg ORAL q 4 H PRN acetaminophen 650 mg tab(s) (TYLENOL) 650 mg ORAL q 6 H lidocaine 5 % 1 Patch (LIDODERM) 1 Patch TRANSDERMAL DAILY lidocaine patch - REMOVE OTHER DAILY lidocaine - VERIFY PATCH OTHER q 8 H diphenhydrAMINE 12.5 mg injection (BENADRYL) 12.5 mg INTRAVENOUS q 6 H PRN ARIPiprazole 20 mg tab(s) (ABILIFY) 20 mg ORAL DAILY lamoTRIgine 200 mg tab(s) (LaMICtal) 200 mg ORAL DAILY simvastatin 10 mg tab(s) (ZOCOR) 10 mg ORAL DAILY aspirin 81 mg chewable tab(s) 81 mg ORAL DAILY cholecalciferol 5,000 Units tab(s) (VITAMIN D3) 5,000 Units ORAL DAILY NIFEdipine XL 30 mg tab(s) (ADALAT CC) 30 mg ORAL DAILY clopidogrel 75 mg tab(s) (PLAVIX) 75 mg ORAL DAILY ALLERGIES Allergen Reactions - Horizant [Gabapenti* Mental Status Change - Wellbutrin [Bupropi* Other: See Comments Took med on Wednesday Woke up 3 days later in hospital Objective PHYSICAL EXAM: Patient Vitals for the past 24 hrs: BP Temp Temp src Pulse Resp SpO2 Weight 11/14/17 0743 145/70 36.9 ?C (98.4 ?F) Oral 80 16 96 % - 11/14/17 0600 - - - - - - 81.1 kg (178 lb 12.7 oz) 11/14/17 0349 144/68 36.7 ?C (98.1 ?F) Oral 93 16 98 % - 11/13/17 2300 132/57 36.9 ?C (98.5 ?F) Oral 85 17 97 % - 11/13/17 2019 128/58 37.6 ?C (99.7 ?F) Oral 80 18 96 % - 11/13/17 1619 119/67 36.6 ?C (97.9 ?F) Oral 86 16 98 % - 11/13/17 1149 131/57 37.3 ?C (99.1 ?F) Oral 92 17 96 % - 11/13/17 0801 127/57 37.4 ?C (99.4 ?F) Oral 92 17 94 % - Intake/Output Summary (Last 24 hours) at 11/14/17 0754 Last data filed at 11/14/17 0500 Gross per 24 hour Intake 845 ml Output 2900 ml Net -2055 ml CONSTITUTIONAL: Well nourished and No acute distress NEUROLOGIC/PSYCHIATRIC: Oriented to time, place AND person and Alert HEENT: Fair dentition LUNGS: Respiratory effort: normal on RA HEART: Regular rate AND rhythm ABDOMEN: Soft and Non-tender INTEGUMENTARY: Wound - No . Left 2nd toe discoloration. Brisk capillary efill in all toes except 2nd toe SURGICAL SITES: Lower extremity - LLE; Clean, dry and intact MUSCULOSKELETAL: No deformities Pulses/Signals: Left PT/DP biphasic signal DATA: Laboratory: Recent Labs 11/14/17 0436 11/13/17 0412 11/12/17 0210 WBC 8.38 8.81 9.66 HB 10.0* 10.2* 11.8 HCT 31.2* 32.4* 37.0 PLT 440* 416* 446* Recent Labs 11/14/17 0436 11/13/17 0412 11/12/17 0210 NA 137 139 136 K 3.5 3.5 4.1 BUN 6* 9 11 CREAT 0.59* 0.69* 0.72 GLUC 96 120* 130* MG -- -- 2.1 Recent Labs 11/14/17 0436 11/13/17202811/13/17 1216 11/13/17 1010 11/13/17 1009 11/12/17 0210 APTT 61.3* 45.0* 42.4* 43.6* 39.0* < > 25.9 INR -- -- -- 1.0 1.0 -- 1.0 < > = values in this interval not displayed. Assessment/Plan Impression: This is a 52 year old female w h/o LLE critical limb ischemia, POD3 s/p L fem-AK pop bypass w graft and left distal PT exposure. Plan: - Diet: Continue HHD - GI: Bowel regimen - colace - Resp: BPH, IS - CVS/Heme: H/H stable. Continue ASA/Plavix/statin. Continue low dose heparin gtt. Hypercoaguability panel sent - Renal: UOP adequate, creatinine stable - Neuro: Cognitive intact, alert oriented x 3 - ID: Afebrile, no leukocytosis, no indication for antibiotics - Activity: OOB, ambulate as able - Pain control: Continue current regimen - STUDY ABROAD ADVISOR dilaudid PO roxicodone and tylenol - Pending results: Hypercoaguability diagnostic panel - Prophylaxis: DVT prophylaxis, SCDs - Dispo: Care in RNF, PT/OT No problems updated. SIGNATURE: Cyndy Espinosa MD PATIENT NAME: Neil Mendenhall DATE: November 14, 2017 TIME: 7:54 AM PAGER/CONTACT #: [id number] CBC Collected: 11/14/2017 Status: F Source: [place] 4:36 AM [facility] OTHER CAMPUS REPOSITORY TYPE CODE TESTS RESULT OUT OF REFERENCE UNITS RANGE LAB WBC 3.70-11.00 k/uL WBC 8.38 LAB RBC 3.90-5.20 m/uL Low RBC 3.64 LAB HGB 11.5-15.5 g/dL Low Hemoglobin 10.0 LAB HCT 36.0-46.0 % Low Hematocrit 31.2 LAB MCV 80.0-100.0 fL MCV 85.7 LAB MCH 26.0-34.0 pG MCH 27.5 LAB MCHC 30.5-36.0 g/dL MCHC 32.1 LAB RDWCV 11.5-15.0 % RDW-CV 14.2 LAB PLTCT 150-400 k/uL Platelet High Count 440 LAB MPV 9.0-12.7 fL MPV 9.5 Performed By: #### CBC, BMP #### [facility] [address] [place] [address] BASIC METABOLIC PANL Collected: 11/14/2017 Status: F Source: [place] 4:36 AM [facility] OTHER [place] REPOSITORY TYPE CODE TESTS RESULT OUT OF REFERENCE UNITS RANGE LAB GLU 65-100 mg/dL Glucose 96 LAB BUN 8-25 mg/dL Low BUN 6 LAB CRET 0.70-1.40 mg/dL Low Creatinine 0.59 LAB NA 132-148 mmol/L Sodium 137 LAB K 3.5-5.0 mmol/L Potassium 3.5 LAB CL 98-110 mmol/L Chloride 104 LAB CO2 23-32 mmol/L Low CO2 21 LAB AGAP 9-18 mmol/L Anion Gap 12 LAB CA 8.5-10.5 mg/dL Low Calcium, Total 8.4 LAB GFRAA >60 eGFR- >60 Amer. LAB GFRNAA >60 . eGFR-All Other Races >60 Performed By: #### CBC, BMP #### [facility] [address] [place] [address] APTT Collected: 11/14/2017 Status: F Source: [place] 4:36 AM [facility] OTHER [place] REPOSITORY TYPE CODE TESTS RESULT OUT OF RANGE REFERENCE UNITS LAB APTT 23.0-32.4 sec High APTT 61.3 Result Comment: Unfractionated Heparin Therapeutic Ranges: Standard Heparin Nomogram: 53 to 78 seconds (anti-Xa level of 0.3 to 0.7 U/ml) Low Dose/ACS Nomogram: 49 to 67 seconds (anti-Xa level of 0.2 to 0.5 U/ml) Stroke Treatment Nomogram: 49 to 67 seconds (anti-Xa level of 0.2 to 0.5 U/ml) Note: The APTT therapeutic range has been determined for the current lot of laboratory APTT reagent in use throughout the [facility]. Performed By: #### PTT #### [place] [id number] APTT Collected: 11/13/2017 Status: F Source: [place] 8:29 PM [facility] REPOSITORY TYPE CODE TESTS RESULT OUT OF RANGE REFERENCE UNITS LAB APTT 23.0-32.4 sec High APTT 45.0 Result Comment: Unfractionated Heparin Therapeutic Ranges: Standard Heparin Nomogram: 53 to 78 seconds (anti-Xa level of 0.3 to 0.7 U/ml) Low Dose/ACS Nomogram: 49 to 67 seconds (anti-Xa level of 0.2 to 0.5 U/ml) Stroke Treatment Nomogram: 49 to 67 seconds (anti-Xa level of 0.2 to 0.5 U/ml) Note: The APTT therapeutic range has been determined for the current lot of laboratory APTT reagent in use throughout the [facility]. Performed By: #### PTT #### [place] [id number] NURSING PROG Observed: 11/13/2017 Status: COMPLETED Source: [place] 6:34 PM [facility] REPOSITORY HNO ID: [id number] Author: Madison (Rn) SARAH Mascorro Service: (none) Author Type: Registered Nurse Type: Nursing Progress Note Filed: 11/13/2017 6:36 PM Note Text: Nursing Progress Note Patient Name: Neil Mendenhall Patient Location: /[id number] Daily Note:Heparin continues.Ambulates to bathroom with walker and one assist.Alert and oriented.Sat in chair several times today. This note was completed by: Madison Mascorro RN APTT Collected: 11/13/2017 Status: F Source: [place] 12:16 PM [facility] REPOSITORY TYPE CODE TESTS RESULT OUT OF RANGE REFERENCE UNITS LAB APTT 23.0-32.4 sec High APTT 42.4 Result Comment: Unfractionated Heparin Therapeutic Ranges: Standard Heparin Nomogram: 53 to 78 seconds (anti-Xa level of 0.3 to 0.7 U/ml) Low Dose/ACS Nomogram: 49 to 67 seconds (anti-Xa level of 0.2 to 0.5 U/ml) Stroke Treatment Nomogram: 49 to 67 seconds (anti-Xa level of 0.2 to 0.5 U/ml) Note: The APTT therapeutic range has been determined for the current lot of laboratory APTT reagent in use throughout the [facility]. Performed By: #### PTT #### [place] [address] HYPERCOAG DIAG PNL Collected: 11/13/2017 Status: F Source: [place] 10:10 AM [facility] REPOSITORY TYPE CODE TESTS RESULT OUT OF REFERENCE UNITS RANGE LAB PRCFUN 76-147 % Protein C Functional 140 LAB PRSCLT 59-131 % Low Protein S Clottable 53 Result Comment: Result rechecked. The specimen was treated with heparinase to remove heparin activity from the plasma. LAB AT3ASY 84-138 % Antithrombin Assay 103 Result Comment: The specimen was treated with heparinase to remove heparin activity from the plasma. LAB APCR >2.06 APC Resistance 2.70 Result Comment: The specimen was treated with heparinase to remove heparin activity from the plasma. LAB FVIIIC 50-173 % High Factor VIII:C 266 Assay Result Comment: The specimen was treated with heparinase to remove heparin activity from the plasma. LAB HEXSCN 45.0-59.9 sec Hex Phase 56.8 Screen LAB HEXMIX 41.8-54.9 sec Hex Phase 43.4 Confirm LAB HEXDEL <9.1 delta sec High Hex Phase 13.4 Delta Result Comment: Result rechecked. LAB HYPINT Interpretation (NOTE) Result Comment: Performing Pathologist: Celena Lamb M.D. Abnormal - see comment below. SIGNIFICANT FINDINGS: 1. Lupus Anticoagulant: POSITIVE (see Lupus anticoagulant panel interpretation) 2. Elevated fibrinogen, factor VIII and C-reactive protein, consistent with acute phase response 3. Heparin-like drug effect A laboratory evaluation for congenital and acquired risk factors for thrombophilia was performed. Prolonged APTT with a normal PT. Heparin activity was detected in the plasma. The specimen was treated with heparin neutralizer to remove heparin activitiy from the plasma. After pre-treatment to remove heparin, the APTT was normal and no residual heparin activity was detected. LUPUS ANTICOAGULANT AND ANTIPHOSPHOLIPID ANTIBODY TESTING: The hexagonal phase phospholipid neutralization assay is positive. Please correlate with the separate lupus anticoagulant panel (11/13/17 at 1009 hours). The IgG, IgM and IgA anticardiolipin antibody titers were all negative. PROTEIN STUDIES: The elevated fibrinogen, factor VIII and C-reactive protein levels suggest an acute phase response. It has not been firmly established whether or not an elevated factor VIII in this setting is still a significant thrombophilic risk factor. Suggest rechecking the factor VIII, fibrinogen and CRP levels in 8- 12 weeks to determine whether the factor VIII is still elevated and the acute phase response has resolved. The level of C-reactive protein can be elevated for many reasons including an acute phase response, myocardial infarction, malignancy, infection, pancreatitis, acute trauma and some connective tissue disorders. Please correlate this result with clinical findings. Decreased clottable protein S with normal protein C and elevated factor VIII. Elevated factor VIII can spuriously lower clottable protein S levels, so this is unlikely to represent protein S deficiency. Suggest confirming with total/free protein S, which should be normal in this case. An elevated fVIII level, by itself, is thought to be a thrombotic risk factor. GENOTYPING STUDIES: The activated protein C resistance ratio (APC-R) is normal. The Factor V Leiden mutation is unlikely. The patient is negative for the [id number] mutation in the prothrombin gene. Please refer to the interpretation provided with the prothrombin genotyping result for further diagnostic and prognostic information. Other assay results were within the normal range. Please correlate these laboratory results with clinical findings and medication history. LAB CARDG 0-9 GPL IgG Cardiolipin Ab. <9 Result Comment: <10 GPL Negative 10-40 GPL Equivocal >40 GPL Positive The following results were obtained with the [employer] QUANTA Lite ROQUE IgG III VELMA. Cardiolipin IgG values obtained with the different manufacturers' assay methods may not be used interchangeably. The mag nitude of the reported IgG levels cannot be correlated to an endpoint titer. LAB CARDM 0-11 MPL IgM Cardiolipin Ab. <9 Result Comment: <12 MPL Negative 12-40 MPL Equivocal >40 MPL Positive The following results were obtained with the [employer] QUANTA Lite ROQUE IgM III VELMA. Cardiolipin IgM values obtained with different manufacturers' assay methods may not be used interchangeably. The magnitu de of the reported IgM levels cannot be correlated to an endpoint titer. LAB CARDA 0-11 APL IgA Cardiolipin Ab. <9 Result Comment: <12 APL Negative 12-40 APL Equivocal >40 APL Positive The following results were obtained with an [employer] QUANTA Lite ORQUE IgA III VELMA. Cardiolipin IgA values obtained with different manufacturers' assay methods may not be used interchangeably. The magnitud e of the reported IgA levels cannot be correlated to an endpoint titer. LAB HCYPL 3.4-12.9 umol/L Homocysteine, Plasma 6.8 LAB PSEC 9.7-13.0 sec PT Sec 10.6 LAB INR 0.9-1.3 PT INR 1.0 Result Comment: Vitamin K Antagonist (VKA) Therapeutic Range: INR 2 to 3 (Target INR of 2.5) Note: For patients treated with VKA drugs, such as warfarin, the [employer] 2012 Guideline recommends a therapeutic INR range of 2 to 3 (target INR of 2.5). This recommendation includes high-risk patients with antiphospholipid syndrome with previous arterial or venous thromboembolism, current-generation mechanical or bioprosthetic aortic heart valve replacement. Note: Patients with mechanical aortic valve replacement and additional risk factors for thromboembolic events (atrial fibrillation, previous thromboembolism, LV dysfunction, hypercoagulable conditions) or an older generation mechanical AVR (i.e., ball in-Cage) or any mechanical MVR should have a INR therapeutic range of 2.5 to 3.5 (target INR of 3). Nimesh GH, et al. Chest 2012, 141:7S-47S Dereck RA, et al. [facility] 2017, 70: 252-289 LAB APTT 23.0-32.4 sec High APTT 43.6 Result Comment: Unfractionated Heparin Therapeutic Ranges: Standard Heparin Nomogram: 53 to 78 seconds (anti-Xa level of 0.3 to 0.7 U/ml) Low Dose/ACS Nomogram: 49 to 67 seconds (anti-Xa level of 0.2 to 0.5 U/ml) Stroke Treatment Nomogram: 49 to 67 seconds (anti-Xa level of 0.2 to 0.5 U/ml) Note: The APTT therapeutic range has been determined for the current lot of laboratory APTT reagent in use throughout the [facility]. LAB FIBCT 200-400 mg/dL 719 High Fibrinogen LAB CRP 0.0-1.0 mg/dL 15.4 High C-Reactive Protein LAB PTMUT PT Gene Normal Mut Result LAB PTINT PT Gene The DNA sample Report is negative for the [id number] point mutation in the 3' untranslated region of the prothrombin gene. This is not associated with an increased risk of venous thrombosis. Result Comment: Venous thrombosis is a multifactorial disorder, and other causes of venous thrombosis are not excluded. This assay was performed by polymerase chain reaction and fluorescence monitoring using hybridization probes. LAB PTREV PT Reviewed by Celena Gene Review MD Adonis ([id number]) Performed By: #### HYPER #### [place] [address] [facility] [address] [address] LUPUS ANTICOAG PANEL Collected: 11/13/2017 Status: F Source: [place] 10:09 AM [facility] OTHER CAMPUS REPOSITORY TYPE CODE TESTS RESULT OUT OF RANGE REFERENCE UNITS LAB PSEC 9.7-13.0 sec PT Sec 10.6 LAB INR 0.9-1.3 PT INR 1.0 Result Comment: Vitamin K Antagonist (VKA) Therapeutic Range: INR 2 to 3 (Target INR of 2.5) Note: For patients treated with VKA drugs, such as warfarin, the [employer] 2012 Guideline recommends a therapeutic INR range of 2 to 3 (target INR of 2.5). This recommendation includes high-risk patients with antiphospholipid syndrome with previous arterial or venous thromboembolism, current-generation mechanical or bioprosthetic aortic heart valve replacement. Note: Patients with mechanical aortic valve replacement and additional risk factors for thromboembolic events (atrial fibrillation, previous thromboembolism, LV dysfunction, hypercoagulable conditions) or an older generation mechanical AVR (i.e., ball in-Cage) or any mechanical MVR should have a INR therapeutic range of 2.5 to 3.5 (target INR of 3). Nimesh GH, et al. Chest 2012, 141:7S-47S Dereck RA, et al. [facility] 2017, 70: 252-289 LAB APTT 23.0-32.4 sec High APTT 39.0 Result Comment: Unfractionated Heparin Therapeutic Ranges: Standard Heparin Nomogram: 53 to 78 seconds (anti-Xa level of 0.3 to 0.7 U/ml) Low Dose/ACS Nomogram: 49 to 67 seconds (anti-Xa level of 0.2 to 0.5 U/ml) Stroke Treatment Nomogram: 49 to 67 seconds (anti-Xa level of 0.2 to 0.5 U/ml) Note: The APTT therapeutic range has been determined for the current lot of laboratory APTT reagent in use throughout the [facility]. LAB PLTNEU Negative Negative PNP Result Comment: The specimen was treated with heparinase to remove heparin activity from the plasma. LAB DRVSCN 32.7-46.7 sec DRVVT Screen 44.9 LAB DRVRAT <1.21 DRVVT Confirm Ratio 1.08 LAB DRVMIX 32.7-46.7 sec DRVVT 1:1 Mix 42.4 LAB HEXSCN 45.0-59.9 sec Hex Phase Screen 57.2 Result Comment: Result rechecked. LAB HEXMIX 41.8-54.9 sec Hex Phase Confirm 42.5 Result Comment: Result rechecked. LAB HEXDEL <9.1 delta sec High Hex Phase 14.7 Delta Result Comment: Result rechecked. LAB APTTSC 24.4-33.4 sec High APTT Screen 69.2 LAB IMPTT <33.2 sec Immed. PTT 32.2 1:1 Mix Result Comment: The specimen was treated with heparinase to remove heparin activity from the plasma. LAB 1HRPTT <35.0 sec High Incub. PTT 1:1 36.0 Mix Result Comment: The specimen was treated with heparinase to remove heparin activity from the plasma. LAB TT <18.6 sec Thrombin Time High 42.7 LAB LUPINT Interpretation (NOTE) Result Comment: Performing Pathologist: Sha Barnes M.D. Abnormal - see comment below. SIGNIFICANT FINDINGS: 1. Lupus anticoagulant: POSITIVE. 2. Heparin effect. Laboratory testing was performed to evaluate the presence of a lupus anticoagulant and anti-phospholipid antibodies. The APTT value was prolonged with a normal PT/INR. Heparin activity was detected in the plasma. The specimen was treated with a heparin adsorbent reagent to remove heparin activity from the plasma. After pre-treatment to remove heparin, the APTT was still prolonged, but no residual heparin activity was detected. The elevated thrombin time (TT) corrects into the normal range after heparin neutralization. The elevated TT is consistent with a heparin effect. LUPUS ANTICOAGULANT STUDIES: This specimen meets all four ISTH criteria, including a positive screening test, a positive mixing study, demonstration of phospholipid dependence and exclusion of other coagulopathies or inhibitors. The laboratory findings are diagnostic of a lupus anticoagulant. The lupus anticoagulant is a type of anti-phospholipid antibody that is considered to be a risk factor for thrombosis. Suggest retesting in 12 weeks to confirm, as lupus anticoagulants may be transient. If positive testing is observed on two or more occasions at least 12 weeks apart, this may be indicative of the antiphospholipid antibody syndrome, if observed in the correct clinical setting. The criteria for the diagnosis of a Lupus Anticoagulant, as detailed by the Subcommittee on Lupus Anticoagulants and Anti-Phospholipid Antibodies of the Scientific and Standardization Committee of the International Society on Thrombosis and Haemostasis (ISTH), are the following: (1) A prolonged phospholipid-dependent clotting test (screening test); (2) Evidence for an inhibitor (1:1 mix of patient:normal plasma); (3) Evidence that the inhibitor is phospholipid dependent and (4) Exclusion of specific inhibitors (ie, fVIII inhibitors, direct thrombin inhibitors, or heparin). Thromb. Haemost. 74:1185 (1995). ANTIPHOSPHOLIPID ANTIBODY STUDIES: The IgG, IgM and IgA anticardiolipin antibody titers were all negative. Both the IgG and IgM Beta-2 Glycoprotein I antibody titers were negative. Please correlate these laboratory results with the concurrent hypercoagulation panel (performed on 11/13/17 at 1010 hours) clinical findings and medication history. LAB CARDG 0-9 GPL IgG Cardiolipin Ab. <9 Result Comment: <10 GPL Negative 10-40 GPL Equivocal >40 GPL Positive The following results were obtained with the [employer] QUANTA Lite ROQUE IgG III VELMA. Cardiolipin IgG values obtained with the different manufacturers' assay methods may not be used interchangeably. The mag nitude of the reported IgG levels cannot be correlated to an endpoint titer. LAB CARDM 0-11 MPL IgM Cardiolipin Ab. <9 Result Comment: <12 MPL Negative 12-40 MPL Equivocal >40 MPL Positive The following results were obtained with the [employer] QUANTA Lite ROQUE IgM III VELMA. Cardiolipin IgM values obtained with different manufacturers' assay methods may not be used interchangeably. The magnitu de of the reported IgM levels cannot be correlated to an endpoint titer. LAB CARDA 0-11 APL IgA Cardiolipin Ab. <9 Result Comment: <12 APL Negative 12-40 APL Equivocal >40 APL Positive The following results were obtained with an [employer]ova QUANTA Lite ROQUE IgA III VELMA. Cardiolipin IgA values obtained with different manufacturers' assay methods may not be used interchangeably. The magnitud e of the reported IgA levels cannot be correlated to an endpoint titer. LAB B2GPG <20 SGU Beta2 Glycoprot IgG <9 Result Comment: < 20 SGU Negative 20-80 SGU Low Positive > 80 SGU High Positive These results were obtained with the [employer] QUANTA Lite B2 GPI IgG VELMA. B2 GPI IgG values obtained with different manufacturers' assay methods may not be used interchangeably. The magnitude of the repo rted IgG levels cannot be correlated to an endpoint titer. LAB B2GPM <20 SMU Beta2 Glycoprot IgM <9 Result Comment: < 20 SMU Negative 20-80 SMU Low Positive > 80 SMU High Positive These results were obtained with the [employer] QUANTA Lite B2 GPI IgM VELMA. B2 GPI IgM values obtained with different manufacturers' assay methods may not be used interchangeably. The magnitude of the repo rted IgM levels cannot be correlated to an endpoint titer. Performed By: #### LUPUSP #### [place] [address] [place] [address] NURSING PROG Observed: 11/13/2017 Status: COMPLETED Source: [place] 10:00 AM CL[facility] OTHER CAMPUS REPOSITORY HNO ID: [id number] Author: Madison (Rn) SARAH Mascorro Service: (none) Author Type: Registered Nurse Type: Nursing Progress Note Filed: 11/13/2017 2:52 PM Note Text: Nursing Progress Note Patient Name: Neil Mendenhall Patient Location: -[id number] Daily Note:IV/heparin drip infusing well.Taking diet well.No n/v.Voiding clear yellow urine.Left groin incision line clean and well approximated.No drainage noted.Left foot dressing dry and intact.Toes cool and discolored,has some blacked areas-toes painful to touch. Pulses are doppled.Right [id number]-[id number] intact,no drainage noted.Up to chair,is unable to get comfortable when legs are elevated or down.Does stay up for a short time.Continues on tele-NSR.Using STUDY ABROAD ADVISOR dilaudid when needed. This note was completed by: Madison Mascorro RN PROGRESS Observed: 11/13/2017 Status: COMPLETED Source: [place] 7:40 AM CLINIC OTHER CAMPUS REPOSITORY HNO ID: [id number] Author: Herson Ramírez Service: Vascular Surgery Author Type: Physician Type: Progress Notes Filed: 11/13/2017 5:10 PM Note Text: [facility] V[facility]ULAR SURGERY PROGRESS NOTE Service Date: 11/13/2017Admit Date: 11/11/2017Service Time: 7:41 AM LOS: 2 day(s) Primary Service: Vascular Surgery Vascular Physician: Flo Aragon M.D Interval Events/Issues: Left DP is now dopplerable. Otherwise no acute events. Stable on the RNF. Pain well-controlled w oral pain meds and STUDY ABROAD ADVISOR. Tolerating diet. Has been OOBA. Subjective Current hospital medications: heparin iv infusion (LOW DOSE ACS/NOMOGRAM) 25,000 units in NaCl 0.45% 250 mL PREMIX 0-3,000 Units/hr INTRAVENOUS CONTINUOUS heparin RATE CHANGE bolus 1,000-4,000 Units for subtherapeutic aptt results 1,000-4,000 Units INTRAVENOUS PRN NaCl 0.9% iv infusion 5-30 mL/hr INTRAVENOUS CONTINUOUS hydrALAZINE 10 mg injection (APRESOLINE) 10 mg INTRAVENOUS q 2 H PRN docusate sodium 100 mg cap(s) (COLACE) 100 mg ORAL BID ondansetron 4 mg tab(s) (ZOFRAN) 4 mg ORAL q 6 H PRN ondansetron (PF) 4 mg injection (ZOFRAN) 4 mg INTRAVENOUS q 6 H PRN HYDROmorphone STUDY ABROAD ADVISOR 0.5 mg/mL in NaCl 0.9% 100 mL INTRAVENOUS CONTINUOUS HYDROmorphone 0.5 mg/mL STUDY ABROAD ADVISOR CLINICIAN DOSE 0.2 mg 0.2 mg INTRAVENOUS q 6 H PRN oxyCODONE IR 5-10 mg tab(s) (ROXICODONE) 5-10 mg ORAL q 4 H PRN acetaminophen 650 mg tab(s) (TYLENOL) 650 mg ORAL q 6 H lidocaine 5 % 1 Patch (LIDODERM) 1 Patch TRANSDERMAL DAILY lidocaine patch - REMOVE OTHER DAILY lidocaine - VERIFY PATCH OTHER q 8 H diphenhydrAMINE 12.5 mg injection (BENADRYL) 12.5 mg INTRAVENOUS q 6 H PRN ARIPiprazole 20 mg tab(s) (ABILIFY) 20 mg ORAL DAILY lamoTRIgine 200 mg tab(s) (LaMICtal) 200 mg ORAL DAILY simvastatin 10 mg tab(s) (ZOCOR) 10 mg ORAL DAILY aspirin 81 mg chewable tab(s) 81 mg ORAL DAILY cholecalciferol 5,000 Units tab(s) (VITAMIN D3) 5,000 Units ORAL DAILY NIFEdipine XL 30 mg tab(s) (ADALAT CC) 30 mg ORAL DAILY clopidogrel 75 mg tab(s) (PLAVIX) 75 mg ORAL DAILY ALLERGIES Allergen Reactions - Horizant [Gabapenti* Mental Status Change - Wellbutrin [Bupropi* Other: See Comments Took med on Wednesday Woke up 3 days later in hospital Objective PHYSICAL EXAM: Patient Vitals for the past 24 hrs: BP Temp Temp src Pulse Resp SpO2 Weight 11/13/17 0600 - - - - - - 82.1 kg (181 lb) 11/13/17 0350 127/58 36.9 ?C (98.5 ?F) Oral 100 18 95 % - 11/12/17 2318 126/63 37.1 ?C (98.7 ?F) Oral 81 16 - - 11/12/172025 104/55 36.9 ?C (98.5 ?F) Oral 68 16 95 % - 11/12/17 1842 127/64 36.6 ?C (97.9 ?F) Axillary 77 18 97 % - 11/12/17 1700 - - - 80 18 98 % - 11/12/17 1600 137/66 37.2 ?C (99 ?F) Oral 63 8 97 % - 11/12/17 1500 142/74 - - 78 12 95 % - 11/12/17 1400 107/59 - - 70 13 97 % - 11/12/17 1300 - - - 77 16 98 % - 11/12/17 1200 119/66 36.8 ?C (98.2 ?F) Oral 71 15 96 % - 11/12/17 1100 111/64 - - 72 11 95 % - 11/12/17 1058 - - - 72 13 95 % - 11/12/17 1055 - - - 74 8 94 % - 11/12/17 1000 107/58 - - 72 11 93 % - 11/12/17 0930 - - - 78 12 92 % - 11/12/17 0900 115/63 - - 102 18 89 % - 11/12/17 0848 - 37.4 ?C (99.3 ?F) Oral 99 14 92 % - 11/12/17 0800 118/75 - - 93 14 94 % - Intake/Output Summary (Last 24 hours) at 11/13/17 0740 Last data filed at 11/13/17 0606 Gross per 24 hour Intake 1425 ml Output 1130 ml Net 295 ml CONSTITUTIONAL: Well developed and Well nourished NEUROLOGIC/PSYCHIATRIC: Oriented to time, place AND person RESP: Breathing comfortably on RA ABDOMEN: Soft and Non-tender INTEGUMENTARY: Wound - Left foot appears slightly better perfused, although 2nd toe is remains cyanotic, tender. SURGICAL SITES: LLE incisions cdi MUSCULOSKELETAL: Left toe and ankle motor function diminished, sensation improved but continues to be diminished as well Pulses/Signals: Left DP and graft dopplerable this morning DATA: Laboratory: Recent Labs 11/13/17 0412 11/12/17 0210 11/11/17 0429 WBC 8.81 9.66 7.55 HB 10.2* 11.8 12.4 HCT 32.4* 37.0 39.3 PLT 416* 446* 561* Recent Labs 11/13/17 0412 11/12/17 0210 11/11/17 0429 NA 139 136 139 K 3.5 4.1 3.9 BUN 9 11 15 CREAT 0.69* 0.72 0.76 GLUC 120* 130* 101* MG -- 2.1 2.3 Recent Labs 11/13/17 0239 11/12/17 1651 11/12/17 1055 11/12/17 0210 11/10/17 1515 APTT 34.6* 30.2 26.5 25.9 < > 24.9 INR -- -- -- 1.0 -- 0.9 < > = values in this interval not displayed. Assessment/Plan Impression: This is a 52 year old female w h/o LLE critical limb ischemia, POD2 s/p L fem-AK pop bypass w graft and left distal PT exposure. Currently doing well on RNF. Plan: Continue ASA, plavix, low-dose heparin gtt Serial vascular exams PRN pain control Diet as tolerated IS, ICDs, OOBA as tolerated Possible intervention this coming week SIGNATURE: Ingris Mcpherson MD PATIENT NAME: Neil Mendenhall DATE: November 13, 2017 TIME: 7:40 AM PAGER/CONTACT #: Agree with above. Pt seen and examined. VSS. Pain improving, as is sensation and toe movement. Toes are pale pink-blue, but better by her report. Foot is warm. Doppler signals improving. Popliteal pulse is 2+. Wounds are clear. Plan- continue full anticoag; consider transition to eliquis once need for any further surgery is determined. Will check hypercoag panel, also. She understands and agrees.Herson Nam MD November 13, 2017 5:10 PM PROGRESS Observed: 11/13/2017 Status: COMPLETED Source: [place] 4:22 AM [facility] OTHER CAMPUS REPOSITORY HNO ID: [id number] Author: Downtime Note Service: (none) Author Type: (none) Type: Progress Notes Filed: 11/13/2017 4:31 AM Note Text: Epic Scheduled Downtime: 11/12/2017 11:34:32 PM to 11/13/2017 4:17:42 AM BASIC METABOLIC PANL Collected: 11/13/2017 Status: F Source: [place] 4:12 AM [facility] OTHER CAMPUS REPOSITORY TYPE CODE TESTS RESULT OUT OF REFERENCE UNITS RANGE LAB GLU 65-100 mg/dL Glucose High 120 LAB BUN 8-25 mg/dL BUN 9 LAB CRET 0.70-1.40 mg/dL Low Creatinine 0.69 LAB NA 132-148 mmol/L Sodium 139 LAB K 3.5-5.0 mmol/L Potassium 3.5 LAB CL 98-110 mmol/L Chloride 106 LAB CO2 23-32 mmol/L Low CO2 22 LAB AGAP 9-18 mmol/L Anion Gap 11 LAB CA 8.5-10.5 mg/dL Low Calcium, Total 8.2 LAB GFRAA >60 eGFR- >60 Amer. LAB GFRNAA >60 . eGFR-All Other Races >60 Performed By: #### KAITLYNN, CBC #### [facility] [address] [place] [address] CBC Collected: 11/13/2017 Status: F Source: [place] 4:12 AM [facility] OTHER CAMPUS REPOSITORY TYPE CODE TESTS RESULT OUT OF REFERENCE UNITS RANGE LAB WBC 3.70-11.00 k/uL WBC 8.81 LAB RBC 3.90-5.20 m/uL Low RBC 3.74 LAB HGB 11.5-15.5 g/dL Low Hemoglobin 10.2 LAB HCT 36.0-46.0 % Low Hematocrit 32.4 LAB MCV 80.0-100.0 fL MCV 86.6 LAB MCH 26.0-34.0 pG MCH 27.3 LAB MCHC 30.5-36.0 g/dL MCHC 31.5 LAB RDWCV 11.5-15.0 % RDW-CV 14.2 LAB PLTCT 150-400 k/uL Platelet High Count 416 LAB MPV 9.0-12.7 fL MPV 9.8 Performed By: #### KAITLYNN, CBC #### [facility] [address] [place] [address] APTT Collected: 11/13/2017 Status: F Source: [place] 2:39 AM CLINIC OTHER [place] REPOSITORY TYPE CODE TESTS RESULT OUT OF RANGE REFERENCE UNITS LAB APTT 23.0-32.4 sec High APTT 34.6 Result Comment: Unfractionated Heparin Therapeutic Ranges: Standard Heparin Nomogram: 53 to 78 seconds (anti-Xa level of 0.3 to 0.7 U/ml) Low Dose/ACS Nomogram: 49 to 67 seconds (anti-Xa level of 0.2 to 0.5 U/ml) Stroke Treatment Nomogram: 49 to 67 seconds (anti-Xa level of 0.2 to 0.5 U/ml) Note: The APTT therapeutic range has been determined for the current lot of laboratory APTT reagent in use throughout the [facility]. Performed By: #### PTT #### [place] [address] NURSING PROG Observed: 11/12/2017 Status: COMPLETED Source: [place] 10:08 PM [facility] REPOSITORY HNO ID: [id number] Author: Antonieta JeffriesRn) SARAH Torres Service: (none) Author Type: Registered Nurse Type: Nursing Progress Note Filed: 11/13/2017 4:37 AM Note Text: Nursing Progress Note Patient Name: Neil Mendenhall Patient Location: [place] [address] [address] Daily Note:11/12/17 2045 - Pt awake in bed. Bilateral lower extremity pulses dopplered; all present. Heparin, IV fluids, and STUDY ABROAD ADVISOR infusing per SEP. 2109 - Patient up to bathroom with one assist and walker, gait steady. 0125 - Lab called regarding APTT lab draw, which was incorrectly ordered yesterday, before downtime. Lab requisition faced to lab. 0230 - Lab in to draw blood. 0400 - Lab results back APTT 34.6. Heparin rate change to 1400 units/hr with a 2300 unit bolus given. This note was completed by: Antonieta Torres RN NURSING PROG Observed: 11/12/2017 Status: COMPLETED Source: [place] 7:51 PM [facility] REPOSITORY HNO ID: [id number] Author: Colten JeffriesRn) SARAH Paz Service: (none) Author Type: Registered Nurse Type: Nursing Progress Note Filed: 11/12/2017 7:56 PM Note Text: Nursing Progress Note Patient Name: Neil Mendenhall Patient Location: / 1930 aPTT = 30.2. 4,000 unit Heparin bolus administered and gtt increased from 900 to 1200units/hr (12ml/hr). Next aPTT in EPIC for 11/13 at 0100. LLE warm to touch although toes cool. Left popliteal, anterior/posterior tibial and dorsalis pedis pulses dopplered (dp marked). This note was completed by: Colten Paz RN NURSING PROG Observed: 11/12/2017 Status: COMPLETED Source: [place] 7:49 PM [facility] OTHER [place] REPOSITORY HNO ID: [id number] Author: Colten (Rn) SARAH Paz Service: (none) Author Type: Registered Nurse Type: Nursing Progress Note Filed: 11/12/2017 7:51 PM Note Text: Nursing Progress Note Patient Name: Neil Mendenhall Patient Location: / Late entry from 1830 - Ms. Mendenhall received as transfer from ICU via wheelchair into room PK328 in stable condition. Patient oriented to room and unit routines. Call light placed within reach and patient instructed on use. IVF and Heparin gtt infusing at ordered rates (aPTT pending). Will continue to monitor and adjust Heparin gtt per nomogram. This note was completed by: Colten Paz RN PTT,ANTICOAG THERAPY Collected: 11/12/2017 Status: F Source: [place] 4:51 PM [facility] OTHER [place] REPOSITORY TYPE CODE TESTS RESULT OUT OF RANGE REFERENCE UNITS LAB APTT 23.0-32.4 sec APTT 30.2 Result Comment: Unfractionated Heparin Therapeutic Ranges: Standard Heparin Nomogram: 53 to 78 seconds (anti-Xa level of 0.3 to 0.7 U/ml) Low Dose/ACS Nomogram: 49 to 67 seconds (anti-Xa level of 0.2 to 0.5 U/ml) Stroke Treatment Nomogram: 49 to 67 seconds (anti-Xa level of 0.2 to 0.5 U/ml) Note: The APTT therapeutic range has been determined for the current lot of laboratory APTT reagent in use throughout the [facility]. Performed By: #### PTTAC #### [address] [place] [id number] [place] [address] OPERATIVE NO Observed: 11/12/2017 Status: COMPLETED Source: [place] 2:01 PM [facility] OTHER CAMPUS REPOSITORY HNO ID: [id number] Author: Flo Aragon Service: Vascular Surgery Author Type: Physician Type: Operative Report Filed: 11/12/2017 2:09 PM Note Text: OPERATIVE/PROCEDURE REPORT LOG ID: [id number] Surgery/Procedure Date: 11/11/2017 Incision/Procedure Start Time: 202 Incision Close/Procedure End Time: 521 Surgeon(s)/Proceduralist(s) and Swimmer(s): Surgeon(s) and Role: * Flo Aragon - Primary * Ingris Mcpherson MD - Assisting Anesthesia: General Procedure(s): left common femoral to above knee popliteal bypass with 7mm ringed PTFE Left distal PT exposure by the medial malleolus Operative Indications: 52 year old female with 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 We discussed the risks/benefits/alternatives and the patient and her sister were agreeable to proceed. Procedure details: A huddle was performed with the surgery, anesthesia, and nursing teams to confirm patient name, MRN, and procedure. The patient was brought into the operating room and placed supine. The patient underwent induction of general anesthesia and endotracheal intubation. A humphries catheter was placed under sterile conditions. The patient was prepped and draped from the umbilicus down the entire left and the contralateral groin. A vertical incision was made in the left groin. The common femoral artery, profunda and sfa were mobilized and controlled with vessel loops. The dissection remained low on the common femoral artery and so the vein coursing over the femoral artery underneath the inguinal ligament was NOT identified or transected. A longitudinal incision was made proximal to the knee and overlying the sartorius muscle.The above-knee popliteal artery was circumferentially dissected and controlled with vessel loops. Heparin was given and ACT was checked every 30 minutes and heparin was then re-dosed accordingly. The 7mm ringed PTFE was spatulated and anastomosed end to side of the common femoral artery just opposite the profunda using running 6-0 Prolene sutures. Flow was reestablished in the usual fashion. A tunnel was made and the graft was passed to the distal arterial target. The above knee popliteal artery was clamped proximally and distally. The graft was sewn end to side of the artery with running 6-0 Prolene sutures. Then the PT artery was exposed and dissected just posterior to the medial malleolus. There was a monophasic signal within the vessel after the bypass. Circumferential control was obtained with vessel loops proximally and distally. A longitudinal arteriotomy was made and extended with madsen scissors for a length of 1 cm. There was nearly no discernible flow lumen with very little bleeding coming in antegrade and retrograde. This did not appear to be organized thrombus, but a profoundly hyperplastic artery with the hyperplasia nearly obliterating the lumen. A 2 ana cristina was attempted to be passed antegrade and retrograde but would not track. A riley was used to try and mobilize the hyperplastic tissue and see if this was a dissection flap and if any flow lumen could be discerned and this was not possible. The arteriotomy was closed with a running 6-0 prolene suture and this finding was discussed with the patient's sister that she may likely end up with a major amputation given the lack of outflow despite the patent bypass. There was a triphasic signal within the profunda and bypass at the end of the case. Hemostasis was achieved in the wounds. The wounds were irrigated with antibiotic solution. The deep layers were closed with 2-0 and 3-0 running Vicryl suture, and the skin was closed with running 4-0 Monocryl suture. The incision by the ankle was closed with interrupted nylon. The skin was dressed with Sureclose. The patient was taken to the ICU in stable condition. Pre-Op/Pre-Procedure Diagnosis: acute limb ischemia Post-Op/Post-Procedure Diagnosis: same Estimated Blood Loss: 50 mls Specimens: None Implantable Devices: 7mm ringed PTFE Drains: None Complications: None The primary surgeon/proceduralist performed the procedure with assistance. SIGNATURE: Flo Aragon MD PATIENT NAME: Neil Mendenhall DATE: 11/11/2017 TIME: 2:01 PM PAGER/CONTACT #: OPERATIVE NO Observed: 11/12/2017 Status: COMPLETED Source: [facility] 1:52 PM CLINIC OTHER CAMPUS REPOSITORY HNO ID: [id number] Author: Flo Aragon Service: Vascular Surgery Author Type: Physician Type: Operative Report Filed: 11/12/2017 2:00 PM Note Text: OPERATIVE/PROCEDURE REPORT LOG ID: [id number] Surgery/Procedure Date: 11/11/2017 Incision/Procedure Start Time: 1053 Incision Close/Procedure End Time: 1220 Surgeon(s)/Proceduralist(s) and Swimmer(s): Surgeon(s) and Role: * Flo Aragon - Primary * Cyndy Hays (Igor Espinosa MD - Assisting No Additional Staff PROCEDURE INDICATION: 52 year old female with left leg acute limb ischemia. She presented on 10/22 with left leg tejon sfa thrombosis and thrombosis of her distal PT by the ankle. She underwent lysis with angioplasty of her distal PT as well as a stent placed within her SFA. Shortly after discharge she experienced left leg rest pain and came in after 2 weeks due to motor deficits and weakness in her foot. A discussion of the risks/benefits/alternatives of recanalization of her SFA and distal PT were discussed and she agreed to proceed INTERVENTIONAL PROCEDURE: Ultrasound-guided right common femoral access Aorta and pelvic angiogram left lower extremity angiogram Anesthesia: Procedural Sedation PROCEDURAL DETAILS The patient was taken to the mill labor supervisor and laid supine on the table. After time-in and under continuous oxygen and monitoring, IV analgesia and sedation were given. Moderate sedation consisting of continuous ECG, pulse oxymetry, cardiopulmonary monitoring, IV analgesia and sedation was performed by the nurse, overseen by the performing physician(s). Bilateral groins were prepped and draped in the usual sterile fashion. Using local anesthesia, ultrasound guidance, and a micropuncture system, the right gas operation manager was accessed. A 6-[place] Islander sheath was exchanged into the INTERNET ASSESSOR using and a Contra catheter was advanced above the renal arteries. Angiography with runoff was performed with selected DSA runs done stepwise to the foot. This showed a patent aorta and iliacs as well as left common femoral and profunda. The SFA is occluded just distla to the origin to the above knee popliteal with three vessel origins patent, the peroneal and AT occlude in the proximal calf and the pt occludes in the distal third of the calf without any outflow. The catheter was exchanged for a quickcross catheter and using a floppy 035 glidewire, v18, spartacore, and sv5, I was unable to cross the PT lesion into any discernible outflow vessel. I also shot multiple angiograms with delayed imaging to identify if any outflow vessel could be identified and there was none. Therefore, I elected to terminate the procedure and take her to the OR. The wires and catheters were removed and a starclose deployed for hemostasis. Sterile dressings were applied. The patient tolerated the procedure well. Pre-Op/Pre-Procedure Diagnosis: acute limb ischemia Post-Op/Post-Procedure Diagnosis: same Estimated Blood Loss: 0 ml Specimens: None Implantable Devices: None Drains: None Complications: None The primary surgeon/proceduralist performed the procedure with assistance. SIGNATURE: Flo Aragon MD PATIENT NAME: Neil Mendenhall DATE: 11/11/2017 TIME: 1:52 PM PAGER/CONTACT #: FELIPA RICK INIT Observed: 11/12/2017 Status: COMPLETED Source: [facility] 12:13 PM CLINIC OTHER CAMPUS REPOSITORY HNO ID: [id number] Author: Colton (Rn) SARAH Bedolla Service: Care Management Author Type: Registered Nurse Type: Care Mgt Initial Assessment Filed: 11/12/2017 12:34 PM Note Text: CARE MANAGEMENT: ASSESSMENT AND DISCHARGE PLAN SERVICE DATE: 11/12/2017 SERVICE TIME: 12:15 PM PRIMARY CARE PHYSICIAN: Kathryn aGlvan MD ADMISSION STATUS: Inpatient Needs Prior to Discharge: Home Care Order;OT/PT Evaluation 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 Yes Is This a Planned Readmission? No: Recurrent symptoms of underlying disease Followed Up with Appointment Prior to Admission: Unknown, patient unable to answer Where Did the Patient Come From? Home Intervention Taken to Avoid Future Readmission? Home with home health care Advance Directive: Current Advance Directive: None Manager Strategic Assisted with AD Completion: Yes Action: Education Provided;Patient Unwilling Health Literacy: 1. How often do you need to have someone help you when you read instructions, pamphlets, or other written material from your doctor or pharmacy? Never - 1 2. How confident are you filling out medical forms by yourself? Quite a bit - 2 If Patient scores > 3 on either question, the following interventions were put into place: Patient did not score > 3 FUNCTIONAL AND COGNITIVE/BEHAVIORAL PRIOR TO ADMISSION: Baseline Mental Status: Alert AND Oriented, Person, Place , Time and Situation Functional Status: Independent Does Patient Currently Receive Any Community Services or Home Care? None Equipment Prior to Admission: None Has the Patient Been in a Group Home Facility in the Past 30 days? No SOCIAL: Living Arrangement: Home Lives With: Alone Financial Resources: Disabled Primary Contact: Extended Emergency Contact Information Primary Emergency Contact: Kathryn Santiago [place] Relation: Sibling Supportive: Yes Other Important Patient Contacts: None Caregiver Assessment: Caregiver is ready, willing and able to meet the patient's needs as recommended by the inter-professional team? TBD Patient's transition needs and plan for meeting these needs: Home with home healthcare Does the patient have an acute stroke diagnosis, or has the patient had a stroke during this admission? No Medication Adherence: I am convinced of the importance of my prescription medication: Agree completely - 0 I worry that my prescription medication will do more harm than good to me Disagree mostly - 0 I feel financially burdened by my [id number] expenses for my prescription medication: Disagree completely - 0 Patient is categorized as low risk < 2 Are you interested in bedside delivery of your medications? No Food Concerns: In the Last Month, Have You had Trouble Getting Food? No trouble getting food During the Last Month, Have You Worried Whether Your Food Would Run Out Before You Had Enough Money to Buy More? No Is the Patient Psychosocially Complex? No ASSESSMENT AND PLAN: Medical Needs: 2 or more chronic diseases and Wound Care - active or potential Psychosocial Needs: None FREEDOM OF CHOICE EXPLAINED: Yes patient Financial Disclosure Provided The patient and/or family has been given the Provider List: Yes Provider List: Home Care Preference: [facility], [facility] POTENTIAL TRANSITION PLANS Home Prison OT/PT TCC met with patient at bedside, explained role of case management. Neil lives alone, bedroom and bathroom upstairs. Prior to admit Neil independent in all ADLs. Given list of [facility] agencies, referrals sent, awaiting acceptance by agency. Vivian STANFORD entered F2F. Call placed to Dr Kathryn Galvan's office to confirm if PCP will follow for home health, spoke with Denise she sent message to office, waiting for return call. Friends will provide transport home. SIGNATURE: Colton Bedolla RN,BSN PATIENT NAME: Neil Mendenhall DATE: November 12, 2017 TIME: 12:14 PM PAGER/CONTACT #: [phone] THERAPY NT Observed: 11/12/2017 Status: COMPLETED Source: [facility] 11:49 AM CLINIC OTHER CAMPUS REPOSITORY HNO ID: [id number] Author: Latoya (Ot) Riky Service: Occupational Therapy Author Type: Occupational Therapist Type: Therapy (PT/OT/Speech/Resp) Filed: 11/12/2017 12:09 PM Note Text: Occupational Therapy Evaluation SERVICE DATE: 11/12/2017 SERVICE TIME: 1055 to 1125 ROOM: [place] [address] Recommended Discharge Disposition: Home OT Anticipated Discharge Needs: Physical Assist at Home Physical Assist at Home for: Cleaning;Laundry;Meals;Medication Management;Transportation;Shopping (A with LB ADLs prn) Recommended Discharge Equipment: To Be Determined OT Recommendations to Nursing: With assist of 1 person;To Bathroom for ADL?s /and or Toileting OT 6 Clicks Score: 19 Precautions/Activity Restrictions: Fall Risk Precaution/Activity Restriction Comments: heart healthy, mobilize pt ASSESSMENT: 52 yo patient admitted with L foot ischemic pain and is s/p L fem pop bypass 11/11/17. Pt?s pertinent PMH includes: PAD, HLD, bipolar, CAD. Patient's impairments as related to Occupational Therapy include decreased strength/endurance, impaired balance, functional mobility and self care performance. Patient may benefit from Home Occupational Therapy in order to continue to progress functional mobility and ADL skills. Patient has adequate support and social structure for reasonably safe discharge home at current level. Patient Disposition at Start of Session: Supine in Bed;Bed Alarm Patient Disposition at End of Session: OOB in Chair;Chair Alarm Tolerated Full Session Occupational Therapy Problem List: Safety Deficits;Impaired Self Care;Decreased Activity Tolerance;Functional Mobility Impairment;Sensory Deficit Patient /Caregiver Goals: Go Home Goals for Plan of Care: Grooming with: Supervision Upper Body Bathing with: Supervision Upper Body Dressing with: Supervision Lower Body Bathing with: Supervision Lower Body Dressing with: Supervision Toilet Hygiene with: Supervision Chair Transfer with: Supervision Toilet Transfer with: Supervision Tolerate (minutes of functional activity): 30 Functional Activity with: Supervision Increased Awareness of Cognitive Impairments as Related to ADL's/IADL's: Demonstrated Rehab Potential: Good PLAN: Treatment Frequency (times per week): 1 Current admission Treatment Interventions: Education;Self Care / Home Management;Cognitive Training;Functional Mobility Training Plan of Care developed with: Patient TREATMENT INTERVENTIONS: Therapy Diagnosis: Decreased activities of daily living (ADL);Reduced mobility-other;Signs and Symptoms Involving Cognitive Functions and Awareness Interventions Provided: Evaluation;Self Prison Management (57345) $ Evaluation-Low (26040) Billed Units: 1 unit Self Prison Management (31345) Treatment Minutes: 15 1 unit Skilled Intervention(s): Provided instruction, cuing and facilitation for lower body dressing . Pt edu on LB dressing technique threading surgical leg first for increased comfort and Ind with pt verbalizing understanding. Pt does not attempt to perform at this time due to c/o dizziness. RN notified. Pt reporting her family can assist with LB ADLs and all IADLs as needed post discharge. Education in functional transfer safety using ww. OT edu pt on sequencing using ww to adjust WBAT on surgical leg. Pt verbalizes understanding and performs return demo with min verbal cues. Pt positioned for comfort with chair alarm engaged and needs in reach. Vitals monitored and remaining stable throughout. Total Timed Code Treatment Minutes: 15 Total Treatment Time (minutes): 30 FUNCTIONAL G CODE: OT 6 Clicks Score: 19 (11/12/17 1055) Self Care Current Status (G8987): CK (11/12/17 1055) Self Care Goal Status (G8988): CJ (11/12/17 105) Based on clinical assessment and the score on the 6 Clicks Functional Assessment Tool, the G code and corresponding severity modifiers are documented above. SUBJECTIVE: Current Hospital Course: Chart reviewed; see above Reason for Occupational Therapy Consult: S/p left fem pop bypass with PTFE graft Relevant Past Medical History: PAD, HLD, bipolar, CAD Patient Report: I can stay at my moms house when I'm discharged. Everything is on the first floor. Pt reporting her mother is ill and her sisters are in town from out of state. Pt reporting her sisters can assist with IADLs and LB ADLs prn. Home Environment Patient Lives With: Self/Alone (pt reporting she can stay at her mothers house post d/c) Assistance Available: PRN (pt's sisters in from out of town and can assist) Entry To Home: Stairs Number Of Stairs Into Home: 2 Number Of Stairs To Bed/Bath: 13 steps to pt's duplex. Pt rpeortingshe can stay at her mothers house which is a first floor set up Stairs to Bed/Bath with: Unilateral Rail Tub/Shower Type: tub shower Laundry: basement laundry at pt's home; pt reporting her sisters can assist at her mothers house. Equipment Owned: Grab Bars-Shower;Shower Chair (pt's mother has cane and walker available she can use) Prior Functional Level: Within Functional Limits (Per pt, Ind ADLs, IADLs, drives, amb Ind. Unemployed) OBJECTIVE: Responsiveness: Alert Follows Commands: 3-step Commands Mini Cog Score: 3 (11/12/17 1055) Vision Deficits: Wears glasses CURRENT FUNCTIONAL STATUS: Current Activities of Daily Living Assist Level Feeding Modified Independent Grooming Stand By Assistance Bathing Upper Body Stand By Assistance Bathing Lower Body Moderate Assistance Dressing Upper Body Stand By Assistance Dressing Lower Body Maximal Assistance Toileting Contact Guard Assistance Instrumental Activities of Daily Living Assist Level Meal/Beverage Prep Light Cleaning Laundry Medication Management with Strategies Functional Mobility Assist Level Rolling Supine to Sit Stand By Assistance Sit to Supine Scooting Stand By Assistance Sit to Stand Contact Guard Assistance Stand to Sit Contact Guard Assistance Bed to Chair Contact Guard Assistance Wheeled Walker Toilet/Commode Functional Mobility Contact Guard Assistance Wheeled Walker Please see discipline specific clinical documentation flowsheet for complete details for this therapy evaluation/treatment. SIGNATURE: Latoya Lan OTR/L PATIENT NAME: Neil Mendenhall DATE: November 12, 2017 TIME: 11:49 AM PAGER: [phone] PTT,ANTICOAG THERAPY Collected: 11/12/2017 Status: F Source: [facility] 10:55 AM [facility] REPOSITORY TYPE CODE TESTS RESULT OUT OF RANGE REFERENCE UNITS LAB APTT 23.0-32.4 sec APTT 26.5 Result Comment: Unfractionated Heparin Therapeutic Ranges: Standard Heparin Nomogram: 53 to 78 seconds (anti-Xa level of 0.3 to 0.7 U/ml) Low Dose/ACS Nomogram: 49 to 67 seconds (anti-Xa level of 0.2 to 0.5 U/ml) Stroke Treatment Nomogram: 49 to 67 seconds (anti-Xa level of 0.2 to 0.5 U/ml) Note: The APTT therapeutic range has been determined for the current lot of laboratory APTT reagent in use throughout the [facility]. Performed By: #### PTT[facility] #### [place] [address] PROGRESS Observed: 11/12/2017 Status: COMPLETED Source: [facility] 10:04 AM [facility] OTHER [place] REPOSITORY HNO ID: [id number] Author: Cyndy Hays (Res) MD Jesús Service: Vascular Surgery Author Type: Resident Type: Progress Notes Filed: 11/12/2017 10:09 AM Note Text: [facility]ULAR [facility] POSTOP PROGRESS NOTE Service Date: 11/12/2017Admit Date: 11/11/2017Service Time: 10:05 AM LOS: 1 day(s) Primary Service: Vascular Surgery Vascular Physician: Angel Baig MD Interval Events/Issues: No acute issues overnight. S/p left fem pop bypass with PTFE graft. No sensation over toes, motor intact. Left AT biphasic signal, bypass distal anastomosis site with biphasic signal. H/H stable, on RA, stable to be transferred to floor. Subjective Current hospital medications: HYDROmorphone 0.5 mg injection (DILAUDID) 0.5 mg INTRAVENOUS q 2 H PRN hydrALAZINE 10 mg injection (APRESOLINE) 10 mg INTRAVENOUS q 2 H PRN NaCl 0.9% iv infusion 75 mL/hr INTRAVENOUS CONTINUOUS docusate sodium 100 mg cap(s) (COLACE) 100 mg ORAL BID ondansetron 4 mg tab(s) (ZOFRAN) 4 mg ORAL q 6 H PRN ondansetron (PF) 4 mg injection (ZOFRAN) 4 mg INTRAVENOUS q 6 H PRN heparin iv infusion 25,000 units in 0.45% NaCl 250 mL PREMIX 500 Units/hr INTRAVENOUS CONTINUOUS HYDROmorphone STUDY ABROAD ADVISOR 0.5 mg/mL in NaCl 0.9% 100 mL INTRAVENOUS CONTINUOUS HYDROmorphone 0.5 mg/mL STUDY ABROAD ADVISOR CLINICIAN DOSE 0.2 mg 0.2 mg INTRAVENOUS q 6 H PRN oxyCODONE IR 5-10 mg tab(s) (ROXICODONE) 5-10 mg ORAL q 4 H PRN acetaminophen 650 mg tab(s) (TYLENOL) 650 mg ORAL q 6 H lidocaine 5 % 1 Patch (LIDODERM) 1 Patch TRANSDERMAL DAILY lidocaine patch - REMOVE OTHER DAILY lidocaine - VERIFY PATCH OTHER q 8 H diphenhydrAMINE 12.5 mg injection (BENADRYL) 12.5 mg INTRAVENOUS q 6 H PRN labetalol 5 mg injection (NORMODYNE) 5 mg INTRAVENOUS q 2 H PRN ARIPiprazole 20 mg tab(s) (ABILIFY) 20 mg ORAL DAILY lamoTRIgine 200 mg tab(s) (LaMICtal) 200 mg ORAL DAILY simvastatin 10 mg tab(s) (ZOCOR) 10 mg ORAL DAILY aspirin 81 mg chewable tab(s) 81 mg ORAL DAILY cholecalciferol 5,000 Units tab(s) (VITAMIN D3) 5,000 Units ORAL DAILY NIFEdipine XL 30 mg tab(s) (ADALAT CC) 30 mg ORAL DAILY clopidogrel 75 mg tab(s) (PLAVIX) 75 mg ORAL DAILY ALLERGIES Allergen Reactions - Horizant [Gabapenti* Mental Status Change - Wellbutrin [Bupropi* Other: See Comments Took med on Wednesday Woke up 3 days later in hospital Objective PHYSICAL EXAM: Patient Vitals for the past 24 hrs: BP Temp Temp src Pulse Resp SpO2 Weight 11/12/17 0900 115/63 - - 102 18 89 % - 11/12/17 0848 - 37.4 ?C (99.3 ?F) Oral 99 14 92 % - 11/12/17 0800 118/75 - - 93 14 94 % - 11/12/17 0719 - - - 91 11 92 % - 11/12/17 0715 - - - 83 14 92 % - 11/12/17 0706 104/55 - - 94 9 93 % - 11/12/17 0700 - - - 97 14 92 % - 11/12/17 0645 - - - 103 15 92 % - 11/12/17 0630 - - - 92 12 91 % - 11/12/17 0615 - - - 95 12 91 % - 11/12/17 0600 130/78 - - 93 13 93 % - 11/12/17 0500 118/73 - - 92 14 94 % 77.1 kg (169 lb 15.6 oz) 11/12/17 0410 - - - - 12 - - 11/12/17 0404 - 37.2 ?C (98.9 ?F) Oral - - - - 11/12/17 0400 96/52 - - 93 18 94 % - 11/12/17 0330 - - - 105 13 92 % - 11/12/17 0315 - - - 108 13 91 % - 11/12/17 0300 105/60 - - 104 12 93 % - 11/12/17 0245 - - - 119 29 91 % - 11/12/17 0230 - - - 117 24 94 % - 11/12/17 0215 - - - 118 17 93 % - 11/12/17 0200 129/68 - - 110 15 93 % - 11/12/17 0100 123/68 - - 116 23 93 % - 11/12/17 0001 - 37.4 ?C (99.3 ?F) Oral - - - - 11/12/17 0000 120/70 - - 113 24 94 % - 11/11/17 2300 104/67 - - 108 15 94 % - 11/11/17 2200 124/78 - - 105 13 93 % - 11/11/17 2100 141/79 - - 109 13 97 % - 11/11/17 2000 110/71 - - 105 15 95 % - 11/11/17 1950 - 36.9 ?C (98.5 ?F) Oral - - - - 11/11/17 1930 118/70 - - 112 20 98 % - 11/11/17 1915 - - - 115 25 98 % - 11/11/17 1900 115/66 - - 118 23 99 % - 11/11/17 1845 124/72 - - 112 18 98 % - 11/11/17 1830 123/74 - - 107 13 99 % - 11/11/17 1822 - - - 104 17 99 % - 11/11/17 1815 141/78 - - 96 12 99 % - 11/11/17 1800 161/86 37 ?C (98.6 ?F) Oral 78 14 100 % - 11/11/17 1745 144/78 - - 66 14 100 % - Intake/Output Summary (Last 24 hours) at 11/12/17 1005 Last data filed at 11/12/17 0900 Gross per 24 hour Intake 1721.3 ml Output 1947 ml Net -225.7 ml CONSTITUTIONAL: No acute distress NEUROLOGIC/PSYCHIATRIC: Oriented to time, place AND person And alert HEENT: Fair dentition LUNGS: Respiratory effort: normal reathing on RA HEART: Regular rate AND rhythm ABDOMEN: Soft and Non-tender INTEGUMENTARY: Wound - No SURGICAL SITES: Lower extremity - LLE; Clean, dry and intact MUSCULOSKELETAL: No deformities Pulses/Signals: Left AT and bypass distal anastomosis site biphasic signal DATA: Laboratory: Recent Labs 11/12/17 0210 11/11/17 04211/10/17 1515 WBC 9.66 7.55 8.82 HB 11.8 12.4 13.0 HCT 37.0 39.3 40.1 PLT 446* 561* 579* Recent Labs 11/12/17 0210 11/11/17 0429 11/10/17 1515 NA 136 139 140 K 4.1 3.9 4.1 BUN 11 15 15 CREAT 0.72 0.76 0.73 GLUC 130* 101* 102* MG 2.1 2.3 -- Recent Labs 11/12/17 0210 11/11/17 0429 11/10/17 2120 11/10/17 1515 APTT 25.9 36.2* 27.9 24.9 INR 1.0 -- -- 0.9 Assessment/Plan Impression: This is a 52 year old female who is POD# 1 LLE fem-AK pop bypass with PTFE graft Plan: - Continue diet - DC humphries catheter - Start heparin low dose nomogram - Resume home meds - Continue vascular checks - Continue STUDY ABROAD ADVISOR for pain control - PRN BP control - OOB, ambulate - Transfer to [facility] - Plans discussed with attending No problems updated. SIGNATURE: Cyndy Espinosa MD PATIENT NAME: Neil Mendenhall DATE: November 12, 2017 TIME: 10:05 AM PAGER/CONTACT #: [phone] NURSING PROG Observed: 11/12/2017 Status: COMPLETED Source: [facility] 9:34 AM CLINIC OTHER CAMPUS REPOSITORY HNO ID: [id number] Author: Dee Dee (Rn) SARAH Duque Service: Critical Care Author Type: Registered Nurse Type: Nursing Progress Note Filed: 11/12/2017 6:04 PM Note Text: Nursing Progress Note Patient Name: Neil Mendenhall Patient [facility] [place] [address] Note:: Report received from previous RN's lauri Kraus and colton Wise, assessed pulses with these RN's and all lines checked. [id number]: Assessments completed Pt is axox3, maex4 and FC w/o difficulty slightly drowsy but easily arousable and appropriate, please see FS for any additional assessments. Pt c/o pain 9/10 at this time, state farm agent use encouraged. Dr. Field at bedside rounding on pt and new order received for Oxycotin see Emar and pain doc for administration given. Call light in hand and STUDY ABROAD ADVISOR button, Pt sitting up eating breakfast, emotional support and education given stallion keeper before you fall. 1045; Humphries removed as ordered. [id number]: PT/OT at [facility] evaluating pt OOB to chair one person assist. 1058/ 1059: Initial PTT drawn and sent and initial dosage for heparin changed from straight rate 500 to the nomogram initial dosage 900 units per hour and verified with Caitie Schmidt RN. [phone]: Dr. Aragon at bedside discussing procedure with the pt risk and benefits and education and emotional support given, all questions answered and laney sister was also at bedside when education was given. [id number]: Reassessments completed Please see FS for all assessments. Call light is in hand, chair alarm on and functioning. STUDY ABROAD ADVISOR use encouraged for pain see Emar and pain doc. [phone]; Pt back to bed one person assist with a walker, [place] removed as ordered. Call light in reach, bed alarm on and functioning. [phone]: Reassessments completed please see Fs for all assessments. 1651; PTT drawn by lab awaiting results. [id number]; report called to [id number] RN. and transport placed hand off given to Devi easley. This note was completed by: Dee Dee Duque RN PROGRESS Observed: 11/12/2017 Status: COMPLETED Source: [place] 7:45 AM [facility] OTHER [facility] REPOSITORY O ID: [id number] Author: Troy Upton) Nazia Service: Critical Care Author Type: Resident Type: Progress Notes Filed: 11/12/2017 7:48 AM Note Text: Critical Care Progress Note Service Date: November 12, 2017 Assessment and Plan: Neil Mendenhall is a 52 year old female , chronic smoker with history of PVD s/p multiple interventions to LLE including baloon angioplasties of the left SFA x 3 and lysis in 2013 for ALI. RSFA angioplasty x 1 (2011) and Aortobifem angiogram, Right Fem access to Left PT, Lysis on 11/21/17 ?who was admitted on 11/10/2017 with L toe pain and discoloration while on dual anti-platelet therapy. Arterial US showed Occluded left proimal to distal SFA, left SFA stent and left MANISHA distal at ankle today. Now s/p POD#1 Left femoral-above popliteal bypass with graft, attempted left posterior tibial endarterectomy ? Indication for ICU admission: close HD monitoring and vascular checks in setting of procedure above. ? Neuro: - Analgesia: Tylenol, Marzena, dilaudid STUDY ABROAD ADVISOR with extra clinical doses - Anxiety/Sedation/Itching: Benadryl PRN ? ?? Cardiovascular: - HTN: hydralazine and labetalol PRN - CAD: Statin, ASA 81, plavix - ICU monitoring - IV Access: pIV ?? Respiratory: - Incentive spirometry ?? GI: - Nutrition/Diet: HH diet ?? Renal: (Baseline sCr: 0.74) - Urine output ok. ?sCr 0.74. Humphries indicated. - IVF NS?at 100 - Electrolytes replete Ca, K >4, Phos >3, Mag >2. ?? Heme/ID: - Hemoglobin ok. No evidence of bleeding. Transfuse for hgb < 7 or if symptomatic - WBC trend - Abx: none - DVT Prophylaxis: Plavix and heparin infusion at midnight ?? Endo: - Glucose WNL. ?? Wound Care: RLE imobile. - catheter/wire dressing in place ?? MSK - Activity Level: Bedrest ?? Dispo: SICU? ? Plan to be discussed with Dr. Field. Troy Mandujano MD Date: 11/12/2017 Time: 7:45 AM Subjective: Interval Events: Main issue was left LE pain, Dilaudid STUDY ABROAD ADVISOR (w 0.3) was ordered and extra clinican doses were given. Still c/o pain. Left PT/DP on and off doppler able overnight. Physical Exam: BP 104/55 Pulse 83 Temp 37.2 ?C (98.9 ?F) (Oral) Resp 14 Ht 167.6 cm (5' 6) Wt 77.1 kg (169 lb 15.6 oz) SpO2 92% BMI 27.43 kg/m2 General appearance: uncomfortable?appearing, alert, in no mild?distress, well-hydrated, well nourished Neuro: Awake, alert, Sensation grossly intact. Skin: skin color, texture, turgor normal, no suspicious rashes or lesions HEENT: Normocephalic, EOMI, mucosa moist Lungs: clear to auscultation, no wheezing or rhonchi Heart: RRR without murmur, gallop, or rubs. Abdomen: Abdomen soft, non-tender, non-distended. Left LE: Left groin, thigh and leg incision C/D/I Labs: CBC, BMP, MG, PHOS Recent Labs 11/12/17 0210 11/11/17 0429 11/10/17 1515 10/24/17 0433 10/23/17 0324 04/21/14 1220 04/21/14 0400 WBC 9.66 7.55 8.82 7.90 < > -- < > 10.13 7.92 HB 11.8 12.4 13.0 11.6 < > -- < > 10.9* 10.9* HCT 37.0 39.3 40.1 34.5* < > -- < > 33.3* 33.4* PLT 446* 561* 579* 284 < > -- < > 292 313 NA 136 139 140 142 -- 139 < > 137 140 K 4.1 3.9 4.1 3.7 -- 3.7 < > 4.1 3.8 CHLOR 101 105 103 103 -- 103 < > 105 107 CO2 22* 20* 22* 23 -- 21* < > 23 23 BUN 11 15 15 8 -- 6* < > 7* 7* CREAT 0.72 0.76 0.73 0.72 -- 0.66* < > 0.81 0.87 GLUC 130* 101* 102* 97 -- 87 < > 97 146* CA 8.3* 8.9 9.6 8.3* -- 8.3* < > 8.3* 8.4* MG 2.1 2.3 -- -- -- 2.1 -- 2.1 2.2 P 3.8 -- -- -- -- 3.1 -- 3.1 3.5 < > = values in this interval not displayed. Liver Function, Amylase, AND Lipase Recent Labs 11/11/17 1407 11/10/17 1515 04/20/14 2040 01/15/11 1712 TPROT -- 8.3 7.0 7.6 ALB -- 4.4 3.6 4.48 ALT -- 21 26 -- AST -- 11 16 -- ALKPHOS -- 70 77 -- TBILI -- 0.2 0.3 -- LACT 0.32* -- -- -- Coags Recent Labs 11/12/17 0210 11/11/17 0429 11/10/17 2120 11/10/17 1515 10/23/17 0551 10/22/17 2229 APTT 25.9 36.2* 27.9 24.9 < > 36.2* 39.9* INR 1.0 -- -- 0.9 -- 1.3 1.2 < > = values in this interval not displayed. Intake and Output: Date 11/11/17 07 - 11/12/17 0659 11/12/17 07 - 11/13/17 0659 Shift 0137-2297 4073-0425 2669-4498 24 Hour Total 3899-9210 3145-5661 1682-3326 24 Hour Total I N T A K E PO 240 360 600 PO 240 360 600 IV 311 570.3 881.3 NS 0.9% 311 541 852 Heparin IV 29.3 29.3 Shift Total 551 930.3 1481.3 O U T P U T Urine 0118 156 1973 50 50 Tube Output ( Indwelling Urinary Catheter 11/11/17 1341 Humphries 16 Fr) 9921 089 0917 50 50 # of BMs Number of BMs 0 x 0 x 0 x Shift Total 1989 517 5770 50 50 Weight (kg) 75.6 75.6 77.1 77.1 77.1 77.1 77.1 77.1 Current Medications: Current hospital medications: HYDROmorphone 0.5 mg injection (DILAUDID) 0.5 mg INTRAVENOUS q 2 H PRN oxyCODONE ER 20 mg tab(s) (OxyCONTIN) 20 mg ORAL ONCE hydrALAZINE 10 mg injection (APRESOLINE) 10 mg INTRAVENOUS q 2 H PRN NaCl 0.9% iv infusion 75 mL/hr INTRAVENOUS CONTINUOUS docusate sodium 100 mg cap(s) (COLACE) 100 mg ORAL BID ondansetron 4 mg tab(s) (ZOFRAN) 4 mg ORAL q 6 H PRN ondansetron (PF) 4 mg injection (ZOFRAN) 4 mg INTRAVENOUS q 6 H PRN heparin iv infusion 25,000 units in 0.45% NaCl 250 mL PREMIX 500 Units/hr INTRAVENOUS CONTINUOUS HYDROmorphone STUDY ABROAD ADVISOR 0.5 mg/mL in NaCl 0.9% 100 mL INTRAVENOUS CONTINUOUS HYDROmorphone 0.5 mg/mL STUDY ABROAD ADVISOR CLINICIAN DOSE 0.2 mg 0.2 mg INTRAVENOUS q 6 H PRN oxyCODONE IR 5-10 mg tab(s) (ROXICODONE) 5-10 mg ORAL q 4 H PRN acetaminophen 650 mg tab(s) (TYLENOL) 650 mg ORAL q 6 H lidocaine 5 % 1 Patch (LIDODERM) 1 Patch TRANSDERMAL DAILY lidocaine patch - REMOVE OTHER DAILY lidocaine - VERIFY PATCH OTHER q 8 H diphenhydrAMINE 12.5 mg injection (BENADRYL) 12.5 mg INTRAVENOUS q 6 H PRN labetalol 5 mg injection (NORMODYNE) 5 mg INTRAVENOUS q 2 H PRN ARIPiprazole 20 mg tab(s) (ABILIFY) 20 mg ORAL DAILY lamoTRIgine 200 mg tab(s) (LaMICtal) 200 mg ORAL DAILY simvastatin 10 mg tab(s) (ZOCOR) 10 mg ORAL DAILY aspirin 81 mg chewable tab(s) 81 mg ORAL DAILY cholecalciferol 5,000 Units tab(s) (VITAMIN D3) 5,000 Units ORAL DAILY NIFEdipine XL 30 mg tab(s) (ADALAT CC) 30 mg ORAL DAILY clopidogrel 75 mg tab(s) (PLAVIX) 75 mg ORAL DAILY Prior to Admission Medications: clopidogrel (PLAVIX) 75 mg tablet Take 1 tablet by mouth once daily. oxyCODONE-acetaminophen (PERCOCET) 5-325 mg tablet Take 1- 2 tablets by mouth every 4 hours as needed for Pain. nitroglycerin (NITRO-BID) 2 % ointment Apply 0.5 g as directed twice daily. Apply in the morning and remove at night NIFEdipine ER (PROCARDIA XL) 30 mg 24 hr tablet Take 1 tablet by mouth once daily. Cholecalciferol, Vitamin D3, 5,000 unit cap Take 5,000 Units by mouth once daily. pregabalin (LYRICA) 225 mg capsule Take 225 mg by mouth twice daily. aspirin 81 mg chewable tablet Take 1 tablet by mouth once daily. pravastatin (PRAVACHOL) 20 mg tablet Take 20 mg by mouth once daily. lamoTRIgine (LAMICTAL) 200 mg tablet Take 200 mg by mouth once daily. aripiprazole(ABILIFY 20 MG TAB) Take one(1) tablet daily. ANES POST Observed: 11/12/2017 Status: COMPLETED Source: [place] 7:30 AM [facility] REPOSITORY O ID: [id number] Author: Cheryl Fox Service: Anesthesiology Author Type: Anesthesiologist Type: Anesthesia PostOp Filed: 11/12/2017 7:31 AM Note Text: POST ANESTHESIA EVALUATION NOTE SERVICE DATE: 11/12/2017 SERVICE TIME: : 1965 Vitals: 11/11/17 1800 11/11/17 1950 11/12/17 0001 11/12/17 0404 Temp: 37 ?C (98.6 ?F) 36.9 ?C (98.5 ?F) 37.4 ?C (99.3 ?F) 37.2 ?C (98.9 ?F) 11/12/17 0630 11/12/17 0645 11/12/17 0706 11/12/17 0715 Arterial BP 1: 124/56 109/55 111/54 100/47 BP: 104/55 11/12/17 0630 11/12/17 0645 11/12/17 0706 11/12/17 0715 Pulse: 92 103 94 83 11/12/17 0630 11/12/17 0645 11/12/17 0706 11/12/17 0715 Resp: 12 15 9 14 11/12/17 0630 11/12/17 0645 11/12/17 0706 11/12/17 0715 SpO2: 91% 92% 93% 92% Validated Vital Signs: Yes POST ANES STATUS: No apparent anesthetic complications. The patient is appropriately hydrated with stable respiratory and cardiovascular status. Patient has safe and adequate airway control. The patient has appropriate pain relief and no significant post operative nausea or vomiting. The patient has achieved baseline mental status. Further assessment by Anesthesia Service: None Other Remarks: SIGNATURE: Cheryl Fox MD PATIENT NAME: Neil Mendenhall DATE: November 12, 2017 TIME: 7:30 AM PAGER/CONTACT #: NURSING PROG Observed: 11/12/2017 Status: COMPLETED Source: [place] 3:24 AM [facility] REPOSITORY [facility] ID: [id number] Author: Kaitlynn Roth (Rn) SARAH Michaels Service: Nursing Author Type: Registered Nurse Type: Nursing Progress Note Filed: 11/12/2017 6:00 AM Note Text: Nursing Progress Note Patient Name: Neil Mendenhall Patient Location: -[id number] Daily Note: 1899: Bedside report received from SARAH Funez. Pulse assessment completed together. 1914: Dr. Mandujano made aware of the patient's pain. Dilaudid STUDY ABROAD ADVISOR ordered. 1954: Dr. Gisel Mcpherson at bedside assessing the patient's left foot and pulses. She updated Dr. Aragon via phone. 1999: Full assessment completed; see documentation. ST/RA. 2016: Dr. Mandujano at bedside. Aware of continued pain. 2114: Dr. Mandujano paged regarding patient's pain (left ankle/toes) rating 10/10. PRN Tylenol, PRN oxycodone, and one time dose 0.5 mg Dilaudid ordered. 2199: The left popliteal signal is the only signal that can be doppled at this time. The patient's toes are changing color from pale white to dark purple. The second toe is the most purple. The patient's toes have very little sensation. 2244: HS rounds completed with Dr. Mandujano. PRN Benadryl (for itching ordered) along with lidocaine patch. Made aware that we can only dopple the left popliteal signal. 0030: Patient asked for her lidocaine patch to be removed. 0307: Dr. Gisel Mcpherson paged regarding the patient's vascular assessment and continued pain. 0400: Reassessment completed; see documentation. 0500: We are able to dopple the left AT pulse. 0530: Chlorhexidine bath completed; the patient's gown and linens were changed. Preventative allevyn was applied to the coccyx. Hair was washed; patient rinsed mouth with mouthwash. 0700: Bedside report has been given to the day shift RN. This note was completed by: Kaitlynn Michaels RN CBC Collected: 11/12/2017 Status: F Source: [place] 2:10 AM CLINIC OTHER CAMPUS REPOSITORY TYPE CODE TESTS RESULT OUT OF REFERENCE UNITS RANGE LAB WBC 3.70-11.00 k/uL WBC 9.66 LAB RBC 3.90-5.20 m/uL RBC 4.26 LAB HGB 11.5-15.5 g/dL Hemoglobin 11.8 LAB HCT 36.0-46.0 % Hematocrit 37.0 LAB MCV 80.0-100.0 fL MCV 86.9 LAB MCH 26.0-34.0 pG MCH 27.7 LAB MCHC 30.5-36.0 g/dL MCHC 31.9 LAB RDWCV 11.5-15.0 % RDW-CV 14.4 LAB PLTCT 150-400 k/uL Platelet High Count 446 LAB MPV 9.0-12.7 fL MPV 9.5 Performed By: #### CBC, BMP, MG1, PHOS, PT, PTT #### [place] [address] BASIC METABOLIC PANL Collected: 11/12/2017 Status: F Source: [place] 2:10 AM [facility] OTHER CAMPUS REPOSITORY TYPE CODE TESTS RESULT OUT OF REFERENCE UNITS RANGE LAB GLU 65-100 mg/dL Glucose High 130 LAB BUN 8-25 mg/dL BUN 11 LAB CRET 0.70-1.40 mg/dL Creatinine 0.72 LAB NA 132-148 mmol/L Sodium 136 LAB K 3.5-5.0 mmol/L Potassium 4.1 LAB CL 98-110 mmol/L Chloride 101 LAB CO2 23-32 mmol/L Low CO2 22 LAB AGAP 9-18 mmol/L Anion Gap 13 LAB CA 8.5-10.5 mg/dL Low Calcium, Total 8.3 LAB GFRAA >60 eGFR- >60 Amer. LAB GFRNAA >60 . eGFR-All Other Races >60 Performed By: #### CBC, BMP, MG1, PHOS, PT, PTT #### [place] [address] MAGNESIUM Collected: 11/12/2017 Status: F Source: [place] 2:10 AM [facility] REPOSITORY TYPE CODE TESTS RESULT OUT OF REFERENCE UNITS RANGE LAB MG 1.7-2.6 mg/dL Magnesium 2.1 Performed By: #### CBC, BMP, MG1, PHOS, PT, PTT #### [place] [address] PHOSPHORUS Collected: 11/12/2017 Status: F Source: [place] 2:10 AM CLINIC OTHER [place] REPOSITORY TYPE CODE TESTS RESULT OUT OF REFERENCE UNITS RANGE LAB PHOS 2.5-4.5 mg/dL Phosphorus 3.8 Performed By: #### CBC, BMP, MG1, PHOS, PT, PTT #### [place] [address] PROTIME Collected: 11/12/2017 Status: F Source: [place] 2:10 AM [facility] OTHER [facility]AMP[facility] REPOSITORY TYPE CODE TESTS RESULT OUT OF RANGE REFERENCE UNITS LAB PSEC 9.7-13.0 sec PT Sec 10.3 LAB INR 0.9-1.3 PT INR 1.0 Result Comment: Vitamin K Antagonist (VKA) Therapeutic Range: INR 2 to 3 (Target INR of 2.5) Note: For patients treated with VKA drugs, such as warfarin, the [employer] 2012 Guideline recommends a therapeutic INR range of 2 to 3 (target INR of 2.5). This recommendation includes high-risk patients with antiphospholipid syndrome with previous arterial or venous thromboembolism, current-generation mechanical or bioprosthetic aortic heart valve replacement. Note: Patients with mechanical aortic valve replacement and additional risk factors for thromboembolic events (atrial fibrillation, previous thromboembolism, LV dysfunction, hypercoagulable conditions) or an older generation mechanical AVR (i.e., ball in-Cage) or any mechanical MVR should have a INR therapeutic range of 2.5 to 3.5 (target INR of 3). Nimesh GH, et al. Chest 2012, 141:7S-47S Dereck RA et al. [facility] 2017, 70: 252-289 Performed By: #### CBC, BMP, MG1, PHOS, PT, PTT #### [id number] [place] [address] APTT Collected: 11/12/2017 Status: F Source: [place] 2:10 AM [facility] REPOSITORY TYPE CODE TESTS RESULT OUT OF RANGE REFERENCE UNITS LAB APTT 23.0-32.4 sec APTT 25.9 Result Comment: Unfractionated Heparin Therapeutic Ranges: Standard Heparin Nomogram: 53 to 78 seconds (anti-Xa level of 0.3 to 0.7 U/ml) Low Dose/ACS Nomogram: 49 to 67 seconds (anti-Xa level of 0.2 to 0.5 U/ml) Stroke Treatment Nomogram: 49 to 67 seconds (anti-Xa level of 0.2 to 0.5 U/ml) Note: The APTT therapeutic range has been determined for the current lot of laboratory APTT reagent in use throughout the [facility]. Performed By: #### CBC, BMP, MG1, PHOS, PT, PTT #### [facility] [address] [place] [address] NURSING PROG Observed: 11/11/2017 Status: COMPLETED Source: [place] 7:41 PM [facility] OTHER CAMPUS REPOSITORY HNO ID: [id number] Author: Dee Dee (Rn) SARAH Duque Service: Critical Care Author Type: Registered Nurse Type: Nursing Progress Note Filed: 11/11/2017 7:47 PM Note Text: Nursing Progress Note Patient Name: Neil Mendenhall Patient Location: [place] [address] [address] Daily Note:1715; Report received from Bi SMITH in the OR. 1742; Pt arrived from the OR instable condition bedside SBAR hand off received, Pt connected to SICU monitors. 1800: assessments completed Pt is axox3, maex4 and FC with severe pain in the LLE, education given and communicated to SROC Dr. Mandujano, will follow up, call ight is bedside. B/P elevated spoke with Dr. field at bedside give hydralzine. 180; 10mg IVP hydralazine given see Emar and VS 181; Sister Laney to bedside for emotional support. Pt still expresses in severe pain spoke with SROC Dr. Mandujano order received for one time fent IVP 183; awaiting pharmacy had to call as I was locked out of Emar to administer the medication. 184; 50mcg of fent goiven IVP. [id number]; report given to oncoming RN Colton Wise and Lauri Kraus. This note was completed by: Dee Dee Duque RN BRIEF OP NOT Observed: 11/11/2017 Status: COMPLETED Source: [place] 6:04 PM [facility] OTHER [place] REPOSITORY HNO ID: [id number] Author: Ingris Mcpherson MD Service: Vascular Surgery Author Type: Resident Type: Brief Op Note Filed: 11/11/2017 6:21 PM Note Text: BRIEF OP NOTE LOG ID: [id number] Surgery/Procedure Date: 11/11/2017 Incision/Procedure Start Time: 2:02 PM Incision Close/Procedure End Time: 5:21 PM Surgeon(s)/Proceduralist(s) and Swimmer(s): Surgeon(s) and Role: * Flo Aragon - Primary * Ingris Mcpherson MD - Resident Procedure(s): Left femoral-above popliteal bypass with graft, attempted left posterior tibial endarterectomy Anesthesia: General Findings: Left SFA occlusion, left PT intimal hyperplasia -- unable to pass ana cristina balloon Estimated Blood Loss: 50 mls Specimens: None Complications: None Pre-Op/Pre-Procedure Diagnosis: critical limb ischemia left leg Post-Op/Post-Procedure Diagnosis: Critical limb ischemia left leg SIGNATURE: Ingris Mcpherson MD PATIENT NAME: Neil Mendenhall DATE: November 11, 2017 TIME: 6:04 PM PAGER/CONTACT #: [phone] CONFIRM BLOOD TYPE Collected: 11/11/2017 Status: F Source: [place] 2:00 PM [facility] OTHER [place] REPOSITORY TYPE CODE TESTS RESULT OUT OF REFERENCE UNITS RANGE LAB %ABR A ABO/RH(D) NEGATIVE Performed By: #### CONABO #### [place] [address] ANES PREOP Observed: 11/11/2017 Status: COMPLETED Source: [place] 12:50 PM [facility] REPOSITORY HNO ID: [id number] Author: Tyrell Valencia I Service: Anesthesiology Author Type: Anesthesiologist Type: Anesthesia PreOp Filed: 11/11/2017 2:47 PM Note Text: REGIONAL ANESTHESIOLOGY DAY OF SURGERY NOTE PATIENT NAME: Neil Mendenhall : 1965 Procedure(s) (LRB): BYPASS FEMORAL-POPLITEAL OR FEMORAL-TIBIAL, POSTERIOR TIBIAL, PERONEAL ARTERY, OR OTHER DISTAL VESSELS, RE-DO (Left) Surgeon(s): Flo Aragon Estimated body mass index is 26.91 kg/(m2) as calculated from the following: Height as of this encounter: 167.6 cm (5' 6). Weight as of this encounter: 75.6 kg (166 lb 11.2 oz). ASA Class: 3E Adequate NPO status: Yes Allergies: ALLERGIES Allergen Reactions - Horizant [Gabapenti* Mental Status Change - Wellbutrin [Bupropi* Other: See Comments Took med on Wednesday Woke up 3 days later in hospital Airway Assessment: MP 1; Neck ROM: Full ROM without neurologic symptoms; Airway Evaluation: No significant abnormalities Dentition: Edentulous Symptoms of Sleep Apnea: Formally diagnosed but non-compliant with therapy Most recent lab results: Hemoglobin 12.4 11/11/2017 Hematocrit 39.3 11/11/2017 Potassium 3.9 11/11/2017 Platelet Count 561 11/11/2017 PT Sec 9.8 11/10/2017 APTT 36.2 11/11/2017 PT INR 0.9 11/10/2017 Creatinine 0.76 11/11/2017 HCG not indicated Vitals: 11/10/17 1809 11/10/17 1931 11/10/17 2033 11/11/17 0351 BP: 172/89 165/87 155/87 152/70 Pulse: 75 78 77 76 Resp: Temp: 36.5 ?C (97.7 ?F) 37.1 ?C (98.7 ?F) TempSrc: Oral Oral SpO2: 97% 99% 98% 96% Weight: 75.6 kg (166 lb 11.2 oz) Height: 167.6 cm (5' 6) Anesthesia History: Previous Anesthesia: No history of adverse event Family history of anesthetic problems: None Physical Exam and other tests: Lungs: Lungs clear to auscultation. Good diaphragmatic excursion. CHEST XRAY: Not indicated HEART EXAM:Regular rate and rhythm CARDIAC TESTS: 05-09-10 CONCLUSIONS Suboptimal apical acoustic windows. 1. Normal LV size and systolic function. EF=65%. Normal diastolic function. 2. Normal RV size and systolic function. 3. No signifcant valvular abnormalities. 4. Normal LA volume index=24 ml/m2. Normal RA size. [id number] Diagnosis:SINUS BRADYCARDIA Otherwise Normal ECG CAD HX: Pt denies HI and CAD Other Medical Problems/ Important Considerations: Pt can walk 2-3 flights of stairs and 4-5 block without SOB, CP, fainting, lightheadedness. Denies chest pain and SOB with exertion. GERD well controlled with no positional symptoms. Chronic Beta Juan medication administered within 24 hours: not indicated Anesthetic risks, benefits, alternatives, personnel and consent discussed: Yes Patient agrees to proceed: Yes Blood Products: Will accept Blood/Blood Products Anesthetic Plan: General ETT; Standard ASA Monitors and Invasive Hemodynamic Monitoring Arterial line Pain Management Plan: Parenteral or Oral EPIC Chart Review ACTIVE PROBLEM LIST Bipolar affective Carotid Artery Disease (Hcc) PAD (peripheral artery disease) Postoperative Pain Arterial Occlusion, Lower Extremity (Hcc) Bipolar disorder (HCC) Hyperlipidemia Neuropathic Pain Aissatou (Obstructive Sleep Apnea) Smoker Thrombus Toe Cyanosis PAST MEDICAL HISTORY Diagnosis Date - Carotid artery disease (HCC) PAST SURGICAL HISTORY Procedure Laterality Date - ANGIO TRANSLUM BALL ANGIO ANGELO 2008 No family history on file. Social History: Social History Substance Use Topics - Smoking status: Former Smoker Packs/day: 0.50 Years: 25.00 Types: Cigarettes Quit date: 09/01/2009 - Smokeless tobacco: Never Used Comment: currently using electronic cigarette - Alcohol use No No current facility-administered medications on file prior to encounter. Current Outpatient Prescriptions on File Prior to Encounter: clopidogrel (PLAVIX) 75 mg tablet Take 1 tablet by mouth once daily. oxyCODONE-acetaminophen (PERCOCET) 5-325 mg tablet Take 1- 2 tablets by mouth every 4 hours as needed for Pain. nitroglycerin (NITRO-BID) 2 % ointment Apply 0.5 g as directed twice daily. Apply in the morning and remove at night NIFEdipine ER (PROCARDIA XL) 30 mg 24 hr tablet Take 1 tablet by mouth once daily. Cholecalciferol, Vitamin D3, 5,000 unit cap Take 5,000 Units by mouth once daily. pregabalin (LYRICA) 225 mg capsule Take 225 mg by mouth twice daily. aspirin 81 mg chewable tablet Take 1 tablet by mouth once daily. pravastatin (PRAVACHOL) 20 mg tablet Take 20 mg by mouth once daily. lamoTRIgine (LAMICTAL) 200 mg tablet Take 200 mg by mouth once daily. aripiprazole(ABILIFY 20 MG TAB) Take one(1) tablet daily. Inpatient medications reviewed in [facility]. I have interviewed and examined the patient. I have reviewed the medical record and/or the pre-anesthesia evaluation, pertinent labs, and test results. This contains updated information obtained within 48 hours of Surgery/Procedure. SIGNATURE: MIO Sanchez DATE: November 11, 2017 TIME: 12:50 PM Attending Note I have personally performed a face to face assessment of the patient and have reviewed the AIRPLANE ELECTRICIAN/AA note. My mcadams findings include: Assessment/Plan are as documented. Other additions or changes: None Signature: Tyrell Valencia MD Date: November 11, 2017 Time: 2:47 PM BRIEF OP NOT Observed: 11/11/2017 Status: COMPLETED Source: [place] 12:30 PM [facility] REPOSITORY HNO ID: [id number] Author: Cyndy Espinosa MD Service: Vascular Surgery Author Type: Resident Type: Brief Op Note Filed: 11/11/2017 12:36 PM Note Text: BRIEF OPERATIVE / PROCEDURE NOTE LOG ID: [id number] Surgery/Procedure Date: 11/11/2017 Incision/Procedure Start Time: 10:53 Incision Close/Procedure End Time: 12:20 Surgeon(s)/Proceduralist(s) and Swimmer(s): Surgeon(s) and Role: * Flo Aragon - Paige No Additional Staff Procedure(s): BENITA Angio: Access: Right femoral artery. Sheath pulled, pressure held Closure: Starclose closure device Contrast: 120 Fluorotime: 23:19 min, 126 mGy Anesthesia: Procedural Sedation ASA Class: ASA Class:: II Findings:Left PT occlusion, left SFA to popliteal occlusion Pulses: LLE: PT dopplerable, DP no signal RLE: PT/DP biphasic signal Medications: Antiplatelet: Yes - Medication: Aspirin and plavix Dose: 81mg OD and 75 mg OD Anticoagulation: Yes Statin: Yes - Medication: Simvastatin Dose: 10mg OD Beta Juan: No - Reason: Not on beta juan preop Estimated Blood Loss: Minimal Specimens: None Complications: None Pre-Op/Pre-Procedure Diagnosis: Critical limb ischemia Post-Op/Post-Procedure Diagnosis: Critical limb ischemia SIGNATURE: Cyndy Espinosa MD PATIENT NAME: Neil Mendenhall DATE: November 11, 2017 TIME: 12:31 PM PAGER/CONTACT #: [phone] HISTORY PHYSICAL Observed: 11/11/2017 Status: COMPLETED Source: [place] 11:33 AM [facility] OTHER [place] REPOSITORY HNO ID: [id number] Author: Troy Mandujano Service: Critical Care Author Type: Resident Type: HANDP Filed: 11/11/2017 10:59 PM Note Text: HISTORY AND PHYSICAL EXAMINATION SERVICE DATE: 11/11/2017 SERVICE TIME: 11:33 AM PRIMARY CARE PHYSICIAN: Kathryn Galvan MD ASSESSMENT AND PLAN Neil Mendenhlal is a 52 year old female , chronic smoker with history of PVD s/p multiple interventions to LLE including baloon angioplasties of the left SFA x 3 and lysis in 2013 for ALI. RSFA angioplasty x 1 (2011) and Aortobifem angiogram, Right Fem access to Left PT, Lysis on 11/21/17 who was admitted on 11/10/2017 with L toe pain and discoloration while on dual anti-platelet therapy. Arterial US showed Occluded left proimal to distal SFA, left SFA stent and left MANISHA distal at ankle today. Now s/p Left femoral-above popliteal bypass with graft, attempted left posterior tibial endarterectomy Indication for ICU admission: close HD monitoring and vascular checks in setting of procedure above. Neuro: - Analgesia: Tylenol, Marzena, dilaudid STUDY ABROAD ADVISOR - Anxiety/Sedation/Itching: Benadryl PRN ? Cardiovascular: - HTN: hydralazine and labetalol PRN - CAD: Statin, ASA 81, plavix - ICU monitoring - IV Access: pIV ? Respiratory: - Incentive spirometry ? GI: - Nutrition/Diet: NPO ? Renal: (Baseline sCr: 0.74) - Urine output ok. sCr 0.74. Humphries indicated. - IVF NS at 100 - Electrolytes replete Ca, K >4, Phos >3, Mag >2. ? Heme/ID: - Hemoglobin ok. No evidence of bleeding. Transfuse for hgb < 7 or if symptomatic - WBC trend - Abx: none - DVT Prophylaxis: Plavix and heparin infusion at midnight ? Endo: - Glucose WNL. ? Wound Care: RLE imobile. - catheter/wire dressing in place ? MSK - Activity Level: Bedrest ? Dispo: SICU Plan to be discussed with Dr. Field. SUBJECTIVE HPI: 52 year old female , chronic smoker with history of PVD s/p multiple interventions to LLE including baloon angioplasties of the left SFA x 3 and lysis in 2013 for ALI. RSFA angioplasty x 1 (2011) and Aortobifem angiogram, Right Fem access to Left PT, Lysis on 11/21/17 who was admitted on 11/10/2017 with L toe pain and discoloration while on dual anti-platelet therapy. Arterial US showed Occluded left proimal to distal SFA, left SFA stent and left MANISHA distal at ankle today. Now s/p Left femoral-above popliteal bypass with graft, attempted left posterior tibial endarterectomy PAST MEDICAL HISTORY: PAST MEDICAL HISTORY Diagnosis Date - Carotid artery disease (HCC) PAST SURGICAL HISTORY: PAST SURGICAL HISTORY Procedure Laterality Date - ANGIO TRANSLUM BALL ANGIO ANGELO 2008 FAMILY HISTORY: No family history on file. SOCIAL HISTORY: Social History Substance Use Topics - Smoking status: Former Smoker Packs/day: 0.50 Years: 25.00 Types: Cigarettes Quit date: 09/01/2009 - Smokeless tobacco: Never Used Comment: currently using electronic cigarette - Alcohol use No MEDICATIONS: Prior to Admission Medications Prescriptions Prior to Admission: clopidogrel (PLAVIX) 75 mg tablet Take 1 tablet by mouth once daily. Disp: 30 tablet Rfl: 2 11/09/2017 at Unknown time oxyCODONE-acetaminophen (PERCOCET) 5-325 mg tablet Take 1- 2 tablets by mouth every 4 hours as needed for Pain. Disp: 120 tablet Rfl: 0 07/23/2016 at Unknown time nitroglycerin (NITRO-BID) 2 % ointment Apply 0.5 g as directed twice daily. Apply in the morning and remove at night Disp: 30 g Rfl: 0 Unknown at Unknown time NIFEdipine ER (PROCARDIA XL) 30 mg 24 hr tablet Take 1 tablet by mouth once daily. Disp: 30 tablet Rfl: 3 10/21/2017 at Unknown time Cholecalciferol, Vitamin D3, 5,000 unit cap Take 5,000 Units by mouth once daily. Disp: Rfl: 10/20/2017 at Unknown time pregabalin (LYRICA) 225 mg capsule Take 225 mg by mouth twice daily. Disp: Rfl: Unknown at Unknown time aspirin 81 mg chewable tablet Take 1 tablet by mouth once daily. Disp: Rfl: 0 10/21/2017 at Unknown time pravastatin (PRAVACHOL) 20 mg tablet Take 20 mg by mouth once daily. Disp: Rfl: 10/20/2017 at Unknown time lamoTRIgine (LAMICTAL) 200 mg tablet Take 200 mg by mouth once daily. Disp: Rfl: 10/21/2017 at Unknown time aripiprazole(ABILIFY 20 MG TAB) Take one(1) tablet daily. Disp: Rfl: 0 10/21/2017 at Unknown time CURRENT ALLERGIES: ALLERGIES Allergen Reactions - Horizant [Gabapenti* Mental Status Change - Wellbutrin [Bupropi* Other: See Comments Took med on Wednesday Woke up 3 days later in hospital Physical Exam: BP 152/70 Pulse 76 Temp 37.1 ?C (98.7 ?F) (Oral) Resp 18 Ht 167.6 cm (5' 6) Wt 75.6 kg (166 lb 11.2 oz) SpO2 96% BMI 26.91 kg/m2 General appearance: uncomfortable appearing, alert, in no mild distress, well-hydrated, well nourished Neuro: Awake, alert, Sensation grossly intact. Skin: skin color, texture, turgor normal, no suspicious rashes or lesions HEENT: Normocephalic, EOMI, mucosa moist Lungs: clear to auscultation, no wheezing or rhonchi Heart: RRR without murmur, gallop, or rubs. Abdomen: Abdomen soft, non-tender, non-distended. Left LE: Left groin, thigh and leg incision C/D/I Labs: CBC, BMP, MG, PHOS Recent Labs 11/11/17 0429 11/10/17 1515 10/24/17 0433 10/23/17 1121 10/23/17 0324 04/21/14 1220 04/21/14 0400 04/20/14 2040 WBC 7.55 8.82 7.90 10.17 < > -- < > 10.13 7.92 11.25* HB 12.4 13.0 11.6 12.2 < > -- < > 10.9* 10.9* 11.7 HCT 39.3 40.1 34.5* 37.1 < > -- < > 33.3* 33.4* 33.8* PLT 561* 579* 284 271 < > -- < > 292 313 291 NA 139 140 142 -- -- 139 < > 137 140 139 K 3.9 4.1 3.7 -- -- 3.7 < > 4.1 3.8 3.9 CHLOR 105 103 103 -- -- 103 < > 105 107 106 CO2 20* 22* 23 -- -- 21* < > 23 23 21* BUN 15 15 8 -- -- 6* < > 7* 7* 9 CREAT 0.76 0.73 0.72 -- -- 0.66* < > 0.81 0.87 0.96 GLUC 101* 102* 97 -- -- 87 < > 97 146* 110* CA 8.9 9.6 8.3* -- -- 8.3* < > 8.3* 8.4* 8.8 MG 2.3 -- -- -- -- 2.1 -- 2.1 2.2 2.1 P -- -- -- -- -- 3.1 -- 3.1 3.5 3.1 < > = values in this interval not displayed. Liver Function, Amylase, AND Lipase Recent Labs 11/10/17 1515 04/20/14 2040 01/15/11 1712 TPROT 8.3 7.0 7.6 ALB 4.4 3.6 4.48 ALT 21 26 -- AST 11 16 -- ALKPHOS 70 77 -- TBILI 0.2 0.3 -- Coags Recent Labs 11/11/17 0429 11/10/17 2120 11/10/17 1515 10/23/17 2320 10/23/17 0551 10/22/17 2229 10/22/17 1056 APTT 36.2* 27.9 24.9 27.8 36.2* 39.9* 98.5* INR -- -- 0.9 -- 1.3 1.2 1.0 Current Medications: Current hospital medications: NaCl 0.9% iv infusion 100 mL/hr INTRAVENOUS CONTINUOUS alteplase 10 mg in NaCl 0.9% 250 mL (ACTIVASE) 0.5-1 mg/hr INTRAVENOUS CONTINUOUS alteplase 10 mg in NaCl 0.9% 250 mL (ACTIVASE) 0.5-1 mg/hr INTRAVENOUS CONTINUOUS heparin iv infusion (LOW DOSE ACS/NOMOGRAM) 25,000 units in NaCl 0.45% 250 mL PREMIX 0-3,000 Units/hr INTRAVENOUS CONTINUOUS heparin RATE CHANGE bolus 1,000-4,000 Units for subtherapeutic aptt results 1,000-4,000 Units INTRAVENOUS PRN ARIPiprazole 20 mg tab(s) (ABILIFY) 20 mg ORAL DAILY lamoTRIgine 200 mg tab(s) (LaMICtal) 200 mg ORAL DAILY simvastatin 10 mg tab(s) (ZOCOR) 10 mg ORAL DAILY aspirin 81 mg chewable tab(s) 81 mg ORAL DAILY cholecalciferol 5,000 Units tab(s) (VITAMIN D3) 5,000 Units ORAL DAILY NIFEdipine XL 30 mg tab(s) (ADALAT CC) 30 mg ORAL DAILY oxyCODONE-acetaminophen 5-325 mg 1-2 tablet (PERCOCET) 1-2 tablet ORAL q 6 H PRN clopidogrel 75 mg tab(s) (PLAVIX) 75 mg ORAL DAILY morphine 1 mg injection 1 mg INTRAVENOUS q 4 H PRN Signature: Troy Mandujano MD - pager [phone] (On weekends and weekdays after 6 PM please contact stallion keeper resident) Date: November 11, 2017 Time: 11:33 AM Patient Name: Neil Mendenhall PROGRESS Observed: 11/11/2017 Status: COMPLETED Source: [place] 7:34 AM [facility] OTHER CAMPUS REPOSITORY HNO ID: [id number] Author: Cyndy Hays (Jamilah) MD Jesús Service: Vascular Surgery Author Type: Resident Type: Progress Notes Filed: 11/11/2017 7:46 AM Note Text: [facility] PROGRESS NOTE Service Date: 11/11/2017Admit Date: 11/10/2017Service Time: 7:34 AM LOS: 0 day(s) Primary Service: Vascular Surgery Vascular Physician: Angel Baig MD Interval Events/Issues: No acute issues overnight. Pain over ankle improving, however pain in toes are persistently painful. Pedal signals not dopplerable this AM. Foot feels cooler. Motor and sensory intact. Subjective Current hospital medications: heparin iv infusion (LOW DOSE ACS/NOMOGRAM) 25,000 units in NaCl 0.45% 250 mL PREMIX 0-3,000 Units/hr INTRAVENOUS CONTINUOUS heparin RATE CHANGE bolus 1,000-4,000 Units for subtherapeutic aptt results 1,000-4,000 Units INTRAVENOUS PRN ARIPiprazole 20 mg tab(s) (ABILIFY) 20 mg ORAL DAILY lamoTRIgine 200 mg tab(s) (LaMICtal) 200 mg ORAL DAILY simvastatin 10 mg tab(s) (ZOCOR) 10 mg ORAL DAILY aspirin 81 mg chewable tab(s) 81 mg ORAL DAILY cholecalciferol 5,000 Units tab(s) (VITAMIN D3) 5,000 Units ORAL DAILY NIFEdipine XL 30 mg tab(s) (ADALAT CC) 30 mg ORAL DAILY oxyCODONE-acetaminophen 5-325 mg 1-2 tablet (PERCOCET) 1-2 tablet ORAL q 6 H PRN clopidogrel 75 mg tab(s) (PLAVIX) 75 mg ORAL DAILY morphine 1 mg injection 1 mg INTRAVENOUS q 4 H PRN ALLERGIES Allergen Reactions - Horizant [Gabapenti* Mental Status Change - Wellbutrin [Bupropi* Other: See Comments Took med on Wednesday Woke up 3 days later in hospital Objective PHYSICAL EXAM: Patient Vitals for the past 24 hrs: BP Temp Temp src Pulse Resp SpO2 Height Weight 11/11/17 0351 152/70 37.1 ?C (98.7 ?F) Oral 76 18 96 % - - 11/10/17 2033 155/87 36.5 ?C (97.7 ?F) Oral 77 20 98 % 167.6 cm (5' 6) 75.6 kg (166 lb 11.2 oz) 11/10/17 1931 165/87 - - 78 16 99 % - - 11/10/17 1809 172/89 - - 75 16 97 % - - 11/10/17 1750 180/86 - - 70 15 98 % - - 11/10/17 1607 154/77 - - 80 15 98 % - - 11/10/17 1536 161/109 - - 76 18 100 % - - 11/10/17 1454 137/97 37.2 ?C (99 ?F) Oral 88 16 98 % 167.6 cm (5' 6) 74.4 kg (164 lb) Intake/Output Summary (Last 24 hours) at 11/11/17 0734 Last data filed at 11/11/17 0600 Gross per 24 hour Intake 400 ml Output 502 ml Net -102 ml CONSTITUTIONAL: Well developed and No acute distress NEUROLOGIC/PSYCHIATRIC: Oriented to time, place AND person and Alert HEENT: Fair dentition LUNGS: Respiratory effort: normal on RA HEART: Regular rate AND rhythm ABDOMEN: Soft INTEGUMENTARY: Wound - No SURGICAL SITES: None MUSCULOSKELETAL: No deformities Pulses/Signals: Dorsalis Pedis Right: Triphasic Signal - Left: No Signal Posterior Tibial Right: Triphasic Signal - Left: No Signal DATA: Laboratory: Recent Labs 11/11/17 0429 11/10/17 1515 WBC 7.55 8.82 HB 12.4 13.0 HCT 39.3 40.1 PLT 561* 579* Recent Labs 11/11/17 0429 11/10/17 1515 NA 139 140 K 3.9 4.1 BUN 15 15 CREAT 0.76 0.73 GLUC 101* 102* MG 2.3 -- Recent Labs 11/11/17 0429 11/10/170 11/10/17 1515 APTT 36.2* 27.9 24.9 INR -- -- 0.9 Assessment/Plan Impression: This is a 52 year old female who is HD# 1 for left foot pain with discoloration of 2nd and 4th toe Plan: - STAT Arterial duplex this AM - Keep NPO, IVF prehydration 100cc/h - Continue hep gtt - Continue aspirin/plavix - PRN pain control - Possible LE angiography with intervention today - Plans discussed with Dr. Baig No problems updated. SIGNATURE: Cyndy Espinosa MD PATIENT NAME: Neil Mendenhall DATE: November 11, 2017 TIME: 7:34 AM PAGER/CONTACT #: [phone] PTT,ANTICOAG THERAPY Collected: 11/11/2017 Status: F Source: [place] 4:29 AM [facility] OTHER CAMPUS REPOSITORY TYPE CODE TESTS RESULT OUT OF RANGE REFERENCE UNITS LAB APTT 23.0-32.4 sec High APTT 36.2 Result Comment: Unfractionated Heparin Therapeutic Ranges: Standard Heparin Nomogram: 53 to 78 seconds (anti-Xa level of 0.3 to 0.7 U/ml) Low Dose/ACS Nomogram: 49 to 67 seconds (anti-Xa level of 0.2 to 0.5 U/ml) Stroke Treatment Nomogram: 49 to 67 seconds (anti-Xa level of 0.2 to 0.5 U/ml) Note: The APTT therapeutic range has been determined for the current lot of laboratory APTT reagent in use throughout the [facility]. Performed By: #### PTTAC #### [place] [address] CBC Collected: 11/11/2017 Status: F Source: [place] 4:29 AM [facility] OTHER [place] REPOSITORY TYPE CODE TESTS RESULT OUT OF REFERENCE UNITS RANGE LAB WBC 3.70-11.00 k/uL WBC 7.55 LAB RBC 3.90-5.20 m/uL RBC 4.53 LAB HGB 11.5-15.5 g/dL Hemoglobin 12.4 LAB HCT 36.0-46.0 % Hematocrit 39.3 LAB MCV 80.0-100.0 fL MCV 86.8 LAB MCH 26.0-34.0 pG MCH 27.4 LAB MCHC 30.5-36.0 g/dL MCHC 31.6 LAB RDWCV 11.5-15.0 % RDW-CV 14.2 LAB PLTCT 150-400 k/uL Platelet High Count 561 LAB MPV 9.0-12.7 fL MPV 9.9 Performed By: #### KAITLYNN DUONG, MG1 #### [place] [address] BASIC METABOLIC PANL Collected: 11/11/2017 Status: F Source: [place] 4:29 AM [facility] OTHER CAMPUS REPOSITORY TYPE CODE TESTS RESULT OUT OF REFERENCE UNITS RANGE LAB GLU 65-100 mg/dL Glucose High 101 LAB BUN 8-25 mg/dL BUN 15 LAB CRET 0.70-1.40 mg/dL Creatinine 0.76 LAB NA 132-148 mmol/L Sodium 139 LAB K 3.5-5.0 mmol/L Potassium 3.9 LAB CL 98-110 mmol/L Chloride 105 LAB CO2 23-32 mmol/L Low CO2 20 LAB AGAP 9-18 mmol/L Anion Gap 14 LAB CA 8.5-10.5 mg/dL Calcium, Total 8.9 LAB GFRAA >60 eGFR- >60 Amer. LAB GFRNAA >60 . eGFR-All Other Races >60 Performed By: #### KAITLYNN DUONG, MG1 #### [place] [address] MAGNESIUM Collected: 11/11/2017 Status: F Source: [place] 4:29 AM [facility] OTHER [place] REPOSITORY TYPE CODE TESTS RESULT OUT OF REFERENCE UNITS RANGE LAB MG 1.7-2.6 mg/dL Magnesium 2.3 Performed By: #### KAITLYNN DUONG, MG1 #### [place] [address] APTT Collected: 11/10/2017 Status: F Source: [place] 9:20 PM [facility] OTHER CAMPUS REPOSITORY TYPE CODE TESTS RESULT OUT OF RANGE REFERENCE UNITS LAB APTT 23.0-32.4 sec APTT 27.9 Result Comment: Unfractionated Heparin Therapeutic Ranges: Standard Heparin Nomogram: 53 to 78 seconds (anti-Xa level of 0.3 to 0.7 U/ml) Low Dose/ACS Nomogram: 49 to 67 seconds (anti-Xa level of 0.2 to 0.5 U/ml) Stroke Treatment Nomogram: 49 to 67 seconds (anti-Xa level of 0.2 to 0.5 U/ml) Note: The APTT therapeutic range has been determined for the current lot of laboratory APTT reagent in use throughout the [facility]. Performed By: #### PTT #### [place] [address] NURSING PROG Observed: 11/10/2017 Status: COMPLETED Source: [place] 8:20 PM [facility] REPOSITORY HNO ID: [id number] Author: Rosemary JeffriesRn) SARAH Chawla Service: (none) Author Type: Registered Nurse Type: Nursing Progress Note Filed: 11/11/2017 5:43 AM Note Text: Nursing Progress Note Patient Name: Neil Mendenhall Patient Location: [place] [address] [address]* Transfer Note: Patient transferred into room/unit 5PAV 544-1 in stable condition. Actions taken: No futher actions taken at this time. Will continue to monitor and check with patient. Patient alert and oriented, c/o 8/10 left leg pain, medicated with pain meds as ordered, on heparin drip at 900 units/hr, posterior tibial pulse present on doppler warm to touch and looks cyanotic, safety measures in place, call de guzman within reach, will continue to monitor. This note was completed by: Rosemary Chawla RN ED NOTE Observed: 11/10/2017 Status: COMPLETED Source: [place] 7:30 PM [facility] REPOSITORY HNO ID: [id number] Author: Vivian JeffriesRn) SARAH Moon Service: (none) Author Type: Registered Nurse Type: ED Notes Filed: 11/10/2017 7:30 PM Note Text: [phone], Laney, sister Patient is aware of admission and bed assignment ED NOTE Observed: 11/10/2017 Status: COMPLETED Source: [place] 6:31 PM [facility] OTHER CAMPUS REPOSITORY HNO ID: [id number] Author: Shilpa (Rn) SARAH Sorenson Service: (none) Author Type: Registered Nurse Type: ED Notes Filed: 11/10/2017 6:31 PM Note Text: Pt reports pain increasing. Pt provided with pain control per order. Pt repositioned for comfort in bed. Warm blankets applied. Call light is within reach. CONSULT Observed: 11/10/2017 Status: COMPLETED Source: [place] 4:54 PM [facility] OTHER CAMPUS REPOSITORY HNO ID: [id number] Author: Ingris Mcpherson MD Service: Vascular Surgery Author Type: Resident Type: Consults Filed: 11/10/2017 5:21 PM Note Text: [facility] INITIAL CONSULT Service Date: 11/10/2017 Admit Date: 11/10/2017 Service Time: 4:00PM LOS: 0 Requesting Provider: Dr. Salcedo Vascular Physician: Angel Baig MD Subjective Chief Complaint: Left toe pain and discoloration HPI: Neil Mendenhall is a 52 year old White female referred by Dr. Salcedo for an opinion regarding management of left toe pain and discoloration. Location: left toes, worst 2nd AND 4th Quality: worsening Severity: moderate to severe Duration: 2 weeks Context: with contact, e.g. While walking Of note, recently admitted for LLE ischemia. Underwent lysis and then stenting of L fem-popliteal artery as well as angioplasty of distal PT. She was discharged on ASA and plavix, but started having left toe pain a few days following discharge. She presents today because of worsening pain and discoloration of the left 2nd and 4th toes a well as ankle. PAST MEDICAL HISTORY Diagnosis Date - Carotid artery disease (HCC) PAST SURGICAL HISTORY Procedure Laterality Date - ANGIO TRANSLUM BALL ANGIO ANGELO 2008 [id number] No family history on file. Social History Substance Use Topics - Smoking status: Former Smoker Packs/day: 0.50 Years: 25.00 Types: Cigarettes Quit date: 09/01/2009 - Smokeless tobacco: Never Used Comment: currently using electronic cigarette - Alcohol use No (Not in a hospital admission) Current hospital medications: heparin iv infusion (LOW DOSE ACS/NOMOGRAM) 25,000 units in NaCl 0.45% 250 mL PREMIX 0-3,000 Units/hr INTRAVENOUS CONTINUOUS heparin RATE CHANGE bolus 1,000-4,000 Units for subtherapeutic aptt results 1,000-4,000 Units INTRAVENOUS PRN heparin nomogram - NO INITIAL BOLUS OTHER ONCE (heparin bolus) ALLERGIES Allergen Reactions - Horizant [Gabapenti* Mental Status Change - Wellbutrin [Bupropi* Other: See Comments Took med on Wednesday Woke up 3 days later in hospital COMPLETE REVIEW OF SYSTEMS CONSTITUTIONAL: No weight loss, malaise or fevers. HEENT: Negative for frequent or significant headaches, No changes in hearing or vision, no nose bleeds or other nasal problems. RESPIRATORY: Negative for cough, wheezing, or shortness of breath CARDIOVASCULAR: Negative for chest pain, leg swelling or palpitations GI: Negative for abdominal discomfort, blood in stools or black stools or change in bowel habits. : No history of dysuria, frequency, or incontinence and No difficulty urination, nocturia >1 times per night or hematuria. MUSCULOSKELETAL: Negative for joint pain or swelling, back pain or muscle pain. ENDOCRINE: Negative for cold or heat intolerance, polyuria, polydipsia and goiter HEMATOLOGIC/LYMPHATIC: Negative for prolonged bleeding, bruising easily or swollen nodes. NEUROLOGIC: No history or headaches, syncope, paralysis, seizures or tremors. INTEGUMENTARY: Negative for lesions, rash, and itching. Objective PHYSICAL EXAM Physical Exam Performed Patient Vitals for the past 24 hrs: BP Temp Temp src Pulse Resp SpO2 Height Weight 11/10/17 1607 154/77 - - 80 15 98 % - - 11/10/17 1536 161/109 - - 76 18 100 % - - 11/10/17 1454 137/97 37.2 ?C (99 ?F) Oral 88 16 98 % 167.6 cm (5' 6) 74.4 kg (164 lb) CONSTITUTIONAL: Well developed and Well nourished NEUROLOGIC/PSYCHIATRIC: Oriented to time, place AND person HEENT: PERRLA LUNGS: Clear HEART: Regular rate AND rhythm ABDOMEN: Soft and Non-tender INTEGUMENTARY: Left 2nd and 4th toes cyanotic, sensitive to touch, motor function intact SURGICAL SITES: None MUSCULOSKELETAL: No deformities Pulses/Signals: Carotid Brachial Radial Ulnar Femoral Popliteal Dorsalis Pedis Posterior Tibial Peroneal Right Palpable +2 Palpable +2 Palpable +2 Palpable +2 Palpable +2 Biphasic Signal Biphasic Triphasic Signal Biphasic Signal Left Palpable +2 Palpable +2 Palpable +2 Palpable +2 Palpable +2 Biphasic Signal Biphasic Signal Biphasic Signal Biphasic Signal Does the patient have critical limb ischemia, rest pain, tissue loss or gangrene?: Yes W: Wound/ Clinical Category SVS Grades for rest pain and wounds tissue loss (ulcers and gangrene) 0 (ischemia rest pain) no ulcer, no gangrene I: Ischemia Hemodynamics/perfusion: Measure TP or TcpO2 if ARELI incompressible (> 1.3) Ultrasound pending FI: Foot Infection SVS Grades: 0 (none, uninfected) none of the following present: local swelling or induration, erythemia > 0.5 to </- 2cm around ulcer, local tenderness or pain,local warmth, purulent discharge WIFI: Wound: 0 Ischemia: pending Foot Infection: 0 DATA: Laboratory: Recent Labs 11/10/17 1515 WBC 8.82 HB 13.0 HCT 40.1 PLT 579* Recent Labs 11/10/17 1515 NA 140 K 4.1 BUN 15 CREAT 0.73 GLUC 102* Recent Labs 11/10/17 1515 APTT 24.9 INR 0.9 Radiology: Arterial US to be ordered Impression/Recommendations Impression: 52 yo F w h/o bipolar disorder, PVD s/p multiple angio procedures, bilateral lower extremity stents who presents following procedures in early October. Likely microemboli or restenosis while dual anti-platelet therapy. Plan: Admit for observation Continue heparin gtt NPO, IVF Vascular US tomorrow morning including PT all the way down to the foot May require intervention pending imaging results SIGNATURE: Ingris Mcpherson MD PATIENT NAME: Neil Mendenhall DATE: November 10, 2017 TIME: 4:54 PM PAGER/CONTACT #: [phone] ED NOTE Observed: 11/10/2017 Status: COMPLETED Source: [place] 3:44 PM [facility] OTHER CAMPUS REPOSITORY HNO ID: [id number] Author: Vivian (Rn) SARAH Moon Service: (none) Author Type: Registered Nurse Type: ED Notes Filed: 11/10/2017 3:45 PM Note Text: Vascular at bedside to assess patient, pulses doppler ed. ED NOTE Observed: 11/10/2017 Status: COMPLETED Source: [place] 3:44 PM [facility] OTHER CAMPUS REPOSITORY HNO ID: [id number] Author: Shilpa (Rn) SARAH Sorenson Service: (none) Author Type: Registered Nurse Type: ED Notes Filed: 11/10/2017 3:45 PM Note Text: Received report. Assumed care of pt. sales and marketing vice president at the bedside and was able to hear pulses in the bilateral feet using a doppler. Medicated for pain. Heparin infusing without difficulty. ED NOTE Observed: 11/10/2017 Status: COMPLETED Source: [place] 3:21 PM [facility] OTHER CAMPUS REPOSITORY HNO ID: [id number] Author: Vivian (Rn) SARAH Moon Service: (none) Author Type: Registered Nurse Type: ED Notes Filed: 11/10/2017 3:22 PM Note Text: Patient requesting pain medication, dr Mendez aware ED PROV NOTE Observed: 11/10/2017 Status: COMPLETED Source: [place] 3:18 PM [facility] OTHER [place] REPOSITORY HNO ID: [id number] Author: Swapnil Salcedo DO Service: Family Practice Author Type: Physician Type: ED Provider Notes Filed: 11/11/2017 10:44 AM Note Text: ED Provider Note Patient Name: Neil Mendenhall SERVICE DATE: 11/10/17 History Patient presents with: Pain (foot): black/red toes. pulse not detected in triage. cap refill >3 seconds. ischemic LLE, with recent surgery HPI Ms. Neil Mendenhall is a 52 year old female with a history of PAD s/p bilateral SFA interventions and chronic smoker (quit one month ago) who presents with left foot pain. Patient has had multiple interventions to LLE including baloon angioplasties of the left SFA x 3 and lysis in 2013 for ALI and RSFA angioplasty x 1 (2011). Recently admitted on 10/21/2017 for left leg ischemic pain due to left femoral artery occlusion for which she underwent thrombolysis with [facility]. States left foot pain has been getting worse for 2 weeks. Today, her left toes were cool to the touch and her left 2nd toe appeared cyanotic. No palpable pulses in left foot. Social History: Smoked about 1/3 ppd for > 30 years. Quit one month ago. PAST MEDICAL HISTORY Diagnosis Date - Carotid artery disease (HCC) PAST SURGICAL HISTORY Procedure Laterality Date - ANGIO TRANSLUM BALL ANGIO ANGELO 2008 [id number] No family history on file. Social History Social History Main Topics - Smoking status: Former Smoker Packs/day: 0.50 Years: 25.00 Types: Cigarettes Quit date: 09/01/2009 - Smokeless tobacco: Never Used Comment: currently using electronic cigarette - Alcohol use No - Drug use: Not on file - Sexual activity: Not on file ALLERGIES Allergen Reactions - Horizant [Gabapenti* Mental Status Change - Wellbutrin [Bupropi* Other: See Comments Took med on Wednesday Woke up 3 days later in hospital Review of Systems Constitutional: Negative for fatigue and fever. Respiratory: Negative for cough, shortness of breath and wheezing. Cardiovascular: Negative for chest pain and palpitations. Gastrointestinal: Negative for abdominal pain, diarrhea and vomiting. Musculoskeletal: Left foot pain Skin: Left toes cool to touch, change in color Neurological: Negative for dizziness, weakness, numbness and headaches. Physical Exam BP 154/77 Pulse 80 Temp (Src) 99 (Oral) Resp 15 Ht 5' 6 (1.68m) Wt 164 lb (74.4kg) SpO2 98% BMI 26.48 kg/(m2). Physical Exam Constitutional: She appears well-developed and well-nourished. She appears distressed. HENT: Head: Normocephalic and atraumatic. Cardiovascular: Normal rate, regular rhythm and normal heart sounds. No murmur heard. Pulmonary/Chest: Effort normal. No respiratory distress. She has wheezes. She has no rales. Diffuse expiratory wheezing Abdominal: Soft. Bowel sounds are normal. She exhibits no distension. There is no tenderness. Musculoskeletal: Left dorsalis pedis (DP) and posterior tibial (PT) pulses are not palpable. Left DP and PT pulses were found on doppler. Right DP and PT on doppler. Able to move left foot and toes. Sensation intact. Palpable femoral pulses. Popliteal pulses found on doppler. Skin: Left toes cool to touch with mottled skin. Left second toe is cyanotic with blue-blackish color. Diagnostic Testing ED Labs Ordered and Reviewed COMPREHENSIVE METABOLIC PANEL (AK,AV,EU,FV,HL,JILLIAN,MM,SP) - Abnormal; Notable for the following: Result Value Ref Range Glucose 102 (*) 65 - 100 mg/dL CO2 22 (*) 23 - 32 mmol/L All other components within normal limits CBC + PLT (AK,AV,EU,FV,HL,JILLIAN,MM,SP) - Abnormal; Notable for the following: Platelet Count 579 (*) 150 - 400 k/uL All other components within normal limits PTT, ANTICOAGULANT THERAPY (AV,EU,FV,HL,JILLIAN,MM,SP) PROTHROMBIN TIME / PT (AK,AV,EU,FV,HL,JILLIAN,MM,SP) Procedures Medical Decision Making / ED Course ED Course Others' Documentation Comment By Time EKG Review/Interpretation: The patient's EKG was reviewed and demonstrated a sinus bradycardia at 56 beats per minute, normal axis and QRS complex normal, normal KY and QT intervals and ST segment normal, reviewed and interpreted by myself No additional acute changes are noted. Electronically verified by DO Swapnil Malin DO 11/10 4443 Vascular surgery was consulted. Patient was started on a low dose heparin drip. Given morphine 4 mg IV with some improvement in pain. Labs: - CBC showed thrombocytosis with platelets 579. No anemia or leukocytosis. - Coagulation studies showed PT 9.8, PTT 24.9, and INR 0.9 - CMP is unremarkable Encounter Diagnosis ICD-10-CM 1. Ischemic pain of foot, left M79.672 I99.9 2. PAD (peripheral artery disease) I73.9 3. Thrombocytosis (HCC) D47.3 Plan The Patient was ADMITTED TO: Regular nursing floor. Admit to observation. Admitted under Vascular Surgery attending, Dr. Matheus Baig. Condition at time of disposition: stable SIGNATURE: Nicole Mendez MD, PGY 3 Family Medicine Nicole Mendez 11/10/17 1914 Attending Note I evaluated the patient and personally participated in the mcadams components. I agree with the resident's findings and plan as documented and have discussed the case and management of the patient's care with the resident. 52 yo female with PAD, recent revascularization procedure on left leg, presents with days of worsening pain in her left foot and now discoloration of multiple toes on left foot. On exam cannot doppler pulses (DP and PT) on left foot. She has ischemic appearing toes to left foot, cool to touch. She was started on IV heparin and urgent vascular surgery consult obtained. She is admitted to vascular surgery, guarded. Electronically verified by DO Swapnil Malin DO 11/11/17 1044 CBC Collected: 11/10/2017 Status: F Source: [place] 3:15 PM [facility] OTHER CAMPUS REPOSITORY TYPE CODE TESTS RESULT OUT OF REFERENCE UNITS RANGE LAB WBC 3.70-11.00 k/uL WBC 8.82 LAB RBC 3.90-5.20 m/uL RBC 4.72 LAB HGB 11.5-15.5 g/dL Hemoglobin 13.0 LAB HCT 36.0-46.0 % Hematocrit 40.1 LAB MCV 80.0-100.0 fL MCV 85.0 LAB MCH 26.0-34.0 pG MCH 27.5 LAB MCHC 30.5-36.0 g/dL MCHC 32.4 LAB RDWCV 11.5-15.0 % RDW-CV 13.9 LAB PLTCT 150-400 k/uL Platelet High Count 579 LAB MPV 9.0-12.7 fL MPV 9.8 Performed By: #### CBC, PT, PTTAC #### [place] [address] PROTIME Collected: 11/10/2017 Status: F Source: [place] 3:15 PM [facility] OTHER CAMPUS REPOSITORY TYPE CODE TESTS RESULT OUT OF RANGE REFERENCE UNITS LAB PSEC 9.7-13.0 sec PT Sec 9.8 LAB INR 0.9-1.3 PT INR 0.9 Result Comment: Vitamin K Antagonist (VKA) Therapeutic Range: INR 2 to 3 (Target INR of 2.5) Note: For patients treated with VKA drugs, such as warfarin, the [employer] 2012 Guideline recommends a therapeutic INR range of 2 to 3 (target INR of 2.5). This recommendation includes high-risk patients with antiphospholipid syndrome with previous arterial or venous thromboembolism, current-generation mechanical or bioprosthetic aortic heart valve replacement. Note: Patients with mechanical aortic valve replacement and additional risk factors for thromboembolic events (atrial fibrillation, previous thromboembolism, LV dysfunction, hypercoagulable conditions) or an older generation mechanical AVR (i.e., ball in-Cage) or any mechanical MVR should have a INR therapeutic range of 2.5 to 3.5 (target INR of 3). Nimesh TAVARES, et al. Chest 2012, 141:7S-47S Dereck RA, et al. [facility] 2017, 70: 252-289 Performed By: #### CBC, PT, PTTAC #### [facility] [address] [place] [address] PTT,ANTICOAG THERAPY Collected: 11/10/2017 Status: F Source: [place] 3:15 PM [facility] OTHER CAMPUS REPOSITORY TYPE CODE TESTS RESULT OUT OF RANGE REFERENCE UNITS LAB APTT 23.0-32.4 sec APTT 24.9 Result Comment: Unfractionated Heparin Therapeutic Ranges: Standard Heparin Nomogram: 53 to 78 seconds (anti-Xa level of 0.3 to 0.7 U/ml) Low Dose/ACS Nomogram: 49 to 67 seconds (anti-Xa level of 0.2 to 0.5 U/ml) Stroke Treatment Nomogram: 49 to 67 seconds (anti-Xa level of 0.2 to 0.5 U/ml) Note: The APTT therapeutic range has been determined for the current lot of laboratory APTT reagent in use throughout the [facility]. Performed By: #### CBC, PT, PTTAC #### [facility] [address] [place] [address] COMP METABOLIC PANEL Collected: 11/10/2017 Status: F Source: [place] 3:15 PM [facility] REPOSITORY TYPE CODE TESTS RESULT OUT OF REFERENCE UNITS RANGE LAB TP 6.0-8.4 g/dL Protein, Total 8.3 LAB ALB 3.5-5.0 g/dL Albumin 4.4 LAB CA 8.5-10.5 mg/dL Calcium, Total 9.6 LAB TBIL 0.0-1.5 mg/dL Bilirubin, Total 0.2 LAB ALKP 40-150 U/L Alkaline Phosphatase 70 LAB AST 7-40 U/L AST 11 LAB GLU 65-100 mg/dL Glucose High 102 LAB BUN 8-25 mg/dL BUN 15 LAB CRET 0.70-1.40 mg/dL Creatinine 0.73 LAB NA 132-148 mmol/L Sodium 140 LAB K 3.5-5.0 mmol/L Potassium 4.1 LAB CL 98-110 mmol/L Chloride 103 LAB CO2 23-32 mmol/L CO2 Low 22 LAB AGAP 9-18 mmol/L Anion Gap 15 LAB ALT 0-45 U/L ALT 21 LAB GFRAA >60 eGFR- >60 Amer. LAB GFRNAA >60 . eGFR-All Other Races >60 Performed By: #### CMP #### [place] [address] ED NOTE Observed: 11/10/2017 Status: COMPLETED Source: [place] 3:04 PM [facility] REPOSITORY HNO ID: [id number] Author: Vivian JeffriesRn) SARAH Moon Service: (none) Author Type: Registered Nurse Type: ED Notes Filed: 11/10/2017 3:08 PM Note Text: Patient presents with discoloration and pain to toes on left foot. States was admitted on 10/22 and had angiogram, on 10/23 had catheter placed in LLE with stent. States having pain and discoloration since procedure but has gradually been increasing. Unable to detect pulses without doppler. Redness noted to foot, gradually changes to white into the base of toes and then tips of the toes red/black in color. Drainage noted to second toe ED NOTE Observed: 11/10/2017 Status: COMPLETED Source: [place] 2:54 PM [facility] REPOSITORY HNO ID: [id number] Author: Tomy JeffriesRn) SARAH Correia Service: (none) Author Type: Registered Nurse Type: ED Notes Filed: 11/10/2017 2:54 PM Note Text: Bed: 17-ED Expected date: Expected time: Means of arrival: Comments: Triage ED TRIAGE NOTE Observed: 11/10/2017 Status: COMPLETED Source: [place] 2:54 PM [facility] REPOSITORY HNO ID: [id number] Author: Yuri Ames (Pa) Service: Emergency Medicine Author Type: Physician Swimmer Type: ED Triage Notes Filed: 11/10/2017 2:55 PM Note Text: ED INTAKE NOTE Patient Name: Neil Mendenhall Service Date: 11/10/17 BRIEF HPI: 52 y/o female present with left leg pain. recentla dmitted 4/ with left leg ischemia, underwent thrombolysis with [facility] of flow. Worse pain x 2 weeeks. BRIEF EXAM: Awake and Alert TEAGUE Left toes cool with abnormal cap refill, 2nd left toe appears cyanotic, no palpable pulse in left foot INTAKE WORKUP: Roomed immediately concern for ischemic foot SIGNATURE: Yuri Ames PA-C HOSP Observed: 11/10/2017 Status: COMPLETED Source: [place] 12:00 AM CLINIC OTHER CAMPUS REPOSITORY Patient:Neil Mendenhall MRN: <[id number]> Height:5' 6(1.676 m) Weight:166 lb 11.2 oz (75.615 kg) Outpatient Medications as of 11/11/17: clopidogrel (PLAVIX) 75 mg tablet oxyCODONE-acetaminophen (PERCOCET) 5-325 mg tablet nitroglycerin (NITRO-BID) 2 % ointment NIFEdipine ER (PROCARDIA XL) 30 mg 24 hr tablet Cholecalciferol, Vitamin D3, 5,000 unit cap pregabalin (LYRICA) 225 mg capsule aspirin 81 mg chewable tablet pravastatin (PRAVACHOL) 20 mg tablet lamoTRIgine (LAMICTAL) 200 mg tablet aripiprazole(ABILIFY 20 MG TAB) Admission/Clinic Administered Medications as of 11/11/17: NaCl 0.9% iv infusion alteplase 10 mg in NaCl 0.9% 250 mL (ACTIVASE) alteplase 10 mg in NaCl 0.9% 250 mL (ACTIVASE) heparin iv infusion (LOW DOSE ACS/NOMOGRAM) 25,000 units in NaCl 0.45% 250 mL PREMIX heparin RATE CHANGE bolus 1,000-4,000 Units for subtherapeutic aptt results ARIPiprazole 20 mg tab(s) (ABILIFY) lamoTRIgine 200 mg tab(s) (LaMICtal) simvastatin 10 mg tab(s) (ZOCOR) aspirin 81 mg chewable tab(s) cholecalciferol 5,000 Units tab(s) (VITAMIN D3) NIFEdipine XL 30 mg tab(s) (ADALAT CC) oxyCODONE-acetaminophen 5-325 mg 1-2 tablet (PERCOCET) clopidogrel 75 mg tab(s) (PLAVIX) morphine 1 mg injection Problem List: Bipolar affective [F31.9] Carotid artery disease (HCC) [I77.9] PAD (peripheral artery disease) [I73.9] Postoperative pain [G89.18] Arterial occlusion, lower extremity (HCC) [I70.209] Bipolar disorder (HCC) [F31.9] Hyperlipidemia [E78.5] Neuropathic pain [M79.2] AISSATOU (obstructive sleep apnea) [G47.33] Smoker [F17.200] Thrombus [I82.90] Toe cyanosis [R23.0] Allergies: Horizant [Gabapentin Enacarbil] Wellbutrin [Bupropion Hcl] Date Verified: 11/11/17 Lab Values Lab Value Units Date High Low POTA* 3.9 mmol/L 11/11/2017 5.0 3.5 CHRISTEL* 39.3 % 11/11/2017 46.0 36.0 Progress Notes (FV 5PAV): Yuri Ames PA-C 11/10/2017 2:55 PM Signed ED INTAKE NOTE Patient Name: Neil Mendenhall Service Date: 11/10/17 BRIEF HPI: 52 y/o female present with left leg pain. recentla dmitted 10/21 with left leg ischemia, underwent thrombolysis with [facility] of flow. Worse pain x 2 weeeks. BRIEF EXAM: Awake and Alert TEAGUE Left toes cool with abnormal cap refill, 2nd left toe appears cyanotic, no palpable pulse in left foot INTAKE WORKUP: Roomed immediately concern for ischemic foot SIGNATURE: KELVIN Rao RN, RN 11/10/2017 2:54 PM Signed Bed: 17-ED Expected date: Expected time: Means of arrival: Comments: Triage Vivian Moon RN, RN 11/10/2017 3:08 PM Signed Patient presents with discoloration and pain to toes on left foot. States was admitted on 10/22 and had angiogram, on 10/23 had catheter placed in LLE with stent. States having pain and discoloration since procedure but has gradually been increasing. Unable to detect pulses without doppler. Redness noted to foot, gradually changes to white into the base of toes and then tips of the toes red/black in color. Drainage noted to second toe Swapnil Salcedo DO, 11/11/2017 10:44 AM Signed ED Provider Note Patient Name: Neil Mendenhall SERVICE DATE: 11/10/17 History Patient presents with: Pain (foot): black/red toes. pulse not detected in triage. cap refill >3 seconds. ischemic LLE, with recent surgery HPI Ms. Neil Mendenhall is a 52 year old female with a history of PAD s/p bilateral SFA interventions and chronic smoker (quit one month ago) who presents with left foot pain. Patient has had multiple interventions to LLE including baloon angioplasties of the left SFA x 3 and lysis in 2013 for ALI and RSFA angioplasty x 1 (2011). Recently admitted on 10/21/2017 for left leg ischemic pain due to left femoral artery occlusion for which she underwent thrombolysis with [facility] of flow. States left foot pain has been getting worse for 2 weeks. Today, her left toes were cool to the touch and her left 2nd toe appeared cyanotic. No palpable pulses in left foot. Social History: Smoked about 1/3 ppd for > 30 years. Quit one month ago. PAST MEDICAL HISTORY Diagnosis Date - Carotid artery disease (HCC) PAST SURGICAL HISTORY Procedure Laterality Date - ANGIO TRANSLUM BALL ANGIO ANGELO 2008 [id number] No family history on file. Social History Social History Main Topics - Smoking status: Former Smoker Packs/day: 0.50 Years: 25.00 Types: Cigarettes Quit date: 09/01/2009 - Smokeless tobacco: Never Used Comment: currently using electronic cigarette - Alcohol use No - Drug use: Not on file - Sexual activity: Not on file ALLERGIES Allergen Reactions - Horizant [Gabapenti* Mental Status Change - Wellbutrin [Bupropi* Other: See Comments Took med on Wednesday Woke up 3 days later in hospital Review of Systems Constitutional: Negative for fatigue and fever. Respiratory: Negative for cough, shortness of breath and wheezing. Cardiovascular: Negative for chest pain and palpitations. Gastrointestinal: Negative for abdominal pain, diarrhea and vomiting. Musculoskeletal: Left foot pain Skin: Left toes cool to touch, change in color Neurological: Negative for dizziness, weakness, numbness and headaches. Physical Exam BP 154/77 Pulse 80 Temp (Src) 99 (Oral) Resp 15 Ht 5' 6 (1.68m) Wt 164 lb (74.4kg) SpO2 98% BMI 26.48 kg/(m2). Physical Exam Constitutional: She appears well-developed and well-nourished. She appears distressed. HENT: Head: Normocephalic and atraumatic. Cardiovascular: Normal rate, regular rhythm and normal heart sounds. No murmur heard. Pulmonary/Chest: Effort normal. No respiratory distress. She has wheezes. She has no rales. Diffuse expiratory wheezing Abdominal: Soft. Bowel sounds are normal. She exhibits no distension. There is no tenderness. Musculoskeletal: Left dorsalis pedis (DP) and posterior tibial (PT) pulses are not palpable. Left DP and PT pulses were found on doppler. Right DP and PT on doppler. Able to move left foot and toes. Sensation intact. Palpable femoral pulses. Popliteal pulses found on doppler. Skin: Left toes cool to touch with mottled skin. Left second toe is cyanotic with blue-blackish color. Diagnostic Testing ED Labs Ordered and Reviewed COMPREHENSIVE METABOLIC PANEL (AK,AV,EU,FV,HL,JILLIAN,MM,SP) - Abnormal; Notable for the following: Result Value Ref Range Glucose 102 (*) 65 - 100 mg/dL CO2 22 (*) 23 - 32 mmol/L All other components within normal limits CBC + PLT (AK,AV,EU,FV,HL,JILLIAN,MM,SP) - Abnormal; Notable for the following: Platelet Count 579 (*) 150 - 400 k/uL All other components within normal limits PTT, ANTICOAGULANT THERAPY (AV,EU,FV,HL,JILLIAN,MM,SP) PROTHROMBIN TIME / PT (AK,AV,EU,FV,HL,JILLIAN,MM,SP) Procedures Medical Decision Making / ED Course ED Course Others' Documentation Comment By Time EKG Review/Interpretation: The patient's EKG was reviewed and demonstrated a sinus bradycardia at 56 beats per minute, normal axis and QRS complex normal, normal KY and QT intervals and ST segment normal, reviewed and interpreted by myself No additional acute changes are noted. Electronically verified by DO Swapnil Malin DO 11/10 2980 Vascular surgery was consulted. Patient was started on a low dose heparin drip. Given morphine 4 mg IV with some improvement in pain. Labs: - CBC showed thrombocytosis with platelets 579. No anemia or leukocytosis. - Coagulation studies showed PT 9.8, PTT 24.9, and INR 0.9 - CMP is unremarkable Encounter Diagnosis ICD-10-CM 1. Ischemic pain of foot, left M79.672 I99.9 2. PAD (peripheral artery disease) I73.9 3. Thrombocytosis (HCC) D47.3 Plan The Patient was ADMITTED TO: Regular nursing floor. Admit to observation. Admitted under Vascular Surgery attending, Dr. Matheus Baig. Condition at time of disposition: stable SIGNATURE: Nicole Mendez MD, PGY 3 Family Medicine Nicole Mendez 11/10/17 3313 Attending Note I evaluated the patient and personally participated in the mcadams components. I agree with the resident's findings and plan as documented and have discussed the case and management of the patient's care with the resident. 52 yo female with PAD, recent revascularization procedure on left leg, presents with days of worsening pain in her left foot and now discoloration of multiple toes on left foot. On exam cannot doppler pulses (DP and PT) on left foot. She has ischemic appearing toes to left foot, cool to touch. She was started on IV heparin and urgent vascular surgery consult obtained. She is admitted to vascular surgery, [facility]. Electronically verified by DO Swapnil Malin DO 11/11/17 1044 Previous Version Vivian Moon RN, RN 11/10/2017 3:22 PM Signed Patient requesting pain medication, dr Mendez aware Shilpa Sorenson, SARAH, RN 11/10/2017 3:45 PM Signed Received report. Assumed care of pt. sales and marketing vice president at the bedside and was able to hear pulses in the bilateral feet using a doppler. Medicated for pain. Heparin infusing without difficulty. Vivian Moon RN, RN 11/10/2017 3:45 PM Signed Vascular at bedside to assess patient, pulses doppler ed. Ingris Mcpherson MD, MD 11/10/2017 5:21 PM Addendum [facility]ULAR [facility] INITIAL CONSULT Service Date: 11/10/2017 Admit Date: 11/10/2017 Service Time: 4:00PM LOS: 0 Requesting Provider: Dr. Salcedo Vascular Physician: Angel Baig MD Subjective Chief Complaint: Left toe pain and discoloration HPI: Neil Mendenhall is a 52 year old White female referred by Dr. Salcedo for an opinion regarding management of left toe pain and discoloration. Location: left toes, worst 2nd AND 4th Quality: worsening Severity: moderate to severe Duration: 2 weeks Context: with contact, e.g. While walking Of note, recently admitted for LLE ischemia. Underwent lysis and then stenting of L fem-popliteal artery as well as angioplasty of distal PT. She was discharged on ASA and plavix, but started having left toe pain a few days following discharge. She presents today because of worsening pain and discoloration of the left 2nd and 4th toes a well as ankle. PAST MEDICAL HISTORY Diagnosis Date - Carotid artery disease (HCC) PAST SURGICAL HISTORY Procedure Laterality Date - ANGIO TRANSLUM BALL ANGIO ANGELO 2008 [id number] No family history on file. Social History Substance Use Topics - Smoking status: Former Smoker Packs/day: 0.50 Years: 25.00 Types: Cigarettes Quit date: 09/01/2009 - Smokeless tobacco: Never Used Comment: currently using electronic cigarette - Alcohol use No (Not in a hospital admission) Current hospital medications: heparin iv infusion (LOW DOSE ACS/NOMOGRAM) 25,000 units in NaCl 0.45% 250 mL PREMIX 0-3,000 Units/hr INTRAVENOUS CONTINUOUS heparin RATE CHANGE bolus 1,000-4,000 Units for subtherapeutic aptt results 1,000-4,000 Units INTRAVENOUS PRN heparin nomogram - NO INITIAL BOLUS OTHER ONCE (heparin bolus) ALLERGIES Allergen Reactions - Horizant [Gabapenti* Mental Status Change - Wellbutrin [Bupropi* Other: See Comments Took med on Wednesday Woke up 3 days later in hospital COMPLETE REVIEW OF SYSTEMS CONSTITUTIONAL: No weight loss, malaise or fevers. HEENT: Negative for frequent or significant headaches, No changes in hearing or vision, no nose bleeds or other nasal problems. RESPIRATORY: Negative for cough, wheezing, or shortness of breath CARDIOVASCULAR: Negative for chest pain, leg swelling or palpitations GI: Negative for abdominal discomfort, blood in stools or black stools or change in bowel habits. : No history of dysuria, frequency, or incontinence and No difficulty urination, nocturia >1 times per night or hematuria. MUSCULOSKELETAL: Negative for joint pain or swelling, back pain or muscle pain. ENDOCRINE: Negative for cold or heat intolerance, polyuria, polydipsia and goiter HEMATOLOGIC/LYMPHATIC: Negative for prolonged bleeding, bruising easily or swollen nodes. NEUROLOGIC: No history or headaches, syncope, paralysis, seizures or tremors. INTEGUMENTARY: Negative for lesions, rash, and itching. Objective PHYSICAL EXAM Physical Exam Performed Patient Vitals for the past 24 hrs: BP Temp Temp src Pulse Resp SpO2 Height Weight 11/10/17 1607 154/77 - - 80 15 98 % - - 11/10/17 1536 161/109 - - 76 18 100 % - - 11/10/17 1454 137/97 37.2 ?C (99 ?F) Oral 88 16 98 % 167.6 cm (5' 6) 74.4 kg (164 lb) CONSTITUTIONAL: Well developed and Well nourished NEUROLOGIC/PSYCHIATRIC: Oriented to time, place AND person HEENT: PERRLA LUNGS: Clear HEART: Regular rate AND rhythm ABDOMEN: Soft and Non-tender INTEGUMENTARY: Left 2nd and 4th toes cyanotic, sensitive to touch, motor function intact SURGICAL SITES: None MUSCULOSKELETAL: No deformities Pulses/Signals: Carotid Brachial Radial Ulnar Femoral Popliteal Dorsalis Pedis Posterior Tibial Peroneal Right Palpable +2 Palpable +2 Palpable +2 Palpable +2 Palpable +2 Biphasic Signal Biphasic Triphasic Signal Biphasic Signal Left Palpable +2 Palpable +2 Palpable +2 Palpable +2 Palpable +2 Biphasic Signal Biphasic Signal Biphasic Signal Biphasic Signal Does the patient have critical limb ischemia, rest pain, tissue loss or gangrene?: Yes W: Wound/ Clinical Category SVS Grades for rest pain and wounds tissue loss (ulcers and gangrene) 0 (ischemia rest pain) no ulcer, no gangrene I: Ischemia Hemodynamics/perfusion: Measure TP or TcpO2 if ARELI incompressible (> 1.3) Ultrasound pending FI: Foot Infection SVS Grades: 0 (none, uninfected) none of the following present: local swelling or induration, erythemia > 0.5 to </- 2cm around ulcer, local tenderness or pain,local warmth, purulent discharge WIFI: Wound: 0 Ischemia: pending Foot Infection: 0 DATA: Laboratory: Recent Labs 11/10/17 1515 WBC 8.82 HB 13.0 HCT 40.1 PLT 579* Recent Labs 11/10/17 1515 NA 140 K 4.1 BUN 15 CREAT 0.73 GLUC 102* Recent Labs 11/10/17 1515 APTT 24.9 INR 0.9 Radiology: Arterial US to be ordered Impression/Recommendations Impression: 52 yo F w h/o bipolar disorder, PVD s/p multiple angio procedures, bilateral lower extremity stents who presents following procedures in early October. Likely microemboli or restenosis while dual anti-platelet therapy. Plan: Admit for observation Continue heparin gtt NPO, IVF Vascular US tomorrow morning including PT all the way down to the foot May require intervention pending imaging results SIGNATURE: Ingris Mcpherson MD PATIENT NAME: Neil Mendenhall DATE: November 10, 2017 TIME: 4:54 PM PAGER/CONTACT #: [phone] Previous Version Shilpa Sorenson RN, RN 11/10/2017 6:31 PM Signed Pt reports pain increasing. Pt provided with pain control per order. Pt repositioned for comfort in bed. Warm blankets applied. Call light is within reach. Vivian Moon RN, RN 11/10/2017 7:30 PM Signed [phone], Laney, sister Patient is aware of admission and bed assignment Rosemary Chawla RN, RN 11/11/2017 5:43 AM Addendum Nursing Progress Note Patient Name: Neil Mendenhall Patient Location: [place] [address] [address]* Transfer Note: Patient transferred into room/unit [address] [place], [place] [address]-1 in stable condition. Actions taken: No futher actions taken at this time. Will continue to monitor and check with patient. Patient alert and oriented, c/o 8/10 left leg pain, medicated with pain meds as ordered, on heparin drip at 900 units/hr, posterior tibial pulse present on doppler warm to touch and looks cyanotic, safety measures in place, call de guzman within reach, will continue to monitor. This note was completed by: Rosemary Chawla RN Previous Version Cyndy Espinosa MD, MD 11/11/2017 7:46 AM Addendum [facility] PROGRESS NOTE Service Date: 11/11/2017Admit Date: 11/10/2017Service Time: 7:34 AM LOS: 0 day(s) Primary Service: Vascular Surgery Vascular Physician: Angel Baig MD Interval Events/Issues: No acute issues overnight. Pain over ankle improving, however pain in toes are persistently painful. Pedal signals not dopplerable this AM. Foot feels cooler. Motor and sensory intact. Subjective Current hospital medications: heparin iv infusion (LOW DOSE ACS/NOMOGRAM) 25,000 units in NaCl 0.45% 250 mL PREMIX 0-3,000 Units/hr INTRAVENOUS CONTINUOUS heparin RATE CHANGE bolus 1,000-4,000 Units for subtherapeutic aptt results 1,000-4,000 Units INTRAVENOUS PRN ARIPiprazole 20 mg tab(s) (ABILIFY) 20 mg ORAL DAILY lamoTRIgine 200 mg tab(s) (LaMICtal) 200 mg ORAL DAILY simvastatin 10 mg tab(s) (ZOCOR) 10 mg ORAL DAILY aspirin 81 mg chewable tab(s) 81 mg ORAL DAILY cholecalciferol 5,000 Units tab(s) (VITAMIN D3) 5,000 Units ORAL DAILY NIFEdipine XL 30 mg tab(s) (ADALAT CC) 30 mg ORAL DAILY oxyCODONE-acetaminophen 5-325 mg 1-2 tablet (PERCOCET) 1-2 tablet ORAL q 6 H PRN clopidogrel 75 mg tab(s) (PLAVIX) 75 mg ORAL DAILY morphine 1 mg injection 1 mg INTRAVENOUS q 4 H PRN ALLERGIES Allergen Reactions - Horizant [Gabapenti* Mental Status Change - Wellbutrin [Bupropi* Other: See Comments Took med on Wednesday Woke up 3 days later in hospital Objective PHYSICAL EXAM: Patient Vitals for the past 24 hrs: BP Temp Temp src Pulse Resp SpO2 Height Weight 11/11/17 0351 152/70 37.1 ?C (98.7 ?F) Oral 76 18 96 % - - 11/10/173 155/87 36.5 ?C (97.7 ?F) Oral 77 20 98 % 167.6 cm (5' 6) 75.6 kg (166 lb 11.2 oz) 11/10/17 1931 165/87 - - 78 16 99 % - - 11/10/17 1809 172/89 - - 75 16 97 % - - 11/10/17 1750 180/86 - - 70 15 98 % - - 11/10/17 1607 154/77 - - 80 15 98 % - - 11/10/17 1536 161/109 - - 76 18 100 % - - 11/10/17 1454 137/97 37.2 ?C (99 ?F) Oral 88 16 98 % 167.6 cm (5' 6) 74.4 kg (164 lb) Intake/Output Summary (Last 24 hours) at 11/11/17 0734 Last data filed at 11/11/17 0600 Gross per 24 hour Intake 400 ml Output 502 ml Net -102 ml CONSTITUTIONAL: Well developed and No acute distress NEUROLOGIC/PSYCHIATRIC: Oriented to time, place AND person and Alert HEENT: Fair dentition LUNGS: Respiratory effort: normal on RA HEART: Regular rate AND rhythm ABDOMEN: Soft INTEGUMENTARY: Wound - No SURGICAL SITES: None MUSCULOSKELETAL: No deformities Pulses/Signals: Dorsalis Pedis Right: Triphasic Signal - Left: No Signal Posterior Tibial Right: Triphasic Signal - Left: No Signal DATA: Laboratory: Recent Labs 11/11/17 04211/10/17 1515 WBC 7.55 8.82 HB 12.4 13.0 HCT 39.3 40.1 PLT 561* 579* Recent Labs 11/11/1742811/10/17 1515 NA 139 140 K 3.9 4.1 BUN 15 15 CREAT 0.76 0.73 GLUC 101* 102* MG 2.3 -- Recent Labs 11/11/1742811/10/17211911/10/17 1515 APTT 36.2* 27.9 24.9 INR -- -- 0.9 Assessment/Plan Impression: This is a 52 year old female who is HD# 1 for left foot pain with discoloration of 2nd and 4th toe Plan: - STAT Arterial duplex this AM - Keep NPO, IVF prehydration 100cc/h - Continue hep gtt - Continue aspirin/plavix - PRN pain control - Possible LE angiography with intervention today - Plans discussed with Dr. Baig No problems updated. SIGNATURE: Cyndy Espinosa MD PATIENT NAME: Neil Mendenhall DATE: November 11, 2017 TIME: 7:34 AM PAGER/CONTACT #: [phone] Previous Version Troy Mandujano MD 11/11/2017 11:42 AM Incomplete HISTORY AND PHYSICAL EXAMINATION SERVICE DATE: 11/11/2017 SERVICE TIME: 11:33 AM PRIMARY CARE PHYSICIAN: Kathryn Galvan MD ASSESSMENT AND PLAN Neil Mendenhall is a 52 year old female , chronic smoker with history of PVD s/p multiple interventions to LLE including baloon angioplasties of the left SFA x 3 and lysis in 2013 for ALI. RSFA angioplasty x 1 (2011) and Aortobifem angiogram, Right Fem access to Left PT, Lysis on 11/21/17 who was admitted on 11/10/2017 with L toe pain and discoloration while on dual anti-platelet therapy. Arterial US showed Occluded left proimal to distal SFA, left SFA stent and left MANISHA distal at ankle today. Now s/p Indication for ICU admission: close HD monitoring and vascular checks in setting of procedure above. Neuro: - Analgesia: Tylenol, Marzena - Anxiety/Sedation/Itching: Benadryl x1, Hydroxyzine. Abilify - h/o Seizures on lamictal ? Cardiovascular: - Acute LLE on hep, TPA - HTN Nifedipine - CAD: Statin, ASA81 - ICU monitoring - IV Access: pIV ? Respiratory: - Incentive spirometry ? GI: - Nutrition/Diet: CLD. NPO @MN (Lysis check Tomorrow). ? Renal: (Baseline sCr: 0.74) - Urine output ok. sCr 0.74. Humphries indicated. - IVF NS at 100 - Electrolytes replete Ca, K >4, Phos >3, Mag >2. ? Heme/ID: - Hemoglobin ok. No evidence of bleeding. Transfuse for hgb < 7 or if symptomatic - WBC trend - Abx: none - DVT Prophylaxis: IPCs, ? Endo: - Glucose WNL. ? Wound Care: RLE imobile. - catheter/wire dressing in place ? MSK - Activity Level: Bedrest ? Dispo: SICU Plan to be discussed with Dr. Field. SUBJECTIVE CHIEF COMPLAINT: HPI: Neil Mendenhall is a 52 year old female with history of who is admitted to the SICU on November 11, 2017 for evaluation/treatment of . This patient . . PAST MEDICAL HISTORY: PAST MEDICAL HISTORY Diagnosis Date - Carotid artery disease (HCC) PAST SURGICAL HISTORY: PAST SURGICAL HISTORY Procedure Laterality Date - ANGIO TRANSLUM BALL ANGIO ANGELO 2008 [id number] FAMILY HISTORY: No family history on file. SOCIAL HISTORY: Social History Substance Use Topics - Smoking status: Former Smoker Packs/day: 0.50 Years: 25.00 Types: Cigarettes Quit date: 09/01/2009 - Smokeless tobacco: Never Used Comment: currently using electronic cigarette - Alcohol use No MEDICATIONS: Prior to Admission Medications Prescriptions Prior to Admission: clopidogrel (PLAVIX) 75 mg tablet Take 1 tablet by mouth once daily. Disp: 30 tablet Rfl: 2 11/09/2017 at Unknown time oxyCODONE-acetaminophen (PERCOCET) 5-325 mg tablet Take 1- 2 tablets by mouth every 4 hours as needed for Pain. Disp: 120 tablet Rfl: 0 07/23/2016 at Unknown time nitroglycerin (NITRO-BID) 2 % ointment Apply 0.5 g as directed twice daily. Apply in the morning and remove at night Disp: 30 g Rfl: 0 Unknown at Unknown time NIFEdipine ER (PROCARDIA XL) 30 mg 24 hr tablet Take 1 tablet by mouth once daily. Disp: 30 tablet Rfl: 3 10/21/2017 at Unknown time Cholecalciferol, Vitamin D3, 5,000 unit cap Take 5,000 Units by mouth once daily. Disp: Rfl: 10/20/2017 at Unknown time pregabalin (LYRICA) 225 mg capsule Take 225 mg by mouth twice daily. Disp: Rfl: Unknown at Unknown time aspirin 81 mg chewable tablet Take 1 tablet by mouth once daily. Disp: Rfl: 0 10/21/2017 at Unknown time pravastatin (PRAVACHOL) 20 mg tablet Take 20 mg by mouth once daily. Disp: Rfl: 10/20/2017 at Unknown time lamoTRIgine (LAMICTAL) 200 mg tablet Take 200 mg by mouth once daily. Disp: Rfl: 10/21/2017 at Unknown time aripiprazole(ABILIFY 20 MG TAB) Take one(1) tablet daily. Disp: Rfl: 0 10/21/2017 at Unknown time CURRENT ALLERGIES: ALLERGIES Allergen Reactions - Horizant [Gabapenti* Mental Status Change - Wellbutrin [Bupropi* Other: See Comments Took med on Wednesday Woke up 3 days later in hospital COMPLETE REVIEW OF SYSTEMS: Patient arrives in state and is unable to complete full review of systems at this time. Physical Exam: BP 152/70 Pulse 76 Temp 37.1 ?C (98.7 ?F) (Oral) Resp 18 Ht 167.6 cm (5' 6) Wt 75.6 kg (166 lb 11.2 oz) SpO2 96% BMI 26.91 kg/m2 General appearance: uncomfortable appearing, alert, in no mild distress, well-hydrated, well nourished Neuro: Awake, alert, Sensation grossly intact. Skin: skin color, texture, turgor normal, no suspicious rashes or lesions HEENT: Normocephalic, EOMI, mucosa moist Lungs: clear to auscultation, no wheezing or rhonchi Heart: RRR without murmur, gallop, or rubs. Abdomen: Abdomen soft, non-tender, non-distended. Lines/Tubes/Drains: Lysis catheter/dressing in place in right groin Labs: CBC, BMP, MG, PHOS Recent Labs 11/11/17 0429 11/10/17 1515 10/24/17 0433 10/23/17 1121 10/23/17 0324 04/21/14 1220 04/21/14 0400 04/20/14 2040 WBC 7.55 8.82 7.90 10.17 < > -- < > 10.13 7.92 11.25* HB 12.4 13.0 11.6 12.2 < > -- < > 10.9* 10.9* 11.7 HCT 39.3 40.1 34.5* 37.1 < > -- < > 33.3* 33.4* 33.8* PLT 561* 579* 284 271 < > -- < > 292 313 291 NA 139 140 142 -- -- 139 < > 137 140 139 K 3.9 4.1 3.7 -- -- 3.7 < > 4.1 3.8 3.9 CHLOR 105 103 103 -- -- 103 < > 105 107 106 CO2 20* 22* 23 -- -- 21* < > 23 23 21* BUN 15 15 8 -- -- 6* < > 7* 7* 9 CREAT 0.76 0.73 0.72 -- -- 0.66* < > 0.81 0.87 0.96 GLUC 101* 102* 97 -- -- 87 < > 97 146* 110* CA 8.9 9.6 8.3* -- -- 8.3* < > 8.3* 8.4* 8.8 MG 2.3 -- -- -- -- 2.1 -- 2.1 2.2 2.1 P -- -- -- -- -- 3.1 -- 3.1 3.5 3.1 < > = values in this interval not displayed. Liver Function, Amylase, AND Lipase Recent Labs 11/10/17 1515 04/20/14 2040 01/15/11 1712 TPROT 8.3 7.0 7.6 ALB 4.4 3.6 4.48 ALT 21 26 -- AST 11 16 -- ALKPHOS 70 77 -- TBILI 0.2 0.3 -- Coags Recent Labs 11/11/17 0429 11/10/17 2120 11/10/17 1515 10/23/17 2320 10/23/17 0551 10/22/17 2229 10/22/17 1056 APTT 36.2* 27.9 24.9 27.8 36.2* 39.9* 98.5* INR -- -- 0.9 -- 1.3 1.2 1.0 Current Medications: Current hospital medications: NaCl 0.9% iv infusion 100 mL/hr INTRAVENOUS CONTINUOUS alteplase 10 mg in NaCl 0.9% 250 mL (ACTIVASE) 0.5-1 mg/hr INTRAVENOUS CONTINUOUS alteplase 10 mg in NaCl 0.9% 250 mL (ACTIVASE) 0.5-1 mg/hr INTRAVENOUS CONTINUOUS heparin iv infusion (LOW DOSE ACS/NOMOGRAM) 25,000 units in NaCl 0.45% 250 mL PREMIX 0-3,000 Units/hr INTRAVENOUS CONTINUOUS heparin RATE CHANGE bolus 1,000-4,000 Units for subtherapeutic aptt results 1,000-4,000 Units INTRAVENOUS PRN ARIPiprazole 20 mg tab(s) (ABILIFY) 20 mg ORAL DAILY lamoTRIgine 200 mg tab(s) (LaMICtal) 200 mg ORAL DAILY simvastatin 10 mg tab(s) (ZOCOR) 10 mg ORAL DAILY aspirin 81 mg chewable tab(s) 81 mg ORAL DAILY cholecalciferol 5,000 Units tab(s) (VITAMIN D3) 5,000 Units ORAL DAILY NIFEdipine XL 30 mg tab(s) (ADALAT CC) 30 mg ORAL DAILY oxyCODONE-acetaminophen 5-325 mg 1-2 tablet (PERCOCET) 1-2 tablet ORAL q 6 H PRN clopidogrel 75 mg tab(s) (PLAVIX) 75 mg ORAL DAILY morphine 1 mg injection 1 mg INTRAVENOUS q 4 H PRN Signature: Troy Mandujano MD - pager [phone] (On weekends and weekdays after 6 PM please contact stallion keeper resident) Date: November 11, 2017 Time: 11:33 AM Patient Name: Neil Mendenhall Cyndy Espinosa MD, MD 11/11/2017 12:36 PM Signed BRIEF OPERATIVE / PROCEDURE NOTE LOG ID: [id number] Surgery/Procedure Date: 11/11/2017 Incision/Procedure Start Time: 10:53 Incision Close/Procedure End Time: 12:20 Surgeon(s)/Proceduralist(s) and Swimmer(s): Surgeon(s) and Role: * Flo Aragon - Primary No Additional Staff Procedure(s): BENITA Angio: Access: Right femoral artery. Sheath pulled, pressure held Closure: Starclose closure device Contrast: 120 Fluorotime: 23:19 min, 126 mGy Anesthesia: Procedural Sedation ASA Class: ASA Class:: II Findings:Left PT occlusion, left SFA to popliteal occlusion Pulses: LLE: PT dopplerable, DP no signal RLE: PT/DP biphasic signal Medications: Antiplatelet: Yes - Medication: Aspirin and plavix Dose: 81mg OD and 75 mg OD Anticoagulation: Yes Statin: Yes - Medication: Simvastatin Dose: 10mg OD Beta Juan: No - Reason: Not on beta juan preop Estimated Blood Loss: Minimal Specimens: None Complications: None Pre-Op/Pre-Procedure Diagnosis: Critical limb ischemia Post-Op/Post-Procedure Diagnosis: Critical limb ischemia SIGNATURE: Cyndy Espinosa MD PATIENT NAME: Neil Mendenhall DATE: November 11, 2017 TIME: 12:31 PM PAGER/CONTACT #: [phone] MIO Sanchez AA 11/11/2017 12:55 PM [facility] ANESTHESIOLOGY DAY OF SURGERY NOTE PATIENT NAME: Neil Mendenhall : 1965 Procedure(s) (LRB): BYPASS FEMORAL-POPLITEAL OR FEMORAL-TIBIAL, POSTERIOR TIBIAL, PERONEAL ARTERY, OR OTHER DISTAL VESSELS, RE-DO (Left) Surgeon(s): Flo Aragon Estimated body mass index is 26.91 kg/(m2) as calculated from the following: Height as of this encounter: 167.6 cm (5' 6). Weight as of this encounter: 75.6 kg (166 lb 11.2 oz). ASA Class: 3E Adequate NPO status: Yes Allergies: ALLERGIES Allergen Reactions - Horizant [Gabapenti* Mental Status Change - Wellbutrin [Bupropi* Other: See Comments Took med on Wednesday Woke up 3 days later in hospital Airway Assessment: MP 1; Neck ROM: Full ROM without neurologic symptoms; Airway Evaluation: No significant abnormalities Dentition: Edentulous Symptoms of Sleep Apnea: Formally diagnosed but non-compliant with therapy Most recent lab results: Hemoglobin 12.4 11/11/2017 Hematocrit 39.3 11/11/2017 Potassium 3.9 11/11/2017 Platelet Count 561 11/11/2017 PT Sec 9.8 11/10/2017 APTT 36.2 11/11/2017 PT INR 0.9 11/10/2017 Creatinine 0.76 11/11/2017 HCG not indicated Vitals: 11/10/17 1809 11/10/17 1931 11/10/17 2033 11/11/17 0351 BP: 172/89 165/87 155/87 152/70 Pulse: 75 78 77 76 Resp: 16 16 20 18 Temp: 36.5 ?C (97.7 ?F) 37.1 ?C (98.7 ?F) TempSrc: Oral Oral SpO2: 97% 99% 98% 96% Weight: 75.6 kg (166 lb 11.2 oz) Height: 167.6 cm (5' 6) Anesthesia History: Previous Anesthesia: No history of adverse event Family history of anesthetic problems: None Physical Exam and other tests: Lungs: Lungs clear to auscultation. Good diaphragmatic excursion. CHEST XRAY: Not indicated HEART EXAM:Regular rate and rhythm CARDIAC TESTS: 05-09-10 CONCLUSIONS Suboptimal apical acoustic windows. 1. Normal LV size and systolic function. EF=65%. Normal diastolic function. 2. Normal RV size and systolic function. 3. No signifcant valvular abnormalities. 4. Normal LA volume index=24 ml/m2. Normal RA size. [id number] Diagnosis:SINUS BRADYCARDIA Otherwise Normal ECG CAD HX: Pt denies HI and CAD Other Medical Problems/ Important Considerations: Pt can walk 2-3 flights of stairs and 4-5 block without SOB, CP, fainting, lightheadedness. Denies chest pain and SOB with exertion. GERD well controlled with no positional symptoms. Chronic Beta Juan medication administered within 24 hours: not indicated Anesthetic risks, benefits, alternatives, personnel and consent discussed: Yes Patient agrees to proceed: Yes Blood Products: Will accept Blood/Blood Products Anesthetic Plan: General ETT; Standard ASA Monitors and Invasive Hemodynamic Monitoring Arterial line Pain Management Plan: Parenteral or Oral [facility] Chart Review ACTIVE PROBLEM LIST Bipolar affective Carotid Artery Disease (Hcc) PAD (peripheral artery disease) Postoperative Pain Arterial Occlusion, Lower Extremity (Hcc) Bipolar disorder (HCC) Hyperlipidemia Neuropathic Pain Aissatou (Obstructive Sleep Apnea) Smoker Thrombus Toe Cyanosis PAST MEDICAL HISTORY Diagnosis Date - Carotid artery disease (HCC) PAST SURGICAL HISTORY Procedure Laterality Date - ANGIO TRANSLUM BALL ANGIO ANGELO 2008 [id number] No family history on file. Social History: Social History Substance Use Topics - Smoking status: Former Smoker Packs/day: 0.50 Years: 25.00 Types: Cigarettes Quit date: 09/01/2009 - Smokeless tobacco: Never Used Comment: currently using electronic cigarette - Alcohol use No No current facility-administered medications on file prior to encounter. Current Outpatient Prescriptions on File Prior to Encounter: clopidogrel (PLAVIX) 75 mg tablet Take 1 tablet by mouth once daily. oxyCODONE-acetaminophen (PERCOCET) 5-325 mg tablet Take 1- 2 tablets by mouth every 4 hours as needed for Pain. nitroglycerin (NITRO-BID) 2 % ointment Apply 0.5 g as directed twice daily. Apply in the morning and remove at night NIFEdipine ER (PROCARDIA XL) 30 mg 24 hr tablet Take 1 tablet by mouth once daily. Cholecalciferol, Vitamin D3, 5,000 unit cap Take 5,000 Units by mouth once daily. pregabalin (LYRICA) 225 mg capsule Take 225 mg by mouth twice daily. aspirin 81 mg chewable tablet Take 1 tablet by mouth once daily. pravastatin (PRAVACHOL) 20 mg tablet Take 20 mg by mouth once daily. lamoTRIgine (LAMICTAL) 200 mg tablet Take 200 mg by mouth once daily. aripiprazole(ABILIFY 20 MG TAB) Take one(1) tablet daily. Inpatient medications reviewed in [facility]. I have interviewed and examined the patient. I have reviewed the medical record and/or the pre-anesthesia evaluation, pertinent labs, and test results. This contains updated information obtained within 48 hours of Surgery/Procedure. SIGNATURE: MIO Sanchez DATE: November 11, 2017 TIME: 12:50 PM Progress Notes (FV PK2A): Mohamud Cash PA-C 10/21/2017 5:24 PM Signed ED INTAKE NOTE Patient Name: Neil Mendenhall Service Date: 10/21/17 BRIEF HPI: Pt had outpatient arterial ultrasound LLE today showing the following: Compared to prior study of 02/01/2015, left superficial femoral artery is occluded on today's exam. Hx of bilateral PAD s/p previous angioplasty, currently on coumadin. ? BRIEF EXAM: Awake and Alert TEAGUE Ambulatory on triage INTAKE WORKUP: Pt roomed SIGNATURE: KELVIN Pandey 10/22/2017 8:10 AM Addendum [facility] INITIAL CONSULT Service Date: 10/21/2017 Admit Date: 10/21/2017 Service Time: 5:49 PM LOS: 0 Requesting Provider: ED Staff Vascular Physician: Benita Torres MD Subjective Chief Complaint: Left Lower leg pain HPI: Neil Mendenhall is a 52 year old Unavailable female referred by ED staff for an opinion regarding management of left SFA thrombosis . Location: left Quality: acute Severity: moderate Duration: 3-4 days Timing: constant Context: at rest Modifying Factors: improves with rest Ms. Mendenhall is a chronic smoker with a complex vascular history s/p multiple interventions on the left leg for acute limb ischemia , multiple baloon angioplasties of the left SFA x 3 and lysis in 2013 for TEJAS . RSFA angioplasty x 1 in 2011 . She presented today with complaints of left lower limb pain more in the toes for the past 3-4 days with gradual discoloration of the toes over the past few weeks. She continues to smoke. She is on 3mg of coumadin and 81mg of aspirin . PAST MEDICAL HISTORY Diagnosis Date - Carotid artery disease (HCC) PAST SURGICAL HISTORY Procedure Laterality Date - ANGIO TRANSLUM BALL ANGIO ANGELO 2008 [id number] No family history on file. Social History Substance Use Topics - Smoking status: Former Smoker Packs/day: 0.50 Years: 25.00 Types: Cigarettes Quit date: 09/01/2009 - Smokeless tobacco: Never Used Comment: currently using electronic cigarette - Alcohol use No (Not in a hospital admission) Current hospital medications: NaCl 0.45% iv infusion 100 mL/hr INTRAVENOUS CONTINUOUS ALLERGIES Allergen Reactions - Horizant [Gabapenti* Mental Status Change - Wellbutrin [Bupropi* Other: See Comments Took med on Wednesday Woke up 3 days later in hospital COMPLETE REVIEW OF SYSTEMS CONSTITUTIONAL: No weight loss, malaise or fevers. HEENT: Negative for frequent or significant headaches, No changes in hearing or vision, no nose bleeds or other nasal problems. RESPIRATORY: Negative for cough, wheezing, or shortness of breath CARDIOVASCULAR: Negative for chest pain, leg swelling or palpitations GI: Negative for abdominal discomfort, blood in stools or black stools or change in bowel habits. : No history of dysuria, frequency, or incontinence and No difficulty urination, nocturia >1 times per night or hematuria. MUSCULOSKELETAL: Negative for joint pain or swelling, back pain or muscle pain. ENDOCRINE: Negative for cold or heat intolerance, polyuria, polydipsia and goiter HEMATOLOGIC/LYMPHATIC: Negative for prolonged bleeding, bruising easily or swollen nodes. NEUROLOGIC: No history or headaches, syncope, paralysis, seizures or tremors. INTEGUMENTARY: Negative for lesions, rash, and itching. Objective PHYSICAL EXAM Physical Exam Performed Patient Vitals for the past 24 hrs: BP Temp Temp src Pulse Resp SpO2 Height Weight 10/21/17 1719 134/66 37 ?C (98.6 ?F) Oral 61 18 98 % 167.6 cm (5' 6) 76.2 kg (168 lb) No intake or output data in the 24 hours ending 10/21/17 1748 CONSTITUTIONAL: Well developed NEUROLOGIC/PSYCHIATRIC: Oriented to time, place AND person HEENT: PERRLA LUNGS: Clear HEART: Regular rate AND rhythm ABDOMEN: Soft and Non-tender INTEGUMENTARY: Wound - No SURGICAL SITES: None MUSCULOSKELETAL: No deformities Bluish discoloration of the left 1st , 2nd and 3rd toe with delayed capillary refill, neuromotor intact , Pulses/Signals: Carotid Brachial Radial Femoral Popliteal Dorsalis Pedis Posterior Tibial Peroneal Right Palpable +2 Palpable +2 Palpable +2 Palpable +2 Palpable +2 Biphasic Signal Palpable +2 Triphasic Signal Left Palpable +2 Palpable +2 Palpable +2 Palpable +2 Palpable +2 Biphasic Signal (faint) Biphasic Signal Triphasic Signal Does the patient have critical limb ischemia, rest pain, tissue loss or gangrene?: Yes W: Wound/ Clinical Category SVS Grades for rest pain and wounds tissue loss (ulcers and gangrene) 0 (ischemia rest pain) no ulcer, no gangrene I: Ischemia Hemodynamics/perfusion: Measure TP or TcpO2 if ARELI incompressible (> 1.3) SVS Grades: >0.8 FI: Foot Infection SVS Grades: 0 (none, uninfected) none of the following present: local swelling or induration, erythemia > 0.5 to </- 2cm around ulcer, local tenderness or pain,local warmth, purulent discharge WIFI: Wound: 0 Ischemia: 0 Foot Infection: 0 DATA: Laboratory: Radiology: I have personally reviewed the following images/data: PVR and Duplex PVR: IMPRESSION Compared to prior study of 05/25/2016, decrease in left ARELI, previously 0.99. ? RIGHT SIDE ? Resting right ankle brachial index: 1.20 ? Normal ankle brachial index at rest in the right leg. ? Right ankle: Normal at rest. ? Right small vessel disease. ? LEFT SIDE ? Resting left ankle brachial index: 0.69 ? Abnormal ankle brachial index at rest diagnostic of peripheral artery disease. ? Left ankle: Moderate disease at rest. ? Left small vessel disease. Duplex: IMPRESSION Compared to prior study of 02/01/2015, left superficial femoral artery is occluded on today's exam. ? LEFT SIDE External iliac artery distal: plaque noted without evidence of hemodynamically significant stenosis . Common femoral artery : plaque noted without evidence of hemodynamically significant stenosis . Profunda femoral artery proximal: patent . Superficial femoral artery proximal to mid: occluded . Reconstitutes via a collateral at distal thigh. Popliteal artery : patent . Tibioperoneal trunk : plaque noted without evidence of hemodynamically significant ?stenosis . Posterior tibial artery : patent . Peroneal artery distal: occluded . Visualized in segments. Anterior tibial artery proximal: occluded . Unable to visualize mid to distal vessel. Impression/Recommendations Impression: 52 year old female with the aforementioned history presents with possible acute limb ischemia , non threatened limb at the time of exam . Plan: - Admit to Dr. Torres - Keep NPO - Heparin drip ACS Standard nomogram - Resume home meds - for diagnostic angiogram tomorrow , possible intervention , possible lysis - Will discuss with Dr. Torres - Seen and examined with Dr. Jo , Senior resident No problems updated. SIGNATURE: Elle Greenberg PATIENT NAME: Neil Mendenhall DATE: October 21, 2017 TIME: 5:48 PM Previous Version Shay Cardenas MD, MD 10/21/2017 7:24 PM Signed ED Provider Note Patient Name: Neil Mendenhall SERVICE DATE: 10/21/17 History Patient presents with: Sent By Md: states had ultrasound done and has superficial venous blockage in left groin area; takes Coumadin and ASA HPI 52-year-old female who has a history of vascular disease who presents for an occlusion of the left too professional femoral arterial artery. She's had increasing left upper leg pain for the past week. Worse over the past 2 days. A throbbing and aching severe pain that feels like her past arterial occlusions. She also states her toes of been blue, the second toe is the most painful. She says I knew I had a blood clot. She is on Coumadin and aspirin. She had an ultrasound done today showing an occlusion. She was instructed by her vascular surgeon to come to the ED. PAST MEDICAL HISTORY Diagnosis Date - Carotid artery disease (HCC) PAST SURGICAL HISTORY Procedure Laterality Date - ANGIO TRANSLUM BALL ANGIO ANGELO 2008 [id number] No family history on file. Social History Social History Main Topics - Smoking status: Former Smoker Packs/day: 0.50 Years: 25.00 Types: Cigarettes Quit date: 09/01/2009 - Smokeless tobacco: Never Used Comment: currently using electronic cigarette - Alcohol use No - Drug use: None - Sexual activity: Not Asked ALLERGIES Allergen Reactions - Horizant [Gabapenti* Mental Status Change - Wellbutrin [Bupropi* Other: See Comments Took med on Wednesday Woke up 3 days later in hospital Review of Systems Constitutional: Negative for chills, fatigue and fever. HENT: Negative for rhinorrhea and sore throat. Eyes: Negative for pain and redness. Respiratory: Negative for cough and shortness of breath. Cardiovascular: Negative for chest pain, palpitations and leg swelling. Gastrointestinal: Negative for abdominal pain, constipation, diarrhea, nausea and vomiting. Genitourinary: Negative for dysuria, frequency and hematuria. Skin: Negative for rash and wound. Allergic/Immunologic: Negative for immunocompromised state. Neurological: Negative for dizziness and headaches. Hematological: Does not bruise/bleed easily. Physical Exam BP 134/66 Pulse 61 Temp (Src) 98.6 (Oral) Resp 18 Ht 5' 6 (1.68m) Wt 168 lb (76.2kg) SpO2 98% BMI 27.13 kg/(m2). Physical Exam Constitutional: She is oriented to person, place, and time. She appears well-developed and well-nourished. No distress. HENT: Head: Normocephalic and atraumatic. Mouth/Throat: Oropharynx is clear and moist. Eyes: Conjunctivae and EOM are normal. Neck: Normal range of motion. Neck supple. No tracheal deviation present. Cardiovascular: Normal rate, regular rhythm, normal heart sounds and intact distal pulses. Exam reveals no gallop and no friction rub. No murmur heard. Pulmonary/Chest: Effort normal and breath sounds normal. No respiratory distress. She has no wheezes. She has no rales. She exhibits no tenderness. Abdominal: Soft. Bowel sounds are normal. She exhibits no distension and no mass. There is no tenderness. There is no rebound and no guarding. Musculoskeletal: Dopplerable pulses of the lower extremities, I am unable to palpate DP or PT pulses of the left lower extremity, I am able to palpate DP and PT pulses on the right, both feet are cool to the touch, toes are cyanotic bilaterally, the second toe of the left is the most cyanotic, patient reports tenderness palpation, there is no blistering, I'm able to palpate femoral pulses bilaterally, no extremity swelling Neurological: She is alert and oriented to person, place, and time. Skin: Skin is warm and dry. No rash noted. She is not diaphoretic. Nursing note and vitals reviewed. Diagnostic Testing ED Labs Ordered and Reviewed - No data to display Procedures Medical Decision Making / ED Course ED Course Records Reviwed Electronic medical record reviewed and significant for hx of arterial clots, ultrasound today showing L femoral artery occulusion LABS - reviewed and interpreted as: INR 1 CBC unremarkable BMP normal Vital signs were reviewed. Triage records were reviewed. Medical records were reviewed. Nursing notes were reviewed and incorporated MEDICATIONS ADMINISTERED ED Medication Administration from 10/21/2017 1717 to 10/21/2017 1923 Date/Time Order Dose Route Action 10/21/2017 1853 heparin iv infusion (STANDARD NOMOGRAM) 25,000 units in NaCl 0.45% 250 mL PREMIX 1,400 Units/hr INTRAVENOUS New Bag 10/21/2017 1906 heparin iv infusion (STANDARD NOMOGRAM) 25,000 units in NaCl 0.45% 250 mL PREMIX 0 Units/hr INTRAVENOUS Transferred from ED 10/21/2017 1853 heparin nomogram INITIAL BOLUS 6,100 Units INTRAVENOUS Given COURSE/MDM 52 year old presents with Left leg pain with a recent ultrasound showing a left femoral artery occlusion. I was able to Doppler pulses of the left foot. Patient did have reconstitution on the ultrasound. Vascular surgery consulted. Lab work drawn.Patient started on heparin infusion, admitted to vascular surgery. Riley Cardenas MD Encounter Diagnosis ICD-10-CM 1. 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 Condition at time of disposition: stable SIGNATURE: MD Shay Rich MD 10/21/17 1924 Celina Johansen, RN, RN 10/21/2017 5:56 PM Signed Vascular at bedside Karlie Maddox RN, RN 10/21/2017 8:33 PM Signed Nursing Progress Note Patient Name: Neil Mendenhall Patient Location: [place] [address]/[place] [address] Transfer Note: Patient transferred into room/unit PK2-227 in stable condition. Actions taken: Patient belongings with patient, VSS, tele applied, oriented to room, call light in reach. This note was completed by: SARAH Hernandez MD 10/25/2017 10:52 AM Signed [facility] - Operative Report NEIL MENDENHALL : 1965 AGE: 52 SEX: F ACCTNUM: [id number] HOSP SVC: INTM LOCATION: SICU01 ATTENDING PHYSICIAN: Benita Torres M.D. DATE OF PROCEDURE: 10/22/2017 PREOPERATIVE DIAGNOSIS: Left leg ischemic pain and discoloration of the third toe with peripheral artery disease. POSTOPERATIVE DIAGNOSIS: Thrombosis of the left SFA. NAME OF OPERATION: 1. Diagnostic abdominal aortogram, bilateral iliac and femoral popliteal angiogram. 2. Contralateral cannulation of the left posterior tibial artery from the right groin to the third order. 3. Placement of lysis catheter and wire in left posterior tibial artery and popliteal superficial femoral artery. SURGEON: Benita Torres M.D. TRUST ADMINISTRATOR: NONE ANESTHESIA: INDICATIONS: The patient is a long-term smoker with history of left leg intervention 2 years ago, balloon angioplasty. Presented in the emergency room, discoloration of the third toe and pain, was found to have occluded SFA. PVR study shows ARELI to 0.6. The scan shows occlusion of the SFA, and the patient experienced pain over the last 2 days. The patient in for diagnostic angio and intervention to manage the occluded lesion and salvage the toe. I explained to the patient procedure in detail. She signed proper consent. PROCEDURE: The patient placed on the x-ray table in the Cardiac catheterization Lab, given mild sedation. Right and left groin prepared and draped in usual fashion. We accessed the right femoral artery with microneedle and introduced #4 sheath. We advanced wire to the abdominal aorta. Pigtail catheter passed over the wire, placed at the abdominal aorta. Formal abdominal aortogram, bilateral iliac, and femoral popliteal runoff down to the ankle. Findings: The aorta and iliac arteries widely patent. The right SFA, right common femoral, superficial femoral popliteal artery patent with 2-vessel runoff including peroneal and posterior tibial artery seen to the foot. There anterior tibial artery is patent but small in the distal portion. On the left side, there is occlusion of the SFA just from its origin. Reconstituted popliteal artery above the knee. The popliteal artery patent. Anterior tibial artery occluded distal to its origin and the main runoff is the posterior tibial artery and peroneal artery, just seen to the ankle. With this finding, I gave the patient the option of to do nothing and there is potential risk on the toe and persistent pain versus doing bypass versus attempt lysis and with the procedure in detail, the risks and benefit was explained. The patient decided to go ahead with the lysis understanding the risks involved including distal embolization. Then with that decision, we proceeded with the interventional part. I used the RIM catheter and introduced the wire to the left superficial femoral artery. We introduced #6 sheath and using a roadmapping technique, I was able to get into the superficial femoral artery successfully. We advanced the catheter distally and the wire advanced with the Quick-Cross catheter to the popliteal artery. Confirming that with the angiogram with contrast make sure we were in the lumen. Following this, angled glide catheter used with the roadmapping technique to select the posterior tibial artery which was done successfully advancing the PT2 wire to the ankle. Following this, we advanced the lysis catheter over the wire with the lysis wire advanced to the posterior tibial artery distally and the lysis catheter, extended from the popliteal artery to the proximal SFA. The tPA will be infused. The patient received during the procedure 5000 units of heparin to have 500 units of heparin through the side sheath. The system was fixed to the skin and the tPA ordered to be initiated immediately. The patient sent to the Intensive Care for overnight lysis infusion. The patient tolerated the procedure well. Benita Torres M.D. Vascular Surgery [id number] /[id number] Ada Khan MD 10/22/2017 10:01 AM Addendum BRIEF OPERATIVE / PROCEDURE NOTE LOG ID: [id number] Surgery/Procedure Date: 10/22/2017 Incision/Procedure Start Time: Incision Close/Procedure End Time: Surgeon(s)/Proceduralist(s) and Swimmer(s): Surgeon(s) and Role: * Benita Torres - Primary * Ada Khan - Assisting No Additional Staff Procedure(s): Aortobifem angiogram, contralateral access to Left PT, third order, lysis catheter placed. Anesthesia: Procedural Sedation Findings: Blockage at Left PT, faint dopler signal at PT at end of case Estimated Blood Loss: 5 mls Specimens: None Wound Classification: Class 1, operative wound clean, non- traumatic, with no inflammation encountered, no break in technique, gastrointestinal and genitor-urinary tracts not entered Complications: None Pre-Op/Pre-Procedure Diagnosis: acute limb ischemia Post-Op/Post-Procedure Diagnosis: acute limb ischemia SIGNATURE: Ada Khan MD PATIENT NAME: Neil Mendenhall DATE: October 22, 2017 TIME: 9:54 AM PAGER/CONTACT #: Previous Version Linda Chase RN, RN 10/22/2017 10:12 AM Signed Nursing Progress Note Patient Name: Neil Mendenhall [id number] Daily Note: Pt alert and oriented, heparin gtt infulsing, NSS started per order. NPO since 1800 last night. Patient's sister Kathryn at bedside, supportive. All updated on POC. 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 Notified by mill labor supervisor pt tranferred to unit- all belongings in [id number] sent to ICU with PCNA. This note was completed by: Linda Chase, RN Nadine Puente, RN, RN 10/22/2017 8:18 PM Addendum Nursing Progress Note Patient Name: Neil Mendenhall [facility] Daily Note: 1020 Patient arrived from mill labor supervisor. Patient is awake and alert, conversing with staff. Patient connected to monitor. Full assessment to follow. 1050 Patient's sister at bedside 1055 Strategic Debriefing Officer at bedside to draw fibrinogen and cbc 1200 Dr. Torres at bedside, notified of patients itching. Doppled signals in left foot in his presence. 1208 Benadryl IV given for itching 1220 Pt reports some relief from itching in left leg. 1415 Difficulty in finding left lower extremity signals, toes appear more pale and purple and cool. Patient reports numbness and pain, patient is able to wiggle toes. Drs. Koehler and Sandy notified and are at the bedside. Warm blanket placed over left leg. 1440 Dr. Gamino at bedside to assess foot and pulses. Weak signals found. New order for Rooke boots. 1740 Dr. Nam at bedside to assess patient. Nurse explained that foot appears more cool and dusky at times and warmer and pinker at other vascular checks. Rooke boot and warming blanket in place to try to keep foot warm. Dr Nam requests STUDY ABROAD ADVISOR pain control for this patient. 1914 Report to oncoming RN. This note was completed by: Nadine Puente RN Previous Version Damien Delgado MD 10/22/2017 1:22 PM Addendum . CRITICAL CARE HISTORY AND PHYSICAL EXAMINATION PLEASE DO NOT REMOVE FROM THE CHART OR MODIFY PRINTED COPY Patient Name: Neil Mendenhall PRIMARY CARE PHYSICIAN: Kathryn Galvan MD CHIEF COMPLAINT: Acute LLE Limb Ischemia HPI: Neil Mendenhall is a 52 year old female, chronic smoker with history of PVD s/p multiple interventions to LLE including baloon angioplasties of the left SFA x 3 and lysis in 2013 for ALI. RSFA angioplasty x 1 (2011) who was admitted on 10/21/2017 for Acute LLE pain. POD #0 Aortobifem angiogram, Right Fem access to Left PT, Lysis. PAST MEDICAL HISTORY: PAST MEDICAL HISTORY Diagnosis Date - Carotid artery disease (HCC) PAST SURGICAL HISTORY: PAST SURGICAL HISTORY Procedure Laterality Date - ANGIO TRANSLUM BALL ANGIO ANGELO 2008 [id number] FAMILY HISTORY: No family history on file. SOCIAL HISTORY: Social History Substance Use Topics - Smoking status: Former Smoker Packs/day: 0.50 Years: 25.00 Types: Cigarettes Quit date: 09/01/2009 - Smokeless tobacco: Never Used Comment: currently using electronic cigarette - Alcohol use No MEDICATIONS: Prior to Admission Medications: NIFEdipine ER (PROCARDIA XL) 30 mg 24 hr tablet Take 1 tablet by mouth once daily. Cholecalciferol, Vitamin D3, 5,000 unit cap Take 5,000 Units by mouth once daily. warfarin (COUMADIN) 3 mg tablet Take 3 mg by mouth daily as directed. aspirin 81 mg chewable tablet Take 1 tablet by mouth once daily. pravastatin (PRAVACHOL) 20 mg tablet Take 20 mg by mouth once daily. lamoTRIgine (LAMICTAL) 200 mg tablet Take 200 mg by mouth once daily. aripiprazole(ABILIFY 20 MG TAB) Take one(1) tablet daily. oxyCODONE-acetaminophen (PERCOCET) 5-325 mg tablet Take 1- 2 tablets by mouth every 4 hours as needed for Pain. nitroglycerin (NITRO-BID) 2 % ointment Apply 0.5 g as directed twice daily. Apply in the morning and remove at night warfarin (COUMADIN) 4 mg tablet Take 4 mg by mouth daily as directed. As directed pregabalin (LYRICA) 225 mg capsule Take 225 mg by mouth twice daily. Current hospital medications: lamoTRIgine 200 mg tab(s) (LaMICtal) 200 mg ORAL DAILY simvastatin 10 mg tab(s) (ZOCOR) 10 mg ORAL AT BEDTIME ARIPiprazole 20 mg tab(s) (ABILIFY) 20 mg ORAL DAILY aspirin 81 mg chewable tab(s) 81 mg ORAL DAILY NIFEdipine XL 30 mg tab(s) (ADALAT CC) 30 mg ORAL DAILY NaCl 0.9% iv infusion 100 mL/hr INTRAVENOUS CONTINUOUS alteplase 10 mg in NaCl 0.9% 250 mL (ACTIVASE) 0.5 mg/hr INTRAVENOUS CONTINUOUS alteplase 10 mg in NaCl 0.9% 250 mL (ACTIVASE) 0.5 mg/hr INTRAVENOUS CONTINUOUS [MAR Hold due to Transfer] heparin iv infusion 25,000 units in 0.45% NaCl 250 mL PREMIX 500 Units/hr INTRA-ARTERIAL CONTINUOUS acetaminophen 650 mg tab(s) (TYLENOL) 650 mg ORAL q 6 H oxyCODONE IR 5-10 mg tab(s) (ROXICODONE) 5-10 mg ORAL q 6 H PRN morphine 4 mg injection 4 mg INTRAVENOUS q 2 H PRN hydrOXYzine pamoate 25 mg cap(s) (VISTARIL) 25 mg ORAL q 6 H PRN ALLERGIES: ALLERGIES Allergen Reactions - Horizant [Gabapenti* Mental Status Change - Wellbutrin [Bupropi* Other: See Comments Took med on Wednesday Woke up 3 days later in hospital COMPLETE REVIEW OF SYSTEMS: GENERAL: No weight loss, malaise or fevers. HEENT: Negative for new headaches, vision changes, dysphagia RESPIRATORY: Negative for cough, wheezing or shortness of breath. CARDIOVASCULAR: Negative for chest pain GI: No change in bowel habits, hematochezia, melena, nausea, vomiting : No history of dysuria MUSCULOSKELETAL: SEE HPI SKIN: Negative for new lesions HEMATOLOGY/LYMPHOLOGY: Negative for prolonged bleeding NEURO: No altered mental status PHYSICAL EXAM: BP 148/72 Pulse (!) 51 Temp 37 ?C (98.6 ?F) Resp 18 Ht 167.6 cm (5' 6) Wt 76.9 kg (169 lb 8 oz) SpO2 99% BMI 27.36 kg/m2 General appearance: uncomfortable appearing, alert, in no mild distress, well-hydrated, well nourished Neuro: Awake, alert, Sensation grossly intact. Skin: skin color, texture, turgor normal, no suspicious rashes or lesions HEENT: Normocephalic, EOMI, mucosa moist Lungs: clear to auscultation, no wheezing or rhonchi Heart: RRR without murmur, gallop, or rubs. Abdomen: Abdomen soft, non-tender, non-distended. Lines/Tubes/Drains: Lysis catheter/dressing in place in right groin Pulses/Signals: Radial Dorsalis Pedis Posterior Tibial Right Palpable +2 Biphasic Signal Triphasic Signal Left Palpable +2 Biphasic Signal Triphasic Signal DATA: Laboratory:CBC, Coags, BMP, Mg, Phos Recent Labs 10/22/17 1056 10/22/17 0422 10/22/17 0100 10/21/17 1750 WBC 9.29 9.25 -- 8.67 HB 13.0 12.8 -- 13.3 HCT 38.8 38.0 -- 39.0 PLT 361 390 -- 415* INR 1.0 -- -- 1.0 APTT 98.5* -- 51.8* 25.7 NA -- -- -- 141 K -- -- -- 3.5 CHLOR -- -- -- 101 CO2 -- -- -- 25 BUN -- -- -- 11 CREAT -- -- -- 0.74 GLUC -- -- -- 111* CA -- -- -- 9.2 Liver Function, Amylase, AND Lipase ABGs No results found for: LACT Radiology: Reviewed ASSESSMENT/PLAN: Neil Mendenhall is a 52 year old female, chronic smoker with history of PVD s/p multiple interventions to LLE including baloon angioplasties of the left SFA x 3 and lysis in 2013 for ALI. RSFA angioplasty x 1 (2011) who was admitted on 10/21/2017 for Acute LLE pain. POD #0 Aortobifem angiogram, Right Fem access to Left PT, Lysis. Indication for ICU admission: Vascular checks in the setting of the above surgery Neuro: - Analgesia: Tylenol, Marzena - Anxiety/Sedation/Itching: Benadryl x1, Hydroxyzine. Abilify - h/o Seizures on lamictal Cardiovascular: - Acute LLE on hep, TPA - HTN Nifedipine - CAD: Statin, ASA81 - ICU monitoring - IV Access: pIV Respiratory: - Incentive spirometry GI: - Nutrition/Diet: CLD. NPO @MN (Lysis check Tomorrow). Renal: (Baseline sCr: 0.74) - Urine output ok. sCr 0.74. Humphries indicated. - IVF NS at 100 - Electrolytes replete Ca, K >4, Phos >3, Mag >2. Heme/ID: - Hemoglobin ok. No evidence of bleeding. Transfuse for hgb < 7 or if symptomatic - WBC trend - Abx: none - DVT Prophylaxis: IPCs, Endo: - Glucose WNL. Wound Care: RLE imobile. - catheter/wire dressing in place MSK - Activity Level: Bedrest Dispo: SICU Plan to be discussed with ICU Staff Dr. Delgado. Mario Koehler MD General Surgery [C]: [phone] [P]: [id number] Date: 10/22/2017 Time: 11:57 AM [facility] STAFF PHYSICIAN SUPERVISING RESIDENT I have reviewed the progress note obtained and documented by the resident. I personally participated in the mcadams components. I have discussed the case and the plan and management of the patient's care with the ICU team AND Vascular Surgery. IMPRESSION AND PLAN: As annotated in the above note. Generally satisfactory postprocedure course so far. -perfusion clinically adequate -no evidence of bleeding -pain control only fair (reperfusion pain) -patient reports foot itching--trying Benadryl Continue close ICU monitoring AND frequent neurovascular checks. SIGNATURE: Damien Delgado MD DATE of SERVICE: 10/22/2017 TIME of SERVICE: 1:00 PM Previous Version Kaitlynn Michaels, RN, RN 10/23/2017 6:44 AM Addendum Nursing Progress Note Patient Name: Neil Mendenhall Patient Location: -SICU01/[facility]-01 Daily Note: 1900: Bedside report received from SARAH Mccoy. 1936: Dr. Koehler paged regarding hypertension and possible clinician doses. 1956: Dr. Koehler at bedside; PRN order for hydralazine received. Dr. Koehler is okay for q12h labs. 1999: Full assessment completed; see documentation. q1h vascular/right groin checks continue. Right groin dressing remains clean, dry, and intact. Patient reports pain is better controlled. 2026: Dr. Koehler paged regarding my inability to dopple the left DP signal. 2047: Dr. Koehler at bedside; able to dopple a signal in the right DP easily. The foot appears warmer and has better color. Rooke boot and bearhugger in use. 2099: Patient used bedpan and voided 5 cc; preventative allevyn applied to the coccyx. 2141: Bladder scan reveals 870 ml retained urine. Patient states she wants to use the bedpan one more time. 2218: Dr. Koehler made aware of fleeting DP pulse. 2223: Dr. Jo at bedside. Aware of fleeting DP pulse and doppled PT signal. Okay to continue to monitor. 2350: Dr. Koehler made aware of drop in fibrinogen. Will continue to monitor at this time. 0000: Reassessment completed; see documentation. 0020: HS rounds have been completed with Dr. Koehler. AM labs ordered. Updated on new shadowing on the right groin dressing. Also, made aware of the patient's vascular assessment. 0240: Bloody drainage noted on the right groin dressing. 0400: Reassessment completed; see documentation. 0508: Dr. Koehler made aware of increased right groin bleeding. Stat coags ordered. 0531: Dr. Koehler made aware of K of 3.7. 0551: Lab at bedside for coags. 0552: Patient placed on 2L O2 NC. 0642: Dr. Koehler made aware of fibrinogen of 149. Awaiting orders. 0700: Bedside report has been given to the day shift RN. This note was completed by: Kaitlynn Michaels RN Previous Version Herson Nam MD 11/10/2017 3:45 PM Signed [facility] - Operative Report NEIL MENDENHALL : 1965 AGE: 52 SEX: F ACCTNUM: [id number] [facility]: [facility] [place] LOCATION: [facility] ATTENDING PHYSICIAN: Benita Torres M.D. DATE OF PROCEDURE: 10/23/2017 PREOPERATIVE DIAGNOSIS: Severe peripheral vascular disease of left lower extremity. POSTOPERATIVE DIAGNOSIS: Same. NAME OF OPERATION: 1. Percutaneous vascular stent placement of left femoral popliteal artery with angioplasty. 2. Percutaneous transluminal angioplasty of distal left posterior tibial artery - multiple. 3. Angiogram via existing catheter for followup of thrombolytic therapy. SURGEON: Herson Nam M.D. TRUST ADMINISTRATOR: NONE ANESTHESIA: Local with sedation. START TIME: 0851 hours. END TIME: 1017 hours. INDICATIONS: This is a pleasant 52-year-old woman undergoing thrombolytic therapy for [id number] peripheral vascular disease of the left lower extremity. Her limb remains viable overnight, but with a very weak Doppler signal at the ankle. She is taken to the Angiography suite for followup of thrombolytic therapy and further intervention if required. The risks, benefits, and alternatives of treatment were discussed. The patient understood and agreed to proceed. FINDINGS: The left common femoral and deep femoral arteries are widely patent. The area of occlusion of the left superficial femoral artery remains occluded with a high-grade stenosis in the upper third of the thigh. Partial thrombus resolution has occurred. The popliteal artery above and below the knee is widely patent. Primary runoff is through the posterior tibial artery to the ankle. The anterior tibial artery appears to occlude in the upper third of the calf and the peroneal artery in the mid calf. Distal images suggest some degree of high-grade stenosis versus partial thromboembolic disease of the posterior tibial artery near the ankle with only faint flow beyond this. After balloon angioplasty of the involved area, complete resolution of the distal posterior tibial artery disease is noted without evidence of arterial dissection or embolization. After angioplasty and stenting of the femoropopliteal disease, there is complete resolution of preexisting occlusive disease, no evidence of dissection or thromboembolic complication, and the patient had a palpable posterior tibial pulse at the ankle. At the end of the procedure, the patient also had strongly audible dorsalis pedis Doppler signal and warm pink toes with brisk capillary refill, this being much improved compared to pre-intervention. PROCEDURE: The patient was placed on the angiography table in a supine position. The existing wire, catheter, and sheath devices were prepped and draped in sterile fashion. Angiogram via the existing catheter and wire was accomplished. The patient was fully heparinized with additional heparin being given throughout the procedure to maintain a therapeutic ACT value. A 0.014-inch pT2 wire was passed under fluoroscopy to the distal posterior tibial artery level. A 0.014-inch Quick- Cross catheter was used to assist with crossing of the distal posterior tibial artery disease into the foot. A test injection of contrast confirmed appropriate location of the catheter below the occlusive disease process with a patent medial and lateral plantarartery system and good collateralization around the pedal arch. Balloon angioplasty of the posterior tibial artery disease was initially performed with a Lesage 2 x 40 mm balloon angioplasty catheter. A significant improvement was noted with mild irregularity seen but good flow distally. Next, the superficial femoral artery occlusive disease was pre-dilated with a [employer] Bertrand 5 x 60 mm balloon angioplasty catheter. Significant residual recoil and stenosis were noted at one point such that stenting was felt to be most appropriate. Thus, a NeuroPace Zilver PTX 7 x 80 mm stent was placed and deployed. This was then post dilated with a 6 x 80 mm Bertrand balloon with excellent result noted. Completion arteriogram revealed wide patency of the femoral popliteal system, no change in the trifurcation area with wide patency proximally, and no change in the anterior tibial or peroneal perfusion distally. The posterior tibial artery was patent to the ankle where at least Moderately severe irregularity and stenosis were noted, though improved compared to initially. At this point, I elected to use an AngioSculpt balloon in this location with a long slow steady inflation being performed. Completion angiogram revealed a technically excellent result with no evidence of residual stenosis, dissection, or distalembolization into the foot. A palpable foot pulse and brisk pink capillary refill of the toes was now identified, suggesting a clinically significant improvement of distal perfusion. At this point, the procedure was terminated. The existing sheath was retracted over the aortic bifurcation using a 0.035-inch Gerber Advantage wire. Angiogram of the right femoral and iliac system was performed showing satisfactory anatomy for a closure device. The existing sheath was then removed and a StarClose 6-[place]ay[place] Islander device deployed and hemostasis achieved. A sterile dressing was applied. The patient tolerated the procedure well. Herson Nam M.D. Vascular Surgery DM:[id number] /[id number] cc:Benita Torres M.D. Previous Version Damien Delgado MD 10/23/2017 11:12 AM Addendum Critical Care Progress Note Service Date: October 23, 2017 Assessment and Plan: Neil Mendenhall is a 52 year old female, chronic smoker with history of PVD s/p multiple interventions to LLE including baloon angioplasties of the left SFA x 3 and lysis in 2013 for ALI. RSFA angioplasty x 1 (2011) who was admitted on 10/21/2017 for Acute LLE pain. POD #1 Aortobifem angiogram, Right Fem access to Left PT, Lysis. ? Indication for ICU admission: Vascular checks in the setting of the above surgery ? Neuro: - Analgesia: Tylenol, Marzena - Anxiety/Sedation/Itching: Benadryl x1, Hydroxyzine. Abilify - h/o Seizures on lamictal ? Cardiovascular: - Acute LLE on hep, TPA. Plan for Lysis today - HTN Nifedipine - CAD: Statin, ASA81 - ICU monitoring - IV Access: pIV ? Respiratory: - Incentive spirometry ? GI: - Nutrition/Diet: CLD. NPO @MN (Lysis check Tomorrow). ? Renal: (Baseline sCr: 0.74) - Urine output ok. sCr 0.66. Humphries indicated. - IVF NS at 100 - Electrolytes replete Ca, K >4, Phos >3, Mag >2. ? Heme/ID: - Hemoglobin 12.9. No evidence of bleeding. Transfuse for hgb < 7 or if symptomatic - Fibrinogen 605 > 194 > pending - WBC 8.8 - Abx: none - DVT Prophylaxis: IPCs, no SQH ? Endo: - Glucose WNL. ? Wound Care: RLE imobile. - catheter/wire dressing in place ? MSK - Activity Level: Bedrest ? Dispo: SICU ? Plan to be discussed with ICU Staff Dr. Delgado. Mario Koehler MD General Surgery [C]: [phone] [P]: [id number] Date: 10/23/2017 Time: 5:26 AM Subjective: Interval Events: NAEON. Bleeding around catheter site. Exam unchanged Physical Exam: BP 131/64 Pulse 75 Temp 37.2 ?C (99 ?F) (Oral) Resp 17 Ht 167.6 cm (5' 6) Wt 78.8 kg (173 lb 11.6 oz) SpO2 91% BMI 28.04 kg/m2 GENERAL: Well appearing 52 year old female in no distress NEURO: AAOx3, GCS HEENT: Atraumatic CHEST: nonlabored breathing on RA. NL rate and rhythm ABDOMEN: soft, non-distended, non-tender EXTREMITIES: Warm well perfused, no deformities. Lysis catheter in place. LLE toes with good cap refill, cyanosis improved Pulses/Signals: Radial Dorsalis Pedis Posterior Tibial Peroneal Right Palpable +2 Biphasic Signal Biphasic Signal Not assessed Left Palpable +2 Monophasic Signal Biphasic Signal Biphasic Signal Labs: CBC, BMP, MG, PHOS Recent Labs 10/23/17 0324 10/22/17 2229 10/22/17 1056 10/22/17 0422 10/21/17 1750 04/23/14 0712 04/22/14 0030 04/21/14 1220 04/21/14 0400 04/20/14 2040 WBC -- 8.81 9.29 9.25 8.67 < > 8.99 8.45 10.13 7.92 11.25* HB -- 12.9 13.0 12.8 13.3 < > 10.5* 10.1* 10.9* 10.9* 11.7 HCT -- 38.3 38.8 38.0 39.0 < > 31.5* 30.9* 33.3* 33.4* 33.8* PLT -- 289 361 390 415* < > 334 284 292 313 291 NA 139 -- -- -- 141 -- 140 138 137 140 139 K 3.7 -- -- -- 3.5 -- 4.1 3.7 4.1 3.8 3.9 CHLOR 103 -- -- -- 101 -- 103 106 105 107 106 CO2 21* -- -- -- 25 -- 25 24 23 23 21* BUN 6* -- -- -- 11 -- 5* 6* 7* 7* 9 CREAT 0.66* -- -- -- 0.74 -- 0.85 0.73 0.81 0.87 0.96 GLUC 87 -- -- -- 111* -- 83 159* 97 146* 110* CA 8.3* -- -- -- 9.2 -- 8.8 8.0* 8.3* 8.4* 8.8 MG 2.1 -- -- -- -- -- -- -- 2.1 2.2 2.1 P 3.1 -- -- -- -- -- -- -- 3.1 3.5 3.1 < > = values in this interval not displayed. Liver Function, Amylase, AND Lipase Recent Labs 04/20/14 2040 01/15/11 1712 TPROT 7.0 7.6 ALB 3.6 4.48 ALT 26 -- AST 16 -- ALKPHOS 77 -- TBILI 0.3 -- Coags Recent Labs 10/22/17 2229 10/22/17 1056 10/22/17 0100 10/21/17 1750 04/24/14 0514 APTT 39.9* 98.5* 51.8* 25.7 60.9* INR 1.2 1.0 -- 1.0 1.0 Intake and Output: Date 10/22/17699 - 10/23/17 0659 10/23/17 07 - 10/24/17 0659 Shift 8685-3182 1413-2561 2549-9053 24 Hour Total 7820-2106 6104-4742 4772-9856 24 Hour Total I N T A K E PO 120 120 240 PO 120 120 240 IV 939 680.3 1619.3 NS 0.9% 939 939 Heparin IV 216.3 216.3 TPA 464 464 Shift Total 1059 800.3 1859.3 O U T P U T Urine 400 757 036 6806 Void (ml) 400 384 634 3445 # of BMs Number of BMs 0 x 0 x 0 x Shift Total 400 346 847 3035 Weight (kg) 76.9 76.9 78.8 78.8 78.8 78.8 78.8 78.8 Current Medications: Current hospital medications: lamoTRIgine 200 mg tab(s) (LaMICtal) 200 mg ORAL DAILY simvastatin 10 mg tab(s) (ZOCOR) 10 mg ORAL AT BEDTIME ARIPiprazole 20 mg tab(s) (ABILIFY) 20 mg ORAL DAILY aspirin 81 mg chewable tab(s) 81 mg ORAL DAILY NIFEdipine XL 30 mg tab(s) (ADALAT CC) 30 mg ORAL DAILY NaCl 0.9% iv infusion 100 mL/hr INTRAVENOUS CONTINUOUS alteplase 10 mg in NaCl 0.9% 250 mL (ACTIVASE) 0.5 mg/hr INTRAVENOUS CONTINUOUS alteplase 10 mg in NaCl 0.9% 250 mL (ACTIVASE) 0.5 mg/hr INTRAVENOUS CONTINUOUS heparin iv infusion 25,000 units in 0.45% NaCl 250 mL PREMIX 500 Units/hr INTRA-ARTERIAL CONTINUOUS acetaminophen 650 mg tab(s) (TYLENOL) 650 mg ORAL q 6 H oxyCODONE IR 5-10 mg tab(s) (ROXICODONE) 5-10 mg ORAL q 6 H PRN hydrOXYzine pamoate 25 mg cap(s) (VISTARIL) 25 mg ORAL q 6 H PRN HYDROmorphone STUDY ABROAD ADVISOR 0.5 mg/mL in NaCl 0.9% 100 mL INTRAVENOUS CONTINUOUS hydrALAZINE 10-20 mg injection (APRESOLINE) 10-20 mg INTRAVENOUS q 6 H PRN Prior to Admission Medications: NIFEdipine ER (PROCARDIA XL) 30 mg 24 hr tablet Take 1 tablet by mouth once daily. Cholecalciferol, Vitamin D3, 5,000 unit cap Take 5,000 Units by mouth once daily. warfarin (COUMADIN) 3 mg tablet Take 3 mg by mouth daily as directed. aspirin 81 mg chewable tablet Take 1 tablet by mouth once daily. pravastatin (PRAVACHOL) 20 mg tablet Take 20 mg by mouth once daily. lamoTRIgine (LAMICTAL) 200 mg tablet Take 200 mg by mouth once daily. aripiprazole(ABILIFY 20 MG TAB) Take one(1) tablet daily. oxyCODONE-acetaminophen (PERCOCET) 5-325 mg tablet Take 1- 2 tablets by mouth every 4 hours as needed for Pain. nitroglycerin (NITRO-BID) 2 % ointment Apply 0.5 g as directed twice daily. Apply in the morning and remove at night warfarin (COUMADIN) 4 mg tablet Take 4 mg by mouth daily as directed. As directed pregabalin (LYRICA) 225 mg capsule Take 225 mg by mouth twice daily. [facility] STAFF PHYSICIAN SUPERVISING RESIDENT I have reviewed the progress note obtained and documented by the resident. I personally participated in the mcadams components. I have discussed the case and the plan and management of the patient's care with the ICU team AND Vascular Surgery. IMPRESSION AND PLAN: As annotated in the above note. Lysis completed this morning, sheath removed. Will continue to monitor in the ICU for a few more hours post-sheath removal. If no problems, then transfer to surgical floor later today. SIGNATURE: Damien Delgado MD DATE of SERVICE: 10/23/2017 TIME of SERVICE: 11:10 AM Previous Version Kianna Jo MD 10/23/2017 8:39 AM Signed Name: Neil Mendenhall Date: 10/23/2017 Assessment and Plan: 52 year old female with ALI of left leg, s/p lysis 10/22. - dopplerable PT, faint DP signal of left leg. - lysis check this am Kianna oJ MD, PGY-5 Pager/ *After 6pm and on weekends please page surgery stallion keeper [phone]* Subjective: no issue Objective: BP 118/68 Pulse 75 Temp 37 ?C (98.6 ?F) (Oral) Resp 13 Ht 167.6 cm (5' 6) Wt 78.8 kg (173 lb 11.6 oz) SpO2 95% BMI 28.04 kg/m2 Intake and Output: 10/22 0700 - 10/23 0659 In: 1859.3 [PO:240; IV:1619.3] Out: 1680 [Urine:1680] CBC Recent Labs 10/23/17 0551 10/22/17 2229 10/22/17 1056 WBC 6.82 8.81 9.29 HB 12.6 12.9 13.0 PLT 301 289 361 BMP Recent Labs 10/23/17 0324 10/21/17 1750 NA 139 141 K 3.7 3.5 CHLOR 103 101 CO2 21* 25 BUN 6* 11 CREAT 0.66* 0.74 GLUC 87 111* CA 8.3* 9.2 Physical exam: General: Awake, alert and oriented, NAD Respiratory: Non-labored breathing Cardiac: RRR Left leg warm, motor and sensory intact, biphasic PT, faint monophasic DP Ioana Levine RN, RN 10/23/2017 7:10 PM Addendum Nursing Progress Note Patient Name: Neil Mendenhall [facility] [place] [address] 0700 Received report form SARAH Manzano, patient resting in bed, cheko hugger to left lower extremity, rooke boot to right. Dilaudid STUDY ABROAD ADVISOR infusion. NPO for lysis check this a.m. 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 Vascular check performed with offgoing RN, +2 doppled DP to left and +1 PT to left, +2 on right, both easily doppled. VSS. 0800 Patient c/o nausea, medicated with Zofran 4 mg IV. 0830 clinical lab specialist team to bedside, patient to mill labor supervisor. 1130 Patient returned from clinical lab specialist, palpable PT/DP to left lower extremity. 1200 Assessment unchanged, continuing with q1h vascular checks. 1600 Patient assisted to en suite commode with assist x 2 and walker, voided, pericare completed, assisted back to bed. 1800 Report called to [id number] RN. 1830 Transferred with all belongings. This note was completed by: Ioana Levine RN Previous Version Herson Nam MD 10/23/2017 10:27 AM Signed BRIEF OPERATIVE / PROCEDURE NOTE LOG ID: [id number] Surgery/Procedure Date: 10/23/2017 Incision/Procedure Start Time: 08 Incision Close/Procedure End Time: 1016 Surgeon(s)/Proceduralist(s) and Swimmer(s): Surgeon(s) and Role: * Herson Ramírez - Primary No Additional Staff Procedure(s): lysis angiogram;AIR TWISTER WINDER/stent left SFA; AIR TWISTER WINDER left distal PT artery Anesthesia: Procedural Sedation Findings: incomplete lysis; high grade sfa And distal PT lesions; 0% residual stenosis after intervention Estimated Blood Loss: 0 ml Specimens: None Complications: None Pre-Op/Pre-Procedure Diagnosis: pvd Post-Op/Post-Procedure Diagnosis: same SIGNATURE: Herson Nam MD PATIENT NAME: Neil Mendenhall DATE: October 23, 2017 TIME: 10:25 AM PAGER/CONTACT #: Zuleika Abel RN, RN 10/23/2017 6:56 PM Signed Nursing Progress Note Patient Name: Neil Mendenhall [id number] Daily Note:Patient arrived from SICU in stable condition per bed. Patient requesting maryanne orozco for leg This note was completed by: SARAH Peace MD 10/24/2017 10:58 AM Addendum [facility] PROGRESS NOTE Service Date: 10/24/2017Admit Date: 10/21/2017Service Time: 10:04 AM LOS: 3 day(s) Interval Events/Issues: No acute issues. Subjective Current hospital medications: heparin 5,000 Units injection 5,000 Units SUBCUTANEOUS q 12 H ondansetron (PF) 4 mg injection (ZOFRAN) 4 mg INTRAVENOUS q 6 H PRN clopidogrel 75 mg tab(s) (PLAVIX) 75 mg ORAL DAILY lamoTRIgine 200 mg tab(s) (LaMICtal) 200 mg ORAL DAILY simvastatin 10 mg tab(s) (ZOCOR) 10 mg ORAL AT BEDTIME ARIPiprazole 20 mg tab(s) (ABILIFY) 20 mg ORAL DAILY aspirin 81 mg chewable tab(s) 81 mg ORAL DAILY NIFEdipine XL 30 mg tab(s) (ADALAT CC) 30 mg ORAL DAILY NaCl 0.9% iv infusion 100 mL/hr INTRAVENOUS CONTINUOUS acetaminophen 650 mg tab(s) (TYLENOL) 650 mg ORAL q 6 H oxyCODONE IR 5-10 mg tab(s) (ROXICODONE) 5-10 mg ORAL q 6 H PRN hydrOXYzine pamoate 25 mg cap(s) (VISTARIL) 25 mg ORAL q 6 H PRN HYDROmorphone STUDY ABROAD ADVISOR 0.5 mg/mL in NaCl 0.9% 100 mL INTRAVENOUS CONTINUOUS hydrALAZINE 10-20 mg injection (APRESOLINE) 10-20 mg INTRAVENOUS q 6 H PRN ALLERGIES Allergen Reactions - Horizant [Gabapenti* Mental Status Change - Wellbutrin [Bupropi* Other: See Comments Took med on Wednesday Woke up 3 days later in hospital Objective PHYSICAL EXAM: Patient Vitals for the past 24 hrs: BP Temp Temp src Pulse Resp SpO2 10/24/17 0827 153/70 37 ?C (98.6 ?F) Temporal Art 76 17 97 % 10/24/17 0405 152/66 36.7 ?C (98.1 ?F) Temporal Art 71 16 97 % 10/23/17 2359 124/56 37 ?C (98.6 ?F) Temporal Art 74 16 96 % 10/23/17 1852 132/53 37.2 ?C (98.9 ?F) Oral 76 17 95 % 10/23/17 1800 126/60 - - 78 17 95 % 10/23/17 1700 114/64 - - 74 17 95 % 10/23/17 1600 119/60 37 ?C (98.6 ?F) Oral 72 15 93 % 10/23/17 1500 116/61 - - 78 16 89 % 10/23/17 1400 117/61 - - 82 15 90 % 10/23/17 1300 111/57 - - 82 17 92 % 10/23/17 1200 114/63 37.1 ?C (98.8 ?F) Oral 71 16 92 % 10/23/17 1100 118/64 - - 68 17 95 % Intake/Output Summary (Last 24 hours) at 10/24/17 1003 Last data filed at 10/24/17 0846 Gross per 24 hour Intake 240 ml Output 1451 ml Net -1211 ml CONSTITUTIONAL: Well developed NEUROLOGIC/PSYCHIATRIC: Oriented to time, place AND person INTEGUMENTARY: Wound - No SURGICAL SITES: None MUSCULOSKELETAL: No deformities Pulses/Signals: triphasic pulses DP and PT DATA: Laboratory: Recent Labs 10/24/17 0433 10/23/17 1121 10/23/17 0551 WBC 7.90 10.17 6.82 HB 11.6 12.2 12.6 HCT 34.5* 37.1 37.7 PLT 284 271 301 Recent Labs 10/24/17 0433 10/23/17 0324 10/21/17 1750 NA 142 139 141 K 3.7 3.7 3.5 BUN 8 6* 11 CREAT 0.72 0.66* 0.74 GLUC 97 87 111* MG -- 2.1 -- Recent Labs 10/23/17 2320 10/23/17 0551 10/22/17 2229 10/22/17 1056 APTT 27.8 36.2* 39.9* 98.5* INR -- 1.3 1.2 1.0 Assessment/Plan Impression: This is a 52 year old female s/p thrombolysis for ALI. - Discharge home. - DAPT. - Duplex in outpatient setting, SIGNATURE: Dyan Roman MD PATIENT NAME: Neil Mendenhall DATE: October 24, 2017 TIME: 10:03 AM PAGER/CONTACT #: [phone] Agree with above. The patient was seen and examined by me this morning. She has a 2+ palpable left PT pulse, return of normal color to the toes of the left foot (with minor faint bluish discoloration of the tip of the second toe, though much improved from previously), and no evidence of groin access site complication. She can be discharged to home with vascular surgery follow-up in one month for office visit and surveillance ultrasound of her left leg revascularization. She does not require continued Coumadin on a long-term basis from my perspective.Herson Nam MD October 24, 2017 10:58 AM Previous Version Zuleika Abel, RN, RN 10/24/2017 10:29 AM Signed Nursing Progress Note Patient Name: Neil Mendenhall Patient [facility] [place] [address] Daily Note Patient ready for discharge script for Plavix given to patient. Pulses are palpable bilaterally. , Pain is present left foot toes doctors are aware. This note was completed by: SARAH Peace MD 10/24/2017 10:00 PM Signed DISCHARGE SUMMARY PATIENT NAME: Neil Mendenhall ADMISSION DATE: 10/21/2017 DISCHARGE DATE: 10/24/2017 Attending: Herson Ramírez Reason for Hospitalization: Morbid obesity Active Problems: Thrombus Resolved Problems: * No resolved hospital problems. * Operations During Hospitalization: Procedure(s) and Anesthesia Type: * TRANSCATH THERAPY ARTERIAL OR VENOUS INFUSION FOR THROMBOLYSIS OTHER THAN CORONARY W/ RADIOLOGICAL SUPERVISION/INTERPRET CONT TREATMENT ON SUBSEQUENT DAY DURING COURSE OF THROMBOLYTIC THERAPY W/ FOLLOW-UP CATH CONTRAST INJECTION POSITION CHANGE/EXCHANGE - Procedural Sedation Procedures During Hospitalization: No procedures performed Hospital Course: Neil Mendenhall is a 52 year old F, who presented with clinical picture of critical limb ischemia, who underwent thrombolysis with successful methodist of flow. COMPLICATIONS PRIOR TO D/C: NONE Pre-Discharge Adverse Events Time Occurred after Surgery: 0 hours. Radiologic Studies Performed during Hospitalization Included:US OLEG Pain Control: Adequate management. Labs and Procedures Pending at Discharge: No pending results. Consulting Teams During Hospitalization: None Patient Condition at Discharge: Stable Discharge Disposition: Home/Self Care Discharge Physical Exam: VITAL SIGNS: BP 153/70 Pulse 76 Temp 37 ?C (98.6 ?F) (Temporal Artery) Resp 17 Ht 167.6 cm (5' 6) Wt 78.8 kg (173 lb 11.6 oz) SpO2 97% BMI 28.04 kg/m2 GENERAL: Alert, no distress, cooperative LUNGS: Lungs clear to auscultation, Good diaphragmatic excursion CARDIAC: Normal S1 and S2; no rubs, murmurs, or gallops ABDOMEN: Abdomen soft, non-tender, BS normal, No masses or organomegaly EXTREMITIES: Extremities normal, no deformities, edema, clubbing or skin discoloration. Good capillary refill. Information Provided to Patient: Patient given copy of Discharge Instructions No special instructions. Discharge Medications:Discharge Medication List as of 10/24/2017 8:52 AM CONTINUE these medications which have CHANGED clopidogrel (PLAVIX) 75 mg tablet Take 1 tablet by mouth once daily. Print RX, Disp-30 tablet, R-2 CONTINUE these medications which have NOT CHANGED oxyCODONE-acetaminophen (PERCOCET) 5-325 mg tablet Take 1-2 tablets by mouth every 4 hours as needed for Pain. Print RX, Disp-120 tablet, R-0 nitroglycerin (NITRO-BID) 2 % ointment Apply 0.5 g as directed twice daily. Apply in the morning and remove at night Print RX, Disp-30 g, R-0 NIFEdipine ER (PROCARDIA XL) 30 mg 24 hr tablet Take 1 tablet by mouth once daily. Normal, Disp-30 tablet, R-3 Cholecalciferol, Vitamin D3, 5,000 unit cap Take 5,000 Units by mouth once daily. Historical Med pregabalin (LYRICA) 225 mg capsule Take 225 mg by mouth twice daily. Historical Med aspirin 81 mg chewable tablet Take 1 tablet by mouth once daily. OTC, R-0 pravastatin (PRAVACHOL) 20 mg tablet Take 20 mg by mouth once daily. Historical Med lamoTRIgine (LAMICTAL) 200 mg tablet Take 200 mg by mouth once daily. Historical Med aripiprazole(ABILIFY 20 MG TAB) Take one(1) tablet daily. Med Update, R-0 STOP taking these medications warfarin (COUMADIN) 4 mg tablet Comments: Reason for Stopping: warfarin (COUMADIN) 3 mg tablet Comments: Reason for Stopping: Future Appointments: Follow Up with PCP: Kathryn Galvan MD Future Appointments Date Time Provider Department Center 11/15/2017 9:15 AM Jessica RING [facility] TIME OF CARE: Discharge Management: I personally spent greater than 30 minutes involved in the discharge management of this patient. SIGNATURE: Dyan Roman MD PAGER: [phone] DATE: October 24, 2017 TIME: 9:18 PM Previous Version CNDS Observed: 10/24/2017 Status: COMPLETED Source: [facility] 12:15 PM CLINIC OTHER CAMPUS REPOSITORY HNO ID: [id number] Author: Dyan Roman (Fel) Service: Vascular Surgery Author Type: Resident Type: Discharge Summaries Filed: 10/24/2017 10:00 PM Note Text: DISCHARGE SUMMARY PATIENT NAME: Neil Mendenhall ADMISSION DATE: 10/21/2017 DISCHARGE DATE: 10/24/2017 Attending: Herson Ramírez Reason for Hospitalization: Morbid obesity Active Problems: Thrombus Resolved Problems: * No resolved hospital problems. * Operations During Hospitalization: Procedure(s) and Anesthesia Type: * TRANSCATH THERAPY ARTERIAL OR VENOUS INFUSION FOR THROMBOLYSIS OTHER THAN CORONARY W/ RADIOLOGICAL SUPERVISION/INTERPRET CONT TREATMENT ON SUBSEQUENT DAY DURING COURSE OF THROMBOLYTIC THERAPY W/ FOLLOW- UP CATH CONTRAST INJECTION POSITION CHANGE/EXCHANGE - Procedural Sedation Procedures During Hospitalization: No procedures performed Hospital Course: Neil Mendenhall is a 52 year old F, who presented with clinical picture of critical limb ischemia, who underwent thrombolysis with successful methodist of flow. COMPLICATIONS PRIOR TO D/C: NONE Pre-Discharge Adverse Events Time Occurred after Surgery: 0 hours. Radiologic Studies Performed during Hospitalization Included:US LE Pain Control: Adequate management. Labs and Procedures Pending at Discharge: No pending results. Consulting Teams During Hospitalization: None Patient Condition at Discharge: Stable Discharge Disposition: Home/Self Care Discharge Physical Exam: VITAL SIGNS: BP 153/70 Pulse 76 Temp 37 ?C (98.6 ?F) (Temporal Artery) Resp 17 Ht 167.6 cm (5' 6) Wt 78.8 kg (173 lb 11.6 oz) SpO2 97% BMI 28.04 kg/m2 GENERAL: Alert, no distress, cooperative LUNGS: Lungs clear to auscultation, Good diaphragmatic excursion CARDIAC: Normal S1 and S2; no rubs, murmurs, or gallops ABDOMEN: Abdomen soft, non-tender, BS normal, No masses or organomegaly EXTREMITIES: Extremities normal, no deformities, edema, clubbing or skin discoloration. Good capillary refill. Information Provided to Patient: Patient given copy of Discharge Instructions No special instructions. Discharge Medications:Discharge Medication List as of 10/24/2017 8:52 AM CONTINUE these medications which have CHANGED clopidogrel (PLAVIX) 75 mg tablet Take 1 tablet by mouth once daily. Print RX, Disp-30 tablet, R-2 CONTINUE these medications which have NOT CHANGED oxyCODONE-acetaminophen (PERCOCET) 5-325 mg tablet Take 1-2 tablets by mouth every 4 hours as needed for Pain. Print RX, Disp-120 tablet, R-0 nitroglycerin (NITRO-BID) 2 % ointment Apply 0.5 g as directed twice daily. Apply in the morning and remove at night Print RX, Disp-30 g, R-0 NIFEdipine ER (PROCARDIA XL) 30 mg 24 hr tablet Take 1 tablet by mouth once daily. Normal, Disp-30 tablet, R-3 Cholecalciferol, Vitamin D3, 5,000 unit cap Take 5,000 Units by mouth once daily. Historical Med pregabalin (LYRICA) 225 mg capsule Take 225 mg by mouth twice daily. Historical Med aspirin 81 mg chewable tablet Take 1 tablet by mouth once daily. OTC, R-0 pravastatin (PRAVACHOL) 20 mg tablet Take 20 mg by mouth once daily. Historical Med lamoTRIgine (LAMICTAL) 200 mg tablet Take 200 mg by mouth once daily. Historical Med aripiprazole(ABILIFY 20 MG TAB) Take one(1) tablet daily. Med Update, R-0 STOP taking these medications warfarin (COUMADIN) 4 mg tablet Comments: Reason for Stopping: warfarin (COUMADIN) 3 mg tablet Comments: Reason for Stopping: Future Appointments: Follow Up with PCP: Kathryn Galvan MD Future Appointments Date Time Provider Department Center 11/15/2017 9:15 AM Jessica [facility] TIME OF CARE: Discharge Management: I personally spent greater than 30 minutes involved in the discharge management of this patient. SIGNATURE: Dyan Roman MD PAGER: [phone] DATE: October 24, 2017 TIME: 9:18 PM NURSING PROG Observed: 10/24/2017 Status: COMPLETED Source: [facility] 10:26 AM CLINIC OTHER CAMPUS REPOSITORY HNO ID: [id number] Author: Zuleika JeffriesRn) SARAH Abel Service: (none) Author Type: Registered Nurse Type: Nursing Progress Note Filed: 10/24/2017 10:29 AM Note Text: Nursing Progress Note Patient Name: Neil Mendenhall Patient Location: [id number]/ Daily Note Patient ready for discharge script for Plavix given to patient. Pulses are palpable bilaterally. , Pain is present left foot toes doctors are aware. This note was completed by: Zuleika Abel RN PROGRESS Observed: 10/24/2017 Status: COMPLETED Source: [place] 10:03 AM CLIN[facility] OTHER CAMPUS REPOSITORY HNO ID: [id number] Author: Herson Ramírez Service: Vascular Surgery Author Type: Physician Type: Progress Notes Filed: 10/24/2017 10:58 AM Note Text: [facility] PROGRESS NOTE Service Date: 10/24/2017Admit Date: 10/21/2017Service Time: 10:04 AM LOS: 3 day(s) Interval Events/Issues: No acute issues. Subjective Current hospital medications: heparin 5,000 Units injection 5,000 Units SUBCUTANEOUS q 12 H ondansetron (PF) 4 mg injection (ZOFRAN) 4 mg INTRAVENOUS q 6 H PRN clopidogrel 75 mg tab(s) (PLAVIX) 75 mg ORAL DAILY lamoTRIgine 200 mg tab(s) (LaMICtal) 200 mg ORAL DAILY simvastatin 10 mg tab(s) (ZOCOR) 10 mg ORAL AT BEDTIME ARIPiprazole 20 mg tab(s) (ABILIFY) 20 mg ORAL DAILY aspirin 81 mg chewable tab(s) 81 mg ORAL DAILY NIFEdipine XL 30 mg tab(s) (ADALAT CC) 30 mg ORAL DAILY NaCl 0.9% iv infusion 100 mL/hr INTRAVENOUS CONTINUOUS acetaminophen 650 mg tab(s) (TYLENOL) 650 mg ORAL q 6 H oxyCODONE IR 5-10 mg tab(s) (ROXICODONE) 5-10 mg ORAL q 6 H PRN hydrOXYzine pamoate 25 mg cap(s) (VISTARIL) 25 mg ORAL q 6 H PRN HYDROmorphone STUDY ABROAD ADVISOR 0.5 mg/mL in NaCl 0.9% 100 mL INTRAVENOUS CONTINUOUS hydrALAZINE 10-20 mg injection (APRESOLINE) 10-20 mg INTRAVENOUS q 6 H PRN ALLERGIES Allergen Reactions - Horizant [Gabapenti* Mental Status Change - Wellbutrin [Bupropi* Other: See Comments Took med on Wednesday Woke up 3 days later in hospital Objective PHYSICAL EXAM: Patient Vitals for the past 24 hrs: BP Temp Temp src Pulse Resp SpO2 10/24/17 0827 153/70 37 ?C (98.6 ?F) Temporal Art 76 17 97 % 10/24/17 0405 152/66 36.7 ?C (98.1 ?F) Temporal Art 71 16 97 % 10/23/17 2359 124/56 37 ?C (98.6 ?F) Temporal Art 74 16 96 % 10/23/17 1852 132/53 37.2 ?C (98.9 ?F) Oral 76 17 95 % 10/23/17 1800 126/60 - - 78 17 95 % 10/23/17 1700 114/64 - - 74 17 95 % 10/23/17 1600 119/60 37 ?C (98.6 ?F) Oral 72 15 93 % 10/23/17 1500 116/61 - - 78 16 89 % 10/23/17 1400 117/61 - - 82 15 90 % 10/23/17 1300 111/57 - - 82 17 92 % 10/23/17 1200 114/63 37.1 ?C (98.8 ?F) Oral 71 16 92 % 10/23/17 1100 118/64 - - 68 17 95 % Intake/Output Summary (Last 24 hours) at 10/24/17 1003 Last data filed at 10/24/17 0846 Gross per 24 hour Intake 240 ml Output 1451 ml Net -1211 ml CONSTITUTIONAL: Well developed NEUROLOGIC/PSYCHIATRIC: Oriented to time, place AND person INTEGUMENTARY: Wound - No SURGICAL SITES: None MUSCULOSKELETAL: No deformities Pulses/Signals: triphasic pulses DP and PT DATA: Laboratory: Recent Labs 10/24/17 0433 10/23/17 1121 10/23/17 0551 WBC 7.90 10.17 6.82 HB 11.6 12.2 12.6 HCT 34.5* 37.1 37.7 PLT 284 271 301 Recent Labs 10/24/17 0433 10/23/17 0324 10/21/17 1750 NA 142 139 141 K 3.7 3.7 3.5 BUN 8 6* 11 CREAT 0.72 0.66* 0.74 GLUC 97 87 111* MG -- 2.1 -- Recent Labs 10/23/17 2320 10/23/17 0551 10/22/17 2229 10/22/17 1056 APTT 27.8 36.2* 39.9* 98.5* INR -- 1.3 1.2 1.0 Assessment/Plan Impression: This is a 52 year old female s/p thrombolysis for ALI. - Discharge home. - DAPT. - Duplex in outpatient setting, SIGNATURE: Dyan Roman MD PATIENT NAME: Neil Mendenhall DATE: October 24, 2017 TIME: 10:03 AM PAGER/CONTACT #: [phone] Agree with above. The patient was seen and examined by me this morning. She has a 2+ palpable left PT pulse, return of normal color to the toes of the left foot (with minor faint bluish discoloration of the tip of the second toe, though much improved from previously), and no evidence of groin access site complication. She can be discharged to home with vascular surgery follow-up in one month for office visit and surveillance ultrasound of her left leg revascularization. She does not require continued Coumadin on a long-term basis from my perspective.Herson Nam MD October 24, 2017 10:58 AM CBC Collected: 10/24/2017 Status: F Source: [facility] 4:33 AM CLINIC OTHER CAMPUS REPOSITORY TYPE CODE TESTS RESULT OUT OF REFERENCE UNITS RANGE LAB WBC 3.70-11.00 k/uL WBC 7.90 LAB RBC 3.90-5.20 m/uL RBC 4.08 LAB HGB 11.5-15.5 g/dL Hemoglobin 11.6 LAB HCT 36.0-46.0 % Low Hematocrit 34.5 LAB MCV 80.0-100.0 fL MCV 84.6 LAB MCH 26.0-34.0 pG MCH 28.4 LAB MCHC 30.5-36.0 g/dL MCHC 33.6 LAB RDWCV 11.5-15.0 % RDW-CV 13.9 LAB PLTCT 150-400 k/uL Platelet Count 284 LAB MPV 9.0-12.7 fL MPV 10.2 Performed By: #### CBC #### [place] [address] BASIC METABOLIC PANL Collected: 10/24/2017 Status: F Source: [facility] 4:33 AM CLIN[facility] OTHER CAMPUS REPOSITORY TYPE CODE TESTS RESULT OUT OF REFERENCE UNITS RANGE LAB GLU 65-100 mg/dL Glucose 97 LAB BUN 8-25 mg/dL BUN 8 LAB CRET 0.70-1.40 mg/dL Creatinine 0.72 LAB NA 132-148 mmol/L Sodium 142 LAB K 3.5-5.0 mmol/L Potassium 3.7 LAB CL 98-110 mmol/L Chloride 103 LAB CO2 23-32 mmol/L CO2 23 LAB AGAP 9-18 mmol/L Anion Gap 16 LAB CA 8.5-10.5 mg/dL Low Calcium, Total 8.3 LAB GFRAA >60 eGFR- >60 Amer. LAB GFRNAA >60 . eGFR-All Other Races >60 Performed By: #### BMP #### [place] [address] APTT Collected: 10/23/2017 Status: F Source: [facility] 11:20 PM [facility] REPOSITORY TYPE CODE TESTS RESULT OUT OF RANGE REFERENCE UNITS LAB APTT 23.0-32.4 sec APTT 27.8 Result Comment: Unfractionated Heparin Therapeutic Ranges: Standard Heparin Nomogram: 53 to 78 seconds (anti-Xa level of 0.3 to 0.7 U/ml) Low Dose/ACS Nomogram: 49 to 67 seconds (anti-Xa level of 0.2 to 0.5 U/ml) Stroke Treatment Nomogram: 49 to 67 seconds (anti-Xa level of 0.2 to 0.5 U/ml) Note: The APTT therapeutic range has been determined for the current lot of laboratory APTT reagent in use throughout the [facility]. Performed By: #### PTT #### [place] [address] NURSING PROG Observed: 10/23/2017 Status: COMPLETED Source: [facility] 6:54 PM [facility] REPOSITORY HNO ID: [id number] Author: Zuleika JeffriesRn) SARAH Abel Service: (none) Author Type: Registered Nurse Type: Nursing Progress Note Filed: 10/23/2017 6:56 PM Note Text: Nursing Progress Note Patient Name: Neil Mendenhall Patient Location: [facility]/[id number] Daily Note:Patient arrived from [facility] in stable condition per bed. Patient requesting bear cheryler for leg This note was completed by: Zuleika Abel RN CBC Collected: 10/23/2017 Status: F Source: [facility] 11:21 AM [facility] REPOSITORY TYPE CODE TESTS RESULT OUT OF REFERENCE UNITS RANGE LAB WBC 3.70-11.00 k/uL WBC 10.17 LAB RBC 3.90-5.20 m/uL RBC 4.37 LAB HGB 11.5-15.5 g/dL Hemoglobin 12.2 LAB HCT 36.0-46.0 % Hematocrit 37.1 LAB MCV 80.0-100.0 fL MCV 84.9 LAB MCH 26.0-34.0 pG MCH 27.9 LAB MCHC 30.5-36.0 g/dL MCHC 32.9 LAB RDWCV 11.5-15.0 % RDW-CV 14.0 LAB PLTCT 150-400 k/uL Platelet Count 271 LAB MPV 9.0-12.7 fL MPV 10.0 Performed By: #### CBC #### [place] [address] BRIEF OP NOT Observed: 10/23/2017 Status: COMPLETED Source: [facility] 10:25 AM [facility] REPOSITORY HNO ID: [id number] Author: Herson Ramírez Service: Vascular Surgery Author Type: Physician Type: Brief Op Note Filed: 10/23/2017 10:27 AM Note Text: BRIEF OPERATIVE / PROCEDURE NOTE LOG ID: [id number] Surgery/Procedure Date: 10/23/2017 Incision/Procedure Start Time: 0851 Incision Close/Procedure End Time: 1017 Surgeon(s)/Proceduralist(s) and Swimmer(s): Surgeon(s) and Role: * Herson Ramírez - Primary No Additional Staff Procedure(s): lysis angiogram;AIR TWISTER WINDER/stent left SFA; AIR TWISTER WINDER left distal PT artery Anesthesia: Procedural Sedation Findings: incomplete lysis; high grade sfa And distal PT lesions; 0% residual stenosis after intervention Estimated Blood Loss: 0 ml Specimens: None Complications: None Pre-Op/Pre-Procedure Diagnosis: pvd Post-Op/Post-Procedure Diagnosis: same SIGNATURE: Herson Nam MD PATIENT NAME: Neil Mendenhall DATE: October 23, 2017 TIME: 10:25 AM PAGER/CONTACT #: [email or web address] [phone] Observed: 10/23/2017 Status: COMPLETED Source: [place] 8:52 AM [facility] OTHER [place] REPOSITORY HNO ID: [id number] Author: Ioana Mccloud (Rn) SARAH Levine Service: Nursing Author Type: Registered Nurse Type: Nursing Progress Note Filed: 10/23/2017 7:10 PM Note Text: Nursing Progress Note Patient Name: Neil Mendenhall Patient Location: [place] [address] [address] Daily Note: 0700 Received report form SARAH Manzano, patient resting in bed, cheko hugger to left lower extremity, rooke boot to right. Dilaudid STUDY ABROAD ADVISOR infusion. NPO for lysis check this a.m. 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 Vascular check performed with offgoing RN, +2 doppled DP to left and +1 PT to left, +2 on right, both easily doppled. VSS. 0800 Patient c/o nausea, medicated with Zofran 4 mg IV. 0830 clinical lab specialist team to bedside, patient to mill labor supervisor. 1130 Patient returned from clinical lab specialist, palpable PT/DP to left lower extremity. 1200 Assessment unchanged, continuing with q1h vascular checks. 1600 Patient assisted to en suite commode with assist x 2 and walker, voided, pericare completed, assisted back to bed. 1800 Report called to SAMEER SMITH. 1830 Transferred with all belongings. This note was completed by: Ioana Levine RN PROGRESS Observed: 10/23/2017 Status: COMPLETED Source: [place] 8:37 AM [facility] OTHER [place] REPOSITORY HNO ID: [id number] Author: Kianna Jo Service: Vascular Surgery Author Type: Resident Type: Progress Notes Filed: 10/23/2017 8:39 AM Note Text: Name: Neil Mendenhall Date: 10/23/2017 Assessment and Plan: 52 year old female with ALI of left leg, s/p lysis 10/22. - dopplerable PT, faint DP signal of left leg. - lysis check this am Kianna Jo MD, PGY-5 Pager/ *After 6pm and on weekends please page surgery stallion keeper [phone]* Subjective: no issue Objective: BP 118/68 Pulse 75 Temp 37 ?C (98.6 ?F) (Oral) Resp 13 Ht 167.6 cm (5' 6) Wt 78.8 kg (173 lb 11.6 oz) SpO2 95% BMI 28.04 kg/m2 Intake and Output: 10/22 0700 - 10/23 0659 In: 1859.3 [PO:240; IV:1619.3] Out: 1680 [Urine:1680] CBC Recent Labs 10/23/17 0551 10/22/17 2229 10/22/17 1056 WBC 6.82 8.81 9.29 HB 12.6 12.9 13.0 PLT 301 289 361 BMP Recent Labs 10/23/17 0324 10/21/17 1750 NA 139 141 K 3.7 3.5 CHLOR 103 101 CO2 21* 25 BUN 6* 11 CREAT 0.66* 0.74 GLUC 87 111* CA 8.3* 9.2 Physical exam: General: Awake, alert and oriented, NAD Respiratory: Non-labored breathing Cardiac: RRR Left leg warm, motor and sensory intact, biphasic PT, faint monophasic DP TYPE AND SCREEN Collected: 10/23/2017 Status: F Source: [facility] 7:11 AM CLINIC OTHER CAMPUS REPOSITORY TYPE CODE TESTS RESULT OUT OF REFERENCE UNITS RANGE LAB %ABR A ABO/RH(D) NEGATIVE LAB % Antibody NEG Screen Performed By: #### TSCR #### [place] [address] CBC AND DIFFERENTIAL Collected: 10/23/2017 Status: F Source: [facility] 5:51 AM [facility]INIC OTHER CAMPUS REPOSITORY TYPE CODE TESTS RESULT OUT OF REFERENCE UNITS RANGE LAB WBC 3.70-11.00 k/uL WBC 6.82 LAB RBC 3.90-5.20 m/uL RBC 4.45 LAB HGB 11.5-15.5 g/dL Hemoglobin 12.6 LAB HCT 36.0-46.0 % Hematocrit 37.7 LAB MCV 80.0-100.0 fL MCV 84.7 LAB MCH 26.0-34.0 pG MCH 28.3 LAB MCHC 30.5-36.0 g/dL MCHC 33.4 LAB RDWCV 11.5-15.0 % RDW-CV 14.1 LAB PLTCT 150-400 k/uL Platelet Count 301 LAB MPV 9.0-12.7 fL MPV 9.8 LAB NEUTS % Neut% 67.3 LAB AANEUT 1.45-7.50 k/uL Abs Neut 4.59 LAB LYMPHS % Lymph% 25.5 LAB AALYMP 1.00-4.00 k/uL Abs Lymph 1.74 LAB MONOS % [place]% 5.7 LAB AAMONO <0.87 k/uL Abs [place] 0.39 LAB EOS % Eosin% 1.2 LAB AAEOS <0.46 k/uL Abs Eosin 0.08 LAB BASOS % Baso% 0.3 LAB AABASO <0.11 k/uL Abs Baso <0.03 LAB DTYP DTYPE Auto Diff Performed By: #### CBCDIF, PTT, FIBCT, PT #### [place] [address] APTT Collected: 10/23/2017 Status: F Source: [facility] 5:51 AM [facility]IN[facility] OTHER CAMPUS REPOSITORY TYPE CODE TESTS RESULT OUT OF RANGE REFERENCE UNITS LAB APTT 23.0-32.4 sec High APTT 36.2 Result Comment: Unfractionated Heparin Therapeutic Ranges: Standard Heparin Nomogram: 53 to 78 seconds (anti-Xa level of 0.3 to 0.7 U/ml) Low Dose/ACS Nomogram: 49 to 67 seconds (anti-Xa level of 0.2 to 0.5 U/ml) Stroke Treatment Nomogram: 49 to 67 seconds (anti-Xa level of 0.2 to 0.5 U/ml) Note: The APTT therapeutic range has been determined for the current lot of laboratory APTT reagent in use throughout the [facility]. Performed By: #### CBCDIF, PTT, FIBCT, PT #### [facility] [address] [place] [address] FIBRINOGEN Collected: 10/23/2017 Status: F Source: [place] 5:51 AM [facility] OTHER [place] REPOSITORY TYPE CODE TESTS RESULT OUT OF REFERENCE UNITS RANGE LAB FIBCT 200-400 mg/dL Low Fibrinogen 149 Result Comment: Result checked and verified Performed By: #### CBCDIF, PTT, FIBCT, PT #### [facility] [address] [place] [id number] PROTIME Collected: 10/23/2017 Status: F Source: [facility] 5:51 AM [facility] REPOSITORY TYPE CODE TESTS RESULT OUT OF RANGE REFERENCE UNITS LAB PSEC 9.7-13.0 sec PT Sec 13.0 LAB INR 0.9-1.3 PT INR 1.3 Result Comment: Vitamin K Antagonist (VKA) Therapeutic Range: INR 2 to 3 (Target INR of 2.5) Note: For patients treated with VKA drugs, such as warfarin, the [employer] 2012 Guideline recommends a therapeutic INR range of 2 to 3 (target INR of 2.5). This recommendation includes high-risk patients with antiphospholipid syndrome with previous arterial or venous thromboembolism, current-generation mechanical or bioprosthetic aortic heart valve replacement. Note: Patients with mechanical aortic valve replacement and additional risk factors for thromboembolic events (atrial fibrillation, previous thromboembolism, LV dysfunction, hypercoagulable conditions) or an older generation mechanical AVR (i.e., ball in-Cage) or any mechanical MVR should have a INR therapeutic range of 2.5 to 3.5 (target INR of 3). Nimesh GH, et al. Chest 2012, 141:7S-47S Dereck RA, et al. [facility] 2017, 70: 252-289 Performed By: #### CBCDIF, PTT, FIBCT, PT #### [facility] [address] [place], [place] [id number] PROGRESS Observed: 10/23/2017 Status: COMPLETED Source: [facility] 5:26 AM [facility]IN[facility] OTHER [place] REPOSITORY HNO ID: [id number] Author: Damien Delgado Service: Critical Care Author Type: Physician Type: Progress Notes Filed: 10/23/2017 11:12 AM Note Text: Critical Care Progress Note Service Date: October 23, 2017 Assessment and Plan: Neil Mendenhall is a 52 year old female, chronic smoker with history of PVD s/p multiple interventions to LLE including baloon angioplasties of the left SFA x 3 and lysis in 2013 for ALI. RSFA angioplasty x 1 (2011) who was admitted on 10/21/2017 for Acute LLE pain. POD #1 Aortobifem angiogram, Right Fem access to Left PT, Lysis. ? Indication for ICU admission: Vascular checks in the setting of the above surgery ? Neuro: - Analgesia: Tylenol, Marzena - Anxiety/Sedation/Itching: Benadryl x1, Hydroxyzine. Abilify - h/o Seizures on lamictal ? Cardiovascular: - Acute LLE on hep, TPA. Plan for Lysis today - HTN Nifedipine - CAD: Statin, ASA81 - ICU monitoring - IV Access: pIV ? Respiratory: - Incentive spirometry ? GI: - Nutrition/Diet: CLD. NPO @MN (Lysis check Tomorrow). ? Renal: (Baseline sCr: 0.74) - Urine output ok. sCr 0.66. Humphries indicated. - IVF NS at 100 - Electrolytes replete Ca, K >4, Phos >3, Mag >2. ? Heme/ID: - Hemoglobin 12.9. No evidence of bleeding. Transfuse for hgb < 7 or if symptomatic - Fibrinogen 605 > 194 > pending - WBC 8.8 - Abx: none - DVT Prophylaxis: IPCs, no SQH ? Endo: - Glucose WNL. ? Wound Care: RLE imobile. - catheter/wire dressing in place ? MSK - Activity Level: Bedrest ? Dispo: SICU ? Plan to be discussed with ICU Staff Dr. Delgado. Mario Koehler MD General Surgery [C]: [phone] [P]: [id number] Date: 10/23/2017 Time: 5:26 AM Subjective: Interval Events: NAEON. Bleeding around catheter site. Exam unchanged Physical Exam: BP 131/64 Pulse 75 Temp 37.2 ?C (99 ?F) (Oral) Resp 17 Ht 167.6 cm (5' 6) Wt 78.8 kg (173 lb 11.6 oz) SpO2 91% BMI 28.04 kg/m2 GENERAL: Well appearing 52 year old female in no distress NEURO: AAOx3, GCS HEENT: Atraumatic CHEST: nonlabored breathing on RA. NL rate and rhythm ABDOMEN: soft, non-distended, non-tender EXTREMITIES: Warm well perfused, no deformities. Lysis catheter in place. LLE toes with good cap refill, cyanosis improved Pulses/Signals: Radial Dorsalis Pedis Posterior Tibial Peroneal Right Palpable +2 Biphasic Signal Biphasic Signal Not assessed Left Palpable +2 Monophasic Signal Biphasic Signal Biphasic Signal Labs: CBC, BMP, MG, PHOS Recent Labs 10/23/17 0324 10/22/17 2229 10/22/17 1056 10/22/17 0422 10/21/17 1750 04/23/14 0712 04/22/14 0030 04/21/14 1220 04/21/14 0400 04/20/14 2040 WBC -- 8.81 9.29 9.25 8.67 < > 8.99 8.45 10.13 7.92 11.25* HB -- 12.9 13.0 12.8 13.3 < > 10.5* 10.1* 10.9* 10.9* 11.7 HCT -- 38.3 38.8 38.0 39.0 < > 31.5* 30.9* 33.3* 33.4* 33.8* PLT -- 289 361 390 415* < > 334 284 292 313 291 NA 139 -- -- -- 141 -- 140 138 137 140 139 K 3.7 -- -- -- 3.5 -- 4.1 3.7 4.1 3.8 3.9 CHLOR 103 -- -- -- 101 -- 103 106 105 107 106 CO2 21* -- -- -- 25 -- 25 24 23 23 21* BUN 6* -- -- -- 11 -- 5* 6* 7* 7* 9 CREAT 0.66* -- -- -- 0.74 -- 0.85 0.73 0.81 0.87 0.96 GLUC 87 -- -- -- 111* -- 83 159* 97 146* 110* CA 8.3* -- -- -- 9.2 -- 8.8 8.0* 8.3* 8.4* 8.8 MG 2.1 -- -- -- -- -- -- -- 2.1 2.2 2.1 P 3.1 -- -- -- -- -- -- -- 3.1 3.5 3.1 < > = values in this interval not displayed. Liver Function, Amylase, AND Lipase Recent Labs 04/20/14 2040 01/15/11 1712 TPROT 7.0 7.6 ALB 3.6 4.48 ALT 26 -- AST 16 -- ALKPHOS 77 -- TBILI 0.3 -- Coags Recent Labs 10/22/17 2229 10/22/17 1056 10/22/17 0100 10/21/17 1750 04/24/14 0514 APTT 39.9* 98.5* 51.8* 25.7 60.9* INR 1.2 1.0 -- 1.0 1.0 Intake and Output: Date 10/22/17 0700 - 10/23/17 0659 10/23/17 0700 - 10/24/17 0659 Shift 8476-4169 1743-6287 5389-6806 24 Hour Total 8271-5731 5678-2547 8313-1454 24 Hour Total I N T A K E PO 120 120 240 PO 120 120 240 IV 939 680.3 1619.3 NS 0.9% 939 939 Heparin IV 216.3 216.3 TPA 464 464 Shift Total 1059 800.3 1859.3 O U T P U T Urine 400 757 616 1615 Void (ml) 400 608 371 9659 # of BMs Number of BMs 0 x 0 x 0 x Shift Total 400 955 054 9662 Weight (kg) 76.9 76.9 78.8 78.8 78.8 78.8 78.8 78.8 Current Medications: Current hospital medications: lamoTRIgine 200 mg tab(s) (LaMICtal) 200 mg ORAL DAILY simvastatin 10 mg tab(s) (ZOCOR) 10 mg ORAL AT BEDTIME ARIPiprazole 20 mg tab(s) (ABILIFY) 20 mg ORAL DAILY aspirin 81 mg chewable tab(s) 81 mg ORAL DAILY NIFEdipine XL 30 mg tab(s) (ADALAT CC) 30 mg ORAL DAILY NaCl 0.9% iv infusion 100 mL/hr INTRAVENOUS CONTINUOUS alteplase 10 mg in NaCl 0.9% 250 mL (ACTIVASE) 0.5 mg/hr INTRAVENOUS CONTINUOUS alteplase 10 mg in NaCl 0.9% 250 mL (ACTIVASE) 0.5 mg/hr INTRAVENOUS CONTINUOUS heparin iv infusion 25,000 units in 0.45% NaCl 250 mL PREMIX 500 Units/hr INTRA-ARTERIAL CONTINUOUS acetaminophen 650 mg tab(s) (TYLENOL) 650 mg ORAL q 6 H oxyCODONE IR 5-10 mg tab(s) (ROXICODONE) 5-10 mg ORAL q 6 H PRN hydrOXYzine pamoate 25 mg cap(s) (VISTARIL) 25 mg ORAL q 6 H PRN HYDROmorphone STUDY ABROAD ADVISOR 0.5 mg/mL in NaCl 0.9% 100 mL INTRAVENOUS CONTINUOUS hydrALAZINE 10-20 mg injection (APRESOLINE) 10-20 mg INTRAVENOUS q 6 H PRN Prior to Admission Medications: NIFEdipine ER (PROCARDIA XL) 30 mg 24 hr tablet Take 1 tablet by mouth once daily. Cholecalciferol, Vitamin D3, 5,000 unit cap Take 5,000 Units by mouth once daily. warfarin (COUMADIN) 3 mg tablet Take 3 mg by mouth daily as directed. aspirin 81 mg chewable tablet Take 1 tablet by mouth once daily. pravastatin (PRAVACHOL) 20 mg tablet Take 20 mg by mouth once daily. lamoTRIgine (LAMICTAL) 200 mg tablet Take 200 mg by mouth once daily. aripiprazole(ABILIFY 20 MG TAB) Take one(1) tablet daily. oxyCODONE-acetaminophen (PERCOCET) 5-325 mg tablet Take 1- 2 tablets by mouth every 4 hours as needed for Pain. nitroglycerin (NITRO-BID) 2 % ointment Apply 0.5 g as directed twice daily. Apply in the morning and remove at night warfarin (COUMADIN) 4 mg tablet Take 4 mg by mouth daily as directed. As directed pregabalin (LYRICA) 225 mg capsule Take 225 mg by mouth twice daily. [facility] STAFF PHYSICIAN SUPERVISING RESIDENT I have reviewed the progress note obtained and documented by the resident. I personally participated in the mcadams components. I have discussed the case and the plan and management of the patient's care with the ICU team AND Vascular Surgery. IMPRESSION AND PLAN: As annotated in the above note. Lysis completed this morning, sheath removed. Will continue to monitor in the ICU for a few more hours post-sheath removal. If no problems, then transfer to surgical floor later today. SIGNATURE: Damien Delgado MD DATE of SERVICE: 10/23/2017 TIME of SERVICE: 11:10 AM BASIC METABOLIC PANL Collected: 10/23/2017 Status: F Source: [facility] 3:24 AM [facility]INIC OTHER [place] REPOSITORY TYPE CODE TESTS RESULT OUT OF REFERENCE UNITS RANGE LAB GLU 65-100 mg/dL Glucose 87 LAB BUN 8-25 mg/dL Low BUN 6 LAB CRET 0.70-1.40 mg/dL Low Creatinine 0.66 LAB NA 132-148 mmol/L Sodium 139 LAB K 3.5-5.0 mmol/L Potassium 3.7 LAB CL 98-110 mmol/L Chloride 103 LAB CO2 23-32 mmol/L Low CO2 21 LAB AGAP 9-18 mmol/L Anion Gap 15 LAB CA 8.5-10.5 mg/dL Low Calcium, Total 8.3 LAB GFRAA >60 eGFR- >60 Amer. LAB GFRNAA >60 . eGFR-All Other Races >60 Performed By: #### BMP, MG1, PHOS #### [place] [id number] MAGNESIUM Collected: 10/23/2017 Status: F Source: [place] 3:24 AM [facility] REPOSITORY TYPE CODE TESTS RESULT OUT OF REFERENCE UNITS RANGE LAB MG 1.7-2.6 mg/dL Magnesium 2.1 Performed By: #### BMP, MG1, PHOS #### [id number] PHOSPHORUS Collected: 10/23/2017 Status: F Source: [place] 3:24 AM [facility] REPOSITORY TYPE CODE TESTS RESULT OUT OF REFERENCE UNITS RANGE LAB PHOS 2.5-4.5 mg/dL Phosphorus 3.1 Performed By: #### BMP, MG1, PHOS #### [place] [id number] OPERATIVE NO Observed: 10/23/2017 Status: COMPLETED Source: [place] 12:00 AM [facility] OTHER [place] REPOSITORY HNO ID: [id number] Author: Herson Ramírez Service: Vascular Surgery Author Type: Physician Type: Operative Report Filed: 11/10/2017 3:45 PM Note Text: [facility] - Operative Report NEIL MENDENHALL : 1965 AGE: 52 SEX: F ACCTNUM: [id number] [facility]: [facility] LOCATION: [facility] ATTENDING PHYSICIAN: Benita Torres M.D. DATE OF PROCEDURE: 10/23/2017 PREOPERATIVE DIAGNOSIS: Severe peripheral vascular disease of left lower extremity. POSTOPERATIVE DIAGNOSIS: Same. NAME OF OPERATION: 1. Percutaneous vascular stent placement of left femoral popliteal artery with angioplasty. 2. Percutaneous transluminal angioplasty of distal left posterior tibial artery - multiple. 3. Angiogram via existing catheter for followup of thrombolytic therapy. SURGEON: Herson Nam M.D. TRUST ADMINISTRATOR: NONE ANESTHESIA: Local with sedation. START TIME: 0851 hours. END TIME: 1017 hours. INDICATIONS: This is a pleasant 52-year-old woman undergoing thrombolytic therapy for [id number] peripheral vascular disease of the left lower extremity. Her limb remains viable overnight, but with a very weak Doppler signal at the ankle. She is taken to the Angiography suite for followup of thrombolytic therapy and further intervention if required. The risks, benefits, and alternatives of treatment were discussed. The patient understood and agreed to proceed. FINDINGS: The left common femoral and deep femoral arteries are widely patent. The area of occlusion of the left superficial femoral artery remains occluded with a high-grade stenosis in the upper third of the thigh. Partial thrombus resolution has occurred. The popliteal artery above and below the knee is widely patent. Primary runoff is through the posterior tibial artery to the ankle. The anterior tibial artery appears to occlude in the upper third of the calf and the peroneal artery in the mid calf. Distal images suggest some degree of high-grade stenosis versus partial thromboembolic disease of the posterior tibial artery near the ankle with only faint flow beyond this. After balloon angioplasty of the involved area, complete resolution of the distal posterior tibial artery disease is noted without evidence of arterial dissection or embolization. After angioplasty and stenting of the femoropopliteal disease, there is complete resolution of preexisting occlusive disease, no evidence of dissection or thromboembolic complication, and the patient had a palpable posterior tibial pulse at the ankle. At the end of the procedure, the patient also had strongly audible dorsalis pedis Doppler signal and warm pink toes with brisk capillary refill, this being much improved compared to pre-intervention. PROCEDURE: The patient was placed on the angiography table in a supine position. The existing wire, catheter, and sheath devices were prepped and draped in sterile fashion. Angiogram via the existing catheter and wire was accomplished. The patient was fully heparinized with additional heparin being given throughout the procedure to maintain a therapeutic ACT value. A 0.014-inch pT2 wire was passed under fluoroscopy to the distal posterior tibial artery level. A 0.014-inch Quick- Cross catheter was used to assist with crossing of the distal posterior tibial artery disease into the foot. A test injection of contrast confirmed appropriate location of the catheter below the occlusive disease process with a patent medial and lateral plantar artery system and good collateralization around the pedal arch. Balloon angioplasty of the posterior tibial artery disease was initially performed with a Lesage 2 x 40 mm balloon angioplasty catheter. A significant improvement was noted with mild irregularity seen but good flow distally. Next, the superficial femoral artery occlusive disease was pre-dilated with a [employer] Bertrand 5 x 60 mm balloon angioplasty catheter. Significant residual recoil and stenosis were noted at one point such that stenting was felt to be most appropriate. Thus, a NeuroPace Zilver PTX 7 x 80 mm stent was placed and deployed. This was then post dilated with a 6 x 80 mm Bertrand balloon with excellent result noted. Completion arteriogram revealed wide patency of the femoral popliteal system, no change in the trifurcation area with wide patency proximally, and no change in the anterior tibial or peroneal perfusion distally. The posterior tibial artery was patent to the ankle where at least Moderately severe irregularity and stenosis were noted, though improved compared to initially. At this point, I elected to use an AngioSculpt balloon in this location with a long slow steady inflation being performed. Completion angiogram revealed a technically excellent result with no evidence of residual stenosis, dissection, or distal embolization into the foot. A palpable foot pulse and brisk pink capillary refill of the toes was now identified, suggesting a clinically significant improvement of distal perfusion. At this point, the procedure was terminated. The existing sheath was retracted over the aortic bifurcation using a 0.035-inch Gerber Advantage wire. Angiogram of the right femoral and iliac system was performed showing satisfactory anatomy for a closure device. The existing sheath was then removed and a StarClose 6-[place] Islander device deployed and hemostasis achieved. A sterile dressing was applied. The patient tolerated the procedure well. Herson Nam M.D. Vascular Surgery DM:[id number] /[id number] cc:Benita Torres M.D. CBC Collected: 10/22/2017 Status: F Source: [place] 10:29 PM [facility] REPOSITORY TYPE CODE TESTS RESULT OUT OF REFERENCE UNITS RANGE LAB WBC 3.70-11.00 k/uL WBC 8.81 LAB RBC 3.90-5.20 m/uL RBC 4.54 LAB HGB 11.5-15.5 g/dL Hemoglobin 12.9 LAB HCT 36.0-46.0 % Hematocrit 38.3 LAB MCV 80.0-100.0 fL MCV 84.4 LAB MCH 26.0-34.0 pG MCH 28.4 LAB MCHC 30.5-36.0 g/dL MCHC 33.7 LAB RDWCV 11.5-15.0 % RDW-CV 14.0 LAB PLTCT 150-400 k/uL Platelet Count 289 LAB MPV 9.0-12.7 fL MPV 10.1 Performed By: #### CBC, PTT, FIBCT, PT #### [place] [address] APTT Collected: 10/22/2017 Status: F Source: [place] 10:29 PM [facility] REPOSITORY TYPE CODE TESTS RESULT OUT OF RANGE REFERENCE UNITS LAB APTT 23.0-32.4 sec High APTT 39.9 Result Comment: Unfractionated Heparin Therapeutic Ranges: Standard Heparin Nomogram: 53 to 78 seconds (anti-Xa level of 0.3 to 0.7 U/ml) Low Dose/ACS Nomogram: 49 to 67 seconds (anti-Xa level of 0.2 to 0.5 U/ml) Stroke Treatment Nomogram: 49 to 67 seconds (anti-Xa level of 0.2 to 0.5 U/ml) Note: The APTT therapeutic range has been determined for the current lot of laboratory APTT reagent in use throughout the [facility]. Performed By: #### CBC, PTT, FIBCT, PT #### [id number] [place] [address] FIBRINOGEN Collected: 10/22/2017 Status: F Source: [place] 10:29 PM [facility] OTHER [place] REPOSITORY TYPE CODE TESTS RESULT OUT OF REFERENCE UNITS RANGE LAB FIBCT 200-400 mg/dL Low Fibrinogen 194 Performed By: #### CBC, PTT, FIBCT, PT #### [place] [address] PROTIME Collected: 10/22/2017 Status: F Source: [place] 10:29 PM [facility] REPOSITORY TYPE CODE TESTS RESULT OUT OF RANGE REFERENCE UNITS LAB PSEC 9.7-13.0 sec PT Sec 12.7 LAB INR 0.9-1.3 PT INR 1.2 Result Comment: Vitamin K Antagonist (VKA) Therapeutic Range: INR 2 to 3 (Target INR of 2.5) Note: For patients treated with VKA drugs, such as warfarin, the [employer] 2012 Guideline recommends a therapeutic INR range of 2 to 3 (target INR of 2.5). This recommendation includes high-risk patients with antiphospholipid syndrome with previous arterial or venous thromboembolism, current-generation mechanical or bioprosthetic aortic heart valve replacement. Note: Patients with mechanical aortic valve replacement and additional risk factors for thromboembolic events (atrial fibrillation, previous thromboembolism, LV dysfunction, hypercoagulable conditions) or an older generation mechanical AVR (i.e., ball in-Cage) or any mechanical MVR should have a INR therapeutic range of 2.5 to 3.5 (target INR of 3). Nimesh TAVARES, et al. Chest 2012, 141:7S-47S Dereck RA, et al. [facility] 2017, 70: 252-289 Performed By: #### CBC, PTT, FIBCT, PT #### [id number] [place] [address] NURSING PROG Observed: 10/22/2017 Status: COMPLETED Source: [place] 7:52 PM [facility] OTHER [place] REPOSITORY HNO ID: [id number] Author: Kaitlynn Mari) SARAH Michaels Service: Nursing Author Type: Registered Nurse Type: Nursing Progress Note Filed: 10/23/2017 6:44 AM Note Text: Nursing Progress Note Patient Name: Neil Mendenhall [facility] [place] [address] Note: 190: Bedside report received from SARAH Mccoy. 1936: Dr. Koehler paged regarding hypertension and possible clinician doses. 1956: Dr. Koehler at bedside; PRN order for hydralazine received. Dr. Koehler is okay for q12h labs. 1999: Full assessment completed; see documentation. q1h vascular/right groin checks continue. Right groin dressing remains clean, dry, and intact. Patient reports pain is better controlled. 2026: Dr. Koehler paged regarding my inability to dopple the left DP signal. 2047: Dr. Koehler at bedside; able to dopple a signal in the right DP easily. The foot appears warmer and has better color. Rooke boot and bearhugger in use. 2099: Patient used bedpan and voided 5 cc; preventative allevyn applied to the coccyx. 2141: Bladder scan reveals 870 ml retained urine. Patient states she wants to use the bedpan one more time. 2218: Dr. Koehler made aware of fleeting DP pulse. 2223: Dr. Jo at bedside. Aware of fleeting DP pulse and doppled PT signal. Okay to continue to monitor. 2350: Dr. Koehler made aware of drop in fibrinogen. Will continue to monitor at this time. 0000: Reassessment completed; see documentation. 0020: HS rounds have been completed with Dr. Koehler. AM labs ordered. Updated on new shadowing on the right groin dressing. Also, made aware of the patient's vascular assessment. 0240: Bloody drainage noted on the right groin dressing. 0400: Reassessment completed; see documentation. 0508: Dr. Koehler made aware of increased right groin bleeding. Stat coags ordered. 0531: Dr. Koehler made aware of K of 3.7. 0551: Lab at bedside for coags. 0552: Patient placed on 2L O2 NC. 0642: Dr. Koehler made aware of fibrinogen of 149. Awaiting orders. 0700: Bedside report has been given to the day shift RN. This note was completed by: Kaitlynn Michaels RN HISTORY PHYSICAL Observed: 10/22/2017 Status: COMPLETED Source: [place] 11:56 AM [facility] OTHER CAMPUS REPOSITORY O ID: [id number] Author: Damien Delgado Service: Critical Care Author Type: Physician Type: HANDP Filed: 10/22/2017 1:22 PM Note Text: . CRITICAL CARE HISTORY AND PHYSICAL EXAMINATION PLEASE DO NOT REMOVE FROM THE CHART OR MODIFY PRINTED COPY Patient Name: Neil Mendenhall PRIMARY CARE PHYSICIAN: Kathryn Galvan MD CHIEF COMPLAINT: Acute LLE Limb Ischemia HPI: Neil Mendenhall is a 52 year old female, chronic smoker with history of PVD s/p multiple interventions to LLE including baloon angioplasties of the left SFA x 3 and lysis in 2013 for ALI. RSFA angioplasty x 1 (2011) who was admitted on 10/21/2017 for Acute LLE pain. POD #0 Aortobifem angiogram, Right Fem access to Left PT, Lysis. PAST MEDICAL HISTORY: PAST MEDICAL HISTORY Diagnosis Date - Carotid artery disease (HCC) PAST SURGICAL HISTORY: PAST SURGICAL HISTORY Procedure Laterality Date - ANGIO TRANSLUM BALL ANGIO ANGELO 2008 [id number] FAMILY HISTORY: No family history on file. SOCIAL HISTORY: Social History Substance Use Topics - Smoking status: Former Smoker Packs/day: 0.50 Years: 25.00 Types: Cigarettes Quit date: 09/01/2009 - Smokeless tobacco: Never Used Comment: currently using electronic cigarette - Alcohol use No MEDICATIONS: Prior to Admission Medications: NIFEdipine ER (PROCARDIA XL) 30 mg 24 hr tablet Take 1 tablet by mouth once daily. Cholecalciferol, Vitamin D3, 5,000 unit cap Take 5,000 Units by mouth once daily. warfarin (COUMADIN) 3 mg tablet Take 3 mg by mouth daily as directed. aspirin 81 mg chewable tablet Take 1 tablet by mouth once daily. pravastatin (PRAVACHOL) 20 mg tablet Take 20 mg by mouth once daily. lamoTRIgine (LAMICTAL) 200 mg tablet Take 200 mg by mouth once daily. aripiprazole(ABILIFY 20 MG TAB) Take one(1) tablet daily. oxyCODONE-acetaminophen (PERCOCET) 5-325 mg tablet Take 1- 2 tablets by mouth every 4 hours as needed for Pain. nitroglycerin (NITRO-BID) 2 % ointment Apply 0.5 g as directed twice daily. Apply in the morning and remove at night warfarin (COUMADIN) 4 mg tablet Take 4 mg by mouth daily as directed. As directed pregabalin (LYRICA) 225 mg capsule Take 225 mg by mouth twice daily. Current hospital medications: lamoTRIgine 200 mg tab(s) (LaMICtal) 200 mg ORAL DAILY simvastatin 10 mg tab(s) (ZOCOR) 10 mg ORAL AT BEDTIME ARIPiprazole 20 mg tab(s) (ABILIFY) 20 mg ORAL DAILY aspirin 81 mg chewable tab(s) 81 mg ORAL DAILY NIFEdipine XL 30 mg tab(s) (ADALAT CC) 30 mg ORAL DAILY NaCl 0.9% iv infusion 100 mL/hr INTRAVENOUS CONTINUOUS alteplase 10 mg in NaCl 0.9% 250 mL (ACTIVASE) 0.5 mg/hr INTRAVENOUS CONTINUOUS alteplase 10 mg in NaCl 0.9% 250 mL (ACTIVASE) 0.5 mg/hr INTRAVENOUS CONTINUOUS [MAR Hold due to Transfer] heparin iv infusion 25,000 units in 0.45% NaCl 250 mL PREMIX 500 Units/hr INTRA-ARTERIAL CONTINUOUS acetaminophen 650 mg tab(s) (TYLENOL) 650 mg ORAL q 6 H oxyCODONE IR 5-10 mg tab(s) (ROXICODONE) 5-10 mg ORAL q 6 H PRN morphine 4 mg injection 4 mg INTRAVENOUS q 2 H PRN hydrOXYzine pamoate 25 mg cap(s) (VISTARIL) 25 mg ORAL q 6 H PRN ALLERGIES: ALLERGIES Allergen Reactions - Horizant [Gabapenti* Mental Status Change - Wellbutrin [Bupropi* Other: See Comments Took med on Wednesday Woke up 3 days later in hospital COMPLETE REVIEW OF SYSTEMS: GENERAL: No weight loss, malaise or fevers. HEENT: Negative for new headaches, vision changes, dysphagia RESPIRATORY: Negative for cough, wheezing or shortness of breath. CARDIOVASCULAR: Negative for chest pain GI: No change in bowel habits, hematochezia, melena, nausea, vomiting : No history of dysuria MUSCULOSKELETAL: SEE HPI SKIN: Negative for new lesions HEMATOLOGY/LYMPHOLOGY: Negative for prolonged bleeding NEURO: No altered mental status PHYSICAL EXAM: BP 148/72 Pulse (!) 51 Temp 37 ?C (98.6 ?F) Resp 18 Ht 167.6 cm (5' 6) Wt 76.9 kg (169 lb 8 oz) SpO2 99% BMI 27.36 kg/m2 General appearance: uncomfortable appearing, alert, in no mild distress, well-hydrated, well nourished Neuro: Awake, alert, Sensation grossly intact. Skin: skin color, texture, turgor normal, no suspicious rashes or lesions HEENT: Normocephalic, EOMI, mucosa moist Lungs: clear to auscultation, no wheezing or rhonchi Heart: RRR without murmur, gallop, or rubs. Abdomen: Abdomen soft, non-tender, non-distended. Lines/Tubes/Drains: Lysis catheter/dressing in place in right groin Pulses/Signals: Radial Dorsalis Pedis Posterior Tibial Right Palpable +2 Biphasic Signal Triphasic Signal Left Palpable +2 Biphasic Signal Triphasic Signal DATA: Laboratory:CBC, Coags, BMP, Mg, Phos Recent Labs 10/22/17 1056 10/22/17 0422 10/22/17 0100 10/21/17 1750 WBC 9.29 9.25 -- 8.67 HB 13.0 12.8 -- 13.3 HCT 38.8 38.0 -- 39.0 PLT 361 390 -- 415* INR 1.0 -- -- 1.0 APTT 98.5* -- 51.8* 25.7 NA -- -- -- 141 K -- -- -- 3.5 CHLOR -- -- -- 101 CO2 -- -- -- 25 BUN -- -- -- 11 CREAT -- -- -- 0.74 GLUC -- -- -- 111* CA -- -- -- 9.2 Liver Function, Amylase, AND Lipase ABGs No results found for: LACT Radiology: Reviewed ASSESSMENT/PLAN: Neil Mendenhall is a 52 year old female, chronic smoker with history of PVD s/p multiple interventions to LLE including baloon angioplasties of the left SFA x 3 and lysis in 2014 for ALI. RSFA angioplasty x 1 (2011) who was admitted on 10/21/2017 for Acute LLE pain. POD #0 Aortobifem angiogram, Right Fem access to Left PT, Lysis. Indication for ICU admission: Vascular checks in the setting of the above surgery Neuro: - Analgesia: Tylenol, Marzena - Anxiety/Sedation/Itching: Benadryl x1, Hydroxyzine. Abilify - h/o Seizures on lamictal Cardiovascular: - Acute LLE on hep, TPA - HTN Nifedipine - CAD: Statin, ASA81 - ICU monitoring - IV Access: pIV Respiratory: - Incentive spirometry GI: - Nutrition/Diet: CLD. NPO @MN (Lysis check Tomorrow). Renal: (Baseline sCr: 0.74) - Urine output ok. sCr 0.74. Humphries indicated. - IVF NS at 100 - Electrolytes replete Ca, K >4, Phos >3, Mag >2. Heme/ID: - Hemoglobin ok. No evidence of bleeding. Transfuse for hgb < 7 or if symptomatic - WBC trend - Abx: none - DVT Prophylaxis: IPCs, Endo: - Glucose WNL. Wound Care: RLE imobile. - catheter/wire dressing in place MSK - Activity Level: Bedrest Dispo: SICU Plan to be discussed with ICU Staff Dr. Delgado. Mario Koehler MD General Surgery [C]: [phone] [P]: [id number] Date: 10/22/2017 Time: 11:57 AM [facility] STAFF PHYSICIAN SUPERVISING RESIDENT I have reviewed the progress note obtained and documented by the resident. I personally participated in the mcadams components. I have discussed the case and the plan and management of the patient's care with the ICU team AND Vascular Surgery. IMPRESSION AND PLAN: As annotated in the above note. Generally satisfactory postprocedure course so far. -perfusion clinically adequate -no evidence of bleeding -pain control only fair (reperfusion pain) -patient reports foot itching--trying Benadryl Continue close ICU monitoring AND frequent neurovascular checks. SIGNATURE: Damien Delgado MD DATE of SERVICE: 10/22/2017 TIME of SERVICE: 1:00 PM CBC Collected: 10/22/2017 Status: F Source: [place] 10:56 AM [facility] OTHER CAMPUS REPOSITORY TYPE CODE TESTS RESULT OUT OF REFERENCE UNITS RANGE LAB WBC 3.70-11.00 k/uL WBC 9.29 LAB RBC 3.90-5.20 m/uL RBC 4.53 LAB HGB 11.5-15.5 g/dL Hemoglobin 13.0 LAB HCT 36.0-46.0 % Hematocrit 38.8 LAB MCV 80.0-100.0 fL MCV 85.7 LAB MCH 26.0-34.0 pG MCH 28.7 LAB MCHC 30.5-36.0 g/dL MCHC 33.5 LAB RDWCV 11.5-15.0 % RDW-CV 14.1 LAB PLTCT 150-400 k/uL Platelet Count 361 LAB MPV 9.0-12.7 fL MPV 10.2 Performed By: #### CBC, PTT, FIBCT, PT #### [place] [address] APTT Collected: 10/22/2017 Status: F Source: [place] 10:56 [facility] REPOSITORY TYPE CODE TESTS RESULT OUT OF RANGE REFERENCE UNITS LAB APTT 23.0-32.4 sec High APTT 98.5 Result Comment: Unfractionated Heparin Therapeutic Ranges: Standard Heparin Nomogram: 53 to 78 seconds (anti-Xa level of 0.3 to 0.7 U/ml) Low Dose/ACS Nomogram: 49 to 67 seconds (anti-Xa level of 0.2 to 0.5 U/ml) Stroke Treatment Nomogram: 49 to 67 seconds (anti-Xa level of 0.2 to 0.5 U/ml) Note: The APTT therapeutic range has been determined for the current lot of laboratory APTT reagent in use throughout the [facility]. Performed By: #### CBC, PTT, FIBCT, PT #### [place] [address] FIBRINOGEN Collected: 10/22/2017 Status: F Source: [place] 10:56 [facility] REPOSITORY TYPE CODE TESTS RESULT OUT OF REFERENCE UNITS RANGE LAB FIBCT 200-400 mg/dL High Fibrinogen 605 Performed By: #### CBC, PTT, FIBCT, PT #### [place] [address] PROTIME Collected: 10/22/2017 Status: F Source: [place] 10:56 AM [facility] REPOSITORY TYPE CODE TESTS RESULT OUT OF RANGE REFERENCE UNITS LAB PSEC 9.7-13.0 sec PT Sec 10.8 LAB INR 0.9-1.3 PT INR 1.0 Result Comment: Vitamin K Antagonist (VKA) Therapeutic Range: INR 2 to 3 (Target INR of 2.5) Note: For patients treated with VKA drugs, such as warfarin, the [employer] 2012 Guideline recommends a therapeutic INR range of 2 to 3 (target INR of 2.5). This recommendation includes high-risk patients with antiphospholipid syndrome with previous arterial or venous thromboembolism, current-generation mechanical or bioprosthetic aortic heart valve replacement. Note: Patients with mechanical aortic valve replacement and additional risk factors for thromboembolic events (atrial fibrillation, previous thromboembolism, LV dysfunction, hypercoagulable conditions) or an older generation mechanical AVR (i.e., ball in-Cage) or any mechanical MVR should have a INR therapeutic range of 2.5 to 3.5 (target INR of 3). Nimesh GH, et al. Chest 2012, 141:7S-47S Dereck RA, et al. [facility] 2017, 70: 252-289 Performed By: #### CBC, PTT, FIBCT, PT #### [place] [address] NURSING PROG Observed: 10/22/2017 Status: COMPLETED Source: [place] 10:30 AM [facility] REPOSITORY HNO ID: [id number] Author: Nadine Kraus (Rn) SARAH Puente Service: (none) Author Type: Registered Nurse Type: Nursing Progress Note Filed: 10/22/2017 8:18 PM Note Text: Nursing Progress Note Patient Name: Neil Mendenhall Patient Location: -SICU01/FV-ICU-[id number] Daily Note: 1020 Patient arrived from mill labor supervisor. Patient is awake and alert, conversing with staff. Patient connected to monitor. Full assessment to follow. 1050 Patient's sister at bedside 1055 Strategic Debriefing Officer at bedside to draw fibrinogen and cbc 1200 Dr. Torres at bedside, notified of patients itching. Doppled signals in left foot in his presence. 1208 Benadryl IV given for itching 1220 Pt reports some relief from itching in left leg. 1415 Difficulty in finding left lower extremity signals, toes appear more pale and purple and cool. Patient reports numbness and pain, patient is able to wiggle toes. Drs. Koehler and Sandy notified and are at the bedside. Warm blanket placed over left leg. 1440 Dr. Gamino at bedside to assess foot and pulses. Weak signals found. New order for Rooke boots. 1740 Dr. Nam at bedside to assess patient. Nurse explained that foot appears more cool and dusky at times and warmer and pinker at other vascular checks. Rooke boot and warming blanket in place to try to keep foot warm. Dr Nam requests STUDY ABROAD ADVISOR pain control for this patient. 1915 Report to oncoming RN. This note was completed by: Nadine Puente, SARAH NURSING PROG Observed: 10/22/2017 Status: COMPLETED Source: [place] 10:10 AM CL[facility]IC OTHER CAMPUS REPOSITORY HNO ID: [id number] Author: Linda Roberts (Rn) SARAH Chase Service: (none) Author Type: Registered Nurse Type: Nursing Progress Note Filed: 10/22/2017 10:12 AM Note Text: Nursing Progress Note Patient Name: Neil Mendenhall Patient [id number] Daily Note: Pt alert and oriented, heparin gtt infulsing, NSS started per order. NPO since 1800 last night. Patient's sister Kathryn at bedside, supportive. All updated on POC. 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 Notified by mill labor supervisor pt tranferred to unit- all belongings in [id number] sent to ICU with PCNA. This note was completed by: Linda Chase RN BRIEF OP NOT Observed: 10/22/2017 Status: COMPLETED Source: [place] 9:53 AM [facility] REPOSITORY HNO ID: [id number] Author: Ada (Jamilah) Erin Service: Thoracic Surgery Author Type: Resident Type: Brief Op Note Filed: 10/22/2017 10:01 AM Note Text: BRIEF OPERATIVE / PROCEDURE NOTE LOG ID: [id number] Surgery/Procedure Date: 10/22/2017 Incision/Procedure Start Time: Incision Close/Procedure End Time: Surgeon(s)/Proceduralist(s) and Swimmer(s): Surgeon(s) and Role: * Benita Torres - Primary * Ada Khan - Assisting No Additional Staff Procedure(s): Aortobifem angiogram, contralateral access to Left PT, third order, lysis catheter placed. Anesthesia: Procedural Sedation Findings: Blockage at Left PT, faint dopler signal at PT at end of case Estimated Blood Loss: 5 mls Specimens: None Wound Classification: Class 1, operative wound clean, non- traumatic, with no inflammation encountered, no break in technique, gastrointestinal and genitor-urinary tracts not entered Complications: None Pre-Op/Pre-Procedure Diagnosis: acute limb ischemia Post-Op/Post-Procedure Diagnosis: acute limb ischemia SIGNATURE: Ada Khan MD PATIENT NAME: Neil Mendenhall DATE: October 22, 2017 TIME: 9:54 AM PAGER/CONTACT #: CBC Collected: 10/22/2017 Status: F Source: [place] 4:22 AM [facility] REPOSITORY TYPE CODE TESTS RESULT OUT OF REFERENCE UNITS RANGE LAB WBC 3.70-11.00 k/uL WBC 9.25 LAB RBC 3.90-5.20 m/uL RBC 4.56 LAB HGB 11.5-15.5 g/dL Hemoglobin 12.8 LAB HCT 36.0-46.0 % Hematocrit 38.0 LAB MCV 80.0-100.0 fL MCV 83.3 LAB MCH 26.0-34.0 pG MCH 28.1 LAB MCHC 30.5-36.0 g/dL MCHC 33.7 LAB RDWCV 11.5-15.0 % RDW-CV 14.2 LAB PLTCT 150-400 k/uL Platelet Count 390 LAB MPV 9.0-12.7 fL MPV 11.0 Performed By: #### CBC #### [id number] [place] [address] PTT,ANTICOAG THERAPY Collected: 10/22/2017 Status: F Source: [place] 1:00 AM [facility] REPOSITORY TYPE CODE TESTS RESULT OUT OF RANGE REFERENCE UNITS LAB APTT 23.0-32.4 sec High APTT 51.8 Result Comment: Unfractionated Heparin Therapeutic Ranges: Standard Heparin Nomogram: 53 to 78 seconds (anti-Xa level of 0.3 to 0.7 U/ml) Low Dose/ACS Nomogram: 49 to 67 seconds (anti-Xa level of 0.2 to 0.5 U/ml) Stroke Treatment Nomogram: 49 to 67 seconds (anti-Xa level of 0.2 to 0.5 U/ml) Note: The APTT therapeutic range has been determined for the current lot of laboratory APTT reagent in use throughout the [facility]. Performed By: #### PTTAC #### [place] [address] OPERATIVE NO Observed: 10/22/2017 Status: COMPLETED Source: [place] 12:00 AM [facility] HNO ID: [id number] Author: Benita Torres Service: Vascular Surgery Author Type: Physician Type: Operative Report Filed: 10/25/2017 10:52 AM Note Text: [facility] - Operative Report NEIL MENDENHALL : 1965 AGE: 52 SEX: F ACCTNUM: [id number] [place] [employer] SV: [facility] LOCATION: [facility] ATTENDING PHYSICIAN: Benita Torres M.D. DATE OF PROCEDURE: 10/22/2017 PREOPERATIVE DIAGNOSIS: Left leg ischemic pain and discoloration of the third toe with peripheral artery disease. POSTOPERATIVE DIAGNOSIS: Thrombosis of the left SFA. NAME OF OPERATION: 1. Diagnostic abdominal aortogram, bilateral iliac and femoral popliteal angiogram. 2. Contralateral cannulation of the left posterior tibial artery from the right groin to the third order. 3. Placement of lysis catheter and wire in left posterior tibial artery and popliteal superficial femoral artery. SURGEON: Benita Torres M.D. TRUST ADMINISTRATOR: NONE ANESTHESIA: INDICATIONS: The patient is a long-term smoker with history of left leg intervention 2 years ago, balloon angioplasty. Presented in the emergency room, discoloration of the third toe and pain, was found to have occluded SFA. PVR study shows ARELI to 0.6. The scan shows occlusion of the SFA, and the patient experienced pain over the last 2 days. The patient in for diagnostic angio and intervention to manage the occluded lesion and salvage the toe. I explained to the patient procedure in detail. She signed proper consent. PROCEDURE: The patient placed on the x-ray table in the Cardiac catheterization Lab, given mild sedation. Right and left groin prepared and draped in usual fashion. We accessed the right femoral artery with microneedle and introduced #4 sheath. We advanced wire to the abdominal aorta. Pigtail catheter passed over the wire, placed at the abdominal aorta. Formal abdominal aortogram, bilateral iliac, and femoral popliteal runoff down to the ankle. Findings: The aorta and iliac arteries widely patent. The right SFA, right common femoral, superficial femoral popliteal artery patent with 2-vessel runoff including peroneal and posterior tibial artery seen to the foot. There anterior tibial artery is patent but small in the distal portion. On the left side, there is occlusion of the SFA just from its origin. Reconstituted popliteal artery above the knee. The popliteal artery patent. Anterior tibial artery occluded distal to its origin and the main runoff is the posterior tibial artery and peroneal artery, just seen to the ankle. With this finding, I gave the patient the option of to do nothing and there is potential risk on the toe and persistent pain versus doing bypass versus attempt lysis and with the procedure in detail, the risks and benefit was explained. The patient decided to go ahead with the lysis understanding the risks involved including distal embolization. Then with that decision, we proceeded with the interventional part. I used the RIM catheter and introduced the wire to the left superficial femoral artery. We introduced #6 sheath and using a roadmapping technique, I was able to get into the superficial femoral artery successfully. We advanced the catheter distally and the wire advanced with the Quick-Cross catheter to the popliteal artery. Confirming that with the angiogram with contrast make sure we were in the lumen. Following this, angled glide catheter used with the roadmapping technique to select the posterior tibial artery which was done successfully advancing the PT2 wire to the ankle. Following this, we advanced the lysis catheter over the wire with the lysis wire advanced to the posterior tibial artery distally and the lysis catheter, extended from the popliteal artery to the proximal SFA. The tPA will be infused. The patient received during the procedure 5000 units of heparin to have 500 units of heparin through the side sheath. The system was fixed to the skin and the tPA ordered to be initiated immediately. The patient sent to the Intensive Care for overnight lysis infusion. The patient tolerated the procedure well. Benita Torres M.D. Vascular Surgery [id number] /[id number] NURSING PROG Observed: 10/21/2017 Status: COMPLETED Source: [place] 8:27 PM [facility] REPOSITORY HNO ID: [id number] Author: Karlie Mari) SARAH Maddox Service: (none) Author Type: Registered Nurse Type: Nursing Progress Note Filed: 10/21/2017 8:33 PM Note Text: Nursing Progress Note Patient Name: Neil Mendenhall Patient Location: [place] [address]/[place] [address] Transfer Note: Patient transferred into room/unit [facility] in stable condition. Actions taken: Patient belongings with patient, VSS, tele applied, oriented to room, call light in reach. This note was completed by: Karlie Maddox RN ED NOTE Observed: 10/21/2017 Status: COMPLETED Source: [place] 5:56 PM [facility] REPOSITORY HNO ID: [id number] Author: Celina Mari) SARAH Johansen Service: (none) Author Type: Registered Nurse Type: ED Notes Filed: 10/21/2017 5:56 PM Note Text: Vascular at bedside CBC AND DIFFERENTIAL Collected: 10/21/2017 Status: F Source: [place] 5:50 PM [facility] REPOSITORY TYPE CODE TESTS RESULT OUT OF REFERENCE UNITS RANGE LAB WBC 3.70-11.00 k/uL WBC 8.67 LAB RBC 3.90-5.20 m/uL RBC 4.64 LAB HGB 11.5-15.5 g/dL Hemoglobin 13.3 LAB HCT 36.0-46.0 % Hematocrit 39.0 LAB MCV 80.0-100.0 fL MCV 84.1 LAB MCH 26.0-34.0 pG MCH 28.7 LAB MCHC 30.5-36.0 g/dL MCHC 34.1 LAB RDWCV 11.5-15.0 % RDW-CV 14.0 LAB PLTCT 150-400 k/uL Platelet High Count 415 LAB MPV 9.0-12.7 fL MPV 10.2 LAB NEUTS % Neut% 60.0 LAB AANEUT 1.45-7.50 k/uL Abs Neut 5.20 LAB LYMPHS % Lymph% 32.3 LAB AALYMP 1.00-4.00 k/uL Abs Lymph 2.80 LAB MONOS % [place]% 5.9 LAB AAMONO <0.87 k/uL Abs [place] 0.51 LAB EOS % Eosin% 1.6 LAB AAEOS <0.46 k/uL Abs Eosin 0.14 LAB BASOS % Baso% 0.2 LAB AABASO <0.11 k/uL Abs Baso <0.03 LAB DTYP DTYPE Auto Diff Performed By: #### CBCDIF, BMP, PT, PTT #### [place] [address] BASIC METABOLIC PANL Collected: 10/21/2017 Status: F Source: [place] 5:50 PM [facility] OTHER [place] REPOSITORY TYPE CODE TESTS RESULT OUT OF REFERENCE UNITS RANGE LAB GLU 65-100 mg/dL Glucose High 111 LAB BUN 8-25 mg/dL BUN 11 LAB CRET 0.70-1.40 mg/dL Creatinine 0.74 LAB NA 132-148 mmol/L Sodium 141 LAB K 3.5-5.0 mmol/L Potassium 3.5 LAB CL 98-110 mmol/L Chloride 101 LAB CO2 23-32 mmol/L CO2 25 LAB AGAP 9-18 mmol/L Anion Gap 15 LAB CA 8.5-10.5 mg/dL Calcium, Total 9.2 LAB GFRAA >60 eGFR- >60 Amer. LAB GFRNAA >60 . eGFR-All Other Races >60 Performed By: #### CBCDIF, BMP, PT, PTT #### [facility] [address] [place] [address] PROTIME Collected: 10/21/2017 Status: F Source: [place] 5:50 PM [facility] REPOSITORY TYPE CODE TESTS RESULT OUT OF RANGE REFERENCE UNITS LAB PSEC 9.7-13.0 sec PT Sec 10.4 LAB INR 0.9-1.3 PT INR 1.0 Result Comment: Vitamin K Antagonist (VKA) Therapeutic Range: INR 2 to 3 (Target INR of 2.5) Note: For patients treated with VKA drugs, such as warfarin, the [employer] 2012 Guideline recommends a therapeutic INR range of 2 to 3 (target INR of 2.5). This recommendation includes high-risk patients with antiphospholipid syndrome with previous arterial or venous thromboembolism, current-generation mechanical or bioprosthetic aortic heart valve replacement. Note: Patients with mechanical aortic valve replacement and additional risk factors for thromboembolic events (atrial fibrillation, previous thromboembolism, LV dysfunction, hypercoagulable conditions) or an older generation mechanical AVR (i.e., ball in-Cage) or any mechanical MVR should have a INR therapeutic range of 2.5 to 3.5 (target INR of 3). Nimesh TAVARES, et al. Chest 2012, 141:7S-47S Dereck VERA et al. [facility] 2017, 70: 252-289 Performed By: #### CBCDIF, BMP, PT, PTT #### [facility] [address] [place] [address] APTT Collected: 10/21/2017 Status: F Source: [place] 5:50 PM [facility] REPOSITORY TYPE CODE TESTS RESULT OUT OF RANGE REFERENCE UNITS LAB APTT 23.0-32.4 sec APTT 25.7 Result Comment: Unfractionated Heparin Therapeutic Ranges: Standard Heparin Nomogram: 53 to 78 seconds (anti-Xa level of 0.3 to 0.7 U/ml) Low Dose/ACS Nomogram: 49 to 67 seconds (anti-Xa level of 0.2 to 0.5 U/ml) Stroke Treatment Nomogram: 49 to 67 seconds (anti-Xa level of 0.2 to 0.5 U/ml) Note: The APTT therapeutic range has been determined for the current lot of laboratory APTT reagent in use throughout the [facility]. Performed By: #### CBCDIF, BMP, PT, PTT #### [facility] [address] [place] [id number] ED PROV NOTE Observed: 10/21/2017 Status: COMPLETED Source: [place] 5:49 PM [facility] REPOSITORY HNO ID: [id number] Author: Shay Cardenas MD Service: Emergency Medicine Author Type: Physician Type: ED Provider Notes Filed: 10/21/2017 7:24 PM Note Text: ED Provider Note Patient Name: Neil Mendenhall SERVICE DATE: 10/21/17 History Patient presents with: Sent By Md: states had ultrasound done and has superficial venous blockage in left groin area; takes Coumadin and ASA HPI 52-year-old female who has a history of vascular disease who presents for an occlusion of the left too professional femoral arterial artery. She's had increasing left upper leg pain for the past week. Worse over the past 2 days. A throbbing and aching severe pain that feels like her past arterial occlusions. She also states her toes of been blue, the second toe is the most painful. She says I knew I had a blood clot. She is on Coumadin and aspirin. She had an ultrasound done today showing an occlusion. She was instructed by her vascular surgeon to come to the ED. PAST MEDICAL HISTORY Diagnosis Date - Carotid artery disease (HCC) PAST SURGICAL HISTORY Procedure Laterality Date - ANGIO TRANSLUM BALL ANGIO ANGELO 2008 [id number] No family history on file. Social History Social History Main Topics - Smoking status: Former Smoker Packs/day: 0.50 Years: 25.00 Types: Cigarettes Quit date: 09/01/2009 - Smokeless tobacco: Never Used Comment: currently using electronic cigarette - Alcohol use No - Drug use: None - Sexual activity: Not Asked ALLERGIES Allergen Reactions - Horizant [Gabapenti* Mental Status Change - Wellbutrin [Bupropi* Other: See Comments Took med on Wednesday Woke up 3 days later in hospital Review of Systems Constitutional: Negative for chills, fatigue and fever. HENT: Negative for rhinorrhea and sore throat. Eyes: Negative for pain and redness. Respiratory: Negative for cough and shortness of breath. Cardiovascular: Negative for chest pain, palpitations and leg swelling. Gastrointestinal: Negative for abdominal pain, constipation, diarrhea, nausea and vomiting. Genitourinary: Negative for dysuria, frequency and hematuria. Skin: Negative for rash and wound. Allergic/Immunologic: Negative for immunocompromised state. Neurological: Negative for dizziness and headaches. Hematological: Does not bruise/bleed easily. Physical Exam BP 134/66 Pulse 61 Temp (Src) 98.6 (Oral) Resp 18 Ht 5' 6 (1.68m) Wt 168 lb (76.2kg) SpO2 98% BMI 27.13 kg/(m2). Physical Exam Constitutional: She is oriented to person, place, and time. She appears well-developed and well-nourished. No distress. HENT: Head: Normocephalic and atraumatic. Mouth/Throat: Oropharynx is clear and moist. Eyes: Conjunctivae and EOM are normal. Neck: Normal range of motion. Neck supple. No tracheal deviation present. Cardiovascular: Normal rate, regular rhythm, normal heart sounds and intact distal pulses. Exam reveals no gallop and no friction rub. No murmur heard. Pulmonary/Chest: Effort normal and breath sounds normal. No respiratory distress. She has no wheezes. She has no rales. She exhibits no tenderness. Abdominal: Soft. Bowel sounds are normal. She exhibits no distension and no mass. There is no tenderness. There is no rebound and no guarding. Musculoskeletal: Dopplerable pulses of the lower extremities, I am unable to palpate DP or PT pulses of the left lower extremity, I am able to palpate DP and PT pulses on the right, both feet are cool to the touch, toes are cyanotic bilaterally, the second toe of the left is the most cyanotic, patient reports tenderness palpation, there is no blistering, I'm able to palpate femoral pulses bilaterally, no extremity swelling Neurological: She is alert and oriented to person, place, and time. Skin: Skin is warm and dry. No rash noted. She is not diaphoretic. Nursing note and vitals reviewed. Diagnostic Testing ED Labs Ordered and Reviewed - No data to display Procedures Medical Decision Making / ED Course ED Course Records Reviwed Electronic medical record reviewed and significant for hx of arterial clots, ultrasound today showing L femoral artery occulusion LABS - reviewed and interpreted as: INR 1 CBC unremarkable BMP normal Vital signs were reviewed. Triage records were reviewed. Medical records were reviewed. Nursing notes were reviewed and incorporated MEDICATIONS ADMINISTERED ED Medication Administration from 10/21/2017 1717 to 10/21/20171922 Date/Time Order Dose Route Action 10/21/2017 185 heparin iv infusion (STANDARD NOMOGRAM) 25,000 units in NaCl 0.45% 250 mL PREMIX 1,400 Units/hr INTRAVENOUS New Bag 10/21/2017 190 heparin iv infusion (STANDARD NOMOGRAM) 25,000 units in NaCl 0.45% 250 mL PREMIX 0 Units/hr INTRAVENOUS Transferred from ED 10/21/2017 185 heparin nomogram INITIAL BOLUS 6,100 Units INTRAVENOUS Given COURSE/MDM 52 year old presents with Left leg pain with a recent ultrasound showing a left femoral artery occlusion. I was able to Doppler pulses of the left foot. Patient did have reconstitution on the ultrasound. Vascular surgery consulted. Lab work drawn.Patient started on heparin infusion, admitted to vascular surgery. Riley Cardenas MD Encounter Diagnosis ICD-10-CM 1. 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 Condition at time of disposition: stable SIGNATURE: MD Shay Rich MD 10/21/171923 CONSULT Observed: 10/21/2017 Status: COMPLETED Source: [place] 5:48 PM [facility] REPOSITORY O ID: [id number] Author: Elle Gamino Service: Vascular Surgery Author Type: Resident Type: Consults Filed: 10/22/2017 8:10 AM Note Text: [facility] INITIAL CONSULT Service Date: 10/21/2017 Admit Date: 10/21/2017 Service Time: 5:49 PM LOS: 0 Requesting Provider: ED Staff Vascular Physician: Benita Torres MD Subjective Chief Complaint: Left Lower leg pain HPI: Neil Mendenhall is a 52 year old Unavailable female referred by ED staff for an opinion regarding management of left SFA thrombosis . Location: left Quality: acute Severity: moderate Duration: 3-4 days Timing: constant Context: at rest Modifying Factors: improves with rest Ms. Mendenhall is a chronic smoker with a complex vascular history s/p multiple interventions on the left leg for acute limb ischemia , multiple baloon angioplasties of the left SFA x 3 and lysis in 2014 for TEJAS . RSFA angioplasty x 1 in 2011 . She presented today with complaints of left lower limb pain more in the toes for the past 3-4 days with gradual discoloration of the toes over the past few weeks. She continues to smoke. She is on 3mg of coumadin and 81mg of aspirin . PAST MEDICAL HISTORY Diagnosis Date - Carotid artery disease (HCC) PAST SURGICAL HISTORY Procedure Laterality Date - ANGIO TRANSLUM BALL ANGIO ANGELO 2008 [id number] No family history on file. Social History Substance Use Topics - Smoking status: Former Smoker Packs/day: 0.50 Years: 25.00 Types: Cigarettes Quit date: 09/01/2009 - Smokeless tobacco: Never Used Comment: currently using electronic cigarette - Alcohol use No (Not in a hospital admission) Current hospital medications: NaCl 0.45% iv infusion 100 mL/hr INTRAVENOUS CONTINUOUS ALLERGIES Allergen Reactions - Horizant [Gabapenti* Mental Status Change - Wellbutrin [Bupropi* Other: See Comments Took med on Wednesday Woke up 3 days later in hospital COMPLETE REVIEW OF SYSTEMS CONSTITUTIONAL: No weight loss, malaise or fevers. HEENT: Negative for frequent or significant headaches, No changes in hearing or vision, no nose bleeds or other nasal problems. RESPIRATORY: Negative for cough, wheezing, or shortness of breath CARDIOVASCULAR: Negative for chest pain, leg swelling or palpitations GI: Negative for abdominal discomfort, blood in stools or black stools or change in bowel habits. : No history of dysuria, frequency, or incontinence and No difficulty urination, nocturia >1 times per night or hematuria. MUSCULOSKELETAL: Negative for joint pain or swelling, back pain or muscle pain. ENDOCRINE: Negative for cold or heat intolerance, polyuria, polydipsia and goiter HEMATOLOGIC/LYMPHATIC: Negative for prolonged bleeding, bruising easily or swollen nodes. NEUROLOGIC: No history or headaches, syncope, paralysis, seizures or tremors. INTEGUMENTARY: Negative for lesions, rash, and itching. Objective PHYSICAL EXAM Physical Exam Performed Patient Vitals for the past 24 hrs: BP Temp Temp src Pulse Resp SpO2 Height Weight 10/21/17 1719 134/66 37 ?C (98.6 ?F) Oral 61 18 98 % 167.6 cm (5' 6) 76.2 kg (168 lb) No intake or output data in the 24 hours ending 10/21/17 8458 CONSTITUTIONAL: Well developed NEUROLOGIC/PSYCHIATRIC: Oriented to time, place AND person HEENT: PERRLA LUNGS: Clear HEART: Regular rate AND rhythm ABDOMEN: Soft and Non-tender INTEGUMENTARY: Wound - No SURGICAL SITES: None MUSCULOSKELETAL: No deformities Bluish discoloration of the left 1st , 2nd and 3rd toe with delayed capillary refill, neuromotor intact , Pulses/Signals: Carotid Brachial Radial Femoral Popliteal Dorsalis Pedis Posterior Tibial Peroneal Right Palpable +2 Palpable +2 Palpable +2 Palpable +2 Palpable +2 Biphasic Signal Palpable +2 Triphasic Signal Left Palpable +2 Palpable +2 Palpable +2 Palpable +2 Palpable +2 Biphasic Signal (faint) Biphasic Signal Triphasic Signal Does the patient have critical limb ischemia, rest pain, tissue loss or gangrene?: Yes W: Wound/ Clinical Category SVS Grades for rest pain and wounds tissue loss (ulcers and gangrene) 0 (ischemia rest pain) no ulcer, no gangrene I: Ischemia Hemodynamics/perfusion: Measure TP or TcpO2 if ARELI incompressible (> 1.3) SVS Grades: >0.8 FI: Foot Infection SVS Grades: 0 (none, uninfected) none of the following present: local swelling or induration, erythemia > 0.5 to </- 2cm around ulcer, local tenderness or pain,local warmth, purulent discharge WIFI: Wound: 0 Ischemia: 0 Foot Infection: 0 DATA: Laboratory: Radiology: I have personally reviewed the following images/data: PVR and Duplex PVR: IMPRESSION Compared to prior study of 05/25/2016, decrease in left ARELI, previously 0.99. ? RIGHT SIDE ? Resting right ankle brachial index: 1.20 ? Normal ankle brachial index at rest in the right leg. ? Right ankle: Normal at rest. ? Right small vessel disease. ? LEFT SIDE ? Resting left ankle brachial index: 0.69 ? Abnormal ankle brachial index at rest diagnostic of peripheral artery disease. ? Left ankle: Moderate disease at rest. ? Left small vessel disease. Duplex: IMPRESSION Compared to prior study of 02/01/2015, left superficial femoral artery is occluded on today's exam. ? LEFT SIDE External iliac artery distal: plaque noted without evidence of hemodynamically significant stenosis . Common femoral artery : plaque noted without evidence of hemodynamically significant stenosis . Profunda femoral artery proximal: patent . Superficial femoral artery proximal to mid: occluded . Reconstitutes via a collateral at distal thigh. Popliteal artery : patent . Tibioperoneal trunk : plaque noted without evidence of hemodynamically significant ?stenosis . Posterior tibial artery : patent . Peroneal artery distal: occluded . Visualized in segments. Anterior tibial artery proximal: occluded . Unable to visualize mid to distal vessel. Impression/Recommendations Impression: 52 year old female with the aforementioned history presents with possible acute limb ischemia , non threatened limb at the time of exam . Plan: - Admit to Dr. Torres - Keep NPO - Heparin drip ACS Standard nomogram - Resume home meds - for diagnostic angiogram tomorrow , possible intervention , possible lysis - Will discuss with Dr. Torres - Seen and examined with Dr. Jo , Senior resident No problems updated. SIGNATURE: Elle Greenberg PATIENT NAME: Neil Mendenhall DATE: October 21, 2017 TIME: 5:48 PM ED TRIAGE NOTE Observed: 10/21/2017 Status: COMPLETED Source: [place] 5:19 PM [facility] REPOSITORY HNO ID: [id number] Author: Mohamud Cash Service: Emergency Medicine Author Type: Physician Swimmer Type: ED Triage Notes Filed: 10/21/2017 5:24 PM Note Text: ED INTAKE NOTE Patient Name: Neil Mendenhall Service Date: 10/21/17 BRIEF HPI: Pt had outpatient arterial ultrasound LLE today showing the following: Compared to prior study of 02/01/2015, left superficial femoral artery is occluded on today's exam. Hx of bilateral PAD s/p previous angioplasty, currently on coumadin. ? BRIEF EXAM: Awake and Alert [place]AGUE Ambulatory on triage INTAKE WORKUP: Pt roomed SIGNATURE: Mohamud Cash PA-C HOSP Observed: 10/21/2017 Status: COMPLETED Source: [place] 12:00 AM [facility] REPOSITORY Patient:Neil Mendenhall MRN: <[id number]> Height:5' 6(1.676 m) Weight:173 lb 11.6 oz (78.8 kg) Outpatient Medications as of 10/23/17: oxyCODONE-acetaminophen (PERCOCET) 5-325 mg tablet nitroglycerin (NITRO-BID) 2 % ointment NIFEdipine ER (PROCARDIA XL) 30 mg 24 hr tablet Cholecalciferol, Vitamin D3, 5,000 unit cap warfarin (COUMADIN) 4 mg tablet pregabalin (LYRICA) 225 mg capsule warfarin (COUMADIN) 3 mg tablet aspirin 81 mg chewable tablet pravastatin (PRAVACHOL) 20 mg tablet lamoTRIgine (LAMICTAL) 200 mg tablet aripiprazole(ABILIFY 20 MG TAB) Admission/Clinic Administered Medications as of 10/23/17: ondansetron (PF) 4 mg injection (ZOFRAN) lamoTRIgine 200 mg tab(s) (LaMICtal) simvastatin 10 mg tab(s) (ZOCOR) ARIPiprazole 20 mg tab(s) (ABILIFY) aspirin 81 mg chewable tab(s) NIFEdipine XL 30 mg tab(s) (ADALAT CC) NaCl 0.9% iv infusion alteplase 10 mg in NaCl 0.9% 250 mL (ACTIVASE) alteplase 10 mg in NaCl 0.9% 250 mL (ACTIVASE) heparin iv infusion 25,000 units in 0.45% NaCl 250 mL PREMIX acetaminophen 650 mg tab(s) (TYLENOL) oxyCODONE IR 5-10 mg tab(s) (ROXICODONE) hydrOXYzine pamoate 25 mg cap(s) (VISTARIL) HYDROmorphone STUDY ABROAD ADVISOR 0.5 mg/mL in NaCl 0.9% 100 mL hydrALAZINE 10-20 mg injection (APRESOLINE) Problem List: Bipolar affective [F31.9] Carotid artery disease (HCC) [I77.9] PAD (peripheral artery disease) [I73.9] Postoperative pain [G89.18] Arterial occlusion, lower extremity (HCC) [I70.209] Bipolar disorder (HCC) [F31.9] Hyperlipidemia [E78.5] Neuropathic pain [M79.2] AISSATOU (obstructive sleep apnea) [G47.33] Smoker [F17.200] Thrombus [I82.90] Allergies: Horizant [Gabapentin Enacarbil] Wellbutrin [Bupropion Hcl] Date Verified: 10/22/17 Lab Values Lab Value Units Date High Low POTA* 3.7 mmol/L 10/23/2017 5.0 3.5 CHRISTEL* 37.7 % 10/23/2017 46.0 36.0 Progress Notes ([facility]): Mohamud Cash PA-C 10/21/2017 5:24 PM Signed ED INTAKE NOTE Patient Name: Neil Mendenhall Service Date: 10/21/17 BRIEF HPI: Pt had outpatient arterial ultrasound LLE today showing the following: Compared to prior study of 02/01/2015, left superficial femoral artery is occluded on today's exam. Hx of bilateral PAD s/p previous angioplasty, currently on coumadin. ? BRIEF EXAM: Awake and Alert TEAGUE Ambulatory on triage INTAKE WORKUP: Pt roomed SIGNATURE: KELVIN Pandey 10/22/2017 8:10 AM Addendum [facility]SULT Service Date: 10/21/2017 Admit Date: 10/21/2017 Service Time: 5:49 PM LOS: 0 Requesting Provider: ED Staff Vascular Physician: Benita Torres MD Subjective Chief Complaint: Left Lower leg pain HPI: Neil Mendenhall is a 52 year old Unavailable female referred by ED staff for an opinion regarding management of left SFA thrombosis . Location: left Quality: acute Severity: moderate Duration: 3-4 days Timing: constant Context: at rest Modifying Factors: improves with rest Ms. Mendenhall is a chronic smoker with a complex vascular history s/p multiple interventions on the left leg for acute limb ischemia , multiple baloon angioplasties of the left SFA x 3 and lysis in 2013 for TEJAS . RSFA angioplasty x 1 in 2011 . She presented today with complaints of left lower limb pain more in the toes for the past 3-4 days with gradual discoloration of the toes over the past few weeks. She continues to smoke. She is on 3mg of coumadin and 81mg of aspirin . PAST MEDICAL HISTORY Diagnosis Date - Carotid artery disease (HCC) PAST SURGICAL HISTORY Procedure Laterality Date - ANGIO TRANSLUM BALL ANGIO ANGELO 2008 [id number] No family history on file. Social History Substance Use Topics - Smoking status: Former Smoker Packs/day: 0.50 Years: 25.00 Types: Cigarettes Quit date: 09/01/2009 - Smokeless tobacco: Never Used Comment: currently using electronic cigarette - Alcohol use No (Not in a hospital admission) Current hospital medications: NaCl 0.45% iv infusion 100 mL/hr INTRAVENOUS CONTINUOUS ALLERGIES Allergen Reactions - Horizant [Gabapenti* Mental Status Change - Wellbutrin [Bupropi* Other: See Comments Took med on Wednesday Woke up 3 days later in hospital COMPLETE REVIEW OF SYSTEMS CONSTITUTIONAL: No weight loss, malaise or fevers. HEENT: Negative for frequent or significant headaches, No changes in hearing or vision, no nose bleeds or other nasal problems. RESPIRATORY: Negative for cough, wheezing, or shortness of breath CARDIOVASCULAR: Negative for chest pain, leg swelling or palpitations GI: Negative for abdominal discomfort, blood in stools or black stools or change in bowel habits. : No history of dysuria, frequency, or incontinence and No difficulty urination, nocturia >1 times per night or hematuria. MUSCULOSKELETAL: Negative for joint pain or swelling, back pain or muscle pain. ENDOCRINE: Negative for cold or heat intolerance, polyuria, polydipsia and goiter HEMATOLOGIC/LYMPHATIC: Negative for prolonged bleeding, bruising easily or swollen nodes. NEUROLOGIC: No history or headaches, syncope, paralysis, seizures or tremors. INTEGUMENTARY: Negative for lesions, rash, and itching. Objective PHYSICAL EXAM Physical Exam Performed Patient Vitals for the past 24 hrs: BP Temp Temp src Pulse Resp SpO2 Height Weight 10/21/17 1719 134/66 37 ?C (98.6 ?F) Oral 61 18 98 % 167.6 cm (5' 6) 76.2 kg (168 lb) No intake or output data in the 24 hours ending 10/21/17 1748 CONSTITUTIONAL: Well developed NEUROLOGIC/PSYCHIATRIC: Oriented to time, place AND person HEENT: PERRLA LUNGS: Clear HEART: Regular rate AND rhythm ABDOMEN: Soft and Non-tender INTEGUMENTARY: Wound - No SURGICAL SITES: None MUSCULOSKELETAL: No deformities Bluish discoloration of the left 1st , 2nd and 3rd toe with delayed capillary refill, neuromotor intact , Pulses/Signals: Carotid Brachial Radial Femoral Popliteal Dorsalis Pedis Posterior Tibial Peroneal Right Palpable +2 Palpable +2 Palpable +2 Palpable +2 Palpable +2 Biphasic Signal Palpable +2 Triphasic Signal Left Palpable +2 Palpable +2 Palpable +2 Palpable +2 Palpable +2 Biphasic Signal (faint) Biphasic Signal Triphasic Signal Does the patient have critical limb ischemia, rest pain, tissue loss or gangrene?: Yes W: Wound/ Clinical Category SVS Grades for rest pain and wounds tissue loss (ulcers and gangrene) 0 (ischemia rest pain) no ulcer, no gangrene I: Ischemia Hemodynamics/perfusion: Measure TP or TcpO2 if ARELI incompressible (> 1.3) SVS Grades: >0.8 FI: Foot Infection SVS Grades: 0 (none, uninfected) none of the following present: local swelling or induration, erythemia > 0.5 to </- 2cm around ulcer, local tenderness or pain,local warmth, purulent discharge WIFI: Wound: 0 Ischemia: 0 Foot Infection: 0 DATA: Laboratory: Radiology: I have personally reviewed the following images/data: PVR and Duplex PVR: IMPRESSION Compared to prior study of 05/25/2016, decrease in left ARELI, previously 0.99. ? RIGHT SIDE ? Resting right ankle brachial index: 1.20 ? Normal ankle brachial index at rest in the right leg. ? Right ankle: Normal at rest. ? Right small vessel disease. ? LEFT SIDE ? Resting left ankle brachial index: 0.69 ? Abnormal ankle brachial index at rest diagnostic of peripheral artery disease. ? Left ankle: Moderate disease at rest. ? Left small vessel disease. Duplex: IMPRESSION Compared to prior study of 02/01/2015, left superficial femoral artery is occluded on today's exam. ? LEFT SIDE External iliac artery distal: plaque noted without evidence of hemodynamically significant stenosis . Common femoral artery : plaque noted without evidence of hemodynamically significant stenosis . Profunda femoral artery proximal: patent . Superficial femoral artery proximal to mid: occluded . Reconstitutes via a collateral at distal thigh. Popliteal artery : patent . Tibioperoneal trunk : plaque noted without evidence of hemodynamically significant ?stenosis . Posterior tibial artery : patent . Peroneal artery distal: occluded . Visualized in segments. Anterior tibial artery proximal: occluded . Unable to visualize mid to distal vessel. Impression/Recommendations Impression: 52 year old female with the aforementioned history presents with possible acute limb ischemia , non threatened limb at the time of exam . Plan: - Admit to Dr. Torres - Keep NPO - Heparin drip ACS Standard nomogram - Resume home meds - for diagnostic angiogram tomorrow , possible intervention , possible lysis - Will discuss with Dr. Torres - Seen and examined with Dr. Jo , Senior resident No problems updated. SIGNATURE: Elle Suazo Krissyjosh PATIENT NAME: Neil Mendenhall DATE: October 21, 2017 TIME: 5:48 PM Previous Version Shay Cardenas MD, MD 10/21/2017 7:24 PM Signed ED Provider Note Patient Name: Neil Mendenhall SERVICE DATE: 10/21/17 History Patient presents with: Sent By Md: states had ultrasound done and has superficial venous blockage in left groin area; takes Coumadin and ASA HPI 52-year-old female who has a history of vascular disease who presents for an occlusion of the left too professional femoral arterial artery. She's had increasing left upper leg pain for the past week. Worse over the past 2 days. A throbbing and aching severe pain that feels like her past arterial occlusions. She also states her toes of been blue, the second toe is the most painful. She says I knew I had a blood clot. She is on Coumadin and aspirin. She had an ultrasound done today showing an occlusion. She was instructed by her vascular surgeon to come to the ED. PAST MEDICAL HISTORY Diagnosis Date - Carotid artery disease (HCC) PAST SURGICAL HISTORY Procedure Laterality Date - ANGIO TRANSLUM BALL ANGIO ANGELO 2008 [id number] No family history on file. Social History Social History Main Topics - Smoking status: Former Smoker Packs/day: 0.50 Years: 25.00 Types: Cigarettes Quit date: 09/01/2009 - Smokeless tobacco: Never Used Comment: currently using electronic cigarette - Alcohol use No - Drug use: None - Sexual activity: Not Asked ALLERGIES Allergen Reactions - Horizant [Gabapenti* Mental Status Change - Wellbutrin [Bupropi* Other: See Comments Took med on Wednesday Woke up 3 days later in hospital Review of Systems Constitutional: Negative for chills, fatigue and fever. HENT: Negative for rhinorrhea and sore throat. Eyes: Negative for pain and redness. Respiratory: Negative for cough and shortness of breath. Cardiovascular: Negative for chest pain, palpitations and leg swelling. Gastrointestinal: Negative for abdominal pain, constipation, diarrhea, nausea and vomiting. Genitourinary: Negative for dysuria, frequency and hematuria. Skin: Negative for rash and wound. Allergic/Immunologic: Negative for immunocompromised state. Neurological: Negative for dizziness and headaches. Hematological: Does not bruise/bleed easily. Physical Exam BP 134/66 Pulse 61 Temp (Src) 98.6 (Oral) Resp 18 Ht 5' 6 (1.68m) Wt 168 lb (76.2kg) SpO2 98% BMI 27.13 kg/(m2). Physical Exam Constitutional: She is oriented to person, place, and time. She appears well-developed and well-nourished. No distress. HENT: Head: Normocephalic and atraumatic. Mouth/Throat: Oropharynx is clear and moist. Eyes: Conjunctivae and EOM are normal. Neck: Normal range of motion. Neck supple. No tracheal deviation present. Cardiovascular: Normal rate, regular rhythm, normal heart sounds and intact distal pulses. Exam reveals no gallop and no friction rub. No murmur heard. Pulmonary/Chest: Effort normal and breath sounds normal. No respiratory distress. She has no wheezes. She has no rales. She exhibits no tenderness. Abdominal: Soft. Bowel sounds are normal. She exhibits no distension and no mass. There is no tenderness. There is no rebound and no guarding. Musculoskeletal: Dopplerable pulses of the lower extremities, I am unable to palpate DP or PT pulses of the left lower extremity, I am able to palpate DP and PT pulses on the right, both feet are cool to the touch, toes are cyanotic bilaterally, the second toe of the left is the most cyanotic, patient reports tenderness palpation, there is no blistering, I'm able to palpate femoral pulses bilaterally, no extremity swelling Neurological: She is alert and oriented to person, place, and time. Skin: Skin is warm and dry. No rash noted. She is not diaphoretic. Nursing note and vitals reviewed. Diagnostic Testing ED Labs Ordered and Reviewed - No data to display Procedures Medical Decision Making / ED Course ED Course Records Reviwed Electronic medical record reviewed and significant for hx of arterial clots, ultrasound today showing L femoral artery occulusion LABS - reviewed and interpreted as: INR 1 CBC unremarkable BMP normal Vital signs were reviewed. Triage records were reviewed. Medical records were reviewed. Nursing notes were reviewed and incorporated MEDICATIONS ADMINISTERED ED Medication Administration from 10/21/2017 1717 to 10/21/2017 1923 Date/Time Order Dose Route Action 10/21/2017 1853 heparin iv infusion (STANDARD NOMOGRAM) 25,000 units in NaCl 0.45% 250 mL PREMIX 1,400 Units/hr INTRAVENOUS New Bag 10/21/2017 190 heparin iv infusion (STANDARD NOMOGRAM) 25,000 units in NaCl 0.45% 250 mL PREMIX 0 Units/hr INTRAVENOUS Transferred from ED 10/21/2017 185 heparin nomogram INITIAL BOLUS 6,100 Units INTRAVENOUS Given COURSE/MDM 52 year old presents with Left leg pain with a recent ultrasound showing a left femoral artery occlusion. I was able to Doppler pulses of the left foot. Patient did have reconstitution on the ultrasound. Vascular surgery consulted. Lab work drawn.Patient started on heparin infusion, admitted to vascular surgery. Riley Cardenas MD Encounter Diagnosis ICD-10-CM 1. 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 Condition at time of disposition: stable SIGNATURE: MD Shay Rich MD 10/21/17 192 Celina Johansen, RN, RN 10/21/2017 5:56 PM Signed Vascular at bedside Karlie Maddox RN, RN 10/21/2017 8:33 PM Signed Nursing Progress Note Patient Name: Neil Mendenhall Patient Location: [place] [address]/[place] [address] Transfer Note: Patient transferred into room/unit PK2-227 in stable condition. Actions taken: Patient belongings with patient, VSS, tele applied, oriented to room, call light in reach. This note was completed by: SARAH Hernandez MD 10/22/2017 2:56 PM Unsigned Exercise Science Instructor [facility] - Operative Report NEIL MENDENHALL : 1965 AGE: 52 SEX: F ACCTNUM: [id number] HOSP SVC: INTM [facility]ICIAN: Benita Torres M.D. DATE OF PROCEDURE: 10/22/2017 PREOPERATIVE DIAGNOSIS: Left leg ischemic pain and discoloration of the third toe with peripheral artery disease. POSTOPERATIVE DIAGNOSIS: Thrombosis of the left SFA. NAME OF OPERATION: 1. Diagnostic abdominal aortogram, bilateral iliac and femoral popliteal angiogram. 2. Contralateral cannulation of the left posterior tibial artery from the right groin to the third order. 3. Placement of lysis catheter and wire in left posterior tibial artery and popliteal superficial femoral artery. SURGEON: Benita Torres M.D. TRUST ADMINISTRATOR: NONE ANESTHESIA: INDICATIONS: The patient is a long-term smoker with history of left leg intervention 2 years ago, balloon angioplasty. Presented in the emergency room, discoloration of the third toe and pain, was found to have occluded SFA. PVR study shows ARELI to 0.6. The scan shows occlusion of the SFA, and the patient experienced pain over the last 2 days. The patient in for diagnostic angio and intervention to manage the occluded lesion and salvage the toe. I explained to the patient procedure in detail. She signed proper consent. PROCEDURE: The patient placed on the x-ray table in the Cardiac catheterization Lab, given mild sedation. Right and left groin prepared and draped in usual fashion. We accessed the right femoral artery with microneedle and introduced #4 sheath. We advanced wire to the abdominal aorta. Pigtail catheter passed over the wire, placed at the abdominal aorta. Formal abdominal aortogram, bilateral iliac, and femoral popliteal runoff down to the ankle. Findings: The aorta and iliac arteries widely patent. The right SFA, right common femoral, superficial femoral popliteal artery patent with 2-vessel runoff including peroneal and posterior tibial artery seen to the foot. There anterior tibial artery is patent but small in the distal portion. On the left side, there is occlusion of the SFA just from its origin. Reconstituted popliteal artery above the knee. The popliteal artery patent. Anterior tibial artery occluded distal to its origin and the main runoff is the posterior tibial artery and peroneal artery, just seen to the ankle. With this finding, I gave the patient the option of to do nothing and there is potential risk on the toe and persistent pain versus doing bypass versus attempt lysis and with the procedure in detail, the risks and benefit was explained. The patient decided to go ahead with the lysis understanding the risks involved including distal embolization. Then with that decision, we proceeded with the interventional part. I used the RIM catheter and introduced the wire to the left superficial femoral artery. We introduced #6 sheath and using a roadmapping technique, I was able to get into the superficial femoral artery successfully. We advanced the catheter distally and the wire advanced with the Quick-Cross catheter to the popliteal artery. Confirming that with the angiogram with contrast make sure we were in the lumen. Following this, angled glide catheter used with the roadmapping technique to select the posterior tibial artery which was done successfully advancing the PT2 wire to the ankle. Following this, we advanced the lysis catheter over the wire with the lysis wire advanced to the posterior tibial artery distally and the lysis catheter, extended from the popliteal artery to the proximal SFA. The tPA will be infused. The patient received during the procedure 5000 units of heparin to have 500 units of heparin through the side sheath. The system was fixed to the skin and the tPA ordered to be initiated immediately. The patient sent to the Intensive Care for overnight lysis infusion. The patient tolerated the procedure well. Benita Torres M.D. Vascular Surgery [id number] /[id number] Ada Khan MD 10/22/2017 10:01 AM Addendum BRIEF OPERATIVE / PROCEDURE NOTE LOG ID: [id number] Surgery/Procedure Date: 10/22/2017 Incision/Procedure Start Time: Incision Close/Procedure End Time: Surgeon(s)/Proceduralist(s) and Swimmer(s): Surgeon(s) and Role: * Benita Torres - Primary * Ada Khan - Assisting No Additional Staff Procedure(s): Aortobifem angiogram, contralateral access to Left PT, third order, lysis catheter placed. Anesthesia: Procedural Sedation Findings: Blockage at Left PT, faint dopler signal at PT at end of case Estimated Blood Loss: 5 mls Specimens: None Wound Classification: Class 1, operative wound clean, non- traumatic, with no inflammation encountered, no break in technique, gastrointestinal and genitor-urinary tracts not entered Complications: None Pre-Op/Pre-Procedure Diagnosis: acute limb ischemia Post-Op/Post-Procedure Diagnosis: acute limb ischemia SIGNATURE: Ada Khan MD PATIENT NAME: Neil Mendenhall DATE: October 22, 2017 TIME: 9:54 AM PAGER/CONTACT #: Previous Version Linda Chase, RN, RN 10/22/2017 10:12 AM Signed Nursing Progress Note Patient Name: Neil Mendenhall Patient Location: /[id number] Daily Note: Pt alert and oriented, heparin gtt infulsing, NSS started per order. NPO since 1800 last night. Patient's sister Kathryn at bedside, supportive. All updated on POC. 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 Notified by mill labor supervisor pt tranferred to unit- all belongings in [id number] sent to ICU with PCNA. This note was completed by: Linda Chase, SARAH Puente, SARAH, RN 10/22/2017 8:18 PM Addendum Nursing Progress Note Patient Name: Neil Mendenhall Patient Location: / Daily Note: 1020 Patient arrived from mill labor supervisor. Patient is awake and alert, conversing with staff. Patient connected to monitor. Full assessment to follow. 1050 Patient's sister at bedside 1055 Strategic Debriefing Officer at bedside to draw fibrinogen and cbc 1200 Dr. Torres at bedside, notified of patients itching. Doppled signals in left foot in his presence. 1208 Benadryl IV given for itching 1220 Pt reports some relief from itching in left leg. 1415 Difficulty in finding left lower extremity signals, toes appear more pale and purple and cool. Patient reports numbness and pain, patient is able to wiggle toes. Drs. Koehler and Sandy notified and are at the bedside. Warm blanket placed over left leg. 1440 Dr. Gamino at bedside to assess foot and pulses. Weak signals found. New order for Rooke boots. 1740 Dr. Nam at bedside to assess patient. Nurse explained that foot appears more cool and dusky at times and warmer and pinker at other vascular checks. Rooke boot and warming blanket in place to try to keep foot warm. Dr Nam requests STUDY ABROAD ADVISOR pain control for this patient. 1915 Report to oncoming RN. This note was completed by: Nadine Puente RN Previous Version Damien Delgado MD 10/22/2017 1:22 PM Addendum . CRITICAL CARE HISTORY AND PHYSICAL EXAMINATION PLEASE DO NOT REMOVE FROM THE CHART OR MODIFY PRINTED COPY Patient Name: Neil Mendenhall PRIMARY CARE PHYSICIAN: Kathryn Galvan MD CHIEF COMPLAINT: Acute LLE Limb Ischemia HPI: Neil Mendenhall is a 52 year old female, chronic smoker with history of PVD s/p multiple interventions to LLE including baloon angioplasties of the left SFA x 3 and lysis in 2013 for ALI. RSFA angioplasty x 1 (2011) who was admitted on 10/21/2017 for Acute LLE pain. POD #0 Aortobifem angiogram, Right Fem access to Left PT, Lysis. PAST MEDICAL HISTORY: PAST MEDICAL HISTORY Diagnosis Date - Carotid artery disease (HCC) PAST SURGICAL HISTORY: PAST SURGICAL HISTORY Procedure Laterality Date - ANGIO TRANSLUM BALL ANGIO ANGELO 2008 [id number] FAMILY HISTORY: No family history on file. SOCIAL HISTORY: Social History Substance Use Topics - Smoking status: Former Smoker Packs/day: 0.50 Years: 25.00 Types: Cigarettes Quit date: 09/01/2009 - Smokeless tobacco: Never Used Comment: currently using electronic cigarette - Alcohol use No MEDICATIONS: Prior to Admission Medications: NIFEdipine ER (PROCARDIA XL) 30 mg 24 hr tablet Take 1 tablet by mouth once daily. Cholecalciferol, Vitamin D3, 5,000 unit cap Take 5,000 Units by mouth once daily. warfarin (COUMADIN) 3 mg tablet Take 3 mg by mouth daily as directed. aspirin 81 mg chewable tablet Take 1 tablet by mouth once daily. pravastatin (PRAVACHOL) 20 mg tablet Take 20 mg by mouth once daily. lamoTRIgine (LAMICTAL) 200 mg tablet Take 200 mg by mouth once daily. aripiprazole(ABILIFY 20 MG TAB) Take one(1) tablet daily. oxyCODONE-acetaminophen (PERCOCET) 5-325 mg tablet Take 1- 2 tablets by mouth every 4 hours as needed for Pain. nitroglycerin (NITRO-BID) 2 % ointment Apply 0.5 g as directed twice daily. Apply in the morning and remove at night warfarin (COUMADIN) 4 mg tablet Take 4 mg by mouth daily as directed. As directed pregabalin (LYRICA) 225 mg capsule Take 225 mg by mouth twice daily. Current hospital medications: lamoTRIgine 200 mg tab(s) (LaMICtal) 200 mg ORAL DAILY simvastatin 10 mg tab(s) (ZOCOR) 10 mg ORAL AT BEDTIME ARIPiprazole 20 mg tab(s) (ABILIFY) 20 mg ORAL DAILY aspirin 81 mg chewable tab(s) 81 mg ORAL DAILY NIFEdipine XL 30 mg tab(s) (ADALAT CC) 30 mg ORAL DAILY NaCl 0.9% iv infusion 100 mL/hr INTRAVENOUS CONTINUOUS alteplase 10 mg in NaCl 0.9% 250 mL (ACTIVASE) 0.5 mg/hr INTRAVENOUS CONTINUOUS alteplase 10 mg in NaCl 0.9% 250 mL (ACTIVASE) 0.5 mg/hr INTRAVENOUS CONTINUOUS [MAR Hold due to Transfer] heparin iv infusion 25,000 units in 0.45% NaCl 250 mL PREMIX 500 Units/hr INTRA-ARTERIAL CONTINUOUS acetaminophen 650 mg tab(s) (TYLENOL) 650 mg ORAL q 6 H oxyCODONE IR 5-10 mg tab(s) (ROXICODONE) 5-10 mg ORAL q 6 H PRN morphine 4 mg injection 4 mg INTRAVENOUS q 2 H PRN hydrOXYzine pamoate 25 mg cap(s) (VISTARIL) 25 mg ORAL q 6 H PRN ALLERGIES: ALLERGIES Allergen Reactions - Horizant [Gabapenti* Mental Status Change - Wellbutrin [Bupropi* Other: See Comments Took med on Wednesday Woke up 3 days later in hospital COMPLETE REVIEW OF SYSTEMS: GENERAL: No weight loss, malaise or fevers. HEENT: Negative for new headaches, vision changes, dysphagia RESPIRATORY: Negative for cough, wheezing or shortness of breath. CARDIOVASCULAR: Negative for chest pain GI: No change in bowel habits, hematochezia, melena, nausea, vomiting : No history of dysuria MUSCULOSKELETAL: SEE HPI SKIN: Negative for new lesions HEMATOLOGY/LYMPHOLOGY: Negative for prolonged bleeding NEURO: No altered mental status PHYSICAL EXAM: BP 148/72 Pulse (!) 51 Temp 37 ?C (98.6 ?F) Resp 18 Ht 167.6 cm (5' 6) Wt 76.9 kg (169 lb 8 oz) SpO2 99% BMI 27.36 kg/m2 General appearance: uncomfortable appearing, alert, in no mild distress, well-hydrated, well nourished Neuro: Awake, alert, Sensation grossly intact. Skin: skin color, texture, turgor normal, no suspicious rashes or lesions HEENT: Normocephalic, EOMI, mucosa moist Lungs: clear to auscultation, no wheezing or rhonchi Heart: RRR without murmur, gallop, or rubs. Abdomen: Abdomen soft, non-tender, non-distended. Lines/Tubes/Drains: Lysis catheter/dressing in place in right groin Pulses/Signals: Radial Dorsalis Pedis Posterior Tibial Right Palpable +2 Biphasic Signal Triphasic Signal Left Palpable +2 Biphasic Signal Triphasic Signal DATA: Laboratory:CBC, Coags, BMP, Mg, Phos Recent Labs 10/22/17 1056 10/22/17 0422 10/22/17 0100 10/21/17 1750 WBC 9.29 9.25 -- 8.67 HB 13.0 12.8 -- 13.3 HCT 38.8 38.0 -- 39.0 PLT 361 390 -- 415* INR 1.0 -- -- 1.0 APTT 98.5* -- 51.8* 25.7 NA -- -- -- 141 K -- -- -- 3.5 CHLOR -- -- -- 101 CO2 -- -- -- 25 BUN -- -- -- 11 CREAT -- -- -- 0.74 GLUC -- -- -- 111* CA -- -- -- 9.2 Liver Function, Amylase, AND Lipase ABGs No results found for: LACT Radiology: Reviewed ASSESSMENT/PLAN: Neil Mendenhall is a 52 year old female, chronic smoker with history of PVD s/p multiple interventions to LLE including baloon angioplasties of the left SFA x 3 and lysis in 2014 for ALI. RSFA angioplasty x 1 (2011) who was admitted on 10/21/2017 for Acute LLE pain. POD #0 Aortobifem angiogram, Right Fem access to Left PT, Lysis. Indication for ICU admission: Vascular checks in the setting of the above surgery Neuro: - Analgesia: Tylenol, Marzena - Anxiety/Sedation/Itching: Benadryl x1, Hydroxyzine. Abilify - h/o Seizures on lamictal Cardiovascular: - Acute LLE on hep, TPA - HTN Nifedipine - CAD: Statin, [id number] - ICU monitoring - IV Access: pIV Respiratory: - Incentive spirometry GI: - Nutrition/Diet: CLD. NPO @MN (Lysis check Tomorrow). Renal: (Baseline sCr: 0.74) - Urine output ok. sCr 0.74. Humphries indicated. - IVF NS at 100 - Electrolytes replete Ca, K >4, Phos >3, Mag >2. Heme/ID: - Hemoglobin ok. No evidence of bleeding. Transfuse for hgb < 7 or if symptomatic - WBC trend - Abx: none - DVT Prophylaxis: IPCs, Endo: - Glucose WNL. Wound Care: RLE imobile. - catheter/wire dressing in place MSK - Activity Level: Bedrest Dispo: SICU Plan to be discussed with ICU Staff Dr. Delgado. Mario Koehler MD General Surgery [C]: [phone] [P]: [id number] Date: 10/22/2017 Time: 11:57 AM [facility] STAFF PHYSICIAN SUPERVISING RESIDENT I have reviewed the progress note obtained and documented by the resident. I personally participated in the mcadams components. I have discussed the case and the plan and management of the patient's care with the ICU team AND Vascular Surgery. IMPRESSION AND PLAN: As annotated in the above note. Generally satisfactory postprocedure course so far. -perfusion clinically adequate -no evidence of bleeding -pain control only fair (reperfusion pain) -patient reports foot itching--trying Benadryl Continue close ICU monitoring AND frequent neurovascular checks. SIGNATURE: Damien Delgado MD DATE of SERVICE: 10/22/2017 TIME of SERVICE: 1:00 PM Previous Version Kaitlynn Michaels, RN, RN 10/23/2017 6:44 AM Addendum Nursing Progress Note Patient Name: Neil Mendenhall [facility] [place] [address]: 1899: Bedside report received from SARAH Mccoy. 1936: Dr. Koehler paged regarding hypertension and possible clinician doses. 1956: Dr. Koehler at bedside; PRN order for hydralazine received. Dr. Koehler is okay for q12h labs. 1999: Full assessment completed; see documentation. q1h vascular/right groin checks continue. Right groin dressing remains clean, dry, and intact. Patient reports pain is better controlled. 2026: Dr. Koehler paged regarding my inability to dopple the left DP signal. 2047: Dr. Koehler at bedside; able to dopple a signal in the right DP easily. The foot appears warmer and has better color. Rooke boot and bearhugger in use. 2099: Patient used bedpan and voided 5 cc; preventative allevyn applied to the coccyx. 2141: Bladder scan reveals 870 ml retained urine. Patient states she wants to use the bedpan one more time. 2218: Dr. Koehler made aware of fleeting DP pulse. 2223: Dr. Jo at bedside. Aware of fleeting DP pulse and doppled PT signal. Okay to continue to monitor. 2350: Dr. Koehler made aware of drop in fibrinogen. Will continue to monitor at this time. 0000: Reassessment completed; see documentation. 0020: HS rounds have been completed with Dr. Koehler. AM labs ordered. Updated on new shadowing on the right groin dressing. Also, made aware of the patient's vascular assessment. 0240: Bloody drainage noted on the right groin dressing. 0400: Reassessment completed; see documentation. 0508: Dr. Koehelr made aware of increased right groin bleeding. Stat coags ordered. 0531: Dr. Koehler made aware of K of 3.7. 0551: Lab at bedside for coags. 0552: Patient placed on 2L O2 NC. 0642: Dr. Koehler made aware of fibrinogen of 149. Awaiting orders. 0700: Bedside report has been given to the day shift RN. This note was completed by: Kaitlynn Michaels RN Previous Version Mario Koehler MD 10/23/2017 7:07 AM Addendum Critical Care Progress Note Service Date: October 23, 2017 Assessment and Plan: Neil Mendenhall is a 52 year old female, chronic smoker with history of PVD s/p multiple interventions to LLE including baloon angioplasties of the left SFA x 3 and lysis in 2013 for ALI. RSFA angioplasty x 1 (2011) who was admitted on 10/21/2017 for Acute LLE pain. POD #1 Aortobifem angiogram, Right Fem access to Left PT, Lysis. ? Indication for ICU admission: Vascular checks in the setting of the above surgery ? Neuro: - Analgesia: Tylenol, Marzena - Anxiety/Sedation/Itching: Benadryl x1, Hydroxyzine. Abilify - h/o Seizures on lamictal ? Cardiovascular: - Acute LLE on hep, TPA. Plan for Lysis today - HTN Nifedipine - CAD: Statin, ASA81 - ICU monitoring - IV Access: pIV ? Respiratory: - Incentive spirometry ? GI: - Nutrition/Diet: CLD. NPO @MN (Lysis check Tomorrow). ? Renal: (Baseline sCr: 0.74) - Urine output ok. sCr 0.66. Humphries indicated. - IVF NS at 100 - Electrolytes replete Ca, K >4, Phos >3, Mag >2. ? Heme/ID: - Hemoglobin 12.9. No evidence of bleeding. Transfuse for hgb < 7 or if symptomatic - Fibrinogen 605 > 194 > pending - WBC 8.8 - Abx: none - DVT Prophylaxis: IPCs, no SQH ? Endo: - Glucose WNL. ? Wound Care: RLE imobile. - catheter/wire dressing in place ? MSK - Activity Level: Bedrest ? Dispo: SICU ? Plan to be discussed with ICU Staff Dr. Delgado. Mario Koehler MD General Surgery [C]: [phone] [P]: [id number] Date: 10/23/2017 Time: 5:26 AM Subjective: Interval Events: NAEON. Bleeding around catheter site. Exam unchanged Physical Exam: BP 131/64 Pulse 75 Temp 37.2 ?C (99 ?F) (Oral) Resp 17 Ht 167.6 cm (5' 6) Wt 78.8 kg (173 lb 11.6 oz) SpO2 91% BMI 28.04 kg/m2 GENERAL: Well appearing 52 year old female in no distress NEURO: AAOx3, GCS HEENT: Atraumatic CHEST: nonlabored breathing on RA. NL rate and rhythm ABDOMEN: soft, non-distended, non-tender EXTREMITIES: Warm well perfused, no deformities. Lysis catheter in place. LLE toes with good cap refill, cyanosis improved Pulses/Signals: Radial Dorsalis Pedis Posterior Tibial Peroneal Right Palpable +2 Biphasic Signal Biphasic Signal Not assessed Left Palpable +2 Monophasic Signal Biphasic Signal Biphasic Signal Labs: CBC, BMP, MG, PHOS Recent Labs 10/23/17 0324 10/22/17 2229 10/22/17 1056 10/22/17 0422 10/21/17 1750 04/23/14 0712 04/22/14 0030 04/21/14 1220 04/21/14 0400 04/20/14 2040 WBC -- 8.81 9.29 9.25 8.67 < > 8.99 8.45 10.13 7.92 11.25* HB -- 12.9 13.0 12.8 13.3 < > 10.5* 10.1* 10.9* 10.9* 11.7 HCT -- 38.3 38.8 38.0 39.0 < > 31.5* 30.9* 33.3* 33.4* 33.8* PLT -- 289 361 390 415* < > 334 284 292 313 291 NA 139 -- -- -- 141 -- 140 138 137 140 139 K 3.7 -- -- -- 3.5 -- 4.1 3.7 4.1 3.8 3.9 CHLOR 103 -- -- -- 101 -- 103 106 105 107 106 CO2 21* -- -- -- 25 -- 25 24 23 23 21* BUN 6* -- -- -- 11 -- 5* 6* 7* 7* 9 CREAT 0.66* -- -- -- 0.74 -- 0.85 0.73 0.81 0.87 0.96 GLUC 87 -- -- -- 111* -- 83 159* 97 146* 110* CA 8.3* -- -- -- 9.2 -- 8.8 8.0* 8.3* 8.4* 8.8 MG 2.1 -- -- -- -- -- -- -- 2.1 2.2 2.1 P 3.1 -- -- -- -- -- -- -- 3.1 3.5 3.1 < > = values in this interval not displayed. Liver Function, Amylase, AND Lipase Recent Labs 04/20/14 2040 01/15/11 1712 TPROT 7.0 7.6 ALB 3.6 4.48 ALT 26 -- AST 16 -- ALKPHOS 77 -- TBILI 0.3 -- Coags Recent Labs 10/22/17 2229 10/22/17 1056 10/22/17 0100 10/21/17 1750 04/24/14 0514 APTT 39.9* 98.5* 51.8* 25.7 60.9* INR 1.2 1.0 -- 1.0 1.0 Intake and Output: Date 10/22/17699 - 10/23/17 0659 10/23/17 07 - 10/24/17 0659 Shift 7722-6939 4386-1625 3521-5998 24 Hour Total 9189-1571 3372-8846 0358-4357 24 Hour Total I N T A K E PO 120 120 240 PO 120 120 240 IV 939 680.3 1619.3 NS 0.9% 939 939 Heparin IV 216.3 216.3 TPA 464 464 Shift Total 1059 800.3 1859.3 O U T P U T Urine 400 716 059 5568 Void (ml) 400 929 246 1216 # of BMs Number of BMs 0 x 0 x 0 x Shift Total 400 327 692 9686 Weight (kg) 76.9 76.9 78.8 78.8 78.8 78.8 78.8 78.8 Current Medications: Current hospital medications: lamoTRIgine 200 mg tab(s) (LaMICtal) 200 mg ORAL DAILY simvastatin 10 mg tab(s) (ZOCOR) 10 mg ORAL AT BEDTIME ARIPiprazole 20 mg tab(s) (ABILIFY) 20 mg ORAL DAILY aspirin 81 mg chewable tab(s) 81 mg ORAL DAILY NIFEdipine XL 30 mg tab(s) (ADALAT CC) 30 mg ORAL DAILY NaCl 0.9% iv infusion 100 mL/hr INTRAVENOUS CONTINUOUS alteplase 10 mg in NaCl 0.9% 250 mL (ACTIVASE) 0.5 mg/hr INTRAVENOUS CONTINUOUS alteplase 10 mg in NaCl 0.9% 250 mL (ACTIVASE) 0.5 mg/hr INTRAVENOUS CONTINUOUS heparin iv infusion 25,000 units in 0.45% NaCl 250 mL PREMIX 500 Units/hr INTRA-ARTERIAL CONTINUOUS acetaminophen 650 mg tab(s) (TYLENOL) 650 mg ORAL q 6 H oxyCODONE IR 5-10 mg tab(s) (ROXICODONE) 5-10 mg ORAL q 6 H PRN hydrOXYzine pamoate 25 mg cap(s) (VISTARIL) 25 mg ORAL q 6 H PRN HYDROmorphone STUDY ABROAD ADVISOR 0.5 mg/mL in NaCl 0.9% 100 mL INTRAVENOUS CONTINUOUS hydrALAZINE 10-20 mg injection (APRESOLINE) 10-20 mg INTRAVENOUS q 6 H PRN Prior to Admission Medications: NIFEdipine ER (PROCARDIA XL) 30 mg 24 hr tablet Take 1 tablet by mouth once daily. Cholecalciferol, Vitamin D3, 5,000 unit cap Take 5,000 Units by mouth once daily. warfarin (COUMADIN) 3 mg tablet Take 3 mg by mouth daily as directed. aspirin 81 mg chewable tablet Take 1 tablet by mouth once daily. pravastatin (PRAVACHOL) 20 mg tablet Take 20 mg by mouth once daily. lamoTRIgine (LAMICTAL) 200 mg tablet Take 200 mg by mouth once daily. aripiprazole(ABILIFY 20 MG TAB) Take one(1) tablet daily. oxyCODONE-acetaminophen (PERCOCET) 5-325 mg tablet Take 1- 2 tablets by mouth every 4 hours as needed for Pain. nitroglycerin (NITRO-BID) 2 % ointment Apply 0.5 g as directed twice daily. Apply in the morning and remove at night warfarin (COUMADIN) 4 mg tablet Take 4 mg by mouth daily as directed. As directed pregabalin (LYRICA) 225 mg capsule Take 225 mg by mouth twice daily. Previous Version ALLERGIES ALLERGIES DATE TYPE / CODE NAME / CODE REACTION SEVERITY SOURCE 04/19/2014 Drug bupropion Other Unknown [place] Allergy/416 HCl/[id number](RX Community 489714(SNOM NORM) [facility] ED CT) Repository 04/19/2014 Drug gabapentin Other Unknown [place] Allergy/416 enacarbil/Q518045 Community 498784([facility] 726(RXNORM) [facility] ED CT) Repository 04/19/2014 DRUG GABAPENTIN Mental Chg [facility] INGREDI/419 ENACARBIL Main [place] 345169(SNOM Repository ED CT) 11/13/2011 DRUG BUPROPION HCL OTHER: SEE C [facility]/419 [facility] 411541(SNOM Repository ED CT) ENCOUNTERS ENCOUNTERS ADMIT/DISCHARGE ACCOUNT NUMBER ADMITTING ENCOUNTER LOCATION SOURCE CLASS 08/06/2018 [id number] Ambulatory [facility] ding:RAJANI.AVE Repository D 07/29/2018 [id number] Ambulatory [facility] ding: Repository 07/14/2018/07/18/20 [id number] Ambulatory [address] ding: Repository 07/10/2018/07/17/20 [id number] LAURIE GIFFORD, Inpatient ABuilding:ME Gwendolyn Fierro Encounter 4NRoom: [facility] 4604Bed: [facility] Repository 07/10/2018/07/10/20 [id number] Emergency BBuilding:MYNOR Baker [facility] Repository 07/07/2018 [id number] Ambulatory BMSBuilding: [facility] Repository 06/30/2018 [id number] Ambulatory BMSBuilding: [facility] Repository 06/16/2018 [id number] Ambulatory BMSBuilding: [facility] Repository 06/16/2018/06/17/20 [id number] Ambulatory [address] ding: Repository 06/08/2018 [id number] Ambulatory BMSBuilding: [facility] Repository 06/01/2018 [id number] Ambulatory BMSBuilding: [facility] Repository 05/25/2018 [id number] [facility] 05/18/2018/05/18/20 [id number] Ambulatory [address] ding: Repository 05/18/2018 [id number] [facility] 05/11/2018 [id number] [facility] 05/02/2018/05/03/20 [id number] FLO ARAGON Ambulatory [address] Other [place] Repository 04/29/2018/05/02/20 [id number] Ambulatory [address] [place] Repository 04/26/2018/04/28/20 [id number] Ambulatory [address] Repository 04/18/2018/04/19/20 [id number] FLO ARAGON Ambulatory [address] [place] Repository 04/12/2018/04/14/20 [id number] Ambulatory [address] [place] Repository 03/22/2018/03/24/20 [id number] Ambulatory [address] [place] Repository 02/22/2018/03/08/20 [id number] Leyva, Inpatient [place] [address] [facility] ding:RURoom: Repository HY074Jol: 1 02/22/2018 [id number] [place] Ambulatory BMSBuilding: [place] [facility] Repository 02/22/2018 [id number] [place] Ambulatory BMSBuilding: [place] [facility] Repository 02/22/2018 [id number] [place] Ambulatory BMSBuilding: [place] [facility] Repository 02/22/2018 [id number] [place] Ambulatory BMSBuilding: [place] [facility] Repository 02/22/2018 [id number] [place] Ambulatory BMSBuilding: [place] [facility] Repository 02/18/2018/02/23/20 [id number] FLO ARAGON Inpatient [address] Other [place] Repository 02/18/2018/02/19/20 [id number] Ambulatory [address] Repository 02/14/2018/02/15/20 [id number] Ambulatory [place] [facility] Other [place] Repository 02/14/2018/02/15/20 [id number] FLO ARAGON Ambulatory [place] [facility] Other [place] Repository 02/09/2018/02/10/20 [id number] Ambulatory [address] [place] Repository 02/09/2018/02/10/20 [id number] Ambulatory [address] [place] Repository 02/05/2018/02/06/20 [id number] Emergency [place] [facility] Other [place] Repository 02/04/2018/02/05/20 [id number] Emergency BBuilding:MYNOR Aggarwal [address] [place] [address] Repository 01/18/2018/01/26/20 [id number] Ambulatory [address] [place] Repository 12/21/2017/12/23/19 [id number] Ambulatory [address] [place] Repository 12/14/2017/12/15/19 [id number] Ambulatory [address] [place] Repository 12/14/2017/12/15/19 [id number] Ambulatory [address] [place] Repository 11/30/2017/12/01/19 [id number] Ambulatory [address] [place] Repository 11/23/2017/11/24/19 [id number] Emergency [place] [facility] Other [place] Repository 11/23/2017/11/24/19 [id number] Emergency BBuilding:MYNOR Aggarwal [address] [place] [address] Repository 11/11/2017/11/16/19 [id number] ANGEL BAIG [place]patient [place] [address] [facility] [place] Repository 11/11/2017/11/12/19 [id number] Ambulatory [address] [place] Repository 10/23/2017/10/26/19 [id number] Ambulatory [address] [place] Repository 10/22/2017/10/23/19 [id number] Ambulatory [place] [facility] [place] Repository 10/21/2017/10/25/19 [id number] KYLER, Inpatient [place] [facility] Encounter [facility] Other [place] Repository 10/21/2017/10/22/19 [id number] Ambulatory [place] [facility] [place] Repository 10/21/2017/10/22/19 [id number] Ambulatory [address] [place] Repository PAYERS PAYERS ENCOUNTER GUARANTOR PAYER SUBSCRIBER SOURCE 08/06/2018 Neil Mendenhall1852 Primary NOT GIVENUNK [place] Insurance:SELF PAY [facility] [id number]: (330) Number: Effective Repository [phone] () Date:2018-08-06 07/29/2018 Neil Mendenhall1852 Primary NOT GIVENUNK [place]ITH Insurance:SELF PAY [facility] [id number]: (330) Number: Effective Repository [phone] () Date:2018-07-19 07/14/2018 Neil Mendenhall1852 Primary Neil HightowerB: [place] SMITH Insurance:MEDICARE [id number] [place] PART A [facility] 26041Lqr: (330) Number: Repository [phone] () [id number] Date:2018-05-03 07/14/2018 Secondary NOT GIVENUNK [place] Insurance:SELF PAY [facility] Number: Effective Repository Date:2018-06-18 07/10/2018 NEIL HIGHTOWERB: Primary NEIL HIGHTOWERB: [facility] [id number] Insurance:[facility] [id number] [place] [address] INSURANCE PRIMARY 2 SMITH Repository [place] [place] [facility] Number[facility] [place], [place] [address]Oqc: ([phone] [id number]: () Date:2017-01-30 [phone] ()Tel: (000) Name:[id number] 000-0000 () [facility] [address], [place] [address]YO: 07/10/2018 Secondary NEIL HIGHTOWERB: [facility] Insurance:MEDICARE [id number] Foundation [facility] Repository Number: [place] [id number]: (330) Date:2018-07-10 [phone] ()Tel: (000) Name:MMail Code AG 000-0000 (WP) [address] [place] [id number], [place] [id number]: 07/10/2018 Tertiary NEIL HIGHTOWERB: [facility] Insurance:MEDICARE [id number] [place] [address] Repository Number: [place], [place] [id number] [address]Apm: (330) Date:[id number] ()Tel: (000) Name:[facility] 000-0000 (WP) Administrators [address] [address]QY: 07/10/2018 NEIL HIGHTOWERB: Primary NEIL HIGHTOWERB: [facility] [id number] Insurance:MEDICARE [id number] [place] [address] Repository [place] Number: [place], [place] [address]Hvi: (330) [id number]: () Date:2018-07-104634 [id number] ()Tel: (000) Name:[facility] 000-0000 () Administrators [address] [address]XL: 07/07/2018 Neil Reynoso2 Primary Neil MendenhallDOB: [place] Insurance:MEDICARE [id number] [place] PART A [facility] [address]Wpv: (330) Number: Repository [phone] () [id number] Date:2018-05-03 07/07/2018 Secondary NOT GIVENUNK [place] Insurance:SELF PAY [facility] Number: Effective Repository Date:2018-07-07 06/30/2018 Neil Reynoso2 Primary Neil Terri AbdirashidDOB: [place] Insurance:MEDICARE [id number] [facility] [address]Qjx: (330) Number: Repository [phone] () [id number] Date:2018-05-03 06/30/2018 Secondary NOT GIVENUNK [place] Insurance:SELF PAY [facility]: Effective Repository Date:2018-06-30 06/16/2018 Neil Reynoso2 Primary Neil MendenhallDOB: [place] Insurance:MEDICARE [id number] [place] PART A [facility] [address]Ffw: (330) Number: Repository [phone] () [id number] Date:2018-05-03 06/16/2018 Secondary NOT GIVENUNK [place] Insurance:SELF PAY [facility] Number: Effective Repository Date:2018-06-16 06/16/2018 Neil Reynoso2 Primary Neil MendenhallDOB: [place] Insurance:MEDICARE [id number] [facility] [address]Wim: (330) Number: Repository [phone] () [id number] Date:2018-05-03 06/16/2018 Secondary NOT GIVENUNK [place] Insurance:SELF PAY [facility] Number: Effective Repository Date:2018-05-19 06/08/2018 Neil Reynoso2 Primary Neil MendenhallDOB: [place] Insurance:MEDICARE [id number] [place] PART A [facility] [address]Vgy: (330) Number: Repository [phone] () [id number] Date:2018-05-03 06/08/2018 Secondary NOT GIVENUNK [place] Insurance:SELF PAY [facility] Number: Effective Repository Date:2018-06-08 06/01/2018 Neil Reynoso2 Primary Neil MendenhallDOB: [place] Insurance:MEDICARE [id number] [place] PART A [facility] [address]Ogi: (330) Number: Repository [phone] () [id number] Date:2018-05-03 06/01/2018 Secondary NOT GIVENUNK [place] Insurance:SELF PAY [facility] Number: Effective Repository Date:2018-06-01 05/25/2018 Neil Reynoso2 Primary Neil HightowerB: [place] Insurance:MEDICARE [id number] [place] PART A [facility] [address]Rev: (330) Number: Repository [phone] () [id number] Date:2018-05-03 05/25/2018 Secondary NOT GIVENUNK [place] Insurance:SELF PAY [facility] Number: Effective Repository Date:2018-05-25 05/18/2018 Neil Mendenhall1852 Primary Neil MendenhallDOB: [place] Insurance:MEDICARE [id number] [facility] [address]Inn: (330) Number: Repository [phone] () [id number] Date:2018-05-03 05/18/2018 Secondary NOT GIVENUNK [place] Insurance:SELF PAY [facility] Number: Effective Repository Date:2018-05-03 05/18/2018 Neil Reynoso2 Primary Neil MendenhallDOB: [place] Insurance:MEDICARE [id number] [facility] [address]Axv: (330) Number: Repository [phone] () [id number] Date:2018-05-03 05/18/2018 Secondary NOT GIVENUNK [place] Insurance:SELF PAY [facility] Number: Effective Repository Date:2018-05-18 05/11/2018 Neil Reynoso2 Primary Neil MendenhallDOB: [place] Insurance:MEDICARE [id number] A [facility] [address]Ban: (330) Number: Repository [phone] () [id number] Date:2018-05-03 05/11/2018 Secondary NOT GIVENUNK [place] Insurance:SELF PAY [facility] Number: Effective Repository Date:2018-05-11 02/22/2018 Neil Reynoso2 Primary Neil MendenhallDOB: [place] Insurance:MEDICARE [id number] [facility] A [facility] [address]Dyn: (330) Number: Repository [phone] () [id number] Date:2018-02-22 02/22/2018 Secondary NOT GIVENUNK [place] Insurance:SELF PAY [facility] Number: Effective Repository Date:2018-02-22 02/22/2018 Neil Mendenhall1852 Primary Neil MendenhallDOB: [place] Insurance:MEDICARE [id number] [place] PART A [facility] [address]Vtm: (330) Number: Repository [phone] () [id number] Date:2018-02-22 02/22/2018 Secondary NOT GIVENUNK [place] Insurance:SELF PAY [facility] Number: Effective Repository Date:2018-02-22 02/22/2018 Neil Mendenhall1852 Primary Neil MendenhallDOB: [place] Insurance:MEDICARE [id number] [place] PART A [facility] [address]Fsm: (330) Number: Repository [phone] () [id number] Date:2018-02-22 02/22/2018 Secondary NOT GIVENUNK [place] Insurance:SELF PAY [facility] Number: Effective Repository Date:2018-02-22 02/22/2018 Neil Reynoso2 Primary Neil MendenhallDOB: [place] Insurance:MEDICARE [id number] [facility] [address]Gtc: (330) Number: Repository [phone] () [id number] Date:2018-02-22 02/22/2018 Secondary NOT GIVENUNK [place] Insurance:SELF PAY [facility] Number: Effective Repository Date:2018-02-22 02/22/2018 Neil Reynoso2 Primary Neil MendenhallDOB: [place] Insurance:MEDICARE [id number] [place] [facility] [address]Eyd: (330) Number: Repository [phone] () [id number] Date:2018-02-22 02/22/2018 Secondary NOT GIVENUNK [place] Insurance:SELF PAY [facility] Number: Effective Repository Date:2018-02-22 02/22/2018 Neil Mendenhall1852 Primary Neil MendenhallDOB: [place] Insurance:MEDICARE [id number] [place] PART A [facility] [address]Orh: (330) Number: Repository [phone] () [id number] Date:2018-02-22 02/22/2018 Secondary NOT GIVENUNK [place] Insurance:SELF PAY [facility] Effective Repository Date:2018-02-22 02/04/2018 NEIL HIGHTOWERB: Primary NEIL MENDENHALLDOB: [facility] [id number] Insurance:MEDICARE [id number] [facility] BPolicy Number: [address] [place], [place] [id number] [place], [place] [address]Ade: (330) Date:2018-02-04 [id number]: () [id number] [phone] Name:[facility] ()Tel: (000) Administrators LLCPO 000-0000 (WP) [address] [place] [address]WZ: 11/23/2017 NEIL HIGHTOWERB: Primary NEIL HIGHTOWERB: [facility] [id number] Insurance:MEDICARE [id number] [facility] BPolicy Number: [address] [place], [place] [id number] [place], [place] [address]Tkf: (330) Date:2017-11-23 [id number]: () [id number] [phone] Name:[facility] ()Tel: (000) Administrators LLCPO 000-0000 (WP) [address] [place] [address]YE:
== END 2018-07-18 23:59 ==
LOC: WC 11:15
PROVIDERS: Family Provider Family Medicine; PCP Family Medicine; Visit Provider Internal Medicine
DX: T87.81 Dehiscence of amputation stump (principal); Y83.8 Other surgical procedures as the cause of abnormal reaction of the patient, or of later complication, without mention of misadventure at the time of the procedure; Z89.512 Acquired absence of left leg below knee
CPT/HCPCS: 11042; 97607; 99212; G0463